=== PATIENT | female | born 1930 | race African-American/Black ===

== ENCOUNTER 2016-10-10 15:51 | Inpatient (IN) | payer MEDICARE, MEDICAID ==
--- NOTE | 2016-10-10 18:16 | ER Document Report ---
ED General - General Chief Complaint: Fall Stated Complaint: KNEE PAIN Time seen by provider: 16:20 Mode of Arrival: Medic Information source: Relative Cannot obtain history due to: Dementia Notes: 86-year-old female who is brought by [facility] from dialysis with report of plan of hip and knee pain. We have no report patient fell recently by family reports that she fell 3 weeks ago and had x-rays obtained that were normal. The report the patient has been ambulatory with a walker at home with physical therapy up until this morning when she would not bear weight with the family had the impression was due to pain. Patient cannot provide useful history due to dementia. Patient reports dialysis today when normally for her. There are allergies had no fever, cough, vomiting, or change in mental status. Physical Exam: General: Alert, appears well. HEENT: Normocephalic. Atraumatic. PERRLA. Extraocular movements intact. Oropharynx clear. Neck: Supple. Non-tender. Respiratory: No respiratory distress. Clear and equal breath sounds bilaterally. Cardiovascular: Regular rate and rhythm. Abdominal: Normal Inspection. Soft, non-tender. No distension. Normal Bowel Sounds. Extremities: All warm with 2+ pulses of cyanosis no edema. Right lower extremity shortened and externally rotated. She is tenderness to palpation diffusely to the right knee thigh and hip and seems to localize pain and to the area of the greater trochanter. Dialysis access site at right upper extremity appears healthy Neuro. Patient is awake alert oriented to person only has difficulty cooperate with neurologic testing Skin: Warm. Dry. Normal color. TRAVEL OUTSIDE OF THE [place] IN LAST 30 DAYS: No - Related Data Allergies/Adverse Reactions: ciprofloxacin [Ciprofloxacin] Allergy (Severe, Verified 08/23/16 20:22) rash sulfamethoxazole [Sulfamethoxazole] Allergy (Unknown, Verified 08/23/16 20:22) rash Past Medical History - General Information source: Emergency Med Personnel - Social History Smoking Status: Never Smoker Chew tobacco use (# tins/day): No Frequency of alcohol use: None Drug Abuse: None Family History: Other - Unable to obtain due to dementia Patient has suicidal ideation: No Patient has homicidal ideation: No - Past Medical History Cardiac Medical History: Reports: Hx Congestive Heart Failure, Hx Coronary Artery Disease, Hx Hypercholesterolemia, Hx Hypertension - on meds Denies: Hx Atrial Fibrillation, Hx Heart Attack, Hx Pulmonary Embolism Pulmonary Medical History: Reports: Hx Asthma - inhalers, Hx Bronchitis - hx of , Hx COPD, Hx Pneumonia - hx of Denies: Hx Respiratory Failure, Hx Sleep Apnea, Hx Tuberculosis Neurological Medical History: Denies: Hx Cerebrovascular Accident, Hx Seizures Endocrine Medical History: Reports: Hx Diabetes Mellitus Type 2. 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 Denies: Hx Hysterectomy, Hx Pacemaker - Immunizations Immunizations up to date: Yes Hx Diphtheria, Pertussis, Tetanus Vaccination: Yes Hx Pneumococcal Vaccination: 10/13/09 Review of Systems - Review of Systems -: Yes ROS unobtainable due to patient's medical condition Physical Exam - Vital signs Vitals: Resp 16 10/10/16 16:10 Course - Re-evaluation Re-evalutation: 10/10/16 18:15 Nursing supervisor tunnel heading reports that hospital does have dialysis beds available. Dr. Delong orthopedics asked that patient's primary care physician admit the patient due to her dementia and dialysis. I discussed case with Dr. Richardson who agrees to admit the patient - Vital Signs Vital signs: Temp Pulse Resp BP Pulse Ox 98.1 F 78 16 174/66 H 95 10/10/16 16:13 10/10/16 16:13 10/10/16 16:13 10/10/16 16:13 10/10/16 16:13 - Diagnostic Test Radiology reviewed: Reports reviewed Discharge - Discharge Clinical Impression: Closed fracture of right hip Qualifiers: Encounter type: initial encounter Qualified Code(s): S72.001A - Fracture of unspecified part of neck of right femur, initial encounter for closed fracture Condition: Fair Disposition: ADMITTED INPATIENT Admitting Provider: Debra
--- NOTE | 2016-10-10 19:43 | EKG REPORT ---
SEVERITY:- ABNORMAL ECG - RIGHT BUNDLE BRANCH BLOCK LEFT VENTRICULAR HYPERTROPHY SINUS RHYTHM : Confirmed by: Vincenzo Vasquez MD 10-Oct-2016 19:42:57
[2016-10-10 22:16] LABS: HEMATOCRIT 33.9 % (36.0-47.0); HEMOGLOBIN 11.3 g/dL (12.0-15.5); MEAN CORPUSCULAR HEMOGLOBIN 28.6 pg (27.0-33.4); MEAN CORPUSCULAR HGB CONC 33.4 g/dL (32.0-36.0); MEAN CORPUSCULAR VOLUME 86 fl (80-97); PARTIAL THROMBOPLASTIN TIME 31.4 SEC (23.5-35.8); RED BLOOD COUNT 3.97 10^6/uL (3.72-5.28); RED CELL DISTRIBUTION WIDTH 19.6 % (11.5-14.0); WHITE BLOOD COUNT 7.3 10^3/uL (4.0-10.5)
[2016-10-10] MEDS ORDERED: DEXTROSE 40% GEL 15 GM TUBE PO PRN ×2 (22:16)
[2016-10-10] MEDS ORDERED: GLUCAGON,HUMAN RECOMB 1 MG INJ IM PRN (22:16)
[2016-10-10] MEDS ORDERED: DEXTROSE 50%-WATER 25 GM/50 ML DISP.SYRIN IV PRN ×2 (22:16)
[2016-10-10] MEDS ORDERED: ACETAMINOPHEN PO PRN (22:17)
[2016-10-10] MEDS ORDERED: MORPHINE SULFATE 10 MG/ML INJ IV PRN (22:20)
[2016-10-10 22:23] LABS: ALANINE AMINOTRANSFERASE 33 U/L (9-52); ALBUMIN 3.3 g/dL (3.5-5.0); ALKALINE PHOSPHATASE 123 U/L (38-126); ANION GAP 12 (5-19); ASPARTATE AMINO TRANSFERASE 34 U/L (14-36); BILIRUBIN,TOTAL 0.8 mg/dL (0.2-1.3); BLOOD UREA NITROGEN 13 mg/dL (7-20); CARBON DIOXIDE 26 mmol/L (22-30); CHLORIDE 97 mmol/L (98-107); CREATININE RESULT 2.78 mg/dL (0.52-1.25); GLUCOSE 119 mg/dL (75-110); POTASSIUM 3.9 mmol/L (3.6-5.0); SODIUM 135.1 mmol/L (137-145); TOTAL PROTEIN 7.4 g/dL (6.3-8.2)
[2016-10-10] MEDS ORDERED: INSULIN DETEMIR 100 UNIT/ML 3 ML PEN SUBCUT SCH (22:30)
[2016-10-10] MEDS ORDERED: (PENDING PHARMACY ID) (Timolol [Betimol] 1 DROP) OU SCH (22:30)
[2016-10-10] MEDS ORDERED: BUDESONIDE/FORMOTEROL 160-4.5 MCG 60 PUFF/6 GM MDI IH SCH (22:30)
[2016-10-10] MEDS ORDERED: FUROSEMIDE 40 MG TABLET PO ONE (22:30)
[2016-10-10] MEDS ORDERED: LINAGLIPTIN PO SCH (22:30)
[2016-10-10] MEDS ORDERED: ATORVASTATIN CALCIUM 20 MG TABLET PO ONE (22:30)
[2016-10-10] MEDS ORDERED: FOLIC ACID/VITAMIN B COMP W-C CAPSULE PO SCH (22:30)
[2016-10-10] MEDS ORDERED: DRONABINOL 2.5 MG CAPSULE PO ONE (22:30)
[2016-10-10 22:32] LABS: BASOPHILS % (MANUAL) 0 % (0-2); EOSINOPHILS % (MANUAL) 3 % (0-6); LYMPHOCYTES % (MANUAL) 10 % (13-45); TOTAL CELLS COUNTED 100
[2016-10-10 22:35] LABS: ANISOCYTOSIS 2+; OVALOCYTES SLIGHT; POIKILOCYTOSIS SLIGHT; POLYCHROMASIA SLIGHT; SCHISTOCYTES SLIGHT
[2016-10-10 22:36] LABS: TOXIC VACUOLATION PRESENT
[2016-10-10 22:37] LABS: TARGET CELLS 1+
[2016-10-10 22:44] LABS: LIPASE 22.3 U/L (23-300); MAGNESIUM 1.7 mg/dL (1.6-2.3)
[2016-10-10] MEDS ORDERED: DOCUSATE SODIUM 100 MG CAPSULE PO ONE (23:00)
[2016-10-10] MEDS ORDERED: CITALOPRAM HYDROBROMIDE 20 MG TABLET PO ONE (23:00)
[2016-10-11] MEDS ORDERED: DRONABINOL 2.5 MG CAPSULE ONE (00:35)
[2016-10-11 00:38] LABS: THYROID STIMULATING HORMONE 2.16 uIU/mL (0.47-4.68)
[2016-10-11 05:12] LABS: HEMATOCRIT 35.1 % (36.0-47.0); HEMOGLOBIN 11.5 g/dL (12.0-15.5); HGB HCT DIFFERENCE -0.6; MEAN CORPUSCULAR HEMOGLOBIN 28.2 pg (27.0-33.4); MEAN CORPUSCULAR HGB CONC 32.7 g/dL (32.0-36.0); MEAN CORPUSCULAR VOLUME 86 fl (80-97); RED BLOOD COUNT 4.08 10^6/uL (3.72-5.28); RED CELL DISTRIBUTION WIDTH 20.1 % (11.5-14.0); WHITE BLOOD COUNT 7.5 10^3/uL (4.0-10.5)
[2016-10-11 05:22] LABS: LYMPHOCYTES % (AUTO) 14.3 % (13-45); MONOCYTES % (AUTO) 19.8 % (3-13); SEGMENTED NEUTROPHILS % (AUTO) 64.3 % (42-78)
[2016-10-11] MEDS: HEPARIN SOD (PORCINE) 5,000 UNIT/ML 1 ML SYRINGE SUBCUT SCH ×3 (05:22→23:00)
[2016-10-11 05:23] LABS: ABSOLUTE EOSINOPHILS # (AUTO) 0.1 10^3/uL (0.0-0.6); ABSOLUTE LYMPHOCYTES (AUTO) 1.1 10^3/uL (0.5-4.7); ABSOLUTE MONOCYTES (AUTO) 19.8 10^3/uL (0.1-1.4); ABSOLUTE NEUT (AUTO) 4.8 10^3/uL (1.7-8.2); BASOPHILS % (AUTO) 0.6 % (0-2)
[2016-10-11 05:29] LABS: ALANINE AMINOTRANSFERASE 41 U/L (9-52); ALBUMIN 3.4 g/dL (3.5-5.0); ALKALINE PHOSPHATASE 124 U/L (38-126); ANION GAP 10 (5-19); ASPARTATE AMINO TRANSFERASE 34 U/L (14-36); BILIRUBIN,TOTAL 0.9 mg/dL (0.2-1.3); BLOOD UREA NITROGEN 16 mg/dL (7-20); CALCIUM 9.1 mg/dL (8.4-10.2); CARBON DIOXIDE 28 mmol/L (22-30); CHLORIDE 97 mmol/L (98-107); CREATININE RESULT 3.06 mg/dL (0.52-1.25); Direct HDL 40 mg/dL (>40); GLUCOSE 128 mg/dL (75-110); TOTAL PROTEIN 7.5 g/dL (6.3-8.2); TRIGLYCERIDES 64 mg/dL (<150)
[2016-10-11 05:41] LABS: DIRECT LDL 49 mg/dL (<100)
[2016-10-11 05:45] LABS: CREATINE KINASE < 20 U/L (30-135)
--- NOTE | 2016-10-11 06:35 | PDOC CONSULTATION ---
Consultation Consult Date: 10/11/16 Attending physician:: ALONDRA PHILLIPS Consult reason:: Right hip pain History of Present Illness Admission Date/PCP: 10/10/16 22:09 ALONDRA PHILLIPS, Patient complains of: Patient complaining of being cold. Otherwise unable to relate a coherent history. History of Present Illness: VAISHALI GODOY is a 86 year old female Past Medical History Cardiac Medical History: Reports: Congestive Heart Failure, Coronary Artery Disease, Hyperlipidema, Hypertension - on meds Denies: Atrial Fibrillation, Myocardial Infarction, Pulmonary Embolism Pulmonary Medical History: Reports: Asthma - inhalers, Bronchitis - hx of, Chronic Obstructive Pulmonary Disease (COPD), Pneumonia - hx of Denies: Respiratory Failure, Sleep Apnea, Tuberculosis Neurological Medical History: Denies: Seizures Endocrine Medical History: Reports: Diabetes Mellitus Type 2 Denies: Diabetes Mellitus Type 1 Renal/ Medical History: Reports: End Stage Renal Disease - End-stage renal disease on maintenance hemodialysis Malignancy Medical History: Denies: Lung Cancer GI Medical History: Denies: Gastroesophageal Reflux Disease, Hiatal Hernia Musculoskeltal Medical History: Reports: 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 Denies: Fibromyalgia Psychiatric Medical History: Denies: Depression Hematology: Reports: Anemia - hx of Past Surgical History Past Surgical History: Reports: Cardiac Catheterization - cardiac stent 2010, Vascular Surgery - Fistula to the right arm for dialysis Denies: Amputation, Hysterectomy, Pacemaker Social History Information Source: [facility] Records Lives with: Jail Smoking Status: Never Smoker Frequency of Alcohol Use: None Hx Recreational Drug Use: No Drugs: None Hx Prescription Drug Abuse: No Family History Family History: Other - Unable to obtain due to dementia Parental Family History Reviewed: No Children Family History Reviewed: No Sibling(s) Family History Reviewed.: No Medication/Allergy Home Medications: Acetaminophen [Tylenol Arthritis 650 mg Tablet] 1 tab PO Q6 PRN 06/11/14 Albuterol Sulfate [Proair HFA] 2 puff PO Q4H 06/11/14 Aspirin [Ecotrin] 81 mg PO DAILY 06/11/14 Brimonidine Tartrate [Alphagan 0.2% Oph Soln 5 ml] 1 drop OU BID 06/11/14 Carvedilol [Coreg] 2.5 tab PO BID 06/11/14 Ferrous Sulfate [Iron Supplement] 1 tab PO BID 06/11/14 Fexofenadine HCl [Debi] 180 mg PO DAILY 06/11/14 Insulin Aspart [Novolog Flexpen] 5 units SUBCUT AC 06/11/14 Insulin Detemir [Levemir Flextouch] 10 units SUBCUT QHS 06/11/14 Insulin Detemir [Levemir Flextouch] 30 units SUBCUT QAM 06/11/14 Linagliptin [Tradjenta] 1 tab PO DAILY 06/11/14 Omeprazole 20 mg PO DAILY 06/11/14 Timolol [Betimol] 1 drop OU BID 06/11/14 Azelastine/Fluticasone [Dymista Nasal [place]] 1 spray NS BID 10/17/15 B Complex & C No.20/Folic Acid [Renal Caps Softgel] 1 mg PO DAILY 10/17/15 Epoetin Johnathan [Procrit Inj 20,000 Unit/1 ml Vial (Renal)] 10,000 unit IV .DIALYSIS PRN #0 ml 10/25/15 Furosemide [Lasix 40 mg Tablet] 40 mg PO BID #60 tablet 10/25/15 Docusate Sodium [Stool Softener] 100 mg PO DAILY 11/17/15 Mirtazapine 7.5 mg PO QHS 11/17/15 Atorvastatin Calcium [Lipitor 20 mg Tablet] 20 mg PO QHS 07/20/16 Citalopram Hydrobromide [Celexa 20 mg Tablet] 20 mg PO DAILY 07/20/16 Dronabinol [Marinol] 5 mg PO BID 07/20/16 Budesonide/Formoterol Fumarate [Symbicort HFA 160-4.5 mcg Inhaler 6 gm] 60 puff IH PRN PRN 08/26/16 Guaifenesin/Dextromethorphan [Tussin Dm Cough & Chest Liquid] 237 ml PO PRN PRN 08/26/16 Allergies/Adverse Reactions: ciprofloxacin [Ciprofloxacin] Allergy (Severe, Verified 08/23/16 20:22) rash sulfamethoxazole [Sulfamethoxazole] Allergy (Unknown, Verified 08/23/16 20:22) rash Review of Systems ROS unobtainable: Due to mental status Physical Exam Vital Signs: Temp Pulse Resp BP Pulse Ox 36.8 C 79 16 164/65 H 96 10/10/16 23:11 10/10/16 23:11 10/10/16 23:11 10/10/16 23:11 10/10/16 23:11 Intake & Output 10/09/16 10/10/16 10/11/16 06:59 06:59 06:59 Intake Total 240 Balance 240 Weight 67.5 kg General appearance: PRESENT: mild distress Head exam: PRESENT: normocephalic Respiratory exam: PRESENT: unlabored Cardiovascular exam: PRESENT: RRR Pulses: PRESENT: +1 pedal pulses bilateral Vascular exam: PRESENT: normal capillary refill GI/Abdominal exam: PRESENT: soft Rectal exam: PRESENT: deferred Extremities exam: PRESENT: other - Right lower extremity shortened and externally rotated. This brisk capillary refill to the digits. Sensory examination is intact. Motor examination is inconsistent Psychiatric exam: PRESENT: depressed Results Laboratory Results: 10/11/16 04:06 10/11/16 04:06 10/11/16 10/11/16 04:06 04:06 WBC 7.5 RBC 4.08 Hgb 11.5 L Hct 35.1 L MCV 86 MCH 28.2 MCHC 32.7 RDW 20.1 H Plt Count 268 Seg Neutrophils % 64.3 Lymphocytes % 14.3 Monocytes % 19.8 H Eosinophils % 1.0 Basophils % 0.6 Absolute Neutrophils 4.8 Absolute Lymphocytes 1.1 Absolute Monocytes 19.8 H Absolute Eosinophils 0.1 Absolute Basophils 0.0 Sodium 135.0 L Potassium 4.0 Chloride 97 L Carbon Dioxide 28 Anion Gap 10 BUN 16 Creatinine 3.06 H Est GFR ( Amer) 17 L Est GFR (Non-Af Amer) 14 L Glucose 128 H Calcium 9.1 Total Bilirubin 0.9 AST 34 ALT 41 Alkaline Phosphatase 124 Total Protein 7.5 Albumin 3.4 L Triglycerides 64 Cholesterol 121.30 LDL Cholesterol Direct 49 VLDL Cholesterol 13.0 HDL Cholesterol 40 10/11/16 10/11/16 04:06 04:06 Creatine Kinase < 20 L Troponin I 0.029 Impressions: Hip/Pelvis X-Ray 10/10/16 16:26 IMPRESSION: Right femoral neck fracture with mild varus angulation and impaction. Knee X-Ray 10/10/16 16:27 IMPRESSION: NO RADIOGRAPHIC EVIDENCE OF ACUTE INJURY. Chest X-Ray 10/10/16 17:45 IMPRESSION: CARDIAC ENLARGEMENT. VASCULAR CONGESTION. Status: Image reviewed by me - Radiographs from 09/25/2016 demonstrate a valgus impacted right femoral neck fracture. Current radiographs demonstrated displaced right femoral neck fracture. Assessment & Plan - Diagnosis (1) Closed right hip fracture Qualifiers: Encounter type: initial encounter Qualified Code(s): S72.001A - Fracture of unspecified part of neck of right femur, initial encounter for closed fracture Is this a current diagnosis for this admission?: YesPlan: 86-year-old black female with multiple ongoing medical comorbidities including dialysis dependent renal failure now with a displaced right femoral neck fracture. The treatment recommended would be hemiarthroplasty. This is an operation that could be performed under regional anesthetic in approximately 25 minutes with approximately 100 mL of blood loss. Surgery will be scheduled pending medical clearance. - Time Time Spent: 50 to 70 Minutes Critical Time spent with patient: 15-24 minutes Anticipated discharge: SNF Within: Other
--- NOTE | 2016-10-11 12:19 | PDOC H&P ---
History of Present Illness Admission Date/PCP: 10/10/16 22:09 ALONDRA PHILLIPS, History of Present Illness: Patient 86-year-old female with end-stage renal disease on maintenance hemodialysis, she was transferred from dialysis center to the emergency room because of pain in the right hip and she was unable to bear weight. She fell about 3 weeks ago and at that time she was seen in the office. X-rays were done and it was negative for any acute fracture. In the emergency room she was evaluated. X-rays were done and it showed fracture of the neck of the right femur, patient is to be admitted to be seen by orthopedic for surgery. Past Medical History Cardiac Medical History: Reports: Congestive Heart Failure, Coronary Artery Disease, Hyperlipidema, Hypertension - on meds Pulmonary Medical History: Reports: Asthma - inhalers, Bronchitis - hx of, Chronic Obstructive Pulmonary Disease (COPD), Pneumonia - hx of Endocrine Medical History: Reports: Diabetes Mellitus Type 2 Renal/ Medical History: Reports: End Stage Renal Disease - End-stage renal disease on maintenance hemodialysis Musculoskeltal Medical History: Reports: 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 Hematology: Reports: Anemia - hx of Past Surgical History Past Surgical History: Reports: Cardiac Catheterization - cardiac stent 2010, Vascular Surgery - Fistula to the right arm for dialysis Social History Lives with: Retirement Smoking Status: Never Smoker Frequency of Alcohol Use: None Hx Recreational Drug Use: No Drugs: None Hx Prescription Drug Abuse: No Family History Family History: Other - Unable to obtain due to dementia Parental Family History Reviewed: Yes Children Family History Reviewed: Yes Sibling(s) Family History Reviewed.: Yes Medication/Allergy Home Medications: Acetaminophen [Tylenol Arthritis 650 mg Tablet] 1 tab PO Q6 PRN 06/11/14 Albuterol Sulfate [Proair HFA] 2 puff PO Q4H 06/11/14 Aspirin [Ecotrin] 81 mg PO DAILY 06/11/14 Brimonidine Tartrate [Alphagan 0.2% Oph Soln 5 ml] 1 drop OU BID 06/11/14 Carvedilol [Coreg] 2.5 tab PO BID 06/11/14 Ferrous Sulfate [Iron Supplement] 1 tab PO BID 06/11/14 Fexofenadine HCl [Debi] 180 mg PO DAILY 06/11/14 Insulin Aspart [Novolog Flexpen] 5 units SUBCUT AC 06/11/14 Insulin Detemir [Levemir Flextouch] 10 units SUBCUT QHS 06/11/14 Insulin Detemir [Levemir Flextouch] 30 units SUBCUT QAM 06/11/14 Linagliptin [Tradjenta] 1 tab PO DAILY 06/11/14 Omeprazole 20 mg PO DAILY 06/11/14 Timolol [Betimol] 1 drop OU BID 06/11/14 Azelastine/Fluticasone [Dymista Nasal [place]] 1 spray NS BID 10/17/15 B Complex & C No.20/Folic Acid [Renal Caps Softgel] 1 mg PO DAILY 10/17/15 Epoetin Johnathan [Procrit Inj 20,000 Unit/1 ml Vial (Renal)] 10,000 unit IV .DIALYSIS PRN #0 ml 10/25/15 Furosemide [Lasix 40 mg Tablet] 40 mg PO BID #60 tablet 10/25/15 Docusate Sodium [Stool Softener] 100 mg PO DAILY 11/17/15 Mirtazapine 7.5 mg PO QHS 11/17/15 Atorvastatin Calcium [Lipitor 20 mg Tablet] 20 mg PO QHS 07/20/16 Citalopram Hydrobromide [Celexa 20 mg Tablet] 20 mg PO DAILY 07/20/16 Dronabinol [Marinol] 5 mg PO BID 07/20/16 Budesonide/Formoterol Fumarate [Symbicort HFA 160-4.5 mcg Inhaler 6 gm] 60 puff IH PRN PRN 08/26/16 Guaifenesin/Dextromethorphan [Tussin Dm Cough & Chest Liquid] 237 ml PO PRN PRN 08/26/16 Allergies/Adverse Reactions: ciprofloxacin [Ciprofloxacin] Allergy (Severe, Verified 08/23/16 20:22) rash sulfamethoxazole [Sulfamethoxazole] Allergy (Unknown, Verified 08/23/16 20:22) rash Review of Systems ROS unobtainable: Other Constitutional: ABSENT: chills, fever(s), headache(s), weight gain, weight loss Eyes: ABSENT: visual disturbances Ears: ABSENT: hearing changes Cardiovascular: ABSENT: chest pain, dyspnea on exertion, edema, orthropnea, palpitations Respiratory: ABSENT: cough, hemoptysis Gastrointestinal: ABSENT: abdominal pain, constipation, diarrhea, hematemesis, hematochezia, nausea, vomiting Genitourinary: ABSENT: dysuria, hematuria Musculoskeletal: PRESENT: other - joint pain Integumentary: ABSENT: rash, wounds Neurological: ABSENT: abnormal gait, abnormal speech, confusion, dizziness, focal weakness, syncope Psychiatric: ABSENT: anxiety, depression, homidical ideation, suicidal ideation Endocrine: ABSENT: cold intolerance, heat intolerance, menstrual abnormalities, polydipsia, polyuria Hematologic/Lymphatic: ABSENT: easy bleeding, easy bruising, lymphadenopathy Physical Exam Vital Signs: Temp Pulse Resp BP Pulse Ox 98.3 F 79 16 164/65 H 96 10/10/16 23:11 10/10/16 23:11 10/10/16 23:11 10/10/16 23:11 10/10/16 23:11 Intake & Output 10/10/16 10/11/16 10/12/16 06:59 06:59 06:59 Intake Total 240 Balance 240 Weight 67.5 kg General appearance: PRESENT: no acute distress Eye exam: PRESENT: PERRLA Respiratory exam: PRESENT: clear to auscultation kennedi Cardiovascular exam: PRESENT: +S1, +S2 GI/Abdominal exam: PRESENT: soft Neurological exam: PRESENT: alert, CN II-XII grossly intact Results Laboratory Results: 10/11/16 04:06 10/11/16 04:06 10/11/16 10/11/16 04:06 04:06 WBC 7.5 RBC 4.08 Hgb 11.5 L Hct 35.1 L MCV 86 MCH 28.2 MCHC 32.7 RDW 20.1 H Plt Count 268 Seg Neutrophils % 64.3 Lymphocytes % 14.3 Monocytes % 19.8 H Eosinophils % 1.0 Basophils % 0.6 Absolute Neutrophils 4.8 Absolute Lymphocytes 1.1 Absolute Monocytes 19.8 H Absolute Eosinophils 0.1 Absolute Basophils 0.0 Sodium 135.0 L Potassium 4.0 Chloride 97 L Carbon Dioxide 28 Anion Gap 10 BUN 16 Creatinine 3.06 H Est GFR ( Amer) 17 L Est GFR (Non-Af Amer) 14 L Glucose 128 H Calcium 9.1 Total Bilirubin 0.9 AST 34 ALT 41 Alkaline Phosphatase 124 Total Protein 7.5 Albumin 3.4 L Triglycerides 64 Cholesterol 121.30 LDL Cholesterol Direct 49 VLDL Cholesterol 13.0 HDL Cholesterol 40 10/11/16 10/11/16 10/11/16 04:06 04:06 10:43 Creatine Kinase < 20 L < 20 L Troponin I 0.029 10/11/16 10:43 Creatine Kinase Troponin I 0.023 Impressions: Hip/Pelvis X-Ray 10/10/16 16:26 IMPRESSION: Right femoral neck fracture with mild varus angulation and impaction. Knee X-Ray 10/10/16 16:27 IMPRESSION: NO RADIOGRAPHIC EVIDENCE OF ACUTE INJURY. Chest X-Ray 10/10/16 17:45 IMPRESSION: CARDIAC ENLARGEMENT. VASCULAR CONGESTION. Assessment & Plan - Diagnosis (1) Closed right hip fracture Qualifiers: Encounter type: initial encounter Qualified Code(s): S72.001A - Fracture of unspecified part of neck of right femur, initial encounter for closed fracture Is this a current diagnosis for this admission?: YesPlan: Management per orthopedic (2) End-stage renal disease on hemodialysis Is this a current diagnosis for this admission?: YesPlan: Consultation from nephrology for hemodialysis
[2016-10-11] MEDS: DRONABINOL 2.5 MG CAPSULE PO SCH ×2 (12:55→17:13)
[2016-10-11] MEDS: CITALOPRAM HYDROBROMIDE 20 MG TABLET PO SCH (12:56)
[2016-10-11] MEDS: ACETAMINOPHEN 325 MG TABLET PO PRN ×3 (12:56→23:01)
[2016-10-11] MEDS: FUROSEMIDE 40 MG TABLET PO SCH ×2 (12:58→17:13)
[2016-10-11] MEDS: CARVEDILOL 12.5 MG TABLET PO SCH ×2 (12:58→22:59)
[2016-10-11] MEDS: DOCUSATE SODIUM 100 MG CAPSULE PO SCH (12:58)
--- NOTE | 2016-10-11 17:37 | PDOC CONSULTATION ---
Consultation Consult Date: 10/11/16 Attending physician:: ALONDRA PHILLIPS Consult reason:: I was asked by Dr. Phillips to see this patient to supervise dialysis will admitted to the hospital. History of Present Illness Admission Date/PCP: 10/10/16 22:09 ALONDRA PHILLIPS, History of Present Illness: Patient 86-year-old female with end-stage renal disease on maintenance hemodialysis, she was transferred from dialysis center to the emergency room because of pain in the right hip and she was unable to bear weight. She fell about 3 weeks ago and at that time she was seen in the office Dr. Phillips. X- rays were done . In the emergency room she was evaluated. X-rays were done and it showed fracture of the neck of the right femur, patient is to be admitted to be seen by orthopedic for surgery. Orthopedic surgeon, Dr. Neff was consulted and he recommended to do hemiarthroplasty. I saw the patient during dialysis to around 8:30 AM this morning. She could not tell me why she is in the hospital. She tells me she just feels sick but could not really explain it. She has baseline dementia and cannot give any further history. During dialysis her blood pressure is slightly elevated otherwise she was stable. There was an issue with her giving consent because she was initially refusing dialysis so our dialysis nurse had to call her daughter to give consent. Otherwise she tolerated dialysis very well without any problems. 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 Psychiatric Medical History: Reports: Dementia Infectious Medical History: Reports: Methicillin-resist Staph Aureus Hematology Medical History: Reports Anemia of Chronic Kidney Disease Past Surgical History Past Surgical History: Reports: Cardiac Catheterization - cardiac stent 2010, Coronary Stent, Dialysis Access Surgery AVF, Orthopedic Surgery - Back surgery Social History Lives with: Family Smoking Status: Never Smoker Frequency of Alcohol Use: None Hx Recreational Drug Use: No Drugs: None Hx Prescription Drug Abuse: No Family History Family History: CVA - Father, DM - Sister and brother and parents, Malignancy - Mother Parental Family History Reviewed: Yes Children Family History Reviewed: Unknown Sibling(s) Family History Reviewed.: Yes Medication/Allergy Home Medications: Acetaminophen [Tylenol Arthritis 650 mg Tablet] 1 tab PO Q6 PRN 06/11/14 Albuterol Sulfate [Proair HFA] 2 puff PO Q4H 06/11/14 Aspirin [Ecotrin] 81 mg PO DAILY 06/11/14 Brimonidine Tartrate [Alphagan 0.2% Oph Soln 5 ml] 1 drop OU BID 06/11/14 Carvedilol [Coreg] 2.5 tab PO BID 06/11/14 Ferrous Sulfate [Iron Supplement] 1 tab PO BID 06/11/14 Fexofenadine HCl [Debi] 180 mg PO DAILY 06/11/14 Insulin Aspart [Novolog Flexpen] 5 units SUBCUT AC 06/11/14 Insulin Detemir [Levemir Flextouch] 10 units SUBCUT QHS 06/11/14 Insulin Detemir [Levemir Flextouch] 30 units SUBCUT QAM 06/11/14 Linagliptin [Tradjenta] 1 tab PO DAILY 06/11/14 Omeprazole 20 mg PO DAILY 06/11/14 Timolol [Betimol] 1 drop OU BID 06/11/14 Azelastine/Fluticasone [Dymista Nasal [place]] 1 spray NS BID 10/17/15 B Complex & C No.20/Folic Acid [Renal Caps Softgel] 1 mg PO DAILY 10/17/15 Epoetin Johnathan [Procrit Inj 20,000 Unit/1 ml Vial (Renal)] 10,000 unit IV .DIALYSIS PRN #0 ml 10/25/15 Furosemide [Lasix 40 mg Tablet] 40 mg PO BID #60 tablet 10/25/15 Docusate Sodium [Stool Softener] 100 mg PO DAILY 11/17/15 Mirtazapine 7.5 mg PO QHS 11/17/15 Atorvastatin Calcium [Lipitor 20 mg Tablet] 20 mg PO QHS 07/20/16 Citalopram Hydrobromide [Celexa 20 mg Tablet] 20 mg PO DAILY 07/20/16 Dronabinol [Marinol] 5 mg PO BID 07/20/16 Budesonide/Formoterol Fumarate [Symbicort HFA 160-4.5 mcg Inhaler 6 gm] 60 puff IH PRN PRN 08/26/16 Guaifenesin/Dextromethorphan [Tussin Dm Cough & Chest Liquid] 237 ml PO PRN PRN 08/26/16 Allergies/Adverse Reactions: ciprofloxacin [Ciprofloxacin] Allergy (Severe, Verified 08/23/16 20:22) rash sulfamethoxazole [Sulfamethoxazole] Allergy (Unknown, Verified 08/23/16 20:22) rash Review of Systems ROS unobtainable: Due to mental status - Patient has baseline dementia and could not really tell me much. Physical Exam Vital Signs: Temp Pulse Resp BP Pulse Ox 98.5 F 81 18 152/59 H 95 10/11/16 15:45 10/11/16 15:45 10/11/16 15:45 10/11/16 15:45 10/11/16 15:45 Intake & Output 10/10/16 10/11/16 10/12/16 06:59 06:59 06:59 Intake Total 240 0 Balance 240 0 Weight 67.5 kg Vital signs during dialysis when I saw her this morning: Blood pressure of 163/ 65, heart rate of 85, blood flow rate of 300 mL per minute, dialysate flow rate of 600 mL per minute. Exam: General appearance: no acute distress, cooperative, well-developed, well- nourished Head exam: PRESENT: atraumatic, normocephalic Eye exam: PRESENT: Conjunctiva [place], EOMI, PERRLA. ABSENT: conjunctival injection, scleral icterus Mouth exam: PRESENT: moist, neck supple, tongue midline Neck exam: PRESENT: full ROM. ABSENT: carotid bruit, JVD, lymphadenopathy, thyromegaly Respiratory exam: PRESENT: clear to auscultation bilaterally. ABSENT: rales, rhonchi, stridor, wheezes Cardiovascular exam: PRESENT: RRR, +S1, +S2. ABSENT: systolic murmur Pulses: PRESENT: normal radial pulses, normal dorsalis pedis pulses GI/Abdominal exam: PRESENT: normal bowel sounds, soft. ABSENT: guarding, mass, tenderness Rectal exam: deferred Extremities exam: PRESENT: full ROM. ABSENT: calf tenderness, pedal edema Musculoskeletal: PRESENT: full ROM. ABSENT: deformity Neurological exam: PRESENT: alert, Awake, Oriented to person, Oriented to place , not oriented to time, reflexes normal, CN II-XII grossly intact. ABSENT: motor sensory deficit Psychiatric exam: PRESENT: appropriate affect, normal mood. ABSENT: homicidal ideation, suicidal ideation Skin exam: PRESENT: intact, dry, warm. ABSENT: rash Results Laboratory Results: 10/11/16 04:06 10/11/16 04:06 10/11/16 10/11/16 04:06 04:06 WBC 7.5 RBC 4.08 Hgb 11.5 L Hct 35.1 L MCV 86 MCH 28.2 MCHC 32.7 RDW 20.1 H Plt Count 268 Seg Neutrophils % 64.3 Lymphocytes % 14.3 Monocytes % 19.8 H Eosinophils % 1.0 Basophils % 0.6 Absolute Neutrophils 4.8 Absolute Lymphocytes 1.1 Absolute Monocytes 19.8 H Absolute Eosinophils 0.1 Absolute Basophils 0.0 Sodium 135.0 L Potassium 4.0 Chloride 97 L Carbon Dioxide 28 Anion Gap 10 BUN 16 Creatinine 3.06 H Est GFR ( Amer) 17 L Est GFR (Non-Af Amer) 14 L Glucose 128 H Calcium 9.1 Total Bilirubin 0.9 AST 34 ALT 41 Alkaline Phosphatase 124 Total Protein 7.5 Albumin 3.4 L Triglycerides 64 Cholesterol 121.30 LDL Cholesterol Direct 49 VLDL Cholesterol 13.0 HDL Cholesterol 40 10/11/16 10/11/16 10/11/16 04:06 04:06 10:43 Creatine Kinase < 20 L < 20 L Troponin I 0.029 10/11/16 10:43 Creatine Kinase Troponin I 0.023 Impressions: Hip/Pelvis X-Ray 10/10/16 16:26 IMPRESSION: Right femoral neck fracture with mild varus angulation and impaction. Knee X-Ray 10/10/16 16:27 IMPRESSION: NO RADIOGRAPHIC EVIDENCE OF ACUTE INJURY. Chest X-Ray 10/10/16 17:45 IMPRESSION: CARDIAC ENLARGEMENT. VASCULAR CONGESTION. Assessment & Plan - Diagnosis (1) End-stage renal disease on hemodialysis Is this a current diagnosis for this admission?: YesPlan: We did dialysis today for 3 hours, using the patient's AV fistula, with 3 potassium bath, blood flow rate of 300 mL per minute, dialysate flow rate of 600 mL per minute, ultrafiltration as tolerated, no heparin and no Procrit during dialysis We'll continue hemodialysis support while here in the hospital. From nephrology standpoint no contraindication for patient to do a hemiarthroplasty. (2) Hypertension Is this a current diagnosis for this admission?: YesPlan: Continue current blood pressure medications. (3) Closed right hip fracture Qualifiers: Encounter type: initial encounter Qualified Code(s): S72.001A - Fracture of unspecified part of neck of right femur, initial encounter for closed fracture Is this a current diagnosis for this admission?: YesPlan: Management per orthopedic surgeon. - Notes Notes: Thank you very much for this consultation. I will continue to supervise dialysis will the patient is here in the hospital. - Time Time Spent: 30 to 50 Minutes
[2016-10-11] MEDS: ATORVASTATIN CALCIUM 20 MG TABLET PO SCH (22:59)
[2016-10-12] MEDS: HEPARIN SOD (PORCINE) 5,000 UNIT/ML 1 ML SYRINGE SUBCUT SCH ×3 (05:18→21:05)
[2016-10-12] MEDS: ACETAMINOPHEN 325 MG TABLET PO PRN ×3 (05:28→18:10)
[2016-10-12 06:19] LABS: HEMOGLOBIN 10.6 g/dL (12.0-15.5); HGB HCT DIFFERENCE -0.2; MEAN CORPUSCULAR HEMOGLOBIN 28.7 pg (27.0-33.4); MEAN CORPUSCULAR HGB CONC 33.2 g/dL (32.0-36.0); MEAN CORPUSCULAR VOLUME 87 fl (80-97); RED CELL DISTRIBUTION WIDTH 19.4 % (11.5-14.0); WHITE BLOOD COUNT 7.5 10^3/uL (4.0-10.5)
[2016-10-12 06:44] LABS: ALANINE AMINOTRANSFERASE 36 U/L (9-52); ALBUMIN 2.7 g/dL (3.5-5.0); ALKALINE PHOSPHATASE 118 U/L (38-126); ANION GAP 11 (5-19); ASPARTATE AMINO TRANSFERASE 25 U/L (14-36); BILIRUBIN,TOTAL 0.6 mg/dL (0.2-1.3); BLOOD UREA NITROGEN 17 mg/dL (7-20); CALCIUM 9.2 mg/dL (8.4-10.2); CARBON DIOXIDE 30 mmol/L (22-30); CHLORIDE 97 mmol/L (98-107); CREATININE RESULT 3.09 mg/dL (0.52-1.25); GLUCOSE 156 mg/dL (75-110); POTASSIUM 3.6 mmol/L (3.6-5.0); SODIUM 137.7 mmol/L (137-145); TOTAL PROTEIN 6.7 g/dL (6.3-8.2)
[2016-10-12 07:17] LABS: BASOPHILS % (MANUAL) 0 % (0-2); EOSINOPHILS % (MANUAL) 3 % (0-6); LYMPHOCYTES % (MANUAL) 5 % (13-45); TOTAL CELLS COUNTED 100
[2016-10-12 07:18] LABS: ANISOCYTOSIS 1+; OVALOCYTES SLIGHT; POIKILOCYTOSIS 2+; POLYCHROMASIA SLIGHT; TARGET CELLS 1+; TEAR DROP CELLS SLIGHT
--- NOTE | 2016-10-12 09:04 | PDOC PROGRESS REPORT ---
Subjective Progress Note for:: 10/12/16 Subjective:: Patient's minimally responsive Physical Exam Vital Signs: Temp Pulse Resp BP Pulse Ox 36.9 C 79 18 139/51 H 95 10/12/16 00:00 10/12/16 00:00 10/12/16 00:00 10/12/16 00:00 10/12/16 00:00 Intake & Output 10/11/16 10/12/16 10/13/16 06:59 06:59 06:59 Intake Total 240 120 0 Output Total 0 Balance 240 120 0 Weight 67.5 kg 68.3 kg General appearance: PRESENT: no acute distress Head exam: PRESENT: normocephalic Vascular exam: PRESENT: normal capillary refill GI/Abdominal exam: PRESENT: soft Musculoskeletal exam: PRESENT: other - Right lower extremity shortened and excellent rotated. This brisk capillary refill. Results Laboratory Results: 10/12/16 05:53 10/12/16 05:53 10/12/16 10/12/16 05:53 05:53 WBC 7.5 RBC 3.70 L Hgb 10.6 L Hct 32.0 L MCV 87 MCH 28.7 MCHC 33.2 RDW 19.4 H Plt Count 242 Seg Neutrophils % Not Reportable Lymphocytes % Not Reportable Monocytes % Not Reportable Eosinophils % Not Reportable Basophils % Not Reportable Absolute Neutrophils Not Reportable Absolute Lymphocytes Not Reportable Absolute Monocytes Not Reportable Absolute Eosinophils Not Reportable Absolute Basophils Not Reportable Sodium 137.7 Potassium 3.6 Chloride 97 L Carbon Dioxide 30 Anion Gap 11 BUN 17 Creatinine 3.09 H Est GFR ( Amer) 17 L Est GFR (Non-Af Amer) 14 L Glucose 156 H Calcium 9.2 Total Bilirubin 0.6 AST 25 ALT 36 Alkaline Phosphatase 118 Total Protein 6.7 Albumin 2.7 L 10/11/16 10/11/16 10/11/16 04:06 04:06 10:43 Creatine Kinase < 20 L < 20 L Troponin I 0.029 10/11/16 10:43 Creatine Kinase Troponin I 0.023 Impressions: Hip/Pelvis X-Ray 10/10/16 16:26 IMPRESSION: Right femoral neck fracture with mild varus angulation and impaction. Knee X-Ray 10/10/16 16:27 IMPRESSION: NO RADIOGRAPHIC EVIDENCE OF ACUTE INJURY. Chest X-Ray 10/10/16 17:45 IMPRESSION: CARDIAC ENLARGEMENT. VASCULAR CONGESTION. Assessment & Plan - Diagnosis (1) Closed right hip fracture Qualifiers: Encounter type: initial encounter Qualified Code(s): S72.001A - Fracture of unspecified part of neck of right femur, initial encounter for closed fracture Is this a current diagnosis for this admission?: YesPlan: 86-year-old black female with significant issues of dementia and other comorbidities including cardiac issues. Tentative plan will be for a right proximal femoral hemiarthroplasty under choice anesthesia. I have tentatively been waiting for a clearly defined medical clearance for the surgery as requested by anesthesia yesterday. We'll tentatively plan to proceed with the surgical procedure tomorrow under choice anesthesia - Time Time Spent with patient: 15-24 minutes Anticipated discharge: SNF Within: within 72 hours
[2016-10-12] MEDS: DRONABINOL 2.5 MG CAPSULE PO SCH ×2 (09:34→18:10)
[2016-10-12] MEDS: CITALOPRAM HYDROBROMIDE 20 MG TABLET PO SCH (09:34)
[2016-10-12] MEDS: DOCUSATE SODIUM 100 MG CAPSULE PO SCH (09:34)
[2016-10-12] MEDS: FUROSEMIDE 40 MG TABLET PO SCH ×2 (09:34→18:10)
[2016-10-12] MEDS: CARVEDILOL 12.5 MG TABLET PO SCH ×2 (09:34→21:13)
--- NOTE | 2016-10-12 11:05 | PDOC PROGRESS REPORT ---
Subjective Progress Note for:: 10/12/16 Subjective:: Patient is doing fair at alert awake other than that no events heparin overnight. Patient's serum is supplied a forgoing further surgery by Dr. Neff tomorrow and ask for the preop cardiac clearance. Patient's denied any chest pain no shortness of the breath Physical Exam Vital Signs: Temp Pulse Resp BP Pulse Ox 98.4 F 79 18 139/51 H 95 10/12/16 00:00 10/12/16 00:00 10/12/16 00:00 10/12/16 00:00 10/12/16 00:00 Intake & Output 10/11/16 10/12/16 10/13/16 06:59 06:59 06:59 Intake Total 240 120 0 Output Total 0 Balance 240 120 0 Weight 67.5 kg 68.3 kg General appearance: PRESENT: no acute distress Head exam: PRESENT: normocephalic Eye exam: PRESENT: PERRLA Mouth exam: PRESENT: neck supple Respiratory exam: PRESENT: clear to auscultation kennedi Cardiovascular exam: PRESENT: +S1, +S2 GI/Abdominal exam: PRESENT: normal bowel sounds, soft. ABSENT: tenderness Extremities exam: ABSENT: pedal edema Neurological exam: PRESENT: alert, awake Skin exam: PRESENT: normal color Results Laboratory Results: 10/12/16 05:53 10/12/16 05:53 10/12/16 10/12/16 05:53 05:53 WBC 7.5 RBC 3.70 L Hgb 10.6 L Hct 32.0 L MCV 87 MCH 28.7 MCHC 33.2 RDW 19.4 H Plt Count 242 Seg Neutrophils % Not Reportable Lymphocytes % Not Reportable Monocytes % Not Reportable Eosinophils % Not Reportable Basophils % Not Reportable Absolute Neutrophils Not Reportable Absolute Lymphocytes Not Reportable Absolute Monocytes Not Reportable Absolute Eosinophils Not Reportable Absolute Basophils Not Reportable Sodium 137.7 Potassium 3.6 Chloride 97 L Carbon Dioxide 30 Anion Gap 11 BUN 17 Creatinine 3.09 H Est GFR ( Amer) 17 L Est GFR (Non-Af Amer) 14 L Glucose 156 H Calcium 9.2 Total Bilirubin 0.6 AST 25 ALT 36 Alkaline Phosphatase 118 Total Protein 6.7 Albumin 2.7 L 10/11/16 10/11/16 10/11/16 04:06 04:06 10:43 Creatine Kinase < 20 L < 20 L Troponin I 0.029 10/11/16 10:43 Creatine Kinase Troponin I 0.023 Impressions: Hip/Pelvis X-Ray 10/10/16 16:26 IMPRESSION: Right femoral neck fracture with mild varus angulation and impaction. Knee X-Ray 10/10/16 16:27 IMPRESSION: NO RADIOGRAPHIC EVIDENCE OF ACUTE INJURY. Chest X-Ray 10/10/16 17:45 IMPRESSION: CARDIAC ENLARGEMENT. VASCULAR CONGESTION. Assessment & Plan - Diagnosis (1) Closed right hip fracture Qualifiers: Encounter type: initial encounter Qualified Code(s): S72.001A - Fracture of unspecified part of neck of right femur, initial encounter for closed fracture Is this a current diagnosis for this admission?: YesPlan: Plan for the surgery the patient's came from the cardiac standpoint for him to Dr. Neff (2) End-stage renal disease on hemodialysis Is this a current diagnosis for this admission?: YesPlan: Currently on hemodialysis follow with the nephrology (3) Hypertension Is this a current diagnosis for this admission?: YesPlan: Stable (4) Acute diastolic (congestive) heart failure Is this a current diagnosis for this admission?: YesPlan: Regarding the 2-D echo and consult cardiology Dr. Irving before the surgery (5) Anemia in chronic kidney disease Is this a current diagnosis for this admission?: YesPlan: Table (6) Chronic kidney disease (CKD), stage V Is this a current diagnosis for this admission?: Yes - Time Time Spent with patient: 15-24 minutes Medications reviewed and adjusted accordingly: Yes Anticipated discharge: Other - Inpatient Certification Medical Necessity: Significant Comorbidiites Make Outpatient Treatment Too Risky , Need For Continuous Telemetry Monitoring, Need for Surgery - Plan Summary Plan Summary: Part of the chest x-ray EKG and 2-D echocardiogram and consult cardiology and if is all stable patient is stable for the for the surgery tomorrow
[2016-10-12] MEDS: ATORVASTATIN CALCIUM 20 MG TABLET PO SCH (21:13)
--- NOTE | 2016-10-12 21:54 | Progress Note ---
Provider Note Provider Note: Cardiology Note: Formal consult dictated. The patient will be mild to moderate ( acceptable) cardiac risk for this R hip surgery.Please see consult for recomendations.
--- NOTE | 2016-10-12 22:40 | EKG REPORT ---
SEVERITY:- ABNORMAL ECG - SINUS RHYTHM RBBB AND LAFB LVH BY VOLTAGE : Confirmed by: Vincenzo Vasquez MD 12-Oct-2016 22:39:52
[2016-10-13] MEDS: ACETAMINOPHEN 325 MG TABLET PO PRN ×5 (01:05→23:57)
[2016-10-13] MEDS ORDERED: VANCOMYCIN HCL 1,000 MG in DEXTROSE 5%-WATER 250 ML IV ONE ×2 (05:00→21:00)
[2016-10-13] MEDS ORDERED: TRANEXAMIC ACID 1,000 MG in DEXTROSE 5%-WATER 50 ML IV ONE (05:00)
[2016-10-13] MEDS: HEPARIN SOD (PORCINE) 5,000 UNIT/ML 1 ML SYRINGE SUBCUT SCH ×3 (05:45→23:14)
[2016-10-13 05:47] LABS: HEMATOCRIT 31.2 % (36.0-47.0); HEMOGLOBIN 10.2 g/dL (12.0-15.5); HGB HCT DIFFERENCE -0.6; MEAN CORPUSCULAR HEMOGLOBIN 28.4 pg (27.0-33.4); MEAN CORPUSCULAR HGB CONC 32.7 g/dL (32.0-36.0); MEAN CORPUSCULAR VOLUME 87 fl (80-97); RED CELL DISTRIBUTION WIDTH 19.8 % (11.5-14.0); WHITE BLOOD COUNT 8.2 10^3/uL (4.0-10.5)
[2016-10-13 06:08] LABS: ALANINE AMINOTRANSFERASE 35 U/L (9-52); ALBUMIN 2.7 g/dL (3.5-5.0); ALKALINE PHOSPHATASE 102 U/L (38-126); ANION GAP 12 (5-19); ASPARTATE AMINO TRANSFERASE 21 U/L (14-36); BILIRUBIN,TOTAL 0.7 mg/dL (0.2-1.3); BLOOD UREA NITROGEN 25 mg/dL (7-20); CALCIUM 9.2 mg/dL (8.4-10.2); CARBON DIOXIDE 29 mmol/L (22-30); CHLORIDE 97 mmol/L (98-107); CREATININE RESULT 4.23 mg/dL (0.52-1.25); GLUCOSE 165 mg/dL (75-110); POTASSIUM 3.7 mmol/L (3.6-5.0); TOTAL PROTEIN 6.6 g/dL (6.3-8.2)
[2016-10-13 06:32] LABS: BAND NEUTROPHILS % (MANUAL) 2 % (3-5); BASOPHILS % (MANUAL) 0 % (0-2); EOSINOPHILS % (MANUAL) 3 % (0-6); LYMPHOCYTES % (MANUAL) 13 % (13-45); TOTAL CELLS COUNTED 100
[2016-10-13 06:34] LABS: ANISOCYTOSIS 2+; HYPOCHROMASIA 1+; OVALOCYTES 1+; ROULEAUX 1+; TARGET CELLS 1+
[2016-10-13 06:35] LABS: POLYCHROMASIA SLIGHT
[2016-10-13 06:36] LABS: POIKILOCYTOSIS 1+
[2016-10-13] MEDS ORDERED: VANCOMYCIN HCL INJ 500 MG VIAL ONE (07:31)
[2016-10-13] MEDS ORDERED: THROMBIN (BOVINE) TOPICAL 20000 UNIT VIAL ONE (07:39)
[2016-10-13] MEDS ORDERED: VANCOMYCIN HCL INJ 1000 MG VIAL ONE (07:39)
[2016-10-13] MEDS ORDERED: THROMBIN (BOVINE) TOPICAL 5000 UNIT VIAL ONE (07:39)
[2016-10-13] MEDS ORDERED: KETAMINE HCL INJ 500 MG/10 ML VIAL ONE (07:40)
[2016-10-13] MEDS ORDERED: LIDOCAINE 2% INJ-PF (20 MG/ML) 10 ML AMPUL ONE (07:40)
[2016-10-13] MEDS ORDERED: BUPIVACAINE INJ/PF LIPOSOME/PF 266 MG/20 ML SDV ONE (07:40)
[2016-10-13] MEDS ORDERED: FENTANYL CITRATE INJ/PF 100 MCG/2 ML AMPUL ONE (07:40)
[2016-10-13] MEDS ORDERED: PROPOFOL INJ 200 MG/20 ML VIAL IV ONE (07:41)
[2016-10-13] MEDS ORDERED: DEXMEDETOMIDINE INJ 80 MCG/20 ML VIAL IV ONE (07:41)
[2016-10-13] MEDS ORDERED: MIDAZOLAM 2 MG/2 ML INJ ONE (07:41)
[2016-10-13] MEDS ORDERED: EPHEDRINE SULFATE INJ 50 MG/1 ML AMPULE ONE (07:54)
[2016-10-13] MEDS ORDERED: FUROSEMIDE INJ/PF 40 MG/4 ML SDV ONE (08:44)
--- NOTE | 2016-10-13 09:24 | Operative Report ---
Operative Report DATE OF SURGERY: 10/13/16 PREOPERATIVE DIAGNOSIS: Right femoral neck fracture OPERATION: Right proximal femoral hemiarthroplasty SURGEON: WILLY GABRIEL ANESTHESIA: Spinal TISSUE REMOVED OR ALTERED: Femoral head to pathology ESTIMATED BLOOD LOSS: 100 PROCEDURE: With the patient in a left lateral decubitus position the right lower extremity hindquarter prepped and draped in a sterile fashion. A curvilinear incision made over the greater trochanter a posterior approach the hip was taken. The femur was retracted anteriorly and underlying femoral neck and head are retrieved using a corkscrew. The femoral head was measured and noted to be 45 millimeters. Attention is now turned to the femur. Access is gained to the femoral canal using a box osteotome to the piriformis fossa. The femur is then prepared using a series of tapered broaches until a number, 3 Striker Accolade broach is seated. A trial reduction was now performed using a 45 head and standard neck. Leg length was restored and there is excellent anterior posterior stability. A decision was made to proceed with this construct. All trial implants were removed. The final number 3 femoral stem is impacted into the canal. The standard neck is impacted onto the trunnion. Final unipolar head. 45 millimeters is impacted onto the neck. The hip was reduced. The wound is copiously irrigated with pulsed lavage. A subsequent closed in layers using Vicryl and mehrdad. A sterile dressing is applied. The patient was returned to the recovery room in satisfactory condition.
[2016-10-13] MEDS ORDERED: OXYCODONE HCL IR 5 MG TABLET PO PRN (10:14)
[2016-10-13] MEDS ORDERED: RINGERS SOLUTION,LACTATED 1,000 ML IV PRN (10:20)
[2016-10-13] MEDS ORDERED: TRANEXAMIC ACID INJ/PF 1,000 MG/10 ML SDV IV ONE (11:00)
--- NOTE | 2016-10-13 11:35 | PDOC PROGRESS REPORT ---
Subjective Progress Note for:: 10/13/16 Subjective:: Patient is just came from the right proximal femur arthroplasty by Dr. Neff and is currently doing well alert awake under anesthesia S patient's abdominal events happened so pre-and intraoperative patient's also seen by Dr. lawson before the surgery Physical Exam Vital Signs: Temp Pulse Resp BP Pulse Ox 98.2 F 64 12 126/47 H 98 10/13/16 10:28 10/13/16 10:28 10/13/16 10:28 10/13/16 10:28 10/13/16 10:28 Intake & Output 10/12/16 10/13/16 10/14/16 06:59 06:59 06:59 Intake Total 120 335 450 Output Total 0 230 Balance 120 335 220 Weight 68.3 kg 68.6 kg General appearance: PRESENT: no acute distress Head exam: PRESENT: normocephalic Eye exam: PRESENT: PERRLA Mouth exam: PRESENT: neck supple Respiratory exam: PRESENT: clear to auscultation kennedi Cardiovascular exam: PRESENT: +S1, +S2 GI/Abdominal exam: PRESENT: normal bowel sounds, soft Extremities exam: ABSENT: pedal edema Neurological exam: PRESENT: alert, awake Skin exam: PRESENT: normal color Results Laboratory Results: 10/13/16 05:09 10/13/16 05:09 10/13/16 10/13/16 05:09 05:09 WBC 8.2 RBC 3.60 L Hgb 10.2 L Hct 31.2 L MCV 87 MCH 28.4 MCHC 32.7 RDW 19.8 H Plt Count 239 Seg Neutrophils % Not Reportable Lymphocytes % Not Reportable Monocytes % Not Reportable Eosinophils % Not Reportable Basophils % Not Reportable Absolute Neutrophils Not Reportable Absolute Lymphocytes Not Reportable Absolute Monocytes Not Reportable Absolute Eosinophils Not Reportable Absolute Basophils Not Reportable Sodium 138.0 Potassium 3.7 Chloride 97 L Carbon Dioxide 29 Anion Gap 12 BUN 25 H Creatinine 4.23 H Est GFR ( Amer) 12 L Est GFR (Non-Af Amer) 10 L Glucose 165 H Calcium 9.2 Total Bilirubin 0.7 AST 21 ALT 35 Alkaline Phosphatase 102 Total Protein 6.6 Albumin 2.7 L 10/11/16 10/11/16 10/11/16 04:06 04:06 10:43 Creatine Kinase < 20 L < 20 L Troponin I 0.029 10/11/16 10:43 Creatine Kinase Troponin I 0.023 Impressions: Knee X-Ray 10/10/16 16:27 IMPRESSION: NO RADIOGRAPHIC EVIDENCE OF ACUTE INJURY. Chest X-Ray 10/12/16 00:00 IMPRESSION: IMPROVING PULMONARY EDEMA. Hip/Pelvis X-Ray 10/13/16 09:47 IMPRESSION: SATISFACTORY POSTOPERATIVE RIGHT HIP. Assessment & Plan - Diagnosis (1) Closed right hip fracture Qualifiers: Encounter type: initial encounter Qualified Code(s): S72.001A - Fracture of unspecified part of neck of right femur, initial encounter for closed fracture Is this a current diagnosis for this admission?: YesPlan: postsurgery follow with the ortho (2) End-stage renal disease on hemodialysis Is this a current diagnosis for this admission?: YesPlan: Currently on hemodialysis follow with the nephrology (3) Hypertension Is this a current diagnosis for this admission?: YesPlan: Stable (4) Acute diastolic (congestive) heart failure Is this a current diagnosis for this admission?: YesPlan: Stable we will get the EKG post operatively (5) Anemia in chronic kidney disease Is this a current diagnosis for this admission?: YesPlan: Stable (6) Chronic kidney disease (CKD), stage V Is this a current diagnosis for this admission?: YesPlan: Currently on hemodialysis followed with the nephrology - Time Time Spent with patient: 15-24 minutes Medications reviewed and adjusted accordingly: Yes Anticipated discharge: SNF - Inpatient Certification Medical Necessity: Need for Surgery - Plan Summary Plan Summary: Patient is doing well postoperatively will get the postop EKG and postop chest x -ray and continues to monitor the patient's patient's currently in hemodialysis so patient's probably not a candidate for any IV fluid at this stage
[2016-10-13] MEDS ORDERED: ONDANSETRON HCL INJ/PF 4 MG/2 ML SDV IV PRN (14:01)
--- NOTE | 2016-10-13 15:08 | PROGRESS NOTE E ---
Progress Note NAME: VAISHALI GODOY : 1930 AGE: 86Y DATE: 10/13/2016 ROOM: 433 SUBJECTIVE: Note that the patient had uneventful surgery on her right hip and is back on the floor. She is afebrile. She denies any chest pain or discomfort. There is no PND or orthopnea. The patient is confused but able to answer some questions appropriately. She appears to be in no acute distress. There are no palpitations or syncope. There is no pedal edema. OBJECTIVE: GENERAL: On examination, the patient is well built and well nourished, in no acute distress. VITAL SIGNS: She is afebrile with temperature of 95.2 Fahrenheit, pulse is 64 beats per minute, blood pressure 126/47, respirations 12 per minutes, O2 sats are 98% on room air. HEENT: Head is atraumatic, normocephalic. Eyes: Pupils are equal, round, regular, and reactive to light and accommodation. Extraocular movements are normal. There is no conjunctival pallor. There is no sclerae icterus. ENT is negative. NECK: Supple. There is no JVD. Carotids are equal. There is no bruit. There is no goiter. Trachea is central. LUNGS: Clear to auscultation and percussion. HEART: S1 and S2 are heard. There is no S3 gallop. There is no S4 gallop. There is a systolic murmur in the left sternal border and the apex. There is no rub. ABDOMEN: Soft, nontender. There is no hepatosplenomegaly. Bowel sounds are well heard. EXTREMITIES: Femorals are diminished. The right hip is in a dressing. There is no femoral bruit. Leg pulses are diminished. There is no pedal edema. There is no cyanosis or clubbing. There is no cellulitis. There is no calf tenderness. CENTRAL NERVOUS SYSTEM: The patient is conscious, is oriented x3 but pleasantly confused, moves all 4 extremities, and has no focal deficit. PSYCHIATRIC: The patient does not appear to be agitated at present. DIAGNOSTIC DATA: The patient's white count is 8200, hemoglobin is 7.2, hematocrit is 31.2, platelet count is 239,000. The patient's sodium is 138, potassium is 3.7, chloride is 97, CO2 29, BUN is 25, creatinine is 4.23, GFR is reduced to 12, which is chronic kidney disease stage 5; in fact, the patient is on hemodialysis. Glucose of 152, the patient's calcium is 9.2. Liver function tests are normal, patient's albumin is 2.0, total protein 6.6. IMPRESSION: 1. RIGHT HIP FRACTURE STATUS POST SURGERY. Patient stable. 2. CORONARY ARTERY DISEASE. History of stent in an unknown vessel. We will try to get the records from [place]. This was done in 2010. Patient with no anginal symptoms. 3. HYPERTENSION. 4. DIABETES MELLITUS TYPE 2 INSULIN DEPENDENT. 5. END STAGE RENAL DISEASE ON HEMODIALYSIS. 6. HYPERLIPIDEMIA. 7. DEMENTIA. RECOMMENDATIONS: We will check an EKG in the morning and also get cardiac troponin-I in the morning. At present, continue the patient on Coreg, continue insulin, and her other medications for diabetes mellitus. Continue atorvastatin. Continue her respiratory treatments. Continue aspirin. We will follow with you. Note 30 minutes spent on this patient with more than 50% of the time spent on direct patient care and discussions with the patient and the patient's daughter. I have discussed the whole clinical scenario with the daughter that we are going to get EKGs and troponin-I in the morning to make sure the patient did not have a silent WV postoperatively. Also discussed with Dr. Selin Thrasher, the attending physician. We will follow with you. Note the patient is a full code and daughter is the surrogate healthcare decision maker. Thanking you. DICTATING PHYSICIAN: MARILEE REDMAN M.D. [id number] PRADEEPY#: [id number] ID: [id number] JOB#: [id number] ACCT: [id number] cc: >
[2016-10-13 16:42] LABS: APPEARANCE,URINE TURBID; BILIRUBIN,URINE NEGATIVE (NEGATIVE); GLUCOSE, URINE NEGATIVE (NEGATIVE); KETONES,URINE NEGATIVE (NEGATIVE); LEUKOCYTE ESTERASE,URINE LARGE (NEGATIVE); NITRITE,URINE NEGATIVE (NEGATIVE); PROTEIN,URINE 100 mg/dL (NEGATIVE); URINE SPECIFIC GRAVITY 1.013; UROBILINOGEN,URINE NEGATIVE mg/dL (<2.0)
[2016-10-13] MEDS: DRONABINOL 2.5 MG CAPSULE PO SCH ×2 (17:00→17:09)
[2016-10-13] MEDS: CARVEDILOL 12.5 MG TABLET PO SCH ×2 (17:00→23:04)
[2016-10-13] MEDS: CITALOPRAM HYDROBROMIDE 20 MG TABLET PO SCH (17:00)
[2016-10-13] MEDS: FUROSEMIDE 40 MG TABLET PO SCH ×2 (17:00→17:09)
[2016-10-13] MEDS: DOCUSATE SODIUM 100 MG CAPSULE PO SCH (17:00)
[2016-10-13] MEDS: IBUPROFEN 800 MG in NORMAL SALINE 250 ML IV SCH ×2 (17:07→23:05)
[2016-10-13] MEDS: BUDESONIDE/FORMOTEROL 160-4.5 MCG 60 PUFF/6 GM MDI IH SCH (17:12)
--- NOTE | 2016-10-13 18:40 | CONSULTATION REPORT E ---
Consultation Report NAME: VAISHALI GODOY : 1930 AGE: 86Y DATE: 10/12/2016 433 A TO: MARILEE REDMAN M.D. FROM: ALONDRA PHILLIPS M.D. Requesting Physician HISTORY OF PRESENT ILLNESS: The patient is an 86-year-old female with dementia, hypertension, coronary artery disease, and history of asthma and history of chronic bronchitis and diabetes mellitus type 2, insulin dependent, and also end-stage renal disease, on hemodialysis, who fell about 3 weeks ago and had x-rays done in Dr. Phillips's office which were negative for acute fracture. The patient started having right hip pain and was evaluated in the emergency room yesterday and was found to have a right femoral neck fracture and is admitted for further surgical treatment. The patient denies any loss of consciousness. Although the patient is slightly demented, she is able to answer questions, and this has been corroborated with the patient's sister on the telephone by me. The patient's daughter is Miss Sally Godoy. The patient states that she had no chest pain or discomfort, exertional shortness of breath. There are no palpitations. There is no PND, orthopnea, or leg edema. There is no syncope. The patient states that she accidentally fell. As per the daughter, also she corroborates that the patient did not have syncope. PAST MEDICAL HISTORY: 1. History of hypertension. 2. She has a history of coronary artery disease. As per the daughter, no history of WV, no recent anginal symptoms in some time. 3. She has a past history of congestive heart failure, most likely secondary to LV diastolic dysfunction plus volume overload secondary to end-stage renal disease. 4. She also has a history of hyperlipidemia. 5. She also has a history of asthma and chronic bronchitis/COPD. 6. She also has a history of diabetes mellitus type 2, insulin dependent. 7. The daughter states that in the past, it is not clear whether she had a TIA or CVA, but she does have dementia. 8. She also has arthritis. 9. She also has anemia of chronic kidney disease. 10. She has end-stage renal disease, on hemodialysis. PAST SURGICAL HISTORY: 1. Cardiac catheterization. 2. Cardiac stent in an unknown vessel in 2010. 3. She has also had AV fistula in the right arm for dialysis. ALLERGIES: 1. Ciprofloxacin. 2. Sulfamethoxazole. REVIEW OF SYSTEMS: HEAD: There are no headaches or head injury. EYES: No history of amblyopia, diplopia. The patient has glaucoma and uses drops for that. There is no amaurosis fugax. EARS: There is no tinnitus. There is no vertigo. There are no recurrent ear infections. NOSE: No nosebleeds. No nasal polyps. MOUTH: No altered taste sensation. No ulcers in the mouth. THROAT: No history of odynophagia or dysphagia. No history of recurrent sore throats. SKIN: There are no skin rashes. There is no pruritus. There is no psoriasis. NECK: No enlarged neck lymph nodes. No painful swelling in the neck. No goiter. LUNGS: History of COPD/chronic bronchitis. History of asthma. No history of sleep apnea. No history of pulmonary embolism. No hemoptysis. No pleuritic chest pain. No recent past history of pneumonia. No symptoms of cough or sputum production recently. No symptoms of upper respiratory tract infection. CARDIOVASCULAR: History of coronary artery disease. No history of WV. No anginal symptoms in some time, as per the daughter. Past history of congestive heart failure, none recently. History of hypertension, well controlled as per the daughter. No history of palpitations. No history of PND or orthopnea or leg edema recently. No syncope. She does have dyspnea on exertion. No edema recently, but in the past she has had edema which is a result of dialysis. GASTROINTESTINAL: No history of GI bleed. No history of peptic ulcer disease. No history of hot or cold intolerance. No altered bowel movements. MUSCULOSKELETAL: Complains of generalized osteoarthritis, but no history of peripheral vascular disease. RENAL: History of end-stage renal disease, on dialysis. No hematuria, pyuria, or dysuria. CENTRAL NERVOUS SYSTEM: Questionable past history of TIA versus CVA. The daughter is not sure. There is no obstructive sleep apnea, no history of headaches, seizures, or migraines. ENDOCRINE: History of diabetes mellitus type 2, insulin dependent. No history of thyroid disease. No history of polydipsia or polyuria. No history of heat or cold intolerance. PSYCHIATRIC: No history of anxiety or depression. The patient has dementia, but still able to ambulate and take care of herself. MEDICATIONS: 1. Timolol 1 drop both eyes b.i.d. 2. She is on Tradjenta 1 tablet p.o. daily. 3. Acetaminophen 650 mg p.o. q.6 h. p.r.n. 4. She is on Lipitor 20 mg p.o. at bedtime. 5. She is on Symbicort HFA 160/4.5 mcg inhaler 2 puffs inhalation q.12 h. 6. She is on Coreg 12.5 mg p.o. q.12 h. 7. She is on Celexa 20 mg p.o. daily. 8. She is on hypoglycemic precautions with Glutose 40% gel 15 grams p.o. and 30 grams p.o. p.r.n. respectively hypoglycemia. 9. She is on dextrose 50% at 25 grams IV and 12.5 grams IV p.r.n. hypoglycemia. 10. She is on glucagon 1 mg IM p.r.n. hypoglycemia. 11. She is on Marinol 5 mg p.o. b.i.d. 12. She is on Colace 100 mg p.o. daily. 13. She is on folic acid/vitamin B 1 dose capsule p.o. daily. 14. She is on Lasix 40 mg p.o. b.i.d. 15. She is on heparin 5000 units subcutaneously q.8 h. 16. She is on insulin detemir as per blood sugar. 17. She is also on Accu-Cheks before meals t.i.d. and at bedtime with sliding scale regular insulin coverage. 18. She is on morphine sulfate 2 mg IV q.4 h. 19. She is on tranexamic acid 1000 mg and dextrose 50 mL IV semiconductor manufacturing technician. 20. She is on vancomycin 1000 mg in 250 mL IV semiconductor manufacturing technician for surgery. PHYSICAL EXAMINATION: GENERAL: The patient is well built and well nourished. She seems to be pleasantly confused, but still able to answer questions. VITAL SIGNS: She is afebrile with a temperature of 98.2 degrees Fahrenheit, pulse of 77 beats per minute, blood pressure 163/52, respirations 16 per minute, O2 sats are 98% on room air. HEAD: Atraumatic, normocephalic. EYES: Pupils are equal, round, regular, and reactive to light and accommodation. There is mild conjunctival pallor. There is no scleral icterus. ENT: Ears: Tympanic membranes are intact. External auditory canals are clear. Nose: There is no deviated nasal septum. There is no inflammation of the nasal mucous membranes. Mouth: Mucous membranes of the mouth are moist. Tongue is moist. There are no ulcers. There is no bleeding from the gums. Throat: There is no redness of the oropharynx. There are no exudates. SKIN: There are no skin rashes. There are no petechiae or ecchymosis. There are no skin lesions. NECK: Supple. There is no JVD. Carotids are equal. There is no bruit. There is no . Trachea is central. LUNGS: Diminished air entry. Prolonged expiration. Otherwise, clear to auscultation and percussion. There is hyperresonance. HEART: S1 and S2 heard. There is no S3 gallop. There is no S4 gallop. There is systolic murmur in the left sternal border in the apex. There is no rub. ABDOMEN: Soft. Nontender. There is no hepatosplenomegaly. Bowel sounds are well heard. EXTREMITIES: There is a working AV fistula in the right arm. are diminished. Leg pulses are diminished. There are no femoral bruits. There is no pedal edema. There is no DVT or cellulitis. There is no cyanosis, no clubbing. There is no calf tenderness. CENTRAL NERVOUS SYSTEM: The patient is conscious, awake, confused, but with no focal deficits. PSYCHIATRIC: The patient does not appear to be agitated or depressed. Further psychiatric examination could not be done due to the patient is deemed uncooperative. DIAGNOSTIC DATA: The patient's hip, pelvis x-ray shows right femoral neck fracture with mild varus angulation and impaction. No dislocation. The patient's EKG shows sinus rhythm, left ventricular hypertrophy, right bundle branch block pattern. The patient's EKG done today shows sinus rhythm, right bundle branch block pattern, and left anterior fascicular block. LVH by voltage. The patient's chest x-ray shows improvement in the interstitial edema. No other significant findings. The patient's . Hemoglobin is 10.6, hematocrit is 32.0, platelet count is 242,000. The patient's sodium is 137.7, potassium 3.6, chloride is 97, cO2 is 30. The patient's BUN is 17, creatinine 0.09. GFR is 17 mL. Glucose is 156. Calcium is 9.2. Liver function tests are normal. Her total protein is 6.7, albumin is 2.7. Her cardiac enzymes have been negative x3. IMPRESSION: 1. Fracture, right hip, for surgery. 2. Hypertension, still not very well controlled. 3. Diabetes mellitus type 2, insulin dependent. 4. Coronary artery disease. No anginal symptoms. No history of myocardial infarction. History of stent, unknown vessel, in 2010. 5. End-stage renal disease, on hemodialysis. 6. Hyperlipidemia. 7. Dementia. 8. Chronic obstructive pulmonary disease/chronic bronchitis, at present stable. 9. Preoperative cardiac risk assessment. RECOMMENDATIONS: Continue present treatment. The patient is asymptomatic. Note that the patient had an echocardiography done in December 2015 and this shows that this is a difficult study with many images being suboptimal. The left ventricular ejection fraction is normal. Left ventricular diastolic function could not be adequately assessed. Regional wall motion abnormalities could not be excluded due to limited visualization. There is borderline calcific left ventricular hypertrophy. The left ventricle is grossly normal. The right ventricular systolic function is normal. The right ventricle is mildly dilated. The left atrium is mildly dilated. Anterior atrial septum not well visualized, hence cannot comment on atrial septal defect/patent foramen ovale present. The atrial septum is aneurysmal. Borderline right atrial enlargement. There is mild amount of mitral regurgitation. There is no mitral valve stenosis. There is no aortic valve stenosis. There is mild amount of aortic regurgitation. There is trace physiologic amount of tricuspid regurgitation. There is mild pulmonary hypertension. Right ventricular systolic pressure is elevated at 30 to 40 mmHg. There is no pericardial effusion. Continue current medications. The patient, in view of her age and comorbid conditions, will be [id number] (acceptable risk for her age) risk for this surgery. Postoperatively, monitor the patient on telemetry and get serial EKGs and enzymes. This has been discussed with the patient's daughter, Miss Sally Godoy. The patient is a full code. Her daughter is the surrogate healthcare decision maker. Note, most of the review of systems and history of present illness and past illness has been obtained from the patient's daughter and also from the patient, but the daughter corroborates with the patient's history. Note, 45 minutes spent on this patient with more than 50% of the time spent in direct patient care and review of the patient's medications, review of her old charts, and also discussions with the hospitalist. Discussed with anesthesia that this patient will be an acceptable ([id number] cardiac risk for her age and comorbid conditions) risk for surgery. We will follow with you. DICTATING PHYSICIAN: MARILEE REDMAN M.D. [id number] PHY#: [id number] ID: [id number] JOB#: [id number] ACCT: [id number] cc:MARILEE REDMAN M.D. >
--- NOTE | 2016-10-13 21:15 | EKG REPORT ---
SEVERITY:- ABNORMAL ECG - SINUS RHYTHM RIGHT BUNDLE BRANCH BLOCK LEFT VENTRICULAR HYPERTROPHY : Confirmed by: Vincenzo Vasquez MD 13-Oct-2016 21:14:44
[2016-10-13] MEDS: ATORVASTATIN CALCIUM 20 MG TABLET PO SCH (23:05)
[2016-10-13] MEDS: INSULIN DETEMIR 100 UNIT/ML 3 ML PEN SUBCUT SCH (23:06)
[2016-10-14] MEDS: HEPARIN SOD (PORCINE) 5,000 UNIT/ML 1 ML SYRINGE SUBCUT SCH ×3 (06:21→21:32)
[2016-10-14] MEDS: ACETAMINOPHEN 325 MG TABLET PO PRN ×4 (06:28→23:57)
--- NOTE | 2016-10-14 06:44 | PDOC PROGRESS REPORT ---
Subjective Progress Note for:: 10/14/16 Subjective:: Patient without complaints today. Physical Exam Vital Signs: Temp Pulse Resp BP Pulse Ox 37.3 C 74 20 125/49 L 96 10/14/16 04:00 10/14/16 04:00 10/14/16 04:00 10/14/16 04:00 10/14/16 04:00 Intake & Output 10/12/16 10/13/16 10/14/16 06:59 06:59 06:59 Intake Total 246 086 4237 Output Total 0 1500 Balance 120 335 719 Weight 68.3 kg 68.6 kg General appearance: PRESENT: no acute distress Head exam: PRESENT: normocephalic Respiratory exam: PRESENT: unlabored Cardiovascular exam: PRESENT: RRR Pulses: PRESENT: +1 pedal pulses bilateral GI/Abdominal exam: PRESENT: soft Extremities exam: PRESENT: other - Right hip dressing clean dry and intact. Leg lengths are equal. Neurovascular examinations intact. Results Laboratory Results: 10/13/16 05:09 10/13/16 05:09 10/13/16 15:41 Urine Color DIPAK Urine Appearance TURBID Urine pH 6.0 Ur Specific [place] 1.013 Urine Protein 100 H Urine Glucose (UA) NEGATIVE Urine Ketones NEGATIVE Urine Blood LARGE H Urine Nitrite NEGATIVE Ur Leukocyte Esterase LARGE H Urine WBC (Auto) >182 Urine RBC (Auto) 143 10/11/16 10/11/16 10/11/16 04:06 04:06 10:43 Creatine Kinase < 20 L < 20 L Troponin I 0.029 10/11/16 10:43 Creatine Kinase Troponin I 0.023 Impressions: Knee X-Ray 10/10/16 16:27 IMPRESSION: NO RADIOGRAPHIC EVIDENCE OF ACUTE INJURY. Chest X-Ray 10/12/16 00:00 IMPRESSION: IMPROVING PULMONARY EDEMA. Hip/Pelvis X-Ray 10/13/16 09:47 IMPRESSION: SATISFACTORY POSTOPERATIVE RIGHT HIP. Status: Imported from PACS Assessment & Plan - Diagnosis (1) Closed right hip fracture Qualifiers: Encounter type: subsequent encounter Qualified Code(s): S72.001A - Fracture of unspecified part of neck of right femur, initial encounter for closed fracture Is this a current diagnosis for this admission?: YesPlan: Patient postop day 1 from right proximal femoral hemiarthroplasty. Postoperative course is been uneventful. Plan for mobilization with physical therapy and weightbearing as tolerated basis. (2) Urinary tract infection Qualifiers: Hematuria presence: with hematuria Is this a current diagnosis for this admission?: YesPlan: Patient allergic to Cipro and sulfa. Started on Augmentin. - Time Time Spent with patient: 15-24 minutes Anticipated discharge: SNF Within: within 48 hours
[2016-10-14 07:10] LABS: HEMOGLOBIN 8.7 g/dL (12.0-15.5); HGB HCT DIFFERENCE 0.1; MEAN CORPUSCULAR HEMOGLOBIN 28.5 pg (27.0-33.4); MEAN CORPUSCULAR HGB CONC 33.5 g/dL (32.0-36.0); MEAN CORPUSCULAR VOLUME 85 fl (80-97); RED BLOOD COUNT 3.05 10^6/uL (3.72-5.28); RED CELL DISTRIBUTION WIDTH 18.8 % (11.5-14.0); WHITE BLOOD COUNT 5.9 10^3/uL (4.0-10.5)
[2016-10-14 07:12] LABS: ANION GAP 11 (5-19); BLOOD UREA NITROGEN 34 mg/dL (7-20); CARBON DIOXIDE 27 mmol/L (22-30); CHLORIDE 97 mmol/L (98-107); CREATININE RESULT 4.92 mg/dL (0.52-1.25); GLUCOSE 91 mg/dL (75-110); POTASSIUM 3.7 mmol/L (3.6-5.0)
[2016-10-14 07:20] LABS: CALCIUM 8.2 mg/dL (8.4-10.2)
--- NOTE | 2016-10-14 09:13 | EKG REPORT ---
SEVERITY:- ABNORMAL ECG - SINUS RHYTHM RIGHT BUNDLE BRANCH BLOCK LEFT VENTRICULAR HYPERTROPHY : Confirmed by: Laurence Chin 14-Oct-2016 09:12:36
--- NOTE | 2016-10-14 10:01 | PDOC PROGRESS REPORT ---
Subjective Progress Note for:: 10/14/16 Subjective:: Patient is doing well currently on hemodialysis. Any chest pain no shortness of the breath patient's urine is positive start the Rocephin patient seen by Dr. Neff for the hip surgery and stable patient also seen by Dr. Irving postoperatively and doing well Physical Exam Vital Signs: Temp Pulse Resp BP Pulse Ox 99.2 F 74 20 125/49 L 96 10/14/16 04:00 10/14/16 04:00 10/14/16 04:00 10/14/16 04:00 10/14/16 04:00 Intake & Output 10/13/16 10/14/16 10/15/16 06:59 06:59 06:59 Intake Total 335 2219 Output Total 1600 Balance 335 619 Weight 68.6 kg 74.7 kg General appearance: PRESENT: no acute distress Head exam: PRESENT: normocephalic Eye exam: PRESENT: PERRLA Mouth exam: PRESENT: neck supple Respiratory exam: PRESENT: clear to auscultation kennedi Cardiovascular exam: PRESENT: +S1, +S2 GI/Abdominal exam: PRESENT: normal bowel sounds, soft. ABSENT: tenderness Extremities exam: ABSENT: pedal edema Neurological exam: PRESENT: alert, awake, oriented to person Psychiatric exam: PRESENT: normal mood Skin exam: PRESENT: normal color Results Laboratory Results: 10/14/16 06:48 10/14/16 06:48 10/13/16 10/14/16 10/14/16 15:41 06:48 06:48 WBC 5.9 RBC 3.05 L Hgb 8.7 L Hct 26.0 L MCV 85 MCH 28.5 MCHC 33.5 RDW 18.8 H Plt Count 194 Sodium 135.0 L Potassium 3.7 Chloride 97 L Carbon Dioxide 27 Anion Gap 11 BUN 34 H Creatinine 4.92 H Est GFR ( Amer) 10 L Est GFR (Non-Af Amer) 8 L Glucose 91 Calcium 8.2 L Urine Color DIPAK Urine Appearance TURBID Urine pH 6.0 Ur Specific [place] 1.013 Urine Protein 100 H Urine Glucose (UA) NEGATIVE Urine Ketones NEGATIVE Urine Blood LARGE H Urine Nitrite NEGATIVE Ur Leukocyte Esterase LARGE H Urine WBC (Auto) >182 Urine RBC (Auto) 143 10/11/16 18:41 Nasophary ([facility] Only) MRSA Surveillance Culture - Final MRSA RECOVERED 10/11/16 10/11/16 10/11/16 04:06 04:06 10:43 Creatine Kinase < 20 L < 20 L Troponin I 0.029 10/11/16 10/14/16 10:43 06:48 Creatine Kinase Troponin I 0.023 0.035 Impressions: Knee X-Ray 10/10/16 16:27 IMPRESSION: NO RADIOGRAPHIC EVIDENCE OF ACUTE INJURY. Chest X-Ray 10/12/16 00:00 IMPRESSION: IMPROVING PULMONARY EDEMA. Hip/Pelvis X-Ray 10/13/16 09:47 IMPRESSION: SATISFACTORY POSTOPERATIVE RIGHT HIP. Assessment & Plan - Diagnosis (1) Closed right hip fracture Qualifiers: Encounter type: subsequent encounter Qualified Code(s): S72.001A - Fracture of unspecified part of neck of right femur, initial encounter for closed fracture Is this a current diagnosis for this admission?: YesPlan: Postop day [address] Neff (2) End-stage renal disease on hemodialysis Is this a current diagnosis for this admission?: YesPlan: on hemodialysis today (3) Hypertension Is this a current diagnosis for this admission?: YesPlan: Stable (4) Acute diastolic (congestive) heart failure Is this a current diagnosis for this admission?: YesPlan: Stable we will get the EKG post operatively (5) Anemia in chronic kidney disease Is this a current diagnosis for this admission?: YesPlan: Stable (6) Chronic kidney disease (CKD), stage V Is this a current diagnosis for this admission?: Yes (7) Urinary tract infection Qualifiers: Urinary tract infection type: site unspecified Is this a current diagnosis for this admission?: YesPlan: Start on IV Rocephin and await for the culture - Time Time Spent with patient: 15-24 minutes Medications reviewed and adjusted accordingly: Yes Anticipated discharge: SNF Within: Other - Inpatient Certification Medical Necessity: Need for IV Antibiotics - Plan Summary Plan Summary: Follow with the also and follow with the Dr. Irving and started on IV antibiotic and await for the urine culture
[2016-10-14] MEDS ORDERED: EPOETIN ALFA INJ 20000 UNIT/1 ML VIAL (RENAL) SUBCUT ONE (10:58)
--- NOTE | 2016-10-14 11:08 | PDOC PROGRESS REPORT ---
Subjective Progress Note for:: 10/14/16 Subjective:: I saw the patient on dialysis this morning. She was doing well and does not have any other complaints. She underwent right hip hemiarthroplasty yesterday care of Dr. Neff and it was uneventful. Patient denies any chest pains nor shortness of breath. Patient tolerated dialysis well without any problems or complaints. Physical Exam Vital Signs: Temp Pulse Resp BP Pulse Ox 99.2 F 74 20 125/49 L 96 10/14/16 04:00 10/14/16 04:00 10/14/16 04:00 10/14/16 04:00 10/14/16 04:00 Intake & Output 10/13/16 10/14/16 10/15/16 06:59 06:59 06:59 Intake Total 335 2219 Output Total 1600 Balance 335 619 Weight 68.6 kg 74.7 kg Vital signs during dialysis well and was seeing her: Blood pressure of 146/60, heart rate of 75, blood flow rate of 350 more per minute, dialysate flow rate of 600 mL per minute, ultrafiltration was about 2 L. Exam: General appearance: [PRESENT: no acute distress, cooperative, well-developed, well-nourished] Head exam: [PRESENT: atraumatic, normocephalic] Eye exam: [PRESENT: conjunctiva pale, PERRLA. ABSENT: scleral icterus] Neck exam: [ABSENT: JVD] Respiratory exam: [PRESENT: Diminished breath sounds. ABSENT: crackles, rales, rhonchi, unlabored, wheezes] Cardiovascular exam: [PRESENT: Regular rate rhythm -+S1, +S2. ABSENT: diastolic murmur, systolic murmur] GI/Abdominal exam: [PRESENT: normal bowel sounds, soft. ABSENT: guarding, mass , tenderness] Extremities exam: [ABSENT: No edema] Neurological exam: [PRESENT: alert, awake, oriented to person, place and time.] Skin exam: [PRESENT: dry, warm,] Results Laboratory Results: 10/14/16 06:48 10/14/16 06:48 10/13/16 10/14/16 10/14/16 15:41 06:48 06:48 WBC 5.9 RBC 3.05 L Hgb 8.7 L Hct 26.0 L MCV 85 MCH 28.5 MCHC 33.5 RDW 18.8 H Plt Count 194 Sodium 135.0 L Potassium 3.7 Chloride 97 L Carbon Dioxide 27 Anion Gap 11 BUN 34 H Creatinine 4.92 H Est GFR ( Amer) 10 L Est GFR (Non-Af Amer) 8 L Glucose 91 Calcium 8.2 L Urine Color DIPAK Urine Appearance TURBID Urine pH 6.0 Ur Specific [place] 1.013 Urine Protein 100 H Urine Glucose (UA) NEGATIVE Urine Ketones NEGATIVE Urine Blood LARGE H Urine Nitrite NEGATIVE Ur Leukocyte Esterase LARGE H Urine WBC (Auto) >182 Urine RBC (Auto) 143 10/11/16 18:41 Nasophary (Mrsa Only) MRSA Surveillance Culture - Final MRSA RECOVERED 10/11/16 10/11/16 10/11/16 04:06 04:06 10:43 Creatine Kinase < 20 L < 20 L Troponin I 0.029 10/11/16 10/14/16 10:43 06:48 Creatine Kinase Troponin I 0.023 0.035 Impressions: Knee X-Ray 10/10/16 16:27 IMPRESSION: NO RADIOGRAPHIC EVIDENCE OF ACUTE INJURY. Chest X-Ray 10/12/16 00:00 IMPRESSION: IMPROVING PULMONARY EDEMA. Hip/Pelvis X-Ray 10/13/16 09:47 IMPRESSION: SATISFACTORY POSTOPERATIVE RIGHT HIP. Assessment & Plan - Diagnosis (1) End-stage renal disease on hemodialysis Is this a current diagnosis for this admission?: YesPlan: We did dialysis today for 3 hours, using the patient's AV fistula, with 3 potassium bath, blood flow rate of 350 mL per minute, dialysate flow rate of 600 mL per minute, ultrafiltration as tolerated, no heparin and Procrit 20,000 units subcutaneously during dialysis. I will discontinue the furosemide since she does not make any much urine. We'll continue hemodialysis support while here in the hospital. (2) Hypertension Is this a current diagnosis for this admission?: YesPlan: Continue current blood pressure medications. Well controlled. (3) Closed right hip fracture Qualifiers: Encounter type: subsequent encounter Qualified Code(s): S72.001A - Fracture of unspecified part of neck of right femur, initial encounter for closed fracture Is this a current diagnosis for this admission?: YesPlan: Status post right hip hemiarthroplasty 10/13/[address] Neff. (4) Urinary tract infection Qualifiers: Hematuria presence: with hematuria Is this a current diagnosis for this admission?: YesPlan: On IV antibiotics pending culture.
[2016-10-14] MEDS ORDERED: CEFTRIAXONE 1 GM/D5W RTU 1 GM/50 ML RTUPB IV ONE (11:15)
[2016-10-14] MEDS: SITAGLIPTIN PHOSPHATE 25 MG TABLET PO SCH (11:58)
[2016-10-14] MEDS: CARVEDILOL 12.5 MG TABLET PO SCH ×2 (11:58→21:32)
[2016-10-14] MEDS: FOLIC ACID/VITAMIN B COMP W-C CAPSULE PO SCH (11:59)
[2016-10-14] MEDS: DOCUSATE SODIUM 100 MG CAPSULE PO SCH (11:59)
[2016-10-14] MEDS: DRONABINOL 2.5 MG CAPSULE PO SCH ×2 (11:59→17:37)
[2016-10-14] MEDS: BUDESONIDE/FORMOTEROL 160-4.5 MCG 60 PUFF/6 GM MDI IH SCH ×2 (12:00→17:37)
[2016-10-14] MEDS: CITALOPRAM HYDROBROMIDE 20 MG TABLET PO SCH (12:02)
[2016-10-14] MEDS: AMOXICILLIN TR/POT CLAVULANATE 500-125 MG TAB PO SCH ×2 (13:47→21:32)
--- NOTE | 2016-10-14 18:38 | PROGRESS NOTE E ---
Progress Note NAME: VAISHALI GODOY : 1930 AGE: 86Y DATE: 10/14/2016 ROOM: 433 SUBJECTIVE: The patient had dialysis this morning. She denies any chest pain or discomfort. There is no PND or orthopnea. There are no palpitations. There are no TIA or CVA symptoms. The patient appears to be comfortable. There is no pedal edema. She tolerated dialysis well. OBJECTIVE: GENERAL: The patient is well built and well nourished, in no acute distress. VITAL SIGNS: She is afebrile with a temperature of 98.4 degrees Fahrenheit. Pulse of 82 beats per minute. Blood pressure 107/52. Respirations 16 per minute. O2 sats are 98% on room air. HEAD: Atraumatic, normocephalic. EYES: Pupils are equal, round, regular, reactive to light and accommodation. Extraocular movements are normal. There is no conjunctival pallor. There is no scleral icterus. ENT: Negative. NECK: Supple. There is no JVD. Carotids: There are no bruits. There is no goiter. Trachea is central. LUNGS: Clear to auscultation and percussion. CARDIOVASCULAR: S1, S2 heard. There is no S3 gallop. There is no S4 gallop. There is systolic murmur, left sternal border in the apex. There is no rub. ABDOMEN: Soft, nontender. There is no hepatosplenomegaly. Bowel sounds are well heard. EXTREMITIES: Pulses are diminished. The right hip dressing is clean and dry. There are no femoral bruits. Leg pulses diminished. There is no pedal edema. There is no cyanosis or clubbing. There is no cellulitis. There is no calf tenderness. CENTRAL NERVOUS SYSTEM: The patient is conscious, awake, is pleasantly confused, but moves all 4 extremities, and there is no focal deficit. PSYCHIATRIC: The patient does not appear to be agitated or depressed. LABORATORY DATA: The patient's EKG shows sinus rhythm with a right bundle branch block pattern. Left ventricular hypertrophy. No changes. The patient's troponin I is negative/indeterminate at 0.035. The patient's chest x-ray: Patchy opacity, in the left base particularly. No change. Stable cardiomegaly *------*. No evidence of congestive heart failure. The patient's white count is 5900, hemoglobin is 8.7, hematocrit is 26, platelet count is 194,000. The patient's sodium is 135, potassium is 3.7, chloride is 97, cO2 is 27, the patient's BUN is 34, creatinine is 4.92, GFR is reduced at 10. The patient's glucose is 91. Calcium is 8.2. ASSESSMENT: 1. STATUS POST RIGHT HIP FRACTURE. The patient is stable. 2. CORONARY ARTERY DISEASE. History of stent in unknown vessel. We will try to get records from *------*. This was done in 2010. The patient with no anginal symptoms. No acute changes postoperatively on the EKG. Negative/indeterminate cardiac enzymes/troponin I levels. 3. HYPERTENSION. 4. DIABETES MELLITUS TYPE 2, INSULIN DEPENDENT. 5. END-STAGE RENAL DISEASE, on hemodialysis. 6. HYPERLIPIDEMIA. 7. DEMENTIA. RECOMMENDATIONS: 1. Repeat an EKG in the morning along with troponin I. 2. Continue current medications. Note, 30 minutes spent on this patient, more than 50% of time spent in direct patient care and also discussions with Dr. Selin Thrasher, the attending physician on record. Discussed with the patient. We will follow with you. DICTATING PHYSICIAN: MARILEE REDMAN M.D. [id number] KRISS#: [id number] ID: [id number] JOB#: [id number] ACCT: [id number] cc: >
[2016-10-14] MEDS: INSULIN DETEMIR 100 UNIT/ML 3 ML PEN SUBCUT SCH (21:32)
[2016-10-14] MEDS: ATORVASTATIN CALCIUM 20 MG TABLET PO SCH (21:32)
[2016-10-15] MEDS: AMOXICILLIN TR/POT CLAVULANATE 500-125 MG TAB PO SCH ×3 (05:37→21:51)
[2016-10-15] MEDS: HEPARIN SOD (PORCINE) 5,000 UNIT/ML 1 ML SYRINGE SUBCUT SCH ×3 (05:37→21:51)
[2016-10-15] MEDS: ACETAMINOPHEN 325 MG TABLET PO PRN ×3 (05:37→17:23)
[2016-10-15 06:35] LABS: HEMATOCRIT 23.4 % (36.0-47.0); HGB HCT DIFFERENCE 0.3; MEAN CORPUSCULAR HEMOGLOBIN 28.5 pg (27.0-33.4); MEAN CORPUSCULAR HGB CONC 33.8 g/dL (32.0-36.0); MEAN CORPUSCULAR VOLUME 84 fl (80-97); RED BLOOD COUNT 2.78 10^6/uL (3.72-5.28); RED CELL DISTRIBUTION WIDTH 18.5 % (11.5-14.0); WHITE BLOOD COUNT 9.1 10^3/uL (4.0-10.5)
[2016-10-15 06:45] LABS: HEMOGLOBIN 7.9 g/dL (12.0-15.5)
[2016-10-15 06:52] LABS: ANION GAP 9 (5-19); BLOOD UREA NITROGEN 22 mg/dL (7-20); CALCIUM 7.9 mg/dL (8.4-10.2); CARBON DIOXIDE 30 mmol/L (22-30); CHLORIDE 96 mmol/L (98-107); CREATININE RESULT 3.63 mg/dL (0.52-1.25); GLUCOSE 84 mg/dL (75-110); POTASSIUM 3.7 mmol/L (3.6-5.0); SODIUM 135.2 mmol/L (137-145)
--- NOTE | 2016-10-15 07:01 | PDOC PROGRESS REPORT ---
Subjective Progress Note for:: 10/15/16 Subjective:: Patient not verbally responsive Physical Exam Vital Signs: Temp Pulse Resp BP Pulse Ox 37.2 C 77 18 118/40 L 95 10/15/16 00:00 10/15/16 00:00 10/15/16 00:00 10/15/16 00:00 10/15/16 00:00 Intake & Output 10/14/16 10/15/16 10/16/16 06:59 06:59 06:59 Intake Total 2219 1310 Output Total 1600 Balance 619 1310 Weight 74.7 kg 75.3 kg General appearance: PRESENT: no acute distress Respiratory exam: PRESENT: unlabored Pulses: PRESENT: +1 pedal pulses bilateral Vascular exam: PRESENT: normal capillary refill Extremities exam: PRESENT: other - Right hip ochoa dressing intact. Leg lengths are equal. Neurovascular examinations intact. Results Laboratory Results: 10/15/16 06:06 10/15/16 06:06 10/14/16 10/14/16 10/15/16 06:48 06:48 06:06 WBC 5.9 9.1 RBC 3.05 L 2.78 L Hgb 8.7 L 7.9 L Hct 26.0 L 23.4 L MCV 85 84 MCH 28.5 28.5 MCHC 33.5 33.8 RDW 18.8 H 18.5 H Plt Count 194 173 Sodium 135.0 L Potassium 3.7 Chloride 97 L Carbon Dioxide 27 Anion Gap 11 BUN 34 H Creatinine 4.92 H Est GFR ( Amer) 10 L Est GFR (Non-Af Amer) 8 L Glucose 91 Calcium 8.2 L 10/15/16 06:06 WBC RBC Hgb Hct MCV MCH MCHC RDW Plt Count Sodium 135.2 L Potassium 3.7 Chloride 96 L Carbon Dioxide 30 Anion Gap 9 BUN 22 H Creatinine 3.63 H Est GFR ( Amer) 14 L Est GFR (Non-Af Amer) 12 L Glucose 84 Calcium 7.9 L 10/11/16 18:41 Nasophary (Mrsa Only) MRSA Surveillance Culture - Final MRSA RECOVERED 10/11/16 10/11/16 10/11/16 04:06 04:06 10:43 Creatine Kinase < 20 L < 20 L Troponin I 0.029 10/11/16 10/14/16 10:43 06:48 Creatine Kinase Troponin I 0.023 0.035 Impressions: Knee X-Ray 10/10/16 16:27 IMPRESSION: NO RADIOGRAPHIC EVIDENCE OF ACUTE INJURY. Hip/Pelvis X-Ray 10/13/16 09:47 IMPRESSION: SATISFACTORY POSTOPERATIVE RIGHT HIP. Chest X-Ray 10/14/16 08:00 IMPRESSION: Stable chest. Findings as above. Assessment & Plan - Diagnosis (1) Closed right hip fracture Qualifiers: Encounter type: subsequent encounter Qualified Code(s): S72.001A - Fracture of unspecified part of neck of right femur, initial encounter for closed fracture Is this a current diagnosis for this admission?: YesPlan: Patient postop day 2. Right proximal femoral hemiarthroplasty. Urinary tract infections being pressed with oral antibiotics. Hematocrit is decreased to 23.4 %. Anticipate the need for transfusion? During dialysis (2) Urinary tract infection Qualifiers: Hematuria presence: with hematuria Is this a current diagnosis for this admission?: Yes - Time Time Spent with patient: 15-24 minutes Anticipated discharge: SNF Within: within 48 hours
[2016-10-15] MEDS: SITAGLIPTIN PHOSPHATE 25 MG TABLET PO SCH (09:37)
[2016-10-15] MEDS: DOCUSATE SODIUM 100 MG CAPSULE PO SCH (09:37)
[2016-10-15] MEDS: BUDESONIDE/FORMOTEROL 160-4.5 MCG 60 PUFF/6 GM MDI IH SCH ×2 (09:37→17:24)
[2016-10-15] MEDS: CEFTRIAXONE 1 GM/D5W RTU 1 GM/50 ML RTUPB IV SCH (09:37)
[2016-10-15] MEDS: CITALOPRAM HYDROBROMIDE 20 MG TABLET PO SCH (09:37)
[2016-10-15] MEDS: DRONABINOL 2.5 MG CAPSULE PO SCH ×2 (09:37→17:23)
[2016-10-15] MEDS: CARVEDILOL 12.5 MG TABLET PO SCH ×2 (09:38→21:51)
[2016-10-15] MEDS: FOLIC ACID/VITAMIN B COMP W-C CAPSULE PO SCH (09:38)
--- NOTE | 2016-10-15 10:11 | EKG REPORT ---
SEVERITY:- ABNORMAL ECG - SINUS RHYTHM RIGHT BUNDLE BRANCH BLOCK LEFT VENTRICULAR HYPERTROPHY : Confirmed by: Laurence Chin 15-Oct-2016 10:10:21
[2016-10-15] MEDS ORDERED: NORMAL SALINE 250 ML IV PRN (16:12)
--- NOTE | 2016-10-15 18:51 | PDOC PROGRESS REPORT ---
Subjective Progress Note for:: 10/15/16 Subjective:: Patient is seen by the bedside. No new complaint today Physical Exam Vital Signs: Temp Pulse Resp BP Pulse Ox 98.5 F 83 20 117/42 L 94 10/15/16 15:43 10/15/16 15:43 10/15/16 12:50 10/15/16 15:43 10/15/16 15:43 Intake & Output 10/14/16 10/15/16 10/16/16 06:59 06:59 06:59 Intake Total 2219 1310 410 Output Total 1600 Balance 619 1310 410 Weight 74.7 kg 75.3 kg General appearance: PRESENT: no acute distress Eye exam: PRESENT: PERRLA Cardiovascular exam: PRESENT: +S1, +S2 Neurological exam: PRESENT: alert Results Laboratory Results: 10/15/16 06:06 10/15/16 06:06 10/15/16 10/15/16 10/15/16 06:06 06:06 16:50 WBC 9.1 RBC 2.78 L Hgb 7.9 L Hct 23.4 L MCV 84 MCH 28.5 MCHC 33.8 RDW 18.5 H Plt Count 173 Sodium 135.2 L Potassium 3.7 Chloride 96 L Carbon Dioxide 30 Anion Gap 9 BUN 22 H Creatinine 3.63 H Est GFR ( Amer) 14 L Est GFR (Non-Af Amer) 12 L Glucose 84 Calcium 7.9 L Blood Type O POSITIVE Antibody Screen NEGATIVE 10/13/16 15:41 Garcia Catheter Urine Culture - Final C.albicans/C.dubliniensis 10/11/16 10/11/16 10/11/16 04:06 04:06 10:43 Creatine Kinase < 20 L < 20 L Troponin I 0.029 10/11/16 10/14/16 10/15/16 10:43 06:48 06:06 Creatine Kinase Troponin I 0.023 0.035 0.021 Impressions: Knee X-Ray 10/10/16 16:27 IMPRESSION: NO RADIOGRAPHIC EVIDENCE OF ACUTE INJURY. Hip/Pelvis X-Ray 10/13/16 09:47 IMPRESSION: SATISFACTORY POSTOPERATIVE RIGHT HIP. Chest X-Ray 10/14/16 08:00 IMPRESSION: Stable chest. Findings as above. Assessment & Plan - Diagnosis (1) Closed right hip fracture Qualifiers: Encounter type: subsequent encounter Qualified Code(s): S72.001A - Fracture of unspecified part of neck of right femur, initial encounter for closed fracture Is this a current diagnosis for this admission?: Yes (2) End-stage renal disease on hemodialysis Is this a current diagnosis for this admission?: Yes
--- NOTE | 2016-10-15 18:58 | PROGRESS NOTE E ---
Progress Note NAME: VAISHALI GODOY : 1930 AGE: 86Y DATE: 10/15/2016 ROOM: 433 SUBJECTIVE: The patient appears to be comfortable. She denies any chest pain or discomfort. The patient is confused. There is no shortness of breath. She does not appear to be short of breath. There is no arrhythmia. There are no symptoms of TIA or CVA. There is no PND, orthopnea, or leg edema. The pain control at the operative site is good. Note that the patient's hemoglobin has dropped to 7.8. The patient in view of her existing coronary artery disease and history of stent will benefit from 2 units of packed RBCs to get the hemoglobin up and above 10. OBJECTIVE: GENERAL: The patient at present is well built and well nourished, in no acute distress. VITAL SIGNS: She is afebrile with a temperature of 98.2 degrees Fahrenheit. Pulse of 82 beats per minute. Blood pressure 115/41. Respirations are 20 per minute. O2 sats are 96% on room air. HEAD: Atraumatic, normocephalic. EYES: Pupils are equal, round, regular, reactive to light and accommodation. Extraocular movements are normal. There is conjunctival pallor present. There is no scleral icterus. ENT: Negative. NECK: Supple. There is no JVD. Carotids are equal, there is no bruits. There is no goiter. There is no lymphadenopathy. Trachea is central. LUNGS: Clear to auscultation and percussion. CARDIOVASCULAR: S1, S2 heard. There is no S3 gallop. There is no S4 gallop. There is systolic murmur in the left sternal border and the apex. There is no rub. ABDOMEN: Soft, nontender. There is no hepatosplenomegaly. Bowel sounds are well heard. CENTRAL NERVOUS SYSTEM: The patient is conscious, confused, but with no focal deficits. PSYCHIATRIC: The patient does not appear to be agitated or depressed. Note that the patient has dementia. DIAGNOSTIC DATA: The patient's EKG shows sinus rhythm, right bundle branch block pattern, and left ventricular hypertrophy. LABORATORY DATA: The patient's white count is 9100, hemoglobin is 7.9, hematocrit is 23.4, and platelet count is 173,000. The patient's sodium is 135.2, potassium is 3.7, chloride 96, CO2 is 30. The patient's BUN is 22, creatinine 3.63, GFR is reduced at 14 mL. Her troponin I is negative at 0.021. Her calcium is 7.9. IMPRESSION: 1. POSTOPERATIVE ANEMIA, MOST LIKELY DUE TO BLOOD LOSS. Would recommend in view of the patient's underlying coronary artery disease would transfuse the patient 2 units of packed RBCs to get the hemoglobin 10 or above. 2. STATUS POST RIGHT HIP FRACTURE, STABLE. 3. CORONARY ARTERY DISEASE. History of stent in unknown vessel. The patient with no symptoms of angina. Continue current medication. At present no evidence of postoperative or perioperative myocardial infarction and no anginal symptoms. 4. HYPERTENSION. 5. DIABETES MELLITUS TYPE 2, INSULIN DEPENDENT. 6. END-STAGE RENAL DISEASE. On hemodialysis. 7. HYPERLIPIDEMIA. 8. DEMENTIA. RECOMMENDATIONS: 1. As mentioned before, I would recommend that the patient continue her current medication. 2. Would recommend transfusion 2 units of packed RBCs to get the hemoglobin 10 or above. TIME SPENT: Note, 30 minutes spent on this patient with more than 50% of time spent in direct patient care and also discussions with other caregivers in this case. We will follow with you. DICTATING PHYSICIAN: MARILEE REDMAN M.D. [id number] KRISS#: [id number] ID: [id number] JOB#: [id number] ACCT: [id number] cc: >
[2016-10-15] MEDS: ATORVASTATIN CALCIUM 20 MG TABLET PO SCH (21:51)
[2016-10-15] MEDS: INSULIN DETEMIR 100 UNIT/ML 3 ML PEN SUBCUT SCH (21:52)
[2016-10-16] MEDS: ACETAMINOPHEN 325 MG TABLET PO PRN ×5 (00:17→23:27)
[2016-10-16] MEDS ORDERED: EPOETIN ALFA INJ 20000 UNIT/1 ML VIAL (RENAL) IV PRN (05:00)
[2016-10-16] MEDS: AMOXICILLIN TR/POT CLAVULANATE 500-125 MG TAB PO SCH ×3 (06:00→21:37)
[2016-10-16] MEDS: HEPARIN SOD (PORCINE) 5,000 UNIT/ML 1 ML SYRINGE SUBCUT SCH ×3 (06:00→21:37)
[2016-10-16 06:11] LABS: HEMATOCRIT 22.6 % (36.0-47.0); HEMOGLOBIN 7.6 g/dL (12.0-15.5); HGB HCT DIFFERENCE 0.2; MEAN CORPUSCULAR HGB CONC 33.5 g/dL (32.0-36.0); MEAN CORPUSCULAR VOLUME 84 fl (80-97); RED BLOOD COUNT 2.71 10^6/uL (3.72-5.28); RED CELL DISTRIBUTION WIDTH 18.8 % (11.5-14.0); WHITE BLOOD COUNT 8.5 10^3/uL (4.0-10.5)
[2016-10-16 06:13] LABS: ANION GAP 13 (5-19); BLOOD UREA NITROGEN 31 mg/dL (7-20); CALCIUM 8.1 mg/dL (8.4-10.2); CARBON DIOXIDE 27 mmol/L (22-30); CHLORIDE 95 mmol/L (98-107); CREATININE RESULT 4.45 mg/dL (0.52-1.25); GLUCOSE 48 mg/dL (75-110); POTASSIUM 3.9 mmol/L (3.6-5.0); SODIUM 134.8 mmol/L (137-145)
[2016-10-16] MEDS ORDERED: DIPHENHYDRAMINE HCL 50 MG/ML VIAL IV ONE (10:30)
[2016-10-16] MEDS: CARVEDILOL 12.5 MG TABLET PO SCH ×2 (12:39→21:37)
[2016-10-16] MEDS: CITALOPRAM HYDROBROMIDE 20 MG TABLET PO SCH (12:41)
[2016-10-16] MEDS: DOCUSATE SODIUM 100 MG CAPSULE PO SCH (12:41)
[2016-10-16] MEDS: DRONABINOL 2.5 MG CAPSULE PO SCH ×2 (12:41→17:31)
[2016-10-16] MEDS: SITAGLIPTIN PHOSPHATE 25 MG TABLET PO SCH (12:42)
[2016-10-16] MEDS: CEFTRIAXONE 1 GM/D5W RTU 1 GM/50 ML RTUPB IV SCH (12:42)
[2016-10-16] MEDS: BUDESONIDE/FORMOTEROL 160-4.5 MCG 60 PUFF/6 GM MDI IH SCH ×2 (12:42→17:32)
[2016-10-16] MEDS: FOLIC ACID/VITAMIN B COMP W-C CAPSULE PO SCH (12:42)
--- NOTE | 2016-10-16 15:36 | PDOC PROGRESS REPORT ---
Subjective Progress Note for:: 10/16/16 Subjective:: I saw the patient on dialysis this morning at around 9:05 AM. She was in good spirits and was pretty stable without voicing any complaints. Her blood pressure was a little bit elevated but she was receiving blood during dialysis treatment. She received 2 units of packed RBC during dialysis. She complains of a little bit of itching at the end of the dialysis treatment but no rash. She tolerated dialysis well on the blood transfusion without any problems or complaints. She denied any pain. Physical Exam Vital Signs: Temp Pulse Resp BP Pulse Ox 99.3 F 88 18 155/47 H 100 10/16/16 13:00 10/16/16 13:00 10/16/16 13:00 10/16/16 13:00 10/16/16 13:00 Intake & Output 10/15/16 10/16/16 10/17/16 06:59 06:59 06:59 Intake Total 1310 777 900 Output Total 50 2700 Balance 1310 727 -1800 Weight 75.3 kg 76.2 kg Vital signs during dialysis when I saw her this morning: Blood pressure 174/70 the lowest was 140/62, pulse rate of 72, blood flow rate of 350 more per minute and dialysate flow rate of 600 minimal per minute. Exam: General appearance: [PRESENT: no acute distress, cooperative, well-developed, well-nourished] Head exam: [PRESENT: atraumatic, normocephalic] Eye exam: [PRESENT: conjunctiva pale, PERRLA. ABSENT: scleral icterus] Neck exam: [ABSENT: JVD] Respiratory exam: [PRESENT: Diminished breath sounds. ABSENT: crackles, rales, rhonchi, unlabored, wheezes] Cardiovascular exam: [PRESENT: Regular rate rhythm -+S1, +S2. ABSENT: diastolic murmur, systolic murmur] GI/Abdominal exam: [PRESENT: normal bowel sounds, soft. ABSENT: guarding, mass , tenderness] Extremities exam: [ABSENT: No edema] Neurological exam: [PRESENT: alert, awake, demented.] Skin exam: [PRESENT: dry, warm,] Results Laboratory Results: 10/16/16 05:37 10/16/16 05:37 10/15/16 10/16/16 10/16/16 16:50 05:37 05:37 WBC 8.5 RBC 2.71 L Hgb 7.6 L Hct 22.6 L MCV 84 MCH 28.0 MCHC 33.5 RDW 18.8 H Plt Count 186 Sodium 134.8 L Potassium 3.9 Chloride 95 L Carbon Dioxide 27 Anion Gap 13 BUN 31 H Creatinine 4.45 H Est GFR ( Amer) 11 L Est GFR (Non-Af Amer) 9 L Glucose 48 L Calcium 8.1 L Blood Type O POSITIVE Antibody Screen NEGATIVE 10/10/16 23:24 Blood Blood Culture - Final NO GROWTH IN 5 DAYS 10/13/16 15:41 Garcia Catheter Urine Culture - Final C.albicans/C.dubliniensis 10/11/16 10/11/16 10/11/16 04:06 04:06 10:43 Creatine Kinase < 20 L < 20 L Troponin I 0.029 10/11/16 10/14/16 10/15/16 10:43 06:48 06:06 Creatine Kinase Troponin I 0.023 0.035 0.021 Impressions: Knee X-Ray 10/10/16 16:27 IMPRESSION: NO RADIOGRAPHIC EVIDENCE OF ACUTE INJURY. Hip/Pelvis X-Ray 10/13/16 09:47 IMPRESSION: SATISFACTORY POSTOPERATIVE RIGHT HIP. Chest X-Ray 10/14/16 08:00 IMPRESSION: Stable chest. Findings as above. Assessment & Plan - Diagnosis (1) End-stage renal disease on hemodialysis Is this a current diagnosis for this admission?: YesPlan: We did dialysis today for 3 hours, using the patient's AV fistula, with 3 potassium bath, blood flow rate of 350 mL per minute, dialysate flow rate of 600 mL per minute, ultrafiltration as tolerated, no heparin and Procrit with 20, 000 units during dialysis intravenously. Patient was transfused 2 units of packed RBC during dialysis treatment. The patient was monitored and she tolerated procedure well. We'll continue dialysis support while here in the hospital. (2) Hypertension Is this a current diagnosis for this admission?: YesPlan: Continue current blood pressure medications. Well controlled except during blood transfusion. (3) Closed right hip fracture Qualifiers: Encounter type: subsequent encounter Qualified Code(s): S72.001A - Fracture of unspecified part of neck of right femur, initial encounter for closed fracture Is this a current diagnosis for this admission?: YesPlan: Status post right hip hemiarthroplasty 10/13/[address] Neff. (4) Urinary tract infection Qualifiers: Hematuria presence: with hematuria Is this a current diagnosis for this admission?: YesPlan: On IV antibiotics. (5) Anemia due to blood loss Is this a current diagnosis for this admission?: YesPlan: Patient was transfused 2 units of packed RBC during dialysis today. - Time Time with patient: 15-25 minutes
[2016-10-16] MEDS: INSULIN LISPRO 100 UNIT/ML 3 ML VIAL SUBCUT PRN (17:33)
--- NOTE | 2016-10-16 20:53 | PROGRESS NOTE E ---
Progress Note NAME: VAISHALI GODOY : 1930 AGE: 86Y DATE: 10/16/2016 ROOM: 433 SUBJECTIVE: Note the patient did receive 2 units of packed RBCs while she was having dialysis. At present, she is in the room without any chest pain or discomfort. She is pleasantly confused. Denies any shortness of breath, PND or orthopnea. Her pain medications have kept her pain free with respect to her hip surgery. OBJECTIVE: GENERAL: The patient is well built, in no acute distress. VITAL SIGNS: She is afebrile with a temperature of 99.3 degrees Fahrenheit and practices low grade temperature orally. Pulse is 88 beats per minute. Blood pressure 155/47. Respirations are 18 per minute. O2 sats are 100% on room air. HEAD: Atraumatic, normocephalic. EYES: Pupils are equal, round, regular, reactive to light and accommodation. Extraocular movements are normal. There is conjunctival pallor. There is no scleral icterus. ENT: Negative. NECK: Supple. There is no JVD. Carotids are equal, there is no bruits. There is no goiter. There is no lymphadenopathy. Trachea is central. LUNGS: Clear to auscultation and percussion. CARDIOVASCULAR: S1, S2 heard. There is no S3 gallop. There is no S4 gallop. There is systolic murmur in the left sternal border and the apex. There is no rub. ABDOMEN: Soft, nontender. There is no hepatosplenomegaly. Bowel sounds are well heard. CENTRAL NERVOUS SYSTEM: The patient is conscious, confused, but pleasantly so with no focal deficits. PSYCHIATRIC: The patient does not appear to be agitated or belligerent. LABORATORY DATA: The patient's white count is 8500, hemoglobin has dropped to 7.6, hematocrit is 22.6, and platelet count is 186,000. Note that the patient did receive 2 units of packed RBC's during dialysis. After this hemoglobin, repeat hemoglobin will be done in the morning. The patient's sodium is 134.8, potassium is 3.9, chloride 95, CO2 is 27. The patient's BUN is 31, creatinine 4.45, GFR is reduced at 11 due to her chronic kidney disease stage V. The patient is on dialysis. The glucose is 207 yesterday and this morning was 58 and subsequently 86 and 97. Potassium is 8.1. IMPRESSION: 1. POSTOPERATIVE ANEMIA, MOST LIKELY DUE TO BLOOD LOSS. Note that the patient did receive 2 units of packed RBC's during dialysis. 2. STATUS POST RIGHT HIP FRACTURE, STABLE. Status post surgery. 3. CORONARY ARTERY DISEASE. History of stent in unknown vessel. The patient with no symptoms of angina. Continue current treatment. At present no evidence of postoperative or perioperative myocardial infarction and no anginal symptoms. 4. HYPERTENSION. Blood pressure slightly elevated. 5. DIABETES MELLITUS TYPE 2, INSULIN DEPENDENT. 6. END-STAGE RENAL DISEASE. On hemodialysis. 7. HYPERLIPIDEMIA. 8. DEMENTIA. RECOMMENDATIONS: 1. Continue current treatment. Cardiac status is stable. 2. Continue current medication. 3. Would recommend that the patient have an outpatient Cardiolite stress test. 3. Also, will try to get the records of the patient's stent placement in [place]. The patient's cardiac status is stable as discussed with Dr. Richardson. 4. Will sign off the case. TIME SPENT: Note, 35 minutes spent on the patient with more than 50% of time spent in direct patient care and also reviewed the patient's medications and discussed with attending physician on the case. We will sign off the case. DICTATING PHYSICIAN: MARILEE REDMAN M.D. [id number] KRISS#: [id number] ID: [id number] JOB#: [id number] ACCT: [id number] cc: >
[2016-10-16] MEDS: ATORVASTATIN CALCIUM 20 MG TABLET PO SCH (21:37)
[2016-10-16] MEDS: INSULIN DETEMIR 100 UNIT/ML 3 ML PEN SUBCUT SCH (21:38)
[2016-10-17] MEDS: HEPARIN SOD (PORCINE) 5,000 UNIT/ML 1 ML SYRINGE SUBCUT SCH ×3 (06:22→21:15)
[2016-10-17] MEDS: ACETAMINOPHEN 325 MG TABLET PO PRN ×3 (06:22→19:20)
[2016-10-17] MEDS: AMOXICILLIN TR/POT CLAVULANATE 500-125 MG TAB PO SCH ×3 (06:22→21:18)
--- NOTE | 2016-10-17 06:31 | PDOC PROGRESS REPORT ---
Subjective Progress Note for:: 10/17/16 Subjective:: Patient nonverbal Physical Exam Vital Signs: Temp Pulse Resp BP Pulse Ox 36.9 C 81 17 128/74 H 96 10/16/16 23:40 10/16/16 23:40 10/16/16 23:40 10/16/16 23:40 10/16/16 23:40 Intake & Output 10/15/16 10/16/16 10/17/16 06:59 06:59 06:59 Intake Total 2887 758 0953 Output Total 50 2700 Balance 1310 727 -950 Weight 75.3 kg 76.2 kg General appearance: PRESENT: no acute distress Head exam: PRESENT: normocephalic Respiratory exam: PRESENT: unlabored Cardiovascular exam: PRESENT: RRR Pulses: PRESENT: +1 pedal pulses bilateral Vascular exam: PRESENT: normal capillary refill GI/Abdominal exam: PRESENT: soft Extremities exam: PRESENT: other - Right hip dressing remains clean dry and intact. Leg lengths are equal. Neurovascular examinations intact. Results Laboratory Results: 10/16/16 05:37 10/16/16 05:37 10/15/16 16:50 Blood Type O POSITIVE Antibody Screen NEGATIVE 10/11/16 10/11/16 10/11/16 04:06 04:06 10:43 Creatine Kinase < 20 L < 20 L Troponin I 0.029 10/11/16 10/14/16 10/15/16 10:43 06:48 06:06 Creatine Kinase Troponin I 0.023 0.035 0.021 Impressions: Knee X-Ray 10/10/16 16:27 IMPRESSION: NO RADIOGRAPHIC EVIDENCE OF ACUTE INJURY. Hip/Pelvis X-Ray 10/13/16 09:47 IMPRESSION: SATISFACTORY POSTOPERATIVE RIGHT HIP. Chest X-Ray 10/14/16 08:00 IMPRESSION: Stable chest. Findings as above. Status: Imported from PACS Assessment & Plan - Diagnosis (1) Closed right hip fracture Qualifiers: Encounter type: subsequent encounter Qualified Code(s): S72.001A - Fracture of unspecified part of neck of right femur, initial encounter for closed fracture Is this a current diagnosis for this admission?: YesPlan: 86-year-old black female status post right proximal femoral hemiarthroplasty for femoral neck fracture. Wound is healing uneventfully. Postoperative physical therapy has been rather limited. Anticipate transfer to a shelter facility when bed available. (2) Urinary tract infection Qualifiers: Hematuria presence: with hematuria Is this a current diagnosis for this admission?: YesPlan: Urinary tract infection appears to be Maddy. Current antibiotics can be discontinued. (3) Anemia due to blood loss Is this a current diagnosis for this admission?: YesPlan: Patient received 2 units of packed red blood cells during dialysis yesterday. Posttransfusion hematocrit pending. - Time Time Spent with patient: 15-24 minutes Anticipated discharge: SNF Within: when bed available
[2016-10-17] MEDS: DRONABINOL 2.5 MG CAPSULE PO SCH ×2 (10:05→19:19)
[2016-10-17] MEDS: CEFTRIAXONE 1 GM/D5W RTU 1 GM/50 ML RTUPB IV SCH (10:06)
[2016-10-17] MEDS: CITALOPRAM HYDROBROMIDE 20 MG TABLET PO SCH (10:06)
[2016-10-17] MEDS: FOLIC ACID/VITAMIN B COMP W-C CAPSULE PO SCH (10:06)
[2016-10-17] MEDS: CARVEDILOL 12.5 MG TABLET PO SCH ×2 (10:06→21:17)
[2016-10-17] MEDS: DOCUSATE SODIUM 100 MG CAPSULE PO SCH (10:06)
[2016-10-17] MEDS: SITAGLIPTIN PHOSPHATE 25 MG TABLET PO SCH (10:08)
[2016-10-17] MEDS: BUDESONIDE/FORMOTEROL 160-4.5 MCG 60 PUFF/6 GM MDI IH SCH ×2 (10:32→19:17)
[2016-10-17] MEDS: INSULIN LISPRO 100 UNIT/ML 3 ML VIAL SUBCUT PRN ×2 (12:22→21:22)
[2016-10-17] MEDS ORDERED: LORAZEPAM INJ 2 MG/1 ML VIAL IV ONE (16:15)
[2016-10-17] MEDS ORDERED: LORAZEPAM INJ 2 MG/1 ML VIAL IV PRN (19:58)
[2016-10-17] MEDS ORDERED: HALOPERIDOL LACTATE INJ 5 MG/1 ML VIAL IV PRN (20:00)
[2016-10-17] MEDS ORDERED: MUPIROCIN CALCIUM 2% CREAM 15 GM TP SCH (20:30)
--- NOTE | 2016-10-17 20:42 | PDOC PROGRESS REPORT ---
Subjective Progress Note for:: 10/17/16 Subjective:: She was seen by the bedside, she is very confused and agitated, the MRSA screen was positive, she has a history of MRSA in the past. We will apply Bactroban 0.5 g into both nostrils. She is already on IV Rocephin for empiric treatment for UTI Physical Exam Vital Signs: Temp Pulse Resp BP Pulse Ox 98.2 F 97 20 177/80 H 100 10/17/16 16:00 10/17/16 16:00 10/17/16 16:00 10/17/16 16:00 10/17/16 16:00 Intake & Output 10/16/16 10/17/16 10/18/16 06:59 06:59 06:59 Intake Total 777 1750 1010 Output Total 50 2700 Balance 727 -950 1010 Weight 76.2 kg 76.5 kg General appearance: PRESENT: other - Patient is confused and agitated Eye exam: PRESENT: PERRLA Respiratory exam: PRESENT: clear to auscultation kennedi Cardiovascular exam: PRESENT: +S1, +S2 GI/Abdominal exam: PRESENT: soft Neurological exam: PRESENT: alert, other - Confused Results Laboratory Results: 10/16/16 05:37 10/16/16 05:37 10/11/16 10/11/16 10/11/16 04:06 04:06 10:43 Creatine Kinase < 20 L < 20 L Troponin I 0.029 10/11/16 10/14/16 10/15/16 10:43 06:48 06:06 Creatine Kinase Troponin I 0.023 0.035 0.021 Impressions: Knee X-Ray 10/10/16 16:27 IMPRESSION: NO RADIOGRAPHIC EVIDENCE OF ACUTE INJURY. Hip/Pelvis X-Ray 10/13/16 09:47 IMPRESSION: SATISFACTORY POSTOPERATIVE RIGHT HIP. Chest X-Ray 10/14/16 08:00 IMPRESSION: Stable chest. Findings as above. Assessment & Plan - Diagnosis (1) Closed right hip fracture Qualifiers: Encounter type: subsequent encounter Qualified Code(s): S72.001A - Fracture of unspecified part of neck of right femur, initial encounter for closed fracture Is this a current diagnosis for this admission?: Yes (2) End-stage renal disease on hemodialysis Is this a current diagnosis for this admission?: Yes (3) Acute delirium Is this a current diagnosis for this admission?: YesPlan: The etiology of the acute delirium is not clear, she is already on IV antibiotic empirically for UTI. Urine culture result is pending. She will be treated with lorazepam and haloperidol on a when necessary basis. no physically restrain (4) Urinary tract infection Qualifiers: Hematuria presence: without hematuria Is this a current diagnosis for this admission?: Yes (5) Acute diastolic (congestive) heart failure Is this a current diagnosis for this admission?: Yes (6) Anemia in chronic kidney disease Is this a current diagnosis for this admission?: Yes (7) Morbid obesity due to excess calories Is this a current diagnosis for this admission?: Yes
--- NOTE | 2016-10-17 20:44 | PDOC PROGRESS REPORT ---
Subjective Progress Note for:: 10/16/16 Subjective:: Patient seen by the bedside, discharge planning is working on placement for rehabilitation. Physical Exam Vital Signs: Temp Pulse Resp BP Pulse Ox 100.2 F 85 14 134/52 H 97 10/16/16 16:00 10/16/16 16:00 10/16/16 16:00 10/16/16 16:00 10/16/16 16:00 Intake & Output 10/15/16 10/16/16 10/17/16 06:59 06:59 06:59 Intake Total 1310 777 900 Output Total 50 2700 Balance 1310 727 -1800 Weight 75.3 kg 76.2 kg General appearance: PRESENT: no acute distress Eye exam: PRESENT: PERRLA Respiratory exam: PRESENT: clear to auscultation kennedi Cardiovascular exam: PRESENT: +S1, +S2 GI/Abdominal exam: PRESENT: soft Results Laboratory Results: 10/16/16 05:37 10/16/16 05:37 10/15/16 10/16/16 10/16/16 16:50 05:37 05:37 WBC 8.5 RBC 2.71 L Hgb 7.6 L Hct 22.6 L MCV 84 MCH 28.0 MCHC 33.5 RDW 18.8 H Plt Count 186 Sodium 134.8 L Potassium 3.9 Chloride 95 L Carbon Dioxide 27 Anion Gap 13 BUN 31 H Creatinine 4.45 H Est GFR ( Amer) 11 L Est GFR (Non-Af Amer) 9 L Glucose 48 L Calcium 8.1 L Blood Type O POSITIVE Antibody Screen NEGATIVE 10/10/16 23:24 Blood Blood Culture - Final NO GROWTH IN 5 DAYS 10/13/16 15:41 Garcia Catheter Urine Culture - Final C.albicans/C.dubliniensis 10/11/16 10/11/16 10/11/16 04:06 04:06 10:43 Creatine Kinase < 20 L < 20 L Troponin I 0.029 10/11/16 10/14/16 10/15/16 10:43 06:48 06:06 Creatine Kinase Troponin I 0.023 0.035 0.021 Impressions: Knee X-Ray 10/10/16 16:27 IMPRESSION: NO RADIOGRAPHIC EVIDENCE OF ACUTE INJURY. Hip/Pelvis X-Ray 10/13/16 09:47 IMPRESSION: SATISFACTORY POSTOPERATIVE RIGHT HIP. Chest X-Ray 10/14/16 08:00 IMPRESSION: Stable chest. Findings as above. Assessment & Plan - Diagnosis (1) Closed right hip fracture Qualifiers: Encounter type: subsequent encounter Is this a current diagnosis for this admission?: Yes (2) End-stage renal disease on hemodialysis Is this a current diagnosis for this admission?: Yes
[2016-10-17] MEDS: ATORVASTATIN CALCIUM 20 MG TABLET PO SCH (21:16)
[2016-10-17] MEDS: INSULIN DETEMIR 100 UNIT/ML 3 ML PEN SUBCUT SCH (21:19)
[2016-10-17] MEDS ORDERED: MUPIROCIN CALCIUM 2% CREAM 15 GM TP ONE (22:00)
[2016-10-18] MEDS: ACETAMINOPHEN 325 MG TABLET PO PRN ×4 (03:05→17:58)
[2016-10-18] MEDS: HEPARIN SOD (PORCINE) 5,000 UNIT/ML 1 ML SYRINGE SUBCUT SCH ×3 (05:26→21:52)
[2016-10-18] MEDS: AMOXICILLIN TR/POT CLAVULANATE 500-125 MG TAB PO SCH ×3 (05:28→21:52)
[2016-10-18 07:30] LABS: ABSOLUTE BASOPHILS # (AUTO) 0.1 10^3/uL (0.0-0.2); ABSOLUTE EOSINOPHILS # (AUTO) 0.2 10^3/uL (0.0-0.6); ABSOLUTE LYMPHOCYTES (AUTO) 0.9 10^3/uL (0.5-4.7); ABSOLUTE MONOCYTES (AUTO) 1.5 10^3/uL (0.1-1.4); ABSOLUTE NEUT (AUTO) 5.5 10^3/uL (1.7-8.2); BASOPHILS % (AUTO) 0.8 % (0-2); EOSINOPHILS % (AUTO) 2.5 % (0-6); MEAN CORPUSCULAR HEMOGLOBIN 28.6 pg (27.0-33.4); MEAN CORPUSCULAR HGB CONC 33.4 g/dL (32.0-36.0); MEAN CORPUSCULAR VOLUME 86 fl (80-97); MONOCYTES % (AUTO) 18.8 % (3-13); SEGMENTED NEUTROPHILS % (AUTO) 66.9 % (42-78); WHITE BLOOD COUNT 8.2 10^3/uL (4.0-10.5)
[2016-10-18 07:39] LABS: ANION GAP 12 (5-19); BLOOD UREA NITROGEN 26 mg/dL (7-20); CALCIUM 8.7 mg/dL (8.4-10.2); CARBON DIOXIDE 28 mmol/L (22-30); CHLORIDE 96 mmol/L (98-107); CREATININE RESULT 4.11 mg/dL (0.52-1.25); GLUCOSE 112 mg/dL (75-110); POTASSIUM 3.9 mmol/L (3.6-5.0); SODIUM 135.5 mmol/L (137-145)
[2016-10-18] MEDS ORDERED: EPOETIN ALFA 5,000 UNIT in SYRINGE, DISPOSABLE, 1 EACH IV PRN (12:02)
[2016-10-18] MEDS: DOCUSATE SODIUM 100 MG CAPSULE PO SCH (12:53)
[2016-10-18] MEDS: CARVEDILOL 12.5 MG TABLET PO SCH ×2 (12:54→21:52)
[2016-10-18] MEDS: CITALOPRAM HYDROBROMIDE 20 MG TABLET PO SCH (12:54)
[2016-10-18] MEDS: FOLIC ACID/VITAMIN B COMP W-C CAPSULE PO SCH (12:54)
[2016-10-18] MEDS: CEFTRIAXONE 1 GM/D5W RTU 1 GM/50 ML RTUPB IV SCH (12:54)
[2016-10-18] MEDS: SITAGLIPTIN PHOSPHATE 25 MG TABLET PO SCH ×2 (12:57→13:10)
[2016-10-18] MEDS: MUPIROCIN CALCIUM 2% CREAM 15 GM TP SCH ×2 (12:59→18:01)
[2016-10-18] MEDS: BUDESONIDE/FORMOTEROL 160-4.5 MCG 60 PUFF/6 GM MDI IH SCH ×2 (13:03→18:01)
--- NOTE | 2016-10-18 15:02 | PDOC PROGRESS REPORT ---
Subjective Progress Note for:: 10/18/16 Subjective:: I saw the patient on dialysis at around 8:35 AM this morning. She is pleasant and not agitated. As usual she doesn't really complain of anything. Her blood pressure was a little bit elevated at the start of dialysis. She otherwise tolerated dialysis well without any problems or complications. Physical Exam Vital Signs: Temp Pulse Resp BP Pulse Ox 98.7 F 80 20 175/61 H 100 10/18/16 08:00 10/18/16 08:00 10/18/16 08:00 10/18/16 08:00 10/18/16 08:00 Intake & Output 10/17/16 10/18/16 10/19/16 06:59 06:59 06:59 Intake Total 1750 1360 Output Total 2700 2400 Balance -950 1360 -2400 Weight 76.5 kg 76.5 kg Vital signs during dialysis when I was seeing her: Blood pressure of 188/74, heart rate of 74, temperature 98.9, respiration of 14, blood flow rate of 350 ml /min, dialysate flow rate of 600 minimal per minute. Exam: General appearance: [PRESENT: no acute distress, cooperative, well-developed, well-nourished] Head exam: [PRESENT: atraumatic, normocephalic] Eye exam: [PRESENT: conjunctiva pink, PERRLA. ABSENT: scleral icterus] Neck exam: [ABSENT: JVD] Respiratory exam: [PRESENT: Diminished breath sounds. ABSENT: crackles, rales, rhonchi, unlabored, wheezes] Cardiovascular exam: [PRESENT: Regular rate rhythm -+S1, +S2. ABSENT: diastolic murmur, systolic murmur] GI/Abdominal exam: [PRESENT: normal bowel sounds, soft. ABSENT: guarding, mass , tenderness] Extremities exam: [ABSENT: No edema] Neurological exam: [PRESENT: alert, awake, oriented to person, place and time.] Skin exam: [PRESENT: dry, warm,] Results Laboratory Results: 10/18/16 07:00 10/18/16 07:00 10/18/16 10/18/16 07:00 07:00 WBC 8.2 RBC 3.50 L Hgb 10.0 L D Hct 30.0 L MCV 86 MCH 28.6 MCHC 33.4 RDW 17.0 H Plt Count 221 Seg Neutrophils % 66.9 Lymphocytes % 11.0 L Monocytes % 18.8 H Eosinophils % 2.5 Basophils % 0.8 Absolute Neutrophils 5.5 Absolute Lymphocytes 0.9 Absolute Monocytes 1.5 H Absolute Eosinophils 0.2 Absolute Basophils 0.1 Sodium 135.5 L Potassium 3.9 Chloride 96 L Carbon Dioxide 28 Anion Gap 12 BUN 26 H Creatinine 4.11 H Est GFR ( Amer) 12 L Est GFR (Non-Af Amer) 10 L Glucose 112 H Calcium 8.7 10/11/16 10/11/16 10/11/16 04:06 04:06 10:43 Creatine Kinase < 20 L < 20 L Troponin I 0.029 10/11/16 10/14/16 10/15/16 10:43 06:48 06:06 Creatine Kinase Troponin I 0.023 0.035 0.021 Impressions: Knee X-Ray 10/10/16 16:27 IMPRESSION: NO RADIOGRAPHIC EVIDENCE OF ACUTE INJURY. Hip/Pelvis X-Ray 10/13/16 09:47 IMPRESSION: SATISFACTORY POSTOPERATIVE RIGHT HIP. Chest X-Ray 10/14/16 08:00 IMPRESSION: Stable chest. Findings as above. Assessment & Plan - Diagnosis (1) End-stage renal disease on hemodialysis Is this a current diagnosis for this admission?: YesPlan: We will do dialysis today for 3 hours, using the patient's AV fistula, with 3 potassium bath, blood flow rate of a 50 mL per minute, dialysate flow rate of 600 mL per minute, ultrafiltration as tolerated, no heparin and Procrit with 5000 units during dialysis intravenously. Patient was monitored and she tolerated procedure well. (2) Hypertension Is this a current diagnosis for this admission?: YesPlan: Continue current blood pressure medications. Monitor blood pressure and if it persistently elevated, blood pressure medications may need to be adjusted. (3) Closed right hip fracture Qualifiers: Encounter type: subsequent encounter Is this a current diagnosis for this admission?: YesPlan: Status post right hip hemiarthroplasty 10/13/[address] Neff. (4) Urinary tract infection Qualifiers: Hematuria presence: without hematuria Is this a current diagnosis for this admission?: YesPlan: Urine culture showed positive for Arina which is likely a colonizer. I don't think she needs antibiotics. (5) Anemia due to blood loss Is this a current diagnosis for this admission?: YesPlan: Patient was transfused 2 units of packed RBC during dialysis last Friday. Procrit 5000 units IV was given today during dialysis. - Time Time with patient: 15-25 minutes
[2016-10-18] MEDS: ATORVASTATIN CALCIUM 20 MG TABLET PO SCH (21:52)
[2016-10-18] MEDS: INSULIN DETEMIR 100 UNIT/ML 3 ML PEN SUBCUT SCH (21:57)
[2016-10-19] MEDS: ACETAMINOPHEN 325 MG TABLET PO PRN ×5 (00:01→23:20)
[2016-10-19] MEDS: HEPARIN SOD (PORCINE) 5,000 UNIT/ML 1 ML SYRINGE SUBCUT SCH ×3 (05:49→21:43)
[2016-10-19] MEDS: AMOXICILLIN TR/POT CLAVULANATE 500-125 MG TAB PO SCH (05:49)
[2016-10-19] MEDS ORDERED: EPOETIN ALFA INJ 20000 UNIT/1 ML VIAL (RENAL) IV SCH (10:00)
[2016-10-19] MEDS: DOCUSATE SODIUM 100 MG CAPSULE PO SCH (11:33)
[2016-10-19] MEDS: BUDESONIDE/FORMOTEROL 160-4.5 MCG 60 PUFF/6 GM MDI IH SCH ×2 (11:33→19:19)
[2016-10-19] MEDS: CITALOPRAM HYDROBROMIDE 20 MG TABLET PO SCH (11:33)
[2016-10-19] MEDS: CARVEDILOL 12.5 MG TABLET PO SCH ×2 (11:33→21:43)
[2016-10-19] MEDS: FOLIC ACID/VITAMIN B COMP W-C CAPSULE PO SCH (11:33)
[2016-10-19] MEDS: CEFTRIAXONE 1 GM/D5W RTU 1 GM/50 ML RTUPB IV SCH (11:37)
[2016-10-19] MEDS: MUPIROCIN CALCIUM 2% CREAM 15 GM TP SCH ×2 (11:37→19:18)
--- NOTE | 2016-10-19 14:10 | PDOC PROGRESS REPORT ---
Subjective Progress Note for:: 10/19/16 Subjective:: Patient is nonverbal resting in bed. No issues overnight. Physical Exam Vital Signs: Temp Pulse Resp BP Pulse Ox 37.3 C 78 16 176/67 H 100 10/19/16 12:37 10/19/16 12:37 10/19/16 12:37 10/19/16 12:37 10/19/16 12:37 Intake & Output 10/18/16 10/19/16 10/20/16 06:59 06:59 06:59 Intake Total 1360 590 60 Output Total 2400 Balance 1360 -1810 60 Weight 76.5 kg 77.7 kg General appearance: PRESENT: no acute distress Adult Front & Back Image: 1 - Dressing is dry clean and intact. No erythema. Limb lengths are grossly equal. Moves her toes and ankles to stimuli. Good capillary refill. Results Laboratory Results: 10/18/16 07:00 10/18/16 07:00 10/11/16 10/11/16 10/11/16 04:06 04:06 10:43 Creatine Kinase < 20 L < 20 L Troponin I 0.029 10/11/16 10/14/16 10/15/16 10:43 06:48 06:06 Creatine Kinase Troponin I 0.023 0.035 0.021 Impressions: Knee X-Ray 10/10/16 16:27 IMPRESSION: NO RADIOGRAPHIC EVIDENCE OF ACUTE INJURY. Hip/Pelvis X-Ray 10/13/16 09:47 IMPRESSION: SATISFACTORY POSTOPERATIVE RIGHT HIP. Chest X-Ray 10/14/16 08:00 IMPRESSION: Stable chest. Findings as above. Assessment & Plan - Plan Summary Plan Summary: Patient status post right hemiarthroplasty. Continue therapy in house until she is medically stable and able to transfer to retirement facility.
[2016-10-19] MEDS: ATORVASTATIN CALCIUM 20 MG TABLET PO SCH (21:43)
[2016-10-19] MEDS: INSULIN DETEMIR 100 UNIT/ML 3 ML PEN SUBCUT SCH (22:14)
[2016-10-20] MEDS: ACETAMINOPHEN 325 MG TABLET PO PRN (05:36)
[2016-10-20] MEDS: HEPARIN SOD (PORCINE) 5,000 UNIT/ML 1 ML SYRINGE SUBCUT SCH ×3 (05:36→22:07)
[2016-10-20] MEDS: CITALOPRAM HYDROBROMIDE 20 MG TABLET PO SCH (09:45)
[2016-10-20] MEDS: FOLIC ACID/VITAMIN B COMP W-C CAPSULE PO SCH (09:45)
[2016-10-20] MEDS: CARVEDILOL 12.5 MG TABLET PO SCH ×2 (09:46→22:16)
[2016-10-20] MEDS: SITAGLIPTIN PHOSPHATE 25 MG TABLET PO SCH (09:46)
[2016-10-20] MEDS: MUPIROCIN CALCIUM 2% CREAM 15 GM TP SCH ×2 (09:47→17:11)
[2016-10-20] MEDS: BUDESONIDE/FORMOTEROL 160-4.5 MCG 60 PUFF/6 GM MDI IH SCH ×2 (09:47→17:11)
[2016-10-20] MEDS: DOCUSATE SODIUM 100 MG CAPSULE PO SCH (10:02)
--- NOTE | 2016-10-20 15:53 | PDOC PROGRESS REPORT ---
Subjective Progress Note for:: 10/19/16 Subjective:: Patient will need to go to rehabilitation after discharge, discharge planning is working on that Physical Exam Vital Signs: Temp Pulse Resp BP Pulse Ox 99.6 F 83 14 177/76 H 94 10/19/16 16:53 10/19/16 16:53 10/19/16 16:53 10/19/16 16:53 10/19/16 16:53 Intake & Output 10/18/16 10/19/16 10/20/16 06:59 06:59 06:59 Intake Total 1360 590 60 Output Total 2400 Balance 1360 -1810 60 Weight 76.5 kg 77.7 kg General appearance: PRESENT: no acute distress Eye exam: PRESENT: PERRLA Respiratory exam: PRESENT: clear to auscultation kennedi Cardiovascular exam: PRESENT: +S1, +S2 GI/Abdominal exam: PRESENT: soft Results Laboratory Results: 10/18/16 07:00 10/18/16 07:00 10/11/16 10/11/16 10/11/16 04:06 04:06 10:43 Creatine Kinase < 20 L < 20 L Troponin I 0.029 10/11/16 10/14/16 10/15/16 10:43 06:48 06:06 Creatine Kinase Troponin I 0.023 0.035 0.021 Impressions: Knee X-Ray 10/10/16 16:27 IMPRESSION: NO RADIOGRAPHIC EVIDENCE OF ACUTE INJURY. Hip/Pelvis X-Ray 10/13/16 09:47 IMPRESSION: SATISFACTORY POSTOPERATIVE RIGHT HIP. Chest X-Ray 10/14/16 08:00 IMPRESSION: Stable chest. Findings as above. Assessment & Plan - Diagnosis (1) Closed right hip fracture Qualifiers: Encounter type: subsequent encounter Is this a current diagnosis for this admission?: Yes (2) End-stage renal disease on hemodialysis Is this a current diagnosis for this admission?: Yes
--- NOTE | 2016-10-20 15:56 | PDOC PROGRESS REPORT ---
Subjective Progress Note for:: 10/20/16 Subjective:: The nurses said patient vomits whenever she drinks water or food. Physical Exam Vital Signs: Temp Pulse Resp BP Pulse Ox 98.3 F 83 18 175/66 H 100 10/20/16 08:12 10/20/16 08:12 10/20/16 08:12 10/20/16 08:12 10/20/16 08:12 Intake & Output 10/19/16 10/20/16 10/21/16 06:59 06:59 06:59 Intake Total 590 60 Output Total 2400 Balance -1810 60 Weight 77.7 kg 76.9 kg General appearance: PRESENT: no acute distress Eye exam: PRESENT: PERRLA Respiratory exam: PRESENT: clear to auscultation kennedi Cardiovascular exam: PRESENT: +S1, +S2 GI/Abdominal exam: PRESENT: soft Results Laboratory Results: 10/18/16 07:00 10/18/16 07:00 10/19/16 18:40 Stool for White Cells NO WBCs SEEN 10/11/16 10/11/16 10/11/16 04:06 04:06 10:43 Creatine Kinase < 20 L < 20 L Troponin I 0.029 10/11/16 10/14/16 10/15/16 10:43 06:48 06:06 Creatine Kinase Troponin I 0.023 0.035 0.021 Impressions: Knee X-Ray 10/10/16 16:27 IMPRESSION: NO RADIOGRAPHIC EVIDENCE OF ACUTE INJURY. Hip/Pelvis X-Ray 10/13/16 09:47 IMPRESSION: SATISFACTORY POSTOPERATIVE RIGHT HIP. Chest X-Ray 10/14/16 08:00 IMPRESSION: Stable chest. Findings as above. Assessment & Plan - Diagnosis (1) Closed right hip fracture Qualifiers: Encounter type: subsequent encounter Is this a current diagnosis for this admission?: Yes (2) End-stage renal disease on hemodialysis Is this a current diagnosis for this admission?: Yes (3) Vomiting Qualifiers: Vomiting type: unspecified Vomiting Intractability: unspecified Nausea presence: unspecified Qualified Code(s): R11.10 - Vomiting, unspecified Plan: ordered KUB ,barium study
[2016-10-20] MEDS ORDERED: CLONIDINE 0.3 MG/24 HR PATCH.TDWK TD SCH (18:00)
[2016-10-20] MEDS ORDERED: CLONIDINE 0.3 MG/24 HR PATCH.TDWK ONE (21:08)
[2016-10-20] MEDS: INSULIN DETEMIR 100 UNIT/ML 3 ML PEN SUBCUT SCH (22:16)
[2016-10-20] MEDS: ATORVASTATIN CALCIUM 20 MG TABLET PO SCH (22:16)
[2016-10-21 05:32] LABS: ABSOLUTE BASOPHILS # (AUTO) 0.1 10^3/uL (0.0-0.2); ABSOLUTE EOSINOPHILS # (AUTO) 0.1 10^3/uL (0.0-0.6); ABSOLUTE LYMPHOCYTES (AUTO) 1.4 10^3/uL (0.5-4.7); ABSOLUTE MONOCYTES (AUTO) 1.2 10^3/uL (0.1-1.4); ABSOLUTE NEUT (AUTO) 5.7 10^3/uL (1.7-8.2); BASOPHILS % (AUTO) 0.7 % (0-2); EOSINOPHILS % (AUTO) 1.5 % (0-6); HEMATOCRIT 28.8 % (36.0-47.0); HEMOGLOBIN 9.8 g/dL (12.0-15.5); HGB HCT DIFFERENCE 0.6; LYMPHOCYTES % (AUTO) 15.9 % (13-45); MEAN CORPUSCULAR HEMOGLOBIN 28.7 pg (27.0-33.4); MEAN CORPUSCULAR HGB CONC 34.1 g/dL (32.0-36.0); MEAN CORPUSCULAR VOLUME 84 fl (80-97); MONOCYTES % (AUTO) 14.4 % (3-13); RED BLOOD COUNT 3.42 10^6/uL (3.72-5.28); RED CELL DISTRIBUTION WIDTH 17.7 % (11.5-14.0); SEGMENTED NEUTROPHILS % (AUTO) 67.5 % (42-78); WHITE BLOOD COUNT 8.5 10^3/uL (4.0-10.5)
[2016-10-21] MEDS: HEPARIN SOD (PORCINE) 5,000 UNIT/ML 1 ML SYRINGE SUBCUT SCH ×2 (05:37→18:52)
[2016-10-21 05:49] LABS: ANION GAP 12 (5-19); BLOOD UREA NITROGEN 25 mg/dL (7-20); CALCIUM 8.8 mg/dL (8.4-10.2); CARBON DIOXIDE 28 mmol/L (22-30); CHLORIDE 101 mmol/L (98-107); GLUCOSE 104 mg/dL (75-110); POTASSIUM 3.6 mmol/L (3.6-5.0); SODIUM 140.6 mmol/L (137-145)
[2016-10-21] MEDS: BUDESONIDE/FORMOTEROL 160-4.5 MCG 60 PUFF/6 GM MDI IH SCH ×2 (10:47→19:24)
[2016-10-21] MEDS: MUPIROCIN CALCIUM 2% CREAM 15 GM TP SCH ×2 (10:48→19:24)
[2016-10-21] MEDS: DOCUSATE SODIUM 100 MG CAPSULE PO SCH (10:50)
[2016-10-21 11:34] LABS: ABSOLUTE BASOPHILS # (AUTO) 0.1 10^3/uL (0.0-0.2); ABSOLUTE EOSINOPHILS # (AUTO) 0.1 10^3/uL (0.0-0.6); ABSOLUTE LYMPHOCYTES (AUTO) 1.2 10^3/uL (0.5-4.7); ABSOLUTE MONOCYTES (AUTO) 1.2 10^3/uL (0.1-1.4); ABSOLUTE NEUT (AUTO) 7.4 10^3/uL (1.7-8.2); BASOPHILS % (AUTO) 0.9 % (0-2); EOSINOPHILS % (AUTO) 1.2 % (0-6); HEMATOCRIT 30.4 % (36.0-47.0); HEMOGLOBIN 10.2 g/dL (12.0-15.5); HGB HCT DIFFERENCE 0.2; LYMPHOCYTES % (AUTO) 11.6 % (13-45); MEAN CORPUSCULAR HEMOGLOBIN 28.5 pg (27.0-33.4); MEAN CORPUSCULAR HGB CONC 33.5 g/dL (32.0-36.0); MEAN CORPUSCULAR VOLUME 85 fl (80-97); MONOCYTES % (AUTO) 12.3 % (3-13); RED BLOOD COUNT 3.56 10^6/uL (3.72-5.28); RED CELL DISTRIBUTION WIDTH 17.6 % (11.5-14.0); WHITE BLOOD COUNT 9.9 10^3/uL (4.0-10.5)
[2016-10-21] MEDS: ACETAMINOPHEN 325 MG TABLET PO PRN ×2 (11:42→19:23)
[2016-10-21 11:47] LABS: PROTHROMBIN TIME 14.6 SEC (11.4-15.4)
[2016-10-21 11:48] LABS: PARTIAL THROMBOPLASTIN TIME 37.1 SEC (23.5-35.8)
[2016-10-21] MEDS: CITALOPRAM HYDROBROMIDE 20 MG TABLET PO SCH (16:18)
[2016-10-21] MEDS: FOLIC ACID/VITAMIN B COMP W-C CAPSULE PO SCH (16:18)
[2016-10-21] MEDS: CARVEDILOL 12.5 MG TABLET PO SCH ×2 (16:18→21:29)
[2016-10-21] MEDS: SITAGLIPTIN PHOSPHATE 25 MG TABLET PO SCH (16:19)
--- NOTE | 2016-10-21 19:46 | PDOC PROGRESS REPORT ---
Subjective Progress Note for:: 10/21/16 Subjective:: I saw the patient on dialysis this noontime at around 12:45 PM. Patient did not voice any complaints. There was a note in the chart that according to the nursing staff patient vomits whenever she drinks or eats. Dr. Richardson is working her up for that. Other than that she didn't really have any complaints and she denies any chest pains nor shortness of breath. Patient's blood pressure was initially elevated when dialysis was initiated. Patient was stable on dialysis. Physical Exam Vital Signs: Temp Pulse Resp BP Pulse Ox 97.8 F 81 14 169/72 H 100 10/21/16 16:30 10/21/16 16:30 10/21/16 16:30 10/21/16 16:30 10/21/16 16:30 Intake & Output 10/20/16 10/21/16 10/22/16 06:59 06:59 06:59 Intake Total 60 390 Balance 60 390 Weight 76.9 kg 75.9 kg Vitals during dialysis when I saw her: Blood pressure of 192/91, heart rate of 81, blood flow rate of 400 mL per minute, dialysate flow rate of 600 mL per minute. Exam: General appearance: PRESENT: no acute distress, cooperative, well-developed, well-nourished Head exam: PRESENT: atraumatic, normocephalic Eye exam: PRESENT: conjunctiva pink, PERRLA. ABSENT: scleral icterus Neck exam: ABSENT: JVD Respiratory exam: PRESENT: Diminished breath sounds. ABSENT: crackles, rales, rhonchi, unlabored, wheezes Cardiovascular exam: PRESENT: Regular rate rhythm -+S1, +S2. ABSENT: diastolic murmur, systolic murmur GI/Abdominal exam: PRESENT: normal bowel sounds, soft. ABSENT: guarding, mass, tenderness Extremities exam: ABSENT: No edema Neurological exam: PRESENT: alert, awake, oriented to person, and place. Skin exam: PRESENT: dry, warm, Results Laboratory Results: 10/21/16 11:11 10/21/16 05:18 10/21/16 10/21/16 10/21/16 05:18 05:18 08:40 WBC 8.5 RBC 3.42 L Hgb 9.8 L Hct 28.8 L MCV 84 MCH 28.7 MCHC 34.1 RDW 17.7 H Plt Count 270 Seg Neutrophils % 67.5 Lymphocytes % 15.9 Monocytes % 14.4 H Eosinophils % 1.5 Basophils % 0.7 Absolute Neutrophils 5.7 Absolute Lymphocytes 1.4 Absolute Monocytes 1.2 Absolute Eosinophils 0.1 Absolute Basophils 0.1 Sodium 140.6 Potassium 3.6 Chloride 101 Carbon Dioxide 28 Anion Gap 12 BUN 25 H Creatinine 5.10 H Est GFR ( Amer) 10 L Est GFR (Non-Af Amer) 8 L Glucose 104 Calcium 8.8 Stool Occult Blood POSITIVE 10/21/16 11:11 WBC 9.9 RBC 3.56 L Hgb 10.2 L Hct 30.4 L MCV 85 MCH 28.5 MCHC 33.5 RDW 17.6 H Plt Count 271 Seg Neutrophils % 74.0 Lymphocytes % 11.6 L Monocytes % 12.3 Eosinophils % 1.2 Basophils % 0.9 Absolute Neutrophils 7.4 Absolute Lymphocytes 1.2 Absolute Monocytes 1.2 Absolute Eosinophils 0.1 Absolute Basophils 0.1 Sodium Potassium Chloride Carbon Dioxide Anion Gap BUN Creatinine Est GFR ( Amer) Est GFR (Non-Af Amer) Glucose Calcium Stool Occult Blood 10/11/16 10/11/16 10/11/16 04:06 04:06 10:43 Creatine Kinase < 20 L < 20 L Troponin I 0.029 10/11/16 10/14/16 10/15/16 10:43 06:48 06:06 Creatine Kinase Troponin I 0.023 0.035 0.021 Impressions: Knee X-Ray 10/10/16 16:27 IMPRESSION: NO RADIOGRAPHIC EVIDENCE OF ACUTE INJURY. Hip/Pelvis X-Ray 10/13/16 09:47 IMPRESSION: SATISFACTORY POSTOPERATIVE RIGHT HIP. Chest X-Ray 10/14/16 08:00 IMPRESSION: Stable chest. Findings as above. KUB X-Ray 10/20/16 00:00 IMPRESSION: NO RADIOGRAPHIC EVIDENCE FOR ACUTE ABDOMINAL DISEASE. Esophagus X-Ray 10/21/16 00:00 IMPRESSION: Disorganized peristalsis of the esophagus with prominent tertiary contractions Patient is a small hiatal hernia, with a long segment peptic narrowing of the distal esophagus. This finding, along with disorganized esophageal contraction , impeded passage of the barium tablet into the stomach fundus. Small hiatal hernia with gastroesophageal reflux Assessment & Plan - Diagnosis (1) End-stage renal disease on hemodialysis Is this a current diagnosis for this admission?: YesPlan: We will do dialysis today for 3 hours, using the patient's AV fistula, with 3 potassium bath, blood flow rate of 400 mL per minute, dialysate flow rate of 600 mL per minute, ultrafiltration 2-2.5 L, no heparin and no Procrit during dialysis. Patient tolerated dialysis without any problems today. (2) Hypertension Is this a current diagnosis for this admission?: YesPlan: Continue current blood pressure medications. Monitor blood pressure and if it persistently elevated, blood pressure medications may need to be adjusted. (3) Closed right hip fracture Qualifiers: Encounter type: subsequent encounter Is this a current diagnosis for this admission?: YesPlan: Status post right hip hemiarthroplasty 10/13/[address] Neff. (4) Urinary tract infection Qualifiers: Hematuria presence: without hematuria Is this a current diagnosis for this admission?: YesPlan: Urine culture showed positive for Arina which is likely a colonizer. I don't think she needs antibiotics. (5) Anemia due to blood loss Is this a current diagnosis for this admission?: YesPlan: Patient was transfused 2 units of packed RBC during dialysis last Friday. She does not need Procrit today. (6) Dysphagia Is this a current diagnosis for this admission?: Yes - Time Time with patient: 15-25 minutes
--- NOTE | 2016-10-21 20:35 | PDOC PROGRESS REPORT ---
Subjective Progress Note for:: 10/21/16 Subjective:: The barium study show 5-7 cm long segment of distal esophageal narrowing suspicious for peptic stricture Physical Exam Vital Signs: Temp Pulse Resp BP Pulse Ox 97.8 F 81 14 169/72 H 100 10/21/16 16:30 10/21/16 16:30 10/21/16 16:30 10/21/16 16:30 10/21/16 16:30 Intake & Output 10/20/16 10/21/16 10/22/16 06:59 06:59 06:59 Intake Total 60 390 Balance 60 390 Weight 76.9 kg 75.9 kg General appearance: PRESENT: no acute distress Eye exam: PRESENT: PERRLA Respiratory exam: PRESENT: clear to auscultation kennedi Cardiovascular exam: PRESENT: +S1, +S2 Results Laboratory Results: 10/21/16 11:11 10/21/16 05:18 10/21/16 10/21/16 10/21/16 05:18 05:18 08:40 WBC 8.5 RBC 3.42 L Hgb 9.8 L Hct 28.8 L MCV 84 MCH 28.7 MCHC 34.1 RDW 17.7 H Plt Count 270 Seg Neutrophils % 67.5 Lymphocytes % 15.9 Monocytes % 14.4 H Eosinophils % 1.5 Basophils % 0.7 Absolute Neutrophils 5.7 Absolute Lymphocytes 1.4 Absolute Monocytes 1.2 Absolute Eosinophils 0.1 Absolute Basophils 0.1 Sodium 140.6 Potassium 3.6 Chloride 101 Carbon Dioxide 28 Anion Gap 12 BUN 25 H Creatinine 5.10 H Est GFR ( Amer) 10 L Est GFR (Non-Af Amer) 8 L Glucose 104 Calcium 8.8 Stool Occult Blood POSITIVE 10/21/16 11:11 WBC 9.9 RBC 3.56 L Hgb 10.2 L Hct 30.4 L MCV 85 MCH 28.5 MCHC 33.5 RDW 17.6 H Plt Count 271 Seg Neutrophils % 74.0 Lymphocytes % 11.6 L Monocytes % 12.3 Eosinophils % 1.2 Basophils % 0.9 Absolute Neutrophils 7.4 Absolute Lymphocytes 1.2 Absolute Monocytes 1.2 Absolute Eosinophils 0.1 Absolute Basophils 0.1 Sodium Potassium Chloride Carbon Dioxide Anion Gap BUN Creatinine Est GFR ( Amer) Est GFR (Non-Af Amer) Glucose Calcium Stool Occult Blood 10/11/16 10/11/1616 04:06 04:06 10:43 Creatine Kinase < 20 L < 20 L Troponin I 0.029 10/11/16 10/14/16 10/15/16 10:43 06:48 06:06 Creatine Kinase Troponin I 0.023 0.035 0.021 Impressions: Knee X-Ray 10/10/16 16:27 IMPRESSION: NO RADIOGRAPHIC EVIDENCE OF ACUTE INJURY. Hip/Pelvis X-Ray 10/13/16 09:47 IMPRESSION: SATISFACTORY POSTOPERATIVE RIGHT HIP. Chest X-Ray 10/14/16 08:00 IMPRESSION: Stable chest. Findings as above. KUB X-Ray 10/20/16 00:00 IMPRESSION: NO RADIOGRAPHIC EVIDENCE FOR ACUTE ABDOMINAL DISEASE. Esophagus X-Ray 10/21/16 00:00 IMPRESSION: Disorganized peristalsis of the esophagus with prominent tertiary contractions Patient is a small hiatal hernia, with a long segment peptic narrowing of the distal esophagus. This finding, along with disorganized esophageal contraction , impeded passage of the barium tablet into the stomach fundus. Small hiatal hernia with gastroesophageal reflux Assessment & Plan - Diagnosis (1) Closed right hip fracture Qualifiers: Encounter type: subsequent encounter Is this a current diagnosis for this admission?: Yes (2) End-stage renal disease on hemodialysis Is this a current diagnosis for this admission?: Yes (3) Vomiting Qualifiers: Vomiting type: unspecified Vomiting Intractability: unspecified Nausea presence: unspecified Qualified Code(s): R11.10 - Vomiting, unspecified (4) Esophageal stricture Is this a current diagnosis for this admission?: YesPlan: GI consultation ordered
[2016-10-21] MEDS: ATORVASTATIN CALCIUM 20 MG TABLET PO SCH (21:29)
[2016-10-21] MEDS: INSULIN DETEMIR 100 UNIT/ML 3 ML PEN SUBCUT SCH (21:29)
[2016-10-22] MEDS: ACETAMINOPHEN 325 MG TABLET PO PRN (06:13)
[2016-10-22] MEDS: FOLIC ACID/VITAMIN B COMP W-C CAPSULE PO SCH (09:46)
[2016-10-22] MEDS: MUPIROCIN CALCIUM 2% CREAM 15 GM TP SCH ×2 (09:46→19:43)
[2016-10-22] MEDS: CARVEDILOL 12.5 MG TABLET PO SCH ×2 (09:46→19:42)
[2016-10-22] MEDS: CITALOPRAM HYDROBROMIDE 20 MG TABLET PO SCH (09:46)
[2016-10-22] MEDS: SITAGLIPTIN PHOSPHATE 25 MG TABLET PO SCH (09:47)
[2016-10-22] MEDS: BUDESONIDE/FORMOTEROL 160-4.5 MCG 60 PUFF/6 GM MDI IH SCH ×2 (09:47→19:43)
[2016-10-22] MEDS ORDERED: NALOXONE HCL INJ/PF 0.4 MG/1 ML SDV ONE (16:34)
[2016-10-22] MEDS ORDERED: EPINEPHRINE INJ 1 MG/10 ML DISP.SYRIN ONE (16:35)
[2016-10-22] MEDS ORDERED: FLUMAZENIL INJ 0.5 MG/5 ML VIAL IV ONE (16:35)
[2016-10-22] MEDS ORDERED: FENTANYL CITRATE INJ/PF 100 MCG/2 ML AMPUL ONE (16:35)
[2016-10-22] MEDS ORDERED: PROMETHAZINE HCL INJ 25 MG/1 ML VIAL ONE (16:35)
[2016-10-22] MEDS ORDERED: GLUCAGON,HUMAN RECOMB 1 MG INJ ONE (16:36)
[2016-10-22] MEDS: MIDAZOLAM 2 MG/2 ML INJ ONE ×2 (17:33→17:41)
--- NOTE | 2016-10-22 18:02 | PDOC CONSULTATION ---
Consultation Consult Date: 10/21/16 History of Present Illness Admission Date/PCP: 10/10/16 22:09 ALONDRA PHILLIPS, History of Present Illness: This is an 86-year-old lady who has been in the hospital for the last 11 days with multiple medical lesions including vomiting and end-stage renal disease. Consultation was requested for an abnormal barium swallow that showed a 5-7 cm segment of distal esophageal narrowing. Patient has been vomiting off and on mostly after eating. On further questioning she denies dysphagia. Her history may not be as reliable due to her dementia. Past Medical History Cardiac Medical History: Reports: Congestive Heart Failure, Coronary Artery Disease, Hyperlipidema, Hypertension - on meds Denies: Atrial Fibrillation, Myocardial Infarction, Pulmonary Embolism Pulmonary Medical History: Reports: Asthma - inhalers, Bronchitis - hx of, Chronic Obstructive Pulmonary Disease (COPD), Pneumonia - hx of, Sleep Apnea Denies: Respiratory Failure, Tuberculosis Neurological Medical History: Denies: Seizures Endocrine Medical History: Reports: Diabetes Mellitus Type 2 Denies: Diabetes Mellitus Type 1 Renal/ Medical History: Reports: End Stage Renal Disease - End-stage renal disease on maintenance hemodialysis Malignancy Medical History: Denies: Lung Cancer GI Medical History: Denies: Gastroesophageal Reflux Disease, Hiatal Hernia Musculoskeltal Medical History: Reports: 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 Denies: Fibromyalgia Psychiatric Medical History: Reports: Dementia Denies: Depression Hematology: Reports: Anemia - hx of Infectious Medical History: Reports: Methicillin-Resistant Staph Aureus Past Surgical History Past Surgical History: Reports: Cardiac Catheterization - cardiac stent 2010, Coronary Stent, Orthopedic Surgery - Back surgery, Vascular Surgery - Fistula to the right arm for dialysis Denies: Amputation, Hysterectomy, Pacemaker Social History Lives with: Family Smoking Status: Never Smoker Frequency of Alcohol Use: None Hx Recreational Drug Use: No Drugs: None Hx Prescription Drug Abuse: No - Advance Directive Resuscitation Status: Full Code Family History Family History: Other - Unable to obtain due to dementia Parental Family History Reviewed: No Children Family History Reviewed: NA Sibling(s) Family History Reviewed.: NA Medication/Allergy Home Medications: Acetaminophen [Tylenol Arthritis 650 mg Tablet] 1 tab PO Q6 PRN 06/11/14 Albuterol Sulfate [Proair HFA] 2 puff PO Q4H 06/11/14 Aspirin [Ecotrin] 81 mg PO DAILY 06/11/14 Carvedilol [Coreg] 2.5 tab PO BID 06/11/14 Ferrous Sulfate [Iron Supplement] 1 tab PO BID 06/11/14 Fexofenadine HCl [Dbei] 180 mg PO DAILY 06/11/14 Insulin Aspart [Novolog Flexpen] 5 units SUBCUT AC 06/11/14 Insulin Detemir [Levemir Flextouch] 10 units SUBCUT QHS 06/11/14 Insulin Detemir [Levemir Flextouch] 30 units SUBCUT QAM 06/11/14 Linagliptin [Tradjenta] 1 tab PO DAILY 06/11/14 Omeprazole 20 mg PO DAILY 06/11/14 Azelastine/Fluticasone [Dymista Nasal [place]] 1 spray NS BID 10/17/15 B Complex & C No.20/Folic Acid [Renal Caps Softgel] 1 mg PO DAILY 10/17/15 Epoetin Johnathan [Procrit Inj 20,000 Unit/1 ml Vial (Renal)] 10,000 unit IV .DIALYSIS PRN #0 ml 10/25/15 Furosemide [Lasix 40 mg Tablet] 40 mg PO BID #60 tablet 10/25/15 Docusate Sodium [Stool Softener] 100 mg PO DAILY 11/17/15 Mirtazapine 7.5 mg PO QHS 11/17/15 Atorvastatin Calcium [Lipitor 20 mg Tablet] 20 mg PO QHS 07/20/16 Citalopram Hydrobromide [Celexa 20 mg Tablet] 20 mg PO DAILY 07/20/16 Dronabinol [Marinol] 5 mg PO BID 07/20/16 Budesonide/Formoterol Fumarate [Symbicort HFA 160-4.5 mcg Inhaler 6 gm] 60 puff IH PRN PRN 08/26/16 Guaifenesin/Dextromethorphan [Tussin Dm Cough & Chest Liquid] 237 ml PO PRN PRN 08/26/16 Brimonidine Tartrate [Alphagan P] 1 drop BTH_EYE BID 10/13/16 Timolol Maleate [Timoptic] 1 drop OP BID 10/13/16 Allergies/Adverse Reactions: ciprofloxacin [Ciprofloxacin] Allergy (Severe, Verified 08/23/16 20:22) rash sulfamethoxazole [Sulfamethoxazole] Allergy (Unknown, Verified 08/23/16 20:22) rash Physical Exam Vital Signs: Temp Pulse Resp BP Pulse Ox 98.7 F 76 17 173/78 H 94 10/22/16 15:55 10/22/16 17:20 10/22/16 17:20 10/22/16 17:20 10/22/16 17:20 Intake & Output 10/21/16 10/22/16 10/23/16 06:59 06:59 06:59 Intake Total 390 240 150 Output Total 2400 Balance 390 -2160 150 Weight 75.9 kg 75.9 kg Exam: General: Patient is alert and looks well. HEENT: There is some pallor but no jaundice. PERRLA. Oropharynx normal Respiratory: Kyphosis. No respiratory distress. Chest wall palpitation was unremarkable. Breath sounds were normal Cardiovascular: Heart sounds 1 and 2 normal with no murmurs. Abdominal: Not distended. Soft and nontender. Liver and spleen not palpable. No ascites demonstrated. Bowel sounds active. Rectal examination was deferred. Extremities: AV shunt in the left forearm Neurological: Alert and oriented x4. Grossly nonfocal. Normal speech Skin: No significant rash Results Laboratory Results: 10/21/16 11:11 10/21/16 05:18 10/19/16 18:40 Stool - Stool - Final 10/19/16 18:40 Stool - Stool Stool Culture - Final C.albicans/C.dubliniensis 10/11/16 10/11/16 10/11/16 04:06 04:06 10:43 Creatine Kinase < 20 L < 20 L Troponin I 0.029 10/11/16 10/14/16 10/15/16 10:43 06:48 06:06 Creatine Kinase Troponin I 0.023 0.035 0.021 Impressions: Knee X-Ray 10/10/16 16:27 IMPRESSION: NO RADIOGRAPHIC EVIDENCE OF ACUTE INJURY. Hip/Pelvis X-Ray 10/13/16 09:47 IMPRESSION: SATISFACTORY POSTOPERATIVE RIGHT HIP. Chest X-Ray 10/14/16 08:00 IMPRESSION: Stable chest. Findings as above. KUB X-Ray 10/20/16 00:00 IMPRESSION: NO RADIOGRAPHIC EVIDENCE FOR ACUTE ABDOMINAL DISEASE. Esophagus X-Ray 10/21/16 00:00 IMPRESSION: Disorganized peristalsis of the esophagus with prominent tertiary contractions Patient is a small hiatal hernia, with a long segment peptic narrowing of the distal esophagus. This finding, along with disorganized esophageal contraction , impeded passage of the barium tablet into the stomach fundus. Small hiatal hernia with gastroesophageal reflux Assessment & Plan - Diagnosis (1) Esophageal stricture Is this a current diagnosis for this admission?: YesPlan: Her barium swallow does suggest a stricture or neoplasm. She will undergo an EGD. (2) Anemia due to blood loss Is this a current diagnosis for this admission?: YesPlan: Most likely related to her chronic medical illnesses (3) End-stage renal disease on hemodialysis Is this a current diagnosis for this admission?: Yes (4) Chronic kidney disease (CKD), stage V Is this a current diagnosis for this admission?: Yes
--- NOTE | 2016-10-22 18:04 | Operative Report ---
Operative Report DATE OF SURGERY: 10/22/16 Operative Report: Pre-op diagnosis: Abnormal barium swallow Post-op diagnosis: Gastritis Surgery: Esophagogastroduodenoscopy with biopsy Medications: Versed 2 mg Fentanyl 25 mcg IV push Tissue removed: Antral biopsy for pathology Procedure: After informed consent obtained from patient, the throat was sprayed with [place] and conscious sedation was achieved. The upper endoscope was inserted into the esophagus under direct vision and advanced into the stomach. The duodenum was entered and examined to the second part. Endoscope was then slowly pulled out of the patient as the mucosa was examined into details. Patient tolerated procedure well. Findings Esophagus: Normal Z-line at: 38 cm Antrum: Mild erythema with atrophy. Biopsy was taken Body: Normal Fundus: Normal Duodenum first part: Normal Duodenum second part: Normal Plan: Await pathology OPERATION: .
--- NOTE | 2016-10-22 19:30 | PDOC PROGRESS REPORT ---
Subjective Progress Note for:: 10/22/16 Subjective:: Barium study suggest stricture, EGD was done and it was normal esophagus Physical Exam Vital Signs: Temp Pulse Resp BP Pulse Ox 98.7 F 72 18 180/51 H 96 10/22/16 15:55 10/22/16 18:15 10/22/16 18:15 10/22/16 18:15 10/22/16 18:15 Intake & Output 10/21/16 10/22/16 10/23/16 06:59 06:59 06:59 Intake Total 390 240 150 Output Total 2400 Balance 390 -2160 150 Weight 75.9 kg 75.9 kg General appearance: PRESENT: no acute distress Eye exam: PRESENT: PERRLA Respiratory exam: PRESENT: clear to auscultation kennedi Cardiovascular exam: PRESENT: +S1, +S2 Results Laboratory Results: 10/21/16 11:11 10/21/16 05:18 10/19/16 18:40 Stool - Stool - Final 10/19/16 18:40 Stool - Stool Stool Culture - Final C.albicans/C.dubliniensis 10/11/16 10/11/16 10/11/16 04:06 04:06 10:43 Creatine Kinase < 20 L < 20 L Troponin I 0.029 10/11/16 10/14/16 10/15/16 10:43 06:48 06:06 Creatine Kinase Troponin I 0.023 0.035 0.021 Impressions: Knee X-Ray 10/10/16 16:27 IMPRESSION: NO RADIOGRAPHIC EVIDENCE OF ACUTE INJURY. Hip/Pelvis X-Ray 10/13/16 09:47 IMPRESSION: SATISFACTORY POSTOPERATIVE RIGHT HIP. Chest X-Ray 10/14/16 08:00 IMPRESSION: Stable chest. Findings as above. KUB X-Ray 10/20/16 00:00 IMPRESSION: NO RADIOGRAPHIC EVIDENCE FOR ACUTE ABDOMINAL DISEASE. Esophagus X-Ray 10/21/16 00:00 IMPRESSION: Disorganized peristalsis of the esophagus with prominent tertiary contractions Patient is a small hiatal hernia, with a long segment peptic narrowing of the distal esophagus. This finding, along with disorganized esophageal contraction , impeded passage of the barium tablet into the stomach fundus. Small hiatal hernia with gastroesophageal reflux Assessment & Plan - Diagnosis (1) Closed right hip fracture Qualifiers: Encounter type: subsequent encounter Is this a current diagnosis for this admission?: Yes (2) End-stage renal disease on hemodialysis Is this a current diagnosis for this admission?: Yes (3) Vomiting Qualifiers: Vomiting type: unspecified Vomiting Intractability: unspecified Nausea presence: unspecified Qualified Code(s): R11.10 - Vomiting, unspecified (4) Esophageal stricture Is this a current diagnosis for this admission?: Yes
[2016-10-22] MEDS: ATORVASTATIN CALCIUM 20 MG TABLET PO SCH (22:50)
[2016-10-22] MEDS: INSULIN DETEMIR 100 UNIT/ML 3 ML PEN SUBCUT SCH (22:54)
[2016-10-23 07:49] LABS: ANION GAP 6 (5-19); BLOOD UREA NITROGEN 19 mg/dL (7-20); CALCIUM 8.5 mg/dL (8.4-10.2); CARBON DIOXIDE 34 mmol/L (22-30); CHLORIDE 99 mmol/L (98-107); CREATININE RESULT 4.16 mg/dL (0.52-1.25); GLUCOSE 113 mg/dL (75-110); POTASSIUM 3.7 mmol/L (3.6-5.0); SODIUM 139.3 mmol/L (137-145)
[2016-10-23 08:39] LABS: HEMOGLOBIN 10.3 g/dL (12.0-15.5); HGB HCT DIFFERENCE -0.1; RED BLOOD COUNT 3.67 10^6/uL (3.72-5.28); WHITE BLOOD COUNT 6.3 10^3/uL (4.0-10.5)
[2016-10-23 08:40] LABS: MEAN CORPUSCULAR HEMOGLOBIN 28.1 pg (27.0-33.4); MEAN CORPUSCULAR HGB CONC 33.2 g/dL (32.0-36.0); MEAN CORPUSCULAR VOLUME 85 fl (80-97); RED CELL DISTRIBUTION WIDTH 17.9 % (11.5-14.0)
--- NOTE | 2016-10-23 14:55 | PDOC PROGRESS REPORT ---
Subjective Progress Note for:: 10/23/16 Subjective:: I saw the patient during dialysis at around 8:30 AM this morning. She was still sleepy but arousable at that time. She clotted her dialyzer so we needed to restart with new dialysis system. She could've lost minimal amount of blood because of that. Her blood pressure is still somewhat elevated. She continues to have poor oral intake. EGD was done yesterday which is virtually normal. She otherwise tolerated dialysis without any other complications aside from one episode of clotting. Physical Exam Vital Signs: Temp Pulse Resp BP Pulse Ox 98.1 F 100 20 157/55 H 98 10/23/16 08:00 10/23/16 08:00 10/23/16 08:00 10/23/16 08:00 10/23/16 08:00 Intake & Output 10/22/16 10/23/16 10/24/16 06:59 06:59 06:59 Intake Total 240 270 Output Total 2400 Balance -2160 270 Weight 75.9 kg 77.1 kg Vital signs during dialysis while I was seeing her this morning: Blood pressure of 175/76, pulse rate of 74, blood flow rate of 350 mL per minute, dialysate flow rate of 600 minimal per minute. Exam: General appearance: PRESENT: no acute distress, cooperative, well-developed, well-nourished Head exam: PRESENT: atraumatic, normocephalic Eye exam: PRESENT: conjunctiva pink, PERRLA. ABSENT: scleral icterus Neck exam: ABSENT: JVD Respiratory exam: PRESENT: Diminished breath sounds. ABSENT: crackles, rales, rhonchi, unlabored, wheezes Cardiovascular exam: PRESENT: Regular rate rhythm -+S1, +S2. ABSENT: diastolic murmur, systolic murmur GI/Abdominal exam: PRESENT: normal bowel sounds, soft. ABSENT: guarding, mass, tenderness Extremities exam: ABSENT: No edema Neurological exam: PRESENT: alert, awake, confused due to dementia Skin exam: PRESENT: dry, warm, Results Laboratory Results: 10/23/16 06:45 10/23/16 06:45 10/23/16 10/23/16 06:45 06:45 WBC 6.3 RBC 3.67 L Hgb 10.3 L Hct 31.0 L MCV 85 MCH 28.1 MCHC 33.2 RDW 17.9 H Plt Count 310 Sodium 139.3 Potassium 3.7 Chloride 99 Carbon Dioxide 34 H Anion Gap 6 BUN 19 Creatinine 4.16 H Est GFR ( Amer) 12 L Est GFR (Non-Af Amer) 10 L Glucose 113 H Calcium 8.5 10/11/16 10/11/16 10/11/16 04:06 04:06 10:43 Creatine Kinase < 20 L < 20 L Troponin I 0.029 10/11/16 10/14/16 10/15/16 10:43 06:48 06:06 Creatine Kinase Troponin I 0.023 0.035 0.021 Impressions: Knee X-Ray 10/10/16 16:27 IMPRESSION: NO RADIOGRAPHIC EVIDENCE OF ACUTE INJURY. Hip/Pelvis X-Ray 10/13/16 09:47 IMPRESSION: SATISFACTORY POSTOPERATIVE RIGHT HIP. Chest X-Ray 10/14/16 08:00 IMPRESSION: Stable chest. Findings as above. KUB X-Ray 10/20/16 00:00 IMPRESSION: NO RADIOGRAPHIC EVIDENCE FOR ACUTE ABDOMINAL DISEASE. Esophagus X-Ray 10/21/16 00:00 IMPRESSION: Disorganized peristalsis of the esophagus with prominent tertiary contractions Patient is a small hiatal hernia, with a long segment peptic narrowing of the distal esophagus. This finding, along with disorganized esophageal contraction , impeded passage of the barium tablet into the stomach fundus. Small hiatal hernia with gastroesophageal reflux Assessment & Plan - Diagnosis (1) End-stage renal disease on hemodialysis Is this a current diagnosis for this admission?: YesPlan: We did dialysis today for 3 hours, using the patient's AV fistula, with 3 potassium bath, blood flow rate of 350 mL per minute, dialysate flow rate of 600 mL per minute, ultrafiltration 1-2 L, no heparin and no Procrit during dialysis. Patient tolerated dialysis today. The dialyzer was changed after clotting. We'll continue to support and supervise dialysis while here in the hospital. (2) Hypertension Is this a current diagnosis for this admission?: YesPlan: Continue current blood pressure medications. Monitor blood pressure and if it persistently elevated, I increased her Coreg last night. (3) Closed right hip fracture Qualifiers: Encounter type: subsequent encounter Is this a current diagnosis for this admission?: YesPlan: Status post right hip hemiarthroplasty 10/13/[address] Neff. On physical therapy currently awaiting possible placement versus home physical therapy. (4) Urinary tract infection Qualifiers: Hematuria presence: without hematuria Is this a current diagnosis for this admission?: YesPlan: Urine culture showed positive for Arina which is likely a colonizer. I don't think she needs antibiotics. (5) Anemia due to blood loss Is this a current diagnosis for this admission?: YesPlan: Patient was transfused 2 units of packed RBC during dialysis last week , Friday. She does not need Procrit today. We will recheck hemoglobin next time since she had minimal blood loss today due to clotting. (6) Dysphagia Is this a current diagnosis for this admission?: YesPlan: Barium swallow showed diffuse esophageal spasm but EGD seems to be almost normal. - Notes Notes: Patient awaiting placement or home therapy. - Time Time with patient: 15-25 minutes
[2016-10-23] MEDS: CARVEDILOL 12.5 MG TABLET PO SCH ×2 (18:41→18:48)
[2016-10-23] MEDS: MUPIROCIN CALCIUM 2% CREAM 15 GM TP SCH ×2 (18:43→20:46)
[2016-10-23] MEDS: BUDESONIDE/FORMOTEROL 160-4.5 MCG 60 PUFF/6 GM MDI IH SCH (18:44)
[2016-10-23] MEDS: CITALOPRAM HYDROBROMIDE 20 MG TABLET PO SCH (18:46)
[2016-10-23] MEDS: FOLIC ACID/VITAMIN B COMP W-C CAPSULE PO SCH (18:46)
[2016-10-23] MEDS: SITAGLIPTIN PHOSPHATE 25 MG TABLET PO SCH (18:47)
--- NOTE | 2016-10-23 19:40 | PDOC DISCHARGE SUMMARY ---
General - Admit/Disc Date/PCP Admission Date/Primary Care Provider: 10/10/16 22:09 ALONDRA PHILLIPS, Discharge Date: 10/23/16 - Discharge Diagnosis (1) Closed right hip fracture Is this a current diagnosis for this admission?: Yes (2) End-stage renal disease on hemodialysis Is this a current diagnosis for this admission?: Yes (3) Vomiting Is this a current diagnosis for this admission?: Yes (4) Acute gastritis without bleeding Is this a current diagnosis for this admission?: Yes (5) Anemia due to blood loss Is this a current diagnosis for this admission?: Yes (6) Acute delirium Is this a current diagnosis for this admission?: Yes - Additional Information Resuscitation Status: Full Code Home Medications: Acetaminophen [Tylenol Arthritis 650 mg Tablet] 1 tab PO Q6 PRN 06/11/14 Albuterol Sulfate [Proair HFA] 2 puff PO Q4H 06/11/14 Aspirin [Ecotrin] 81 mg PO DAILY 06/11/14 Carvedilol [Coreg] 2.5 tab PO BID 06/11/14 Ferrous Sulfate [Iron Supplement] 1 tab PO BID 06/11/14 Fexofenadine HCl [Debi] 180 mg PO DAILY 06/11/14 Insulin Aspart [Novolog Flexpen] 5 units SUBCUT AC 06/11/14 Insulin Detemir [Levemir Flextouch] 10 units SUBCUT QHS 06/11/14 Insulin Detemir [Levemir Flextouch] 30 units SUBCUT QAM 06/11/14 Linagliptin [Tradjenta] 1 tab PO DAILY 06/11/14 Omeprazole 20 mg PO DAILY 06/11/14 Azelastine/Fluticasone [Dymista Nasal [place]] 1 spray NS BID 10/17/15 B Complex & C No.20/Folic Acid [Renal Caps Softgel] 1 mg PO DAILY 10/17/15 Epoetin Johnathan [Procrit Inj 20,000 Unit/1 ml Vial (Renal)] 10,000 unit IV .DIALYSIS PRN #0 ml 10/25/15 Furosemide [Lasix 40 mg Tablet] 40 mg PO BID #60 tablet 10/25/15 Docusate Sodium [Stool Softener] 100 mg PO DAILY 11/17/15 Mirtazapine 7.5 mg PO QHS 11/17/15 Atorvastatin Calcium [Lipitor 20 mg Tablet] 20 mg PO QHS 07/20/16 Citalopram Hydrobromide [Celexa 20 mg Tablet] 20 mg PO DAILY 07/20/16 Dronabinol [Marinol] 5 mg PO BID 07/20/16 Budesonide/Formoterol Fumarate [Symbicort HFA 160-4.5 mcg Inhaler 6 gm] 60 puff IH PRN PRN 08/26/16 Guaifenesin/Dextromethorphan [Tussin Dm Cough & Chest Liquid] 237 ml PO PRN PRN 08/26/16 Brimonidine Tartrate [Alphagan P] 1 drop BTH_EYE BID 10/13/16 Timolol Maleate [Timoptic] 1 drop OP BID 10/13/16 History of Present Illness History of Present Illness: Patient 86-year-old female with end-stage renal disease on maintenance hemodialysis, she was transferred from dialysis center to the emergency room because of pain in the right hip and she was unable to bear weight. She fell about 3 weeks ago and at that time she was seen in the office. X-rays were done and it was negative for any acute fracture. In the emergency room she was evaluated. X-rays were done and it showed fracture of the neck of the right femur, patient is to be admitted to be seen by orthopedic for surgery. Hospital Course Hospital Course: Patient was admitted on 10/10/2016, because of fracture right hip, she was seen by orthopedic and she had right hip hemiarthroplasty. Hospital course was complicated with anemia due to acute blood loss and she was transfused with 2 units of packed red blood cells. She also had episode of acute delirium, probably secondary to UTI, she was empirically treated with antibiotic and also lorazepam and Haldol. She had episode of vomiting after food intake in the hospital and barium swallow was done and it was abnormal, because of the abnormal barium swallow consultation was requested from GI and she had upper endoscopy done the esophagus was normal and she was found to have gastritis Physical Exam Vital Signs: Temp Pulse Resp BP Pulse Ox 98.1 F 76 20 157/55 H 98 10/23/16 16:00 10/23/16 16:00 10/23/16 16:00 10/23/16 16:00 10/23/16 16:00 Intake & Output 10/22/16 10/23/16 10/24/16 06:59 06:59 06:59 Intake Total 240 270 200 Output Total 2400 Balance -2160 270 200 Weight 75.9 kg 77.1 kg General appearance: PRESENT: no acute distress Eye exam: PRESENT: PERRLA Respiratory exam: PRESENT: clear to auscultation kennedi Cardiovascular exam: PRESENT: +S1, +S2 GI/Abdominal exam: PRESENT: soft Neurological exam: PRESENT: alert Results Laboratory Results: 10/23/16 06:45 10/23/16 06:45 10/23/16 10/23/16 06:45 06:45 WBC 6.3 RBC 3.67 L Hgb 10.3 L Hct 31.0 L MCV 85 MCH 28.1 MCHC 33.2 RDW 17.9 H Plt Count 310 Sodium 139.3 Potassium 3.7 Chloride 99 Carbon Dioxide 34 H Anion Gap 6 BUN 19 Creatinine 4.16 H Est GFR ( Amer) 12 L Est GFR (Non-Af Amer) 10 L Glucose 113 H Calcium 8.5 10/11/16 10/11/16 10/11/16 04:06 04:06 10:43 Creatine Kinase < 20 L < 20 L Troponin I 0.029 10/11/16 10/14/16 10/15/16 10:43 06:48 06:06 Creatine Kinase Troponin I 0.023 0.035 0.021 Impressions: Knee X-Ray 10/10/16 16:27 IMPRESSION: NO RADIOGRAPHIC EVIDENCE OF ACUTE INJURY. Hip/Pelvis X-Ray 10/13/16 09:47 IMPRESSION: SATISFACTORY POSTOPERATIVE RIGHT HIP. Chest X-Ray 10/14/16 08:00 IMPRESSION: Stable chest. Findings as above. KUB X-Ray 10/20/16 00:00 IMPRESSION: NO RADIOGRAPHIC EVIDENCE FOR ACUTE ABDOMINAL DISEASE. Esophagus X-Ray 10/21/16 00:00 IMPRESSION: Disorganized peristalsis of the esophagus with prominent tertiary contractions Patient is a small hiatal hernia, with a long segment peptic narrowing of the distal esophagus. This finding, along with disorganized esophageal contraction , impeded passage of the barium tablet into the stomach fundus. Small hiatal hernia with gastroesophageal reflux
[2016-10-23] MEDS: ATORVASTATIN CALCIUM 20 MG TABLET PO SCH (21:32)
[2016-10-23] MEDS: INSULIN DETEMIR 100 UNIT/ML 3 ML PEN SUBCUT SCH (21:33)
[2016-10-24] MEDS: CARVEDILOL 12.5 MG TABLET PO SCH (05:38)
[2016-10-24] MEDS: FOLIC ACID/VITAMIN B COMP W-C CAPSULE PO SCH (12:23)
[2016-10-24] MEDS: CITALOPRAM HYDROBROMIDE 20 MG TABLET PO SCH (12:24)
[2016-10-24] MEDS: MUPIROCIN CALCIUM 2% CREAM 15 GM TP SCH (12:24)
[2016-10-24] MEDS: BUDESONIDE/FORMOTEROL 160-4.5 MCG 60 PUFF/6 GM MDI IH SCH (12:25)
[2016-10-24] MEDS: SITAGLIPTIN PHOSPHATE 25 MG TABLET PO SCH (12:27)
[2016-10-24 16:47] VITALS: BP 147/60
[2016-10-27] MEDS ORDERED: CLONIDINE 0.3 MG/24 HR PATCH.TDWK TD SCH (10:00)
[2016-10-28] MEDS ORDERED: EPOETIN ALFA INJ 20000 UNIT/1 ML VIAL (RENAL) IV ONE (10:00)
== END 2016-10-24 18:30 | disposition home or self-care (01) | DRG 469 ==
LOC: ER 15:51 → EH 19:06 → UNDOADMIN 19:06 → EH 22:09 → 4S 22:45
PROVIDERS: ADMIT Internal Medicine; ATTEND Internal Medicine
PROC: 5A1D60Z (ICD-10-PCS; 2016-10-11)
PROC: 0SRR0JA Replacement of Right Hip Joint, Femoral Surface with Synthetic Substitute, Uncemented, Open Approach (ICD-10-PCS; principal; 2016-10-13 08:00)
PROC: 30233N1 Transfusion of Nonautologous Red Blood Cells into Peripheral Vein, Percutaneous Approach (ICD-10-PCS; 2016-10-16)
PROC: 0DB68ZX Excision of Stomach, Via Natural or Artificial Opening Endoscopic, Diagnostic (ICD-10-PCS; 2016-10-22)
DX: S72.001A Fracture of unspecified part of neck of right femur, initial encounter for closed fracture (principal); N18.6 End stage renal disease; I50.31 Acute diastolic (congestive) heart failure; D62 Acute posthemorrhagic anemia; N39.0 Urinary tract infection, site not specified; I13.2 Hypertensive heart and chronic kidney disease with heart failure and with stage 5 chronic kidney disease, or end stage renal disease; I45.2 Bifascicular block; N25.81 Secondary hyperparathyroidism of renal origin; W01.0XXA Fall on same level from slipping, tripping and stumbling without subsequent striking against object, initial encounter; E11.22 Type 2 diabetes mellitus with diabetic chronic kidney disease; K29.00 Acute gastritis without bleeding; K44.9 Diaphragmatic hernia without obstruction or gangrene; R31.9 Hematuria, unspecified; K21.9 Gastro-esophageal reflux disease without esophagitis; I25.10 Atherosclerotic heart disease of native coronary artery without angina pectoris; E78.5 Hyperlipidemia, unspecified; J45.909 Unspecified asthma, uncomplicated; J44.9 Chronic obstructive pulmonary disease, unspecified; F03.90 Unspecified dementia, unspecified severity, without behavioral disturbance, psychotic disturbance, mood disturbance, and anxiety; M13.89 Other specified arthritis, multiple sites; M40.209 Unspecified kyphosis, site unspecified; K22.2 Esophageal obstruction; K29.70 Gastritis, unspecified, without bleeding; B95.62 Methicillin resistant Staphylococcus aureus infection as the cause of diseases classified elsewhere; E66.01 Morbid (severe) obesity due to excess calories; D63.1 Anemia in chronic kidney disease; Z68.30 Body mass index [BMI] 30.0-30.9, adult; Z99.2 Dependence on renal dialysis; Z79.899 Other long term (current) drug therapy; Z86.14 Personal history of Methicillin resistant Staphylococcus aureus infection; Z88.2 Allergy status to sulfonamides; Z88.3 Allergy status to other anti-infective agents; Z79.82 Long term (current) use of aspirin; Z79.4 Long term (current) use of insulin; Z82.3 Family history of stroke; Z80.9 Family history of malignant neoplasm, unspecified; Z83.3 Family history of diabetes mellitus
CPT/HCPCS: 01210; 36415; 36430; 43239; 71010; 71020; 74000; 74220; 80048; 80053; 80061; 80076; 81001; 82140; 82150; 82272; 82550; 82962; 83036; 83690; 83735; 84439; 84443; 84484; 85025; 85027; 85610; 85730; 86850; 86900; 86901; 86920; 87040; 87045; 87086; 87205; 87493; 88305; 88311; 88342; 89055; 93005; 93010; 99285; C9290; G8978-GP; G8979-GP; J0171; J0696; J1200; J1610; J1644; J1741; J1815; J1940; J2060; J2250; J2270; J2310; J2550; J2704; J3010; J3370; J3490; J7050; J7060; J7120; P9016; Q0167; Q4081

== ENCOUNTER 2016-11-18 10:14 | Observation (INO) | payer MEDICARE, MEDICAID ==
--- NOTE | 2016-11-18 10:55 | ER Document Report ---
ED General - General Chief Complaint: General Weakness Stated Complaint: GENERAL WEAKNESS Mode of Arrival: Medic Information source: Relative - daughter, who cares for patient Cannot obtain history due to: Altered mental status Notes: This is an 86-year-old -[place] female with a history of end-stage renal disease on dialysis who arrives via EMS after her daughter states that she is not acting like herself this morning. Daughter states that last night the patient did have increased coughing and seems somewhat weaker all over than usual. This morning the daughter had difficulty getting the patient out of bed. The daughter states that normally the patient will assist with getting out of bed but today the patient would not assist at all. Also daughter states that even though patient is awake and will nod her head, she has not been able to get her to speak in response to questions morning. Daughter states that at baseline the patient will speak when asked a question. The last time she actually heard her talk was sometime last night before bed. Daughter reports no fevers or chills at home and no vomiting or diarrhea. Of note the patient is status post right hip fracture with operative repair about 1 month ago. She has been able to ambulate some with assistance and with a walker, prior to this episode today. TRAVEL OUTSIDE OF THE [place] IN LAST 30 DAYS: No - Related Data Allergies/Adverse Reactions: ciprofloxacin [Ciprofloxacin] Allergy (Severe, Verified 08/23/16 20:22) rash sulfamethoxazole [Sulfamethoxazole] Allergy (Unknown, Verified 08/23/16 20:22) rash Home Medications: Current Home Medications Acetaminophen [Tylenol Arthritis 650 mg Tablet] 650 mg PO Q6HP PRN 11/18/16 [ History] Albuterol Sulfate [Ventolin Hfa] 2 puff IH Q4HP PRN 11/18/16 [History] Aspirin [Aspirin 81 mg Chewable Tablet] 81 mg PO DAILY 11/18/16 [History] Brimonidine Tartrate [Alphagan P] 1 drop OU Q12 11/18/16 [History] Budesonide/Formoterol Fumarate [Symbicort Hfa 160-4.5 Mcg Inhaler 6 gm] 2 puff IH Q12 11/18/16 [History] Calcium Acetate [Phoslo 667 Mg Capsule] 667 mg PO MEALS 11/18/16 [History] Carvedilol [Coreg 12.5 mg Tablet] 37.5 mg PO Q12 11/18/16 [History] Cetirizine HCl [Cetirizine HCl 5 mg/5 mL] 10 mg PO DAILY 11/18/16 [History] Citalopram Hydrobromide [Celexa 20 mg Tablet] 20 mg PO DAILY 11/18/16 [History] Docusate Sodium [Colace 100 mg Capsule] 100 mg PO DAILY 11/18/16 [History] Epoetin Johnathan [Procrit] 20,000 unit IV TUTHSA@1000 11/18/16 [History] Fluticasone Propionate [Flonase Nasal [place] 50 Mcg/[place] 16 gm] 1 spray NAREB Q12 11/18/16 [History] Folic Acid/Vitamin B Comp W-C [Nephrocaps Multiple Vitamin Capsule] 1 cap PO DAILY 11/18/16 [History] Furosemide [Lasix 40 mg Tablet] 40 mg PO BID 11/18/16 [History] Guaifenesin/Dextromethorphan [Guaifenesin Dm Syrup] 10 ml PO Q4HP PRN 11/18/16 [ History] Insulin Aspart [Novolog Flexpen] 5 unit SUBCUT AC 11/18/16 [History] Insulin Detemir [Levemir Flextouch] 10 unit SQ QHS 11/18/16 [History] Insulin Detemir [Levemir Flextouch] 30 unit SQ QAM 11/18/16 [History] Linagliptin [Tradjenta] 5 mg PO DAILY 11/18/16 [History] Mirtazapine 7.5 mg PO QHS 11/18/16 [History] Omeprazole 20 mg PO DAILY 11/18/16 [History] Timolol Maleate 1 drop OU Q12 11/18/16 [History] Past Medical History - Social History Smoking Status: Unknown if Ever Smoked Family History: Other - Unable to obtain due to dementia - Past Medical History Cardiac Medical History: Reports: Hx Congestive Heart Failure, Hx Coronary Artery Disease, Hx Hypercholesterolemia, Hx Hypertension - on meds Denies: Hx Atrial Fibrillation, Hx Heart Attack, Hx Pulmonary Embolism Pulmonary Medical History: Reports: Hx Asthma - inhalers, Hx Bronchitis - hx of , Hx COPD, Hx Pneumonia - hx of, Hx Sleep Apnea Denies: Hx Respiratory Failure, Hx Tuberculosis Neurological Medical History: Denies: Hx Cerebrovascular Accident, Hx Seizures Endocrine Medical History: Reports: Hx Diabetes Mellitus Type 2. Denies: Hx Diabetes Mellitus Type 1 Renal/ Medical History: Reports: Hx End Stage Renal Disease - End-stage renal disease on maintenance hemodialysis Malignancy Medical History: Denies: Hx Lung Cancer GI Medical History: Denies: Hx Gastroesophageal Reflux Disease, Hx Hiatal Hernia Musculoskeltal Medical History: Reports Hx 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, Denies Hx Fibromyalgia, Denies Hx Muscular Dystrophy Psychiatric Medical History: Reports: Hx Dementia Denies: Hx Depression Traumatic Medical History: Denies: Hx Fractures Infectious Medical History: Reports: Hx MRSA Past Surgical History: Reports: Hx Cardiac Catheterization - cardiac stent 2010 , Hx Coronary Stent, Hx Orthopedic Surgery - Back surgery, Hx Vascular Surgery - Fistula to the right arm for dialysis. Denies: Hx Hysterectomy, Hx Pacemaker - Immunizations Immunizations up to date: Yes Hx Diphtheria, Pertussis, Tetanus Vaccination: Yes Hx Pneumococcal Vaccination: 10/13/09 Review of Systems - Review of Systems -: Yes ROS unobtainable due to patient's medical condition - pt unable to answer questions at this time Physical Exam - Vital signs Vitals: Resp Pulse Ox 22 H 92 11/18/16 10:33 11/18/16 10:33 - Notes Notes: PHYSICAL EXAMINATION: GENERAL: Well-appearing elderly female, well-nourished and in no acute distress. She smiles and nods her head. At one point, she was able to say "hi! ", but after that would not speak or answer my questions at all. HEAD: Atraumatic, normocephalic. EYES: Pupils equal round and reactive to light, extraocular movements intact, sclera anicteric, conjunctiva are normal. ENT: nares patent, oropharynx clear without exudates. Moist mucous membranes. NECK: Normal range of motion, supple without lymphadenopathy LUNGS: Breath sounds clear to auscultation bilaterally and equal. No wheezes rales or rhonchi. HEART: Regular rate and rhythm without murmurs ABDOMEN: Soft, nontender, normoactive bowel sounds. No guarding, no rebound. No masses appreciated. EXTREMITIES: no edema NEUROLOGICAL: Pt is not cooperative for a neuro exam, but she does move all 4 extremities spontaneously and has no obvious facial droop or focal deficit SKIN: Warm, Dry, normal turgor, no rashes or lesions noted. Course - Re-evaluation Re-evalutation: 11/18/16 13:22 Labs and radiology results reviewed in discussion with the daughter. There is no obvious focal abnormality seen on the head CT however the CT was limited by motion artifact. On the patient's chest x-ray there was no obvious acute change from prior however there is residual left sided effusion versus infiltrate. Also she has leukocyte esterase and white blood cells in her catheter urine sample. This reason she will be given IV antibiotics here in the emergency department and I have spoken with the patient's primary care physician Dr. Pierre who is in agreement with the plan and will admit the patient to the hospital. Plan was discussed in detail with the patient's daughter who is in agreement with the plan as well. All questions were answered. 11/18/16 22:24 - Vital Signs Vital signs: Temp Pulse Resp BP Pulse Ox 98.7 F 78 22 H 156/56 H 91 L 11/18/16 19:44 11/18/16 20:25 11/18/16 19:44 11/18/16 20:25 11/18/16 19:44 - Laboratory Result Diagrams: 11/18/16 10:40 11/18/16 10:40 Laboratory results interpreted by me: 11/18/16 11/18/16 11/18/16 10:40 10:40 11:46 RBC 3.34 L Hgb 9.7 L Hct 29.3 L RDW 21.7 H Sodium 135.7 L Creatinine 4.41 H Est GFR ( Amer) 11 L Est GFR (Non-Af Amer) 9 L Glucose 118 H Creatine Kinase < 20 L Albumin 2.5 L Urine Protein 100 H Urine Blood LARGE H Ur Leukocyte Esterase LARGE H - Diagnostic Test Radiology reviewed: Reports reviewed Discharge - Discharge Clinical Impression: Altered mental status, unspecified Qualifiers: Altered mental status type: unspecified Qualified Code(s): R41.82 - Altered mental status, unspecified Urinary tract infection Qualifiers: Urinary tract infection type: site unspecified Hematuria presence: without hematuria Qualified Code(s): N39.0 - Urinary tract infection, site not specified Pneumonia Qualifiers: Pneumonia type: due to unspecified organism Laterality: left Lung location: lower lobe of lung Qualified Code(s): J18.1 - Lobar pneumonia, unspecified organism Condition: Stable Disposition: ADMITTED INPATIENT Admitting Provider: [facility] Unit Admitted: Medical Floor
[2016-11-18 11:08] LABS: ABSOLUTE EOSINOPHILS # (AUTO) 0.1 10^3/uL (0.0-0.6); ABSOLUTE LYMPHOCYTES (AUTO) 1.1 10^3/uL (0.5-4.7); ABSOLUTE MONOCYTES (AUTO) 0.8 10^3/uL (0.1-1.4); ABSOLUTE NEUT (AUTO) 3.9 10^3/uL (1.7-8.2); BASOPHILS % (AUTO) 0.8 % (0-2); EOSINOPHILS % (AUTO) 1.5 % (0-6); HEMATOCRIT 29.3 % (36.0-47.0); HEMOGLOBIN 9.7 g/dL (12.0-15.5); HGB HCT DIFFERENCE -0.2; LYMPHOCYTES % (AUTO) 18.3 % (13-45); MEAN CORPUSCULAR HEMOGLOBIN 28.9 pg (27.0-33.4); MEAN CORPUSCULAR VOLUME 88 fl (80-97); MONOCYTES % (AUTO) 12.9 % (3-13); RED BLOOD COUNT 3.34 10^6/uL (3.72-5.28); RED CELL DISTRIBUTION WIDTH 21.7 % (11.5-14.0); SEGMENTED NEUTROPHILS % (AUTO) 66.5 % (42-78); WHITE BLOOD COUNT 5.9 10^3/uL (4.0-10.5)
[2016-11-18 11:09] LABS: PROTHROMBIN TIME 14.6 SEC (11.4-15.4)
[2016-11-18 11:10] LABS: PARTIAL THROMBOPLASTIN TIME 31.5 SEC (23.5-35.8)
[2016-11-18 11:24] LABS: ALANINE AMINOTRANSFERASE 27 U/L (9-52); ALBUMIN 2.5 g/dL (3.5-5.0); ALKALINE PHOSPHATASE 120 U/L (38-126); ANION GAP 8 (5-19); ASPARTATE AMINO TRANSFERASE 21 U/L (14-36); BILIRUBIN,TOTAL 0.8 mg/dL (0.2-1.3); BLOOD UREA NITROGEN 12 mg/dL (7-20); CARBON DIOXIDE 30 mmol/L (22-30); CHLORIDE 98 mmol/L (98-107); CREATININE RESULT 4.41 mg/dL (0.52-1.25); GLUCOSE 118 mg/dL (75-110); SODIUM 135.7 mmol/L (137-145); TOTAL PROTEIN 6.9 g/dL (6.3-8.2)
[2016-11-18 11:26] LABS: CREATINE KINASE < 20 U/L (30-135)
[2016-11-18 12:07] LABS: APPEARANCE,URINE SLIGHTLY-CLOUDY; BILIRUBIN,URINE NEGATIVE (NEGATIVE); GLUCOSE, URINE NEGATIVE (NEGATIVE); KETONES,URINE NEGATIVE (NEGATIVE); LEUKOCYTE ESTERASE,URINE LARGE (NEGATIVE); NITRITE,URINE NEGATIVE (NEGATIVE); PROTEIN,URINE 100 mg/dL (NEGATIVE); URINE SPECIFIC GRAVITY 1.008; UROBILINOGEN,URINE NEGATIVE mg/dL (<2.0)
[2016-11-18] MEDS ORDERED: AZITHROMYCIN INJ 500 MG VIAL IV ONE (12:07)
[2016-11-18] MEDS ORDERED: CEFTRIAXONE 1 GM/D5W RTU 50 ML IV ONE (12:07)
[2016-11-18] MEDS ORDERED: LABETALOL HCL INJ 20 MG/4 ML DISP.SYRIN IV ONE (13:14)
[2016-11-18] MEDS ORDERED: VANCOMYCIN HCL 1,000 MG in DEXTROSE 5%-WATER 250 ML IV SCH (18:00)
--- NOTE | 2016-11-18 18:14 | EKG REPORT ---
SEVERITY:- ABNORMAL ECG - SINUS RHYTHM INCOMPLETE RIGHT BUNDLE BRANCH BLOCK NONSPECIFIC ST-T CHANGES- INFERIOR LEADS : Confirmed by: Vincenzo Vasquez MD 18-Nov-2016 18:14:28
[2016-11-18] MEDS ORDERED: (PENDING PHARMACY ID) (Acetaminophen [Tylenol Arthritis 650 Mg Tablet] 650 MG) PO PRN (18:39)
[2016-11-18] MEDS ORDERED: (PENDING PHARMACY ID) (Brimonidine Tartrate [Alphagan P] 1 DROP) OU SCH (18:45)
[2016-11-18] MEDS ORDERED: (PENDING PHARMACY ID) (Linagliptin [Tradjenta] 5 MG) PO SCH (18:45)
[2016-11-18] MEDS ORDERED: ACETAMINOPHEN 325 MG TABLET PO PRN (18:58)
--- NOTE | 2016-11-18 18:58 | PDOC H&P ---
History of Present Illness Admission Date/PCP: 11/18/16 14:41 ALONDRA PHILLIPS, History of Present Illness: VAISHALI GODOY is a 86 year old female, she has end-stage renal disease on maintenance hemodialysis she was brought to the emergency room by her daughter because she said the patient is not acting like herself This morning. stated that last night patient did have increased coughing and she is somewhat weaker than usual, normally the patient we are cyst with getting out of bed but today the patient will not assist at all. The daughter also stated that though . patient is awake and we not had she has not been able to get to speak in response to questions asked This morning. She was just admitted in this hospital when she had a right hip fracture and she underwent open reduction internal fixation of the fracture about a month ago. In the emergency room. A chest x-ray was done it was x-ray showed a left basilar density that He had essentially unchanged from the previous chest x-ray, CT head was done it showed no hemorrhage, there is no acute change on the CT head. The urinalysis was grossly abnormal. it seems that she may have encephalopathy due to UTI Past Medical History Cardiac Medical History: Reports: Coronary Artery Disease, Hyperlipidema, Hypertension - on meds Pulmonary Medical History: Reports: Asthma - inhalers, Bronchitis - hx of, Chronic Obstructive Pulmonary Disease (COPD), Pneumonia - hx of, Sleep Apnea Endocrine Medical History: Reports: Diabetes Mellitus Type 2 Renal/ Medical History: Reports: End Stage Renal Disease - End-stage renal disease on maintenance hemodialysis Musculoskeltal Medical History: Reports: 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 Psychiatric Medical History: Reports: Dementia Hematology: Reports: Anemia - hx of Infectious Medical History: Reports: Methicillin-Resistant Staph Aureus Past Surgical History Past Surgical History: Reports: Cardiac Catheterization - cardiac stent 2010, Coronary Stent, Orthopedic Surgery - Back surgery, Vascular Surgery - Fistula to the right arm for dialysis Social History Information Source: Patient Smoking Status: Never Smoker Frequency of Alcohol Use: None Hx Recreational Drug Use: No Drugs: None Hx Prescription Drug Abuse: No - Advance Directive Resuscitation Status: Full Code Family History Family History: Other - Unable to obtain due to dementia Parental Family History Reviewed: Yes Children Family History Reviewed: Yes Sibling(s) Family History Reviewed.: Yes Medication/Allergy Home Medications: Acetaminophen [Tylenol Arthritis 650 mg Tablet] 650 mg PO Q6HP PRN 11/18/16 Albuterol Sulfate [Ventolin Hfa] 2 puff IH Q4HP PRN 11/18/16 Aspirin [Aspirin 81 mg Chewable Tablet] 81 mg PO DAILY 11/18/16 Brimonidine Tartrate [Alphagan P] 1 drop OU Q12 11/18/16 Budesonide/Formoterol Fumarate [Symbicort Hfa 160-4.5 Mcg Inhaler 6 gm] 2 puff IH Q12 11/18/16 Calcium Acetate [Phoslo 667 Mg Capsule] 667 mg PO MEALS 11/18/16 Carvedilol [Coreg 12.5 mg Tablet] 37.5 mg PO Q12 11/18/16 Cetirizine HCl [Cetirizine HCl 5 mg/5 mL] 10 mg PO DAILY 11/18/16 Citalopram Hydrobromide [Celexa 20 mg Tablet] 20 mg PO DAILY 11/18/16 Docusate Sodium [Colace 100 mg Capsule] 100 mg PO DAILY 11/18/16 Epoetin Johnathan [Procrit] 20,000 unit IV TUTHSA@1000 11/18/16 Fluticasone Propionate [Flonase Nasal [place] 50 Mcg/[place] 16 gm] 1 spray NAREB Q12 11/18/16 Folic Acid/Vitamin B Comp W-C [Nephrocaps Multiple Vitamin Capsule] 1 cap PO DAILY 11/18/16 Furosemide [Lasix 40 mg Tablet] 40 mg PO BID 11/18/16 Guaifenesin/Dextromethorphan [Guaifenesin Dm Syrup] 10 ml PO Q4HP PRN 11/18/16 Insulin Aspart [Novolog Flexpen] 5 unit SUBCUT AC 11/18/16 Insulin Detemir [Levemir Flextouch] 10 unit SQ QHS 11/18/16 Insulin Detemir [Levemir Flextouch] 30 unit SQ QAM 11/18/16 Linagliptin [Tradjenta] 5 mg PO DAILY 11/18/16 Mirtazapine 7.5 mg PO QHS 11/18/16 Omeprazole 20 mg PO DAILY 11/18/16 Timolol Maleate 1 drop OU Q12 11/18/16 Allergies/Adverse Reactions: ciprofloxacin [Ciprofloxacin] Allergy (Severe, Verified 08/23/16 20:22) rash sulfamethoxazole [Sulfamethoxazole] Allergy (Unknown, Verified 08/23/16 20:22) rash Review of Systems Constitutional: PRESENT: anorexia, fatigue Cardiovascular: ABSENT: as per HPI, chest pain, dyspnea on exertion, edema, orthropnea, palpitations, other Respiratory: PRESENT: cough Gastrointestinal: PRESENT: nausea Genitourinary: ABSENT: as per HPI, difficulty urinating, dysuria, hematuria, nocturia, other Neurological: PRESENT: confusion Psychiatric: PRESENT: depression Physical Exam Vital Signs: Temp Pulse Resp BP Pulse Ox 98.2 F 24 H 164/97 H 100 11/18/16 13:18 11/18/16 16:01 11/18/16 16:01 11/18/16 16:49 Intake & Output 11/17/16 11/18/16 11/19/16 06:59 06:59 06:59 Weight 79.832 kg General appearance: PRESENT: no acute distress Head exam: PRESENT: atraumatic, normocephalic Eye exam: PRESENT: PERRLA Neck exam: PRESENT: full ROM Respiratory exam: PRESENT: clear to auscultation kennedi Cardiovascular exam: PRESENT: RRR Vascular exam: PRESENT: normal capillary refill GI/Abdominal exam: PRESENT: normal bowel sounds, soft Rectal exam: PRESENT: deferred Neurological exam: PRESENT: alert, awake, other - Patient is confused Skin exam: PRESENT: dry, intact, warm Results Impressions: Chest X-Ray 11/18/16 10:52 IMPRESSION: No significant interval change. Findings as noted above Head CT 11/18/16 10:53 IMPRESSION: No obvious acute finding. Consider follow-up repeat head CT when the patient is more stable. Assessment & Plan - Diagnosis (1) Encephalopathy Is this a current diagnosis for this admission?: YesPlan: Patient have encephalopathy, most likely is from UTI, she is somewhat confused. There is disorientation to time, place and person. She will be empirically be treated for UTI with antibiotic (2) Urinary tract infection Qualifiers: Urinary tract infection type: site unspecified Hematuria presence: without hematuria Qualified Code(s): N39.0 - Urinary tract infection, site not specified Is this a current diagnosis for this admission?: YesPlan: The UA is grossly abnormal, urine culture result is pending (3) End-stage renal disease on hemodialysis Is this a current diagnosis for this admission?: YesPlan: Consultation will be requested from nephrology for hemodialysis while in the hospital
[2016-11-18] MEDS ORDERED: ALBUTEROL SULFATE HFA (90 MCG/PUFF) 200 PUFF/8.5 GM MDI IH PRN (18:59)
[2016-11-18] MEDS ORDERED: GUAIFENESIN/D-METHORPHAN (200-20 MG) SYRUP 10 ML PO PRN (19:10)
[2016-11-18] MEDS ORDERED: ALBUTEROL SULFATE HFA (90 MCG/PUFF) 8 GM MDI (1 MDI/ER DISP) IH PRN (20:00)
[2016-11-18] MEDS: HEPARIN SOD (PORCINE) 5,000 UNIT/ML 1 ML SYRINGE SUBCUT SCH (22:12)
[2016-11-18] MEDS: FUROSEMIDE 40 MG TABLET PO SCH (22:12)
[2016-11-18] MEDS: DOCUSATE SODIUM 100 MG CAPSULE PO SCH (22:12)
[2016-11-18] MEDS: BUDESONIDE/FORMOTEROL 160-4.5 MCG 60 PUFF/6 GM MDI IH SCH (22:14)
[2016-11-18] MEDS: TIMOLOL MALEATE 0.5% OPH SOLN 5 ML OU SCH (22:15)
[2016-11-18] MEDS: MIRTAZAPINE 15 MG TABLET PO SCH (22:16)
[2016-11-18] MEDS: CARVEDILOL 12.5 MG TABLET PO SCH (22:18)
[2016-11-18] MEDS: INSULIN DETEMIR 100 UNIT/ML 3 ML PEN SUBCUT SCH (22:19)
[2016-11-18] MEDS: FLUTICASONE NASAL SPRAY 50 MCG/SPRY 120 SPRAY/16 GM NASL SCH (22:30)
[2016-11-19] MEDS ORDERED: FUROSEMIDE 40 MG TABLET PO ONE (04:45)
[2016-11-19] MEDS: HEPARIN SOD (PORCINE) 5,000 UNIT/ML 1 ML SYRINGE SUBCUT SCH ×3 (05:34→23:01)
[2016-11-19] MEDS ORDERED: INSULIN REG, HUMAN 100 UNIT/ML 3 ML VIAL (PYX) SUBCUT SCH (08:00)
[2016-11-19 08:09] LABS: ABSOLUTE BASOPHILS # (AUTO) 0.1 10^3/uL (0.0-0.2); ABSOLUTE EOSINOPHILS # (AUTO) 0.1 10^3/uL (0.0-0.6); ABSOLUTE LYMPHOCYTES (AUTO) 0.9 10^3/uL (0.5-4.7); ABSOLUTE MONOCYTES (AUTO) 0.7 10^3/uL (0.1-1.4); ABSOLUTE NEUT (AUTO) 4.2 10^3/uL (1.7-8.2); BASOPHILS % (AUTO) 1.6 % (0-2); EOSINOPHILS % (AUTO) 1.3 % (0-6); HEMOGLOBIN 9.2 g/dL (12.0-15.5); HGB HCT DIFFERENCE -0.4; LYMPHOCYTES % (AUTO) 14.3 % (13-45); MEAN CORPUSCULAR HEMOGLOBIN 28.8 pg (27.0-33.4); MEAN CORPUSCULAR HGB CONC 32.8 g/dL (32.0-36.0); MEAN CORPUSCULAR VOLUME 88 fl (80-97); MONOCYTES % (AUTO) 12.1 % (3-13); RED BLOOD COUNT 3.19 10^6/uL (3.72-5.28); SEGMENTED NEUTROPHILS % (AUTO) 70.7 % (42-78)
[2016-11-19 08:24] LABS: ALANINE AMINOTRANSFERASE 23 U/L (9-52); ALBUMIN 2.9 g/dL (3.5-5.0); ALKALINE PHOSPHATASE 108 U/L (38-126); ANION GAP 9 (5-19); ASPARTATE AMINO TRANSFERASE 21 U/L (14-36); BILIRUBIN,TOTAL 0.7 mg/dL (0.2-1.3); BLOOD UREA NITROGEN 17 mg/dL (7-20); CARBON DIOXIDE 26 mmol/L (22-30); CHLORIDE 100 mmol/L (98-107); CREATININE RESULT 4.95 mg/dL (0.52-1.25); GLUCOSE 115 mg/dL (75-110); POTASSIUM 4.8 mmol/L (3.6-5.0); SODIUM 135.4 mmol/L (137-145); TOTAL PROTEIN 6.9 g/dL (6.3-8.2)
[2016-11-19] MEDS: INSULIN LISPRO 100 UNIT/ML 3 ML VIAL SUBCUT SCH ×3 (08:49→17:13)
[2016-11-19] MEDS: CALCIUM ACETATE 667 MG CAPSULE PO SCH ×3 (09:01→17:13)
[2016-11-19] MEDS: INSULIN DETEMIR 100 UNIT/ML 3 ML PEN SUBCUT SCH ×2 (09:01→23:01)
[2016-11-19] MEDS ORDERED: EPOETIN ALFA INJ 20000 UNIT/1 ML VIAL (RENAL) IV SCH (10:00)
[2016-11-19] MEDS: CARVEDILOL 12.5 MG TABLET PO SCH ×2 (10:26→22:59)
[2016-11-19] MEDS: FUROSEMIDE 40 MG TABLET PO SCH ×2 (10:27→23:00)
[2016-11-19] MEDS: CITALOPRAM HYDROBROMIDE 20 MG TABLET PO SCH (10:35)
[2016-11-19] MEDS: BUDESONIDE/FORMOTEROL 160-4.5 MCG 60 PUFF/6 GM MDI IH SCH ×2 (10:35→23:04)
[2016-11-19] MEDS: TIMOLOL MALEATE 0.5% OPH SOLN 5 ML OU SCH ×2 (10:35→23:03)
[2016-11-19] MEDS: LANSOPRAZOLE 15 MG TAB.RAP.DR PO SCH (10:35)
[2016-11-19] MEDS: SITAGLIPTIN PHOSPHATE 25 MG TABLET PO SCH (10:35)
[2016-11-19] MEDS: FLUTICASONE NASAL SPRAY 50 MCG/SPRY 120 SPRAY/16 GM NASL SCH ×2 (10:35→22:59)
[2016-11-19] MEDS: CETIRIZINE 10 MG TABLET PO SCH (10:35)
[2016-11-19] MEDS: ASPIRIN 81 MG TABLET, CHEWABLE PO SCH (10:35)
[2016-11-19] MEDS: FOLIC ACID/VITAMIN B COMP W-C CAPSULE PO SCH (10:35)
--- NOTE | 2016-11-19 12:52 | Physician Advisory Note ---
Physician Advisor ProgressNote .: Pursuant to the plan for [facility], I have reviewed the medical record for this patient. Physician Advisor Statement: Possible documentation opportunities if attending agrees: 1. "chronic diastolic CHF" (ECHO 12/29/15 = nl EF, borderline conc LVH, mild pulm HTN) 2. "mild hyponatremia, likely due to " 3. Medical necessity points: why was this pt unsafe to be tx'd at home, since some other pts, even bedbound, can be tx'd at home? (& IV vanc is available w/ HD) - Are her VS significantly unstable compared to her baseline? Are you concerned for new issues developing that need further w/u? (If so, what?) 4. Is there concern for possible "Acute cerebral ischemia" or "Acute cerebrovascular vasoconstriction" causing the aphasia? 5. "___ type dementia" (multi-infarct? - pt w/evidence chronic small vessel ischemic changes of white matter on brain CT) As always, if concerned about any unstable VS or abnormal labs, please comment on them & note what doing about them, & please document each day the potential clinical problems you are concerned could occur if pt not kept in hospital for tx at this time. 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 Head CT w/motion artifact, CXR w/Lt basilar densities without change, resid small Lt basilar pleural effusion vs infiltrate. "Again there is pulmonary vascular congestion." ED nurse documented pt confused with total GCS of 14. Later, at 17:17, nurse documented pt aphasic, thinking disorganized, incontinent of bladder. At 22:40 , nurse documented pt aphasic but bladder status = "voiding, normal". Attending ordered Lasix 40mg po 12h, IV vanc, STAT nephrol consult, tele monitoring. Status: A pt with UTI, even elderly & with AMS, is typically most appropriate to be kept as Outpt Observation, to see how pt responds to initial tx & expectation of possible d/c to home the next day. This pt does have increased risk factors for decompensation, with her underlying ESRD, CHF, CAD, COPD, MRSA with suspected endocarditis last year, HTN , dementia that makes gathering adequate hx & daily ROS more difficult. She has not had fevers or leukocytosis, but has had recurrent tachypnea as high as 27, some tachycardia last PM up to 108, & episodic severe hypertension - though timing of the HTN is not consistent with the AMS being due to HTNive crisis. This AM, attending ordered a now dose of po Lasix (no IV access at the time per nursing notes) with pt BP 219/91 & 182/94. Pt awaiting HD? Attending has ordered AM labs for 11/21, but there are no severe acutely abnormal labs at present to give obvious reason without explicit documentation of what being looked for. Tx in inpatient hospital setting medically reasonable & necessary to protect pt' s health, safety, & medical condition? If not, then Outpt Obs, or "Outpt in a Bed", is the correct status. If so, please document reasons explicitly. Thanks for your help with documentation accuracy/specificity improvement! Kaelyn Shane MD [facility] Physician Advisor, Fellow of Hospital Medicine
--- NOTE | 2016-11-19 16:09 | PDOC CONSULTATION ---
Consultation Consult Date: 11/19/16 Attending physician:: ALONDRA PHILLIPS Consult reason:: I was asked by Dr. Phillips to see this patient to supervise dialysis while in the hospital. History of Present Illness Admission Date/PCP: 11/18/16 14:41 ALONDRA PHILLIPS, History of Present Illness: VAISHALI GODOY is a 86 year old female, she has end-stage renal disease on maintenance hemodialysis she was brought to the emergency room by her daughter because she said the patient is not acting like herself This morning. stated that last night patient did have increased coughing and she is somewhat weaker than usual, normally the patient assist with getting out of bed but today the patient will not assist at all. The daughter also stated that though . patient is awake and we not had she has not been able to get to speak in response to questions asked This morning. She was just admitted in this hospital when she had a right hip fracture and she underwent open reduction internal fixation of the fracture about a month ago. In the emergency room. A chest x-ray was done it was x-ray showed a left basilar density that He had essentially unchanged from the previous chest x-ray, CT head was done it showed no hemorrhage, there is no acute change on the CT head. The urinalysis was grossly abnormal. it seems that she may have encephalopathy due to UTI. She was given IV antibiotics and admission. Blood Cultures so far are still negative. Patient is known to me with end-stage renal disease on maintenance hemodialysis on Tuesdays, , and Saturdays. Her last dialysis was Friday. Initial evaluation reveals that she does not need any emergency dialysis today. However she needs to be dialyzed tomorrow. When I talked to the patient today she could not tell me why she was brought here in the hospital. She is really not a good historian due to underlying dementia. Her affect seems to be at baseline today though. She is awake,alert and responding to my questions although she may not give me a reliable information. She denies any chest pains , shortness of breath, cough, fever, nor any problems with urination. She tells me that she is eating okay but she still has a full tray of her lunch at bedside. Otherwise she looks and seems to be comfortable. 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 Past Surgical History Past Surgical History: Reports: Cardiac Catheterization - cardiac stent 2010, Coronary Stent, Dialysis Access Surgery AVF, Orthopedic Surgery - Back surgery, Vascular Surgery - Fistula to the right arm for dialysis Social History Information Source: [facility] Records Lives with: Family Smoking Status: Unknown if Ever Smoked Frequency of Alcohol Use: None Hx Recreational Drug Use: No Drugs: None Hx Prescription Drug Abuse: No - Advance Directive Resuscitation Status: Full Code Family History Family History: Other - Patient is a poor historian due to dementia Parental Family History Reviewed: No Children Family History Reviewed: No Sibling(s) Family History Reviewed.: No Medication/Allergy Home Medications: Acetaminophen [Tylenol Arthritis 650 mg Tablet] 650 mg PO Q6HP PRN 11/18/16 Albuterol Sulfate [Ventolin Hfa] 2 puff IH Q4HP PRN 11/18/16 Aspirin [Aspirin 81 mg Chewable Tablet] 81 mg PO DAILY 11/18/16 Brimonidine Tartrate [Alphagan P] 1 drop OU Q12 11/18/16 Budesonide/Formoterol Fumarate [Symbicort Hfa 160-4.5 Mcg Inhaler 6 gm] 2 puff IH Q12 11/18/16 Calcium Acetate [Phoslo 667 Mg Capsule] 667 mg PO MEALS 11/18/16 Carvedilol [Coreg 12.5 mg Tablet] 37.5 mg PO Q12 11/18/16 Cetirizine HCl [Cetirizine HCl 5 mg/5 mL] 10 mg PO DAILY 11/18/16 Citalopram Hydrobromide [Celexa 20 mg Tablet] 20 mg PO DAILY 11/18/16 Docusate Sodium [Colace 100 mg Capsule] 100 mg PO DAILY 11/18/16 Epoetin Johnathan [Procrit] 20,000 unit IV TUTHSA@1000 11/18/16 Fluticasone Propionate [Flonase Nasal [place] 50 Mcg/[place] 16 gm] 1 spray NAREB Q12 11/18/16 Folic Acid/Vitamin B Comp W-C [Nephrocaps Multiple Vitamin Capsule] 1 cap PO DAILY 11/18/16 Furosemide [Lasix 40 mg Tablet] 40 mg PO BID 11/18/16 Guaifenesin/Dextromethorphan [Guaifenesin Dm Syrup] 10 ml PO Q4HP PRN 11/18/16 Insulin Aspart [Novolog Flexpen] 5 unit SUBCUT AC 11/18/16 Insulin Detemir [Levemir Flextouch] 10 unit SQ QHS 11/18/16 Insulin Detemir [Levemir Flextouch] 30 unit SQ QAM 11/18/16 Linagliptin [Tradjenta] 5 mg PO DAILY 11/18/16 Mirtazapine 7.5 mg PO QHS 11/18/16 Omeprazole 20 mg PO DAILY 11/18/16 Timolol Maleate 1 drop OU Q12 11/18/16 Allergies/Adverse Reactions: ciprofloxacin [Ciprofloxacin] Allergy (Severe, Verified 08/23/16 20:22) rash sulfamethoxazole [Sulfamethoxazole] Allergy (Unknown, Verified 08/23/16 20:22) rash Review of Systems All systems: reviewed and no additional remarkable complaints except as stated Review of Systems: Constitutional: ABSENT: chills, fatigue, fever(s), headache(s), weight gain, weight loss Eyes: ABSENT: visual disturbances Ears: ABSENT: hearing changes Cardiovascular: ABSENT: chest pain, dyspnea on exertion, edema, orthropnea, palpitations Respiratory: ABSENT: cough, dyspnea, hemoptysis Gastrointestinal: ABSENT: abdominal pain, constipation, diarrhea, hematemesis, hematochezia, nausea, vomiting Genitourinary: ABSENT: dysuria, hematuria Musculoskeletal: ABSENT: joint swelling Integumentary: ABSENT: rash, wounds Neurological: ABSENT: abnormal gait, abnormal speech, confusion, dizziness, focal weakness, numbness, syncope Psychiatric: ABSENT: anxiety, depression Endocrine: ABSENT: cold intolerance, heat intolerance, polydipsia, polyuria Hematologic/Lymphatic: ABSENT: easy bleeding, easy bruising, lymphadenopathy Physical Exam Vital Signs: Temp Pulse Resp BP Pulse Ox 98.3 F 70 22 H 156/86 H 99 11/19/16 12:11/19/16 12:01 11/19/16 12:01 11/19/16 12:01 11/19/16 12:01 Intake & Output 11/18/16 11/19/16 11/20/16 06:59 06:59 06:59 Intake Total 260 342 Balance 260 342 Weight 75.8 kg Exam: General appearance: no acute distress, cooperative, well-developed, well- nourished Head exam: PRESENT: atraumatic, normocephalic Eye exam: PRESENT: Conjunctiva pale, EOMI, PERRLA. ABSENT: conjunctival injection, scleral icterus Mouth exam: PRESENT: moist, neck supple, tongue midline Neck exam: PRESENT: full ROM. ABSENT: carotid bruit, JVD, lymphadenopathy, thyromegaly Respiratory exam: PRESENT: Diminished to auscultation bilaterally. ABSENT: rales, rhonchi, stridor, wheezes Cardiovascular exam: PRESENT: RRR, +S1, +S2. ABSENT: systolic murmur Pulses: PRESENT: normal radial pulses, normal dorsalis pedis pulses GI/Abdominal exam: PRESENT: normal bowel sounds, soft. ABSENT: guarding, mass, tenderness Rectal exam: deferred Extremities exam: PRESENT: full ROM. ABSENT: calf tenderness, pedal edema Musculoskeletal: PRESENT: full ROM. ABSENT: deformity Neurological exam: PRESENT: alert, Awake, Oriented to person, Oriented to place , but not Oriented to time, reflexes normal, CN II-XII grossly intact. ABSENT : motor sensory deficit Psychiatric exam: PRESENT: appropriate affect, normal mood. ABSENT: homicidal ideation, suicidal ideation Skin exam: PRESENT: intact, dry, warm. ABSENT: rash Results Laboratory Results: 11/19/16 07:48 11/19/16 07:48 11/19/16 11/19/16 07:48 07:48 WBC 6.0 RBC 3.19 L Hgb 9.2 L Hct 28.0 L MCV 88 MCH 28.8 MCHC 32.8 RDW 21.0 H Plt Count 200 Seg Neutrophils % 70.7 Lymphocytes % 14.3 Monocytes % 12.1 Eosinophils % 1.3 Basophils % 1.6 Absolute Neutrophils 4.2 Absolute Lymphocytes 0.9 Absolute Monocytes 0.7 Absolute Eosinophils 0.1 Absolute Basophils 0.1 Sodium 135.4 L Potassium 4.8 Chloride 100 Carbon Dioxide 26 Anion Gap 9 BUN 17 Creatinine 4.95 H Est GFR ( Amer) 10 L Est GFR (Non-Af Amer) 8 L Glucose 115 H Calcium 9.0 Total Bilirubin 0.7 AST 21 ALT 23 Alkaline Phosphatase 108 Total Protein 6.9 Albumin 2.9 L Impressions: Chest X-Ray 11/18/16 10:52 IMPRESSION: No significant interval change. Findings as noted above Head CT 11/18/16 10:53 IMPRESSION: No obvious acute finding. Consider follow-up repeat head CT when the patient is more stable. Assessment & Plan - Diagnosis (1) End-stage renal disease on hemodialysis Is this a current diagnosis for this admission?: YesPlan: We'll plan to dialyze tomorrow. No indication for an any urgent need for dialysis today. (2) Anemia in chronic kidney disease Is this a current diagnosis for this admission?: YesPlan: We will plan to give Procrit during dialysis treatments. (3) Hypoalbuminemia Is this a current diagnosis for this admission?: YesPlan: Encouraged patient to increase oral intake. This has been a problem with this patient for years and patient needs a lot of encouragement. (4) Hyponatremia with excess extracellular fluid volume Is this a current diagnosis for this admission?: YesPlan: Mild. (5) UTI (urinary tract infection) Qualifiers: Urinary tract infection type: site unspecified Hematuria presence: without hematuria Qualified Code(s): N39.0 - Urinary tract infection, site not specified Is this a current diagnosis for this admission?: YesPlan: Dr. Phillips managing this. - Notes Notes: Thank you very much for this consultation. We will supervise dialysis will here in the hospital. - Time Time Spent: 50 to 70 Minutes
--- NOTE | 2016-11-19 19:53 | PDOC PROGRESS REPORT ---
Subjective Progress Note for:: 11/19/16 Subjective:: Patient with baseline dementia, admitted because of UTI with encephalopathy, there is no IV access, we change antibiotic to by mouth amoxicillin Physical Exam Vital Signs: Temp Pulse Resp BP Pulse Ox 98.4 F 72 20 156/92 H 100 11/19/16 16:00 11/19/16 16:00 11/19/16 16:00 11/19/16 17:29 11/19/16 16:00 Intake & Output 11/18/16 11/19/16 11/20/16 06:59 06:59 06:59 Intake Total 260 462 Balance 260 462 Weight 75.8 kg General appearance: PRESENT: no acute distress Eye exam: PRESENT: PERRLA Respiratory exam: PRESENT: clear to auscultation kennedi Cardiovascular exam: PRESENT: +S1, +S2 GI/Abdominal exam: PRESENT: soft Neurological exam: PRESENT: alert Skin exam: PRESENT: dry Results Laboratory Results: 11/19/16 07:48 11/19/16 07:48 11/19/16 11/19/16 07:48 07:48 WBC 6.0 RBC 3.19 L Hgb 9.2 L Hct 28.0 L MCV 88 MCH 28.8 MCHC 32.8 RDW 21.0 H Plt Count 200 Seg Neutrophils % 70.7 Lymphocytes % 14.3 Monocytes % 12.1 Eosinophils % 1.3 Basophils % 1.6 Absolute Neutrophils 4.2 Absolute Lymphocytes 0.9 Absolute Monocytes 0.7 Absolute Eosinophils 0.1 Absolute Basophils 0.1 Sodium 135.4 L Potassium 4.8 Chloride 100 Carbon Dioxide 26 Anion Gap 9 BUN 17 Creatinine 4.95 H Est GFR ( Amer) 10 L Est GFR (Non-Af Amer) 8 L Glucose 115 H Calcium 9.0 Total Bilirubin 0.7 AST 21 ALT 23 Alkaline Phosphatase 108 Total Protein 6.9 Albumin 2.9 L Impressions: Chest X-Ray 11/18/16 10:52 IMPRESSION: No significant interval change. Findings as noted above Head CT 11/18/16 10:53 IMPRESSION: No obvious acute finding. Consider follow-up repeat head CT when the patient is more stable. Assessment & Plan - Diagnosis (1) Encephalopathy Is this a current diagnosis for this admission?: Yes (2) Urinary tract infection Qualifiers: Urinary tract infection type: site unspecified Hematuria presence: without hematuria Qualified Code(s): N39.0 - Urinary tract infection, site not specified Is this a current diagnosis for this admission?: Yes (3) End-stage renal disease on hemodialysis Is this a current diagnosis for this admission?: Yes
[2016-11-19] MEDS ORDERED: AMOXICILLIN TRIHYD 250 MG CAPSULE PO SCH (20:00)
[2016-11-19] MEDS ORDERED: AMOXICILLIN TRIHYDRATE 500 MG CAPSULE PO SCH (22:00)
[2016-11-19] MEDS: MIRTAZAPINE 15 MG TABLET PO SCH (23:00)
[2016-11-19] MEDS ORDERED: AMOXICILLIN TRIHYDRATE 500 MG CAPSULE PO ONE (23:00)
[2016-11-19] MEDS: DOCUSATE SODIUM 100 MG CAPSULE PO SCH (23:00)
[2016-11-20] MEDS ORDERED: HEPARIN SOD (PORCINE) 1,000 UNIT/ML 10 ML VIAL IV PRN ×2 (05:00→15:24)
[2016-11-20] MEDS ORDERED: EPOETIN ALFA 10,000 UNIT in SYRINGE, DISPOSABLE, 1 EACH IV PRN (05:00)
[2016-11-20 05:30] LABS: ABSOLUTE BASOPHILS # (AUTO) 0.1 10^3/uL (0.0-0.2); ABSOLUTE EOSINOPHILS # (AUTO) 0.1 10^3/uL (0.0-0.6); ABSOLUTE LYMPHOCYTES (AUTO) 0.9 10^3/uL (0.5-4.7); ABSOLUTE MONOCYTES (AUTO) 0.9 10^3/uL (0.1-1.4); ABSOLUTE NEUT (AUTO) 4.5 10^3/uL (1.7-8.2); BASOPHILS % (AUTO) 1.2 % (0-2); EOSINOPHILS % (AUTO) 1.5 % (0-6); HEMATOCRIT 27.9 % (36.0-47.0); HEMOGLOBIN 9.3 g/dL (12.0-15.5); LYMPHOCYTES % (AUTO) 14.4 % (13-45); MEAN CORPUSCULAR HEMOGLOBIN 29.3 pg (27.0-33.4); MEAN CORPUSCULAR HGB CONC 33.4 g/dL (32.0-36.0); MEAN CORPUSCULAR VOLUME 88 fl (80-97); MONOCYTES % (AUTO) 14.3 % (3-13); RED BLOOD COUNT 3.19 10^6/uL (3.72-5.28); RED CELL DISTRIBUTION WIDTH 21.1 % (11.5-14.0); SEGMENTED NEUTROPHILS % (AUTO) 68.6 % (42-78); WHITE BLOOD COUNT 6.6 10^3/uL (4.0-10.5)
[2016-11-20 05:58] LABS: ALANINE AMINOTRANSFERASE 22 U/L (9-52); ALBUMIN 3.1 g/dL (3.5-5.0); ALKALINE PHOSPHATASE 113 U/L (38-126); ANION GAP 10 (5-19); ASPARTATE AMINO TRANSFERASE 21 U/L (14-36); BILIRUBIN,TOTAL 0.8 mg/dL (0.2-1.3); BLOOD UREA NITROGEN 20 mg/dL (7-20); CALCIUM 9.3 mg/dL (8.4-10.2); CARBON DIOXIDE 25 mmol/L (22-30); CHLORIDE 100 mmol/L (98-107); CREATININE RESULT 5.53 mg/dL (0.52-1.25); GLUCOSE 63 mg/dL (75-110); POTASSIUM 4.3 mmol/L (3.6-5.0); SODIUM 135.4 mmol/L (137-145); TOTAL PROTEIN 7.3 g/dL (6.3-8.2)
[2016-11-20] MEDS: HEPARIN SOD (PORCINE) 5,000 UNIT/ML 1 ML SYRINGE SUBCUT SCH ×3 (06:30→22:13)
[2016-11-20] MEDS: CALCIUM ACETATE 667 MG CAPSULE PO SCH ×3 (07:50→17:41)
[2016-11-20] MEDS: INSULIN DETEMIR 100 UNIT/ML 3 ML PEN SUBCUT SCH ×2 (07:50→22:43)
[2016-11-20] MEDS: INSULIN LISPRO 100 UNIT/ML 3 ML VIAL SUBCUT SCH ×3 (07:50→17:41)
[2016-11-20] MEDS ORDERED: CIPROFLOXACIN HCL 500 MG TABLET PO SCH (10:00)
[2016-11-20] MEDS: CITALOPRAM HYDROBROMIDE 20 MG TABLET PO SCH (10:37)
[2016-11-20] MEDS: CARVEDILOL 12.5 MG TABLET PO SCH ×2 (10:37→14:52)
[2016-11-20] MEDS: CETIRIZINE 10 MG TABLET PO SCH (10:37)
[2016-11-20] MEDS: ASPIRIN 81 MG TABLET, CHEWABLE PO SCH (10:37)
[2016-11-20] MEDS: BUDESONIDE/FORMOTEROL 160-4.5 MCG 60 PUFF/6 GM MDI IH SCH ×2 (10:37→22:12)
[2016-11-20] MEDS: FOLIC ACID/VITAMIN B COMP W-C CAPSULE PO SCH (10:38)
[2016-11-20] MEDS: TIMOLOL MALEATE 0.5% OPH SOLN 5 ML OU SCH ×2 (10:38→22:13)
[2016-11-20] MEDS: FLUTICASONE NASAL SPRAY 50 MCG/SPRY 120 SPRAY/16 GM NASL SCH ×2 (10:38→22:10)
[2016-11-20] MEDS: FUROSEMIDE 40 MG TABLET PO SCH ×2 (10:38→23:09)
[2016-11-20] MEDS: SITAGLIPTIN PHOSPHATE 25 MG TABLET PO SCH (10:38)
[2016-11-20] MEDS: LANSOPRAZOLE 15 MG TAB.RAP.DR PO SCH (10:38)
--- NOTE | 2016-11-20 14:29 | PDOC PROGRESS REPORT ---
Subjective Progress Note for:: 11/20/16 Subjective:: I'm seeing the patient during dialysis treatment today. Her blood pressure is elevated. Patient is at her baseline mental state. She does have an underlying dementia and most of the time she appears confused and not really reliable. She denies any complaints including chest pains nor shortness of breath. She does not eat much and has been refusing to take her medications. She appears pleasant though. Physical Exam Vital Signs: Temp Pulse Resp BP Pulse Ox 97.9 F 75 16 187/72 H 100 11/20/16 11:15 11/20/16 11:15 11/20/16 11:15 11/20/16 11:15 11/20/16 11:15 Intake & Output 11/19/16 11/20/16 11/21/16 06:59 06:59 06:59 Intake Total 355 Balance 355 Weight 79.5 kg Vital signs during dialysis currently: Blood pressure of 204/92, heart rate of 81, blood flow rate of 450 mL per minute, dialysate flow rate of 600 minimal per minute. Exam: General appearance: PRESENT: no acute distress, cooperative, well-developed, well-nourished Head exam: PRESENT: atraumatic, normocephalic Eye exam: PRESENT: conjunctiva pale, PERRLA. ABSENT: scleral icterus Neck exam: ABSENT: JVD Respiratory exam: PRESENT: Diminished breath sounds. ABSENT: crackles, rales, rhonchi, unlabored, wheezes Cardiovascular exam: PRESENT: Regular rate rhythm -+S1, +S2. ABSENT: diastolic murmur, systolic murmur GI/Abdominal exam: PRESENT: normal bowel sounds, soft. ABSENT: guarding, mass, tenderness Extremities exam: ABSENT: No edema Neurological exam: PRESENT: alert, awake, oriented to person, place but not to time. She answers questions but I doubt that she really answers coherently. She is calm and not agitated. Skin exam: PRESENT: dry, warm, Results Laboratory Results: 11/20/16 05:19 11/20/16 05:19 11/20/16 11/20/16 05:19 05:19 WBC 6.6 RBC 3.19 L Hgb 9.3 L Hct 27.9 L MCV 88 MCH 29.3 MCHC 33.4 RDW 21.1 H Plt Count 215 Seg Neutrophils % 68.6 Lymphocytes % 14.4 Monocytes % 14.3 H Eosinophils % 1.5 Basophils % 1.2 Absolute Neutrophils 4.5 Absolute Lymphocytes 0.9 Absolute Monocytes 0.9 Absolute Eosinophils 0.1 Absolute Basophils 0.1 Sodium 135.4 L Potassium 4.3 Chloride 100 Carbon Dioxide 25 Anion Gap 10 BUN 20 Creatinine 5.53 H Est GFR ( Amer) 9 L Est GFR (Non-Af Amer) 7 L Glucose 63 L Calcium 9.3 Total Bilirubin 0.8 AST 21 ALT 22 Alkaline Phosphatase 113 Total Protein 7.3 Albumin 3.1 L Impressions: Chest X-Ray 11/18/16 10:52 IMPRESSION: No significant interval change. Findings as noted above Head CT 11/18/16 10:53 IMPRESSION: No obvious acute finding. Consider follow-up repeat head CT when the patient is more stable. Assessment & Plan - Diagnosis (1) End-stage renal disease on hemodialysis Is this a current diagnosis for this admission?: YesPlan: We will do dialysis today for 3 hours, using the patient's AV fistula, with 2 potassium bath, blood flow rate of 450 mL per minute, dialysate flow rate of 600 mL per minute, ultrafiltration 2 L as tolerated, low dose heparin and Procrit with 10,000 units during dialysis intravenously. We will monitor the patient during dialysis and continue to supervise dialysis will here in the hospital. (2) Anemia in chronic kidney disease Is this a current diagnosis for this admission?: YesPlan: We will plan to give Procrit during dialysis treatments. (3) Hypoalbuminemia Is this a current diagnosis for this admission?: YesPlan: Encouraged patient to increase oral intake. This has been a problem with this patient for years and patient needs a lot of encouragement. Start protein supplement with Nepro drink with meals. May also consider Beneprotein. If the patient continues to have poor appetite and almost in a state of failure to thrive, we might need to discuss further plan including continuation of dialysis treatment with patient's family. (4) Hyponatremia with excess extracellular fluid volume Is this a current diagnosis for this admission?: YesPlan: Mild. We will do some ultrafiltration today. (5) UTI (urinary tract infection) Qualifiers: Urinary tract infection type: site unspecified Hematuria presence: without hematuria Qualified Code(s): N39.0 - Urinary tract infection, site not specified Is this a current diagnosis for this admission?: YesPlan: Dr. Richardson managing this. - Time Time with patient: 15-25 minutes
[2016-11-20] MEDS ORDERED: AMOXICILLIN TRIHYDRATE 500 MG CAPSULE PO SCH (22:00)
[2016-11-20] MEDS: DOCUSATE SODIUM 100 MG CAPSULE PO SCH (22:36)
[2016-11-20] MEDS: MIRTAZAPINE 15 MG TABLET PO SCH (23:09)
[2016-11-21] MEDS: CARVEDILOL 12.5 MG TABLET PO SCH ×2 (00:25→10:31)
[2016-11-21 05:08] LABS: ABSOLUTE BASOPHILS # (AUTO) 0.1 10^3/uL (0.0-0.2); ABSOLUTE EOSINOPHILS # (AUTO) 0.1 10^3/uL (0.0-0.6); ABSOLUTE NEUT (AUTO) 3.2 10^3/uL (1.7-8.2); BASOPHILS % (AUTO) 1.1 % (0-2); EOSINOPHILS % (AUTO) 2.5 % (0-6); HEMATOCRIT 27.1 % (36.0-47.0); HEMOGLOBIN 9.2 g/dL (12.0-15.5); HGB HCT DIFFERENCE 0.5; LYMPHOCYTES % (AUTO) 18.2 % (13-45); MEAN CORPUSCULAR HEMOGLOBIN 29.5 pg (27.0-33.4); MEAN CORPUSCULAR VOLUME 87 fl (80-97); MONOCYTES % (AUTO) 18.9 % (3-13); RED BLOOD COUNT 3.13 10^6/uL (3.72-5.28); RED CELL DISTRIBUTION WIDTH 20.1 % (11.5-14.0); SEGMENTED NEUTROPHILS % (AUTO) 59.3 % (42-78); WHITE BLOOD COUNT 5.4 10^3/uL (4.0-10.5)
[2016-11-21] MEDS: HEPARIN SOD (PORCINE) 5,000 UNIT/ML 1 ML SYRINGE SUBCUT SCH ×2 (05:13→13:42)
[2016-11-21 05:31] LABS: ALANINE AMINOTRANSFERASE 24 U/L (9-52); ALBUMIN 2.5 g/dL (3.5-5.0); ALKALINE PHOSPHATASE 109 U/L (38-126); ANION GAP 8 (5-19); ASPARTATE AMINO TRANSFERASE 24 U/L (14-36); BILIRUBIN,TOTAL 0.6 mg/dL (0.2-1.3); BLOOD UREA NITROGEN 10 mg/dL (7-20); CALCIUM 8.4 mg/dL (8.4-10.2); CARBON DIOXIDE 32 mmol/L (22-30); CHLORIDE 98 mmol/L (98-107); CREATININE RESULT 3.43 mg/dL (0.52-1.25); GLUCOSE 123 mg/dL (75-110); POTASSIUM 3.7 mmol/L (3.6-5.0); SODIUM 137.5 mmol/L (137-145)
[2016-11-21] MEDS: CALCIUM ACETATE 667 MG CAPSULE PO SCH ×3 (07:53→16:44)
[2016-11-21] MEDS: INSULIN LISPRO 100 UNIT/ML 3 ML VIAL SUBCUT SCH ×3 (07:56→16:42)
[2016-11-21] MEDS: INSULIN DETEMIR 100 UNIT/ML 3 ML PEN SUBCUT SCH (07:56)
[2016-11-21] MEDS ORDERED: BRIMONIDINE TARTRATE 0.2% OPH SOLN 5 ML OU SCH (10:00)
[2016-11-21] MEDS: ASPIRIN 81 MG TABLET, CHEWABLE PO SCH (10:31)
[2016-11-21] MEDS: CETIRIZINE 10 MG TABLET PO SCH (10:31)
[2016-11-21] MEDS: FUROSEMIDE 40 MG TABLET PO SCH (10:32)
[2016-11-21] MEDS: FOLIC ACID/VITAMIN B COMP W-C CAPSULE PO SCH (10:32)
[2016-11-21] MEDS: CITALOPRAM HYDROBROMIDE 20 MG TABLET PO SCH (10:32)
[2016-11-21] MEDS: LANSOPRAZOLE 15 MG TAB.RAP.DR PO SCH (10:32)
[2016-11-21] MEDS: BUDESONIDE/FORMOTEROL 160-4.5 MCG 60 PUFF/6 GM MDI IH SCH (10:33)
[2016-11-21] MEDS: SITAGLIPTIN PHOSPHATE 25 MG TABLET PO SCH (10:34)
[2016-11-21] MEDS: FLUTICASONE NASAL SPRAY 50 MCG/SPRY 120 SPRAY/16 GM NASL SCH (10:35)
[2016-11-21] MEDS: TIMOLOL MALEATE 0.5% OPH SOLN 5 ML OU SCH (10:35)
--- NOTE | 2016-11-21 14:57 | Physician Advisory Note ---
Physician Advisor ProgressNote .: Pursuant to the plan for [facility], I have reviewed the medical record for this patient. Physician Advisor Statement: Possible documentation opportunities if attending agrees: 1. "mild hyponatremia due to excess extracellular volume due to ESRD" 2. "chronic diastolic CHF" 3. Reasons pt cannot be d/c'd today, or yesterday, to a lower level of care. As always, if concerned about any unstable VS or abnormal labs, please comment on them & note what doing about them, & please document each day the potential clinical problems you are concerned could occur if pt not kept in hospital for tx at this time. Thanks for your help with documentation accuracy/specificity improvement! Kaelyn Shane MD [facility] Physician Advisor, Fellow of Hospital Medicine
[2016-11-21 18:37] VITALS: BP 168/61
--- NOTE | 2016-11-21 20:22 | PDOC DISCHARGE SUMMARY ---
General - Admit/Disc Date/PCP Admission Date/Primary Care Provider: 11/19/16 19:51 ALONDRA PHILLIPS MD Discharge Date: 11/21/16 - Discharge Diagnosis (1) Encephalopathy Is this a current diagnosis for this admission?: Yes (2) Urinary tract infection Is this a current diagnosis for this admission?: Yes (3) End-stage renal disease on hemodialysis Is this a current diagnosis for this admission?: Yes - Additional Information Resuscitation Status: Full Code Discharge Activity: Activity As Tolerated, Keep Legs Elevated, Weigh Daily Home Medications: Acetaminophen [Tylenol Arthritis 650 mg Tablet] 650 mg PO Q6HP PRN 11/18/16 Albuterol Sulfate [Ventolin Hfa] 2 puff IH Q4HP PRN 11/18/16 Aspirin [Aspirin 81 mg Chewable Tablet] 81 mg PO DAILY 11/18/16 Brimonidine Tartrate [Alphagan P] 1 drop OU Q12 11/18/16 Budesonide/Formoterol Fumarate [Symbicort HFA 160-4.5 mcg Inhaler 6 gm] 2 puff IH Q12 11/18/16 Calcium Acetate [Phoslo 667 mg Capsule] 667 mg PO MEALS 11/18/16 Carvedilol [Coreg 12.5 mg Tablet] 37.5 mg PO Q12 11/18/16 Cetirizine HCl [Zyrtec Oral Soln 5 mg/5 ml Udcup] 10 mg PO DAILY 11/18/16 Citalopram Hydrobromide [Celexa 20 mg Tablet] 20 mg PO DAILY 11/18/16 Docusate Sodium [Colace 100 mg Capsule] 100 mg PO DAILY 11/18/16 Epoetin Johnathan [Procrit Inj 20,000 Unit/1 ml Vial (Renal)] 20,000 unit IV TUTHSA@ 1000 11/18/16 Fluticasone Propionate [Flonase Nasal [place] 50 Mcg/[place] 16 gm] 1 spray NAREB Q12 11/18/16 Folic Acid/Vitamin B Comp W-C [Nephrocaps Multiple Vitamin Capsule] 1 cap PO DAILY 11/18/16 Furosemide [Lasix 40 mg Tablet] 40 mg PO BID 11/18/16 Guaifenesin/Dextromethorphan [Guaifenesin Dm Syrup] 10 ml PO Q4HP PRN 11/18/16 Insulin Aspart [Novolog Flexpen] 5 unit SUBCUT AC 11/18/16 Insulin Detemir [Levemir Flextouch] 10 unit SQ QHS 11/18/16 Insulin Detemir [Levemir Flextouch] 30 unit SQ QAM 11/18/16 Linagliptin [Tradjenta] 5 mg PO DAILY 11/18/16 Mirtazapine 7.5 mg PO QHS 11/18/16 Omeprazole 20 mg PO DAILY 11/18/16 Timolol Maleate 1 drop OU Q12 11/18/16 History of Present Illness History of Present Illness: VAISHALI GODOY is a 86 year old female, she has end-stage renal disease on maintenance hemodialysis she was brought to the emergency room by her daughter because she said the patient is not acting like herself This morning. stated that last night patient did have increased coughing and she is somewhat weaker than usual, normally the patient we are cyst with getting out of bed but today the patient will not assist at all. The daughter also stated that though . patient is awake and we not had she has not been able to get to speak in response to questions asked This morning. She was just admitted in this hospital when she had a right hip fracture and she underwent open reduction internal fixation of the fracture about a month ago. In the emergency room. A chest x-ray was done it was x-ray showed a left basilar density that He had essentially unchanged from the previous chest x-ray, CT head was done it showed no hemorrhage, there is no acute change on the CT head. The urinalysis was grossly abnormal. it seems that she may have encephalopathy due to UTI Hospital Course Hospital Course: Patient was admitted because of concern for encephalopathy due to UTI, she has baseline dementia and there was no major intercurrent event, she was observed for 23 hours she was seen by nephrology and she was dialyzed during the stay in the hospital. Physical Exam Vital Signs: Temp Pulse Resp BP Pulse Ox 97.8 F 72 20 168/61 H 97 11/21/16 18:34 11/21/16 18:34 11/21/16 18:34 11/21/16 18:34 11/21/16 18:34 Intake & Output 11/20/16 11/21/16 11/22/16 06:59 06:59 06:59 Intake Total 355 850 356 Output Total 2800 0 Balance 355 -1950 356 Weight 79.5 kg 76.8 kg General appearance: PRESENT: no acute distress Eye exam: PRESENT: PERRLA Respiratory exam: PRESENT: clear to auscultation kennedi Cardiovascular exam: PRESENT: +S1, +S2 GI/Abdominal exam: PRESENT: soft Neurological exam: PRESENT: alert Results Laboratory Results: 11/21/16 04:56 11/21/16 04:56 11/21/16 11/21/16 04:56 04:56 WBC 5.4 RBC 3.13 L Hgb 9.2 L Hct 27.1 L MCV 87 MCH 29.5 MCHC 34.0 RDW 20.1 H Plt Count 188 Seg Neutrophils % 59.3 Lymphocytes % 18.2 Monocytes % 18.9 H Eosinophils % 2.5 Basophils % 1.1 Absolute Neutrophils 3.2 Absolute Lymphocytes 1.0 Absolute Monocytes 1.0 Absolute Eosinophils 0.1 Absolute Basophils 0.1 Sodium 137.5 Potassium 3.7 Chloride 98 Carbon Dioxide 32 H Anion Gap 8 BUN 10 Creatinine 3.43 H Est GFR ( Amer) 15 L Est GFR (Non-Af Amer) 13 L Glucose 123 H Calcium 8.4 Total Bilirubin 0.6 AST 24 ALT 24 Alkaline Phosphatase 109 Total Protein 7.0 Albumin 2.5 L Impressions: Chest X-Ray 11/18/16 10:52 IMPRESSION: No significant interval change. Findings as noted above Head CT 11/18/16 10:53 IMPRESSION: No obvious acute finding. Consider follow-up repeat head CT when the patient is more stable.
== END 2016-11-21 19:43 | disposition home health service (06) ==
LOC: ER 10:14 → UNDOADMIN 14:41 → EH 14:41 → UNDOADMIN 15:18 → 3W 17:16 → EH 17:16 → INTOOBSV 11-19 19:51 → 3W 11-19 19:51
PROVIDERS: ADMIT Internal Medicine; ATTEND Internal Medicine
PROC: 5A1D00Z (ICD-10-PCS; principal; 2016-11-20)
DX: G93.40 Encephalopathy, unspecified (principal); N39.0 Urinary tract infection, site not specified; I13.2 Hypertensive heart and chronic kidney disease with heart failure and with stage 5 chronic kidney disease, or end stage renal disease; E11.22 Type 2 diabetes mellitus with diabetic chronic kidney disease; N18.6 End stage renal disease; I50.9 Heart failure, unspecified; D63.1 Anemia in chronic kidney disease; Z99.2 Dependence on renal dialysis; E87.1 Hypo-osmolality and hyponatremia; I25.10 Atherosclerotic heart disease of native coronary artery without angina pectoris; E78.5 Hyperlipidemia, unspecified; J44.9 Chronic obstructive pulmonary disease, unspecified; M19.90 Unspecified osteoarthritis, unspecified site; F03.90 Unspecified dementia, unspecified severity, without behavioral disturbance, psychotic disturbance, mood disturbance, and anxiety; Z95.5 Presence of coronary angioplasty implant and graft; Z79.899 Other long term (current) drug therapy; Z79.82 Long term (current) use of aspirin; Z79.4 Long term (current) use of insulin; Z88.1 Allergy status to other antibiotic agents; Z86.14 Personal history of Methicillin resistant Staphylococcus aureus infection; Z90.710 Acquired absence of both cervix and uterus; Z95.0 Presence of cardiac pacemaker
CPT/HCPCS: 93005; 99285; 96375; 96365; 96367; 36415 ×4; 87040; 82962 ×4; 82550; 85025 ×4; 85610; 85730; 80053 ×4; 81001; 84484; 87493 ×2; 83605; 71010; 70450; 93010; G0257; G0378 ×3; A9270 ×22; J1644 ×5; Q4081 ×2; J3490 ×6; J7060; J3370; J0456; J0696; J1815

== ENCOUNTER 2016-11-30 02:26 | Emergency (ER) | payer MEDICARE, MEDICAID ==
--- NOTE | 2016-11-30 02:49 | ER Document Report ---
ED Fall - General Stated Complaint: FALL LEFT KNEE PAIN Time seen by provider: 02:49 Mode of Arrival: Medic Information source: Patient, Relative - Daughter TRAVEL OUTSIDE OF THE [place] IN LAST 30 DAYS: No - HPI Patient complains to provider of: fall from bed Occurred: Just prior to arrival Where: Home Context: Slipped Associated symptoms: None Location of injury/pain: Hip, Knee Notes: Patient is an 86-year-old female who was brought to the emergency room from home by EMS after slipping from her bed and falling on the floor, patient's daughter reports that her but is approximately 2 feet from the ground, she heard patient taught fall to the floor, went into check on her and found her laying on her left side, she has an abrasion to her left knee, and daughter is concerned because she had a hip fracture on the right side which she had surgery on last month, patient has a history of dementia, she reports being bitten by a cat which is clearly not true, but denies having any pain anywhere - Related data Allergies/Adverse Reactions: ciprofloxacin [Ciprofloxacin] Allergy (Severe, Verified 08/23/16 20:22) rash sulfamethoxazole [Sulfamethoxazole] Allergy (Unknown, Verified 08/23/16 20:22) rash Past Medical History - General Information source: Patient, Relative - Social History Smoking Status: Never Smoker Family History: Reviewed & Not Pertinent, Other - Unable to obtain due to dementia - Past Medical History Cardiac Medical History: Reports: Hx Congestive Heart Failure, Hx Coronary Artery Disease, Hx Hypercholesterolemia, Hx Hypertension - on meds Denies: Hx Atrial Fibrillation, Hx Heart Attack, Hx Pulmonary Embolism Pulmonary Medical History: Reports: Hx Asthma - inhalers, Hx Bronchitis - hx of , Hx COPD, Hx Pneumonia - hx of, Hx Sleep Apnea Denies: Hx Respiratory Failure, Hx Tuberculosis Neurological Medical History: Denies: Hx Cerebrovascular Accident, Hx Seizures Endocrine Medical History: Reports: Hx Diabetes Mellitus Type 2. Denies: Hx Diabetes Mellitus Type 1 Renal/ Medical History: Reports: Hx End Stage Renal Disease - End-stage renal disease on maintenance hemodialysis Malignancy Medical History: Denies: Hx Lung Cancer GI Medical History: Denies: Hx Gastroesophageal Reflux Disease, Hx Hiatal Hernia Musculoskeltal Medical History: Reports Hx 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, Denies Hx Fibromyalgia, Denies Hx Muscular Dystrophy Psychiatric Medical History: Reports: Hx Dementia Denies: Hx Depression Traumatic Medical History: Denies: Hx Fractures Infectious Medical History: Reports: Hx MRSA Past Surgical History: Reports: Hx Cardiac Catheterization - cardiac stent 2010 , Hx Coronary Stent, Hx Orthopedic Surgery - Back surgery, Hx Vascular Surgery - Fistula to the right arm for dialysis. Denies: Hx Hysterectomy, Hx Pacemaker - Immunizations Immunizations up to date: Yes Hx Diphtheria, Pertussis, Tetanus Vaccination: Yes Hx Pneumococcal Vaccination: 10/13/09 Review of Systems - Review of Systems Constitutional: No symptoms reported EENT: No symptoms reported Cardiovascular: No symptoms reported Respiratory: No symptoms reported Gastrointestinal: No symptoms reported Genitourinary: No symptoms reported Female Genitourinary: No symptoms reported Musculoskeletal: See HPI Skin: See HPI Hematologic/Lymphatic: No symptoms reported Neurological/Psychological: No symptoms reported -: Yes All other systems reviewed and negative Physical Exam - Vital signs Vitals: Temp Pulse Resp BP Pulse Ox 98.1 F 73 20 166/97 H 97 11/30/16 02:38 11/30/16 02:38 11/30/16 02:38 11/30/16 02:38 11/30/16 02:38 Interpretation: Hypertensive - General General appearance: Appears well, Alert In distress: None - HEENT Head: Normocephalic, Atraumatic Eyes: Normal Conjunctiva: Normal Extraocular movements intact: Yes Eyelashes: Normal Pupils: PERRL Nasal: Normal Mouth/Lips: Normal Mucous membranes: Normal Pharynx: Normal - Respiratory Respiratory status: No respiratory distress Chest status: Nontender Breath sounds: Normal Chest palpation: Normal - Cardiovascular Rhythm: Regular Heart sounds: Normal auscultation Murmur: No - Abdominal Inspection: Normal Distension: No distension Bowel sounds: Normal Tenderness: Nontender Organomegaly: No organomegaly - Back Back: Normal, Nontender - Extremities General upper extremity: Normal inspection, Nontender, Normal color, Normal ROM , Normal temperature General lower extremity: Normal inspection, Nontender, Normal color, Normal ROM , Normal temperature. No: Yael's sign Knee: Abrasion - 1 cm abrasion to left knee over the patella - Neurological Neuro grossly intact: Yes Cognition: Confused Orientation: Disoriented to events Melissa Coma Scale Eye Opening: Spontaneous Melissa Coma Scale Verbal: Confused Leila Coma Scale Motor: Obeys Commands Melissa Coma Scale Total: 14 Speech: Normal Motor strength normal: LUE, RUE, LLE, RLE Sensory: Normal - Psychological Associated symptoms: Normal affect, Normal mood - Skin Skin Temperature: Warm Skin Moisture: Dry Skin Color: Normal Course - Re-evaluation Re-evalutation: 11/30/16 04:50 I'm able to move all 4 extremities without patient complaining of any pain, however daughter reports that she was seen in this emergency room a few months prior after a similar fall and a hip fracture was missed for approximately 2 weeks, patient received a right hip replacement as a result of this injury, daughter is concerned that she may have injured the prosthetic hip, therefore patient was sent for x-rays of the pelvis and the left knee which show no acute findings, I reevaluated patient and ask daughter she noted patient seemed to be complaining of pain or injury elsewhere which she reported no she was not, therefore patient was discharged home with instructions for follow-up and advised to return if symptoms worsen, patient's daughter acknowledges understanding and agreement with this plan - Vital Signs Vital signs: Temp Pulse Resp BP Pulse Ox 98.1 F 73 20 166/97 H 97 11/30/16 02:38 11/30/16 02:38 11/30/16 02:38 11/30/16 02:38 11/30/16 02:38 - Diagnostic Test Radiology reviewed: Image reviewed, Reports reviewed Discharge - Discharge Clinical Impression: Fall from bed Qualifiers: Encounter type: initial encounter Qualified Code(s): W06.XXXA - Fall from bed, initial encounter Abrasion, left knee, initial encounter Qualifiers: Encounter type: initial encounter Qualified Code(s): S80.212A - Abrasion, left knee, initial encounter Condition: Stable Disposition: HOME, SELF-CARE Instructions: Abrasions ([facility]) Additional Instructions: Follow up with your primary care provider in one to 2 days. Return to the emergency room immediately if symptoms worsen or any additional concerns. Referrals: ALONDRA PHILLIPS MD [Primary Care Provider] - Follow up as needed
[2016-11-30 09:33] VITALS: BP 150/67
== END 2016-11-30 09:34 | disposition home or self-care (01) ==
LOC: ER 02:26
DX: S80.212A Abrasion, left knee, initial encounter (principal); W06.XXXA Fall from bed, initial encounter; Y92.003 Bedroom of unspecified non-institutional (private) residence as the place of occurrence of the external cause; E11.22 Type 2 diabetes mellitus with diabetic chronic kidney disease; I13.2 Hypertensive heart and chronic kidney disease with heart failure and with stage 5 chronic kidney disease, or end stage renal disease; I50.9 Heart failure, unspecified; N18.6 End stage renal disease; I25.10 Atherosclerotic heart disease of native coronary artery without angina pectoris; E78.00 Pure hypercholesterolemia, unspecified; J45.909 Unspecified asthma, uncomplicated; J44.9 Chronic obstructive pulmonary disease, unspecified; F03.90 Unspecified dementia, unspecified severity, without behavioral disturbance, psychotic disturbance, mood disturbance, and anxiety; Z99.2 Dependence on renal dialysis; Z86.14 Personal history of Methicillin resistant Staphylococcus aureus infection; Z88.3 Allergy status to other anti-infective agents; Z96.641 Presence of right artificial hip joint
CPT/HCPCS: 72170; 99284

== ENCOUNTER 2017-01-01 07:52 | Inpatient (IN) | payer MEDICARE, MEDICAID ==
--- NOTE | 2017-01-01 08:49 | ER Document Report ---
ED General - General Chief Complaint: Fall Stated Complaint: FALL/HEAD INJURY Mode of Arrival: Stretcher Information source: Relative Notes: Patient presents to the emergency department via EMS. Daughter is at her bedside. Daughter reports for the past 2 months patient has wandered at night. Reports history of dementia. Daughter reports for the past 2 months she has had her mom at home because of Medicaid issues. She reports that she barricaded her mom in the bed with kitchen chairs last night and she still got out of bed and fell. Reports she fell and hit her forehead. She reports mom was acting the same afterwards. Denies recent fever vomiting diarrhea. Denies recent change in behavior. TRAVEL OUTSIDE OF THE [place] IN LAST 30 DAYS: No - HPI Onset: Just prior to arrival Onset/Duration: Sudden Quality of pain: No pain Associated symptoms: None Exacerbated by: Denies Relieved by: Denies Similar symptoms previously: Yes - Related Data Allergies/Adverse Reactions: ciprofloxacin [Ciprofloxacin] Allergy (Severe, Verified 08/23/16 20:22) rash sulfamethoxazole [Sulfamethoxazole] Allergy (Unknown, Verified 08/23/16 20:22) rash Past Medical History - General Information source: Relative - Social History Smoking Status: Unknown if Ever Smoked Cigarette use (# per day): No Frequency of alcohol use: None Drug Abuse: None Lives with: Family Family History: Reviewed & Not Pertinent, Other - Unable to obtain due to dementia - Past Medical History Cardiac Medical History: Reports: Hx Congestive Heart Failure, Hx Coronary Artery Disease, Hx Hypercholesterolemia, Hx Hypertension - on meds Denies: Hx Atrial Fibrillation, Hx Heart Attack, Hx Pulmonary Embolism Pulmonary Medical History: Reports: Hx Asthma - inhalers, Hx Bronchitis - hx of , Hx COPD, Hx Pneumonia - hx of, Hx Sleep Apnea Denies: Hx Respiratory Failure, Hx Tuberculosis Neurological Medical History: Denies: Hx Cerebrovascular Accident, Hx Seizures Endocrine Medical History: Reports: Hx Diabetes Mellitus Type 2. Denies: Hx Diabetes Mellitus Type 1 Renal/ Medical History: Reports: Hx End Stage Renal Disease - End-stage renal disease on maintenance hemodialysis Malignancy Medical History: Denies: Hx Lung Cancer GI Medical History: Denies: Hx Gastroesophageal Reflux Disease, Hx Hiatal Hernia Musculoskeltal Medical History: Reports Hx 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, Denies Hx Fibromyalgia, Denies Hx Muscular Dystrophy Psychiatric Medical History: Reports: Hx Dementia Denies: Hx Depression Traumatic Medical History: Denies: Hx Fractures Infectious Medical History: Reports: Hx MRSA Past Surgical History: Reports: Hx Cardiac Catheterization - cardiac stent 2010 , Hx Coronary Stent, Hx Orthopedic Surgery - Back surgery, Hx Vascular Surgery - Fistula to the right arm for dialysis. Denies: Hx Hysterectomy, Hx Pacemaker - Immunizations Immunizations up to date: Yes Hx Diphtheria, Pertussis, Tetanus Vaccination: Yes Hx Pneumococcal Vaccination: 10/13/09 Review of Systems - Review of Systems Notes: Review HPI for review of systems., All other systems negative Physical Exam - Vital signs Vitals: Temp Pulse Resp BP Pulse Ox 97.8 F 64 16 127/50 H 98 01/01/17 07:59 01/01/17 07:59 01/01/17 07:59 01/01/17 07:59 01/01/17 07:59 - Notes Notes: PHYSICAL EXAMINATION: GENERAL: Well-appearing and in no acute distress HEAD: Atraumatic, normocephalic. EYES: hematoma to center forehead. extraocular movements intact, sclera anicteric, conjunctiva are normal. ENT: nares patent Moist mucous membranes. NECK: Normal range of motion, supple without lymphadenopathy LUNGS: CTAB and equal. No wheezes rales or rhonchi. HEART: Regular rate and rhythm without murmurs ABDOMEN: Soft, no tenderness. No guarding, no rebound EXTREMITIES: Normal range of motion, no pitting edema. No cyanosis. NEUROLOGICAL: Cranial nerves grossly intact. Normal sensory/motor exams. PSYCH: Normal mood, normal affect. pt confused to place and time. SKIN: Warm, Dry, normal turgor, no rashes or lesions noted - Skin Skin Temperature: Warm Skin Moisture: Dry Location of irregularity: Other - sacral area Irregularity with: Other - decubitis- sacral area, no bleeding- stage 2 Course - Re-evaluation Re-evalutation: 01/01/17 09:43 client experience manager Sandeep Villanueva contacted for consult. 01/01/17 Sandeep community case manager is talking to talk with daughter. Daughter is tired. Will assess labs to ascertain if patient should be admitted 01/01/17 14:[address] gibbons for admission. Pt to be admitted to reg floor for UTI, dementia - Vital Signs Vital signs: Temp Pulse Resp BP Pulse Ox 98.8 F 67 18 159/61 H 95 01/01/17 15:13 01/01/17 15:13 01/01/17 15:13 01/01/17 15:13 01/01/17 15:13 - Laboratory Result Diagrams: 01/01/17 13:27 01/01/17 16:20 Laboratory results interpreted by me: 01/01/17 01/01/17 01/01/17 09:30 13:27 16:20 Hgb 11.5 L Hct 35.8 L RDW 16.8 H Monocytes % 18.3 H Creatinine 3.53 H Est GFR ( Amer) 15 L Est GFR (Non-Af Amer) 12 L Albumin 3.1 L Lipase Urine Protein 100 H Urine Blood LARGE H Ur Leukocyte Esterase LARGE H 01/01/17 16:20 Hgb Hct RDW Monocytes % Creatinine Est GFR ( Amer) Est GFR (Non-Af Amer) Albumin Lipase 21.3 L Urine Protein Urine Blood Ur Leukocyte Esterase - Diagnostic Test Radiology reviewed: Image reviewed, Reports reviewed - bilateral hips IMPRESSION : No acute finding. CT cervical spine IMPRESSION: Considerable motion artifact. No fracture identified. If clinical suspicion of fracture persists, repeat imaging when the patient is more stable is recommended. CT Head IMPRESSION: No visualized intracranial hemorrhage or fracture. Frontal soft tissue swelling. Significant patient motion limits evaluation of the lower cerebrum, skullbase and posterior fossa. Repeat exam recommended if there is high clinical suspicion Discharge - Discharge Clinical Impression: Dementia Fall Qualifiers: Encounter type: initial encounter Qualified Code(s): W19.XXXA - Unspecified fall, initial encounter Urinary tract infection Qualifiers: Urinary tract infection type: site unspecified Hematuria presence: with hematuria Qualified Code(s): N39.0 - Urinary tract infection, site not specified Condition: Stable Disposition: HOME, SELF-CARE Admitting Provider: Debra
[2017-01-01 10:02] LABS: APPEARANCE,URINE TURBID; BILIRUBIN,URINE NEGATIVE (NEGATIVE); GLUCOSE, URINE NEGATIVE (NEGATIVE); KETONES,URINE NEGATIVE (NEGATIVE); LEUKOCYTE ESTERASE,URINE LARGE (NEGATIVE); NITRITE,URINE NEGATIVE (NEGATIVE); PROTEIN,URINE 100 mg/dL (NEGATIVE); URINE SPECIFIC GRAVITY 1.004; UROBILINOGEN,URINE NEGATIVE mg/dL (<2.0)
[2017-01-01] MEDS ORDERED: CEFTRIAXONE 1 GM/D5W RTU 50 ML IV ONE (10:34)
[2017-01-01 14:08] LABS: ABSOLUTE BASOPHILS # (AUTO) 0.1 10^3/uL (0.0-0.2); ABSOLUTE EOSINOPHILS # (AUTO) 0.1 10^3/uL (0.0-0.6); ABSOLUTE LYMPHOCYTES (AUTO) 1.1 10^3/uL (0.5-4.7); BASOPHILS % (AUTO) 1.3 % (0-2); EOSINOPHILS % (AUTO) 1.7 % (0-6); HEMATOCRIT 35.8 % (36.0-47.0); HEMOGLOBIN 11.5 g/dL (12.0-15.5); HGB HCT DIFFERENCE -1.3; LYMPHOCYTES % (AUTO) 20.7 % (13-45); MEAN CORPUSCULAR HGB CONC 32.2 g/dL (32.0-36.0); MEAN CORPUSCULAR VOLUME 87 fl (80-97); MONOCYTES % (AUTO) 18.3 % (3-13); RED BLOOD COUNT 4.12 10^6/uL (3.72-5.28); RED CELL DISTRIBUTION WIDTH 16.8 % (11.5-14.0); WHITE BLOOD COUNT 5.2 10^3/uL (4.0-10.5)
[2017-01-01 16:54] LABS: ALANINE AMINOTRANSFERASE 23 U/L (9-52); ALBUMIN 3.1 g/dL (3.5-5.0); ALKALINE PHOSPHATASE 107 U/L (38-126); ANION GAP 9 (5-19); ASPARTATE AMINO TRANSFERASE 20 U/L (14-36); BILIRUBIN,DIRECT 0.3 mg/dL (0.0-0.4); BILIRUBIN,TOTAL 0.7 mg/dL (0.2-1.3); BLOOD UREA NITROGEN 7 mg/dL (7-20); CALCIUM 9.2 mg/dL (8.4-10.2); CARBON DIOXIDE 29 mmol/L (22-30); CHLORIDE 100 mmol/L (98-107); CREATININE RESULT 3.53 mg/dL (0.52-1.25); GLUCOSE 109 mg/dL (75-110); POTASSIUM 4.2 mmol/L (3.6-5.0); SODIUM 137.7 mmol/L (137-145); TOTAL PROTEIN 7.4 g/dL (6.3-8.2)
[2017-01-01] MEDS ORDERED: (PENDING PHARMACY ID) (Acetaminophen [Tylenol Arthritis 650 Mg Tablet] 650 MG) PO PRN (17:46)
[2017-01-01] MEDS ORDERED: ALBUTEROL SULFATE HFA (90 MCG/PUFF) 8 GM MDI (1 MDI/ER DISP) IH PRN (17:46)
[2017-01-01] MEDS ORDERED: (PENDING PHARMACY ID) (Linagliptin [Tradjenta] 5 MG) PO SCH (18:00)
[2017-01-01] MEDS ORDERED: (PENDING PHARMACY ID) (Brimonidine Tartrate [Alphagan P] 1 DROP) OU SCH (18:00)
[2017-01-01] MEDS ORDERED: INSULIN DETEMIR 100 UNIT/ML 3 ML PEN SUBCUT SCH (18:00)
[2017-01-01 18:06] LABS: LIPASE 21.3 U/L (23-300); MAGNESIUM 1.8 mg/dL (1.6-2.3); PHOSPHORUS 3.1 mg/dL (2.5-4.5)
[2017-01-01 18:34] LABS: CREATINE KINASE MB 0.47 ng/mL (<4.55)
[2017-01-01 18:37] LABS: THYROID STIMULATING HORMONE 2.31 uIU/mL (0.47-4.68)
[2017-01-01] MEDS: ASPIRIN 81 MG TABLET, CHEWABLE PO SCH (18:37)
[2017-01-01 18:38] LABS: TROPONIN I < 0.012 ng/mL
[2017-01-01] MEDS: DOCUSATE SODIUM 100 MG CAPSULE PO SCH (18:38)
[2017-01-01] MEDS: FUROSEMIDE 40 MG TABLET PO SCH (18:38)
[2017-01-01] MEDS: CETIRIZINE HCL ORAL SOLN 5 MG/5 ML UDCUP PO SCH (18:38)
[2017-01-01] MEDS: CITALOPRAM HYDROBROMIDE 20 MG TABLET PO SCH (18:38)
[2017-01-01] MEDS: FOLIC ACID/VITAMIN B COMP W-C CAPSULE PO SCH (19:37)
[2017-01-01 20:43] LABS: URINE BARBITURATES SCREEN NEGATIVE; URINE METHADONE SCREEN NEGATIVE; URINE OPIATES LOW NEGATIVE; URINE PHENCYCLIDINE SCREEN NEGATIVE
[2017-01-01] MEDS: BUDESONIDE/FORMOTEROL 160-4.5 MCG 60 PUFF/6 GM MDI IH SCH (21:30)
[2017-01-01] MEDS: FLUTICASONE NASAL SPRAY 50 MCG/SPRY 120 SPRAY/16 GM NAREB SCH (21:30)
[2017-01-01] MEDS: CARVEDILOL 12.5 MG TABLET PO SCH (21:56)
[2017-01-01] MEDS: TIMOLOL MALEATE 0.5% OPH SOLN 5 ML OU SCH (21:56)
[2017-01-01] MEDS: MIRTAZAPINE 15 MG TABLET PO SCH (21:57)
[2017-01-01] MEDS: HEPARIN SOD (PORCINE) 5,000 UNIT/ML 1 ML SYRINGE SUBCUT SCH (23:44)
[2017-01-01] MEDS: INSULIN DETEMIR 100 UNIT/ML 3 ML PEN SUBCUT SCH (23:45)
[2017-01-01 23:58] LABS: CREATINE KINASE MB 0.36 ng/mL (<4.55)
[2017-01-02 00:06] LABS: TROPONIN I < 0.012 ng/mL
[2017-01-02] MEDS: HEPARIN SOD (PORCINE) 5,000 UNIT/ML 1 ML SYRINGE SUBCUT SCH ×2 (06:08→18:17)
[2017-01-02 06:52] LABS: ABSOLUTE BASOPHILS # (AUTO) 0.1 10^3/uL (0.0-0.2); ABSOLUTE EOSINOPHILS # (AUTO) 0.1 10^3/uL (0.0-0.6); ABSOLUTE LYMPHOCYTES (AUTO) 0.7 10^3/uL (0.5-4.7); ABSOLUTE MONOCYTES (AUTO) 0.5 10^3/uL (0.1-1.4); ABSOLUTE NEUT (AUTO) 3.7 10^3/uL (1.7-8.2); BASOPHILS % (AUTO) 1.5 % (0-2); EOSINOPHILS % (AUTO) 1.8 % (0-6); HEMATOCRIT 36.5 % (36.0-47.0); HEMOGLOBIN 12.1 g/dL (12.0-15.5); HGB HCT DIFFERENCE -0.2; LYMPHOCYTES % (AUTO) 14.1 % (13-45); MEAN CORPUSCULAR HEMOGLOBIN 28.9 pg (27.0-33.4); MEAN CORPUSCULAR HGB CONC 33.3 g/dL (32.0-36.0); MEAN CORPUSCULAR VOLUME 87 fl (80-97); MONOCYTES % (AUTO) 10.7 % (3-13); RED CELL DISTRIBUTION WIDTH 17.3 % (11.5-14.0); SEGMENTED NEUTROPHILS % (AUTO) 71.9 % (42-78); WHITE BLOOD COUNT 5.1 10^3/uL (4.0-10.5)
[2017-01-02 07:05] LABS: ALANINE AMINOTRANSFERASE 21 U/L (9-52); ALKALINE PHOSPHATASE 104 U/L (38-126); ANION GAP 14 (5-19); ASPARTATE AMINO TRANSFERASE 18 U/L (14-36); BILIRUBIN,DIRECT 0.4 mg/dL (0.0-0.4); BLOOD UREA NITROGEN 9 mg/dL (7-20); CALCIUM 8.8 mg/dL (8.4-10.2); CARBON DIOXIDE 25 mmol/L (22-30); CHLORIDE 100 mmol/L (98-107); CHOLESTEROL 119.51 mg/dL (0-200); CREATINE KINASE 22 U/L (30-135); CREATININE RESULT 4.14 mg/dL (0.52-1.25); Direct HDL 50 mg/dL (>40); GLUCOSE 126 mg/dL (75-110); POTASSIUM 4.4 mmol/L (3.6-5.0); SODIUM 138.5 mmol/L (137-145); TOTAL PROTEIN 7.1 g/dL (6.3-8.2); TRIGLYCERIDES 54 mg/dL (<150)
[2017-01-02 07:19] LABS: DIRECT LDL < 30 mg/dL (<100)
[2017-01-02 07:20] LABS: CREATINE KINASE MB 0.47 ng/mL (<4.55)
[2017-01-02 07:25] LABS: TROPONIN I < 0.012 ng/mL
[2017-01-02] MEDS: LANSOPRAZOLE 15 MG TAB.RAP.DR PO SCH (10:32)
[2017-01-02] MEDS: FUROSEMIDE 40 MG TABLET PO SCH ×2 (10:32→19:26)
[2017-01-02] MEDS: CALCIUM ACETATE 667 MG CAPSULE PO SCH ×2 (10:32→18:16)
[2017-01-02] MEDS: TIMOLOL MALEATE 0.5% OPH SOLN 5 ML OU SCH ×2 (10:33→23:33)
[2017-01-02] MEDS: CEFTRIAXONE 1 GM/D5W RTU 1 GM/50 ML RTUPB IV SCH (10:33)
[2017-01-02] MEDS: BUDESONIDE/FORMOTEROL 160-4.5 MCG 60 PUFF/6 GM MDI IH SCH (10:33)
[2017-01-02] MEDS: FLUTICASONE NASAL SPRAY 50 MCG/SPRY 120 SPRAY/16 GM NAREB SCH (10:33)
[2017-01-02] MEDS: INSULIN DETEMIR 100 UNIT/ML 3 ML PEN SUBCUT SCH (10:34)
[2017-01-02] MEDS: CARVEDILOL 12.5 MG TABLET PO SCH (10:43)
[2017-01-02] MEDS: SITAGLIPTIN PHOSPHATE 25 MG TABLET PO SCH (10:43)
[2017-01-02] MEDS ORDERED: ALBUTEROL SULFATE HFA (90 MCG/PUFF) 200 PUFF/8.5 GM MDI IH PRN (12:30)
--- NOTE | 2017-01-02 12:51 | PDOC H&P ---
History of Present Illness Admission Date/PCP: 01/01/17 17:34 ALONDRA PHILLIPS MD History of Present Illness: VAISHALI GODOY is a 86 year old female with end-stage renal disease on maintenance hemodialysis, diabetes mellitus type 2 with complications, dementia , progressive she was very confused, she fell and sustained injury to the face and the head. There are multiple bruises on the face, there is severe ecchymosis around both eyeball. The history was that patient was trying to get out of bed at night the daughter kept in the room and tried to secure the room with kitchen high chairs but she was able to get around the chairs and in the process she fell and sustained a head face and neck injuries. In the emergency room she was evaluated CAT scan of the head and neck was done there was no acute pathology found on the CAT scan. When I spoke to the daughter she stated that patient is more confused than usual suggesting there could be an acute intercurrent illness that is ongoing, and emergency room urinalysis was done it was grossly abnormal and urine culture is growing gram-negative rods. She probably have a component of metabolic encephalopathy due to gram-negative UTI in addition to the underlying dementia. She is also on maintenance hemodialysis , it seems to me that patient's family can no longer take care of her at home, she will be admitted to the hospital she be treated for UTI with IV antibiotic and she be discharged to long-term care facility probably a intermediate home. When I saw she was confused though she recognizes me but she is not able to get her thoughts process together as to where I am presently. Past Medical History Cardiac Medical History: Reports: Congestive Heart Failure - Chronic diastolic dysfunction, pulmonary hypertension, Coronary Artery Disease, Hyperlipidema, Hypertension - on meds Pulmonary Medical History: Reports: Asthma - inhalers, Bronchitis - hx of, Chronic Obstructive Pulmonary Disease (COPD), Pneumonia - hx of, Sleep Apnea Neurological Medical History: Denies: Seizures Endocrine Medical History: Reports: Diabetes Mellitus Type 2 Renal/ Medical History: Reports: End Stage Renal Disease - End-stage renal disease on maintenance hemodialysis Musculoskeltal Medical History: Reports: 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 Psychiatric Medical History: Reports: Dementia Hematology: Reports: Anemia - hx of Infectious Medical History: Reports: Methicillin-Resistant Staph Aureus Past Surgical History Past Surgical History: Reports: Cardiac Catheterization - cardiac stent 2010, Coronary Stent, Orthopedic Surgery - Back surgery, Vascular Surgery - Fistula to the right arm for dialysis Social History Lives with: Family Smoking Status: Never Smoker Frequency of Alcohol Use: None Hx Recreational Drug Use: No Drugs: None Hx Prescription Drug Abuse: No Family History Family History: Reviewed & Not Pertinent, Other - Unable to obtain due to dementia Parental Family History Reviewed: Yes Children Family History Reviewed: Yes Sibling(s) Family History Reviewed.: Yes Medication/Allergy Home Medications: Acetaminophen [Tylenol Arthritis 650 mg Tablet] 650 mg PO Q6HP PRN 11/18/16 Albuterol Sulfate [Ventolin Hfa] 2 puff IH Q4HP PRN 11/18/16 Aspirin [Aspirin 81 mg Chewable Tablet] 81 mg PO DAILY 11/18/16 Brimonidine Tartrate [Alphagan P] 1 drop OU Q12 11/18/16 Budesonide/Formoterol Fumarate [Symbicort HFA 160-4.5 mcg Inhaler 6 gm] 2 puff IH Q12 11/18/16 Calcium Acetate [Phoslo 667 mg Capsule] 667 mg PO MEALS 11/18/16 Carvedilol [Coreg 12.5 mg Tablet] 37.5 mg PO Q12 11/18/16 Cetirizine HCl [Zyrtec Oral Soln 5 mg/5 ml Udcup] 10 mg PO DAILY 11/18/16 Citalopram Hydrobromide [Celexa 20 mg Tablet] 20 mg PO DAILY 11/18/16 Docusate Sodium [Colace 100 mg Capsule] 100 mg PO DAILY 11/18/16 Epoetin Johnathan [Procrit Inj 20,000 Unit/1 ml Vial (Renal)] 20,000 unit IV TUTHSA@ 1000 11/18/16 Fluticasone Propionate [Flonase Nasal [place] 50 Mcg/[place] 16 gm] 1 spray NAREB Q12 11/18/16 Folic Acid/Vitamin B Comp W-C [Nephrocaps Multiple Vitamin Capsule] 1 cap PO DAILY 11/18/16 Furosemide [Lasix 40 mg Tablet] 40 mg PO BID 11/18/16 Guaifenesin/Dextromethorphan [Guaifenesin Dm Syrup] 10 ml PO Q4HP PRN 11/18/16 Insulin Aspart [Novolog Flexpen] 5 unit SUBCUT AC 11/18/16 Insulin Detemir [Levemir Flextouch] 10 unit SQ QHS 11/18/16 Insulin Detemir [Levemir Flextouch] 30 unit SQ QAM 11/18/16 Linagliptin [Tradjenta] 5 mg PO DAILY 11/18/16 Mirtazapine 7.5 mg PO QHS 11/18/16 Omeprazole 20 mg PO DAILY 11/18/16 Timolol Maleate 1 drop OU Q12 11/18/16 Allergies/Adverse Reactions: ciprofloxacin [Ciprofloxacin] Allergy (Severe, Verified 08/23/16 20:22) rash sulfamethoxazole [Sulfamethoxazole] Allergy (Unknown, Verified 08/23/16 20:22) rash Review of Systems ROS unobtainable: Other - Review of system unobtainable because of confusion, disorientation to time and place Physical Exam Vital Signs: Temp Pulse Resp BP Pulse Ox 97.9 F 76 14 180/86 H 98 01/02/17 07:44 01/02/17 07:44 01/02/17 07:44 01/02/17 07:44 01/02/17 07:44 Intake & Output 01/01/17 01/02/17 01/03/17 06:59 06:59 06:59 Intake Total 78 Balance 78 Weight 71.4 kg General appearance: PRESENT: other - Elderly female obese with facial bruises Eye exam: PRESENT: other - There is severe ecchymosis around both eyeball Neck exam: PRESENT: full ROM Respiratory exam: PRESENT: rhonchi, wheezes Cardiovascular exam: PRESENT: RRR, +S1, +S2 Vascular exam: PRESENT: normal capillary refill GI/Abdominal exam: PRESENT: normal bowel sounds, soft Rectal exam: PRESENT: deferred Neurological exam: PRESENT: alert, CN II-XII grossly intact Skin exam: PRESENT: dry, intact, warm Results Laboratory Results: 01/02/17 06:07 01/02/17 06:07 01/01/17 01/02/17 01/02/17 19:50 06:07 06:07 WBC 5.1 RBC 4.20 Hgb 12.1 Hct 36.5 MCV 87 MCH 28.9 MCHC 33.3 RDW 17.3 H Plt Count 194 Seg Neutrophils % 71.9 Lymphocytes % 14.1 Monocytes % 10.7 Eosinophils % 1.8 Basophils % 1.5 Absolute Neutrophils 3.7 Absolute Lymphocytes 0.7 Absolute Monocytes 0.5 Absolute Eosinophils 0.1 Absolute Basophils 0.1 Sodium 138.5 Potassium 4.4 Chloride 100 Carbon Dioxide 25 Anion Gap 14 BUN 9 Creatinine 4.14 H Est GFR ( Amer) 12 L Est GFR (Non-Af Amer) 10 L Glucose 126 H Calcium 8.8 Total Bilirubin 1.0 AST 18 ALT 21 Alkaline Phosphatase 104 Ammonia < 8.7 L Total Protein 7.1 Albumin 3.0 L Triglycerides 54 Cholesterol 119.51 LDL Cholesterol Direct < 30 VLDL Cholesterol 11.0 HDL Cholesterol 50 01/01/17 01/01/17 01/02/17 23:20 23:20 06:07 Creatine Kinase 23 L 22 L CK-MB (CK-2) 0.36 Troponin I < 0.012 01/02/17 06:07 Creatine Kinase CK-MB (CK-2) 0.47 Troponin I < 0.012 Impressions: Cervical Spine CT 01/01/17 08:43 IMPRESSION: Considerable motion artifact. No fracture identified. If clinical suspicion of fracture persists, repeat imaging when the patient is more stable is recommended. Head CT 01/01/17 08:43 IMPRESSION: No visualized intracranial hemorrhage or fracture. Frontal soft tissue swelling. Significant patient motion limits evaluation of the lower cerebrum, skullbase and posterior fossa. Repeat exam recommended if there is high clinical suspicion. Hip X-Ray 01/01/17 08:43 IMPRESSION: No acute finding. Assessment & Plan - Diagnosis (1) Urinary tract infection Qualifiers: Urinary tract infection type: site unspecified Hematuria presence: without hematuria Qualified Code(s): N39.0 - Urinary tract infection, site not specified Is this a current diagnosis for this admission?: YesPlan: Start IV antibiotic (2) Metabolic encephalopathy Is this a current diagnosis for this admission?: Yes (3) Severe persistent allergic asthma with acute exacerbation Is this a current diagnosis for this admission?: YesPlan: Start bronchodilators (4) End-stage renal disease on hemodialysis Is this a current diagnosis for this admission?: YesPlan: Consultation from nephrology
[2017-01-02] MEDS ORDERED: EPINEPHRINE INJ 1 MG/10 ML DISP.SYRIN ONE (14:30)
[2017-01-02] MEDS ORDERED: GLUCAGON,HUMAN RECOMB 1 MG INJ ONE (16:36)
[2017-01-02] MEDS ORDERED: LEVOFLOXACIN 750 MG TABLET PO SCH (18:00)
--- NOTE | 2017-01-02 18:03 | PDOC CONSULTATION ---
Consultation Consult Date: 01/02/17 Attending physician:: ALONDRA PHILLIPS Consult reason:: I was asked by Dr. Phillips to see the patient to supervise dialysis while here in the hospital. History of Present Illness Admission Date/PCP: 01/01/17 17:34 ALONDRA PHILLIPS MD History of Present Illness: VAISHALI GODOY is a 86 year old female with end-stage renal disease on maintenance hemodialysis, diabetes mellitus type 2 with complications, dementia , progressive who presented with confusion.She fell and sustained injury to the face and the head. There are multiple bruises on the face, there is severe ecchymosis around both eyeball. The history was that patient was trying to get out of bed at night the daughter kept in the room and tried to secure the room with kitchen high chairs but she was able to get around the chairs and in the process she fell and sustained a head face and neck injuries. In the emergency room she was evaluated CAT scan of the head and neck was done there was no acute pathology found on the CAT scan. The daughter she stated that patient is more confused than usual suggesting there could be an acute intercurrent illness that is ongoing, and emergency room urinalysis was done it was grossly abnormal and urine culture is growing gram-negative rods. She probably have a component of metabolic encephalopathy due to gram-negative UTI in addition to the underlying dementia. She is also on maintenance hemodialysis, it seems to me that patient's family can no longer take care of her at home, she was admitted to the hospital she be treated for UTI with IV antibiotic and she be discharged to long-term care facility probably a senior care home. When I saw the patient today she is very lethargic due to low blood sugar of around 20-32 according to the nurse. She does have a good IV line so they are giving D5 W through a gauge 24 IV. Central line has been ordered but has not been placed yet. The daughter is at bedside and confirmed the history above. Daughter said that throughout the course of the night prior to admission she found the patient getting out of her barricade until she fell the third time that she got up the bed. Patient currently just opens her eyes but no other history could be obtained. Daughter said that yesterday she was pretty much awake although confused. Patient is maintained on hemodialysis on Tuesdays, and Saturdays. Her last dialysis was last Friday. I saw her during that time and she seems to be in her baseline state with the usual mental state consistent with her progressive dementia. Today is her dialysis day but there is no indication for urgent dialysis and we don't have a regular dialysis here in the hospital today so we will plan to do dialysis tomorrow. 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 Psychiatric Medical History: Reports: Dementia Infectious Medical History: Reports: Methicillin-resist Staph Aureus Hematology Medical History: Reports Anemia of Chronic Kidney Disease Past Surgical History Past Surgical History: Reports: Cardiac Catheterization - cardiac stent 2010, Coronary Stent, Dialysis Access Surgery AVF, Orthopedic Surgery - Back surgery, Vascular Surgery - Fistula to the right arm for dialysis Social History Information Source: [facility] Records Lives with: Family Smoking Status: Never Smoker Frequency of Alcohol Use: None Hx Recreational Drug Use: No Drugs: None Hx Prescription Drug Abuse: No Family History Family History: Other Parental Family History Reviewed: No - could not be obtained currently due to patient's mental status Children Family History Reviewed: Unknown Sibling(s) Family History Reviewed.: Unknown Medication/Allergy Home Medications: Acetaminophen [Tylenol Arthritis 650 mg Tablet] 650 mg PO Q6HP PRN 11/18/16 Albuterol Sulfate [Ventolin Hfa] 2 puff IH Q4HP PRN 11/18/16 Aspirin [Aspirin 81 mg Chewable Tablet] 81 mg PO DAILY 11/18/16 Brimonidine Tartrate [Alphagan P] 1 drop OU Q12 11/18/16 Budesonide/Formoterol Fumarate [Symbicort HFA 160-4.5 mcg Inhaler 6 gm] 2 puff IH Q12 11/18/16 Calcium Acetate [Phoslo 667 mg Capsule] 667 mg PO MEALS 11/18/16 Carvedilol [Coreg 12.5 mg Tablet] 37.5 mg PO Q12 11/18/16 Cetirizine HCl [Zyrtec Oral Soln 5 mg/5 ml Udcup] 10 mg PO DAILY 11/18/16 Citalopram Hydrobromide [Celexa 20 mg Tablet] 20 mg PO DAILY 11/18/16 Docusate Sodium [Colace 100 mg Capsule] 100 mg PO DAILY 11/18/16 Epoetin Johnathan [Procrit Inj 20,000 Unit/1 ml Vial (Renal)] 20,000 unit IV TUTHSA@ 1000 11/18/16 Fluticasone Propionate [Flonase Nasal [place] 50 Mcg/[place] 16 gm] 1 spray NAREB Q12 11/18/16 Folic Acid/Vitamin B Comp W-C [Nephrocaps Multiple Vitamin Capsule] 1 cap PO DAILY 11/18/16 Furosemide [Lasix 40 mg Tablet] 40 mg PO BID 11/18/16 Guaifenesin/Dextromethorphan [Guaifenesin Dm Syrup] 10 ml PO Q4HP PRN 11/18/16 Insulin Aspart [Novolog Flexpen] 5 unit SUBCUT AC 11/18/16 Insulin Detemir [Levemir Flextouch] 10 unit SQ QHS 11/18/16 Insulin Detemir [Levemir Flextouch] 30 unit SQ QAM 11/18/16 Linagliptin [Tradjenta] 5 mg PO DAILY 11/18/16 Mirtazapine 7.5 mg PO QHS 11/18/16 Omeprazole 20 mg PO DAILY 11/18/16 Timolol Maleate 1 drop OU Q12 11/18/16 Allergies/Adverse Reactions: ciprofloxacin [Ciprofloxacin] Allergy (Severe, Verified 08/23/16 20:22) rash sulfamethoxazole [Sulfamethoxazole] Allergy (Unknown, Verified 08/23/16 20:22) rash Review of Systems ROS unobtainable: Due to mental status Physical Exam Vital Signs: Temp Pulse Resp BP Pulse Ox 97.3 F 64 16 151/58 H 100 01/02/17 15:41 01/02/17 15:41 01/02/17 15:41 01/02/17 15:41 01/02/17 15:41 Intake & Output 01/01/17 01/02/17 01/03/17 06:59 06:59 06:59 Intake Total 78 Balance 78 Weight 71.4 kg Exam: General appearance: no acute distress, cooperative, well-developed, well- nourished Head exam: PRESENT: normocephalic, patient has ecchymosis around bilateral eyes as well as her for head. Eye exam: PRESENT: Conjunctiva [place], EOMI, PERRLA. ABSENT: conjunctival injection, scleral icterus Mouth exam: PRESENT: moist, neck supple, tongue midline Neck exam: PRESENT: full ROM. ABSENT: carotid bruit, JVD, lymphadenopathy, thyromegaly Respiratory exam: PRESENT: Diminished auscultation bilaterally. She has an upper airway coarse breath sounds could be heard to her lung [place] ABSENT: rales, rhonchi, stridor, wheezes Cardiovascular exam: PRESENT: RRR, +S1, +S2. ABSENT: systolic murmur Pulses: PRESENT: normal radial pulses, normal dorsalis pedis pulses GI/Abdominal exam: PRESENT: normal bowel sounds, soft. ABSENT: guarding, mass, tenderness Rectal exam: deferred Extremities exam: PRESENT: full ROM. ABSENT: calf tenderness, pedal edema Musculoskeletal: PRESENT: full ROM. ABSENT: deformity Neurological exam: PRESENT: Lethargic, reflexes normal, CN II-XII grossly intact. ABSENT: motor sensory deficit Psychiatric exam: PRESENT: Lethargic. ABSENT: homicidal ideation, suicidal ideation Skin exam: PRESENT: intact, dry, warm. ABSENT: rash Results Laboratory Results: 01/02/17 06:07 01/02/17 06:07 01/01/17 01/02/17 01/02/17 19:50 06:07 06:07 WBC 5.1 RBC 4.20 Hgb 12.1 Hct 36.5 MCV 87 MCH 28.9 MCHC 33.3 RDW 17.3 H Plt Count 194 Seg Neutrophils % 71.9 Lymphocytes % 14.1 Monocytes % 10.7 Eosinophils % 1.8 Basophils % 1.5 Absolute Neutrophils 3.7 Absolute Lymphocytes 0.7 Absolute Monocytes 0.5 Absolute Eosinophils 0.1 Absolute Basophils 0.1 Sodium 138.5 Potassium 4.4 Chloride 100 Carbon Dioxide 25 Anion Gap 14 BUN 9 Creatinine 4.14 H Est GFR ( Amer) 12 L Est GFR (Non-Af Amer) 10 L Glucose 126 H Calcium 8.8 Total Bilirubin 1.0 AST 18 ALT 21 Alkaline Phosphatase 104 Ammonia < 8.7 L Total Protein 7.1 Albumin 3.0 L Triglycerides 54 Cholesterol 119.51 LDL Cholesterol Direct < 30 VLDL Cholesterol 11.0 HDL Cholesterol 50 01/01/17 01/01/17 01/02/17 23:20 23:20 06:07 Creatine Kinase 23 L 22 L CK-MB (CK-2) 0.36 Troponin I < 0.012 01/02/17 06:07 Creatine Kinase CK-MB (CK-2) 0.47 Troponin I < 0.012 Impressions: Cervical Spine CT 01/01/17 08:43 IMPRESSION: Considerable motion artifact. No fracture identified. If clinical suspicion of fracture persists, repeat imaging when the patient is more stable is recommended. Head CT 01/01/17 08:43 IMPRESSION: No visualized intracranial hemorrhage or fracture. Frontal soft tissue swelling. Significant patient motion limits evaluation of the lower cerebrum, skullbase and posterior fossa. Repeat exam recommended if there is high clinical suspicion. Hip X-Ray 01/01/17 08:43 IMPRESSION: No acute finding. Assessment & Plan - Diagnosis (1) Hypoglycemia Is this a current diagnosis for this admission?: YesPlan: This is due to poor oral intake. Currently being given D5W due to poor IV access. Order for placement of central line was given and is just awaiting placement by one of the surgeons. (2) Fall Qualifiers: Encounter type: initial encounter Qualified Code(s): W19.XXXA - Unspecified fall, initial encounter Is this a current diagnosis for this admission?: YesPlan: Follow-up all fall precautions while here in the hospital. Agree with senior care facility placement since daughter is unable to take care of her anymore. (3) Contusion of face Is this a current diagnosis for this admission?: Yes (4) End-stage renal disease on hemodialysis Is this a current diagnosis for this admission?: YesPlan: We'll plan to do dialysis tomorrow. (5) Metabolic encephalopathy Is this a current diagnosis for this admission?: YesPlan: Due to UTI with underlying progressive dementia. (6) UTI (urinary tract infection) Qualifiers: Urinary tract infection type: site unspecified Hematuria presence: with hematuria Qualified Code(s): N39.0 - Urinary tract infection, site not specified Is this a current diagnosis for this admission?: YesPlan: Due to gram-negative organisms. Currently being given IV ceftriaxone. - Notes Notes: Thank you very much for this consultation. - Time Time Spent: 50 to 70 Minutes
[2017-01-02] MEDS: EPOETIN ALFA INJ 20000 UNIT/1 ML VIAL (RENAL) IV SCH (18:16)
[2017-01-02] MEDS: DOCUSATE SODIUM 100 MG CAPSULE PO SCH (19:26)
[2017-01-02] MEDS: CITALOPRAM HYDROBROMIDE 20 MG TABLET PO SCH (19:26)
[2017-01-02] MEDS: CETIRIZINE HCL ORAL SOLN 5 MG/5 ML UDCUP PO SCH (19:26)
[2017-01-02] MEDS: ASPIRIN 81 MG TABLET, CHEWABLE PO SCH (19:26)
[2017-01-02] MEDS: IPRATROPIUM/ALBUTEROL 0.5-2.5 MG/3 ML AMPUL NEB PRN (20:14)
--- NOTE | 2017-01-02 20:16 | PDOC PROGRESS REPORT ---
Subjective Progress Note for:: 01/02/17 Subjective:: She was seen by the bedside, she had episode of hypoglycemia today and she was given glucagon and 50% dextrose, yesterday she was admitted with UTI and she was started on IV Rocephin there was slight improvement in the mental status this morning due to the IV Rocephin, but now she is on altered mental status very stuporous due to hypoglycemia. She does have diarrhea, profuse ,probably infectious, to be sent for C. difficile toxin Physical Exam Vital Signs: Temp Pulse Resp BP Pulse Ox 97.3 F 64 16 151/58 H 100 01/02/17 15:41 01/02/17 15:41 01/02/17 15:41 01/02/17 15:41 01/02/17 15:41 Intake & Output 01/01/17 01/02/17 01/03/17 06:59 06:59 06:59 Intake Total 78 75 Balance 78 75 Weight 71.4 kg General appearance: PRESENT: obese Respiratory exam: PRESENT: wheezes Cardiovascular exam: PRESENT: +S1, +S2 GI/Abdominal exam: PRESENT: soft Neurological exam: PRESENT: altered Results Laboratory Results: 01/02/17 06:07 01/02/17 06:07 01/01/17 01/02/17 01/02/17 19:50 06:07 06:07 WBC 5.1 RBC 4.20 Hgb 12.1 Hct 36.5 MCV 87 MCH 28.9 MCHC 33.3 RDW 17.3 H Plt Count 194 Seg Neutrophils % 71.9 Lymphocytes % 14.1 Monocytes % 10.7 Eosinophils % 1.8 Basophils % 1.5 Absolute Neutrophils 3.7 Absolute Lymphocytes 0.7 Absolute Monocytes 0.5 Absolute Eosinophils 0.1 Absolute Basophils 0.1 Sodium 138.5 Potassium 4.4 Chloride 100 Carbon Dioxide 25 Anion Gap 14 BUN 9 Creatinine 4.14 H Est GFR ( Amer) 12 L Est GFR (Non-Af Amer) 10 L Glucose 126 H Calcium 8.8 Total Bilirubin 1.0 AST 18 ALT 21 Alkaline Phosphatase 104 Ammonia < 8.7 L Total Protein 7.1 Albumin 3.0 L Triglycerides 54 Cholesterol 119.51 LDL Cholesterol Direct < 30 VLDL Cholesterol 11.0 HDL Cholesterol 50 01/01/17 01/01/17 01/02/17 23:20 23:20 06:07 Creatine Kinase 23 L 22 L CK-MB (CK-2) 0.36 Troponin I < 0.012 01/02/17 06:07 Creatine Kinase CK-MB (CK-2) 0.47 Troponin I < 0.012 Impressions: Cervical Spine CT 01/01/17 08:43 IMPRESSION: Considerable motion artifact. No fracture identified. If clinical suspicion of fracture persists, repeat imaging when the patient is more stable is recommended. Head CT 01/01/17 08:43 IMPRESSION: No visualized intracranial hemorrhage or fracture. Frontal soft tissue swelling. Significant patient motion limits evaluation of the lower cerebrum, skullbase and posterior fossa. Repeat exam recommended if there is high clinical suspicion. Hip X-Ray 01/01/17 08:43 IMPRESSION: No acute finding. Assessment & Plan - Diagnosis (1) Urinary tract infection Qualifiers: Urinary tract infection type: site unspecified Hematuria presence: without hematuria Qualified Code(s): N39.0 - Urinary tract infection, site not specified Is this a current diagnosis for this admission?: Yes (2) Metabolic encephalopathy Is this a current diagnosis for this admission?: Yes (3) Severe persistent allergic asthma with acute exacerbation Is this a current diagnosis for this admission?: Yes (4) End-stage renal disease on hemodialysis Is this a current diagnosis for this admission?: Yes (5) Hypoglycemia Is this a current diagnosis for this admission?: YesPlan: Glucagon, 50% dextrose (6) Contusion of face Qualifiers: Encounter type: initial encounter Qualified Code(s): S00.83XA - Contusion of other part of head, initial encounter Is this a current diagnosis for this admission?: Yes
--- NOTE | 2017-01-02 22:46 | Operative Report ---
Operative Report DATE OF SURGERY: 01/02/17 PREOPERATIVE DIAGNOSIS: Critical need for intravenous access. Respiratory failure POSTOPERATIVE DIAGNOSIS: Same OPERATION: Attempted the central line placement under ultrasound guidance. Placement of external jugular intravenous line placed via Seldinger technique. SURGEON: REGINA HERNANDEZ ANESTHESIA: Local TISSUE REMOVED OR ALTERED: None COMPLICATIONS: None ESTIMATED BLOOD LOSS: minimal INTRAOPERATIVE FINDINGS: Possible left internal jugular vein occlusion PROCEDURE: Informed consent was obtained. Procedure was done at the patient's bedside. Patient's left neck was prepped and draped in usual sterile fashion. Local anesthetic was administered. Using ultrasound the the left internal jugular vein was visualized. However in placement of the seeker catheter failed to which on a blood despite the fact that the tip appeared to be within the center of the lumen. The external jugular vein appeared fairly prominent therefore introducer catheter was placed into the external jugular vein. The guidewire was only able to be fed in about 10 cm. Therefore a 18-gauge IV catheter was placed via the Seldinger technique into the external jugular vein. It withdrew blood and flushed easily. It was secured in place. Patient tolerated procedure well with no apparent complications.
[2017-01-02] MEDS ORDERED: DEXTROSE 50%-WATER 25 GM/50 ML DISP.SYRIN IV ONE (23:52)
[2017-01-02] MEDS ORDERED: LORAZEPAM INJ 2 MG/1 ML VIAL ONE (23:59)
[2017-01-03 00:06] LABS: ARTERIAL BLOOD BASE EXCESS 0.8 mmol/L; ARTERIAL BLOOD O2 SATURATION 97.7 % (94-98)
--- NOTE | 2017-01-03 00:18 | PDOC PROGRESS REPORT ---
Bedside Procedure - History of Present Illness History of Present Illness: CAROLINE WALDROP was called on this patient for cardiopulmonary arrest. Upon arrival was reported that the patient had been having decreased responsiveness and had agonal respirations and had a period of PEA. Upon my examination the patient had a palpable femoral pulse with a narrow complex tachycardia. She had agonal respirations and was being assisted with bag valve mask. Accu-Chek showed a blood glucose of 11 but the patient did not respond to 2 A of D50 through a left external jugular IV. As she was having difficulty maintaining her airway and attempted intubation but she did have some gag reflex. She was suctioned and as she did not improve rocuronium 50 mg was used with Ativan 2 mg IV with intubation with a 7.5 endotracheal tube with direct visualization of the cords. Breath sounds were equal bilaterally though slightly increased on the right compared to the left C2 was repositioned and fixed in place with x-ray pending. Primary care physician has been contacted and will be transporting the patient to the ICU with the hospitalist covering further. She is maintaining a stable blood pressure and pulse oxygenation at this point with x-ray pending.
[2017-01-03 01:09] LABS: HEMATOCRIT 36.4 % (36.0-47.0); HEMOGLOBIN 11.9 g/dL (12.0-15.5); HGB HCT DIFFERENCE -0.7; MEAN CORPUSCULAR HEMOGLOBIN 28.2 pg (27.0-33.4); MEAN CORPUSCULAR HGB CONC 32.8 g/dL (32.0-36.0); MEAN CORPUSCULAR VOLUME 86 fl (80-97); RED BLOOD COUNT 4.23 10^6/uL (3.72-5.28); RED CELL DISTRIBUTION WIDTH 17.5 % (11.5-14.0); WHITE BLOOD COUNT 7.8 10^3/uL (4.0-10.5)
[2017-01-03 01:10] LABS: ARTERIAL BLOOD BASE EXCESS 0.2 mmol/L; ARTERIAL BLOOD O2 SATURATION 99.8 % (94-98)
[2017-01-03] MEDS ORDERED: NOREPINEPHRINE BITARTRATE INJ/PF 4 MG/4 ML SDV IV ONE ×2 (03:20→18:56)
[2017-01-03 03:27] LABS: PROTHROMBIN TIME 15.4 SEC (11.4-15.4)
[2017-01-03 03:35] LABS: ALANINE AMINOTRANSFERASE 26 U/L (9-52); ALBUMIN 2.2 g/dL (3.5-5.0); ALKALINE PHOSPHATASE 65 U/L (38-126); ANION GAP 10 (5-19); ASPARTATE AMINO TRANSFERASE 26 U/L (14-36); BILIRUBIN,DIRECT 0.4 mg/dL (0.0-0.4); BILIRUBIN,TOTAL 0.8 mg/dL (0.2-1.3); BLOOD UREA NITROGEN 15 mg/dL (7-20); CALCIUM 8.9 mg/dL (8.4-10.2); CARBON DIOXIDE 24 mmol/L (22-30); CHLORIDE 106 mmol/L (98-107); CREATININE RESULT 4.65 mg/dL (0.52-1.25); GLUCOSE 44 mg/dL (75-110); MAGNESIUM 1.7 mg/dL (1.6-2.3); PHOSPHORUS 3.3 mg/dL (2.5-4.5); POTASSIUM 3.9 mmol/L (3.6-5.0); SODIUM 139.7 mmol/L (137-145); TOTAL PROTEIN 5.8 g/dL (6.3-8.2)
[2017-01-03] MEDS ORDERED: NOREPINEPHRINE BITARTRATE INJ/PF 4 MG/4 ML SDV IV PRN (03:39)
[2017-01-03] MEDS ORDERED: DEXTROSE 50%-WATER 25 GM/50 ML DISP.SYRIN IV ONE (03:57)
[2017-01-03] MEDS: CARVEDILOL 12.5 MG TABLET PO SCH ×3 (04:11→22:10)
[2017-01-03] MEDS: FLUTICASONE NASAL SPRAY 50 MCG/SPRY 120 SPRAY/16 GM NAREB SCH ×3 (04:11→22:10)
[2017-01-03] MEDS: INSULIN DETEMIR 100 UNIT/ML 3 ML PEN SUBCUT SCH ×2 (04:11→08:09)
[2017-01-03] MEDS: BUDESONIDE/FORMOTEROL 160-4.5 MCG 60 PUFF/6 GM MDI IH SCH ×3 (04:11→22:10)
[2017-01-03] MEDS: MIRTAZAPINE 15 MG TABLET PO SCH ×2 (04:11→22:10)
[2017-01-03] MEDS: HEPARIN SOD (PORCINE) 5,000 UNIT/ML 1 ML SYRINGE SUBCUT SCH ×4 (04:11→22:10)
[2017-01-03] MEDS: DEXTROSE 5%-WATER 250 ML with NOREPINEPHRINE BITARTRATE 4 MG IV PRN ×2 (04:30)
[2017-01-03] MEDS: DEXTROSE 5%-NORMAL SALINE 1,000 ML IV PRN (04:31)
--- NOTE | 2017-01-03 07:16 | EKG REPORT ---
SEVERITY:- ABNORMAL ECG - SINUS RHYTHM ATRIAL PREMATURE COMPLEX RIGHT BUNDLE BRANCH BLOCK NONSPECIFIC ST-T CHANGES- INFERIOR-LATERAL LEADS : Confirmed by: Vincenzo Vasquez MD 03-Jan-2017 07:15:40
[2017-01-03] MEDS: PROPOFOL 100 ML IV PRN ×4 (08:07→20:53)
[2017-01-03] MEDS: CALCIUM ACETATE 667 MG CAPSULE PO SCH ×3 (08:09→16:30)
[2017-01-03] MEDS ORDERED: ROCURONIUM BROMIDE INJ 50 MG/5 ML VIAL IV ONE (08:23)
--- NOTE | 2017-01-03 08:52 | Progress Note ---
Provider Note Provider Note: 01/02/2017: Approximately midnight, rapid response was called for the patient. This rather quickly transitioned into full ACLS CODE BLUE. I arrived at the bedside moments later. Full ACLS CODE BLUE maneuvers were being performed and were continued. Pulseless electrical activity noted on the monitor. Pulse rather quickly returned with treatment. Was noted to be hypoglycemic, with Accu-Chek of 11. 2 ampules of 50% dextrose given. Emergency room physician arrived and intubated patient for airway control. She remained quite somnolent. Postintubation chest x-ray #1 revealed tip of endotracheal tube to be at the entrance of the right mainstem bronchus. ET tube pulled back 2 cm, with second film revealing a much more appropriate location for the endotracheal tube. Films were reviewed on the x-ray machine itself at the bedside. Primary care provider had been contacted by phone and took over control of the patient. 30 minutes critical care time spent in direct patient evaluation, chart review, multiple discussions with nursing staff, review of x-ray images, ACLS management , and discussion with the emergency room physician at bedside who performed the endotracheal intubation.
[2017-01-03] MEDS: CEFTRIAXONE 1 GM/D5W RTU 1 GM/50 ML RTUPB IV SCH (11:30)
[2017-01-03] MEDS: LANSOPRAZOLE 15 MG TAB.RAP.DR PO SCH (11:31)
[2017-01-03] MEDS: FUROSEMIDE 40 MG TABLET PO SCH ×2 (11:32→16:31)
[2017-01-03] MEDS: SITAGLIPTIN PHOSPHATE 25 MG TABLET PO SCH (11:33)
[2017-01-03] MEDS: TIMOLOL MALEATE 0.5% OPH SOLN 5 ML OU SCH ×2 (11:33→22:09)
[2017-01-03] MEDS ORDERED: LACTOBACILLUS ACIDOPHILUS 250 MG TAB PO ONE (12:00)
--- NOTE | 2017-01-03 14:04 | PDOC PROGRESS REPORT ---
Subjective Progress Note for:: 01/03/17 Subjective:: Events overnight noted. Patient is now in ICU and is on mechanical ventilation and sedation. Patient also requires pressor with Levoped due to hypotension. She is also febrile. Patient is currently being dialyzed. Very minimal ultrafiltration will be obtained at most 500 mL today. Patient remains to be sedated and unresponsive. Pressor dose of Levoped needed to be increase during dialysis. Physical Exam Vital Signs: Temp Pulse Resp BP Pulse Ox 101.1 F H 62 20 125/55 L 100 01/03/17 12:00 01/03/17 12:00 01/03/17 13:30 01/03/17 13:24 01/03/17 13:30 Intake & Output 01/02/17 01/03/17 01/04/17 06:59 06:59 06:59 Intake Total 78 75 Output Total 60 10 Balance 78 15 -10 Weight 71.4 kg 72.7 kg Vital signs while was seeing her during dialysis: Blood pressure 142/55, heart rate of 64, respiration of 20 on mechanical ventilation, oxygen saturation 100% with FiO2 of 35%, blood flow rate of 300 mL per minute, dialysate flow rate of 600 mL per minute. Exam: General appearance: PRESENT: Patient is intubated and sedated Head exam: PRESENT: normocephalic, ecchymosis around both eyes and forehead unchanged. Eye exam: PRESENT: conjunctiva pink, PERRLA. ABSENT: scleral icterus Neck exam: ABSENT: JVD Respiratory exam: PRESENT: Coarse breath sounds. ABSENT: crackles, rales, rhonchi, unlabored, wheezes Cardiovascular exam: PRESENT: Regular rate rhythm -+S1, +S2. ABSENT: diastolic murmur, systolic murmur GI/Abdominal exam: PRESENT: normal bowel sounds, soft. ABSENT: guarding, mass, tenderness Extremities exam: ABSENT: No edema Neurological exam: PRESENT: Sedated Skin exam: PRESENT: dry, warm, Results Laboratory Results: 01/03/17 00:53 01/03/17 03:13 01/02/17 01/03/17 01/03/17 23:45 00:53 00:53 WBC 7.8 RBC 4.23 Hgb 11.9 L Hct 36.4 MCV 86 MCH 28.2 MCHC 32.8 RDW 17.5 H Plt Count 182 Carbonic Acid 1.81 H HCO3/H2CO3 Ratio 15:1 ABG pH 7.30 L ABG pCO2 60.0 H ABG pO2 116.1 H ABG HCO3 28.6 H ABG O2 Saturation 97.7 ABG Base Excess 0.8 FiO2 100% Sodium Cancelled Potassium Cancelled Chloride Cancelled Carbon Dioxide Cancelled Anion Gap Cancelled BUN Cancelled Creatinine Cancelled Est GFR ( Amer) Cancelled Est GFR (Non-Af Amer) Cancelled Glucose Cancelled Lactic Acid Calcium Cancelled Phosphorus Cancelled Magnesium Cancelled Total Bilirubin Cancelled AST Cancelled ALT Cancelled Alkaline Phosphatase Cancelled Total Protein Cancelled Albumin Cancelled 01/03/17 01/03/17 01/03/17 00:53 00:53 01:38 WBC RBC Hgb Hct MCV MCH MCHC RDW Plt Count Carbonic Acid 1.32 HCO3/H2CO3 Ratio 19:1 ABG pH 7.38 ABG pCO2 43.9 ABG pO2 358.6 H ABG HCO3 25.5 ABG O2 Saturation 99.8 H ABG Base Excess 0.2 FiO2 100% Sodium Cancelled Potassium Cancelled Chloride Cancelled Carbon Dioxide Cancelled Anion Gap Cancelled BUN Cancelled Creatinine Cancelled Est GFR ( Amer) Cancelled Est GFR (Non-Af Amer) Cancelled Glucose Cancelled Lactic Acid Cancelled Calcium Cancelled Phosphorus Cancelled Magnesium Cancelled Total Bilirubin Cancelled AST Cancelled ALT Cancelled Alkaline Phosphatase Cancelled Total Protein Cancelled Albumin Cancelled 01/03/17 01/03/17 01/03/17 01:38 03:13 03:13 WBC RBC Hgb Hct MCV MCH MCHC RDW Plt Count Carbonic Acid HCO3/H2CO3 Ratio ABG pH ABG pCO2 ABG pO2 ABG HCO3 ABG O2 Saturation ABG Base Excess FiO2 Sodium 139.7 Potassium 3.9 Chloride 106 Carbon Dioxide 24 Anion Gap 10 BUN 15 Creatinine 4.65 H Est GFR ( Amer) 11 L Est GFR (Non-Af Amer) 9 L Glucose 44 L Lactic Acid Cancelled 2.0 Calcium 8.9 Phosphorus 3.3 Magnesium 1.7 Total Bilirubin 0.8 AST 26 ALT 26 Alkaline Phosphatase 65 Total Protein 5.8 L Albumin 2.2 L 01/01/17 01/01/17 01/02/17 23:20 23:20 06:07 Creatine Kinase 23 L 22 L CK-MB (CK-2) 0.36 Troponin I < 0.012 01/02/17 06:07 Creatine Kinase CK-MB (CK-2) 0.47 Troponin I < 0.012 Impressions: Cervical Spine CT 01/01/17 08:43 IMPRESSION: Considerable motion artifact. No fracture identified. If clinical suspicion of fracture persists, repeat imaging when the patient is more stable is recommended. Head CT 01/01/17 08:43 IMPRESSION: No visualized intracranial hemorrhage or fracture. Frontal soft tissue swelling. Significant patient motion limits evaluation of the lower cerebrum, skullbase and posterior fossa. Repeat exam recommended if there is high clinical suspicion. Hip X-Ray 01/01/17 08:43 IMPRESSION: No acute finding. Chest X-Ray 01/03/17 00:00 IMPRESSION: Cardiomegaly. Vascular congestion. Small left pleural effusion. Bilateral perihilar airspace opacities, suggestive of pulmonary edema, superimposed pneumonia is not excludable. Endotracheal tube in expected location. Assessment & Plan - Diagnosis (1) End-stage renal disease on hemodialysis Is this a current diagnosis for this admission?: YesPlan: We will do dialysis today for 3 hours, using the patient's AV fistula, with 3 potassium bath, blood flow rate of 300 mL per minute, dialysate flow rate of 600 mL per minute, ultrafiltration up to 500 mL only, no heparin and no Procrit during dialysis. Patient will be monitored very closely during dialysis by our dialysis nurse. We will adjust therapy depending on patient's response. If she tolerates dialysis today, next dialysis will be on Friday. (2) Sepsis Is this a current diagnosis for this admission?: YesPlan: Likely due to UTI. (3) UTI (urinary tract infection) Qualifiers: Urinary tract infection type: site unspecified Hematuria presence: with hematuria Qualified Code(s): N39.0 - Urinary tract infection, site not specified Is this a current diagnosis for this admission?: YesPlan: Due to gram-negative organisms. Currently being given IV ceftriaxone. (4) Fall Qualifiers: Encounter type: initial encounter Qualified Code(s): W19.XXXA - Unspecified fall, initial encounter Is this a current diagnosis for this admission?: Yes (5) Contusion of face Is this a current diagnosis for this admission?: Yes (6) Metabolic encephalopathy Is this a current diagnosis for this admission?: YesPlan: Due to UTI with underlying progressive dementia. (7) Hypoglycemia Is this a current diagnosis for this admission?: YesPlan: Needs to hold Januvia will the patient is intubated. - Time Time with patient: 15-25 minutes
[2017-01-03 16:07] LABS: ARTERIAL BLOOD BASE EXCESS 8.5 mmol/L
[2017-01-03] MEDS: LACTOBACILLUS ACIDOPHILUS 250 MG TAB PO SCH (16:30)
[2017-01-03] MEDS: CITALOPRAM HYDROBROMIDE 20 MG TABLET PO SCH (16:30)
[2017-01-03] MEDS: ASPIRIN 81 MG TABLET, CHEWABLE PO SCH (16:31)
[2017-01-03] MEDS: DOCUSATE SODIUM 100 MG CAPSULE PO SCH (18:47)
[2017-01-03] MEDS: CETIRIZINE HCL ORAL SOLN 5 MG/5 ML UDCUP PO SCH (18:47)
[2017-01-03] MEDS: FOLIC ACID/VITAMIN B COMP W-C CAPSULE PO SCH (18:47)
--- NOTE | 2017-01-03 20:13 | PDOC PROGRESS REPORT ---
Subjective Progress Note for:: 01/03/17 Subjective:: Patient condition deteriorated last night, she apparently developed severe hypoglycemia in the setting of sepsis with hypothermia on she had was seems to be respiratory arrest, she was intubated and transferred to intensive care unit. Prognosis is guarded to poor patient is also requiring norepinephrine because of low blood pressure. Physical Exam Vital Signs: Temp Pulse Resp BP Pulse Ox 98.2 F 62 16 114/44 L 99 01/03/17 19:28 01/03/17 17:56 01/03/17 18:15 01/03/17 18:10 01/03/17 18:15 Intake & Output 01/02/17 01/03/17 01/04/17 06:59 06:59 06:59 Intake Total 78 75 589 Output Total 60 52 Balance 78 15 537 Weight 71.4 kg 72.7 kg Respiratory exam: PRESENT: other - Auscultation of the chest revealed equal air entry on both lung talbert Cardiovascular exam: PRESENT: +S1, +S2 GI/Abdominal exam: PRESENT: soft Results Laboratory Results: 01/03/17 00:53 01/03/17 03:13 01/02/17 01/03/17 01/03/17 23:45 00:53 00:53 WBC 7.8 RBC 4.23 Hgb 11.9 L Hct 36.4 MCV 86 MCH 28.2 MCHC 32.8 RDW 17.5 H Plt Count 182 Carbonic Acid 1.81 H HCO3/H2CO3 Ratio 15:1 ABG pH 7.30 L ABG pCO2 60.0 H ABG pO2 116.1 H ABG HCO3 28.6 H ABG O2 Saturation 97.7 ABG Base Excess 0.8 FiO2 100% Sodium Cancelled Potassium Cancelled Chloride Cancelled Carbon Dioxide Cancelled Anion Gap Cancelled BUN Cancelled Creatinine Cancelled Est GFR ( Amer) Cancelled Est GFR (Non-Af Amer) Cancelled Glucose Cancelled Lactic Acid Calcium Cancelled Phosphorus Cancelled Magnesium Cancelled Total Bilirubin Cancelled AST Cancelled ALT Cancelled Alkaline Phosphatase Cancelled Total Protein Cancelled Albumin Cancelled 01/03/17 01/03/17 01/03/17 00:53 00:53 01:38 WBC RBC Hgb Hct MCV MCH MCHC RDW Plt Count Carbonic Acid 1.32 HCO3/H2CO3 Ratio 19:1 ABG pH 7.38 ABG pCO2 43.9 ABG pO2 358.6 H ABG HCO3 25.5 ABG O2 Saturation 99.8 H ABG Base Excess 0.2 FiO2 100% Sodium Cancelled Potassium Cancelled Chloride Cancelled Carbon Dioxide Cancelled Anion Gap Cancelled BUN Cancelled Creatinine Cancelled Est GFR ( Amer) Cancelled Est GFR (Non-Af Amer) Cancelled Glucose Cancelled Lactic Acid Cancelled Calcium Cancelled Phosphorus Cancelled Magnesium Cancelled Total Bilirubin Cancelled AST Cancelled ALT Cancelled Alkaline Phosphatase Cancelled Total Protein Cancelled Albumin Cancelled 01/03/17 01/03/17 01/03/17 01:38 03:13 03:13 WBC RBC Hgb Hct MCV MCH MCHC RDW Plt Count Carbonic Acid HCO3/H2CO3 Ratio ABG pH ABG pCO2 ABG pO2 ABG HCO3 ABG O2 Saturation ABG Base Excess FiO2 Sodium 139.7 Potassium 3.9 Chloride 106 Carbon Dioxide 24 Anion Gap 10 BUN 15 Creatinine 4.65 H Est GFR ( Amer) 11 L Est GFR (Non-Af Amer) 9 L Glucose 44 L Lactic Acid Cancelled 2.0 Calcium 8.9 Phosphorus 3.3 Magnesium 1.7 Total Bilirubin 0.8 AST 26 ALT 26 Alkaline Phosphatase 65 Total Protein 5.8 L Albumin 2.2 L 01/03/17 15:50 WBC RBC Hgb Hct MCV MCH MCHC RDW Plt Count Carbonic Acid 1.02 L HCO3/H2CO3 Ratio 30:1 ABG pH 7.57 H ABG pCO2 34.0 L ABG pO2 69.2 L ABG HCO3 30.7 H ABG O2 Saturation 96.0 ABG Base Excess 8.5 FiO2 35% Sodium Potassium Chloride Carbon Dioxide Anion Gap BUN Creatinine Est GFR ( Amer) Est GFR (Non-Af Amer) Glucose Lactic Acid Calcium Phosphorus Magnesium Total Bilirubin AST ALT Alkaline Phosphatase Total Protein Albumin 01/01/17 01/01/17 01/02/17 23:20 23:20 06:07 Creatine Kinase 23 L 22 L CK-MB (CK-2) 0.36 Troponin I < 0.012 01/02/17 06:07 Creatine Kinase CK-MB (CK-2) 0.47 Troponin I < 0.012 Impressions: Cervical Spine CT 01/01/17 08:43 IMPRESSION: Considerable motion artifact. No fracture identified. If clinical suspicion of fracture persists, repeat imaging when the patient is more stable is recommended. Head CT 01/01/17 08:43 IMPRESSION: No visualized intracranial hemorrhage or fracture. Frontal soft tissue swelling. Significant patient motion limits evaluation of the lower cerebrum, skullbase and posterior fossa. Repeat exam recommended if there is high clinical suspicion. Hip X-Ray 01/01/17 08:43 IMPRESSION: No acute finding. Chest X-Ray 01/03/17 00:00 IMPRESSION: Cardiomegaly. Vascular congestion. Small left pleural effusion. Bilateral perihilar airspace opacities, suggestive of pulmonary edema, superimposed pneumonia is not excludable. Endotracheal tube in expected location. Assessment & Plan - Diagnosis (1) Urinary tract infection Qualifiers: Urinary tract infection type: site unspecified Hematuria presence: without hematuria Qualified Code(s): N39.0 - Urinary tract infection, site not specified Is this a current diagnosis for this admission?: Yes (2) Metabolic encephalopathy Is this a current diagnosis for this admission?: Yes (3) Severe persistent allergic asthma with acute exacerbation Is this a current diagnosis for this admission?: Yes (4) End-stage renal disease on hemodialysis Is this a current diagnosis for this admission?: Yes (5) Hypoglycemia Is this a current diagnosis for this admission?: YesPlan: Patient started on tube feed (6) Contusion of face Qualifiers: Encounter type: initial encounter Qualified Code(s): S00.83XA - Contusion of other part of head, initial encounter Is this a current diagnosis for this admission?: Yes (7) Septic shock Is this a current diagnosis for this admission?: YesPlan: Patient with septic shock source of sepsis the urine presently on Levophed to support blood pressure, on mechanical ventilation prognosis is guarded to poor
[2017-01-04] MEDS: PROPOFOL 100 ML IV PRN ×6 (00:55→22:23)
[2017-01-04] MEDS: HEPARIN SOD (PORCINE) 5,000 UNIT/ML 1 ML SYRINGE SUBCUT SCH ×3 (06:03→22:23)
[2017-01-04 06:08] LABS: ARTERIAL BLOOD BASE EXCESS 4.8 mmol/L; ARTERIAL BLOOD O2 SATURATION 93.5 % (94-98)
[2017-01-04 06:21] LABS: ABSOLUTE EOSINOPHILS # (AUTO) 0.2 10^3/uL (0.0-0.6); ABSOLUTE LYMPHOCYTES (AUTO) 0.7 10^3/uL (0.5-4.7); ABSOLUTE MONOCYTES (AUTO) 0.6 10^3/uL (0.1-1.4); ABSOLUTE NEUT (AUTO) 12.8 10^3/uL (1.7-8.2); BASOPHILS % (AUTO) 0.3 % (0-2); EOSINOPHILS % (AUTO) 1.3 % (0-6); HEMATOCRIT 33.2 % (36.0-47.0); HGB HCT DIFFERENCE -0.2; LYMPHOCYTES % (AUTO) 5.2 % (13-45); MEAN CORPUSCULAR HEMOGLOBIN 28.3 pg (27.0-33.4); MEAN CORPUSCULAR HGB CONC 33.1 g/dL (32.0-36.0); MEAN CORPUSCULAR VOLUME 86 fl (80-97); MONOCYTES % (AUTO) 4.4 % (3-13); RED BLOOD COUNT 3.87 10^6/uL (3.72-5.28); RED CELL DISTRIBUTION WIDTH 17.2 % (11.5-14.0); SEGMENTED NEUTROPHILS % (AUTO) 88.8 % (42-78); WHITE BLOOD COUNT 14.4 10^3/uL (4.0-10.5)
[2017-01-04 06:27] LABS: ALANINE AMINOTRANSFERASE 22 U/L (9-52); ALBUMIN 2.1 g/dL (3.5-5.0); ALKALINE PHOSPHATASE 73 U/L (38-126); ANION GAP 5 (5-19); ASPARTATE AMINO TRANSFERASE 19 U/L (14-36); BILIRUBIN,DIRECT 0.2 mg/dL (0.0-0.4); BILIRUBIN,TOTAL 0.6 mg/dL (0.2-1.3); BLOOD UREA NITROGEN 11 mg/dL (7-20); CALCIUM 8.6 mg/dL (8.4-10.2); CARBON DIOXIDE 31 mmol/L (22-30); CHLORIDE 101 mmol/L (98-107); CREATININE RESULT 3.11 mg/dL (0.52-1.25); GLUCOSE 67 mg/dL (75-110); MAGNESIUM 1.5 mg/dL (1.6-2.3); POTASSIUM 3.5 mmol/L (3.6-5.0); TOTAL PROTEIN 5.6 g/dL (6.3-8.2); TRIGLYCERIDES 124 mg/dL (<150)
[2017-01-04] MEDS: CALCIUM ACETATE 667 MG CAPSULE PO SCH ×3 (07:41→17:18)
[2017-01-04] MEDS ORDERED: POTASSIUM CHLORIDE 20 MEQ/15 ML UDCUP PO ONE (09:01)
--- NOTE | 2017-01-04 09:01 | PDOC PROGRESS REPORT ---
Subjective Progress Note for:: 01/04/17 Subjective:: This is a 86-year-old female with end-stage renal disease on the dialysis and the respiratory failure and currently intubated doing fair and no other events heparins overnights in ICU. Discussed with the nursing staff no other concern Physical Exam Vital Signs: Temp Pulse Resp BP Pulse Ox 98.4 F 78 13 130/48 H 98 01/04/17 08:00 01/04/17 08:00 01/04/17 08:00 01/04/17 08:00 01/04/17 08:00 Intake & Output 01/03/17 01/04/17 01/05/17 06:59 06:59 06:59 Intake Total 75 1271 60 Output Total 60 612 10 Balance 15 659 50 Weight 72.7 kg 71.6 kg Physical Exam: Currently intubated General appearance: PRESENT: no acute distress Eye exam: PRESENT: PERRLA Mouth exam: PRESENT: neck supple Respiratory exam: PRESENT: clear to auscultation kennedi Cardiovascular exam: PRESENT: +S1, +S2 GI/Abdominal exam: PRESENT: normal bowel sounds, soft Extremities exam: ABSENT: pedal edema Additional comments: Currently intubated and under sedation Results Laboratory Results: 01/04/17 05:45 01/04/17 05:45 01/03/17 01/04/17 01/04/17 15:50 05:45 05:45 WBC 14.4 H RBC 3.87 Hgb 11.0 L Hct 33.2 L MCV 86 MCH 28.3 MCHC 33.1 RDW 17.2 H Plt Count 147 L Seg Neutrophils % 88.8 H Lymphocytes % 5.2 L Monocytes % 4.4 Eosinophils % 1.3 Basophils % 0.3 Absolute Neutrophils 12.8 H Absolute Lymphocytes 0.7 Absolute Monocytes 0.6 Absolute Eosinophils 0.2 Absolute Basophils 0.0 Carbonic Acid 1.02 L HCO3/H2CO3 Ratio 30:1 ABG pH 7.57 H ABG pCO2 34.0 L ABG pO2 69.2 L ABG HCO3 30.7 H ABG O2 Saturation 96.0 ABG Base Excess 8.5 FiO2 35% Sodium 137.0 Potassium 3.5 L Chloride 101 Carbon Dioxide 31 H Anion Gap 5 BUN 11 Creatinine 3.11 H Est GFR ( Amer) 17 L Est GFR (Non-Af Amer) 14 L Glucose 67 L Calcium 8.6 Magnesium 1.5 L Total Bilirubin 0.6 AST 19 ALT 22 Alkaline Phosphatase 73 Total Protein 5.6 L Albumin 2.1 L Triglycerides 124 01/04/17 05:45 WBC RBC Hgb Hct MCV MCH MCHC RDW Plt Count Seg Neutrophils % Lymphocytes % Monocytes % Eosinophils % Basophils % Absolute Neutrophils Absolute Lymphocytes Absolute Monocytes Absolute Eosinophils Absolute Basophils Carbonic Acid 1.16 HCO3/H2CO3 Ratio 24:1 ABG pH 7.49 H ABG pCO2 38.6 ABG pO2 62.3 L ABG HCO3 28.5 H ABG O2 Saturation 93.5 L ABG Base Excess 4.8 FiO2 30% Sodium Potassium Chloride Carbon Dioxide Anion Gap BUN Creatinine Est GFR ( Amer) Est GFR (Non-Af Amer) Glucose Calcium Magnesium Total Bilirubin AST ALT Alkaline Phosphatase Total Protein Albumin Triglycerides 01/01/17 01/01/17 01/02/17 23:20 23:20 06:07 Creatine Kinase 23 L 22 L CK-MB (CK-2) 0.36 Troponin I < 0.012 NT-Pro-B Natriuret Pep 01/02/17 01/04/17 06:07 05:45 Creatine Kinase CK-MB (CK-2) 0.47 Troponin I < 0.012 NT-Pro-B Natriuret Pep 20168 H Impressions: Cervical Spine CT 01/01/17 08:43 IMPRESSION: Considerable motion artifact. No fracture identified. If clinical suspicion of fracture persists, repeat imaging when the patient is more stable is recommended. Head CT 01/01/17 08:43 IMPRESSION: No visualized intracranial hemorrhage or fracture. Frontal soft tissue swelling. Significant patient motion limits evaluation of the lower cerebrum, skullbase and posterior fossa. Repeat exam recommended if there is high clinical suspicion. Hip X-Ray 01/01/17 08:43 IMPRESSION: No acute finding. Chest X-Ray 01/04/17 06:00 IMPRESSION: Significant improvement in the vascular congestion. Bilateral pleural effusions. ET tube at the [facility]. Assessment & Plan - Diagnosis (1) End-stage renal disease on hemodialysis Is this a current diagnosis for this admission?: YesPlan: Hemodialysis follow with the nephrology (2) Metabolic encephalopathy Is this a current diagnosis for this admission?: Yes (3) Sepsis Is this a current diagnosis for this admission?: YesPlan: Continues IV antibiotics possible underlying urinary tract infections wait for the culture and sensitivity (4) Severe persistent allergic asthma with acute exacerbation Is this a current diagnosis for this admission?: YesPlan: Intensive current medications (5) UTI (urinary tract infection) Qualifiers: Urinary tract infection type: site unspecified Hematuria presence: with hematuria Qualified Code(s): N39.0 - Urinary tract infection, site not specified Is this a current diagnosis for this admission?: YesPlan: Induced IV antibiotic wait for the culture and sensitivity (6) Anemia in chronic kidney disease Is this a current diagnosis for this admission?: Yes (7) Respiratory failure Qualifiers: Chronicity: acute Is this a current diagnosis for this admission?: YesPlan: Currently intubated follow with pulmonary - Time Time Spent with patient: 15-24 minutes Critical Time spent with patient: 15-24 minutes Medications reviewed and adjusted accordingly: Yes Anticipated discharge: Other - Inpatient Certification Medical Necessity: Need Close Monitoring Due to Risk of Patient Decompensation Post Hospital Care: D/C [employer] Documentation - Plan Summary Plan Summary: Reviewed the all the medications review the all labsd Replace the potassium Follow with the pulmonary
[2017-01-04] MEDS: FLUTICASONE NASAL SPRAY 50 MCG/SPRY 120 SPRAY/16 GM NAREB SCH ×2 (09:47→22:22)
[2017-01-04] MEDS: TIMOLOL MALEATE 0.5% OPH SOLN 5 ML OU SCH ×2 (09:47→22:23)
[2017-01-04] MEDS: LACTOBACILLUS ACIDOPHILUS 250 MG TAB PO SCH ×2 (09:48→17:18)
[2017-01-04] MEDS: LANSOPRAZOLE 15 MG TAB.RAP.DR PO SCH (09:48)
[2017-01-04] MEDS: SITAGLIPTIN PHOSPHATE 25 MG TABLET PO SCH (09:48)
[2017-01-04] MEDS: CEFTRIAXONE 1 GM/D5W RTU 1 GM/50 ML RTUPB IV SCH (09:48)
[2017-01-04] MEDS: FUROSEMIDE 40 MG TABLET PO SCH ×2 (09:48→17:18)
[2017-01-04] MEDS: EPOETIN ALFA INJ 20000 UNIT/1 ML VIAL (RENAL) IV SCH (09:49)
[2017-01-04] MEDS: BUDESONIDE/FORMOTEROL 160-4.5 MCG 60 PUFF/6 GM MDI IH SCH (09:49)
[2017-01-04] MEDS: CARVEDILOL 12.5 MG TABLET PO SCH ×2 (09:49→22:23)
--- NOTE | 2017-01-04 15:53 | PDOC CONSULTATION ---
Consultation Consult Date: 01/03/17 Attending physician:: ALONDRA PHILLIPS Consult reason:: resp fail History of Present Illness Admission Date/PCP: 01/01/17 17:34 ALONDRA PHILLIPS MD History of Present Illness: All information from chart;CAROLINE WALDROP was called on this patient for cardiopulmonary arrest. Upon arrival was reported that the patient had been having decreased responsiveness and had agonal respirations and had a period of PEA. Upon my examination the patient had a palpable femoral pulse with a narrow complex tachycardia. She had agonal respirations and was being assisted with bag valve mask. Accu-Chek showed a blood glucose of 11 but the patient did not respond to 2 A of D50 through a left external jugular IV. As she was having difficulty maintaining her airway and attempted intubation but she did have some gag reflex. She was suctioned and as she did not improve rocuronium 50 mg was used with Ativan 2 mg IV with intubation with a 7.5 endotracheal tube with direct visualization of the cords. Breath sounds were equal bilaterally though slightly increased on the right compared to the left C2 was repositioned and fixed in place with x-ray pending. Primary care physician has been contacted and will be transporting the patient to the ICU with the hospitalist covering further. She is maintaining a stable blood pressure and pulse oxygenation at this point with x-ray pending. Past Medical History Cardiac Medical History: Reports: Congestive Heart Failure - Chronic diastolic dysfunction, pulmonary hypertension, Coronary Artery Disease, Hyperlipidema, Hypertension - on meds Denies: Atrial Fibrillation, Myocardial Infarction, Pulmonary Embolism Pulmonary Medical History: Reports: Asthma - inhalers, Bronchitis - hx of, Chronic Obstructive Pulmonary Disease (COPD), Pneumonia - hx of, Sleep Apnea Denies: Respiratory Failure, Tuberculosis Neurological Medical History: Denies: Seizures Endocrine Medical History: Reports: Diabetes Mellitus Type 2 Denies: Diabetes Mellitus Type 1 Renal/ Medical History: Reports: End Stage Renal Disease - End-stage renal disease on maintenance hemodialysis Malignancy Medical History: Denies: Lung Cancer GI Medical History: Denies: Gastroesophageal Reflux Disease, Hiatal Hernia Musculoskeltal Medical History: Reports: 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 Denies: Fibromyalgia Psychiatric Medical History: Reports: Dementia Denies: Depression Hematology: Reports: Anemia - hx of Infectious Medical History: Reports: Methicillin-Resistant Staph Aureus Past Surgical History Past Surgical History: Reports: Cardiac Catheterization - cardiac stent 2010, Coronary Stent, Orthopedic Surgery - Back surgery, Vascular Surgery - Fistula to the right arm for dialysis Denies: Amputation, Hysterectomy, Pacemaker Social History Information Source: [facility] Records Lives with: Family Smoking Status: Never Smoker Frequency of Alcohol Use: None Hx Recreational Drug Use: No Drugs: None Hx Prescription Drug Abuse: No Family History Family History: Reviewed & Not Pertinent, Other - Unable to obtain due to dementia Parental Family History Reviewed: No Children Family History Reviewed: No Sibling(s) Family History Reviewed.: No Medication/Allergy Home Medications: Acetaminophen [Tylenol Arthritis 650 mg Tablet] 650 mg PO Q6HP PRN 11/18/16 Albuterol Sulfate [Ventolin Hfa] 2 puff IH Q4HP PRN 11/18/16 Aspirin [Aspirin 81 mg Chewable Tablet] 81 mg PO DAILY 11/18/16 Brimonidine Tartrate [Alphagan P] 1 drop OU Q12 11/18/16 Budesonide/Formoterol Fumarate [Symbicort HFA 160-4.5 mcg Inhaler 6 gm] 2 puff IH Q12 11/18/16 Calcium Acetate [Phoslo 667 mg Capsule] 667 mg PO MEALS 11/18/16 Carvedilol [Coreg 12.5 mg Tablet] 37.5 mg PO Q12 11/18/16 Cetirizine HCl [Zyrtec Oral Soln 5 mg/5 ml Udcup] 10 mg PO DAILY 11/18/16 Citalopram Hydrobromide [Celexa 20 mg Tablet] 20 mg PO DAILY 11/18/16 Docusate Sodium [Colace 100 mg Capsule] 100 mg PO DAILY 11/18/16 Epoetin Johnathan [Procrit Inj 20,000 Unit/1 ml Vial (Renal)] 20,000 unit IV TUTHSA@ 1000 11/18/16 Fluticasone Propionate [Flonase Nasal Gause 50 Mcg/Gause 16 gm] 1 spray NAREB Q12 11/18/16 Folic Acid/Vitamin B Comp W-C [Nephrocaps Multiple Vitamin Capsule] 1 cap PO DAILY 11/18/16 Furosemide [Lasix 40 mg Tablet] 40 mg PO BID 11/18/16 Guaifenesin/Dextromethorphan [Guaifenesin Dm Syrup] 10 ml PO Q4HP PRN 11/18/16 Insulin Aspart [Novolog Flexpen] 5 unit SUBCUT AC 11/18/16 Insulin Detemir [Levemir Flextouch] 10 unit SQ QHS 11/18/16 Insulin Detemir [Levemir Flextouch] 30 unit SQ QAM 11/18/16 Linagliptin [Tradjenta] 5 mg PO DAILY 11/18/16 Mirtazapine 7.5 mg PO QHS 11/18/16 Omeprazole 20 mg PO DAILY 11/18/16 Timolol Maleate 1 drop OU Q12 11/18/16 Allergies/Adverse Reactions: ciprofloxacin [Ciprofloxacin] Allergy (Severe, Verified 08/23/16 20:22) rash sulfamethoxazole [Sulfamethoxazole] Allergy (Unknown, Verified 08/23/16 20:22) rash Review of Systems ROS unobtainable: Due to endotracheal tube Physical Exam Vital Signs: Temp Pulse Resp BP Pulse Ox 102.0 F H 73 12 115/47 L 100 01/03/17 08:00 01/03/17 08:00 01/03/17 08:00 01/03/17 08:00 01/03/17 08:00 Intake & Output 01/02/17 01/03/17 01/04/17 06:59 06:59 06:59 Intake Total 78 75 Output Total 60 0 Balance 78 15 0 Weight 71.4 kg 72.7 kg General appearance: PRESENT: no acute distress, disheveled, obese, well- developed Head exam: PRESENT: atraumatic, normocephalic Eye exam: PRESENT: conjunctiva pale Mouth exam: PRESENT: neck supple, other - Et tube in place Neck exam: PRESENT: carotid bruit Respiratory exam: PRESENT: decreased breath sounds, prolonged expiratory phas, rhonchi, symmetrical, unlabored Cardiovascular exam: PRESENT: irregular rhythm Pulses: PRESENT: normal radial pulses GI/Abdominal exam: PRESENT: normal bowel sounds, soft. ABSENT: distended, guarding, mass, organolmegaly, rebound, tenderness Rectal exam: PRESENT: deferred Skin exam: PRESENT: dry, warm Results Laboratory Results: 01/03/17 00:53 01/03/17 03:13 01/02/17 01/03/17 01/03/17 23:45 00:53 00:53 WBC 7.8 RBC 4.23 Hgb 11.9 L Hct 36.4 MCV 86 MCH 28.2 MCHC 32.8 RDW 17.5 H Plt Count 182 Carbonic Acid 1.81 H HCO3/H2CO3 Ratio 15:1 ABG pH 7.30 L ABG pCO2 60.0 H ABG pO2 116.1 H ABG HCO3 28.6 H ABG O2 Saturation 97.7 ABG Base Excess 0.8 FiO2 100% Sodium Cancelled Potassium Cancelled Chloride Cancelled Carbon Dioxide Cancelled Anion Gap Cancelled BUN Cancelled Creatinine Cancelled Est GFR ( Amer) Cancelled Est GFR (Non-Af Amer) Cancelled Glucose Cancelled Lactic Acid Calcium Cancelled Phosphorus Cancelled Magnesium Cancelled Total Bilirubin Cancelled AST Cancelled ALT Cancelled Alkaline Phosphatase Cancelled Total Protein Cancelled Albumin Cancelled 01/03/17 01/03/17 01/03/17 00:53 00:53 01:38 WBC RBC Hgb Hct MCV MCH MCHC RDW Plt Count Carbonic Acid 1.32 HCO3/H2CO3 Ratio 19:1 ABG pH 7.38 ABG pCO2 43.9 ABG pO2 358.6 H ABG HCO3 25.5 ABG O2 Saturation 99.8 H ABG Base Excess 0.2 FiO2 100% Sodium Cancelled Potassium Cancelled Chloride Cancelled Carbon Dioxide Cancelled Anion Gap Cancelled BUN Cancelled Creatinine Cancelled Est GFR ( Amer) Cancelled Est GFR (Non-Af Amer) Cancelled Glucose Cancelled Lactic Acid Cancelled Calcium Cancelled Phosphorus Cancelled Magnesium Cancelled Total Bilirubin Cancelled AST Cancelled ALT Cancelled Alkaline Phosphatase Cancelled Total Protein Cancelled Albumin Cancelled 01/03/17 01/03/17 01/03/17 01:38 03:13 03:13 WBC RBC Hgb Hct MCV MCH MCHC RDW Plt Count Carbonic Acid HCO3/H2CO3 Ratio ABG pH ABG pCO2 ABG pO2 ABG HCO3 ABG O2 Saturation ABG Base Excess FiO2 Sodium 139.7 Potassium 3.9 Chloride 106 Carbon Dioxide 24 Anion Gap 10 BUN 15 Creatinine 4.65 H Est GFR ( Amer) 11 L Est GFR (Non-Af Amer) 9 L Glucose 44 L Lactic Acid Cancelled 2.0 Calcium 8.9 Phosphorus 3.3 Magnesium 1.7 Total Bilirubin 0.8 AST 26 ALT 26 Alkaline Phosphatase 65 Total Protein 5.8 L Albumin 2.2 L 01/01/17 01/01/17 01/02/17 23:20 23:20 06:07 Creatine Kinase 23 L 22 L CK-MB (CK-2) 0.36 Troponin I < 0.012 01/02/17 06:07 Creatine Kinase CK-MB (CK-2) 0.47 Troponin I < 0.012 Impressions: Cervical Spine CT 01/01/17 08:43 IMPRESSION: Considerable motion artifact. No fracture identified. If clinical suspicion of fracture persists, repeat imaging when the patient is more stable is recommended. Head CT 01/01/17 08:43 IMPRESSION: No visualized intracranial hemorrhage or fracture. Frontal soft tissue swelling. Significant patient motion limits evaluation of the lower cerebrum, skullbase and posterior fossa. Repeat exam recommended if there is high clinical suspicion. Hip X-Ray 01/01/17 08:43 IMPRESSION: No acute finding. Chest X-Ray 01/03/17 00:00 IMPRESSION: Cardiomegaly. Vascular congestion. Small left pleural effusion. Bilateral perihilar airspace opacities, suggestive of pulmonary edema, superimposed pneumonia is not excludable. Endotracheal tube in expected location. Assessment & Plan - Diagnosis (1) Dementia Is this a current diagnosis for this admission?: Yes (2) End-stage renal disease on hemodialysis Is this a current diagnosis for this admission?: YesPlan: on hemodialysis (3) Respiratory failure Qualifiers: Chronicity: acute Is this a current diagnosis for this admission?: YesPlan: rr;VE;fio2 airway presures ok (4) Severe persistent allergic asthma with acute exacerbation Is this a current diagnosis for this admission?: YesPlan: watch airway pressures and VE/ closely - Time Critical Time spent with patient: 35 or more minutes - 55 min
[2017-01-04] MEDS: DEXTROSE 5%-NORMAL SALINE 1,000 ML IV PRN (15:55)
--- NOTE | 2017-01-04 15:55 | PDOC PROGRESS REPORT ---
Subjective Progress Note for:: 01/04/17 Subjective:: sedated intubated Physical Exam Vital Signs: Temp Pulse Resp BP Pulse Ox 98.4 F 78 13 130/48 H 98 01/04/17 08:00 01/04/17 08:00 01/04/17 08:00 01/04/17 08:00 01/04/17 08:00 Intake & Output 01/03/17 01/04/17 01/05/17 06:59 06:59 06:59 Intake Total 75 1271 60 Output Total 60 612 10 Balance 15 659 50 Weight 72.7 kg 71.6 kg General appearance: PRESENT: no acute distress, disheveled Head exam: PRESENT: atraumatic, normocephalic Eye exam: PRESENT: conjunctiva pale Mouth exam: PRESENT: neck supple, other - ET tube Neck exam: ABSENT: carotid bruit, JVD, lymphadenopathy, thyromegaly Respiratory exam: PRESENT: decreased breath sounds, prolonged expiratory phas, rhonchi, symmetrical, unlabored Cardiovascular exam: PRESENT: irregular rhythm Pulses: PRESENT: normal radial pulses GI/Abdominal exam: PRESENT: normal bowel sounds, soft. ABSENT: distended, guarding, mass, organolmegaly, rebound, tenderness Rectal exam: PRESENT: deferred Gentrourinary exam: PRESENT: indwelling catheter Skin exam: PRESENT: dry, warm Results Laboratory Results: 01/04/17 05:45 01/04/17 05:45 01/03/17 01/04/17 01/04/17 15:50 05:45 05:45 WBC 14.4 H RBC 3.87 Hgb 11.0 L Hct 33.2 L MCV 86 MCH 28.3 MCHC 33.1 RDW 17.2 H Plt Count 147 L Seg Neutrophils % 88.8 H Lymphocytes % 5.2 L Monocytes % 4.4 Eosinophils % 1.3 Basophils % 0.3 Absolute Neutrophils 12.8 H Absolute Lymphocytes 0.7 Absolute Monocytes 0.6 Absolute Eosinophils 0.2 Absolute Basophils 0.0 Carbonic Acid 1.02 L HCO3/H2CO3 Ratio 30:1 ABG pH 7.57 H ABG pCO2 34.0 L ABG pO2 69.2 L ABG HCO3 30.7 H ABG O2 Saturation 96.0 ABG Base Excess 8.5 FiO2 35% Sodium 137.0 Potassium 3.5 L Chloride 101 Carbon Dioxide 31 H Anion Gap 5 BUN 11 Creatinine 3.11 H Est GFR ( Amer) 17 L Est GFR (Non-Af Amer) 14 L Glucose 67 L Calcium 8.6 Magnesium 1.5 L Total Bilirubin 0.6 AST 19 ALT 22 Alkaline Phosphatase 73 Total Protein 5.6 L Albumin 2.1 L Triglycerides 124 01/04/17 05:45 WBC RBC Hgb Hct MCV MCH MCHC RDW Plt Count Seg Neutrophils % Lymphocytes % Monocytes % Eosinophils % Basophils % Absolute Neutrophils Absolute Lymphocytes Absolute Monocytes Absolute Eosinophils Absolute Basophils Carbonic Acid 1.16 HCO3/H2CO3 Ratio 24:1 ABG pH 7.49 H ABG pCO2 38.6 ABG pO2 62.3 L ABG HCO3 28.5 H ABG O2 Saturation 93.5 L ABG Base Excess 4.8 FiO2 30% Sodium Potassium Chloride Carbon Dioxide Anion Gap BUN Creatinine Est GFR ( Amer) Est GFR (Non-Af Amer) Glucose Calcium Magnesium Total Bilirubin AST ALT Alkaline Phosphatase Total Protein Albumin Triglycerides 01/01/17 01/01/17 01/02/17 23:20 23:20 06:07 Creatine Kinase 23 L 22 L CK-MB (CK-2) 0.36 Troponin I < 0.012 NT-Pro-B Natriuret Pep 01/02/17 01/04/17 06:07 05:45 Creatine Kinase CK-MB (CK-2) 0.47 Troponin I < 0.012 NT-Pro-B Natriuret Pep 80225 H Impressions: Cervical Spine CT 01/01/17 08:43 IMPRESSION: Considerable motion artifact. No fracture identified. If clinical suspicion of fracture persists, repeat imaging when the patient is more stable is recommended. Head CT 01/01/17 08:43 IMPRESSION: No visualized intracranial hemorrhage or fracture. Frontal soft tissue swelling. Significant patient motion limits evaluation of the lower cerebrum, skullbase and posterior fossa. Repeat exam recommended if there is high clinical suspicion. Hip X-Ray 01/01/17 08:43 IMPRESSION: No acute finding. Chest X-Ray 01/04/17 06:00 IMPRESSION: Significant improvement in the vascular congestion. Bilateral pleural effusions. ET tube at the [place]. Assessment & Plan - Diagnosis (1) Dementia Is this a current diagnosis for this admission?: Yes (2) End-stage renal disease on hemodialysis Is this a current diagnosis for this admission?: YesPlan: on hemodialysis (3) Respiratory failure Qualifiers: Chronicity: acute Is this a current diagnosis for this admission?: YesPlan: improving (4) Septic shock Is this a current diagnosis for this admission?: Yes - Time Critical Time spent with patient: 35 or more minutes
[2017-01-04] MEDS: CETIRIZINE HCL ORAL SOLN 5 MG/5 ML UDCUP PO SCH (17:17)
[2017-01-04] MEDS: FOLIC ACID/VITAMIN B COMP W-C CAPSULE PO SCH (17:18)
[2017-01-04] MEDS: ASPIRIN 81 MG TABLET, CHEWABLE PO SCH (17:18)
[2017-01-04] MEDS: CITALOPRAM HYDROBROMIDE 20 MG TABLET PO SCH (17:18)
[2017-01-04] MEDS: DOCUSATE SODIUM 100 MG CAPSULE PO SCH (17:19)
[2017-01-04] MEDS: DEXTROSE 5%-WATER 250 ML with NOREPINEPHRINE BITARTRATE 4 MG IV PRN ×2 (17:20)
[2017-01-04] MEDS: MIRTAZAPINE 15 MG TABLET PO SCH (22:23)
[2017-01-05] MEDS: BUDESONIDE/FORMOTEROL 160-4.5 MCG 60 PUFF/6 GM MDI IH SCH ×3 (00:25→22:27)
[2017-01-05 04:52] LABS: HEMATOCRIT 33.6 % (36.0-47.0); HEMOGLOBIN 10.9 g/dL (12.0-15.5); HGB HCT DIFFERENCE -0.9; MEAN CORPUSCULAR HEMOGLOBIN 27.9 pg (27.0-33.4); MEAN CORPUSCULAR HGB CONC 32.5 g/dL (32.0-36.0); MEAN CORPUSCULAR VOLUME 86 fl (80-97); RED BLOOD COUNT 3.91 10^6/uL (3.72-5.28); RED CELL DISTRIBUTION WIDTH 16.6 % (11.5-14.0); WHITE BLOOD COUNT 14.7 10^3/uL (4.0-10.5)
[2017-01-05 05:07] LABS: ALANINE AMINOTRANSFERASE 22 U/L (9-52); ALBUMIN 2.2 g/dL (3.5-5.0); ALKALINE PHOSPHATASE 134 U/L (38-126); ANION GAP 9 (5-19); ASPARTATE AMINO TRANSFERASE 25 U/L (14-36); BILIRUBIN,DIRECT 0.4 mg/dL (0.0-0.4); BILIRUBIN,TOTAL 0.6 mg/dL (0.2-1.3); BLOOD UREA NITROGEN 17 mg/dL (7-20); CALCIUM 8.7 mg/dL (8.4-10.2); CARBON DIOXIDE 25 mmol/L (22-30); CHLORIDE 100 mmol/L (98-107); CREATININE RESULT 3.76 mg/dL (0.52-1.25); GLUCOSE 197 mg/dL (75-110); MAGNESIUM 1.6 mg/dL (1.6-2.3); POTASSIUM 3.6 mmol/L (3.6-5.0); SODIUM 134.3 mmol/L (137-145); TOTAL PROTEIN 5.6 g/dL (6.3-8.2)
[2017-01-05 05:19] LABS: BAND NEUTROPHILS % (MANUAL) 2 % (3-5); BASOPHILS % (MANUAL) 0 % (0-2); EOSINOPHILS % (MANUAL) 0 % (0-6); LYMPHOCYTES % (MANUAL) 8 % (13-45); TOTAL CELLS COUNTED 100
[2017-01-05 05:23] LABS: ANISOCYTOSIS 1+; BURR CELLS SLIGHT; OVALOCYTES SLIGHT; PLATELET CLUMPS PRESENT; POIKILOCYTOSIS SLIGHT; TOXIC GRANULATION SLIGHT; TOXIC VACUOLATION PRESENT
[2017-01-05 06:12] LABS: ARTERIAL BLOOD BASE EXCESS 3.7 mmol/L; ARTERIAL BLOOD O2 SATURATION 94.7 % (94-98)
[2017-01-05] MEDS: CALCIUM ACETATE 667 MG CAPSULE PO SCH ×3 (08:02→17:14)
[2017-01-05] MEDS: PROPOFOL 100 ML IV PRN ×3 (08:03→22:27)
--- NOTE | 2017-01-05 09:08 | PDOC PROGRESS REPORT ---
Subjective Progress Note for:: 01/05/17 Subjective:: This is a 86-year-old female with end-stage renal disease on the dialysis and the respiratory failure and currently intubated doing fair and no other events heparins overnights in ICU. Discussed with the nursing staff no other concern Physical Exam Vital Signs: Temp Pulse Resp BP Pulse Ox 97.5 F 72 16 144/51 H 98 01/05/17 08:00 01/05/17 08:00 01/05/17 08:00 01/05/17 08:00 01/05/17 08:00 Intake & Output 01/04/17 01/05/17 01/06/17 06:59 06:59 06:59 Intake Total 1271 2809 552 Output Total 612 316 Balance 659 2493 552 Weight 71.6 kg 73.4 kg General appearance: PRESENT: no acute distress Eye exam: PRESENT: PERRLA Mouth exam: PRESENT: neck supple Respiratory exam: PRESENT: clear to auscultation kennedi Cardiovascular exam: PRESENT: +S1, +S2 GI/Abdominal exam: PRESENT: normal bowel sounds, soft Extremities exam: ABSENT: pedal edema Results Laboratory Results: 01/05/17 04:38 01/05/17 04:38 01/05/17 01/05/17 01/05/17 04:38 04:38 06:05 WBC 14.7 H RBC 3.91 Hgb 10.9 L Hct 33.6 L MCV 86 MCH 27.9 MCHC 32.5 RDW 16.6 H Plt Count 134 L Seg Neutrophils % Not Reportable Lymphocytes % Not Reportable Monocytes % Not Reportable Eosinophils % Not Reportable Basophils % Not Reportable Absolute Neutrophils Not Reportable Absolute Lymphocytes Not Reportable Absolute Monocytes Not Reportable Absolute Eosinophils Not Reportable Absolute Basophils Not Reportable Carbonic Acid 1.25 HCO3/H2CO3 Ratio 22:1 ABG pH 7.45 ABG pCO2 41.6 ABG pO2 70.2 L ABG HCO3 28.1 H ABG O2 Saturation 94.7 ABG Base Excess 3.7 FiO2 24% Sodium 134.3 L Potassium 3.6 Chloride 100 Carbon Dioxide 25 Anion Gap 9 BUN 17 Creatinine 3.76 H Est GFR ( Amer) 14 L Est GFR (Non-Af Amer) 11 L Glucose 197 H Calcium 8.7 Magnesium 1.6 Total Bilirubin 0.6 AST 25 ALT 22 Alkaline Phosphatase 134 H Total Protein 5.6 L Albumin 2.2 L 01/01/17 01/01/17 01/02/17 23:20 23:20 06:07 Creatine Kinase 23 L 22 L CK-MB (CK-2) 0.36 Troponin I < 0.012 NT-Pro-B Natriuret Pep 01/02/17 01/04/17 06:07 05:45 Creatine Kinase CK-MB (CK-2) 0.47 Troponin I < 0.012 NT-Pro-B Natriuret Pep [id number] H Impressions: Cervical Spine CT 01/01/17 08:43 IMPRESSION: Considerable motion artifact. No fracture identified. If clinical suspicion of fracture persists, repeat imaging when the patient is more stable is recommended. Head CT 01/01/17 08:43 IMPRESSION: No visualized intracranial hemorrhage or fracture. Frontal soft tissue swelling. Significant patient motion limits evaluation of the lower cerebrum, skullbase and posterior fossa. Repeat exam recommended if there is high clinical suspicion. Hip X-Ray 01/01/17 08:43 IMPRESSION: No acute finding. Chest X-Ray 01/05/17 06:00 IMPRESSION: Persistent small pleural effusions and basilar airspace disease. Support lines and tubes remain in satisfactory position. Assessment & Plan - Diagnosis (1) End-stage renal disease on hemodialysis Is this a current diagnosis for this admission?: YesPlan: Hemodialysis follow with the nephrology (2) Metabolic encephalopathy Is this a current diagnosis for this admission?: YesPlan: Continuous current medication (3) Sepsis Is this a current diagnosis for this admission?: YesPlan: Continues IV antibiotics possible underlying urinary tract infections wait for the culture and sensitivity (4) Severe persistent allergic asthma with acute exacerbation Is this a current diagnosis for this admission?: YesPlan: Intensive current medications (5) UTI (urinary tract infection) Qualifiers: Urinary tract infection type: site unspecified Hematuria presence: with hematuria Qualified Code(s): N39.0 - Urinary tract infection, site not specified Is this a current diagnosis for this admission?: YesPlan: Induced IV antibiotic wait for the culture and sensitivity (6) Anemia in chronic kidney disease Is this a current diagnosis for this admission?: Yes (7) Respiratory failure Qualifiers: Chronicity: acute Is this a current diagnosis for this admission?: Yes - Time Time Spent with patient: 15-24 minutes Critical Time spent with patient: 15-24 minutes Medications reviewed and adjusted accordingly: Yes Anticipated discharge: Other Within: Other - Inpatient Certification Medical Necessity: Need Close Monitoring Due to Risk of Patient Decompensation, Need for IV Antibiotics Post Hospital Care: D/C Bracelet Former Documentation - Plan Summary Plan Summary: Continuous current medication patient's stool C. difficile is negative we'll add some probiotics
[2017-01-05] MEDS: HEPARIN SOD (PORCINE) 5,000 UNIT/ML 1 ML SYRINGE SUBCUT SCH (10:07)
[2017-01-05] MEDS: CEFTRIAXONE 1 GM/D5W RTU 1 GM/50 ML RTUPB IV SCH (10:11)
[2017-01-05] MEDS: TIMOLOL MALEATE 0.5% OPH SOLN 5 ML OU SCH ×2 (10:11→22:26)
[2017-01-05] MEDS: LACTOBACILLUS ACIDOPHILUS 250 MG TAB PO SCH ×2 (10:12→17:14)
[2017-01-05] MEDS: CARVEDILOL 12.5 MG TABLET PO SCH ×2 (10:12→22:26)
[2017-01-05] MEDS: SITAGLIPTIN PHOSPHATE 25 MG TABLET PO SCH (10:12)
[2017-01-05] MEDS: FUROSEMIDE 40 MG TABLET PO SCH ×2 (10:12→17:14)
[2017-01-05] MEDS: LANSOPRAZOLE 15 MG TAB.RAP.DR PO SCH (10:12)
[2017-01-05] MEDS: FLUTICASONE NASAL SPRAY 50 MCG/SPRY 120 SPRAY/16 GM NAREB SCH ×2 (10:14→22:27)
[2017-01-05] MEDS: CETIRIZINE HCL ORAL SOLN 5 MG/5 ML UDCUP PO SCH (17:14)
[2017-01-05] MEDS: CITALOPRAM HYDROBROMIDE 20 MG TABLET PO SCH (17:14)
[2017-01-05] MEDS: ASPIRIN 81 MG TABLET, CHEWABLE PO SCH (17:15)
[2017-01-05] MEDS: FOLIC ACID/VITAMIN B COMP W-C CAPSULE PO SCH (17:16)
[2017-01-05] MEDS: DOCUSATE SODIUM 100 MG CAPSULE PO SCH (17:16)
--- NOTE | 2017-01-05 17:34 | PDOC PROGRESS REPORT ---
Subjective Progress Note for:: 01/05/17 Subjective:: sedated intubated Physical Exam Vital Signs: Temp Pulse Resp BP Pulse Ox 97.0 F 73 10 L 122/42 L 97 01/05/17 16:00 01/05/17 16:00 01/05/17 16:00 01/05/17 16:00 01/05/17 17:03 Intake & Output 01/04/17 01/05/17 01/06/17 06:59 06:59 06:59 Intake Total 1271 2809 1387 Output Total 612 316 145 Balance 659 2383 1242 Weight 71.6 kg 73.4 kg General appearance: PRESENT: no acute distress, disheveled, obese Head exam: PRESENT: atraumatic, normocephalic Eye exam: PRESENT: conjunctiva pale Mouth exam: PRESENT: dry mucosa, neck supple, other - ET tube Neck exam: ABSENT: carotid bruit, JVD, lymphadenopathy, thyromegaly Respiratory exam: PRESENT: decreased breath sounds, prolonged expiratory phas, rhonchi, symmetrical, unlabored Cardiovascular exam: PRESENT: irregular rhythm Pulses: PRESENT: normal radial pulses GI/Abdominal exam: PRESENT: normal bowel sounds, soft. ABSENT: distended, guarding, mass, organolmegaly, rebound, tenderness Rectal exam: PRESENT: deferred Gentrourinary exam: PRESENT: indwelling catheter Skin exam: PRESENT: dry, warm Results Laboratory Results: 01/05/17 04:38 01/05/17 04:38 01/05/17 01/05/17 01/05/17 04:38 04:38 06:05 WBC 14.7 H RBC 3.91 Hgb 10.9 L Hct 33.6 L MCV 86 MCH 27.9 MCHC 32.5 RDW 16.6 H Plt Count 134 L Seg Neutrophils % Not Reportable Lymphocytes % Not Reportable Monocytes % Not Reportable Eosinophils % Not Reportable Basophils % Not Reportable Absolute Neutrophils Not Reportable Absolute Lymphocytes Not Reportable Absolute Monocytes Not Reportable Absolute Eosinophils Not Reportable Absolute Basophils Not Reportable Carbonic Acid 1.25 HCO3/H2CO3 Ratio 22:1 ABG pH 7.45 ABG pCO2 41.6 ABG pO2 70.2 L ABG HCO3 28.1 H ABG O2 Saturation 94.7 ABG Base Excess 3.7 FiO2 24% Sodium 134.3 L Potassium 3.6 Chloride 100 Carbon Dioxide 25 Anion Gap 9 BUN 17 Creatinine 3.76 H Est GFR ( Amer) 14 L Est GFR (Non-Af Amer) 11 L Glucose 197 H Calcium 8.7 Magnesium 1.6 Total Bilirubin 0.6 AST 25 ALT 22 Alkaline Phosphatase 134 H Total Protein 5.6 L Albumin 2.2 L 01/04/17 07:27 Nasophary (Mrsa Only) MRSA Surveillance Culture - Final NO MRSA RECOVERED 01/01/17 01/01/17 01/02/17 23:20 23:20 06:07 Creatine Kinase 23 L 22 L CK-MB (CK-2) 0.36 Troponin I < 0.012 NT-Pro-B Natriuret Pep 01/02/17 01/04/17 06:07 05:45 Creatine Kinase CK-MB (CK-2) 0.47 Troponin I < 0.012 NT-Pro-B Natriuret Pep 37563 H Impressions: Cervical Spine CT 01/01/17 08:43 IMPRESSION: Considerable motion artifact. No fracture identified. If clinical suspicion of fracture persists, repeat imaging when the patient is more stable is recommended. Head CT 01/01/17 08:43 IMPRESSION: No visualized intracranial hemorrhage or fracture. Frontal soft tissue swelling. Significant patient motion limits evaluation of the lower cerebrum, skullbase and posterior fossa. Repeat exam recommended if there is high clinical suspicion. Hip X-Ray 01/01/17 08:43 IMPRESSION: No acute finding. Chest X-Ray 01/05/17 06:00 IMPRESSION: Persistent small pleural effusions and basilar airspace disease. Support lines and tubes remain in satisfactory position. Assessment & Plan - Diagnosis (1) Dementia Is this a current diagnosis for this admission?: Yes (2) End-stage renal disease on hemodialysis Is this a current diagnosis for this admission?: YesPlan: on hemodialysis (3) Respiratory failure Qualifiers: Chronicity: acute Is this a current diagnosis for this admission?: YesPlan: mental status ability to protect airway deerent to extubation (4) Septic shock Is this a current diagnosis for this admission?: Yes - Time Critical Time spent with patient: 35 or more minutes
[2017-01-05] MEDS: MIRTAZAPINE 15 MG TABLET PO SCH (22:26)
[2017-01-06] MEDS: PROPOFOL 100 ML IV PRN ×4 (03:27→20:47)
[2017-01-06 05:26] LABS: ABSOLUTE EOSINOPHILS # (AUTO) 0.1 10^3/uL (0.0-0.6); ABSOLUTE LYMPHOCYTES (AUTO) 0.6 10^3/uL (0.5-4.7); ABSOLUTE MONOCYTES (AUTO) 0.6 10^3/uL (0.1-1.4); ABSOLUTE NEUT (AUTO) 8.2 10^3/uL (1.7-8.2); BASOPHILS % (AUTO) 0.3 % (0-2); EOSINOPHILS % (AUTO) 1.5 % (0-6); HEMATOCRIT 31.6 % (36.0-47.0); HEMOGLOBIN 10.5 g/dL (12.0-15.5); HGB HCT DIFFERENCE -0.1; LYMPHOCYTES % (AUTO) 6.2 % (13-45); MEAN CORPUSCULAR HEMOGLOBIN 28.5 pg (27.0-33.4); MEAN CORPUSCULAR HGB CONC 33.2 g/dL (32.0-36.0); MEAN CORPUSCULAR VOLUME 86 fl (80-97); MONOCYTES % (AUTO) 6.2 % (3-13); RED BLOOD COUNT 3.69 10^6/uL (3.72-5.28); SEGMENTED NEUTROPHILS % (AUTO) 85.8 % (42-78); WHITE BLOOD COUNT 9.6 10^3/uL (4.0-10.5)
[2017-01-06 05:28] LABS: ARTERIAL BLOOD BASE EXCESS 2.5 mmol/L; ARTERIAL BLOOD O2 SATURATION 91.9 % (94-98)
[2017-01-06 05:39] LABS: ANION GAP 9 (5-19); BLOOD UREA NITROGEN 23 mg/dL (7-20); CALCIUM 8.8 mg/dL (8.4-10.2); CARBON DIOXIDE 24 mmol/L (22-30); CHLORIDE 99 mmol/L (98-107); CREATININE RESULT 4.11 mg/dL (0.52-1.25); GLUCOSE 189 mg/dL (75-110); MAGNESIUM 1.7 mg/dL (1.6-2.3); POTASSIUM 3.2 mmol/L (3.6-5.0); SODIUM 132.2 mmol/L (137-145)
[2017-01-06] MEDS: CALCIUM ACETATE 667 MG CAPSULE PO SCH ×3 (08:04→18:32)
[2017-01-06 09:37] LABS: HEPATITIS C QUANTITATION HCV Not Detected IU/mL (.)
[2017-01-06] MEDS: FLUTICASONE NASAL SPRAY 50 MCG/SPRY 120 SPRAY/16 GM NAREB SCH ×2 (10:21→22:33)
[2017-01-06] MEDS: FUROSEMIDE 40 MG TABLET PO SCH ×2 (10:21→18:33)
[2017-01-06] MEDS: LACTOBACILLUS ACIDOPHILUS 250 MG TAB PO SCH ×2 (10:22→18:33)
[2017-01-06] MEDS: SITAGLIPTIN PHOSPHATE 25 MG TABLET PO SCH (10:22)
[2017-01-06] MEDS: LANSOPRAZOLE 15 MG TAB.RAP.DR PO SCH (10:22)
[2017-01-06] MEDS: CARVEDILOL 12.5 MG TABLET PO SCH ×2 (10:22→22:33)
[2017-01-06] MEDS: TIMOLOL MALEATE 0.5% OPH SOLN 5 ML OU SCH ×2 (10:22→22:33)
[2017-01-06] MEDS: BUDESONIDE/FORMOTEROL 160-4.5 MCG 60 PUFF/6 GM MDI IH SCH ×2 (10:23→22:33)
[2017-01-06] MEDS: IMIPENEM/CILASTATIN SODIUM 500 MG in NORMAL SALINE 100 ML IV SCH ×2 (11:06→22:32)
[2017-01-06] MEDS: DEXTROSE 5%-NORMAL SALINE 1,000 ML IV PRN (12:10)
--- NOTE | 2017-01-06 14:48 | PDOC PROGRESS REPORT ---
Subjective Progress Note for:: 01/06/17 Subjective:: sedated intubated Physical Exam Vital Signs: Temp Pulse Resp BP Pulse Ox 97.5 F 71 16 117/44 L 100 01/06/17 08:00 01/06/17 08:00 01/06/17 08:00 01/06/17 08:00 01/06/17 08:50 Intake & Output 01/05/17 01/06/17 01/07/17 06:59 06:59 06:59 Intake Total 2809 1862 Output Total 316 445 11 Balance 2493 1417 -11 Weight 73.4 kg 76.4 kg General appearance: PRESENT: no acute distress, disheveled Head exam: PRESENT: atraumatic Eye exam: PRESENT: conjunctiva pale Mouth exam: PRESENT: dry mucosa, neck supple, other - Endotracheal tube in place Neck exam: ABSENT: carotid bruit, JVD, lymphadenopathy, thyromegaly Respiratory exam: PRESENT: decreased breath sounds, prolonged expiratory phas, rhonchi, symmetrical Cardiovascular exam: PRESENT: irregular rhythm Pulses: PRESENT: normal radial pulses GI/Abdominal exam: PRESENT: normal bowel sounds, soft. ABSENT: distended, guarding, mass, organolmegaly, rebound, tenderness Rectal exam: PRESENT: deferred Gentrourinary exam: PRESENT: indwelling catheter Musculoskeletal exam: PRESENT: normal inspection Skin exam: PRESENT: dry, warm Results Laboratory Results: 01/06/17 04:47 01/06/17 04:47 01/06/17 01/06/17 01/06/17 04:47 04:47 05:15 WBC 9.6 RBC 3.69 L Hgb 10.5 L Hct 31.6 L MCV 86 MCH 28.5 MCHC 33.2 RDW 17.0 H Plt Count 135 L Seg Neutrophils % 85.8 H Lymphocytes % 6.2 L Monocytes % 6.2 Eosinophils % 1.5 Basophils % 0.3 Absolute Neutrophils 8.2 Absolute Lymphocytes 0.6 Absolute Monocytes 0.6 Absolute Eosinophils 0.1 Absolute Basophils 0.0 Carbonic Acid 1.09 HCO3/H2CO3 Ratio 23:1 ABG pH 7.47 H ABG pCO2 36.3 ABG pO2 57.9 L ABG HCO3 26.1 H ABG O2 Saturation 91.9 L ABG Base Excess 2.5 FiO2 21% Sodium 132.2 L Potassium 3.2 L Chloride 99 Carbon Dioxide 24 Anion Gap 9 BUN 23 H Creatinine 4.11 H Est GFR ( Amer) 12 L Est GFR (Non-Af Amer) 10 L Glucose 189 H Calcium 8.8 Magnesium 1.7 01/04/17 07:27 Nasophary (Mrs[facility] Only) MRSA Surveillance Culture - Final NO MRSA RECOVERED 01/01/17 01/01/17 01/02/17 23:20 23:20 06:07 Creatine Kinase 23 L 22 L CK-MB (CK-2) 0.36 Troponin I < 0.012 NT-Pro-B Natriuret Pep 01/02/17 01/04/17 06:07 05:45 Creatine Kinase CK-MB (CK-2) 0.47 Troponin I < 0.012 NT-Pro-B Natriuret Pep 33368 H Impressions: Cervical Spine CT 01/01/17 08:43 IMPRESSION: Considerable motion artifact. No fracture identified. If clinical suspicion of fracture persists, repeat imaging when the patient is more stable is recommended. Head CT 01/01/17 08:43 IMPRESSION: No visualized intracranial hemorrhage or fracture. Frontal soft tissue swelling. Significant patient motion limits evaluation of the lower cerebrum, skullbase and posterior fossa. Repeat exam recommended if there is high clinical suspicion. Hip X-Ray 01/01/17 08:43 IMPRESSION: No acute finding. Chest X-Ray 01/06/17 06:00 IMPRESSION: New bilateral perihilar densities seen throughout both lung talbert. Assessment & Plan - Diagnosis (1) Dementia Is this a current diagnosis for this admission?: Yes (2) End-stage renal disease on hemodialysis Is this a current diagnosis for this admission?: YesPlan: on hemodialysis (3) Respiratory failure Qualifiers: Chronicity: acute Is this a current diagnosis for this admission?: YesPlan: mental status ability to protect airway unable to extubate at this time (4) Septic shock Is this a current diagnosis for this admission?: Yes - Time Critical Time spent with patient: 35 or more minutes
--- NOTE | 2017-01-06 17:48 | PDOC PROGRESS REPORT ---
Subjective Progress Note for:: 01/06/17 Subjective:: I saw the patient before initiation of hemodialysis this afternoon and after hemodialysis at this time. Patient was dialyze for 2 and half hours because she clotted her system so dialysis was stopped prematurely. We were able to take off ultrafiltration of 2.3 L. Patient is also given a require another central line. Patient has required Levoped to be restarted so that we can do some ultrafiltration during the hemodialysis. She otherwise tolerating hemodialysis at some ultrafiltration. She remained to be intubated and sedated. Physical Exam Vital Signs: Temp Pulse Resp BP Pulse Ox 97.7 F 76 16 166/80 H 98 01/06/17 16:00 01/06/17 16:00 01/06/17 16:00 01/06/17 16:00 01/06/17 16:25 Intake & Output 01/05/17 01/06/17 01/07/17 06:59 06:59 06:59 Intake Total 2809 1862 60 Output Total 196 626 0805 Balance 2493 1417 -2266 Weight 73.4 kg 76.4 kg Vital signs during the end of hemodialysis treatment as follow: Of 109/42, heart rate of 67, blood flow rate of 300 mL per minute, dialysate flow rate of 600 mL per minute. Exam: General appearance: PRESENT: Patient is intubated and sedated Head exam: PRESENT: normocephalic, improving bilateral ecchymosis around her eyes and forehead Eye exam: PRESENT: conjunctiva pale, PERRLA. ABSENT: scleral icterus Neck exam: ABSENT: JVD Respiratory exam: PRESENT: Diminished breath sounds. ABSENT: crackles, rales, rhonchi, unlabored, wheezes Cardiovascular exam: PRESENT: Regular rate rhythm -+S1, +S2. ABSENT: diastolic murmur, systolic murmur GI/Abdominal exam: PRESENT: normal bowel sounds, soft. ABSENT: guarding, mass, tenderness Extremities exam: There is bilateral upper extremity edema but no lower extremity edema Neurological exam: PRESENT: Patient is sedated Skin exam: PRESENT: dry, warm, Results Laboratory Results: 01/06/17 04:47 01/06/17 04:47 01/06/17 01/06/17 01/06/17 04:47 04:47 05:15 WBC 9.6 RBC 3.69 L Hgb 10.5 L Hct 31.6 L MCV 86 MCH 28.5 MCHC 33.2 RDW 17.0 H Plt Count 135 L Seg Neutrophils % 85.8 H Lymphocytes % 6.2 L Monocytes % 6.2 Eosinophils % 1.5 Basophils % 0.3 Absolute Neutrophils 8.2 Absolute Lymphocytes 0.6 Absolute Monocytes 0.6 Absolute Eosinophils 0.1 Absolute Basophils 0.0 Carbonic Acid 1.09 HCO3/H2CO3 Ratio 23:1 ABG pH 7.47 H ABG pCO2 36.3 ABG pO2 57.9 L ABG HCO3 26.1 H ABG O2 Saturation 91.9 L ABG Base Excess 2.5 FiO2 21% Sodium 132.2 L Potassium 3.2 L Chloride 99 Carbon Dioxide 24 Anion Gap 9 BUN 23 H Creatinine 4.11 H Est GFR ( Amer) 12 L Est GFR (Non-Af Amer) 10 L Glucose 189 H Calcium 8.8 Magnesium 1.7 01/01/17 01/01/17 01/02/17 23:20 23:20 06:07 Creatine Kinase 23 L 22 L CK-MB (CK-2) 0.36 Troponin I < 0.012 NT-Pro-B Natriuret Pep 01/02/17 01/04/17 06:07 05:45 Creatine Kinase CK-MB (CK-2) 0.47 Troponin I < 0.012 NT-Pro-B Natriuret Pep 17159 H Impressions: Cervical Spine CT 01/01/17 08:43 IMPRESSION: Considerable motion artifact. No fracture identified. If clinical suspicion of fracture persists, repeat imaging when the patient is more stable is recommended. Head CT 01/01/17 08:43 IMPRESSION: No visualized intracranial hemorrhage or fracture. Frontal soft tissue swelling. Significant patient motion limits evaluation of the lower cerebrum, skullbase and posterior fossa. Repeat exam recommended if there is high clinical suspicion. Hip X-Ray 01/01/17 08:43 IMPRESSION: No acute finding. Chest X-Ray 01/06/17 06:00 IMPRESSION: New bilateral perihilar densities seen throughout both lung talbert. Assessment & Plan - Diagnosis (1) End-stage renal disease on hemodialysis Is this a current diagnosis for this admission?: YesPlan: We did dialysis today for 2-1/2 hours, using the patient's be AV fistula, with 3 potassium bath, blood flow rate of 300 mL per minute, dialysate flow rate of 600 mL per minute, ultrafiltration 2.5 L, no heparin and no Procrit during dialysis. Patient tolerated dialysis. Levoped was restarted during dialysis. We'll continue hemodialysis support for us long as the family wishes and for us long as the patient is tolerating it while here in hospital. (2) Sepsis Is this a current diagnosis for this admission?: YesPlan: Likely due to UTI. (3) UTI (urinary tract infection) Qualifiers: Urinary tract infection type: site unspecified Hematuria presence: with hematuria Qualified Code(s): N39.0 - Urinary tract infection, site not specified Is this a current diagnosis for this admission?: YesPlan: Due to ESBL Escherichia coli. Continue antibiotics per Dr. Richardson. (4) Contusion of face Is this a current diagnosis for this admission?: Yes (5) Metabolic encephalopathy Is this a current diagnosis for this admission?: Yes - Notes Notes: Case discussed with Dr. Richardson today. - Time Time with patient: 15-25 minutes
[2017-01-06] MEDS: ASPIRIN 81 MG TABLET, CHEWABLE PO SCH (18:32)
[2017-01-06] MEDS: CETIRIZINE HCL ORAL SOLN 5 MG/5 ML UDCUP PO SCH (18:32)
[2017-01-06] MEDS: FOLIC ACID/VITAMIN B COMP W-C CAPSULE PO SCH (18:32)
[2017-01-06] MEDS: CITALOPRAM HYDROBROMIDE 20 MG TABLET PO SCH (18:33)
[2017-01-06] MEDS: DOCUSATE SODIUM 100 MG CAPSULE PO SCH (18:33)
--- NOTE | 2017-01-06 20:37 | PDOC PROGRESS REPORT ---
Subjective Progress Note for:: 01/06/17 Subjective:: Patient still on mechanical ventilation, discussed case with family about CODE STATUS, she is septic shock requiring intravenous pressors, urine culture grew ESBL E. coli IV antibiotic was changed to ertapenem Physical Exam Vital Signs: Temp Pulse Resp BP Pulse Ox 98.1 F 74 16 134/65 H 96 01/06/17 18:00 01/06/17 18:00 01/06/17 19:19 01/06/17 19:19 01/06/17 19:19 Intake & Output 01/05/17 01/06/17 01/07/17 06:59 06:59 06:59 Intake Total 2809 1862 793 Output Total 210 837 3311 Balance 2973 0774 -6735 Weight 73.4 kg 76.4 kg Eye exam: PRESENT: PERRLA Respiratory exam: PRESENT: rhonchi Cardiovascular exam: PRESENT: +S1, +S2 GI/Abdominal exam: PRESENT: soft Results Laboratory Results: 01/06/17 04:47 01/06/17 04:47 01/06/17 01/06/17 01/06/17 04:47 04:47 05:15 WBC 9.6 RBC 3.69 L Hgb 10.5 L Hct 31.6 L MCV 86 MCH 28.5 MCHC 33.2 RDW 17.0 H Plt Count 135 L Seg Neutrophils % 85.8 H Lymphocytes % 6.2 L Monocytes % 6.2 Eosinophils % 1.5 Basophils % 0.3 Absolute Neutrophils 8.2 Absolute Lymphocytes 0.6 Absolute Monocytes 0.6 Absolute Eosinophils 0.1 Absolute Basophils 0.0 Carbonic Acid 1.09 HCO3/H2CO3 Ratio 23:1 ABG pH 7.47 H ABG pCO2 36.3 ABG pO2 57.9 L ABG HCO3 26.1 H ABG O2 Saturation 91.9 L ABG Base Excess 2.5 FiO2 21% Sodium 132.2 L Potassium 3.2 L Chloride 99 Carbon Dioxide 24 Anion Gap 9 BUN 23 H Creatinine 4.11 H Est GFR ( Amer) 12 L Est GFR (Non-Af Amer) 10 L Glucose 189 H Calcium 8.8 Magnesium 1.7 01/01/17 01/01/17 01/02/17 23:20 23:20 06:07 Creatine Kinase 23 L 22 L CK-MB (CK-2) 0.36 Troponin I < 0.012 NT-Pro-B Natriuret Pep 01/02/17 01/04/17 06:07 05:45 Creatine Kinase CK-MB (CK-2) 0.47 Troponin I < 0.012 NT-Pro-B Natriuret Pep 01145 H Impressions: Cervical Spine CT 01/01/17 08:43 IMPRESSION: Considerable motion artifact. No fracture identified. If clinical suspicion of fracture persists, repeat imaging when the patient is more stable is recommended. Head CT 01/01/17 08:43 IMPRESSION: No visualized intracranial hemorrhage or fracture. Frontal soft tissue swelling. Significant patient motion limits evaluation of the lower cerebrum, skullbase and posterior fossa. Repeat exam recommended if there is high clinical suspicion. Hip X-Ray 01/01/17 08:43 IMPRESSION: No acute finding. Chest X-Ray 01/06/17 17:39 IMPRESSION: 1. CENTRAL LINE ON THE LEFT SIDE DESCRIBED. CANNOT ASCERTAIN THE EXACT POSITION OF THE TIP. NO PNEUMOTHORAX. 2. OTHERWISE STABLE APPEARANCE OF THE CHEST. POSSIBLE SLIGHT IMPROVED AERATION. Assessment & Plan - Diagnosis (1) Urinary tract infection Qualifiers: Urinary tract infection type: site unspecified Hematuria presence: without hematuria Qualified Code(s): N39.0 - Urinary tract infection, site not specified Is this a current diagnosis for this admission?: Yes (2) Metabolic encephalopathy Is this a current diagnosis for this admission?: Yes (3) Severe persistent allergic asthma with acute exacerbation Is this a current diagnosis for this admission?: Yes (4) End-stage renal disease on hemodialysis Is this a current diagnosis for this admission?: Yes (5) Hypoglycemia Is this a current diagnosis for this admission?: Yes (6) Contusion of face Qualifiers: Encounter type: initial encounter Qualified Code(s): S00.83XA - Contusion of other part of head, initial encounter Is this a current diagnosis for this admission?: Yes (7) Septic shock Is this a current diagnosis for this admission?: Yes (8) UTI due to extended-spectrum beta lactamase (ESBL) producing Escherichia coli Is this a current diagnosis for this admission?: Yes (9) Septic shock Is this a current diagnosis for this admission?: Yes - Plan Summary Plan Summary: The IV antibiotic was changed to ertapenem, CODE STATUS discussed with family , they will discuss among themselves
--- NOTE | 2017-01-06 21:03 | OPERATIVE REPORT E ---
Operative Report NAME: VAISHALI GODOY : 1930 AGE: 86Y DATE OF SURGERY: 01/06/2017 ROOM: 605 PREOPERATIVE DIAGNOSIS: Need of central venous access. POSTOPERATIVE DIAGNOSIS: Need of central venous access. OPERATION: Placement of left internal jugular vein central venous access with triple-lumen catheter. SURGEON: DUKE PIÑA M.D. WOOL SACKER: None. BLOOD LOSS: Minimal. COMPLICATIONS: None. ANESTHESIA: None. INDICATION AND FINDINGS: This is an 86-year-old female who requires central venous access, and I have been requested to place a central venous triple-lumen catheter. DESCRIPTION OF PROCEDURE: Procedure was done at bedside in the ICU. The patient was placed in supine Trendelenburg position. The left side of her neck and chest were prepped and draped in the usual fashion. Sterile dressing was then applied. A SonoSite was then utilized to identify the left internal jugular vein. A 16-gauge needle was used to cannulate the left internal jugular vein. At this point, a guidewire was inserted and it stopped at 20 cm. The insertion point for the guidewire was enlarged with a tissue dilator and with a #11 blade. The tissue dilator was removed. The triple-lumen catheter was inserted over the guidewire up to about 15 cm. The guidewire was then removed. The catheter was secured in place with silk sutures. Each port of the catheter was aspirated, but only the distal and the proximal were able to produce blood return with some manipulation of the line. 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 The catheter was secured in place. Dressing was applied. A chest x-ray was then obtained which confirmed the presence of the tip of the catheter in the junction between the innominate and superior vena cava. DICTATING PHYSICIAN: DUKE PIÑA M.D. [id number] PHY#: [id number] ID: [id number] JOB#: [id number] ACCT: [id number] cc:DUKE PIÑA M.D. > MTDD
--- NOTE | 2017-01-06 21:28 | CONSULTATION REPORT E ---
Consultation Report NAME: VAISHALI GODOY : 01/30/1957 AGE: 86Y DATE: 01/06/2017 335 A TO: DUKE PIÑA M.D. FROM: CHENTE MERCEDES M.D. Requesting Physician Thank you for asking me to see this 59-year-old female in need of central venous triple-lumen access for administration of IV antibiotics. PHYSICAL EXAMINATION: Chest is systemic bilaterally. No areas of deformity or injury. ASSESSMENT AND PLAN: 1. A 86-year-old female with sepsis in need of central venous triple-lumen catheter for administration of medication and antibiotics. 2. We will plan to place the line today. The procedure risks, benefits, and complications were explained to the patient. She understands and decides to proceed. DICTATING PHYSICIAN: DUKE PIÑA M.D. [id number] PHY#: [id number] ID: [id number] JOB#: [id number] ACCT: [id number] cc:DUKE PIÑA M.D. > MELINDA
[2017-01-06] MEDS: MIRTAZAPINE 15 MG TABLET PO SCH (22:33)
[2017-01-07] MEDS: PROPOFOL 100 ML IV PRN ×3 (02:31→22:11)
[2017-01-07 05:17] LABS: ARTERIAL BLOOD BASE EXCESS 3.7 mmol/L; ARTERIAL BLOOD O2 SATURATION 92.3 % (94-98)
[2017-01-07 05:18] LABS: HEMATOCRIT 30.8 % (36.0-47.0); HEMOGLOBIN 10.3 g/dL (12.0-15.5); HGB HCT DIFFERENCE 0.1; MEAN CORPUSCULAR HEMOGLOBIN 28.3 pg (27.0-33.4); MEAN CORPUSCULAR HGB CONC 33.5 g/dL (32.0-36.0); MEAN CORPUSCULAR VOLUME 85 fl (80-97); RED BLOOD COUNT 3.65 10^6/uL (3.72-5.28); RED CELL DISTRIBUTION WIDTH 16.5 % (11.5-14.0); WHITE BLOOD COUNT 7.4 10^3/uL (4.0-10.5)
[2017-01-07 05:34] LABS: ANION GAP 8 (5-19); BLOOD UREA NITROGEN 17 mg/dL (7-20); CALCIUM 8.6 mg/dL (8.4-10.2); CARBON DIOXIDE 28 mmol/L (22-30); CHLORIDE 100 mmol/L (98-107); CREATININE RESULT 2.88 mg/dL (0.52-1.25); GLUCOSE 182 mg/dL (75-110); MAGNESIUM 1.6 mg/dL (1.6-2.3); POTASSIUM 3.1 mmol/L (3.6-5.0); SODIUM 135.7 mmol/L (137-145); TRIGLYCERIDES 124 mg/dL (<150)
[2017-01-07 06:05] LABS: BASOPHILS % (MANUAL) 1 % (0-2); EOSINOPHILS % (MANUAL) 1 % (0-6); LYMPHOCYTES % (MANUAL) 13 % (13-45); OVALOCYTES SLIGHT; POIKILOCYTOSIS SLIGHT; POLYCHROMASIA SLIGHT; SCHISTOCYTES SLIGHT; TOTAL CELLS COUNTED 100; TOXIC GRANULATION 1+
[2017-01-07] MEDS: CALCIUM ACETATE 667 MG CAPSULE PO SCH ×2 (10:35→18:06)
[2017-01-07] MEDS: SITAGLIPTIN PHOSPHATE 25 MG TABLET PO SCH (10:35)
[2017-01-07] MEDS: FUROSEMIDE 40 MG TABLET PO SCH ×2 (10:36→18:07)
[2017-01-07] MEDS: IMIPENEM/CILASTATIN SODIUM 500 MG in NORMAL SALINE 100 ML IV SCH ×2 (10:37→21:34)
[2017-01-07] MEDS: TIMOLOL MALEATE 0.5% OPH SOLN 5 ML OU SCH ×2 (10:38→21:35)
[2017-01-07] MEDS: LANSOPRAZOLE 15 MG TAB.RAP.DR PO SCH (10:38)
[2017-01-07] MEDS: CARVEDILOL 12.5 MG TABLET PO SCH ×2 (10:39→21:35)
[2017-01-07] MEDS: FLUTICASONE NASAL SPRAY 50 MCG/SPRY 120 SPRAY/16 GM NAREB SCH ×2 (10:39→21:33)
[2017-01-07] MEDS: LACTOBACILLUS ACIDOPHILUS 250 MG TAB PO SCH ×2 (10:39→18:09)
[2017-01-07] MEDS: BUDESONIDE/FORMOTEROL 160-4.5 MCG 60 PUFF/6 GM MDI IH SCH ×2 (10:39→21:33)
--- NOTE | 2017-01-07 10:58 | CONSULTATION REPORT E ---
Consultation Report NAME: VAISHALI GODOY : 1930 AGE: 86Y DATE: 605 A TO: DUKE PIÑA M.D. FROM: ALONDRA PHILLIPS M.D. Requesting Physician Thank you for asking me to see this 59-year-old female -[place] with end-stage renal disease on hemodialysis. Currently intubated and sedated, in need of central venous access for administration of medications. PHYSICAL EXAMINATION: Chest is symmetric bilaterally. No evidence of injury. ASSESSMENT/PLAN: 1. Patient on current hemodialysis for end-stage renal disease via the right upper extremity. 2. Patient currently intubated and sedated. 3. Need intravenous access. PLAN: Intravenous access for administration of medication. Plan placement of intravenous central venous line. DICTATING PHYSICIAN: DUKE PIÑA M.D. [id number] PHY#: [id number] ID: [id number] JOB#: [id number] ACCT: [id number] cc:DUKE PIÑA M.D. > MTDGlenis
--- NOTE | 2017-01-07 11:01 | OPERATIVE REPORT E ---
Operative Report NAME: VAISHALI GODOY : 1930 AGE: 86Y DATE OF SURGERY: 01/06/2017 ROOM: 605 PREOPERATIVE DIAGNOSIS: Need of intravenous access for the administration of medication and drugs. POSTOPERATIVE DIAGNOSIS: Need of intravenous access for the administration of medication and drugs. OPERATION: Left subclavian vein central venous line. SURGEON: DUKE PIÑA M.D. SHIP ERECTOR: None. BLOOD LOSS: Minimal. COMPLICATIONS: None. ANESTHESIA: Local with 5 mL of 1% lidocaine without epinephrine. INDICATION AND FINDINGS: This is a 86-year-old female currently intubated and sedated on hemodialysis via right upper extremity line in need of central venous access for the administration of medication and drugs. DESCRIPTION OF PROCEDURE: The procedure was done at bedside. The patient was placed in supine Trendelenburg position. A towel was placed in between her shoulder blades. The left side of the neck and chest were prepped and draped in the usual fashion. The area just below the mid portion of the clavicle was then approached with a 16-gauge needle which was advanced. At the third attempt, a good return of venous blood was obtained. The guidewire was inserted over the needle into the subclavian vein and superior vena cava. The needle was removed. The guidewire insertion point was enlarged with a tissue dilator, which was removed as well. A triple-lumen catheter was inserted over the guidewire into the subclavian vein and superior vena cava. The guidewire was removed. Each port of the catheter was then aspirated and flushed with heparin solution without any difficulty. The catheter was secured in place with sutures, and sterile dressing was applied. The patient tolerated the procedure well. A chest x-ray was obtained that confirmed position of the line. DICTATING PHYSICIAN: DUKE PIÑA M.D. [id number] PHY#: [id number] ID: [id number] JOB#: [id number] ACCT: [id number] cc:DUKE PIÑA M.D. > MTDD
[2017-01-07] MEDS: HEPARIN SOD (PORCINE) 5,000 UNIT/ML 1 ML SYRINGE SUBCUT SCH (14:59)
--- NOTE | 2017-01-07 16:51 | PDOC PROGRESS REPORT ---
Subjective Progress Note for:: 01/07/17 Subjective:: Weaning trial was done today and patient woke up a little bit according to the nurse, even following some simple commands but still unable to be extubated. So she remains to be intubated and currently sedated. Physical Exam Vital Signs: Temp Pulse Resp BP Pulse Ox 99.9 F 81 15 98/44 L 99 01/07/17 12:00 01/07/17 14:00 01/07/17 15:00 01/07/17 16:07 01/07/17 16:30 Intake & Output 01/06/17 01/07/17 01/08/17 06:59 06:59 06:59 Intake Total 1862 1735 Output Total 445 5496 20 Balance 4757 -5081 -20 Weight 76.4 kg 71 kg Exam: General appearance: PRESENT: Intubated and sedated Head exam: PRESENT: normocephalic, bilateral ecchymosis around the eyes are resolving Eye exam: PRESENT: conjunctiva pale, PERRLA. ABSENT: scleral icterus Neck exam: ABSENT: JVD Respiratory exam: PRESENT: Diminished breath sounds. ABSENT: crackles, rales, rhonchi, unlabored, wheezes Cardiovascular exam: PRESENT: Regular rate rhythm -+S1, +S2. ABSENT: diastolic murmur, systolic murmur GI/Abdominal exam: PRESENT: normal bowel sounds, soft. ABSENT: guarding, mass, tenderness Extremities exam: ABSENT: No edema on lower extremities; upper extremity edema on both arms are improved Neurological exam: PRESENT: Sedated Skin exam: PRESENT: dry, warm, Results Laboratory Results: 01/07/17 05:00 01/07/17 05:00 01/07/17 01/07/17 01/07/17 05:00 05:00 05:00 WBC 7.4 RBC 3.65 L Hgb 10.3 L Hct 30.8 L MCV 85 MCH 28.3 MCHC 33.5 RDW 16.5 H Plt Count 138 L Seg Neutrophils % Not Reportable Lymphocytes % Not Reportable Monocytes % Not Reportable Eosinophils % Not Reportable Basophils % Not Reportable Absolute Neutrophils Not Reportable Absolute Lymphocytes Not Reportable Absolute Monocytes Not Reportable Absolute Eosinophils Not Reportable Absolute Basophils Not Reportable Carbonic Acid 1.10 HCO3/H2CO3 Ratio 24:1 ABG pH 7.49 H ABG pCO2 36.5 ABG pO2 58.2 L ABG HCO3 27.1 H ABG O2 Saturation 92.3 L ABG Base Excess 3.7 FiO2 21% Sodium 135.7 L Potassium 3.1 L Chloride 100 Carbon Dioxide 28 Anion Gap 8 BUN 17 Creatinine 2.88 H Est GFR ( Amer) 19 L Est GFR (Non-Af Amer) 15 L Glucose 182 H Calcium 8.6 Magnesium 1.6 Triglycerides 124 01/01/17 01/01/17 01/02/17 23:20 23:20 06:07 Creatine Kinase 23 L 22 L CK-MB (CK-2) 0.36 Troponin I < 0.012 NT-Pro-B Natriuret Pep 01/02/17 01/04/17 06:07 05:45 Creatine Kinase CK-MB (CK-2) 0.47 Troponin I < 0.012 NT-Pro-B Natriuret Pep 38139 H Impressions: Cervical Spine CT 01/01/17 08:43 IMPRESSION: Considerable motion artifact. No fracture identified. If clinical suspicion of fracture persists, repeat imaging when the patient is more stable is recommended. Head CT 01/01/17 08:43 IMPRESSION: No visualized intracranial hemorrhage or fracture. Frontal soft tissue swelling. Significant patient motion limits evaluation of the lower cerebrum, skullbase and posterior fossa. Repeat exam recommended if there is high clinical suspicion. Hip X-Ray 01/01/17 08:43 IMPRESSION: No acute finding. Chest X-Ray 01/07/17 06:00 IMPRESSION: Stable appearance. Assessment & Plan - Diagnosis (1) Hypokalemia Is this a current diagnosis for this admission?: YesPlan: We will give potassium replacement of 40 mEq intravenously today. (2) End-stage renal disease on hemodialysis Is this a current diagnosis for this admission?: YesPlan: We will plan for dialysis tomorrow. (3) Septic shock Is this a current diagnosis for this admission?: YesPlan: On antibiotics. Currently off pressors. (4) UTI (urinary tract infection) Qualifiers: Urinary tract infection type: site unspecified Hematuria presence: with hematuria Qualified Code(s): N39.0 - Urinary tract infection, site not specified Is this a current diagnosis for this admission?: YesPlan: Due to ESBL Escherichia coli. Continue antibiotics per Dr. Richardson. (5) Anemia in chronic kidney disease Is this a current diagnosis for this admission?: Yes (6) Metabolic encephalopathy Is this a current diagnosis for this admission?: YesPlan: Due to UTI and sepsis with underlying progressive dementia. (7) Contusion of face Is this a current diagnosis for this admission?: Yes - Time Time with patient: 15-25 minutes
--- NOTE | 2017-01-07 17:09 | PDOC PROGRESS REPORT ---
Subjective Progress Note for:: 01/07/17 Subjective:: sedated intubated Physical Exam Vital Signs: Temp Pulse Resp BP Pulse Ox 99.9 F 81 15 98/44 L 99 01/07/17 12:00 01/07/17 14:00 01/07/17 15:00 01/07/17 16:07 01/07/17 16:30 Intake & Output 01/06/17 01/07/17 01/08/17 06:59 06:59 06:59 Intake Total 1862 1735 Output Total 445 5496 20 Balance 1417 -3761 -20 Weight 76.4 kg 71 kg General appearance: PRESENT: no acute distress, disheveled Head exam: PRESENT: atraumatic, normocephalic Eye exam: PRESENT: conjunctiva pale Neck exam: ABSENT: carotid bruit, JVD, lymphadenopathy, thyromegaly Respiratory exam: PRESENT: decreased breath sounds, prolonged expiratory phas, rales, rhonchi, symmetrical, unlabored Cardiovascular exam: PRESENT: irregular rhythm Pulses: PRESENT: normal radial pulses GI/Abdominal exam: PRESENT: normal bowel sounds, soft. ABSENT: distended, guarding, mass, organolmegaly, rebound, tenderness Rectal exam: PRESENT: deferred Gentrourinary exam: PRESENT: indwelling catheter Musculoskeletal exam: PRESENT: normal inspection Skin exam: PRESENT: dry, warm Results Laboratory Results: 01/07/17 05:00 01/07/17 05:00 01/07/17 01/07/17 01/07/17 05:00 05:00 05:00 WBC 7.4 RBC 3.65 L Hgb 10.3 L Hct 30.8 L MCV 85 MCH 28.3 MCHC 33.5 RDW 16.5 H Plt Count 138 L Seg Neutrophils % Not Reportable Lymphocytes % Not Reportable Monocytes % Not Reportable Eosinophils % Not Reportable Basophils % Not Reportable Absolute Neutrophils Not Reportable Absolute Lymphocytes Not Reportable Absolute Monocytes Not Reportable Absolute Eosinophils Not Reportable Absolute Basophils Not Reportable Carbonic Acid 1.10 HCO3/H2CO3 Ratio 24:1 ABG pH 7.49 H ABG pCO2 36.5 ABG pO2 58.2 L ABG HCO3 27.1 H ABG O2 Saturation 92.3 L ABG Base Excess 3.7 FiO2 21% Sodium 135.7 L Potassium 3.1 L Chloride 100 Carbon Dioxide 28 Anion Gap 8 BUN 17 Creatinine 2.88 H Est GFR ( Amer) 19 L Est GFR (Non-Af Amer) 15 L Glucose 182 H Calcium 8.6 Magnesium 1.6 Triglycerides 124 01/01/17 01/01/17 01/02/17 23:20 23:20 06:07 Creatine Kinase 23 L 22 L CK-MB (CK-2) 0.36 Troponin I < 0.012 NT-Pro-B Natriuret Pep 01/02/17 01/04/17 06:07 05:45 Creatine Kinase CK-MB (CK-2) 0.47 Troponin I < 0.012 NT-Pro-B Natriuret Pep 07025 H Impressions: Cervical Spine CT 01/01/17 08:43 IMPRESSION: Considerable motion artifact. No fracture identified. If clinical suspicion of fracture persists, repeat imaging when the patient is more stable is recommended. Head CT 01/01/17 08:43 IMPRESSION: No visualized intracranial hemorrhage or fracture. Frontal soft tissue swelling. Significant patient motion limits evaluation of the lower cerebrum, skullbase and posterior fossa. Repeat exam recommended if there is high clinical suspicion. Hip X-Ray 01/01/17 08:43 IMPRESSION: No acute finding. Chest X-Ray 01/07/17 06:00 IMPRESSION: Stable appearance. Assessment & Plan - Diagnosis (1) Dementia Is this a current diagnosis for this admission?: Yes (2) End-stage renal disease on hemodialysis Is this a current diagnosis for this admission?: YesPlan: on hemodialysis (3) Respiratory failure Qualifiers: Chronicity: acute Is this a current diagnosis for this admission?: YesPlan: mental status ability to protect airway insufficient minute ventilation, respiratory rate, FiO2 and airway pressures would otherwise successful extubation successful (4) Septic shock Is this a current diagnosis for this admission?: Yes - Time Critical Time spent with patient: 25-34 minutes
[2017-01-07] MEDS: POTASSI CL 20 MEQ/50 ML RIDER 20 MEQ/50 ML RTUPB IV SCH ×2 (18:04→20:47)
[2017-01-07] MEDS: CITALOPRAM HYDROBROMIDE 20 MG TABLET PO SCH (18:06)
[2017-01-07] MEDS: ASPIRIN 81 MG TABLET, CHEWABLE PO SCH (18:07)
[2017-01-07] MEDS: FOLIC ACID/VITAMIN B COMP W-C CAPSULE PO SCH (18:09)
[2017-01-07] MEDS: DOCUSATE SODIUM 100 MG CAPSULE PO SCH (18:09)
[2017-01-07] MEDS: CETIRIZINE HCL ORAL SOLN 5 MG/5 ML UDCUP PO SCH (18:09)
--- NOTE | 2017-01-07 21:21 | PDOC PROGRESS REPORT ---
Subjective Progress Note for:: 01/07/17 Subjective:: Patient is intubated and sedated in ICU on mechanical ventilation Physical Exam Vital Signs: Temp Pulse Resp BP Pulse Ox 99.1 F 78 16 123/50 L 98 01/07/17 19:43 01/07/17 19:43 01/07/17 19:43 01/07/17 19:43 01/07/17 18:30 Intake & Output 01/06/17 01/07/17 01/08/17 06:59 06:59 06:59 Intake Total 1862 1735 942 Output Total 445 5496 70 Balance 6290 -5512 872 Weight 76.4 kg 71 kg Eye exam: PRESENT: PERRLA Respiratory exam: PRESENT: clear to auscultation kennedi Cardiovascular exam: PRESENT: +S1, +S2 GI/Abdominal exam: PRESENT: soft Neurological exam: PRESENT: alert Results Laboratory Results: 01/07/17 05:00 01/07/17 05:00 01/07/17 01/07/17 01/07/17 05:00 05:00 05:00 WBC 7.4 RBC 3.65 L Hgb 10.3 L Hct 30.8 L MCV 85 MCH 28.3 MCHC 33.5 RDW 16.5 H Plt Count 138 L Seg Neutrophils % Not Reportable Lymphocytes % Not Reportable Monocytes % Not Reportable Eosinophils % Not Reportable Basophils % Not Reportable Absolute Neutrophils Not Reportable Absolute Lymphocytes Not Reportable Absolute Monocytes Not Reportable Absolute Eosinophils Not Reportable Absolute Basophils Not Reportable Carbonic Acid 1.10 HCO3/H2CO3 Ratio 24:1 ABG pH 7.49 H ABG pCO2 36.5 ABG pO2 58.2 L ABG HCO3 27.1 H ABG O2 Saturation 92.3 L ABG Base Excess 3.7 FiO2 21% Sodium 135.7 L Potassium 3.1 L Chloride 100 Carbon Dioxide 28 Anion Gap 8 BUN 17 Creatinine 2.88 H Est GFR ( Amer) 19 L Est GFR (Non-Af Amer) 15 L Glucose 182 H Calcium 8.6 Magnesium 1.6 Triglycerides 124 01/01/17 01/01/17 01/02/17 23:20 23:20 06:07 Creatine Kinase 23 L 22 L CK-MB (CK-2) 0.36 Troponin I < 0.012 NT-Pro-B Natriuret Pep 01/02/17 01/04/17 06:07 05:45 Creatine Kinase CK-MB (CK-2) 0.47 Troponin I < 0.012 NT-Pro-B Natriuret Pep [id number] H Impressions: Cervical Spine CT 01/01/17 08:43 IMPRESSION: Considerable motion artifact. No fracture identified. If clinical suspicion of fracture persists, repeat imaging when the patient is more stable is recommended. Head CT 01/01/17 08:43 IMPRESSION: No visualized intracranial hemorrhage or fracture. Frontal soft tissue swelling. Significant patient motion limits evaluation of the lower cerebrum, skullbase and posterior fossa. Repeat exam recommended if there is high clinical suspicion. Hip X-Ray 01/01/17 08:43 IMPRESSION: No acute finding. Chest X-Ray 01/07/17 06:00 IMPRESSION: Stable appearance. Assessment & Plan - Diagnosis (1) Urinary tract infection Qualifiers: Urinary tract infection type: site unspecified Hematuria presence: without hematuria Qualified Code(s): N39.0 - Urinary tract infection, site not specified Is this a current diagnosis for this admission?: Yes (2) Metabolic encephalopathy Is this a current diagnosis for this admission?: Yes (3) Severe persistent allergic asthma with acute exacerbation Is this a current diagnosis for this admission?: Yes (4) End-stage renal disease on hemodialysis Is this a current diagnosis for this admission?: Yes (5) Hypoglycemia Is this a current diagnosis for this admission?: Yes (6) Contusion of face Qualifiers: Encounter type: initial encounter Qualified Code(s): S00.83XA - Contusion of other part of head, initial encounter Is this a current diagnosis for this admission?: Yes (7) Septic shock Is this a current diagnosis for this admission?: Yes (8) UTI due to extended-spectrum beta lactamase (ESBL) producing Escherichia coli Is this a current diagnosis for this admission?: Yes (9) Septic shock Is this a current diagnosis for this admission?: Yes
[2017-01-07] MEDS: MIRTAZAPINE 15 MG TABLET PO SCH (21:33)
[2017-01-07] MEDS ORDERED: DEXTROSE 50%-WATER SYRINGE 12.5 GM/25 ML DOSE IV PRN (23:29)
[2017-01-07] MEDS ORDERED: DEXTROSE 40% GEL 15 GM TUBE PO PRN (23:29)
[2017-01-07] MEDS ORDERED: GLUCAGON,HUMAN RECOMB 1 MG INJ IM PRN (23:29)
[2017-01-07] MEDS ORDERED: DEXTROSE 40% GEL 15 GM TUBE X 2 PO PRN (23:29)
[2017-01-07] MEDS ORDERED: DEXTROSE 50%-WATER SYRINGE 25 GM/50 ML DOSE IV PRN (23:29)
[2017-01-08] MEDS: INSULIN LISPRO 100 UNIT/ML 3 ML VIAL SUBCUT PRN ×5 (00:20→23:45)
[2017-01-08] MEDS: PROPOFOL 100 ML IV PRN ×4 (04:49→20:48)
[2017-01-08 05:42] LABS: HEMOGLOBIN 10.2 g/dL (12.0-15.5)
[2017-01-08 05:47] LABS: HEMATOCRIT 31.1 % (36.0-47.0); HGB HCT DIFFERENCE -0.5; MEAN CORPUSCULAR HEMOGLOBIN 27.8 pg (27.0-33.4); MEAN CORPUSCULAR HGB CONC 32.8 g/dL (32.0-36.0); MEAN CORPUSCULAR VOLUME 85 fl (80-97); RED BLOOD COUNT 3.67 10^6/uL (3.72-5.28); RED CELL DISTRIBUTION WIDTH 16.6 % (11.5-14.0); WHITE BLOOD COUNT 6.2 10^3/uL (4.0-10.5)
[2017-01-08 05:53] LABS: ANION GAP 6 (5-19); BLOOD UREA NITROGEN 24 mg/dL (7-20); CALCIUM 9.1 mg/dL (8.4-10.2); CARBON DIOXIDE 26 mmol/L (22-30); CHLORIDE 104 mmol/L (98-107); GLUCOSE 179 mg/dL (75-110)
[2017-01-08 06:02] LABS: BAND NEUTROPHILS % (MANUAL) 1 % (3-5); BASOPHILS % (MANUAL) 2 % (0-2); EOSINOPHILS % (MANUAL) 4 % (0-6); LYMPHOCYTES % (MANUAL) 14 % (13-45); TOTAL CELLS COUNTED 100
[2017-01-08 06:04] LABS: ANISOCYTOSIS 1+; POIKILOCYTOSIS SLIGHT; POLYCHROMASIA SLIGHT; TARGET CELLS SLIGHT; TEAR DROP CELLS SLIGHT; TOXIC VACUOLATION PRESENT
[2017-01-08] MEDS: CALCIUM ACETATE 667 MG CAPSULE PO SCH ×3 (07:41→17:22)
[2017-01-08] MEDS: FLUTICASONE NASAL SPRAY 50 MCG/SPRY 120 SPRAY/16 GM NAREB SCH ×2 (09:30→21:59)
[2017-01-08] MEDS: LACTOBACILLUS ACIDOPHILUS 250 MG TAB PO SCH ×2 (09:30→17:22)
[2017-01-08] MEDS: LANSOPRAZOLE 15 MG TAB.RAP.DR PO SCH (09:30)
[2017-01-08] MEDS: FUROSEMIDE 40 MG TABLET PO SCH ×2 (09:31→17:22)
[2017-01-08] MEDS: SITAGLIPTIN PHOSPHATE 25 MG TABLET PO SCH (09:32)
[2017-01-08] MEDS: TIMOLOL MALEATE 0.5% OPH SOLN 5 ML OU SCH ×2 (09:33→21:59)
[2017-01-08] MEDS: IMIPENEM/CILASTATIN SODIUM 500 MG in NORMAL SALINE 100 ML IV SCH ×2 (09:34→22:00)
[2017-01-08] MEDS: CARVEDILOL 12.5 MG TABLET PO SCH ×2 (09:34→22:01)
[2017-01-08] MEDS: BUDESONIDE/FORMOTEROL 160-4.5 MCG 60 PUFF/6 GM MDI IH SCH ×2 (09:34→22:01)
[2017-01-08] MEDS: FOLIC ACID/VITAMIN B COMP W-C CAPSULE PO SCH (17:21)
[2017-01-08] MEDS: ASPIRIN 81 MG TABLET, CHEWABLE PO SCH (17:22)
[2017-01-08] MEDS: CITALOPRAM HYDROBROMIDE 20 MG TABLET PO SCH (17:22)
[2017-01-08] MEDS: DOCUSATE SODIUM 100 MG CAPSULE PO SCH (17:22)
[2017-01-08] MEDS: CETIRIZINE HCL ORAL SOLN 5 MG/5 ML UDCUP PO SCH (17:23)
--- NOTE | 2017-01-08 18:08 | PDOC PROGRESS REPORT ---
Subjective Progress Note for:: 01/08/17 Subjective:: Patient is sedated on mechanical ventilation Physical Exam Vital Signs: Temp Pulse Resp BP Pulse Ox 99.5 F 87 15 117/49 L 100 01/08/17 16:00 01/08/17 16:00 01/08/17 16:00 01/08/17 16:04 01/08/17 16:45 Intake & Output 01/07/17 01/08/17 01/09/17 06:59 06:59 06:59 Intake Total 1735 1820 120 Output Total 3196 220 2255 Balance -1461 1600 -2135 Weight 71 kg 72.8 kg Eye exam: PRESENT: PERRLA Respiratory exam: PRESENT: rhonchi Cardiovascular exam: PRESENT: +S1, +S2 GI/Abdominal exam: PRESENT: soft Results Laboratory Results: 01/08/17 05:20 01/08/17 05:20 01/08/17 01/08/17 05:20 05:20 WBC 6.2 RBC 3.67 L Hgb 10.2 L Hct 31.1 L MCV 85 MCH 27.8 MCHC 32.8 RDW 16.6 H Plt Count 153 Seg Neutrophils % Not Reportable Lymphocytes % Not Reportable Monocytes % Not Reportable Eosinophils % Not Reportable Basophils % Not Reportable Absolute Neutrophils Not Reportable Absolute Lymphocytes Not Reportable Absolute Monocytes Not Reportable Absolute Eosinophils Not Reportable Absolute Basophils Not Reportable Sodium 136.0 L Potassium 4.0 Chloride 104 Carbon Dioxide 26 Anion Gap 6 BUN 24 H Creatinine 3.90 H Est GFR ( Amer) 13 L Est GFR (Non-Af Amer) 11 L Glucose 179 H Calcium 9.1 01/01/17 01/01/17 01/02/17 23:20 23:20 06:07 Creatine Kinase 23 L 22 L CK-MB (CK-2) 0.36 Troponin I < 0.012 NT-Pro-B Natriuret Pep 01/02/17 01/04/17 06:07 05:45 Creatine Kinase CK-MB (CK-2) 0.47 Troponin I < 0.012 NT-Pro-B Natriuret Pep 94687 H Impressions: Cervical Spine CT 01/01/17 08:43 IMPRESSION: Considerable motion artifact. No fracture identified. If clinical suspicion of fracture persists, repeat imaging when the patient is more stable is recommended. Head CT 01/01/17 08:43 IMPRESSION: No visualized intracranial hemorrhage or fracture. Frontal soft tissue swelling. Significant patient motion limits evaluation of the lower cerebrum, skullbase and posterior fossa. Repeat exam recommended if there is high clinical suspicion. Hip X-Ray 01/01/17 08:43 IMPRESSION: No acute finding. Chest X-Ray 01/07/17 06:00 IMPRESSION: Stable appearance. Assessment & Plan - Diagnosis (1) Urinary tract infection Qualifiers: Urinary tract infection type: site unspecified Hematuria presence: without hematuria Qualified Code(s): N39.0 - Urinary tract infection, site not specified Is this a current diagnosis for this admission?: Yes (2) Metabolic encephalopathy Is this a current diagnosis for this admission?: Yes (3) Severe persistent allergic asthma with acute exacerbation Is this a current diagnosis for this admission?: Yes (4) End-stage renal disease on hemodialysis Is this a current diagnosis for this admission?: Yes (5) Hypoglycemia Is this a current diagnosis for this admission?: Yes (6) Contusion of face Qualifiers: Encounter type: initial encounter Qualified Code(s): S00.83XA - Contusion of other part of head, initial encounter Is this a current diagnosis for this admission?: Yes (7) Septic shock Is this a current diagnosis for this admission?: Yes (8) UTI due to extended-spectrum beta lactamase (ESBL) producing Escherichia coli Is this a current diagnosis for this admission?: Yes (9) Septic shock Is this a current diagnosis for this admission?: Yes - Plan Summary Plan Summary: She has ESBL E. coli, she is on IV antibiotic ertapenem
--- NOTE | 2017-01-08 19:49 | PDOC PROGRESS REPORT ---
Subjective Progress Note for:: 01/08/17 Subjective:: I saw this patient during dialysis is around 1:20 PM today. She continues to be intubated and sedated. She is only requiring an FiO2 of 21% mehreen. She is off any be suppressor. Patient tolerated dialysis without any problems. Physical Exam Vital Signs: Temp Pulse Resp BP Pulse Ox 99.7 F 91 15 113/45 L 97 01/08/17 18:00 01/08/17 18:00 01/08/17 18:00 01/08/17 18:04 01/08/17 18:04 Intake & Output 01/07/17 01/08/17 01/09/17 06:59 06:59 06:59 Intake Total 1735 1820 1391 Output Total 3196 220 2255 Balance -1461 1600 -864 Weight 71 kg 72.8 kg Vitals during dialysis when I saw her: Blood pressure 140/60, heart rate of 91, oxygen saturation of 99%, blood flow rate of 450 mL per minute, dialysate flow rate of 600 mL per minute. Exam: General appearance: Patient is intubated Head exam: PRESENT: normocephalic, her bilateral ecchymosis continues to improve Eye exam: PRESENT: conjunctiva pale, PERRLA. ABSENT: scleral icterus Neck exam: ABSENT: JVD Respiratory exam: PRESENT: Diminished breath sounds. ABSENT: crackles, rales, rhonchi, unlabored, wheezes Cardiovascular exam: PRESENT: Regular rate rhythm -+S1, +S2. ABSENT: diastolic murmur, systolic murmur GI/Abdominal exam: PRESENT: normal bowel sounds, soft. ABSENT: guarding, mass, tenderness Extremities exam: ABSENT: No lower extremity edema, however she continues to have bilateral upper extremity edema Neurological exam: PRESENT: Sedated. Skin exam: PRESENT: dry, warm, Results Laboratory Results: 01/08/17 05:20 01/08/17 05:20 01/08/17 01/08/17 05:20 05:20 WBC 6.2 RBC 3.67 L Hgb 10.2 L Hct 31.1 L MCV 85 MCH 27.8 MCHC 32.8 RDW 16.6 H Plt Count 153 Seg Neutrophils % Not Reportable Lymphocytes % Not Reportable Monocytes % Not Reportable Eosinophils % Not Reportable Basophils % Not Reportable Absolute Neutrophils Not Reportable Absolute Lymphocytes Not Reportable Absolute Monocytes Not Reportable Absolute Eosinophils Not Reportable Absolute Basophils Not Reportable Sodium 136.0 L Potassium 4.0 Chloride 104 Carbon Dioxide 26 Anion Gap 6 BUN 24 H Creatinine 3.90 H Est GFR ( Amer) 13 L Est GFR (Non-Af Amer) 11 L Glucose 179 H Calcium 9.1 01/01/17 01/01/17 01/02/17 23:20 23:20 06:07 Creatine Kinase 23 L 22 L CK-MB (CK-2) 0.36 Troponin I < 0.012 NT-Pro-B Natriuret Pep 01/02/17 01/04/17 06:07 05:45 Creatine Kinase CK-MB (CK-2) 0.47 Troponin I < 0.012 NT-Pro-B Natriuret Pep [id number] H Impressions: Cervical Spine CT 01/01/17 08:43 IMPRESSION: Considerable motion artifact. No fracture identified. If clinical suspicion of fracture persists, repeat imaging when the patient is more stable is recommended. Head CT 01/01/17 08:43 IMPRESSION: No visualized intracranial hemorrhage or fracture. Frontal soft tissue swelling. Significant patient motion limits evaluation of the lower cerebrum, skullbase and posterior fossa. Repeat exam recommended if there is high clinical suspicion. Hip X-Ray 01/01/17 08:43 IMPRESSION: No acute finding. Chest X-Ray 01/07/17 06:00 IMPRESSION: Stable appearance. Assessment & Plan - Diagnosis (1) End-stage renal disease on hemodialysis Is this a current diagnosis for this admission?: YesPlan: We did dialysis today for 3 hours, using the patient's AV fistula, with 3 potassium bath, blood flow rate of or 50 mL per minute, dialysate flow rate of 600 mL per minute, ultrafiltration 2 L, no heparin and no Procrit during dialysis. Patient did not have any complications during dialysis treatment. (2) Septic shock Is this a current diagnosis for this admission?: YesPlan: Currently off vasopressors. (3) UTI (urinary tract infection) Qualifiers: Urinary tract infection type: site unspecified Hematuria presence: with hematuria Qualified Code(s): N39.0 - Urinary tract infection, site not specified Is this a current diagnosis for this admission?: YesPlan: Due to ESBL Escherichia coli. Continue antibiotics per Dr. Richardson. (4) Anemia in chronic kidney disease Is this a current diagnosis for this admission?: Yes (5) Metabolic encephalopathy Is this a current diagnosis for this admission?: YesPlan: Due to UTI and sepsis with underlying progressive dementia. (6) Contusion of face Is this a current diagnosis for this admission?: Yes - Time Time with patient: 15-25 minutes
[2017-01-08] MEDS: MIRTAZAPINE 15 MG TABLET PO SCH (22:01)
[2017-01-09] MEDS: INSULIN LISPRO 100 UNIT/ML 3 ML VIAL SUBCUT PRN ×3 (00:01→16:59)
[2017-01-09] MEDS: PROPOFOL 100 ML IV PRN ×4 (01:46→21:13)
[2017-01-09 05:23] LABS: ARTERIAL BLOOD BASE EXCESS 6.7 mmol/L; ARTERIAL BLOOD O2 SATURATION 95.5 % (94-98)
[2017-01-09 05:40] LABS: ANION GAP 8 (5-19); BLOOD UREA NITROGEN 19 mg/dL (7-20); CALCIUM 9.2 mg/dL (8.4-10.2); CARBON DIOXIDE 30 mmol/L (22-30); CHLORIDE 102 mmol/L (98-107); CREATININE RESULT 2.77 mg/dL (0.52-1.25); GLUCOSE 152 mg/dL (75-110); MAGNESIUM 1.8 mg/dL (1.6-2.3); PHOSPHORUS 1.6 mg/dL (2.5-4.5); POTASSIUM 3.4 mmol/L (3.6-5.0); SODIUM 139.6 mmol/L (137-145)
[2017-01-09 05:42] LABS: HEMATOCRIT 31.7 % (36.0-47.0); HEMOGLOBIN 10.6 g/dL (12.0-15.5); HGB HCT DIFFERENCE 0.1; MEAN CORPUSCULAR HGB CONC 33.3 g/dL (32.0-36.0); MEAN CORPUSCULAR VOLUME 84 fl (80-97); RED BLOOD COUNT 3.77 10^6/uL (3.72-5.28); RED CELL DISTRIBUTION WIDTH 16.9 % (11.5-14.0); WHITE BLOOD COUNT 6.3 10^3/uL (4.0-10.5)
[2017-01-09 06:01] LABS: BAND NEUTROPHILS % (MANUAL) 4 % (3-5); BASOPHILS % (MANUAL) 0 % (0-2); EOSINOPHILS % (MANUAL) 4 % (0-6); LYMPHOCYTES % (MANUAL) 25 % (13-45); NUCLEATED RED BLOOD CELLS 1 /100 WBC (0); TOTAL CELLS COUNTED 100
[2017-01-09 06:04] LABS: ANISOCYTOSIS 1+; BURR CELLS SLIGHT; OVALOCYTES SLIGHT; POIKILOCYTOSIS SLIGHT; POLYCHROMASIA SLIGHT; SCHISTOCYTES SLIGHT; TARGET CELLS SLIGHT; TOXIC GRANULATION SLIGHT
[2017-01-09] MEDS: CALCIUM ACETATE 667 MG CAPSULE PO SCH ×3 (08:50→16:50)
[2017-01-09] MEDS: LANSOPRAZOLE 15 MG TAB.RAP.DR PO SCH (08:50)
[2017-01-09] MEDS: FUROSEMIDE 40 MG TABLET PO SCH ×2 (08:50→16:51)
[2017-01-09] MEDS: ACETAMINOPHEN 325 MG TABLET PO PRN (08:51)
[2017-01-09] MEDS: CARVEDILOL 12.5 MG TABLET PO SCH ×2 (08:52→22:52)
[2017-01-09] MEDS: HEPARIN SOD (PORCINE) 5,000 UNIT/ML 1 ML SYRINGE SUBCUT SCH (08:53)
[2017-01-09] MEDS: SITAGLIPTIN PHOSPHATE 25 MG TABLET PO SCH (08:53)
--- NOTE | 2017-01-09 12:31 | PDOC PROGRESS REPORT ---
Subjective Progress Note for:: 01/08/17 Subjective:: sedated intubated Physical Exam Vital Signs: Temp Pulse Resp BP Pulse Ox 98.6 F 84 16 123/47 L 100 01/08/17 08:00 01/08/17 08:00 01/08/17 08:00 01/08/17 08:00 01/08/17 08:00 Intake & Output 01/07/17 01/08/17 01/09/17 06:59 06:59 06:59 Intake Total 1735 1820 Output Total 5496 220 0 Balance -3761 1600 0 Weight 71 kg 72.8 kg General appearance: PRESENT: no acute distress, well-developed, well-nourished Head exam: PRESENT: atraumatic, normocephalic Eye exam: PRESENT: conjunctiva pink, EOMI, PERRLA. ABSENT: scleral icterus Ear exam: PRESENT: normal external ear exam Mouth exam: PRESENT: moist, tongue midline Neck exam: ABSENT: carotid bruit, JVD, lymphadenopathy, thyromegaly Respiratory exam: PRESENT: clear to auscultation kennedi. ABSENT: rales, rhonchi, wheezes Cardiovascular exam: PRESENT: RRR. ABSENT: diastolic murmur, rubs, systolic murmur Pulses: PRESENT: normal dorsalis pedis pul Vascular exam: PRESENT: normal capillary refill GI/Abdominal exam: PRESENT: normal bowel sounds, soft. ABSENT: distended, guarding, mass, organolmegaly, rebound, tenderness Rectal exam: PRESENT: deferred Extremities exam: PRESENT: full ROM. ABSENT: calf tenderness, clubbing, pedal edema Neurological exam: PRESENT: alert, awake, oriented to person, oriented to place , oriented to time, oriented to situation, CN II-XII grossly intact. ABSENT: motor sensory deficit Psychiatric exam: PRESENT: appropriate affect, normal mood. ABSENT: homicidal ideation, suicidal ideation Skin exam: PRESENT: dry, intact, warm. ABSENT: cyanosis, rash Results Laboratory Results: 01/08/17 05:20 01/08/17 05:20 01/08/17 01/08/17 05:20 05:20 WBC 6.2 RBC 3.67 L Hgb 10.2 L Hct 31.1 L MCV 85 MCH 27.8 MCHC 32.8 RDW 16.6 H Plt Count 153 Seg Neutrophils % Not Reportable Lymphocytes % Not Reportable Monocytes % Not Reportable Eosinophils % Not Reportable Basophils % Not Reportable Absolute Neutrophils Not Reportable Absolute Lymphocytes Not Reportable Absolute Monocytes Not Reportable Absolute Eosinophils Not Reportable Absolute Basophils Not Reportable Sodium 136.0 L Potassium 4.0 Chloride 104 Carbon Dioxide 26 Anion Gap 6 BUN 24 H Creatinine 3.90 H Est GFR ( Amer) 13 L Est GFR (Non-Af Amer) 11 L Glucose 179 H Calcium 9.1 01/01/17 01/01/17 01/02/17 23:20 23:20 06:07 Creatine Kinase 23 L 22 L CK-MB (CK-2) 0.36 Troponin I < 0.012 NT-Pro-B Natriuret Pep 01/02/17 01/04/17 06:07 05:45 Creatine Kinase CK-MB (CK-2) 0.47 Troponin I < 0.012 NT-Pro-B Natriuret Pep [id number] H Impressions: Cervical Spine CT 01/01/17 08:43 IMPRESSION: Considerable motion artifact. No fracture identified. If clinical suspicion of fracture persists, repeat imaging when the patient is more stable is recommended. Head CT 01/01/17 08:43 IMPRESSION: No visualized intracranial hemorrhage or fracture. Frontal soft tissue swelling. Significant patient motion limits evaluation of the lower cerebrum, skullbase and posterior fossa. Repeat exam recommended if there is high clinical suspicion. Hip X-Ray 01/01/17 08:43 IMPRESSION: No acute finding. Chest X-Ray 01/07/17 06:00 IMPRESSION: Stable appearance. Assessment & Plan - Diagnosis (1) Dementia Is this a current diagnosis for this admission?: Yes (2) End-stage renal disease on hemodialysis Is this a current diagnosis for this admission?: Yes (3) Respiratory failure Qualifiers: Chronicity: acute Is this a current diagnosis for this admission?: YesPlan: mental status ability to protect airway as well as prolonged strength insufficient minute ventilation, respiratory rate, FiO2 and airway pressures would otherwise successful extubation successful (4) Septic shock Is this a current diagnosis for this admission?: Yes - Time Critical Time spent with patient: 35 or more minutes
--- NOTE | 2017-01-09 12:34 | PDOC PROGRESS REPORT ---
Subjective Progress Note for:: 01/09/17 Subjective:: Intubated and sedated Physical Exam Vital Signs: Temp Pulse Resp BP Pulse Ox 98.1 F 96 15 107/48 L 98 01/09/17 08:00 01/09/17 08:00 01/09/17 08:00 01/09/17 09:04 01/09/17 09:15 Intake & Output 01/08/17 01/09/17 01/10/17 06:59 06:59 06:59 Intake Total 1820 2390 Output Total 220 2305 10 Balance 1600 85 -10 Weight 72.8 kg 70 kg General appearance: PRESENT: no acute distress, well-developed, well-nourished Head exam: PRESENT: atraumatic, normocephalic Eye exam: PRESENT: conjunctiva pale. ABSENT: scleral icterus Mouth exam: PRESENT: tongue midline, other - Endotracheal tube in place Neck exam: ABSENT: carotid bruit, JVD, lymphadenopathy, thyromegaly Respiratory exam: PRESENT: rales, rhonchi, symmetrical, unlabored Cardiovascular exam: PRESENT: RRR. ABSENT: diastolic murmur, rubs, systolic murmur Pulses: PRESENT: normal radial pulses GI/Abdominal exam: PRESENT: normal bowel sounds, soft. ABSENT: distended, guarding, mass, organolmegaly, rebound, tenderness Rectal exam: PRESENT: deferred Gentrourinary exam: PRESENT: indwelling catheter Neurological exam: ABSENT: motor sensory deficit Psychiatric exam: ABSENT: homicidal ideation, suicidal ideation Skin exam: PRESENT: dry, intact, warm. ABSENT: cyanosis Results Laboratory Results: 01/09/17 05:05 01/09/17 05:05 01/09/17 01/09/17 01/09/17 05:05 05:05 05:05 WBC 6.3 RBC 3.77 Hgb 10.6 L Hct 31.7 L MCV 84 MCH 28.0 MCHC 33.3 RDW 16.9 H Plt Count 157 Seg Neutrophils % Not Reportable Lymphocytes % Not Reportable Monocytes % Not Reportable Eosinophils % Not Reportable Basophils % Not Reportable Absolute Neutrophils Not Reportable Absolute Lymphocytes Not Reportable Absolute Monocytes Not Reportable Absolute Eosinophils Not Reportable Absolute Basophils Not Reportable Carbonic Acid 0.89 L HCO3/H2CO3 Ratio 31:1 ABG pH 7.60 H* ABG pCO2 29.6 L ABG pO2 63.7 L ABG HCO3 28.1 H ABG O2 Saturation 95.5 ABG Base Excess 6.7 FiO2 21% Sodium 139.6 Potassium 3.4 L Chloride 102 Carbon Dioxide 30 Anion Gap 8 BUN 19 Creatinine 2.77 H Est GFR ( Amer) 20 L Est GFR (Non-Af Amer) 16 L Glucose 152 H Calcium 9.2 Phosphorus 1.6 L Magnesium 1.8 01/01/17 01/01/17 01/02/17 23:20 23:20 06:07 Creatine Kinase 23 L 22 L CK-MB (CK-2) 0.36 Troponin I < 0.012 NT-Pro-B Natriuret Pep 01/02/17 01/04/17 06:07 05:45 Creatine Kinase CK-MB (CK-2) 0.47 Troponin I < 0.012 NT-Pro-B Natriuret Pep [id number] H Impressions: Cervical Spine CT 01/01/17 08:43 IMPRESSION: Considerable motion artifact. No fracture identified. If clinical suspicion of fracture persists, repeat imaging when the patient is more stable is recommended. Head CT 01/01/17 08:43 IMPRESSION: No visualized intracranial hemorrhage or fracture. Frontal soft tissue swelling. Significant patient motion limits evaluation of the lower cerebrum, skullbase and posterior fossa. Repeat exam recommended if there is high clinical suspicion. Hip X-Ray 01/01/17 08:43 IMPRESSION: No acute finding. Chest X-Ray 01/09/17 06:00 IMPRESSION: LEFT BASILAR DENSITY WITH PLEURAL EFFUSION. NO CHANGE IN APPEARANCE OF THE CHEST. Assessment & Plan - Diagnosis (1) Dementia Is this a current diagnosis for this admission?: Yes (2) End-stage renal disease on hemodialysis Is this a current diagnosis for this admission?: Yes (3) Respiratory failure Qualifiers: Chronicity: acute Is this a current diagnosis for this admission?: Yes (4) Septic shock Is this a current diagnosis for this admission?: Yes - Time Time Spent with patient: 25-34 minutes
[2017-01-09] MEDS: IMIPENEM/CILASTATIN SODIUM 500 MG in NORMAL SALINE 100 ML IV SCH ×2 (15:22→22:49)
[2017-01-09] MEDS: TIMOLOL MALEATE 0.5% OPH SOLN 5 ML OU SCH ×2 (15:23→22:52)
[2017-01-09] MEDS: LACTOBACILLUS ACIDOPHILUS 250 MG TAB PO SCH ×2 (15:24→17:01)
[2017-01-09] MEDS: BUDESONIDE/FORMOTEROL 160-4.5 MCG 60 PUFF/6 GM MDI IH SCH ×2 (15:24→22:52)
[2017-01-09] MEDS: FLUTICASONE NASAL SPRAY 50 MCG/SPRY 120 SPRAY/16 GM NAREB SCH ×2 (15:24→22:50)
[2017-01-09] MEDS: ASPIRIN 81 MG TABLET, CHEWABLE PO SCH (16:50)
[2017-01-09] MEDS: CITALOPRAM HYDROBROMIDE 20 MG TABLET PO SCH (16:51)
[2017-01-09] MEDS: CETIRIZINE HCL ORAL SOLN 5 MG/5 ML UDCUP PO SCH (17:01)
[2017-01-09] MEDS: DOCUSATE SODIUM 100 MG CAPSULE PO SCH (17:01)
[2017-01-09] MEDS: FOLIC ACID/VITAMIN B COMP W-C CAPSULE PO SCH (17:01)
--- NOTE | 2017-01-09 20:48 | PDOC PROGRESS REPORT ---
Subjective Progress Note for:: 01/09/17 Subjective:: Patient seen by the bedside, she is sedated on mechanical ventilation Physical Exam Vital Signs: Temp Pulse Resp BP Pulse Ox 99.9 F 88 15 130/51 H 97 01/09/17 19:36 01/09/17 16:00 01/09/17 16:00 01/09/17 17:04 01/09/17 17:15 Intake & Output 01/08/17 01/09/17 01/10/17 06:59 06:59 06:59 Intake Total 1820 2390 838 Output Total 220 2305 455 Balance 1600 85 383 Weight 72.8 kg 70 kg General appearance: PRESENT: no acute distress Eye exam: PRESENT: PERRLA Respiratory exam: PRESENT: rhonchi Cardiovascular exam: PRESENT: +S1, +S2 GI/Abdominal exam: PRESENT: soft Results Laboratory Results: 01/09/17 05:05 01/09/17 05:05 01/09/17 01/09/17 01/09/17 05:05 05:05 05:05 WBC 6.3 RBC 3.77 Hgb 10.6 L Hct 31.7 L MCV 84 MCH 28.0 MCHC 33.3 RDW 16.9 H Plt Count 157 Seg Neutrophils % Not Reportable Lymphocytes % Not Reportable Monocytes % Not Reportable Eosinophils % Not Reportable Basophils % Not Reportable Absolute Neutrophils Not Reportable Absolute Lymphocytes Not Reportable Absolute Monocytes Not Reportable Absolute Eosinophils Not Reportable Absolute Basophils Not Reportable Carbonic Acid 0.89 L HCO3/H2CO3 Ratio 31:1 ABG pH 7.60 H* ABG pCO2 29.6 L ABG pO2 63.7 L ABG HCO3 28.1 H ABG O2 Saturation 95.5 ABG Base Excess 6.7 FiO2 21% Sodium 139.6 Potassium 3.4 L Chloride 102 Carbon Dioxide 30 Anion Gap 8 BUN 19 Creatinine 2.77 H Est GFR ( Amer) 20 L Est GFR (Non-Af Amer) 16 L Glucose 152 H Calcium 9.2 Phosphorus 1.6 L Magnesium 1.8 01/01/17 01/01/17 01/02/17 23:20 23:20 06:07 Creatine Kinase 23 L 22 L CK-MB (CK-2) 0.36 Troponin I < 0.012 NT-Pro-B Natriuret Pep 01/02/17 01/04/17 06:07 05:45 Creatine Kinase CK-MB (CK-2) 0.47 Troponin I < 0.012 NT-Pro-B Natriuret Pep 35533 H Impressions: Cervical Spine CT 01/01/17 08:43 IMPRESSION: Considerable motion artifact. No fracture identified. If clinical suspicion of fracture persists, repeat imaging when the patient is more stable is recommended. Head CT 01/01/17 08:43 IMPRESSION: No visualized intracranial hemorrhage or fracture. Frontal soft tissue swelling. Significant patient motion limits evaluation of the lower cerebrum, skullbase and posterior fossa. Repeat exam recommended if there is high clinical suspicion. Hip X-Ray 01/01/17 08:43 IMPRESSION: No acute finding. Chest X-Ray 01/09/17 06:00 IMPRESSION: LEFT BASILAR DENSITY WITH PLEURAL EFFUSION. NO CHANGE IN APPEARANCE OF THE CHEST. Assessment & Plan - Diagnosis (1) Urinary tract infection Qualifiers: Urinary tract infection type: site unspecified Hematuria presence: without hematuria Qualified Code(s): N39.0 - Urinary tract infection, site not specified Is this a current diagnosis for this admission?: Yes (2) Metabolic encephalopathy Is this a current diagnosis for this admission?: Yes (3) Severe persistent allergic asthma with acute exacerbation Is this a current diagnosis for this admission?: Yes (4) End-stage renal disease on hemodialysis Is this a current diagnosis for this admission?: Yes (5) Hypoglycemia Is this a current diagnosis for this admission?: Yes (6) Contusion of face Qualifiers: Encounter type: initial encounter Qualified Code(s): S00.83XA - Contusion of other part of head, initial encounter Is this a current diagnosis for this admission?: Yes (7) Septic shock Is this a current diagnosis for this admission?: Yes (8) UTI due to extended-spectrum beta lactamase (ESBL) producing Escherichia coli Is this a current diagnosis for this admission?: Yes (9) Septic shock Is this a current diagnosis for this admission?: Yes
[2017-01-09] MEDS: MIRTAZAPINE 15 MG TABLET PO SCH (22:52)
[2017-01-10] MEDS: INSULIN LISPRO 100 UNIT/ML 3 ML VIAL SUBCUT PRN ×5 (00:09→22:36)
[2017-01-10] MEDS: PROPOFOL 100 ML IV PRN (05:36)
[2017-01-10 05:43] LABS: ARTERIAL BLOOD BASE EXCESS 3.8 mmol/L; ARTERIAL BLOOD O2 SATURATION 95.4 % (94-98)
[2017-01-10 05:54] LABS: ABSOLUTE BASOPHILS # (AUTO) 0.1 10^3/uL (0.0-0.2); ABSOLUTE EOSINOPHILS # (AUTO) 0.3 10^3/uL (0.0-0.6); ABSOLUTE MONOCYTES (AUTO) 1.3 10^3/uL (0.1-1.4); ABSOLUTE NEUT (AUTO) 6.1 10^3/uL (1.7-8.2); BASOPHILS % (AUTO) 1.5 % (0-2); HEMATOCRIT 31.5 % (36.0-47.0); HEMOGLOBIN 10.4 g/dL (12.0-15.5); HGB HCT DIFFERENCE -0.3; LYMPHOCYTES % (AUTO) 11.1 % (13-45); MEAN CORPUSCULAR HEMOGLOBIN 28.1 pg (27.0-33.4); MEAN CORPUSCULAR HGB CONC 33.2 g/dL (32.0-36.0); MEAN CORPUSCULAR VOLUME 85 fl (80-97); MONOCYTES % (AUTO) 14.9 % (3-13); RED BLOOD COUNT 3.72 10^6/uL (3.72-5.28); RED CELL DISTRIBUTION WIDTH 16.6 % (11.5-14.0); SEGMENTED NEUTROPHILS % (AUTO) 69.5 % (42-78); WHITE BLOOD COUNT 8.8 10^3/uL (4.0-10.5)
[2017-01-10 06:09] LABS: ALANINE AMINOTRANSFERASE 24 U/L (9-52); ALBUMIN 2.1 g/dL (3.5-5.0); ALKALINE PHOSPHATASE 178 U/L (38-126); ANION GAP 8 (5-19); ASPARTATE AMINO TRANSFERASE 23 U/L (14-36); BILIRUBIN,DIRECT 0.4 mg/dL (0.0-0.4); BILIRUBIN,TOTAL 0.6 mg/dL (0.2-1.3); BLOOD UREA NITROGEN 30 mg/dL (7-20); CALCIUM 9.3 mg/dL (8.4-10.2); CARBON DIOXIDE 28 mmol/L (22-30); CHLORIDE 103 mmol/L (98-107); CREATININE RESULT 3.73 mg/dL (0.52-1.25); GLUCOSE 195 mg/dL (75-110); MAGNESIUM 1.9 mg/dL (1.6-2.3); POTASSIUM 3.4 mmol/L (3.6-5.0); TOTAL PROTEIN 5.4 g/dL (6.3-8.2); TRIGLYCERIDES 126 mg/dL (<150)
[2017-01-10] MEDS: LANSOPRAZOLE 15 MG TAB.RAP.DR PO SCH (10:02)
[2017-01-10] MEDS: SITAGLIPTIN PHOSPHATE 25 MG TABLET PO SCH (10:02)
[2017-01-10] MEDS: IMIPENEM/CILASTATIN SODIUM 500 MG in NORMAL SALINE 100 ML IV SCH ×2 (10:02→22:30)
[2017-01-10] MEDS: CALCIUM ACETATE 667 MG CAPSULE PO SCH ×3 (10:02→17:58)
[2017-01-10] MEDS: LACTOBACILLUS ACIDOPHILUS 250 MG TAB PO SCH ×2 (10:02→18:04)
[2017-01-10] MEDS: FUROSEMIDE 40 MG TABLET PO SCH ×2 (10:02→17:59)
[2017-01-10] MEDS: FLUTICASONE NASAL SPRAY 50 MCG/SPRY 120 SPRAY/16 GM NAREB SCH ×2 (10:04→22:31)
[2017-01-10] MEDS: TIMOLOL MALEATE 0.5% OPH SOLN 5 ML OU SCH ×2 (10:04→22:30)
[2017-01-10] MEDS: BUDESONIDE/FORMOTEROL 160-4.5 MCG 60 PUFF/6 GM MDI IH SCH ×2 (10:04→22:31)
[2017-01-10] MEDS: CARVEDILOL 12.5 MG TABLET PO SCH ×2 (10:36→22:31)
[2017-01-10 10:55] LABS: ARTERIAL BLOOD BASE EXCESS 3.8 mmol/L; ARTERIAL BLOOD O2 SATURATION 95.2 % (94-98)
--- NOTE | 2017-01-10 14:20 | PDOC PROGRESS REPORT ---
Subjective Progress Note for:: 01/10/17 Subjective:: Patient is still intubated and sedated. That the prevent drip is currently being decreased so she seems to be waking up just a little bit. I saw the patient about this afternoon on dialysis. We were having a little bit of a problem with her fistula but our dialysis nurse is able to fix it so far. She is not on pressors and her blood pressure seems to be holding on within acceptable limits. Physical Exam Vital Signs: Temp Pulse Resp BP Pulse Ox 98.4 F 87 16 108/43 L 95 01/10/17 12:00 01/10/17 12:00 01/10/17 12:00 01/10/17 12:00 01/10/17 12:00 Intake & Output 01/09/17 01/10/17 01/11/17 06:59 06:59 06:59 Intake Total 2390 2116 90 Output Total 2805 710 25 Balance -415 1406 65 Weight 70 kg 71 kg Vital signs during dialysis while I was seeing her: Blood pressure 114/53, heart rate 87, oxygen saturation 96% with FiO2 of 21% on mechanical ventilator, blood flow rate of 400 mL per minute, dialysate flow rate of 600 mL per minute. Exam: General appearance: PRESENT: Patient intubated, she seems to have some we may saying and earlier by dialysis nurse said that her eyes were open but not when I was seeing her Head exam: PRESENT: atraumatic, normocephalic Eye exam: PRESENT: conjunctiva pale, PERRLA. ABSENT: scleral icterus Neck exam: ABSENT: JVD Respiratory exam: PRESENT: Diminished breath sounds. ABSENT: crackles, rales, rhonchi, unlabored, wheezes Cardiovascular exam: PRESENT: Regular rate rhythm -+S1, +S2. ABSENT: diastolic murmur, systolic murmur GI/Abdominal exam: PRESENT: normal bowel sounds, soft. ABSENT: guarding, mass, tenderness Extremities exam: ABSENT: No edema on bilateral lower extremities; continues to have bilateral upper extremity edema. Neurological exam: PRESENT: alert, awake, oriented to person, place and time. Skin exam: PRESENT: dry, warm, Results Laboratory Results: 01/10/17 05:20 01/10/17 05:20 01/10/17 01/10/17 01/10/17 05:20 05:20 05:20 WBC 8.8 RBC 3.72 Hgb 10.4 L Hct 31.5 L MCV 85 MCH 28.1 MCHC 33.2 RDW 16.6 H Plt Count 186 Seg Neutrophils % 69.5 Lymphocytes % 11.1 L Monocytes % 14.9 H Eosinophils % 3.0 Basophils % 1.5 Absolute Neutrophils 6.1 Absolute Lymphocytes 1.0 Absolute Monocytes 1.3 Absolute Eosinophils 0.3 Absolute Basophils 0.1 Carbonic Acid 0.78 L HCO3/H2CO3 Ratio 31:1 ABG pH 7.60 H* ABG pCO2 25.9 L ABG pO2 62.4 L ABG HCO3 24.7 ABG O2 Saturation 95.4 ABG Base Excess 3.8 FiO2 21% Sodium 139.0 Potassium 3.4 L Chloride 103 Carbon Dioxide 28 Anion Gap 8 BUN 30 H Creatinine 3.73 H Est GFR ( Amer) 14 L Est GFR (Non-Af Amer) 11 L Glucose 195 H Calcium 9.3 Phosphorus 2.0 L Magnesium 1.9 Total Bilirubin 0.6 AST 23 ALT 24 Alkaline Phosphatase 178 H Total Protein 5.4 L Albumin 2.1 L Triglycerides 126 01/10/17 10:40 WBC RBC Hgb Hct MCV MCH MCHC RDW Plt Count Seg Neutrophils % Lymphocytes % Monocytes % Eosinophils % Basophils % Absolute Neutrophils Absolute Lymphocytes Absolute Monocytes Absolute Eosinophils Absolute Basophils Carbonic Acid 0.94 L HCO3/H2CO3 Ratio 27:1 ABG pH 7.54 H ABG pCO2 31.2 L ABG pO2 65.6 L ABG HCO3 26.0 ABG O2 Saturation 95.2 ABG Base Excess 3.8 FiO2 21% Sodium Potassium Chloride Carbon Dioxide Anion Gap BUN Creatinine Est GFR ( Amer) Est GFR (Non-Af Amer) Glucose Calcium Phosphorus Magnesium Total Bilirubin AST ALT Alkaline Phosphatase Total Protein Albumin Triglycerides 01/01/17 01/01/17 01/02/17 23:20 23:20 06:07 Creatine Kinase 23 L 22 L CK-MB (CK-2) 0.36 Troponin I < 0.012 NT-Pro-B Natriuret Pep 01/02/17 01/04/17 06:07 05:45 Creatine Kinase CK-MB (CK-2) 0.47 Troponin I < 0.012 NT-Pro-B Natriuret Pep [id number] H Impressions: Cervical Spine CT 01/01/17 08:43 IMPRESSION: Considerable motion artifact. No fracture identified. If clinical suspicion of fracture persists, repeat imaging when the patient is more stable is recommended. Head CT 01/01/17 08:43 IMPRESSION: No visualized intracranial hemorrhage or fracture. Frontal soft tissue swelling. Significant patient motion limits evaluation of the lower cerebrum, skullbase and posterior fossa. Repeat exam recommended if there is high clinical suspicion. Hip X-Ray 01/01/17 08:43 IMPRESSION: No acute finding. Chest X-Ray 01/10/17 06:00 IMPRESSION: NO CHANGE IN APPEARANCE OF THE CHEST. Assessment & Plan - Diagnosis (1) End-stage renal disease on hemodialysis Is this a current diagnosis for this admission?: YesPlan: We will do dialysis today for [3] hours, using the patient's right upper arm AV fistula, with 3 potassium bath, blood flow rate of 100 mL per minute, dialysate flow rate of [600] mL per minute, ultrafiltration 2 L, [no heparin] and no Procrit during dialysis. Continue to monitor during dialysis treatment today. (2) Septic shock Is this a current diagnosis for this admission?: YesPlan: Currently off vasopressors. (3) UTI (urinary tract infection) Qualifiers: Urinary tract infection type: site unspecified Hematuria presence: with hematuria Qualified Code(s): N39.0 - Urinary tract infection, site not specified Is this a current diagnosis for this admission?: YesPlan: Due to ESBL Escherichia coli. Continue antibiotics per Dr. Richardson. (4) Anemia in chronic kidney disease Is this a current diagnosis for this admission?: Yes (5) Metabolic encephalopathy Is this a current diagnosis for this admission?: YesPlan: Due to UTI and sepsis with underlying progressive dementia. (6) Contusion of face Is this a current diagnosis for this admission?: YesPlan: Resolving. - Time Time with patient: 15-25 minutes
[2017-01-10] MEDS: ASPIRIN 81 MG TABLET, CHEWABLE PO SCH (17:58)
[2017-01-10] MEDS: CITALOPRAM HYDROBROMIDE 20 MG TABLET PO SCH (17:59)
[2017-01-10] MEDS: CETIRIZINE HCL ORAL SOLN 5 MG/5 ML UDCUP PO SCH (18:00)
[2017-01-10] MEDS: FOLIC ACID/VITAMIN B COMP W-C CAPSULE PO SCH (18:04)
[2017-01-10] MEDS: DOCUSATE SODIUM 100 MG CAPSULE PO SCH (18:04)
[2017-01-10] MEDS: MIRTAZAPINE 15 MG TABLET PO SCH (22:31)
[2017-01-11 06:08] LABS: ARTERIAL BLOOD BASE EXCESS 5.5 mmol/L
[2017-01-11 06:18] LABS: ABSOLUTE BASOPHILS # (AUTO) 0.1 10^3/uL (0.0-0.2); ABSOLUTE EOSINOPHILS # (AUTO) 0.3 10^3/uL (0.0-0.6); ABSOLUTE LYMPHOCYTES (AUTO) 0.9 10^3/uL (0.5-4.7); ABSOLUTE NEUT (AUTO) 7.4 10^3/uL (1.7-8.2); EOSINOPHILS % (AUTO) 2.7 % (0-6); LYMPHOCYTES % (AUTO) 9.4 % (13-45); MEAN CORPUSCULAR HEMOGLOBIN 28.1 pg (27.0-33.4); MEAN CORPUSCULAR HGB CONC 33.3 g/dL (32.0-36.0); MEAN CORPUSCULAR VOLUME 85 fl (80-97); MONOCYTES % (AUTO) 10.3 % (3-13); RED BLOOD COUNT 3.55 10^6/uL (3.72-5.28); RED CELL DISTRIBUTION WIDTH 16.2 % (11.5-14.0); SEGMENTED NEUTROPHILS % (AUTO) 76.6 % (42-78); WHITE BLOOD COUNT 9.7 10^3/uL (4.0-10.5)
[2017-01-11 06:25] LABS: ANION GAP 10 (5-19); BLOOD UREA NITROGEN 22 mg/dL (7-20); CALCIUM 8.5 mg/dL (8.4-10.2); CARBON DIOXIDE 28 mmol/L (22-30); CHLORIDE 102 mmol/L (98-107); CREATININE RESULT 2.55 mg/dL (0.52-1.25); GLUCOSE 146 mg/dL (75-110); MAGNESIUM 1.7 mg/dL (1.6-2.3); SODIUM 140.4 mmol/L (137-145)
[2017-01-11] MEDS: INSULIN LISPRO 100 UNIT/ML 3 ML VIAL SUBCUT PRN ×3 (06:33→17:37)
[2017-01-11] MEDS: CALCIUM ACETATE 667 MG CAPSULE PO SCH ×3 (08:10→17:35)
[2017-01-11] MEDS: BUDESONIDE/FORMOTEROL 160-4.5 MCG 60 PUFF/6 GM MDI IH SCH ×2 (09:57→21:45)
[2017-01-11] MEDS: FLUTICASONE NASAL SPRAY 50 MCG/SPRY 120 SPRAY/16 GM NAREB SCH ×2 (10:03→21:45)
[2017-01-11] MEDS: TIMOLOL MALEATE 0.5% OPH SOLN 5 ML OU SCH ×2 (10:33→21:44)
[2017-01-11] MEDS: LACTOBACILLUS ACIDOPHILUS 250 MG TAB PO SCH ×2 (10:33→17:35)
[2017-01-11] MEDS: FUROSEMIDE 40 MG TABLET PO SCH ×2 (10:33→17:36)
[2017-01-11] MEDS: LANSOPRAZOLE 15 MG TAB.RAP.DR PO SCH (10:33)
[2017-01-11] MEDS: CARVEDILOL 12.5 MG TABLET PO SCH ×2 (10:34→21:44)
[2017-01-11] MEDS: IMIPENEM/CILASTATIN SODIUM 500 MG in NORMAL SALINE 100 ML IV SCH ×2 (10:34→21:45)
[2017-01-11] MEDS: SITAGLIPTIN PHOSPHATE 25 MG TABLET PO SCH (10:34)
--- NOTE | 2017-01-11 14:08 | PDOC PROGRESS REPORT ---
Subjective Progress Note for:: 01/10/17 Subjective:: Patient seen by the bedside, she is sedated on mechanical ventilation Physical Exam Vital Signs: Temp Pulse Resp BP Pulse Ox 99.0 F 89 7 L 109/44 L 99 01/11/17 08:00 01/11/17 08:00 01/11/17 10:15 01/11/17 09:32 01/11/17 12:00 Intake & Output 01/10/17 01/11/17 01/12/17 06:59 06:59 06:59 Intake Total 2116 1385 60 Output Total 710 1780 80 Balance 1406 -395 -20 Weight 71 kg 75.5 kg Eye exam: PRESENT: PERRLA Respiratory exam: PRESENT: crackles Cardiovascular exam: PRESENT: +S1, +S2 Results Laboratory Results: 01/11/17 05:45 01/11/17 05:45 01/11/17 01/11/17 01/11/17 05:45 05:45 05:45 WBC 9.7 RBC 3.55 L Hgb 10.0 L Hct 30.0 L MCV 85 MCH 28.1 MCHC 33.3 RDW 16.2 H Plt Count 172 Seg Neutrophils % 76.6 Lymphocytes % 9.4 L Monocytes % 10.3 Eosinophils % 2.7 Basophils % 1.0 Absolute Neutrophils 7.4 Absolute Lymphocytes 0.9 Absolute Monocytes 1.0 Absolute Eosinophils 0.3 Absolute Basophils 0.1 Carbonic Acid 1.43 H HCO3/H2CO3 Ratio 21:1 ABG pH 7.43 ABG pCO2 47.6 H ABG pO2 64.7 L ABG HCO3 30.7 H ABG O2 Saturation 93.0 L ABG Base Excess 5.5 FiO2 25% Sodium 140.4 Potassium 3.0 L* Chloride 102 Carbon Dioxide 28 Anion Gap 10 BUN 22 H Creatinine 2.55 H Est GFR ( Amer) 21 L Est GFR (Non-Af Amer) 18 L Glucose 146 H Calcium 8.5 Magnesium 1.7 01/01/17 01/01/17 01/02/17 23:20 23:20 06:07 Creatine Kinase 23 L 22 L CK-MB (CK-2) 0.36 Troponin I < 0.012 NT-Pro-B Natriuret Pep 01/02/17 01/04/17 06:07 05:45 Creatine Kinase CK-MB (CK-2) 0.47 Troponin I < 0.012 NT-Pro-B Natriuret Pep [id number] H Impressions: Cervical Spine CT 01/01/17 08:43 IMPRESSION: Considerable motion artifact. No fracture identified. If clinical suspicion of fracture persists, repeat imaging when the patient is more stable is recommended. Head CT 01/01/17 08:43 IMPRESSION: No visualized intracranial hemorrhage or fracture. Frontal soft tissue swelling. Significant patient motion limits evaluation of the lower cerebrum, skullbase and posterior fossa. Repeat exam recommended if there is high clinical suspicion. Hip X-Ray 01/01/17 08:43 IMPRESSION: No acute finding. Chest X-Ray 01/11/17 06:00 IMPRESSION: 1. Support tubes and lines as above. 1. Persistent left lung base opacity. Assessment & Plan - Diagnosis (1) Urinary tract infection Qualifiers: Urinary tract infection type: site unspecified Hematuria presence: without hematuria Qualified Code(s): N39.0 - Urinary tract infection, site not specified Is this a current diagnosis for this admission?: Yes (2) Metabolic encephalopathy Is this a current diagnosis for this admission?: Yes (3) Severe persistent allergic asthma with acute exacerbation Is this a current diagnosis for this admission?: Yes (4) End-stage renal disease on hemodialysis Is this a current diagnosis for this admission?: Yes (5) Hypoglycemia Is this a current diagnosis for this admission?: Yes (6) Contusion of face Qualifiers: Encounter type: initial encounter Qualified Code(s): S00.83XA - Contusion of other part of head, initial encounter Is this a current diagnosis for this admission?: Yes (7) Septic shock Is this a current diagnosis for this admission?: Yes (8) UTI due to extended-spectrum beta lactamase (ESBL) producing Escherichia coli Is this a current diagnosis for this admission?: Yes (9) Septic shock Is this a current diagnosis for this admission?: Yes
--- NOTE | 2017-01-11 16:23 | PDOC PROGRESS REPORT ---
Subjective Progress Note for:: 01/11/17 Subjective:: Patient is awake but still on mechanical ventilation Physical Exam Vital Signs: Temp Pulse Resp BP Pulse Ox 99.0 F 89 15 94/38 L 100 01/11/17 08:00 01/11/17 08:00 01/11/17 14:15 01/11/17 13:33 01/11/17 16:00 Intake & Output 01/10/17 01/11/17 01/12/17 06:59 06:59 06:59 Intake Total 2116 1385 60 Output Total 710 1780 110 Balance 1406 -395 -50 Weight 71 kg 75.5 kg General appearance: PRESENT: no acute distress Eye exam: PRESENT: PERRLA Respiratory exam: PRESENT: rhonchi Cardiovascular exam: PRESENT: +S1 Results Laboratory Results: 01/11/17 05:45 01/11/17 05:45 01/11/17 01/11/17 01/11/17 05:45 05:45 05:45 WBC 9.7 RBC 3.55 L Hgb 10.0 L Hct 30.0 L MCV 85 MCH 28.1 MCHC 33.3 RDW 16.2 H Plt Count 172 Seg Neutrophils % 76.6 Lymphocytes % 9.4 L Monocytes % 10.3 Eosinophils % 2.7 Basophils % 1.0 Absolute Neutrophils 7.4 Absolute Lymphocytes 0.9 Absolute Monocytes 1.0 Absolute Eosinophils 0.3 Absolute Basophils 0.1 Carbonic Acid 1.43 H HCO3/H2CO3 Ratio 21:1 ABG pH 7.43 ABG pCO2 47.6 H ABG pO2 64.7 L ABG HCO3 30.7 H ABG O2 Saturation 93.0 L ABG Base Excess 5.5 FiO2 25% Sodium 140.4 Potassium 3.0 L* Chloride 102 Carbon Dioxide 28 Anion Gap 10 BUN 22 H Creatinine 2.55 H Est GFR ( Amer) 21 L Est GFR (Non-Af Amer) 18 L Glucose 146 H Calcium 8.5 Magnesium 1.7 01/01/17 01/01/17 01/02/17 23:20 23:20 06:07 Creatine Kinase 23 L 22 L CK-MB (CK-2) 0.36 Troponin I < 0.012 NT-Pro-B Natriuret Pep 01/02/17 01/04/17 06:07 05:45 Creatine Kinase CK-MB (CK-2) 0.47 Troponin I < 0.012 NT-Pro-B Natriuret Pep 13725 H Impressions: Cervical Spine CT 01/01/17 08:43 IMPRESSION: Considerable motion artifact. No fracture identified. If clinical suspicion of fracture persists, repeat imaging when the patient is more stable is recommended. Head CT 01/01/17 08:43 IMPRESSION: No visualized intracranial hemorrhage or fracture. Frontal soft tissue swelling. Significant patient motion limits evaluation of the lower cerebrum, skullbase and posterior fossa. Repeat exam recommended if there is high clinical suspicion. Hip X-Ray 01/01/17 08:43 IMPRESSION: No acute finding. Chest X-Ray 01/11/17 06:00 IMPRESSION: 1. Support tubes and lines as above. 1. Persistent left lung base opacity. Assessment & Plan - Diagnosis (1) Urinary tract infection Qualifiers: Urinary tract infection type: site unspecified Hematuria presence: without hematuria Qualified Code(s): N39.0 - Urinary tract infection, site not specified Is this a current diagnosis for this admission?: Yes (2) Metabolic encephalopathy Is this a current diagnosis for this admission?: Yes (3) Severe persistent allergic asthma with acute exacerbation Is this a current diagnosis for this admission?: Yes (4) End-stage renal disease on hemodialysis Is this a current diagnosis for this admission?: Yes (5) Hypoglycemia Is this a current diagnosis for this admission?: Yes (6) Contusion of face Qualifiers: Encounter type: initial encounter Qualified Code(s): S00.83XA - Contusion of other part of head, initial encounter Is this a current diagnosis for this admission?: Yes (7) Septic shock Is this a current diagnosis for this admission?: Yes (8) UTI due to extended-spectrum beta lactamase (ESBL) producing Escherichia coli Is this a current diagnosis for this admission?: Yes (9) Septic shock Is this a current diagnosis for this admission?: Yes
--- NOTE | 2017-01-11 17:11 | PDOC PROGRESS REPORT ---
Subjective Progress Note for:: 01/10/17 Subjective:: Intubated and sedated Physical Exam Vital Signs: Temp Pulse Resp BP Pulse Ox 99.0 F 89 14 111/45 L 100 01/11/17 08:00 01/11/17 08:00 01/11/17 16:45 01/11/17 16:33 01/11/17 16:45 Intake & Output 01/10/17 01/11/17 01/12/17 06:59 06:59 06:59 Intake Total 2116 1385 60 Output Total 710 1780 140 Balance 1406 -395 -80 Weight 71 kg 75.5 kg General appearance: PRESENT: disheveled, obese Head exam: PRESENT: atraumatic, normocephalic Eye exam: PRESENT: conjunctiva pale Mouth exam: PRESENT: dry mucosa, neck supple, other - ET tube Neck exam: ABSENT: carotid bruit, JVD, lymphadenopathy, thyromegaly Respiratory exam: PRESENT: crackles, decreased breath sounds, prolonged expiratory phas, rhonchi, unlabored, other - ET tube Cardiovascular exam: PRESENT: irregular rhythm Pulses: PRESENT: normal radial pulses GI/Abdominal exam: PRESENT: normal bowel sounds, soft. ABSENT: distended, guarding, mass, organolmegaly, rebound, tenderness Rectal exam: PRESENT: deferred Gentrourinary exam: PRESENT: indwelling catheter Skin exam: PRESENT: dry, warm Results Laboratory Results: 01/11/17 05:45 01/11/17 05:45 01/11/17 01/11/17 01/11/17 05:45 05:45 05:45 WBC 9.7 RBC 3.55 L Hgb 10.0 L Hct 30.0 L MCV 85 MCH 28.1 MCHC 33.3 RDW 16.2 H Plt Count 172 Seg Neutrophils % 76.6 Lymphocytes % 9.4 L Monocytes % 10.3 Eosinophils % 2.7 Basophils % 1.0 Absolute Neutrophils 7.4 Absolute Lymphocytes 0.9 Absolute Monocytes 1.0 Absolute Eosinophils 0.3 Absolute Basophils 0.1 Carbonic Acid 1.43 H HCO3/H2CO3 Ratio 21:1 ABG pH 7.43 ABG pCO2 47.6 H ABG pO2 64.7 L ABG HCO3 30.7 H ABG O2 Saturation 93.0 L ABG Base Excess 5.5 FiO2 25% Sodium 140.4 Potassium 3.0 L* Chloride 102 Carbon Dioxide 28 Anion Gap 10 BUN 22 H Creatinine 2.55 H Est GFR ( Amer) 21 L Est GFR (Non-Af Amer) 18 L Glucose 146 H Calcium 8.5 Magnesium 1.7 01/01/17 01/01/17 01/02/17 23:20 23:20 06:07 Creatine Kinase 23 L 22 L CK-MB (CK-2) 0.36 Troponin I < 0.012 NT-Pro-B Natriuret Pep 01/02/17 01/04/17 06:07 05:45 Creatine Kinase CK-MB (CK-2) 0.47 Troponin I < 0.012 NT-Pro-B Natriuret Pep 23857 H Impressions: Cervical Spine CT 01/01/17 08:43 IMPRESSION: Considerable motion artifact. No fracture identified. If clinical suspicion of fracture persists, repeat imaging when the patient is more stable is recommended. Head CT 01/01/17 08:43 IMPRESSION: No visualized intracranial hemorrhage or fracture. Frontal soft tissue swelling. Significant patient motion limits evaluation of the lower cerebrum, skullbase and posterior fossa. Repeat exam recommended if there is high clinical suspicion. Hip X-Ray 01/01/17 08:43 IMPRESSION: No acute finding. Chest X-Ray 01/11/17 06:00 IMPRESSION: 1. Support tubes and lines as above. 1. Persistent left lung base opacity. Assessment & Plan - Diagnosis (1) Dementia Is this a current diagnosis for this admission?: Yes (2) End-stage renal disease on hemodialysis Is this a current diagnosis for this admission?: Yes (3) Respiratory failure Qualifiers: Chronicity: acute Is this a current diagnosis for this admission?: YesPlan: mental status ability to protect airway as well as prolonged strength insufficient minute ventilation, respiratory rate, FiO2 and airway pressures would otherwise successful extubation suggested (4) Septic shock Is this a current diagnosis for this admission?: Yes - Time Critical Time spent with patient: 35 or more minutes - 45 min
--- NOTE | 2017-01-11 17:13 | PDOC PROGRESS REPORT ---
Subjective Progress Note for:: 01/11/17 Subjective:: Intubated and sedated Physical Exam Vital Signs: Temp Pulse Resp BP Pulse Ox 99.0 F 89 15 102/39 L 95 01/11/17 08:00 01/11/17 08:00 01/11/17 08:00 01/11/17 08:00 01/11/17 08:00 Intake & Output 01/10/17 01/11/17 01/12/17 06:59 06:59 06:59 Intake Total 2116 1385 Output Total 564 1780 Balance 1406 -395 Weight 71 kg 75.5 kg General appearance: PRESENT: disheveled Head exam: PRESENT: atraumatic, normocephalic Eye exam: PRESENT: conjunctiva pale Mouth exam: PRESENT: dry mucosa, neck supple Neck exam: ABSENT: carotid bruit, JVD, lymphadenopathy, thyromegaly Respiratory exam: PRESENT: decreased breath sounds, prolonged expiratory phas, rales, rhonchi, symmetrical Cardiovascular exam: PRESENT: irregular rhythm Pulses: PRESENT: normal radial pulses GI/Abdominal exam: PRESENT: normal bowel sounds, soft. ABSENT: distended, guarding, mass, organolmegaly, rebound, tenderness Rectal exam: PRESENT: deferred Gentrourinary exam: PRESENT: indwelling catheter Musculoskeletal exam: PRESENT: normal inspection Skin exam: PRESENT: dry Results Laboratory Results: 01/11/17 05:45 01/11/17 05:45 01/10/17 01/11/17 01/11/17 10:40 05:45 05:45 WBC 9.7 RBC 3.55 L Hgb 10.0 L Hct 30.0 L MCV 85 MCH 28.1 MCHC 33.3 RDW 16.2 H Plt Count 172 Seg Neutrophils % 76.6 Lymphocytes % 9.4 L Monocytes % 10.3 Eosinophils % 2.7 Basophils % 1.0 Absolute Neutrophils 7.4 Absolute Lymphocytes 0.9 Absolute Monocytes 1.0 Absolute Eosinophils 0.3 Absolute Basophils 0.1 Carbonic Acid 0.94 L HCO3/H2CO3 Ratio 27:1 ABG pH 7.54 H ABG pCO2 31.2 L ABG pO2 65.6 L ABG HCO3 26.0 ABG O2 Saturation 95.2 ABG Base Excess 3.8 FiO2 21% Sodium 140.4 Potassium 3.0 L* Chloride 102 Carbon Dioxide 28 Anion Gap 10 BUN 22 H Creatinine 2.55 H Est GFR ( Amer) 21 L Est GFR (Non-Af Amer) 18 L Glucose 146 H Calcium 8.5 Magnesium 1.7 01/11/17 05:45 WBC RBC Hgb Hct MCV MCH MCHC RDW Plt Count Seg Neutrophils % Lymphocytes % Monocytes % Eosinophils % Basophils % Absolute Neutrophils Absolute Lymphocytes Absolute Monocytes Absolute Eosinophils Absolute Basophils Carbonic Acid 1.43 H HCO3/H2CO3 Ratio 21:1 ABG pH 7.43 ABG pCO2 47.6 H ABG pO2 64.7 L ABG HCO3 30.7 H ABG O2 Saturation 93.0 L ABG Base Excess 5.5 FiO2 25% Sodium Potassium Chloride Carbon Dioxide Anion Gap BUN Creatinine Est GFR ( Amer) Est GFR (Non-Af Amer) Glucose Calcium Magnesium 01/01/17 01/01/17 01/02/17 23:20 23:20 06:07 Creatine Kinase 23 L 22 L CK-MB (CK-2) 0.36 Troponin I < 0.012 NT-Pro-B Natriuret Pep 01/02/17 01/04/17 06:07 05:45 Creatine Kinase CK-MB (CK-2) 0.47 Troponin I < 0.012 NT-Pro-B Natriuret Pep [id number] H Impressions: Cervical Spine CT 01/01/17 08:43 IMPRESSION: Considerable motion artifact. No fracture identified. If clinical suspicion of fracture persists, repeat imaging when the patient is more stable is recommended. Head CT 01/01/17 08:43 IMPRESSION: No visualized intracranial hemorrhage or fracture. Frontal soft tissue swelling. Significant patient motion limits evaluation of the lower cerebrum, skullbase and posterior fossa. Repeat exam recommended if there is high clinical suspicion. Hip X-Ray 01/01/17 08:43 IMPRESSION: No acute finding. Chest X-Ray 01/11/17 06:00 IMPRESSION: 1. Support tubes and lines as above. 1. Persistent left lung base opacity. Assessment & Plan - Diagnosis (1) Dementia Is this a current diagnosis for this admission?: Yes (2) End-stage renal disease on hemodialysis Is this a current diagnosis for this admission?: Yes (3) Respiratory failure Qualifiers: Chronicity: acute Is this a current diagnosis for this admission?: YesPlan: mental status ability to protect airway as well as prolonged strength insufficient minute ventilation, respiratory rate, FiO2 and airway pressures would otherwise successful extubation suggested (4) Septic shock Is this a current diagnosis for this admission?: Yes - Time Critical Time spent with patient: 25-34 minutes
[2017-01-11] MEDS ORDERED: POTASSIUM CHLORIDE 20 MEQ/15 ML UDCUP GT ONE (17:30)
[2017-01-11] MEDS: CITALOPRAM HYDROBROMIDE 20 MG TABLET PO SCH (17:35)
[2017-01-11] MEDS: CETIRIZINE HCL ORAL SOLN 5 MG/5 ML UDCUP PO SCH (17:35)
[2017-01-11] MEDS: ASPIRIN 81 MG TABLET, CHEWABLE PO SCH (17:36)
[2017-01-11] MEDS: DOCUSATE SODIUM 100 MG CAPSULE PO SCH (17:37)
[2017-01-11] MEDS: FOLIC ACID/VITAMIN B COMP W-C CAPSULE PO SCH (17:37)
[2017-01-11] MEDS: MIRTAZAPINE 15 MG TABLET PO SCH (21:44)
[2017-01-12] MEDS: INSULIN LISPRO 100 UNIT/ML 3 ML VIAL SUBCUT PRN ×3 (00:17→17:44)
[2017-01-12 06:47] LABS: ARTERIAL BLOOD BASE EXCESS 3.9 mmol/L; ARTERIAL BLOOD O2 SATURATION 96.2 % (94-98)
[2017-01-12 06:50] LABS: ABSOLUTE BASOPHILS # (AUTO) 0.1 10^3/uL (0.0-0.2); ABSOLUTE EOSINOPHILS # (AUTO) 0.2 10^3/uL (0.0-0.6); ABSOLUTE MONOCYTES (AUTO) 1.1 10^3/uL (0.1-1.4); BASOPHILS % (AUTO) 0.8 % (0-2); EOSINOPHILS % (AUTO) 2.1 % (0-6); HEMATOCRIT 27.9 % (36.0-47.0); HEMOGLOBIN 9.3 g/dL (12.0-15.5); LYMPHOCYTES % (AUTO) 10.8 % (13-45); MEAN CORPUSCULAR HEMOGLOBIN 28.2 pg (27.0-33.4); MEAN CORPUSCULAR HGB CONC 33.4 g/dL (32.0-36.0); MEAN CORPUSCULAR VOLUME 84 fl (80-97); MONOCYTES % (AUTO) 11.8 % (3-13); RED BLOOD COUNT 3.31 10^6/uL (3.72-5.28); RED CELL DISTRIBUTION WIDTH 16.2 % (11.5-14.0); SEGMENTED NEUTROPHILS % (AUTO) 74.5 % (42-78); WHITE BLOOD COUNT 9.4 10^3/uL (4.0-10.5)
[2017-01-12 07:11] LABS: ANION GAP 9 (5-19); BLOOD UREA NITROGEN 32 mg/dL (7-20); CALCIUM 9.2 mg/dL (8.4-10.2); CARBON DIOXIDE 27 mmol/L (22-30); CHLORIDE 105 mmol/L (98-107); CREATININE RESULT 3.62 mg/dL (0.52-1.25); GLUCOSE 187 mg/dL (75-110); MAGNESIUM 1.9 mg/dL (1.6-2.3); POTASSIUM 3.6 mmol/L (3.6-5.0); SODIUM 140.7 mmol/L (137-145)
[2017-01-12] MEDS: CALCIUM ACETATE 667 MG CAPSULE PO SCH ×3 (09:05→17:30)
[2017-01-12] MEDS: LANSOPRAZOLE 15 MG TAB.RAP.DR PO SCH (09:20)
[2017-01-12] MEDS: LACTOBACILLUS ACIDOPHILUS 250 MG TAB PO SCH ×2 (09:20→17:30)
[2017-01-12] MEDS: FUROSEMIDE 40 MG TABLET PO SCH ×2 (09:20→17:30)
[2017-01-12] MEDS: CARVEDILOL 12.5 MG TABLET PO SCH (09:20)
[2017-01-12] MEDS: TIMOLOL MALEATE 0.5% OPH SOLN 5 ML OU SCH ×2 (09:21→22:25)
[2017-01-12] MEDS: SITAGLIPTIN PHOSPHATE 25 MG TABLET PO SCH (09:21)
[2017-01-12] MEDS: BUDESONIDE/FORMOTEROL 160-4.5 MCG 60 PUFF/6 GM MDI IH SCH ×2 (09:36→22:23)
[2017-01-12] MEDS: FLUTICASONE NASAL SPRAY 50 MCG/SPRY 120 SPRAY/16 GM NAREB SCH ×2 (10:12→22:23)
[2017-01-12] MEDS: IMIPENEM/CILASTATIN SODIUM 500 MG in NORMAL SALINE 100 ML IV SCH ×2 (10:12→22:25)
[2017-01-12] MEDS: IPRATROPIUM/ALBUTEROL 0.5-2.5 MG/3 ML AMPUL NEB PRN (12:02)
[2017-01-12] MEDS ORDERED: DEXAMETHASONE SOD PHOSPHATE INJ 4 MG/1 ML VIAL ONE (13:03)
[2017-01-12] MEDS ORDERED: RACEPINEPHRINE HCL 2.25% NEB 0.5 ML AMPUL NEB ONE ×2 (13:09→13:35)
[2017-01-12] MEDS ORDERED: BUDESONIDE NEB 0.5 MG/2 ML AMPUL NEB ONE ×2 (13:17→14:15)
[2017-01-12] MEDS ORDERED: LEVALBUTEROL HCL NEB 1.25 MG/3 ML AMPUL NEB ONE (13:18)
[2017-01-12] MEDS ORDERED: PROPOFOL 100 ML IV ONE (13:41)
[2017-01-12] MEDS ORDERED: PROPOFOL 100 ML IV PRN (14:17)
[2017-01-12] MEDS: LEVALBUTEROL HCL NEB 1.25 MG/3 ML AMPUL NEB SCH (15:42)
[2017-01-12] MEDS: CETIRIZINE HCL ORAL SOLN 5 MG/5 ML UDCUP PO SCH (17:30)
[2017-01-12] MEDS: DOCUSATE SODIUM 100 MG CAPSULE PO SCH (17:30)
[2017-01-12] MEDS: CITALOPRAM HYDROBROMIDE 20 MG TABLET PO SCH (17:30)
[2017-01-12] MEDS: FOLIC ACID/VITAMIN B COMP W-C CAPSULE PO SCH (17:30)
[2017-01-12] MEDS: ASPIRIN 81 MG TABLET, CHEWABLE PO SCH (17:30)
--- NOTE | 2017-01-12 17:51 | PDOC PROGRESS REPORT ---
Subjective Progress Note for:: 01/12/17 Subjective:: Patient was extubated today. She failed the swallow screen, on the POA and the patient agreed to be DNR status. She is in ICU, she is scheduled for hemodialysis tomorrow. Overall prognosis is very poor in this patient I discussed the DNR status with the family about a week ago and they stated and indicated they would think about it and the family has agreed today to make her a DNR status. She was extubated off the mechanical ventilation today patient stated she does not want to be reintubated in case she developed respiratory arrest or respiratory failure. Physical Exam Vital Signs: Temp Pulse Resp BP Pulse Ox 99.0 F 96 22 H 177/80 H 100 01/11/17 08:00 01/12/17 15:45 01/12/17 15:45 01/12/17 13:42 01/12/17 15:45 Intake & Output 01/11/17 01/12/17 01/13/17 06:59 06:59 06:59 Intake Total 1385 941 100 Output Total 1780 450 160 Balance -395 491 -60 Weight 75.5 kg 76 kg General appearance: PRESENT: mild distress Eye exam: PRESENT: PERRLA Respiratory exam: PRESENT: crackles Cardiovascular exam: PRESENT: +S1, +S2 GI/Abdominal exam: PRESENT: soft Neurological exam: PRESENT: alert Results Laboratory Results: 01/12/17 06:30 01/12/17 06:30 01/12/17 01/12/17 01/12/17 06:30 06:30 06:30 WBC 9.4 RBC 3.31 L Hgb 9.3 L Hct 27.9 L MCV 84 MCH 28.2 MCHC 33.4 RDW 16.2 H Plt Count 203 Seg Neutrophils % 74.5 Lymphocytes % 10.8 L Monocytes % 11.8 Eosinophils % 2.1 Basophils % 0.8 Absolute Neutrophils 7.0 Absolute Lymphocytes 1.0 Absolute Monocytes 1.1 Absolute Eosinophils 0.2 Absolute Basophils 0.1 Carbonic Acid 1.27 HCO3/H2CO3 Ratio 22:1 ABG pH 7.45 ABG pCO2 42.2 ABG pO2 79.9 L ABG HCO3 28.3 H ABG O2 Saturation 96.2 ABG Base Excess 3.9 FiO2 25% Sodium 140.7 Potassium 3.6 Chloride 105 Carbon Dioxide 27 Anion Gap 9 BUN 32 H Creatinine 3.62 H Est GFR ( Amer) 14 L Est GFR (Non-Af Amer) 12 L Glucose 187 H Calcium 9.2 Magnesium 1.9 01/01/17 01/01/17 01/02/17 23:20 23:20 06:07 Creatine Kinase 23 L 22 L CK-MB (CK-2) 0.36 Troponin I < 0.012 NT-Pro-B Natriuret Pep 01/02/17 01/04/17 06:07 05:45 Creatine Kinase CK-MB (CK-2) 0.47 Troponin I < 0.012 NT-Pro-B Natriuret Pep [id number] H Impressions: Cervical Spine CT 01/01/17 08:43 IMPRESSION: Considerable motion artifact. No fracture identified. If clinical suspicion of fracture persists, repeat imaging when the patient is more stable is recommended. Head CT 01/01/17 08:43 IMPRESSION: No visualized intracranial hemorrhage or fracture. Frontal soft tissue swelling. Significant patient motion limits evaluation of the lower cerebrum, skullbase and posterior fossa. Repeat exam recommended if there is high clinical suspicion. Hip X-Ray 01/01/17 08:43 IMPRESSION: No acute finding. Chest X-Ray 01/11/17 06:00 IMPRESSION: 1. Support tubes and lines as above. 1. Persistent left lung base opacity. Assessment & Plan - Diagnosis (1) Urinary tract infection Qualifiers: Urinary tract infection type: site unspecified Hematuria presence: without hematuria Qualified Code(s): N39.0 - Urinary tract infection, site not specified Is this a current diagnosis for this admission?: Yes (2) Metabolic encephalopathy Is this a current diagnosis for this admission?: Yes (3) Severe persistent allergic asthma with acute exacerbation Is this a current diagnosis for this admission?: Yes (4) End-stage renal disease on hemodialysis Is this a current diagnosis for this admission?: Yes (5) Hypoglycemia Is this a current diagnosis for this admission?: Yes (6) Contusion of face Qualifiers: Encounter type: initial encounter Qualified Code(s): S00.83XA - Contusion of other part of head, initial encounter Is this a current diagnosis for this admission?: Yes (7) Septic shock Is this a current diagnosis for this admission?: Yes (8) UTI due to extended-spectrum beta lactamase (ESBL) producing Escherichia coli Is this a current diagnosis for this admission?: Yes (9) Septic shock Is this a current diagnosis for this admission?: Yes - Plan Summary Plan Summary: Patient DNR status overall prognosis is very poor in this patient
[2017-01-12] MEDS ORDERED: DEXAMETHASONE SOD PHOSPHATE INJ 4 MG/1 ML VIAL IV ONE (18:00)
[2017-01-12] MEDS: BUDESONIDE NEB 0.5 MG/2 ML AMPUL NEB SCH (19:50)
[2017-01-12] MEDS ORDERED: METOPROLOL TARTRATE PF/INJ 5 MG/5 ML SDV IV ONE ×2 (19:52→20:15)
[2017-01-12] MEDS: METOPROLOL TARTRATE PF/INJ 5 MG/5 ML SDV IV SCH (22:24)
[2017-01-12] MEDS: MIRTAZAPINE 15 MG TABLET PO SCH (22:26)
[2017-01-13 06:21] LABS: ABSOLUTE BASOPHILS # (AUTO) 0.1 10^3/uL (0.0-0.2); ABSOLUTE LYMPHOCYTES (AUTO) 1.3 10^3/uL (0.5-4.7); ABSOLUTE MONOCYTES (AUTO) 0.5 10^3/uL (0.1-1.4); ABSOLUTE NEUT (AUTO) 9.7 10^3/uL (1.7-8.2); BASOPHILS % (AUTO) 0.5 % (0-2); EOSINOPHILS % (AUTO) 0.1 % (0-6); HEMATOCRIT 33.4 % (36.0-47.0); HEMOGLOBIN 10.6 g/dL (12.0-15.5); HGB HCT DIFFERENCE -1.6; LYMPHOCYTES % (AUTO) 11.3 % (13-45); MEAN CORPUSCULAR HEMOGLOBIN 27.7 pg (27.0-33.4); MEAN CORPUSCULAR HGB CONC 31.7 g/dL (32.0-36.0); MEAN CORPUSCULAR VOLUME 87 fl (80-97); MONOCYTES % (AUTO) 4.1 % (3-13); RED BLOOD COUNT 3.83 10^6/uL (3.72-5.28); RED CELL DISTRIBUTION WIDTH 16.9 % (11.5-14.0); WHITE BLOOD COUNT 11.6 10^3/uL (4.0-10.5)
[2017-01-13 06:22] LABS: ARTERIAL BLOOD BASE EXCESS -5.2 mmol/L; ARTERIAL BLOOD O2 SATURATION 79.7 % (94-98)
[2017-01-13 06:35] LABS: ALANINE AMINOTRANSFERASE 25 U/L (9-52); ALBUMIN 2.7 g/dL (3.5-5.0); ALKALINE PHOSPHATASE 133 U/L (38-126); ANION GAP 13 (5-19); ASPARTATE AMINO TRANSFERASE 27 U/L (14-36); BILIRUBIN,DIRECT 0.7 mg/dL (0.0-0.4); BILIRUBIN,TOTAL 0.8 mg/dL (0.2-1.3); BLOOD UREA NITROGEN 43 mg/dL (7-20); CALCIUM 9.7 mg/dL (8.4-10.2); CARBON DIOXIDE 26 mmol/L (22-30); CHLORIDE 105 mmol/L (98-107); CREATININE RESULT 4.95 mg/dL (0.52-1.25); GLUCOSE 273 mg/dL (75-110); MAGNESIUM 2.1 mg/dL (1.6-2.3); SODIUM 143.6 mmol/L (137-145); TOTAL PROTEIN 6.9 g/dL (6.3-8.2)
[2017-01-13 06:52] LABS: POTASSIUM 5.1 mmol/L (3.6-5.0)
[2017-01-13] MEDS: BUDESONIDE NEB 0.5 MG/2 ML AMPUL NEB SCH ×2 (07:45→20:56)
[2017-01-13] MEDS: LEVALBUTEROL HCL NEB 1.25 MG/3 ML AMPUL NEB SCH ×3 (07:45→16:13)
[2017-01-13] MEDS: CALCIUM ACETATE 667 MG CAPSULE PO SCH ×3 (08:00→17:43)
[2017-01-13] MEDS: LANSOPRAZOLE 15 MG TAB.RAP.DR PO SCH (10:23)
[2017-01-13] MEDS: SITAGLIPTIN PHOSPHATE 25 MG TABLET PO SCH (10:23)
[2017-01-13] MEDS: BUDESONIDE/FORMOTEROL 160-4.5 MCG 60 PUFF/6 GM MDI IH SCH ×2 (10:23→21:11)
[2017-01-13] MEDS: LACTOBACILLUS ACIDOPHILUS 250 MG TAB PO SCH ×2 (10:23→17:43)
[2017-01-13] MEDS: FUROSEMIDE 40 MG TABLET PO SCH ×2 (10:23→17:43)
[2017-01-13] MEDS: FLUTICASONE NASAL SPRAY 50 MCG/SPRY 120 SPRAY/16 GM NAREB SCH ×2 (10:23→21:14)
[2017-01-13 10:40] LABS: ARTERIAL BLOOD BASE EXCESS 1.5 mmol/L; ARTERIAL BLOOD O2 SATURATION 93.8 % (94-98)
[2017-01-13] MEDS: TIMOLOL MALEATE 0.5% OPH SOLN 5 ML OU SCH ×2 (10:44→21:15)
--- NOTE | 2017-01-13 11:01 | PDOC PROGRESS REPORT ---
Subjective Progress Note for:: 01/12/17 Subjective:: Intubated and much more arousable than in the past Physical Exam Vital Signs: Temp Pulse Resp BP Pulse Ox 99.0 F 86 19 134/64 H 99 01/11/17 08:00 01/12/17 11:22 01/12/17 11:22 01/12/17 11:22 01/12/17 10:09 Intake & Output 01/11/17 01/12/17 01/13/17 06:59 06:59 06:59 Intake Total 1385 941 100 Output Total 1780 450 70 Balance -395 491 30 Weight 75.5 kg 76 kg General appearance: PRESENT: no acute distress, cooperative, disheveled, obese Head exam: PRESENT: atraumatic, normocephalic Eye exam: PRESENT: conjunctiva pale, EOMI Mouth exam: PRESENT: moist, neck supple, tongue midline, other - ET tube in place Neck exam: ABSENT: carotid bruit, JVD, lymphadenopathy, thyromegaly Respiratory exam: PRESENT: decreased breath sounds, prolonged expiratory phas, rhonchi, symmetrical, unlabored, wheezes Cardiovascular exam: PRESENT: irregular rhythm Pulses: PRESENT: normal radial pulses GI/Abdominal exam: PRESENT: normal bowel sounds, soft. ABSENT: distended, guarding, mass, organolmegaly, rebound, tenderness Rectal exam: PRESENT: deferred Gentrourinary exam: PRESENT: indwelling catheter Musculoskeletal exam: PRESENT: normal inspection Neurological exam: PRESENT: awake Skin exam: PRESENT: dry, warm Results Laboratory Results: 01/12/17 06:30 01/12/17 06:30 01/12/17 01/12/17 01/12/17 06:30 06:30 06:30 WBC 9.4 RBC 3.31 L Hgb 9.3 L Hct 27.9 L MCV 84 MCH 28.2 MCHC 33.4 RDW 16.2 H Plt Count 203 Seg Neutrophils % 74.5 Lymphocytes % 10.8 L Monocytes % 11.8 Eosinophils % 2.1 Basophils % 0.8 Absolute Neutrophils 7.0 Absolute Lymphocytes 1.0 Absolute Monocytes 1.1 Absolute Eosinophils 0.2 Absolute Basophils 0.1 Carbonic Acid 1.27 HCO3/H2CO3 Ratio 22:1 ABG pH 7.45 ABG pCO2 42.2 ABG pO2 79.9 L ABG HCO3 28.3 H ABG O2 Saturation 96.2 ABG Base Excess 3.9 FiO2 25% Sodium 140.7 Potassium 3.6 Chloride 105 Carbon Dioxide 27 Anion Gap 9 BUN 32 H Creatinine 3.62 H Est GFR ( Amer) 14 L Est GFR (Non-Af Amer) 12 L Glucose 187 H Calcium 9.2 Magnesium 1.9 01/01/17 01/01/17 01/02/17 23:20 23:20 06:07 Creatine Kinase 23 L 22 L CK-MB (CK-2) 0.36 Troponin I < 0.012 NT-Pro-B Natriuret Pep 01/02/17 01/04/17 06:07 05:45 Creatine Kinase CK-MB (CK-2) 0.47 Troponin I < 0.012 NT-Pro-B Natriuret Pep 50057 H Impressions: Cervical Spine CT 01/01/17 08:43 IMPRESSION: Considerable motion artifact. No fracture identified. If clinical suspicion of fracture persists, repeat imaging when the patient is more stable is recommended. Head CT 01/01/17 08:43 IMPRESSION: No visualized intracranial hemorrhage or fracture. Frontal soft tissue swelling. Significant patient motion limits evaluation of the lower cerebrum, skullbase and posterior fossa. Repeat exam recommended if there is high clinical suspicion. Hip X-Ray 01/01/17 08:43 IMPRESSION: No acute finding. Chest X-Ray 01/11/17 06:00 IMPRESSION: 1. Support tubes and lines as above. 1. Persistent left lung base opacity. Assessment & Plan - Diagnosis (1) Dementia Is this a current diagnosis for this admission?: Yes (2) End-stage renal disease on hemodialysis Is this a current diagnosis for this admission?: Yes (3) Respiratory failure Qualifiers: Chronicity: acute Is this a current diagnosis for this admission?: YesPlan: mental status ability to protect airway minute ventilation, respiratory rate, FiO2 and airway pressures would otherwise successful extubation (4) Septic shock Is this a current diagnosis for this admission?: Yes - Time Critical Time spent with patient: 35 or more minutes - 80 minutes Patient successfully extubated approximately 45 minutes later began to displace stridor given Decadron and racemic epinephrine started to decrease slightly but continued patient was asked if she would be willing to go back on endotracheal tube and mechanical ventilation she declined her family agreed the patient is improving now that she is on BiPAP will continue BiPAP
--- NOTE | 2017-01-13 11:04 | PDOC PROGRESS REPORT ---
Subjective Progress Note for:: 01/13/17 Subjective:: Lethargic Physical Exam Vital Signs: Temp Pulse Resp BP Pulse Ox 94.5 F L 64 16 149/62 H 95 01/13/17 05:34 01/13/17 08:00 01/13/17 08:05 01/13/17 06:34 01/13/17 08:05 Intake & Output 01/12/17 01/13/17 01/14/17 06:59 06:59 06:59 Intake Total 941 405 Output Total 450 420 Balance 491 -15 Weight 76 kg 77.2 kg General appearance: PRESENT: no acute distress, disheveled, obese Head exam: PRESENT: atraumatic, normocephalic Eye exam: PRESENT: conjunctiva pale, EOMI Mouth exam: PRESENT: moist, neck supple Neck exam: ABSENT: carotid bruit, JVD, lymphadenopathy, thyromegaly Respiratory exam: PRESENT: crackles, decreased breath sounds, prolonged expiratory phas, rhonchi, symmetrical, unlabored Cardiovascular exam: PRESENT: irregular rhythm Pulses: PRESENT: normal radial pulses GI/Abdominal exam: PRESENT: normal bowel sounds, soft. ABSENT: distended, guarding, mass, organolmegaly, rebound, tenderness Rectal exam: PRESENT: deferred Gentrourinary exam: PRESENT: indwelling catheter Musculoskeletal exam: PRESENT: normal inspection Neurological exam: PRESENT: awake Skin exam: PRESENT: dry, warm Results Laboratory Results: 01/13/17 06:05 01/13/17 06:05 01/13/17 01/13/17 01/13/17 06:05 06:05 06:05 WBC 11.6 H RBC 3.83 Hgb 10.6 L Hct 33.4 L MCV 87 MCH 27.7 MCHC 31.7 L RDW 16.9 H Plt Count 257 Seg Neutrophils % 84.0 H Lymphocytes % 11.3 L Monocytes % 4.1 Eosinophils % 0.1 Basophils % 0.5 Absolute Neutrophils 9.7 H Absolute Lymphocytes 1.3 Absolute Monocytes 0.5 Absolute Eosinophils 0.0 Absolute Basophils 0.1 Carbonic Acid 2.74 H HCO3/H2CO3 Ratio 9:1 ABG pH 7.08 L* ABG pCO2 91.0 H* ABG pO2 61.1 L ABG HCO3 26.6 H ABG O2 Saturation 79.7 L ABG Base Excess -5.2 FiO2 4L Sodium 143.6 Potassium 5.1 H D Chloride 105 Carbon Dioxide 26 Anion Gap 13 BUN 43 H Creatinine 4.95 H Est GFR ( Amer) 10 L Est GFR (Non-Af Amer) 8 L Glucose 273 H Calcium 9.7 Magnesium 2.1 Total Bilirubin 0.8 AST 27 ALT 25 Alkaline Phosphatase 133 H Total Protein 6.9 Albumin 2.7 L 01/01/17 01/01/17 01/02/17 23:20 23:20 06:07 Creatine Kinase 23 L 22 L CK-MB (CK-2) 0.36 Troponin I < 0.012 NT-Pro-B Natriuret Pep 01/02/17 01/04/17 06:07 05:45 Creatine Kinase CK-MB (CK-2) 0.47 Troponin I < 0.012 NT-Pro-B Natriuret Pep [id number] H Impressions: Cervical Spine CT 01/01/17 08:43 IMPRESSION: Considerable motion artifact. No fracture identified. If clinical suspicion of fracture persists, repeat imaging when the patient is more stable is recommended. Head CT 01/01/17 08:43 IMPRESSION: No visualized intracranial hemorrhage or fracture. Frontal soft tissue swelling. Significant patient motion limits evaluation of the lower cerebrum, skullbase and posterior fossa. Repeat exam recommended if there is high clinical suspicion. Hip X-Ray 01/01/17 08:43 IMPRESSION: No acute finding. Chest X-Ray 01/13/17 06:00 IMPRESSION: Cardiomegaly and mild central vascular congestion. Low lung volumes with small bilateral pleural effusions and bibasilar airspace opacities, may represent atelectasis or pneumonia. Assessment & Plan - Diagnosis (1) Dementia Is this a current diagnosis for this admission?: Yes (2) End-stage renal disease on hemodialysis Is this a current diagnosis for this admission?: Yes (3) Respiratory failure Qualifiers: Chronicity: acute Is this a current diagnosis for this admission?: YesPlan: Patient taken off BiPAP and placed on 4 L subsequently her pH is 7.08 and a PCO2 is 91 she will need trilogy ventilator continuously interrupted only for nutrition (4) Septic shock Is this a current diagnosis for this admission?: Yes - Time Critical Time spent with patient: 35 or more minutes
[2017-01-13] MEDS: METOPROLOL TARTRATE PF/INJ 5 MG/5 ML SDV IV SCH ×2 (11:54→21:15)
--- NOTE | 2017-01-13 15:01 | PDOC PROGRESS REPORT ---
Subjective Progress Note for:: 01/13/17 Subjective:: Patient seen during initiation of dialysis this morning at around 8:20 AM. She was extubated over the weekend and was currently on BiPAP. She is still not very responsive. She is lethargic. Physical Exam Vital Signs: Temp Pulse Resp BP Pulse Ox 94.5 F L 64 18 185/81 H 99 01/13/17 05:34 01/13/17 08:00 01/13/17 11:49 01/13/17 09:53 01/13/17 11:49 Intake & Output 01/12/17 01/13/17 01/14/17 06:59 06:59 06:59 Intake Total 941 405 Output Total 022 259 6487 Balance Weight 76 kg 77.2 kg Vital signs when I saw her this morning during dialysis: Blood pressure 134/63, heart rate of 65, oxygen saturation 96%, blood flow rate of 400 mL per minute, dialysate flow rate of 600 mL per minute. Exam: General appearance: LETHARGIC without verbal response on BiPAP Head exam: PRESENT: atraumatic, normocephalic Eye exam: PRESENT: conjunctiva pale, PERRLA. ABSENT: scleral icterus Neck exam: ABSENT: JVD Respiratory exam: PRESENT: Diminished breath sounds. ABSENT: crackles, rales, rhonchi, unlabored, wheezes Cardiovascular exam: PRESENT: Regular rate rhythm -+S1, +S2. ABSENT: diastolic murmur, systolic murmur GI/Abdominal exam: PRESENT: normal bowel sounds, soft. ABSENT: guarding, mass, tenderness Extremities exam: ABSENT: No edema on lower extremities, decrease mild upper extremity swelling Neurological exam: Lethargic Skin exam: PRESENT: dry, warm, Results Laboratory Results: 01/13/17 06:05 01/13/17 06:05 01/13/17 01/13/17 01/13/17 06:05 06:05 06:05 WBC 11.6 H RBC 3.83 Hgb 10.6 L Hct 33.4 L MCV 87 MCH 27.7 MCHC 31.7 L RDW 16.9 H Plt Count 257 Seg Neutrophils % 84.0 H Lymphocytes % 11.3 L Monocytes % 4.1 Eosinophils % 0.1 Basophils % 0.5 Absolute Neutrophils 9.7 H Absolute Lymphocytes 1.3 Absolute Monocytes 0.5 Absolute Eosinophils 0.0 Absolute Basophils 0.1 Carbonic Acid 2.74 H HCO3/H2CO3 Ratio 9:1 ABG pH 7.08 L* ABG pCO2 91.0 H* ABG pO2 61.1 L ABG HCO3 26.6 H ABG O2 Saturation 79.7 L ABG Base Excess -5.2 FiO2 4L Sodium 143.6 Potassium 5.1 H D Chloride 105 Carbon Dioxide 26 Anion Gap 13 BUN 43 H Creatinine 4.95 H Est GFR ( Amer) 10 L Est GFR (Non-Af Amer) 8 L Glucose 273 H Calcium 9.7 Magnesium 2.1 Total Bilirubin 0.8 AST 27 ALT 25 Alkaline Phosphatase 133 H Total Protein 6.9 Albumin 2.7 L 01/13/17 10:25 WBC RBC Hgb Hct MCV MCH MCHC RDW Plt Count Seg Neutrophils % Lymphocytes % Monocytes % Eosinophils % Basophils % Absolute Neutrophils Absolute Lymphocytes Absolute Monocytes Absolute Eosinophils Absolute Basophils Carbonic Acid 1.71 H HCO3/H2CO3 Ratio 16:1 ABG pH 7.32 L ABG pCO2 56.9 H ABG pO2 75.4 L ABG HCO3 28.7 H ABG O2 Saturation 93.8 L ABG Base Excess 1.5 FiO2 50% Sodium Potassium Chloride Carbon Dioxide Anion Gap BUN Creatinine Est GFR ( Amer) Est GFR (Non-Af Amer) Glucose Calcium Magnesium Total Bilirubin AST ALT Alkaline Phosphatase Total Protein Albumin 01/01/17 01/01/17 01/02/17 23:20 23:20 06:07 Creatine Kinase 23 L 22 L CK-MB (CK-2) 0.36 Troponin I < 0.012 NT-Pro-B Natriuret Pep 01/02/17 01/04/17 06:07 05:45 Creatine Kinase CK-MB (CK-2) 0.47 Troponin I < 0.012 NT-Pro-B Natriuret Pep [id number] H Impressions: Cervical Spine CT 01/01/17 08:43 IMPRESSION: Considerable motion artifact. No fracture identified. If clinical suspicion of fracture persists, repeat imaging when the patient is more stable is recommended. Head CT 01/01/17 08:43 IMPRESSION: No visualized intracranial hemorrhage or fracture. Frontal soft tissue swelling. Significant patient motion limits evaluation of the lower cerebrum, skullbase and posterior fossa. Repeat exam recommended if there is high clinical suspicion. Hip X-Ray 01/01/17 08:43 IMPRESSION: No acute finding. Chest X-Ray 01/13/17 06:00 IMPRESSION: Cardiomegaly and mild central vascular congestion. Low lung volumes with small bilateral pleural effusions and bibasilar airspace opacities, may represent atelectasis or pneumonia. Assessment & Plan - Diagnosis (1) End-stage renal disease on hemodialysis Is this a current diagnosis for this admission?: YesPlan: We dialyzed her today for 3 hours, using the patient's AV fistula, with 2 potassium bath, blood flow rate of 400 mL per minute, dialysate flow rate of 600 mL per minute, ultrafiltration 1 L, no heparin and no no Procrit during dialysis. Patient able to tolerate the procedure. We will continue dialysis support in the hospital. (2) Septic shock Is this a current diagnosis for this admission?: YesPlan: Currently off vasopressors. (3) UTI (urinary tract infection) Qualifiers: Urinary tract infection type: site unspecified Hematuria presence: with hematuria Qualified Code(s): N39.0 - Urinary tract infection, site not specified Is this a current diagnosis for this admission?: YesPlan: Due to ESBL Escherichia coli. Continue antibiotics per Dr. Richardson. (4) Anemia in chronic kidney disease Is this a current diagnosis for this admission?: Yes (5) Metabolic encephalopathy Is this a current diagnosis for this admission?: YesPlan: Due to UTI and sepsis with underlying progressive dementia. (6) Contusion of face Is this a current diagnosis for this admission?: YesPlan: Resolving. - Time Time with patient: 15-25 minutes
[2017-01-13] MEDS: FOLIC ACID/VITAMIN B COMP W-C CAPSULE PO SCH (17:43)
[2017-01-13] MEDS: ASPIRIN 81 MG TABLET, CHEWABLE PO SCH (17:43)
[2017-01-13] MEDS: CITALOPRAM HYDROBROMIDE 20 MG TABLET PO SCH (17:43)
[2017-01-13] MEDS: DOCUSATE SODIUM 100 MG CAPSULE PO SCH (17:43)
[2017-01-13] MEDS: CETIRIZINE HCL ORAL SOLN 5 MG/5 ML UDCUP PO SCH (17:43)
[2017-01-13] MEDS: DEXTROSE 5%-NORMAL SALINE 1,000 ML IV PRN (17:57)
--- NOTE | 2017-01-13 20:18 | PDOC PROGRESS REPORT ---
Subjective Progress Note for:: 01/13/17 Subjective:: Patient condition remains poor she had episode of hypercapnic respiratory failure and she requires BiPAP, she remains a DNR status Physical Exam Vital Signs: Temp Pulse Resp BP Pulse Ox 98.1 F 91 17 123/50 L 100 01/13/17 19:40 01/13/17 16:13 01/13/17 18:34 01/13/17 18:34 01/13/17 18:34 Intake & Output 01/12/17 01/13/17 01/14/17 06:59 06:59 06:59 Intake Total 941 405 208 Output Total 257 212 6552 Balance 906 -32 -435 Weight 76 kg 77.2 kg General appearance: PRESENT: mild distress Eye exam: PRESENT: PERRLA Respiratory exam: PRESENT: crackles Cardiovascular exam: PRESENT: +S1, +S2 Results Laboratory Results: 01/13/17 06:05 01/13/17 06:05 01/13/17 01/13/17 01/13/17 06:05 06:05 06:05 WBC 11.6 H RBC 3.83 Hgb 10.6 L Hct 33.4 L MCV 87 MCH 27.7 MCHC 31.7 L RDW 16.9 H Plt Count 257 Seg Neutrophils % 84.0 H Lymphocytes % 11.3 L Monocytes % 4.1 Eosinophils % 0.1 Basophils % 0.5 Absolute Neutrophils 9.7 H Absolute Lymphocytes 1.3 Absolute Monocytes 0.5 Absolute Eosinophils 0.0 Absolute Basophils 0.1 Carbonic Acid 2.74 H HCO3/H2CO3 Ratio 9:1 ABG pH 7.08 L* ABG pCO2 91.0 H* ABG pO2 61.1 L ABG HCO3 26.6 H ABG O2 Saturation 79.7 L ABG Base Excess -5.2 FiO2 4L Sodium 143.6 Potassium 5.1 H D Chloride 105 Carbon Dioxide 26 Anion Gap 13 BUN 43 H Creatinine 4.95 H Est GFR ( Amer) 10 L Est GFR (Non-Af Amer) 8 L Glucose 273 H Calcium 9.7 Magnesium 2.1 Total Bilirubin 0.8 AST 27 ALT 25 Alkaline Phosphatase 133 H Total Protein 6.9 Albumin 2.7 L 01/13/17 10:25 WBC RBC Hgb Hct MCV MCH MCHC RDW Plt Count Seg Neutrophils % Lymphocytes % Monocytes % Eosinophils % Basophils % Absolute Neutrophils Absolute Lymphocytes Absolute Monocytes Absolute Eosinophils Absolute Basophils Carbonic Acid 1.71 H HCO3/H2CO3 Ratio 16:1 ABG pH 7.32 L ABG pCO2 56.9 H ABG pO2 75.4 L ABG HCO3 28.7 H ABG O2 Saturation 93.8 L ABG Base Excess 1.5 FiO2 50% Sodium Potassium Chloride Carbon Dioxide Anion Gap BUN Creatinine Est GFR ( Amer) Est GFR (Non-Af Amer) Glucose Calcium Magnesium Total Bilirubin AST ALT Alkaline Phosphatase Total Protein Albumin 01/01/17 01/01/17 01/02/17 23:20 23:20 06:07 Creatine Kinase 23 L 22 L CK-MB (CK-2) 0.36 Troponin I < 0.012 NT-Pro-B Natriuret Pep 01/02/17 01/04/17 06:07 05:45 Creatine Kinase CK-MB (CK-2) 0.47 Troponin I < 0.012 NT-Pro-B Natriuret Pep [id number] H Impressions: Cervical Spine CT 01/01/17 08:43 IMPRESSION: Considerable motion artifact. No fracture identified. If clinical suspicion of fracture persists, repeat imaging when the patient is more stable is recommended. Head CT 01/01/17 08:43 IMPRESSION: No visualized intracranial hemorrhage or fracture. Frontal soft tissue swelling. Significant patient motion limits evaluation of the lower cerebrum, skullbase and posterior fossa. Repeat exam recommended if there is high clinical suspicion. Hip X-Ray 01/01/17 08:43 IMPRESSION: No acute finding. Chest X-Ray 01/13/17 06:00 IMPRESSION: Cardiomegaly and mild central vascular congestion. Low lung volumes with small bilateral pleural effusions and bibasilar airspace opacities, may represent atelectasis or pneumonia. Assessment & Plan - Diagnosis (1) Urinary tract infection Qualifiers: Urinary tract infection type: site unspecified Hematuria presence: without hematuria Qualified Code(s): N39.0 - Urinary tract infection, site not specified Is this a current diagnosis for this admission?: Yes (2) Metabolic encephalopathy Is this a current diagnosis for this admission?: Yes (3) Severe persistent allergic asthma with acute exacerbation Is this a current diagnosis for this admission?: Yes (4) End-stage renal disease on hemodialysis Is this a current diagnosis for this admission?: Yes (5) Hypoglycemia Is this a current diagnosis for this admission?: Yes (6) Contusion of face Qualifiers: Encounter type: initial encounter Qualified Code(s): S00.83XA - Contusion of other part of head, initial encounter Is this a current diagnosis for this admission?: Yes (7) Septic shock Is this a current diagnosis for this admission?: Yes (8) UTI due to extended-spectrum beta lactamase (ESBL) producing Escherichia coli Is this a current diagnosis for this admission?: Yes (9) Septic shock Is this a current diagnosis for this admission?: Yes
[2017-01-13] MEDS: MIRTAZAPINE 15 MG TABLET PO SCH (21:11)
[2017-01-14] MEDS: LEVALBUTEROL HCL NEB 1.25 MG/3 ML AMPUL NEB SCH ×3 (00:41→16:01)
[2017-01-14 05:25] LABS: ARTERIAL BLOOD BASE EXCESS 3.5 mmol/L; ARTERIAL BLOOD O2 SATURATION 95.6 % (94-98)
[2017-01-14 05:26] LABS: ABSOLUTE BASOPHILS # (AUTO) 0.1 10^3/uL (0.0-0.2); ABSOLUTE LYMPHOCYTES (AUTO) 0.9 10^3/uL (0.5-4.7); ABSOLUTE MONOCYTES (AUTO) 0.6 10^3/uL (0.1-1.4); ABSOLUTE NEUT (AUTO) 9.1 10^3/uL (1.7-8.2); BASOPHILS % (AUTO) 0.5 % (0-2); EOSINOPHILS % (AUTO) 0.3 % (0-6); HEMATOCRIT 28.2 % (36.0-47.0); HEMOGLOBIN 9.1 g/dL (12.0-15.5); HGB HCT DIFFERENCE -0.9; LYMPHOCYTES % (AUTO) 8.2 % (13-45); MEAN CORPUSCULAR HEMOGLOBIN 27.2 pg (27.0-33.4); MEAN CORPUSCULAR HGB CONC 32.4 g/dL (32.0-36.0); MEAN CORPUSCULAR VOLUME 84 fl (80-97); MONOCYTES % (AUTO) 5.6 % (3-13); RED BLOOD COUNT 3.35 10^6/uL (3.72-5.28); RED CELL DISTRIBUTION WIDTH 16.1 % (11.5-14.0); SEGMENTED NEUTROPHILS % (AUTO) 85.4 % (42-78); WHITE BLOOD COUNT 10.6 10^3/uL (4.0-10.5)
[2017-01-14 05:48] LABS: ANION GAP 14 (5-19); BLOOD UREA NITROGEN 33 mg/dL (7-20); CALCIUM 8.3 mg/dL (8.4-10.2); CARBON DIOXIDE 26 mmol/L (22-30); CHLORIDE 104 mmol/L (98-107); CREATININE RESULT 3.77 mg/dL (0.52-1.25); GLUCOSE 173 mg/dL (75-110); MAGNESIUM 1.7 mg/dL (1.6-2.3); PHOSPHORUS 3.1 mg/dL (2.5-4.5); SODIUM 144.4 mmol/L (137-145)
[2017-01-14 05:53] LABS: POTASSIUM 2.9 mmol/L (3.6-5.0)
[2017-01-14] MEDS: BUDESONIDE NEB 0.5 MG/2 ML AMPUL NEB SCH ×2 (08:05→21:06)
[2017-01-14] MEDS: METOPROLOL TARTRATE PF/INJ 5 MG/5 ML SDV IV SCH ×2 (10:03→21:32)
[2017-01-14] MEDS: TIMOLOL MALEATE 0.5% OPH SOLN 5 ML OU SCH ×2 (10:07→21:31)
[2017-01-14] MEDS: FLUTICASONE NASAL SPRAY 50 MCG/SPRY 120 SPRAY/16 GM NAREB SCH ×2 (10:07→21:31)
[2017-01-14] MEDS: LANSOPRAZOLE 15 MG TAB.RAP.DR PO SCH (10:08)
[2017-01-14] MEDS: SITAGLIPTIN PHOSPHATE 25 MG TABLET PO SCH (10:08)
[2017-01-14] MEDS: LACTOBACILLUS ACIDOPHILUS 250 MG TAB PO SCH ×2 (10:08→17:08)
[2017-01-14] MEDS: FUROSEMIDE 40 MG TABLET PO SCH ×2 (10:08→17:08)
[2017-01-14] MEDS: CALCIUM ACETATE 667 MG CAPSULE PO SCH ×3 (10:08→16:17)
[2017-01-14] MEDS: BUDESONIDE/FORMOTEROL 160-4.5 MCG 60 PUFF/6 GM MDI IH SCH ×2 (10:08→21:32)
[2017-01-14 10:48] LABS: PARTIAL THROMBOPLASTIN TIME 32.9 SEC (23.5-35.8); PROTHROMBIN TIME 14.5 SEC (11.4-15.4)
[2017-01-14] MEDS: POTASSIUM CHLORIDE 20 MEQ/50 ML RTU IV SCH ×2 (14:36→16:14)
--- NOTE | 2017-01-14 16:23 | PDOC PROGRESS REPORT ---
Subjective Progress Note for:: 01/14/17 Subjective:: Patient is more awake today. She is mumbling incomprehensible words while she is wearing her BiPAP machine but she is clearly awake. Blood pressures are acceptable. She does not verbalize complaints. Physical Exam Vital Signs: Temp Pulse Resp BP Pulse Ox 98.6 F 88 16 148/59 H 100 01/14/17 15:52 01/14/17 16:00 01/14/17 16:00 01/14/17 14:00 01/14/17 16:00 Intake & Output 01/13/17 01/14/17 01/15/17 06:59 06:59 06:59 Intake Total 405 441 Output Total 420 1454 45 Balance -15 -1013 -45 Weight 77.2 kg 73 kg Exam: General appearance: [Asleep but arousable currently wearing her BiPAP] Head exam: [PRESENT: atraumatic, normocephalic] Eye exam: [PRESENT: conjunctiva pale, PERRLA. ABSENT: scleral icterus] Neck exam: [ABSENT: JVD] Respiratory exam: [PRESENT: Diminished breath sounds. ABSENT: crackles, rales, rhonchi, unlabored, wheezes] Cardiovascular exam: [PRESENT: Regular rate rhythm -+S1, +S2. ABSENT: diastolic murmur, systolic murmur] GI/Abdominal exam: [PRESENT: normal bowel sounds, soft. ABSENT: guarding, mass , tenderness] Extremities exam: [ABSENT: No edema on lower extremities and an improvement upper extremity edema.] Neurological exam: [PRESENT: alert, awake, orientation difficult to assess at this time] Skin exam: [PRESENT: dry, warm,] Results Laboratory Results: 01/14/17 05:15 01/14/17 05:15 01/14/17 01/14/17 01/14/17 05:15 05:15 05:15 WBC 10.6 H RBC 3.35 L Hgb 9.1 L Hct 28.2 L MCV 84 MCH 27.2 MCHC 32.4 RDW 16.1 H Plt Count 235 Seg Neutrophils % 85.4 H Lymphocytes % 8.2 L Monocytes % 5.6 Eosinophils % 0.3 Basophils % 0.5 Absolute Neutrophils 9.1 H Absolute Lymphocytes 0.9 Absolute Monocytes 0.6 Absolute Eosinophils 0.0 Absolute Basophils 0.1 Carbonic Acid 1.25 HCO3/H2CO3 Ratio 22:1 ABG pH 7.45 ABG pCO2 41.5 ABG pO2 75.4 L ABG HCO3 27.9 H ABG O2 Saturation 95.6 ABG Base Excess 3.5 FiO2 3.5 L Sodium 144.4 Potassium 2.9 L* D Chloride 104 Carbon Dioxide 26 Anion Gap 14 BUN 33 H Creatinine 3.77 H Est GFR ( Amer) 14 L Est GFR (Non-Af Amer) 11 L Glucose 173 H Calcium 8.3 L Phosphorus 3.1 Magnesium 1.7 01/01/17 01/01/17 01/02/17 23:20 23:20 06:07 Creatine Kinase 23 L 22 L CK-MB (CK-2) 0.36 Troponin I < 0.012 NT-Pro-B Natriuret Pep 01/02/17 01/04/17 06:07 05:45 Creatine Kinase CK-MB (CK-2) 0.47 Troponin I < 0.012 NT-Pro-B Natriuret Pep [id number] H Impressions: Cervical Spine CT 01/01/17 08:43 IMPRESSION: Considerable motion artifact. No fracture identified. If clinical suspicion of fracture persists, repeat imaging when the patient is more stable is recommended. Head CT 01/01/17 08:43 IMPRESSION: No visualized intracranial hemorrhage or fracture. Frontal soft tissue swelling. Significant patient motion limits evaluation of the lower cerebrum, skullbase and posterior fossa. Repeat exam recommended if there is high clinical suspicion. Hip X-Ray 01/01/17 08:43 IMPRESSION: No acute finding. Chest X-Ray 01/13/17 06:00 IMPRESSION: Cardiomegaly and mild central vascular congestion. Low lung volumes with small bilateral pleural effusions and bibasilar airspace opacities, may represent atelectasis or pneumonia. Assessment & Plan - Diagnosis (1) Hypokalemia Is this a current diagnosis for this admission?: YesPlan: Potassium replacement and 40 mEq of IV potassium rider given today. Since her potassium is only slow even though she is a dialysis patient I will start her on maintenance potassium 20 mEq by mouth liquid daily. We will adjust as necessary. (2) End-stage renal disease on hemodialysis Is this a current diagnosis for this admission?: YesPlan: Dialysis tomorrow. (3) Septic shock Is this a current diagnosis for this admission?: YesPlan: Resolved. (4) UTI (urinary tract infection) Qualifiers: Urinary tract infection type: site unspecified Hematuria presence: with hematuria Qualified Code(s): N39.0 - Urinary tract infection, site not specified Is this a current diagnosis for this admission?: YesPlan: Due to ESBL Escherichia coli. This was treated with antibiotics. (5) Anemia in chronic kidney disease Is this a current diagnosis for this admission?: YesPlan: We will plan to give Procrit during dialysis when necessary. (6) Metabolic encephalopathy Is this a current diagnosis for this admission?: YesPlan: Improving. (7) Contusion of face Is this a current diagnosis for this admission?: YesPlan: Resolving.
[2017-01-14] MEDS: FOLIC ACID/VITAMIN B COMP W-C CAPSULE PO SCH (17:08)
[2017-01-14] MEDS: CITALOPRAM HYDROBROMIDE 20 MG TABLET PO SCH (17:08)
[2017-01-14] MEDS: ASPIRIN 81 MG TABLET, CHEWABLE PO SCH (17:08)
[2017-01-14] MEDS: DOCUSATE SODIUM 100 MG CAPSULE PO SCH (17:08)
[2017-01-14] MEDS: CETIRIZINE HCL ORAL SOLN 5 MG/5 ML UDCUP PO SCH (17:08)
--- NOTE | 2017-01-14 20:44 | PDOC PROGRESS REPORT ---
Subjective Progress Note for:: 01/14/17 Subjective:: She was seen by the bedside she is on BiPAP machine otherwise she is stable Physical Exam Vital Signs: Temp Pulse Resp BP Pulse Ox 98.8 F 91 18 141/99 H 100 01/14/17 20:00 01/14/17 18:00 01/14/17 19:00 01/14/17 18:41 01/14/17 18:00 Intake & Output 01/13/17 01/14/17 01/15/17 06:59 06:59 06:59 Intake Total 405 441 263 Output Total 420 1454 95 Balance -15 -1013 168 Weight 77.2 kg 73 kg General appearance: PRESENT: no acute distress Eye exam: PRESENT: PERRLA Respiratory exam: PRESENT: clear to auscultation kennedi Cardiovascular exam: PRESENT: +S1, +S2 Results Laboratory Results: 01/14/17 05:15 01/14/17 05:15 01/14/17 01/14/17 01/14/17 05:15 05:15 05:15 WBC 10.6 H RBC 3.35 L Hgb 9.1 L Hct 28.2 L MCV 84 MCH 27.2 MCHC 32.4 RDW 16.1 H Plt Count 235 Seg Neutrophils % 85.4 H Lymphocytes % 8.2 L Monocytes % 5.6 Eosinophils % 0.3 Basophils % 0.5 Absolute Neutrophils 9.1 H Absolute Lymphocytes 0.9 Absolute Monocytes 0.6 Absolute Eosinophils 0.0 Absolute Basophils 0.1 Carbonic Acid 1.25 HCO3/H2CO3 Ratio 22:1 ABG pH 7.45 ABG pCO2 41.5 ABG pO2 75.4 L ABG HCO3 27.9 H ABG O2 Saturation 95.6 ABG Base Excess 3.5 FiO2 3.5 L Sodium 144.4 Potassium 2.9 L* D Chloride 104 Carbon Dioxide 26 Anion Gap 14 BUN 33 H Creatinine 3.77 H Est GFR ( Amer) 14 L Est GFR (Non-Af Amer) 11 L Glucose 173 H Calcium 8.3 L Phosphorus 3.1 Magnesium 1.7 01/01/17 01/01/17 01/02/17 23:20 23:20 06:07 Creatine Kinase 23 L 22 L CK-MB (CK-2) 0.36 Troponin I < 0.012 NT-Pro-B Natriuret Pep 01/02/17 01/04/17 06:07 05:45 Creatine Kinase CK-MB (CK-2) 0.47 Troponin I < 0.012 NT-Pro-B Natriuret Pep [id number] H Impressions: Cervical Spine CT 01/01/17 08:43 IMPRESSION: Considerable motion artifact. No fracture identified. If clinical suspicion of fracture persists, repeat imaging when the patient is more stable is recommended. Head CT 01/01/17 08:43 IMPRESSION: No visualized intracranial hemorrhage or fracture. Frontal soft tissue swelling. Significant patient motion limits evaluation of the lower cerebrum, skullbase and posterior fossa. Repeat exam recommended if there is high clinical suspicion. Hip X-Ray 01/01/17 08:43 IMPRESSION: No acute finding. Chest X-Ray 01/13/17 06:00 IMPRESSION: Cardiomegaly and mild central vascular congestion. Low lung volumes with small bilateral pleural effusions and bibasilar airspace opacities, may represent atelectasis or pneumonia. Assessment & Plan - Diagnosis (1) Urinary tract infection Qualifiers: Urinary tract infection type: site unspecified Hematuria presence: without hematuria Qualified Code(s): N39.0 - Urinary tract infection, site not specified Is this a current diagnosis for this admission?: Yes (2) Metabolic encephalopathy Is this a current diagnosis for this admission?: Yes (3) Severe persistent allergic asthma with acute exacerbation Is this a current diagnosis for this admission?: Yes (4) End-stage renal disease on hemodialysis Is this a current diagnosis for this admission?: Yes (5) Hypoglycemia Is this a current diagnosis for this admission?: Yes (6) Contusion of face Qualifiers: Encounter type: initial encounter Qualified Code(s): S00.83XA - Contusion of other part of head, initial encounter Is this a current diagnosis for this admission?: Yes (7) Septic shock Is this a current diagnosis for this admission?: Yes (8) UTI due to extended-spectrum beta lactamase (ESBL) producing Escherichia coli Is this a current diagnosis for this admission?: Yes (9) Septic shock Is this a current diagnosis for this admission?: Yes
[2017-01-14] MEDS: MIRTAZAPINE 15 MG TABLET PO SCH (21:32)
[2017-01-15] MEDS: LEVALBUTEROL HCL NEB 1.25 MG/3 ML AMPUL NEB SCH ×3 (00:58→17:12)
[2017-01-15] MEDS ORDERED: EPOETIN ALFA 5,000 UNIT in SYRINGE, DISPOSABLE, 1 EACH IV PRN (05:00)
[2017-01-15 05:39] LABS: ABSOLUTE EOSINOPHILS # (AUTO) 0.1 10^3/uL (0.0-0.6); ABSOLUTE MONOCYTES (AUTO) 0.8 10^3/uL (0.1-1.4); ABSOLUTE NEUT (AUTO) 6.3 10^3/uL (1.7-8.2); BASOPHILS % (AUTO) 0.6 % (0-2); EOSINOPHILS % (AUTO) 1.4 % (0-6); HEMATOCRIT 26.2 % (36.0-47.0); HEMOGLOBIN 8.7 g/dL (12.0-15.5); HGB HCT DIFFERENCE -0.1; LYMPHOCYTES % (AUTO) 11.8 % (13-45); MEAN CORPUSCULAR HEMOGLOBIN 27.6 pg (27.0-33.4); MEAN CORPUSCULAR HGB CONC 33.2 g/dL (32.0-36.0); MEAN CORPUSCULAR VOLUME 83 fl (80-97); MONOCYTES % (AUTO) 9.9 % (3-13); RED BLOOD COUNT 3.15 10^6/uL (3.72-5.28); SEGMENTED NEUTROPHILS % (AUTO) 76.3 % (42-78); WHITE BLOOD COUNT 8.2 10^3/uL (4.0-10.5)
[2017-01-15 05:49] LABS: ANION GAP 10 (5-19); BLOOD UREA NITROGEN 38 mg/dL (7-20); CALCIUM 8.2 mg/dL (8.4-10.2); CARBON DIOXIDE 27 mmol/L (22-30); CHLORIDE 108 mmol/L (98-107); GLUCOSE 134 mg/dL (75-110); POTASSIUM 3.3 mmol/L (3.6-5.0)
[2017-01-15] MEDS: BUDESONIDE NEB 0.5 MG/2 ML AMPUL NEB SCH ×2 (07:57→20:24)
[2017-01-15] MEDS: CALCIUM ACETATE 667 MG CAPSULE PO SCH ×3 (08:04→16:39)
[2017-01-15] MEDS: POTASSIUM CHLORIDE 20 MEQ/15 ML UDCUP PO SCH (10:08)
[2017-01-15] MEDS: LACTOBACILLUS ACIDOPHILUS 250 MG TAB PO SCH ×2 (10:08→17:49)
[2017-01-15] MEDS: SITAGLIPTIN PHOSPHATE 25 MG TABLET PO SCH (10:08)
[2017-01-15] MEDS: LANSOPRAZOLE 15 MG TAB.RAP.DR PO SCH (10:08)
[2017-01-15] MEDS: FUROSEMIDE 40 MG TABLET PO SCH ×2 (10:08→17:49)
[2017-01-15] MEDS ORDERED: EPOETIN ALFA 10,000 UNIT in SYRINGE, DISPOSABLE, 1 EACH IV ONE (12:00)
[2017-01-15] MEDS: TIMOLOL MALEATE 0.5% OPH SOLN 5 ML OU SCH ×2 (13:22→21:11)
[2017-01-15] MEDS: FLUTICASONE NASAL SPRAY 50 MCG/SPRY 120 SPRAY/16 GM NAREB SCH ×2 (13:22→21:10)
[2017-01-15] MEDS: METOPROLOL TARTRATE PF/INJ 5 MG/5 ML SDV IV SCH ×2 (13:22→21:10)
--- NOTE | 2017-01-15 13:30 | PDOC PROGRESS REPORT ---
Subjective Progress Note for:: 01/14/17 Subjective:: Lethargic Physical Exam Vital Signs: Temp Pulse Resp BP Pulse Ox 98.6 F 88 16 120/62 98 01/14/17 08:00 01/14/17 08:05 01/14/17 08:05 01/14/17 08:00 01/14/17 08:05 Intake & Output 01/13/17 01/14/17 01/15/17 06:59 06:59 06:59 Intake Total 405 441 Output Total 420 1454 15 Balance -15 -1013 -15 Weight 77.2 kg 73 kg General appearance: PRESENT: disheveled, obese Head exam: PRESENT: atraumatic, normocephalic Eye exam: PRESENT: conjunctiva pale, EOMI Mouth exam: PRESENT: dry mucosa, neck supple Neck exam: ABSENT: carotid bruit, JVD, lymphadenopathy, thyromegaly Respiratory exam: PRESENT: decreased breath sounds, prolonged expiratory phas, rhonchi, unlabored, other - Bibasilar egophony Cardiovascular exam: PRESENT: irregular rhythm Pulses: PRESENT: normal radial pulses GI/Abdominal exam: PRESENT: normal bowel sounds, soft. ABSENT: distended, guarding, mass, organolmegaly, rebound, tenderness Rectal exam: PRESENT: deferred Gentrourinary exam: PRESENT: indwelling catheter Musculoskeletal exam: PRESENT: normal inspection Neurological exam: PRESENT: awake Skin exam: PRESENT: dry, warm Results Laboratory Results: 01/14/17 05:15 01/14/17 05:15 01/13/17 01/14/17 01/14/17 10:25 05:15 05:15 WBC RBC Hgb Hct MCV MCH MCHC RDW Plt Count Seg Neutrophils % Lymphocytes % Monocytes % Eosinophils % Basophils % Absolute Neutrophils Absolute Lymphocytes Absolute Monocytes Absolute Eosinophils Absolute Basophils Carbonic Acid 1.71 H 1.25 HCO3/H2CO3 Ratio 16:1 22:1 ABG pH 7.32 L 7.45 ABG pCO2 56.9 H 41.5 ABG pO2 75.4 L 75.4 L ABG HCO3 28.7 H 27.9 H ABG O2 Saturation 93.8 L 95.6 ABG Base Excess 1.5 3.5 FiO2 50% 3.5 L Sodium 144.4 Potassium 2.9 L* D Chloride 104 Carbon Dioxide 26 Anion Gap 14 BUN 33 H Creatinine 3.77 H Est GFR ( Amer) 14 L Est GFR (Non-Af Amer) 11 L Glucose 173 H Calcium 8.3 L Phosphorus 3.1 Magnesium 1.7 01/14/17 05:15 WBC 10.6 H RBC 3.35 L Hgb 9.1 L Hct 28.2 L MCV 84 MCH 27.2 MCHC 32.4 RDW 16.1 H Plt Count 235 Seg Neutrophils % 85.4 H Lymphocytes % 8.2 L Monocytes % 5.6 Eosinophils % 0.3 Basophils % 0.5 Absolute Neutrophils 9.1 H Absolute Lymphocytes 0.9 Absolute Monocytes 0.6 Absolute Eosinophils 0.0 Absolute Basophils 0.1 Carbonic Acid HCO3/H2CO3 Ratio ABG pH ABG pCO2 ABG pO2 ABG HCO3 ABG O2 Saturation ABG Base Excess FiO2 Sodium Potassium Chloride Carbon Dioxide Anion Gap BUN Creatinine Est GFR ( Amer) Est GFR (Non-Af Amer) Glucose Calcium Phosphorus Magnesium 01/01/17 01/01/17 01/02/17 23:20 23:20 06:07 Creatine Kinase 23 L 22 L CK-MB (CK-2) 0.36 Troponin I < 0.012 NT-Pro-B Natriuret Pep 01/02/17 01/04/17 06:07 05:45 Creatine Kinase CK-MB (CK-2) 0.47 Troponin I < 0.012 NT-Pro-B Natriuret Pep [id number] H Impressions: Cervical Spine CT 01/01/17 08:43 IMPRESSION: Considerable motion artifact. No fracture identified. If clinical suspicion of fracture persists, repeat imaging when the patient is more stable is recommended. Head CT 01/01/17 08:43 IMPRESSION: No visualized intracranial hemorrhage or fracture. Frontal soft tissue swelling. Significant patient motion limits evaluation of the lower cerebrum, skullbase and posterior fossa. Repeat exam recommended if there is high clinical suspicion. Hip X-Ray 01/01/17 08:43 IMPRESSION: No acute finding. Chest X-Ray 01/13/17 06:00 IMPRESSION: Cardiomegaly and mild central vascular congestion. Low lung volumes with small bilateral pleural effusions and bibasilar airspace opacities, may represent atelectasis or pneumonia. Assessment & Plan - Diagnosis (1) Dementia Is this a current diagnosis for this admission?: Yes (2) End-stage renal disease on hemodialysis Is this a current diagnosis for this admission?: Yes (3) Respiratory failure Qualifiers: Chronicity: acute Is this a current diagnosis for this admission?: Yes (4) Septic shock Is this a current diagnosis for this admission?: Yes (5) Pleural cavity effusion Is this a current diagnosis for this admission?: YesPlan: Bilateral pleural effusions moderately large felt to be secondary to volume overload discussed with radiology no intent to do thoracentesis at this time - Time Critical Time spent with patient: 35 or more minutes
--- NOTE | 2017-01-15 13:31 | PDOC PROGRESS REPORT ---
Subjective Progress Note for:: 01/15/17 Subjective:: Lethargic Physical Exam Vital Signs: Temp Pulse Resp BP Pulse Ox 98.6 F 93 20 130/55 H 100 01/15/17 11:56 01/15/17 11:56 01/15/17 11:56 01/15/17 11:56 01/15/17 11:56 Intake & Output 01/14/17 01/15/17 01/16/17 06:59 06:59 06:59 Intake Total 441 497 Output Total 1454 295 15 Balance -1013 202 -15 Weight 73 kg 74.5 kg General appearance: PRESENT: no acute distress, disheveled, obese Head exam: PRESENT: atraumatic, normocephalic Eye exam: PRESENT: conjunctiva pale Mouth exam: PRESENT: neck supple Respiratory exam: PRESENT: decreased breath sounds, prolonged expiratory phas, symmetrical, unlabored, other Cardiovascular exam: PRESENT: irregular rhythm Pulses: PRESENT: normal radial pulses GI/Abdominal exam: PRESENT: normal bowel sounds, soft. ABSENT: distended, guarding, mass, organolmegaly, rebound, tenderness Rectal exam: PRESENT: deferred Gentrourinary exam: PRESENT: indwelling catheter Neurological exam: PRESENT: awake Skin exam: PRESENT: dry, warm Results Laboratory Results: 01/15/17 04:25 01/15/17 04:25 01/15/17 01/15/17 04:25 04:25 WBC 8.2 RBC 3.15 L Hgb 8.7 L Hct 26.2 L MCV 83 MCH 27.6 MCHC 33.2 RDW 16.0 H Plt Count 224 Seg Neutrophils % 76.3 Lymphocytes % 11.8 L Monocytes % 9.9 Eosinophils % 1.4 Basophils % 0.6 Absolute Neutrophils 6.3 Absolute Lymphocytes 1.0 Absolute Monocytes 0.8 Absolute Eosinophils 0.1 Absolute Basophils 0.0 Sodium 145.0 Potassium 3.3 L Chloride 108 H Carbon Dioxide 27 Anion Gap 10 BUN 38 H Creatinine 4.70 H Est GFR ( Amer) 11 L Est GFR (Non-Af Amer) 9 L Glucose 134 H Calcium 8.2 L 01/01/17 01/01/17 01/02/17 23:20 23:20 06:07 Creatine Kinase 23 L 22 L CK-MB (CK-2) 0.36 Troponin I < 0.012 NT-Pro-B Natriuret Pep 01/02/17 01/04/17 06:07 05:45 Creatine Kinase CK-MB (CK-2) 0.47 Troponin I < 0.012 NT-Pro-B Natriuret Pep [id number] H Impressions: Cervical Spine CT 01/01/17 08:43 IMPRESSION: Considerable motion artifact. No fracture identified. If clinical suspicion of fracture persists, repeat imaging when the patient is more stable is recommended. Head CT 01/01/17 08:43 IMPRESSION: No visualized intracranial hemorrhage or fracture. Frontal soft tissue swelling. Significant patient motion limits evaluation of the lower cerebrum, skullbase and posterior fossa. Repeat exam recommended if there is high clinical suspicion. Hip X-Ray 01/01/17 08:43 IMPRESSION: No acute finding. Chest X-Ray 01/13/17 06:00 IMPRESSION: Cardiomegaly and mild central vascular congestion. Low lung volumes with small bilateral pleural effusions and bibasilar airspace opacities, may represent atelectasis or pneumonia. Assessment & Plan - Diagnosis (1) Dementia Is this a current diagnosis for this admission?: Yes (2) End-stage renal disease on hemodialysis Is this a current diagnosis for this admission?: Yes (3) Respiratory failure Qualifiers: Chronicity: acute Is this a current diagnosis for this admission?: Yes (4) Septic shock Is this a current diagnosis for this admission?: Yes - Time Critical Time spent with patient: 25-34 minutes
[2017-01-15] MEDS: BUDESONIDE/FORMOTEROL 160-4.5 MCG 60 PUFF/6 GM MDI IH SCH ×2 (13:36→21:11)
[2017-01-15 13:55] LABS: ABSOLUTE EOSINOPHILS # (AUTO) 0.1 10^3/uL (0.0-0.6); ABSOLUTE MONOCYTES (AUTO) 0.7 10^3/uL (0.1-1.4); ABSOLUTE NEUT (AUTO) 5.3 10^3/uL (1.7-8.2); BASOPHILS % (AUTO) 0.7 % (0-2); EOSINOPHILS % (AUTO) 0.7 % (0-6); HEMATOCRIT 26.4 % (36.0-47.0); HGB HCT DIFFERENCE 0.6; LYMPHOCYTES % (AUTO) 13.6 % (13-45); MEAN CORPUSCULAR HEMOGLOBIN 28.1 pg (27.0-33.4); MEAN CORPUSCULAR HGB CONC 34.1 g/dL (32.0-36.0); MEAN CORPUSCULAR VOLUME 83 fl (80-97); MONOCYTES % (AUTO) 9.3 % (3-13); RED CELL DISTRIBUTION WIDTH 15.9 % (11.5-14.0); SEGMENTED NEUTROPHILS % (AUTO) 75.7 % (42-78); WHITE BLOOD COUNT 7.1 10^3/uL (4.0-10.5)
[2017-01-15] MEDS: CETIRIZINE HCL ORAL SOLN 5 MG/5 ML UDCUP PO SCH (17:49)
[2017-01-15] MEDS: FOLIC ACID/VITAMIN B COMP W-C CAPSULE PO SCH (17:49)
[2017-01-15] MEDS: CITALOPRAM HYDROBROMIDE 20 MG TABLET PO SCH (17:49)
[2017-01-15] MEDS: ASPIRIN 81 MG TABLET, CHEWABLE PO SCH (17:49)
[2017-01-15] MEDS: DOCUSATE SODIUM 100 MG CAPSULE PO SCH (17:49)
[2017-01-15] MEDS: DEXTROSE 5%-NORMAL SALINE 1,000 ML IV PRN (17:56)
--- NOTE | 2017-01-15 20:56 | PDOC PROGRESS REPORT ---
Subjective Progress Note for:: 01/15/17 Subjective:: Patient seen during dialysis this morning at around 9 AM. Patient is more awake she is actually responding to some simple questions. He tells me that she is doing fine. She continues to be on BiPAP. She was tolerating dialysis until her venous needle came off and had some bleeding. Unfortunately the blood and has not returned completely. The whole system was change subsequently to finish and complete her dialysis treatment. After that she tolerated procedure. Physical Exam Vital Signs: Temp Pulse Resp BP Pulse Ox 98.2 F 70 15 129/51 H 97 01/15/17 18:00 01/15/17 18:00 01/15/17 18:15 01/15/17 18:00 01/15/17 18:00 Intake & Output 01/14/17 01/15/17 01/16/17 06:59 06:59 06:59 Intake Total 441 497 249 Output Total 3044 623 7405 Balance -1013 202 -1294 Weight 73 kg 74.5 kg Vital signs during dialysis this morning: Blood pressure 173/70, heart rate 101 , respiratory rate of 18, oxygen saturation 100% on BiPAP. Blood flow rate of 450 mL per minute, dialysate flow rate of 600 mL per minute. Exam: General appearance: PRESENT: Patient is awake, alert, answering questions, on BiPAP Head exam: PRESENT: atraumatic, normocephalic Eye exam: PRESENT: conjunctiva pale, PERRLA. ABSENT: scleral icterus Neck exam: ABSENT: JVD Respiratory exam: PRESENT: Diminished breath sounds. ABSENT: crackles, rales, rhonchi, unlabored, wheezes Cardiovascular exam: PRESENT: Regular rate rhythm -+S1, +S2. ABSENT: diastolic murmur, systolic murmur GI/Abdominal exam: PRESENT: normal bowel sounds, soft. ABSENT: guarding, mass, tenderness Extremities exam: ABSENT: No edema, upper extremity edema is almost resolved. Neurological exam: PRESENT: alert, awake, oriented to person, place and time. Skin exam: PRESENT: dry, warm, Results Laboratory Results: 01/15/17 13:20 01/15/17 04:25 01/15/17 01/15/17 01/15/17 04:25 04:25 13:20 WBC 8.2 7.1 RBC 3.15 L 3.20 L Hgb 8.7 L 9.0 L Hct 26.2 L 26.4 L MCV 83 83 MCH 27.6 28.1 MCHC 33.2 34.1 RDW 16.0 H 15.9 H Plt Count 224 213 Seg Neutrophils % 76.3 75.7 Lymphocytes % 11.8 L 13.6 Monocytes % 9.9 9.3 Eosinophils % 1.4 0.7 Basophils % 0.6 0.7 Absolute Neutrophils 6.3 5.3 Absolute Lymphocytes 1.0 1.0 Absolute Monocytes 0.8 0.7 Absolute Eosinophils 0.1 0.1 Absolute Basophils 0.0 0.0 Sodium 145.0 Potassium 3.3 L Chloride 108 H Carbon Dioxide 27 Anion Gap 10 BUN 38 H Creatinine 4.70 H Est GFR ( Amer) 11 L Est GFR (Non-Af Amer) 9 L Glucose 134 H Calcium 8.2 L 01/01/17 01/01/17 01/02/17 23:20 23:20 06:07 Creatine Kinase 23 L 22 L CK-MB (CK-2) 0.36 Troponin I < 0.012 NT-Pro-B Natriuret Pep 01/02/17 01/04/17 06:07 05:45 Creatine Kinase CK-MB (CK-2) 0.47 Troponin I < 0.012 NT-Pro-B Natriuret Pep [id number] H Impressions: Cervical Spine CT 01/01/17 08:43 IMPRESSION: Considerable motion artifact. No fracture identified. If clinical suspicion of fracture persists, repeat imaging when the patient is more stable is recommended. Head CT 01/01/17 08:43 IMPRESSION: No visualized intracranial hemorrhage or fracture. Frontal soft tissue swelling. Significant patient motion limits evaluation of the lower cerebrum, skullbase and posterior fossa. Repeat exam recommended if there is high clinical suspicion. Hip X-Ray 01/01/17 08:43 IMPRESSION: No acute finding. Chest X-Ray 01/13/17 06:00 IMPRESSION: Cardiomegaly and mild central vascular congestion. Low lung volumes with small bilateral pleural effusions and bibasilar airspace opacities, may represent atelectasis or pneumonia. Assessment & Plan - Diagnosis (1) End-stage renal disease on hemodialysis Is this a current diagnosis for this admission?: YesPlan: We did dialysis today for [3] hours, using the patient's AV fistula, with 3 potassium bath, blood flow rate of 450 mL per minute, dialysate flow rate of [ 600] mL per minute, ultrafiltration 1.5 L, [no heparin] and Procrit with [15,000 ] units during dialysis intravenously. We will continue hemodialysis support. (2) Hypokalemia Is this a current diagnosis for this admission?: YesPlan: We will use 3 potassium bath. Continue daily daily potassium supplement if able to take it orally. (3) Septic shock Is this a current diagnosis for this admission?: YesPlan: Resolved. (4) UTI (urinary tract infection) Qualifiers: Urinary tract infection type: site unspecified Hematuria presence: with hematuria Qualified Code(s): N39.0 - Urinary tract infection, site not specified Is this a current diagnosis for this admission?: YesPlan: Due to ESBL Escherichia coli. This was treated with antibiotics. (5) Anemia in chronic kidney disease Is this a current diagnosis for this admission?: YesPlan: We will plan to give Procrit during dialysis when necessary. (6) Metabolic encephalopathy Is this a current diagnosis for this admission?: YesPlan: Improving. Almost at baseline. (7) Contusion of face Is this a current diagnosis for this admission?: YesPlan: Resolving. - Time Time with patient: 15-25 minutes
[2017-01-15] MEDS: MIRTAZAPINE 15 MG TABLET PO SCH (21:11)
[2017-01-16] MEDS: LEVALBUTEROL HCL NEB 1.25 MG/3 ML AMPUL NEB SCH ×3 (00:05→16:21)
[2017-01-16] MEDS: BUDESONIDE NEB 0.5 MG/2 ML AMPUL NEB SCH ×2 (07:45→22:13)
[2017-01-16] MEDS: CALCIUM ACETATE 667 MG CAPSULE PO SCH ×3 (08:33→17:05)
[2017-01-16] MEDS: SITAGLIPTIN PHOSPHATE 25 MG TABLET PO SCH (09:59)
[2017-01-16] MEDS: FUROSEMIDE 40 MG TABLET PO SCH ×2 (09:59→17:05)
[2017-01-16] MEDS: LACTOBACILLUS ACIDOPHILUS 250 MG TAB PO SCH ×2 (09:59→17:05)
[2017-01-16] MEDS: POTASSIUM CHLORIDE 20 MEQ/15 ML UDCUP PO SCH (09:59)
[2017-01-16] MEDS: LANSOPRAZOLE 15 MG TAB.RAP.DR PO SCH (09:59)
[2017-01-16] MEDS: BUDESONIDE/FORMOTEROL 160-4.5 MCG 60 PUFF/6 GM MDI IH SCH ×2 (10:01→21:42)
[2017-01-16 10:02] LABS: ABSOLUTE BASOPHILS # (AUTO) 0.1 10^3/uL (0.0-0.2); ABSOLUTE MONOCYTES (AUTO) 0.7 10^3/uL (0.1-1.4); ABSOLUTE NEUT (AUTO) 4.1 10^3/uL (1.7-8.2); BASOPHILS % (AUTO) 0.9 % (0-2); EOSINOPHILS % (AUTO) 0.6 % (0-6); HEMATOCRIT 26.1 % (36.0-47.0); HEMOGLOBIN 8.6 g/dL (12.0-15.5); HGB HCT DIFFERENCE -0.3; LYMPHOCYTES % (AUTO) 16.5 % (13-45); MEAN CORPUSCULAR HEMOGLOBIN 27.5 pg (27.0-33.4); MEAN CORPUSCULAR VOLUME 83 fl (80-97); MONOCYTES % (AUTO) 11.4 % (3-13); RED BLOOD COUNT 3.13 10^6/uL (3.72-5.28); RED CELL DISTRIBUTION WIDTH 16.1 % (11.5-14.0); SEGMENTED NEUTROPHILS % (AUTO) 70.6 % (42-78); WHITE BLOOD COUNT 5.8 10^3/uL (4.0-10.5)
[2017-01-16 10:17] LABS: ANION GAP 12 (5-19); BLOOD UREA NITROGEN 21 mg/dL (7-20); CARBON DIOXIDE 26 mmol/L (22-30); CHLORIDE 106 mmol/L (98-107); CREATININE RESULT 2.92 mg/dL (0.52-1.25); GLUCOSE 121 mg/dL (75-110); POTASSIUM 3.5 mmol/L (3.6-5.0); SODIUM 143.7 mmol/L (137-145)
[2017-01-16] MEDS: METOPROLOL TARTRATE PF/INJ 5 MG/5 ML SDV IV SCH ×2 (10:38→21:42)
[2017-01-16] MEDS: FLUTICASONE NASAL SPRAY 50 MCG/SPRY 120 SPRAY/16 GM NAREB SCH ×2 (10:39→21:41)
[2017-01-16] MEDS: TIMOLOL MALEATE 0.5% OPH SOLN 5 ML OU SCH ×2 (13:51→21:42)
[2017-01-16] MEDS: FOLIC ACID/VITAMIN B COMP W-C CAPSULE PO SCH (17:05)
[2017-01-16] MEDS: CITALOPRAM HYDROBROMIDE 20 MG TABLET PO SCH (17:05)
[2017-01-16] MEDS: DOCUSATE SODIUM 100 MG CAPSULE PO SCH (17:05)
[2017-01-16] MEDS: CETIRIZINE HCL ORAL SOLN 5 MG/5 ML UDCUP PO SCH (17:05)
[2017-01-16] MEDS: ASPIRIN 81 MG TABLET, CHEWABLE PO SCH (17:05)
--- NOTE | 2017-01-16 18:01 | PDOC PROGRESS REPORT ---
Subjective Progress Note for:: 01/16/17 Subjective:: She will be downgraded to telemetry floor Physical Exam Vital Signs: Temp Pulse Resp BP Pulse Ox 99.9 F 92 24 H 172/61 H 98 01/16/17 16:00 01/16/17 16:21 01/16/17 16:21 01/16/17 16:00 01/16/17 16:21 Intake & Output 01/15/17 01/16/17 01/17/17 06:59 06:59 06:59 Intake Total 497 463 Output Total 295 1608 45 Balance 202 -1145 -45 Weight 74.5 kg 74.1 kg General appearance: PRESENT: no acute distress Head exam: PRESENT: atraumatic, normocephalic Eye exam: PRESENT: conjunctiva pink, EOMI, PERRLA Neck exam: PRESENT: full ROM Cardiovascular exam: PRESENT: RRR, +S1 Pulses: PRESENT: normal dorsalis pedis pul, +2 pedal pulses bilateral Vascular exam: PRESENT: normal capillary refill GI/Abdominal exam: PRESENT: normal bowel sounds, soft Rectal exam: PRESENT: deferred Neurological exam: PRESENT: alert. ABSENT: motor sensory deficit Results Laboratory Results: 01/16/17 09:33 01/16/17 09:33 01/16/17 01/16/17 09:33 09:33 WBC 5.8 RBC 3.13 L Hgb 8.6 L Hct 26.1 L MCV 83 MCH 27.5 MCHC 33.0 RDW 16.1 H Plt Count 224 Seg Neutrophils % 70.6 Lymphocytes % 16.5 Monocytes % 11.4 Eosinophils % 0.6 Basophils % 0.9 Absolute Neutrophils 4.1 Absolute Lymphocytes 1.0 Absolute Monocytes 0.7 Absolute Eosinophils 0.0 Absolute Basophils 0.1 Sodium 143.7 Potassium 3.5 L Chloride 106 Carbon Dioxide 26 Anion Gap 12 BUN 21 H Creatinine 2.92 H Est GFR ( Amer) 18 L Est GFR (Non-Af Amer) 15 L Glucose 121 H Calcium 8.0 L 01/01/17 01/01/17 01/02/17 23:20 23:20 06:07 Creatine Kinase 23 L 22 L CK-MB (CK-2) 0.36 Troponin I < 0.012 NT-Pro-B Natriuret Pep 01/02/17 01/04/17 06:07 05:45 Creatine Kinase CK-MB (CK-2) 0.47 Troponin I < 0.012 NT-Pro-B Natriuret Pep [id number] H Impressions: Cervical Spine CT 01/01/17 08:43 IMPRESSION: Considerable motion artifact. No fracture identified. If clinical suspicion of fracture persists, repeat imaging when the patient is more stable is recommended. Head CT 01/01/17 08:43 IMPRESSION: No visualized intracranial hemorrhage or fracture. Frontal soft tissue swelling. Significant patient motion limits evaluation of the lower cerebrum, skullbase and posterior fossa. Repeat exam recommended if there is high clinical suspicion. Hip X-Ray 01/01/17 08:43 IMPRESSION: No acute finding. Chest X-Ray 01/13/17 06:00 IMPRESSION: Cardiomegaly and mild central vascular congestion. Low lung volumes with small bilateral pleural effusions and bibasilar airspace opacities, may represent atelectasis or pneumonia. Assessment & Plan - Diagnosis (1) Urinary tract infection Qualifiers: Urinary tract infection type: site unspecified Hematuria presence: without hematuria Qualified Code(s): N39.0 - Urinary tract infection, site not specified Is this a current diagnosis for this admission?: Yes (2) Metabolic encephalopathy Is this a current diagnosis for this admission?: Yes (3) Severe persistent allergic asthma with acute exacerbation Is this a current diagnosis for this admission?: Yes (4) End-stage renal disease on hemodialysis Is this a current diagnosis for this admission?: Yes (5) Hypoglycemia Is this a current diagnosis for this admission?: Yes (6) Contusion of face Qualifiers: Encounter type: initial encounter Qualified Code(s): S00.83XA - Contusion of other part of head, initial encounter Is this a current diagnosis for this admission?: Yes (7) Septic shock Is this a current diagnosis for this admission?: Yes (8) UTI due to extended-spectrum beta lactamase (ESBL) producing Escherichia coli Is this a current diagnosis for this admission?: Yes (9) Septic shock Is this a current diagnosis for this admission?: Yes
[2017-01-16] MEDS: HEPARIN SOD (PORCINE) 5,000 UNIT/ML 1 ML SYRINGE SUBCUT SCH (21:41)
[2017-01-16] MEDS: MIRTAZAPINE 15 MG TABLET PO SCH (21:42)
[2017-01-16] MEDS: CARVEDILOL 12.5 MG TABLET PO SCH (21:42)
[2017-01-17] MEDS: LEVALBUTEROL HCL NEB 1.25 MG/3 ML AMPUL NEB SCH ×3 (01:27→15:36)
[2017-01-17 04:48] LABS: ABSOLUTE EOSINOPHILS # (AUTO) 0.1 10^3/uL (0.0-0.6); ABSOLUTE MONOCYTES (AUTO) 0.8 10^3/uL (0.1-1.4); ABSOLUTE NEUT (AUTO) 3.2 10^3/uL (1.7-8.2); BASOPHILS % (AUTO) 0.7 % (0-2); EOSINOPHILS % (AUTO) 1.1 % (0-6); HEMATOCRIT 24.9 % (36.0-47.0); HEMOGLOBIN 8.5 g/dL (12.0-15.5); HGB HCT DIFFERENCE 0.6; LYMPHOCYTES % (AUTO) 19.4 % (13-45); MEAN CORPUSCULAR VOLUME 82 fl (80-97); MONOCYTES % (AUTO) 15.6 % (3-13); RED BLOOD COUNT 3.03 10^6/uL (3.72-5.28); RED CELL DISTRIBUTION WIDTH 15.7 % (11.5-14.0); SEGMENTED NEUTROPHILS % (AUTO) 63.2 % (42-78)
[2017-01-17] MEDS ORDERED: EPOETIN ALFA INJ 20000 UNIT/1 ML VIAL (RENAL) IV PRN (05:00)
[2017-01-17 05:04] LABS: ANION GAP 14 (5-19); BLOOD UREA NITROGEN 21 mg/dL (7-20); CALCIUM 8.1 mg/dL (8.4-10.2); CARBON DIOXIDE 25 mmol/L (22-30); CHLORIDE 108 mmol/L (98-107); CREATININE RESULT 4.01 mg/dL (0.52-1.25); GLUCOSE 119 mg/dL (75-110); PHOSPHORUS 1.6 mg/dL (2.5-4.5); SODIUM 147.4 mmol/L (137-145)
[2017-01-17] MEDS: HEPARIN SOD (PORCINE) 5,000 UNIT/ML 1 ML SYRINGE SUBCUT SCH ×3 (05:24→23:09)
[2017-01-17] MEDS ORDERED: POTASSI CL 20 MEQ/50 ML RIDER 20 MEQ/50 ML RTUPB IV ONE (06:00)
[2017-01-17] MEDS: CALCIUM ACETATE 667 MG CAPSULE PO SCH ×2 (07:35→10:18)
[2017-01-17] MEDS: BUDESONIDE NEB 0.5 MG/2 ML AMPUL NEB SCH ×2 (08:04→19:41)
[2017-01-17] MEDS ORDERED: POTASSI CL 20 MEQ/50 ML RIDER 20 MEQ/50 ML RTUPB IV SCH (10:00)
[2017-01-17] MEDS: CARVEDILOL 12.5 MG TABLET PO SCH ×2 (10:18→23:19)
[2017-01-17] MEDS: LANSOPRAZOLE 15 MG TAB.RAP.DR PO SCH (10:18)
[2017-01-17] MEDS: BUDESONIDE/FORMOTEROL 160-4.5 MCG 60 PUFF/6 GM MDI IH SCH (10:18)
[2017-01-17] MEDS: FUROSEMIDE 40 MG TABLET PO SCH ×2 (10:18→17:43)
[2017-01-17] MEDS: SITAGLIPTIN PHOSPHATE 25 MG TABLET PO SCH (10:18)
[2017-01-17] MEDS: LACTOBACILLUS ACIDOPHILUS 250 MG TAB PO SCH ×2 (10:18→17:43)
[2017-01-17] MEDS: METOPROLOL TARTRATE PF/INJ 5 MG/5 ML SDV IV SCH ×2 (12:39→23:18)
[2017-01-17] MEDS: FLUTICASONE NASAL SPRAY 50 MCG/SPRY 120 SPRAY/16 GM NAREB SCH ×2 (12:40→23:16)
[2017-01-17] MEDS: TIMOLOL MALEATE 0.5% OPH SOLN 5 ML OU SCH ×2 (12:40→23:16)
[2017-01-17] MEDS ORDERED: POTASSIUM PHOS M BASIC D BASIC IV ONE (13:30)
[2017-01-17] MEDS ORDERED: NORMAL SALINE IV ONE (13:30)
--- NOTE | 2017-01-17 13:33 | PDOC PROGRESS REPORT ---
Subjective Progress Note for:: 01/17/17 Subjective:: Patient is seen on dialysis today in the ICU. I am covering this patient in the absence of Dr. Alonoz. Patient is on BiPAP and struggling. Chart was reviewed and discussed with the treating nurse. Patient undergoing dialysis and no particular issues related to dialysis is seen. Vital signs are stable and we will plan to remove about a liter and 2 of fluid as tolerated. Physical Exam Vital Signs: Temp Pulse Resp BP Pulse Ox 99.3 F 83 23 H 126/49 H 98 01/17/17 08:00 01/17/17 08:03 01/17/17 10:45 01/17/17 10:43 01/17/17 10:45 Intake & Output 01/16/17 01/17/17 01/18/17 06:59 06:59 06:59 Intake Total 463 487 Output Total 1608 165 35 Balance -1145 322 -35 Weight 74.1 kg 75.5 kg General appearance: PRESENT: mild distress Respiratory exam: PRESENT: clear to auscultation kennedi, crackles. ABSENT: rhonchi Cardiovascular exam: PRESENT: +S1, +S2 GI/Abdominal exam: PRESENT: normal bowel sounds, soft. ABSENT: distended, guarding, tenderness Extremities exam: ABSENT: pedal edema Psychiatric exam: PRESENT: agitated, anxious Results Laboratory Results: 01/17/17 04:30 01/17/17 04:30 01/17/17 01/17/17 04:30 04:30 WBC 5.0 RBC 3.03 L Hgb 8.5 L Hct 24.9 L MCV 82 MCH 28.0 MCHC 34.0 RDW 15.7 H Plt Count 231 Seg Neutrophils % 63.2 Lymphocytes % 19.4 Monocytes % 15.6 H Eosinophils % 1.1 Basophils % 0.7 Absolute Neutrophils 3.2 Absolute Lymphocytes 1.0 Absolute Monocytes 0.8 Absolute Eosinophils 0.1 Absolute Basophils 0.0 Sodium 147.4 H Potassium 3.0 L* Chloride 108 H Carbon Dioxide 25 Anion Gap 14 BUN 21 H Creatinine 4.01 H Est GFR ( Amer) 13 L Est GFR (Non-Af Amer) 11 L Glucose 119 H Calcium 8.1 L Phosphorus 1.6 L 01/01/17 01/01/17 01/02/17 23:20 23:20 06:07 Creatine Kinase 23 L 22 L CK-MB (CK-2) 0.36 Troponin I < 0.012 NT-Pro-B Natriuret Pep 01/02/17 01/04/17 06:07 05:45 Creatine Kinase CK-MB (CK-2) 0.47 Troponin I < 0.012 NT-Pro-B Natriuret Pep 65273 H Impressions: Cervical Spine CT 01/01/17 08:43 IMPRESSION: Considerable motion artifact. No fracture identified. If clinical suspicion of fracture persists, repeat imaging when the patient is more stable is recommended. Head CT 01/01/17 08:43 IMPRESSION: No visualized intracranial hemorrhage or fracture. Frontal soft tissue swelling. Significant patient motion limits evaluation of the lower cerebrum, skullbase and posterior fossa. Repeat exam recommended if there is high clinical suspicion. Hip X-Ray 01/01/17 08:43 IMPRESSION: No acute finding. Chest X-Ray 01/13/17 06:00 IMPRESSION: Cardiomegaly and mild central vascular congestion. Low lung volumes with small bilateral pleural effusions and bibasilar airspace opacities, may represent atelectasis or pneumonia. Assessment & Plan - Diagnosis (1) Hypophosphatemia Plan: To be treated with IV since she is not able to take anything p.o. orders have been placed and discussed with the treating nurseRenee. (2) End-stage renal disease on hemodialysis Is this a current diagnosis for this admission?: YesPlan: Reason undergoing dialysis. We will try to extract him on 2 L of fluid as tolerated. Discussed with the treating nurse Nereida.Her potassium is low and she is on a 3K bath. We will also need to replace IV. (3) Hypokalemia Is this a current diagnosis for this admission?: YesPlan: She is on a 3K bath. Will also replace parenterally and orders have been placed (4) Respiratory failure Qualifiers: Chronicity: acute Is this a current diagnosis for this admission?: YesPlan: On BiPAP. Further orders as per Dr. Richardson. (5) Septic shock Is this a current diagnosis for this admission?: Yes (6) UTI due to extended-spectrum beta lactamase (ESBL) producing Escherichia coli Is this a current diagnosis for this admission?: Yes (7) Anemia in chronic kidney disease Is this a current diagnosis for this admission?: YesPlan: On erythropoietin. Monitor.
--- NOTE | 2017-01-17 14:30 | ST Inp Modified Barium Swallow ---
Medical Diagnosis - Medical Diagnoses Medical Diagnosis Description & ICD-10 Code(s): fall, UTI - ICD-10 Tx Diagnosis Coding (1) Metabolic encephalopathy ICD-10 Code(s): G93.41 - METABOLIC ENCEPHALOPATHY (2) Septic shock ICD-10 Code(s): A41.9 - SEPSIS, UNSPECIFIED ORGANISM R65.21 - SEVERE SEPSIS WITH SEPTIC SHOCK (3) Severe persistent allergic asthma with acute exacerbation ICD-10 Code(s): J45.51 - SEVERE PERSISTENT ASTHMA WITH (ACUTE) EXACERBATION (5) Dysphagia ICD-10 Code(s): R13.10 - DYSPHAGIA, UNSPECIFIED (6) End-stage renal disease on hemodialysis ICD-10 Code(s): N18.6 - END STAGE RENAL DISEASE Z99.2 - DEPENDENCE ON RENAL DIALYSIS ST Inpatient MBS - General Date: 01/17/17 Date of Onset: 01/01/17 - History History Obtained From: Other - EMR -: Medical - ST reviewed physician's notes. Significant for admission on with UTI due to ESBL, metabolic encephalopathy, end stage renal disease on hemodialysis, dementia, severe persistent allergic asthma with acute exacerbation, contusions to face, hypoglycemia, and septic shock. Per ST evaluation: Pt on mechanical vent from 01/10/17-01/12/17. Pt using non-invasive mechanical vent, able to tolerate mask off for periods of time per RN. Chest x- ray shows cardiomegaly and mild central vascular congestion, low lung volumes with small bilateral pleural effusions and bibasilar airspace opacities may represent atelectasis or PNA. Head CT- no intracranial hemorrhage or fracture, frontal soft swelling. PMHx: CHF, HTN, CAD, HLD, asthma, bronchitis, COPD, PNA, sleep apnea, diabetes, ESRD, arthritis, dementia, anemia. ST performed bedside swallow evaluation 01/17/17. Concerns for delayed cough after PO. Medications: Medications Reviewed Allergies: Refer to medical record - Subjective Current Nutritional Means: PO - thin & puree Pain: 0/5 - Objective Assessment: Upright, Left Lateral - Food Trials Food Trials Used: Thin liquids, Pureed The Patient: fed by ST, via cup, via spoon - Assessment Labial Function: Impaired Lingual Function: Impaired Mandibular Function: Impaired Dentition: Edentulous Velo-Pharyngeal Function: Not assessed Laryngeal Function: hoarse - Pharyngeal Stage Initiation of Pharyngeal Stage: Delayed Decreased Laryngeal Elevation: No Reduced Velo-Pharyngeal Closure: no Reduced Pressure Generation: Yes Reduced Tongue Base Retraction: Yes Pre-Swallowing Pooling in Valleculae: None Pre-Swallowing Pooling in Pyriforms: None Reduced Thyro-Hyiod Approximation: Yes Reduced Epiglottic Excursion: Yes Reduced Pharyngeal Peristalsis: Yes Multiple Swallows With: Effective Post Swallow Residuals in Valleculae: None Post Swallow Residuals in Pyriforms: None - Impression/Summary Laryngeal Penetration: No Tracheal Aspiration: no Patient Presents With: Oral stage dysphagia, Oral-Pharyngeal dysph., Mild- Moderate Risk of Aspiration: Severe - high risk for aspiration due to respiratory status , mental status; unable to self feed, difficulty with positioning, dependent for oral care Risk of Nutritional Compromise: Severe - due to weakness, decreased alertness - may not be able to sustain nutrition on PO - Recommendations NPO: no Solid Diet Recommendations: Pureed Liquid Diet Recommendations: Thin Regular Diet: No Strict Aspitarion Precautions: Yes Dysphagia Therapy with HOP SORTER: No Recommended Techniques: Fully Upright During Meal, Med Crushed in Applesauce, Small Bites and Sips, Alternate Bites/Sips Supervision: Constant, requires assistance Other Recommendations: ST completed MBSS. Patient observed to have moderate oral stage dysphagia resulting in difficulty transferring bolus, but no aspiration or penetration. Patient noted to have consistent chin down posture, which may be aiding in airway protection. Recommend continue current diet of thin liquids with purees. Do recommend assistance with meals as patient unable to feed self and will require cues to maintain alertness. Feed only small bites & sips, no straws, with slow rate of intake and alternating bites and sips. ST to sign off at this time as patient is not a candidate for skilled interventions. - Time Total Time: 10 Total Timed Minutes: 0
--- NOTE | 2017-01-17 15:41 | PDOC PROGRESS REPORT ---
Subjective Progress Note for:: 01/16/17 Subjective:: Awake but disoriented Physical Exam Vital Signs: Temp Pulse Resp BP Pulse Ox 98.2 F 96 20 152/122 H 100 01/15/17 18:00 01/16/17 07:45 01/16/17 07:45 01/16/17 05:42 01/16/17 07:45 Intake & Output 01/15/17 01/16/17 01/17/17 06:59 06:59 06:59 Intake Total 497 463 Output Total 295 1608 Balance 202 -1145 Weight 74.5 kg 74.1 kg General appearance: PRESENT: no acute distress, disheveled, obese Head exam: PRESENT: atraumatic, normocephalic Eye exam: PRESENT: conjunctiva pale, EOMI Mouth exam: PRESENT: dry mucosa Neck exam: ABSENT: carotid bruit, JVD, lymphadenopathy, thyromegaly Respiratory exam: PRESENT: decreased breath sounds, prolonged expiratory phas, rhonchi, symmetrical, unlabored Cardiovascular exam: PRESENT: irregular rhythm Pulses: PRESENT: normal radial pulses GI/Abdominal exam: PRESENT: normal bowel sounds, soft. ABSENT: distended, guarding, mass, organolmegaly, rebound, tenderness Rectal exam: PRESENT: deferred Gentrourinary exam: PRESENT: indwelling catheter Musculoskeletal exam: PRESENT: normal inspection Neurological exam: PRESENT: awake Skin exam: PRESENT: dry, warm Results Laboratory Results: 01/15/17 13:20 WBC 7.1 RBC 3.20 L Hgb 9.0 L Hct 26.4 L MCV 83 MCH 28.1 MCHC 34.1 RDW 15.9 H Plt Count 213 Seg Neutrophils % 75.7 Lymphocytes % 13.6 Monocytes % 9.3 Eosinophils % 0.7 Basophils % 0.7 Absolute Neutrophils 5.3 Absolute Lymphocytes 1.0 Absolute Monocytes 0.7 Absolute Eosinophils 0.1 Absolute Basophils 0.0 01/01/17 01/01/17 01/02/17 23:20 23:20 06:07 Creatine Kinase 23 L 22 L CK-MB (CK-2) 0.36 Troponin I < 0.012 NT-Pro-B Natriuret Pep 01/02/17 01/04/17 06:07 05:45 Creatine Kinase CK-MB (CK-2) 0.47 Troponin I < 0.012 NT-Pro-B Natriuret Pep 58600 H Impressions: Cervical Spine CT 01/01/17 08:43 IMPRESSION: Considerable motion artifact. No fracture identified. If clinical suspicion of fracture persists, repeat imaging when the patient is more stable is recommended. Head CT 01/01/17 08:43 IMPRESSION: No visualized intracranial hemorrhage or fracture. Frontal soft tissue swelling. Significant patient motion limits evaluation of the lower cerebrum, skullbase and posterior fossa. Repeat exam recommended if there is high clinical suspicion. Hip X-Ray 01/01/17 08:43 IMPRESSION: No acute finding. Chest X-Ray 01/13/17 06:00 IMPRESSION: Cardiomegaly and mild central vascular congestion. Low lung volumes with small bilateral pleural effusions and bibasilar airspace opacities, may represent atelectasis or pneumonia. Assessment & Plan - Diagnosis (1) Dementia Is this a current diagnosis for this admission?: Yes (2) End-stage renal disease on hemodialysis Is this a current diagnosis for this admission?: Yes (3) Respiratory failure Qualifiers: Chronicity: acute Is this a current diagnosis for this admission?: Yes (4) Septic shock Is this a current diagnosis for this admission?: No - Time Critical Time spent with patient: 35 or more minutes - 35 minutes
--- NOTE | 2017-01-17 15:43 | PDOC PROGRESS REPORT ---
Subjective Progress Note for:: 01/17/17 Subjective:: Awake but disoriented Physical Exam Vital Signs: Temp Pulse Resp BP Pulse Ox 99.3 F 83 20 138/81 H 100 01/17/17 08:00 01/17/17 08:03 01/17/17 08:03 01/17/17 08:00 01/17/17 08:03 Intake & Output 01/16/17 01/17/17 01/18/17 06:59 06:59 06:59 Intake Total 463 487 Output Total 1608 165 25 Balance -1145 322 -25 Weight 74.1 kg 75.5 kg General appearance: PRESENT: no acute distress, disheveled, obese Head exam: PRESENT: atraumatic, normocephalic Eye exam: PRESENT: conjunctiva pale, EOMI Mouth exam: PRESENT: dry mucosa, neck supple Neck exam: PRESENT: carotid bruit Respiratory exam: PRESENT: decreased breath sounds, prolonged expiratory phas, rhonchi, symmetrical, unlabored, other - Reliant on trilogy ventilator for adequate ventilation Cardiovascular exam: PRESENT: irregular rhythm Pulses: PRESENT: normal radial pulses GI/Abdominal exam: PRESENT: normal bowel sounds, soft. ABSENT: distended, guarding, mass, organolmegaly, rebound, tenderness Rectal exam: PRESENT: deferred Gentrourinary exam: PRESENT: indwelling catheter Musculoskeletal exam: PRESENT: normal inspection Neurological exam: PRESENT: awake Skin exam: PRESENT: dry, warm Results Laboratory Results: 01/17/17 04:30 01/17/17 04:30 01/16/17 01/16/17 01/17/17 09:33 09:33 04:30 WBC 5.8 RBC 3.13 L Hgb 8.6 L Hct 26.1 L MCV 83 MCH 27.5 MCHC 33.0 RDW 16.1 H Plt Count 224 Seg Neutrophils % 70.6 Lymphocytes % 16.5 Monocytes % 11.4 Eosinophils % 0.6 Basophils % 0.9 Absolute Neutrophils 4.1 Absolute Lymphocytes 1.0 Absolute Monocytes 0.7 Absolute Eosinophils 0.0 Absolute Basophils 0.1 Sodium 143.7 147.4 H Potassium 3.5 L 3.0 L* Chloride 106 108 H Carbon Dioxide 26 25 Anion Gap 12 14 BUN 21 H 21 H Creatinine 2.92 H 4.01 H Est GFR ( Amer) 18 L 13 L Est GFR (Non-Af Amer) 15 L 11 L Glucose 121 H 119 H Calcium 8.0 L 8.1 L Phosphorus 1.6 L 01/17/17 04:30 WBC 5.0 RBC 3.03 L Hgb 8.5 L Hct 24.9 L MCV 82 MCH 28.0 MCHC 34.0 RDW 15.7 H Plt Count 231 Seg Neutrophils % 63.2 Lymphocytes % 19.4 Monocytes % 15.6 H Eosinophils % 1.1 Basophils % 0.7 Absolute Neutrophils 3.2 Absolute Lymphocytes 1.0 Absolute Monocytes 0.8 Absolute Eosinophils 0.1 Absolute Basophils 0.0 Sodium Potassium Chloride Carbon Dioxide Anion Gap BUN Creatinine Est GFR ( Amer) Est GFR (Non-Af Amer) Glucose Calcium Phosphorus 01/01/17 01/01/17 01/02/17 23:20 23:20 06:07 Creatine Kinase 23 L 22 L CK-MB (CK-2) 0.36 Troponin I < 0.012 NT-Pro-B Natriuret Pep 01/02/17 01/04/17 06:07 05:45 Creatine Kinase CK-MB (CK-2) 0.47 Troponin I < 0.012 NT-Pro-B Natriuret Pep [id number] H Impressions: Cervical Spine CT 01/01/17 08:43 IMPRESSION: Considerable motion artifact. No fracture identified. If clinical suspicion of fracture persists, repeat imaging when the patient is more stable is recommended. Head CT 01/01/17 08:43 IMPRESSION: No visualized intracranial hemorrhage or fracture. Frontal soft tissue swelling. Significant patient motion limits evaluation of the lower cerebrum, skullbase and posterior fossa. Repeat exam recommended if there is high clinical suspicion. Hip X-Ray 01/01/17 08:43 IMPRESSION: No acute finding. Chest X-Ray 01/13/17 06:00 IMPRESSION: Cardiomegaly and mild central vascular congestion. Low lung volumes with small bilateral pleural effusions and bibasilar airspace opacities, may represent atelectasis or pneumonia. Assessment & Plan - Diagnosis (1) Dementia Is this a current diagnosis for this admission?: Yes (2) End-stage renal disease on hemodialysis Is this a current diagnosis for this admission?: Yes (3) Respiratory failure Qualifiers: Chronicity: acute Is this a current diagnosis for this admission?: Yes (4) Septic shock Is this a current diagnosis for this admission?: Yes - Time Critical Time spent with patient: 25-34 minutes
[2017-01-17] MEDS: ASPIRIN 81 MG TABLET, CHEWABLE PO SCH (17:31)
[2017-01-17] MEDS: CETIRIZINE HCL ORAL SOLN 5 MG/5 ML UDCUP PO SCH (17:43)
[2017-01-17] MEDS: FOLIC ACID/VITAMIN B COMP W-C CAPSULE PO SCH (17:43)
[2017-01-17] MEDS: CITALOPRAM HYDROBROMIDE 20 MG TABLET PO SCH (17:43)
[2017-01-17] MEDS: DOCUSATE SODIUM 100 MG CAPSULE PO SCH (17:43)
[2017-01-17 19:33] LABS: ANION GAP 15 (5-19); BLOOD UREA NITROGEN 10 mg/dL (7-20); CALCIUM 7.7 mg/dL (8.4-10.2); CARBON DIOXIDE 27 mmol/L (22-30); CHLORIDE 102 mmol/L (98-107); CREATININE RESULT 2.21 mg/dL (0.52-1.25); GLUCOSE 97 mg/dL (75-110); SODIUM 143.8 mmol/L (137-145)
[2017-01-17 19:44] LABS: PHOSPHORUS 8.8 mg/dL (2.5-4.5); POTASSIUM 5.7 mmol/L (3.6-5.0)
--- NOTE | 2017-01-17 20:24 | PDOC PROGRESS REPORT ---
Subjective Progress Note for:: 01/17/17 Subjective:: She was seen by the bedside she is on BiPAP, she is not eating, she is a DNR status prognosis is very poor Physical Exam Vital Signs: Temp Pulse Resp BP Pulse Ox 98.8 F 80 18 108/52 L 100 01/17/17 12:00 01/17/17 19:41 01/17/17 19:41 01/17/17 13:45 01/17/17 19:41 Intake & Output 01/16/17 01/17/17 01/18/17 06:59 06:59 06:59 Intake Total 463 487 30 Output Total 6500 660 4712 Balance -1145 322 -1520 Weight 74.1 kg 75.5 kg General appearance: PRESENT: mild distress Eye exam: PRESENT: PERRLA Respiratory exam: PRESENT: crackles Cardiovascular exam: PRESENT: +S1, +S2 Results Laboratory Results: 01/17/17 04:30 01/17/17 18:43 01/17/17 01/17/17 01/17/17 04:30 04:30 18:43 WBC 5.0 RBC 3.03 L Hgb 8.5 L Hct 24.9 L MCV 82 MCH 28.0 MCHC 34.0 RDW 15.7 H Plt Count 231 Seg Neutrophils % 63.2 Lymphocytes % 19.4 Monocytes % 15.6 H Eosinophils % 1.1 Basophils % 0.7 Absolute Neutrophils 3.2 Absolute Lymphocytes 1.0 Absolute Monocytes 0.8 Absolute Eosinophils 0.1 Absolute Basophils 0.0 Sodium 147.4 H 143.8 Potassium 3.0 L* 5.7 H D Chloride 108 H 102 Carbon Dioxide 25 27 Anion Gap 14 15 BUN 21 H 10 Creatinine 4.01 H 2.21 H Est GFR ( Amer) 13 L 25 L Est GFR (Non-Af Amer) 11 L 21 L Glucose 119 H 97 Calcium 8.1 L 7.7 L Phosphorus 1.6 L 8.8 H D 01/01/17 01/01/17 01/02/17 23:20 23:20 06:07 Creatine Kinase 23 L 22 L CK-MB (CK-2) 0.36 Troponin I < 0.012 NT-Pro-B Natriuret Pep 01/02/17 01/04/17 06:07 05:45 Creatine Kinase CK-MB (CK-2) 0.47 Troponin I < 0.012 NT-Pro-B Natriuret Pep 97056 H Impressions: Cervical Spine CT 01/01/17 08:43 IMPRESSION: Considerable motion artifact. No fracture identified. If clinical suspicion of fracture persists, repeat imaging when the patient is more stable is recommended. Head CT 01/01/17 08:43 IMPRESSION: No visualized intracranial hemorrhage or fracture. Frontal soft tissue swelling. Significant patient motion limits evaluation of the lower cerebrum, skullbase and posterior fossa. Repeat exam recommended if there is high clinical suspicion. Hip X-Ray 01/01/17 08:43 IMPRESSION: No acute finding. Chest X-Ray 01/13/17 06:00 IMPRESSION: Cardiomegaly and mild central vascular congestion. Low lung volumes with small bilateral pleural effusions and bibasilar airspace opacities, may represent atelectasis or pneumonia. Modified Barium Swallow 01/17/17 00:00 IMPRESSION: NO EVIDENCE OF PENETRATION OR ASPIRATIONPLEASE SEE SPEECH PATHOLOGIST REPORT FOR OTHER FINDINGS AND RECOMMENDATIONS. Assessment & Plan - Diagnosis (1) Urinary tract infection Qualifiers: Urinary tract infection type: site unspecified Hematuria presence: without hematuria Qualified Code(s): N39.0 - Urinary tract infection, site not specified Is this a current diagnosis for this admission?: Yes (2) Metabolic encephalopathy Is this a current diagnosis for this admission?: Yes (3) Severe persistent allergic asthma with acute exacerbation Is this a current diagnosis for this admission?: Yes (4) End-stage renal disease on hemodialysis Is this a current diagnosis for this admission?: Yes (5) Hypoglycemia Is this a current diagnosis for this admission?: Yes (6) Contusion of face Qualifiers: Encounter type: initial encounter Qualified Code(s): S00.83XA - Contusion of other part of head, initial encounter Is this a current diagnosis for this admission?: Yes (7) Septic shock Is this a current diagnosis for this admission?: Yes (8) UTI due to extended-spectrum beta lactamase (ESBL) producing Escherichia coli Is this a current diagnosis for this admission?: Yes (9) Septic shock Is this a current diagnosis for this admission?: Yes
[2017-01-17] MEDS: MIRTAZAPINE 15 MG TABLET PO SCH (23:19)
[2017-01-18] MEDS: LEVALBUTEROL HCL NEB 1.25 MG/3 ML AMPUL NEB SCH ×3 (01:03→16:01)
[2017-01-18 02:09] LABS: ANION GAP 16 (5-19); BLOOD UREA NITROGEN 12 mg/dL (7-20); CALCIUM 7.3 mg/dL (8.4-10.2); CARBON DIOXIDE 25 mmol/L (22-30); CHLORIDE 106 mmol/L (98-107); CREATININE RESULT 2.84 mg/dL (0.52-1.25); GLUCOSE 106 mg/dL (75-110); POTASSIUM 4.8 mmol/L (3.6-5.0); SODIUM 146.6 mmol/L (137-145)
[2017-01-18] MEDS: HEPARIN SOD (PORCINE) 5,000 UNIT/ML 1 ML SYRINGE SUBCUT SCH ×3 (05:41→23:05)
[2017-01-18] MEDS: BUDESONIDE NEB 0.5 MG/2 ML AMPUL NEB SCH ×2 (07:49→19:48)
[2017-01-18 09:05] LABS: ANION GAP 15 (5-19); BLOOD UREA NITROGEN 13 mg/dL (7-20); CALCIUM 7.2 mg/dL (8.4-10.2); CARBON DIOXIDE 25 mmol/L (22-30); CHLORIDE 106 mmol/L (98-107); CREATININE RESULT 3.38 mg/dL (0.52-1.25); GLUCOSE 109 mg/dL (75-110); POTASSIUM 4.3 mmol/L (3.6-5.0); SODIUM 146.4 mmol/L (137-145)
[2017-01-18 09:44] LABS: PHOSPHORUS 4.6 mg/dL (2.5-4.5)
--- NOTE | 2017-01-18 10:13 | PDOC PROGRESS REPORT ---
Subjective Progress Note for:: 01/18/17 Subjective:: Remain on BiPAP support. Baseline dementia limited her contribution to medical history. No reported fever. P.O intake remain poor. Overall prognosis is poor due to her comorbidities. Physical Exam Vital Signs: Temp Pulse Resp BP Pulse Ox 99.2 F 88 22 H 149/52 H 100 01/18/17 07:35 01/18/17 07:35 01/18/17 07:35 01/18/17 07:35 01/18/17 03:50 Intake & Output 01/17/17 01/18/17 01/19/17 06:59 06:59 06:59 Intake Total 487 65 Output Total 165 2195 Balance 322 -2130 Weight 75.5 kg 76.9 kg General appearance: PRESENT: cooperative, obese Eye exam: PRESENT: conjunctiva pink, EOMI, PERRLA. ABSENT: scleral icterus Mouth exam: PRESENT: moist Respiratory exam: PRESENT: clear to auscultation kennedi, decreased breath sounds - at lung bases Cardiovascular exam: PRESENT: RRR. ABSENT: diastolic murmur, rubs, systolic murmur GI/Abdominal exam: PRESENT: normal bowel sounds, soft. ABSENT: distended, guarding, mass, organolmegaly, rebound, tenderness Musculoskeletal exam: PRESENT: deformity - related to joints involvement with arthritis Neurological exam: PRESENT: awake - but disoriented x 4 Psychiatric exam: PRESENT: appropriate affect Skin exam: PRESENT: dry, warm Results Laboratory Results: 01/17/17 04:30 01/18/17 08:20 01/17/17 01/18/17 01/18/17 18:43 01:32 08:20 Sodium 143.8 146.6 H 146.4 H Potassium 5.7 H D 4.8 4.3 Chloride 102 106 106 Carbon Dioxide 27 25 25 Anion Gap 15 16 15 BUN 10 12 13 Creatinine 2.21 H 2.84 H 3.38 H Est GFR ( Amer) 25 L 19 L 16 L Est GFR (Non-Af Amer) 21 L 16 L 13 L Glucose 97 106 109 Calcium 7.7 L 7.3 L 7.2 L Phosphorus 8.8 H D 4.6 H D 01/01/17 01/01/17 01/02/17 23:20 23:20 06:07 Creatine Kinase 23 L 22 L CK-MB (CK-2) 0.36 Troponin I < 0.012 NT-Pro-B Natriuret Pep 01/02/17 01/04/17 06:07 05:45 Creatine Kinase CK-MB (CK-2) 0.47 Troponin I < 0.012 NT-Pro-B Natriuret Pep 72406 H Impressions: Cervical Spine CT 01/01/17 08:43 IMPRESSION: Considerable motion artifact. No fracture identified. If clinical suspicion of fracture persists, repeat imaging when the patient is more stable is recommended. Head CT 01/01/17 08:43 IMPRESSION: No visualized intracranial hemorrhage or fracture. Frontal soft tissue swelling. Significant patient motion limits evaluation of the lower cerebrum, skullbase and posterior fossa. Repeat exam recommended if there is high clinical suspicion. Hip X-Ray 01/01/17 08:43 IMPRESSION: No acute finding. Chest X-Ray 01/13/17 06:00 IMPRESSION: Cardiomegaly and mild central vascular congestion. Low lung volumes with small bilateral pleural effusions and bibasilar airspace opacities, may represent atelectasis or pneumonia. Modified Barium Swallow 01/17/17 00:00 IMPRESSION: NO EVIDENCE OF PENETRATION OR ASPIRATIONPLEASE SEE SPEECH PATHOLOGIST REPORT FOR OTHER FINDINGS AND RECOMMENDATIONS. Assessment & Plan - Diagnosis (1) Dementia Is this a current diagnosis for this admission?: YesPlan: See covering attending physician orders (2) End-stage renal disease on hemodialysis Is this a current diagnosis for this admission?: YesPlan: See covering attending physician orders (3) Metabolic encephalopathy Is this a current diagnosis for this admission?: YesPlan: See covering attending physician orders (4) UTI (urinary tract infection) Qualifiers: Urinary tract infection type: site unspecified Hematuria presence: with hematuria Qualified Code(s): N39.0 - Urinary tract infection, site not specified Is this a current diagnosis for this admission?: YesPlan: See covering attending physician orders - Time Time Spent with patient: 25-34 minutes Medications reviewed and adjusted accordingly: Yes Anticipated discharge: SNF Within: Other - Inpatient Certification Based on my medical assessment, after consideration of the patient's comorbidities, presenting symptoms, or acuity I expect that the services needed warrant INPATIENT care.: Yes I certify that my determination is in accordance with my understanding of Medicare's requirements for reasonable and necessary INPATIENT services [42 CFR 412.3e].: Yes Medical Necessity: Need Close Monitoring Due to Risk of Patient Decompensation, Need For IV Fluids, Need For Continuous Telemetry Monitoring, Risk of Complication if Not Cared For in Hospital Post Hospital Care: D/C or Transfer Summary - Plan Summary Plan Summary: See covering attending physician orders
[2017-01-18] MEDS: CARVEDILOL 12.5 MG TABLET PO SCH (14:37)
[2017-01-18] MEDS: LANSOPRAZOLE 15 MG TAB.RAP.DR PO SCH (14:37)
[2017-01-18] MEDS: SITAGLIPTIN PHOSPHATE 25 MG TABLET PO SCH (14:37)
[2017-01-18] MEDS: FUROSEMIDE 40 MG TABLET PO SCH ×2 (14:37→19:54)
[2017-01-18] MEDS: LACTOBACILLUS ACIDOPHILUS 250 MG TAB PO SCH ×2 (14:37→19:54)
[2017-01-18] MEDS: METOPROLOL TARTRATE PF/INJ 5 MG/5 ML SDV IV SCH ×2 (14:43→23:05)
[2017-01-18] MEDS: FLUTICASONE NASAL SPRAY 50 MCG/SPRY 120 SPRAY/16 GM NAREB SCH ×2 (14:43→23:06)
[2017-01-18] MEDS: TIMOLOL MALEATE 0.5% OPH SOLN 5 ML OU SCH ×2 (14:44→23:05)
[2017-01-18 17:35] LABS: ANION GAP 17 (5-19); BLOOD UREA NITROGEN 14 mg/dL (7-20); CALCIUM 7.3 mg/dL (8.4-10.2); CARBON DIOXIDE 25 mmol/L (22-30); CHLORIDE 106 mmol/L (98-107); GLUCOSE 129 mg/dL (75-110); PHOSPHORUS 4.5 mg/dL (2.5-4.5); SODIUM 147.6 mmol/L (137-145)
[2017-01-18] MEDS ORDERED: DEXTROSE 5%-NORMAL SALINE 1,000 ML IV PRN (19:46)
[2017-01-18] MEDS: ASPIRIN 81 MG TABLET, CHEWABLE PO SCH (19:54)
[2017-01-18] MEDS: FOLIC ACID/VITAMIN B COMP W-C CAPSULE PO SCH (19:54)
[2017-01-18] MEDS: CETIRIZINE HCL ORAL SOLN 5 MG/5 ML UDCUP PO SCH (19:54)
[2017-01-18] MEDS: CITALOPRAM HYDROBROMIDE 20 MG TABLET PO SCH (19:54)
[2017-01-18] MEDS: DOCUSATE SODIUM 100 MG CAPSULE PO SCH (19:54)
[2017-01-19] MEDS: LEVALBUTEROL HCL NEB 1.25 MG/3 ML AMPUL NEB SCH ×3 (00:02→15:58)
[2017-01-19] MEDS: HEPARIN SOD (PORCINE) 5,000 UNIT/ML 1 ML SYRINGE SUBCUT SCH ×3 (05:09→23:27)
[2017-01-19] MEDS: BUDESONIDE NEB 0.5 MG/2 ML AMPUL NEB SCH ×2 (08:01→19:32)
[2017-01-19] MEDS: LANSOPRAZOLE 15 MG TAB.RAP.DR PO SCH (08:43)
[2017-01-19] MEDS: LACTOBACILLUS ACIDOPHILUS 250 MG TAB PO SCH ×2 (08:43→17:51)
[2017-01-19] MEDS: ACETAMINOPHEN 325 MG TABLET PO PRN ×2 (08:43→17:46)
[2017-01-19] MEDS: CARVEDILOL 12.5 MG TABLET PO SCH ×3 (08:43→23:39)
--- NOTE | 2017-01-19 09:40 | PDOC PROGRESS REPORT ---
Subjective Progress Note for:: 01/19/17 Subjective:: Patient is currently off BiPAP support. Remain on supplemental oxygen via nasal canula. Grand daughters at bed side reported satisfactory oral food intake with feeding assistance. No reported fever. Overall prognosis is remain poor due to her comorbidities. Physical Exam Vital Signs: Temp Pulse Resp BP Pulse Ox 98.3 F 82 16 138/56 H 100 01/19/17 08:00 01/19/17 08:00 01/19/17 08:00 01/19/17 08:00 01/19/17 08:00 Intake & Output 01/18/17 01/19/17 01/20/17 06:59 06:59 06:59 Intake Total 65 600 Output Total 2195 150 Balance -2130 450 Weight 76.9 kg 79.1 kg Physical Exam: General appearance: PRESENT: cooperative, obese Eye exam: PRESENT: conjunctiva pink, EOMI, PERRLA. ABSENT: scleral icterus Mouth exam: PRESENT: moist Respiratory exam: PRESENT: clear to auscultation kennedi, decreased breath sounds - at lung bases Cardiovascular exam: PRESENT: RRR. ABSENT: diastolic murmur, rubs, systolic murmur GI/Abdominal exam: PRESENT: normal bowel sounds, soft. ABSENT: distended, guarding, mass, organomegaly, rebound, tenderness Musculoskeletal exam: PRESENT: deformity - related to joints involvement with arthritis Neurological exam: PRESENT: awake - but disoriented x 4 Psychiatric exam: PRESENT: appropriate affect Skin exam: PRESENT: dry, warm Results Laboratory Results: 01/17/17 04:30 01/18/17 16:59 01/18/17 01/18/17 08:20 16:59 Sodium 146.4 H 147.6 H Potassium 4.3 4.0 Chloride 106 106 Carbon Dioxide 25 25 Anion Gap 15 17 BUN 13 14 Creatinine 3.38 H 3.60 H Est GFR ( Amer) 16 L 14 L Est GFR (Non-Af Amer) 13 L 12 L Glucose 109 129 H Calcium 7.2 L 7.3 L Phosphorus 4.6 H D 4.5 01/01/17 01/01/17 01/02/17 23:20 23:20 06:07 Creatine Kinase 23 L 22 L CK-MB (CK-2) 0.36 Troponin I < 0.012 NT-Pro-B Natriuret Pep 01/02/17 01/04/17 06:07 05:45 Creatine Kinase CK-MB (CK-2) 0.47 Troponin I < 0.012 NT-Pro-B Natriuret Pep 43281 H Impressions: Cervical Spine CT 01/01/17 08:43 IMPRESSION: Considerable motion artifact. No fracture identified. If clinical suspicion of fracture persists, repeat imaging when the patient is more stable is recommended. Head CT 01/01/17 08:43 IMPRESSION: No visualized intracranial hemorrhage or fracture. Frontal soft tissue swelling. Significant patient motion limits evaluation of the lower cerebrum, skullbase and posterior fossa. Repeat exam recommended if there is high clinical suspicion. Hip X-Ray 01/01/17 08:43 IMPRESSION: No acute finding. Chest X-Ray 01/13/17 06:00 IMPRESSION: Cardiomegaly and mild central vascular congestion. Low lung volumes with small bilateral pleural effusions and bibasilar airspace opacities, may represent atelectasis or pneumonia. Modified Barium Swallow 01/17/17 00:00 IMPRESSION: NO EVIDENCE OF PENETRATION OR ASPIRATIONPLEASE SEE SPEECH PATHOLOGIST REPORT FOR OTHER FINDINGS AND RECOMMENDATIONS. Assessment & Plan - Diagnosis (1) Dementia Is this a current diagnosis for this admission?: YesPlan: See covering attending physician orders (2) End-stage renal disease on hemodialysis Is this a current diagnosis for this admission?: YesPlan: See covering attending physician orders (3) Metabolic encephalopathy Is this a current diagnosis for this admission?: YesPlan: See covering attending physician orders (4) UTI (urinary tract infection) Qualifiers: Urinary tract infection type: site unspecified Hematuria presence: with hematuria Qualified Code(s): N39.0 - Urinary tract infection, site not specified Is this a current diagnosis for this admission?: YesPlan: See covering attending physician orders - Time Time Spent with patient: 25-34 minutes Medications reviewed and adjusted accordingly: Yes Anticipated discharge: SNF Within: Other - Inpatient Certification Based on my medical assessment, after consideration of the patient's comorbidities, presenting symptoms, or acuity I expect that the services needed warrant INPATIENT care.: Yes I certify that my determination is in accordance with my understanding of Medicare's requirements for reasonable and necessary INPATIENT services [42 CFR 412.3e].: Yes Medical Necessity: Need Close Monitoring Due to Risk of Patient Decompensation, Need For IV Fluids, Need For Continuous Telemetry Monitoring, Need for IV Antibiotics, Risk of Complication if Not Cared For in Hospital Post Hospital Care: D/C or Transfer Summary - Plan Summary Plan Summary: See covering attending physician orders.
[2017-01-19] MEDS: FUROSEMIDE 40 MG TABLET PO SCH ×2 (12:03→17:50)
[2017-01-19] MEDS: SITAGLIPTIN PHOSPHATE 25 MG TABLET PO SCH (12:03)
[2017-01-19] MEDS: FLUTICASONE NASAL SPRAY 50 MCG/SPRY 120 SPRAY/16 GM NAREB SCH ×2 (12:07→23:28)
[2017-01-19] MEDS: TIMOLOL MALEATE 0.5% OPH SOLN 5 ML OU SCH ×2 (12:07→23:27)
[2017-01-19] MEDS: INSULIN LISPRO 100 UNIT/ML 3 ML VIAL SUBCUT PRN ×2 (12:07→23:27)
[2017-01-19] MEDS: METOPROLOL TARTRATE PF/INJ 5 MG/5 ML SDV IV SCH ×2 (17:41→23:31)
[2017-01-19] MEDS: CITALOPRAM HYDROBROMIDE 20 MG TABLET PO SCH (17:46)
[2017-01-19] MEDS: FOLIC ACID/VITAMIN B COMP W-C CAPSULE PO SCH (17:46)
[2017-01-19] MEDS: ASPIRIN 81 MG TABLET, CHEWABLE PO SCH (17:46)
[2017-01-19] MEDS: CETIRIZINE HCL ORAL SOLN 5 MG/5 ML UDCUP PO SCH (17:50)
[2017-01-19] MEDS: DOCUSATE SODIUM 100 MG CAPSULE PO SCH (17:52)
[2017-01-19] MEDS: MIRTAZAPINE 15 MG TABLET PO SCH ×2 (23:28)
[2017-01-20] MEDS: LEVALBUTEROL HCL NEB 1.25 MG/3 ML AMPUL NEB SCH ×4 (00:10→23:37)
[2017-01-20 06:32] LABS: ABSOLUTE EOSINOPHILS # (AUTO) 0.3 10^3/uL (0.0-0.6); ABSOLUTE LYMPHOCYTES (AUTO) 0.9 10^3/uL (0.5-4.7); ABSOLUTE MONOCYTES (AUTO) 0.8 10^3/uL (0.1-1.4); ABSOLUTE NEUT (AUTO) 5.8 10^3/uL (1.7-8.2); BASOPHILS % (AUTO) 0.5 % (0-2); EOSINOPHILS % (AUTO) 3.8 % (0-6); HEMATOCRIT 25.6 % (36.0-47.0); HEMOGLOBIN 8.2 g/dL (12.0-15.5); LYMPHOCYTES % (AUTO) 11.9 % (13-45); MEAN CORPUSCULAR HEMOGLOBIN 26.8 pg (27.0-33.4); MEAN CORPUSCULAR VOLUME 84 fl (80-97); MONOCYTES % (AUTO) 9.9 % (3-13); RED BLOOD COUNT 3.05 10^6/uL (3.72-5.28); RED CELL DISTRIBUTION WIDTH 16.3 % (11.5-14.0); SEGMENTED NEUTROPHILS % (AUTO) 73.9 % (42-78); WHITE BLOOD COUNT 7.9 10^3/uL (4.0-10.5)
[2017-01-20] MEDS: HEPARIN SOD (PORCINE) 5,000 UNIT/ML 1 ML SYRINGE SUBCUT SCH ×2 (06:39→15:06)
[2017-01-20 06:55] LABS: ALANINE AMINOTRANSFERASE 22 U/L (9-52); ALBUMIN 2.2 g/dL (3.5-5.0); ALKALINE PHOSPHATASE 84 U/L (38-126); ANION GAP 13 (5-19); ASPARTATE AMINO TRANSFERASE 15 U/L (14-36); BILIRUBIN,DIRECT 0.4 mg/dL (0.0-0.4); BILIRUBIN,TOTAL 0.6 mg/dL (0.2-1.3); BLOOD UREA NITROGEN 17 mg/dL (7-20); CALCIUM 7.1 mg/dL (8.4-10.2); CARBON DIOXIDE 28 mmol/L (22-30); CHLORIDE 110 mmol/L (98-107); CREATININE RESULT 4.96 mg/dL (0.52-1.25); GLUCOSE 143 mg/dL (75-110); POTASSIUM 3.7 mmol/L (3.6-5.0); SODIUM 150.8 mmol/L (137-145); TOTAL PROTEIN 5.7 g/dL (6.3-8.2)
[2017-01-20] MEDS: BUDESONIDE NEB 0.5 MG/2 ML AMPUL NEB SCH ×2 (08:01→20:07)
[2017-01-20] MEDS ORDERED: EPOETIN ALFA INJ 20000 UNIT/1 ML VIAL (RENAL) IV PRN (08:54)
[2017-01-20] MEDS: FUROSEMIDE 40 MG TABLET PO SCH ×2 (11:31→17:38)
[2017-01-20] MEDS: SITAGLIPTIN PHOSPHATE 25 MG TABLET PO SCH (11:31)
[2017-01-20] MEDS: METOPROLOL TARTRATE PF/INJ 5 MG/5 ML SDV IV SCH (11:31)
[2017-01-20] MEDS: CARVEDILOL 12.5 MG TABLET PO SCH (11:31)
[2017-01-20] MEDS: LANSOPRAZOLE 15 MG TAB.RAP.DR PO SCH (11:31)
[2017-01-20] MEDS: FLUTICASONE NASAL SPRAY 50 MCG/SPRY 120 SPRAY/16 GM NAREB SCH (11:31)
[2017-01-20] MEDS: LACTOBACILLUS ACIDOPHILUS 250 MG TAB PO SCH ×2 (11:31→17:45)
[2017-01-20] MEDS: TIMOLOL MALEATE 0.5% OPH SOLN 5 ML OU SCH (11:31)
[2017-01-20] MEDS: CALCIUM ACETATE 667 MG CAPSULE PO SCH ×2 (11:52→17:38)
[2017-01-20] MEDS: ASPIRIN 81 MG TABLET, CHEWABLE PO SCH (17:38)
[2017-01-20] MEDS: DOCUSATE SODIUM 100 MG CAPSULE PO SCH (17:38)
[2017-01-20] MEDS: CETIRIZINE HCL ORAL SOLN 5 MG/5 ML UDCUP PO SCH (17:38)
[2017-01-20] MEDS: FOLIC ACID/VITAMIN B COMP W-C CAPSULE PO SCH (17:38)
[2017-01-20] MEDS: CITALOPRAM HYDROBROMIDE 20 MG TABLET PO SCH (17:45)
[2017-01-20] MEDS ORDERED: DEXTROSE 5%-WATER 1000 ML 1,000 ML IV PRN (18:26)
--- NOTE | 2017-01-20 18:34 | PDOC PROGRESS REPORT ---
Subjective Progress Note for:: 01/20/17 Subjective:: I saw the patient during dialysis this morning at around 8:25 AM. Patient is confused although she is no longer hypoxic and she is awake but not verbalizing anything. She tolerated dialysis however at the end of the treatment her system was clotting so we stopped the dialysis short of for 3 hours treatment. She does not seem to be taking much oral fluids and not eating much. She continues to be on D5 normal saline. Physical Exam Vital Signs: Temp Pulse Resp BP Pulse Ox 98.5 F 98 18 122/84 98 01/20/17 04:16 01/20/17 15:57 01/20/17 15:57 01/20/17 04:16 01/20/17 15:57 Intake & Output 01/19/17 01/20/17 01/21/17 06:59 06:59 06:59 Intake Total 600 1270 Output Total 150 200 300 Balance 450 1070 -300 Weight 79.1 kg 81.6 kg Vital signs during dialysis this morning: Blood pressure 141/52, heart rate of 84, blood flow rate of 450 mL per minute, dialysate flow rate of 600 mL per minute. Exam: General appearance: PRESENT: no acute distress, cooperative, fairly developed, fairly nourished, awake but nonverbal Head exam: PRESENT: atraumatic, normocephalic Eye exam: PRESENT: conjunctiva pink, PERRLA. ABSENT: scleral icterus Neck exam: ABSENT: JVD Respiratory exam: PRESENT: Diminished breath sounds. ABSENT: crackles, rales, rhonchi, unlabored, wheezes Cardiovascular exam: PRESENT: Regular rate rhythm -+S1, +S2. ABSENT: diastolic murmur, systolic murmur GI/Abdominal exam: PRESENT: normal bowel sounds, soft. ABSENT: guarding, mass, tenderness Extremities exam: ABSENT: No edema Neurological exam: PRESENT: alert, awake, orientation cannot be assessed at this time Skin exam: PRESENT: dry, warm, Cardiovascular exam: PRESENT: +S1, +S2 GI/Abdominal exam: PRESENT: normal bowel sounds, soft. ABSENT: distended, guarding, tenderness Results Laboratory Results: 01/20/17 05:24 01/20/17 05:24 01/20/17 01/20/17 05:24 05:24 WBC 7.9 RBC 3.05 L Hgb 8.2 L Hct 25.6 L MCV 84 MCH 26.8 L MCHC 32.0 RDW 16.3 H Plt Count 260 Seg Neutrophils % 73.9 Lymphocytes % 11.9 L Monocytes % 9.9 Eosinophils % 3.8 Basophils % 0.5 Absolute Neutrophils 5.8 Absolute Lymphocytes 0.9 Absolute Monocytes 0.8 Absolute Eosinophils 0.3 Absolute Basophils 0.0 Sodium 150.8 H Potassium 3.7 Chloride 110 H Carbon Dioxide 28 Anion Gap 13 BUN 17 Creatinine 4.96 H Est GFR ( Amer) 10 L Est GFR (Non-Af Amer) 8 L Glucose 143 H Calcium 7.1 L Total Bilirubin 0.6 AST 15 ALT 22 Alkaline Phosphatase 84 Total Protein 5.7 L Albumin 2.2 L 01/01/17 01/01/17 01/02/17 23:20 23:20 06:07 Creatine Kinase 23 L 22 L CK-MB (CK-2) 0.36 Troponin I < 0.012 NT-Pro-B Natriuret Pep 01/02/17 01/04/17 06:07 05:45 Creatine Kinase CK-MB (CK-2) 0.47 Troponin I < 0.012 NT-Pro-B Natriuret Pep 50211 H Impressions: Cervical Spine CT 01/01/17 08:43 IMPRESSION: Considerable motion artifact. No fracture identified. If clinical suspicion of fracture persists, repeat imaging when the patient is more stable is recommended. Head CT 01/01/17 08:43 IMPRESSION: No visualized intracranial hemorrhage or fracture. Frontal soft tissue swelling. Significant patient motion limits evaluation of the lower cerebrum, skullbase and posterior fossa. Repeat exam recommended if there is high clinical suspicion. Hip X-Ray 01/01/17 08:43 IMPRESSION: No acute finding. Chest X-Ray 01/13/17 06:00 IMPRESSION: Cardiomegaly and mild central vascular congestion. Low lung volumes with small bilateral pleural effusions and bibasilar airspace opacities, may represent atelectasis or pneumonia. Modified Barium Swallow 01/17/17 00:00 IMPRESSION: NO EVIDENCE OF PENETRATION OR ASPIRATIONPLEASE SEE SPEECH PATHOLOGIST REPORT FOR OTHER FINDINGS AND RECOMMENDATIONS. Assessment & Plan - Diagnosis (1) End-stage renal disease on hemodialysis Is this a current diagnosis for this admission?: YesPlan: We did dialysis today for a little less than 3 hours, using the patient's AV fistula, with 3 potassium bath, blood flow rate of or 50 mL per minute, dialysate flow rate of's 100 mL per minute, ultrafiltration 1 L, [no heparin] and Procrit with 20,000 units during dialysis intravenously. (2) Hypokalemia Is this a current diagnosis for this admission?: YesPlan: We use 3 potassium bath during dialysis. (3) UTI (urinary tract infection) Qualifiers: Urinary tract infection type: site unspecified Hematuria presence: with hematuria Qualified Code(s): N39.0 - Urinary tract infection, site not specified Is this a current diagnosis for this admission?: YesPlan: Due to ESBL Escherichia coli. This was treated with antibiotics. (4) Anemia in chronic kidney disease Is this a current diagnosis for this admission?: YesPlan: We will plan to give Procrit during dialysis when necessary. (5) Metabolic encephalopathy Is this a current diagnosis for this admission?: YesPlan: Patient is mental status seems to have gotten a little bit worse compared to last week. (6) Contusion of face Is this a current diagnosis for this admission?: YesPlan: Resolving. (7) Hypernatremia Is this a current diagnosis for this admission?: YesPlan: Due to poor water intake orally. Change IV fluids to D5 water at 50 mL an hour. - Notes Notes: Case discussed with Dr. Richardson. - Time Time with patient: 15-25 minutes
--- NOTE | 2017-01-20 19:43 | PDOC PROGRESS REPORT ---
Subjective Progress Note for:: 01/20/17 Subjective:: She is not eating or drinking Physical Exam Vital Signs: Temp Pulse Resp BP Pulse Ox 98.5 F 98 18 122/84 98 01/20/17 04:16 01/20/17 15:57 01/20/17 15:57 01/20/17 04:16 01/20/17 15:57 Intake & Output 01/19/17 01/20/17 01/21/17 06:59 06:59 06:59 Intake Total 600 1270 Output Total 150 200 300 Balance 450 1070 -300 Weight 79.1 kg 81.6 kg General appearance: PRESENT: no acute distress Eye exam: PRESENT: PERRLA Cardiovascular exam: PRESENT: +S1, +S2 Neurological exam: PRESENT: alert Results Laboratory Results: 01/20/17 05:24 01/20/17 05:24 01/20/17 01/20/17 05:24 05:24 WBC 7.9 RBC 3.05 L Hgb 8.2 L Hct 25.6 L MCV 84 MCH 26.8 L MCHC 32.0 RDW 16.3 H Plt Count 260 Seg Neutrophils % 73.9 Lymphocytes % 11.9 L Monocytes % 9.9 Eosinophils % 3.8 Basophils % 0.5 Absolute Neutrophils 5.8 Absolute Lymphocytes 0.9 Absolute Monocytes 0.8 Absolute Eosinophils 0.3 Absolute Basophils 0.0 Sodium 150.8 H Potassium 3.7 Chloride 110 H Carbon Dioxide 28 Anion Gap 13 BUN 17 Creatinine 4.96 H Est GFR ( Amer) 10 L Est GFR (Non-Af Amer) 8 L Glucose 143 H Calcium 7.1 L Total Bilirubin 0.6 AST 15 ALT 22 Alkaline Phosphatase 84 Total Protein 5.7 L Albumin 2.2 L 01/01/17 01/01/17 01/02/17 23:20 23:20 06:07 Creatine Kinase 23 L 22 L CK-MB (CK-2) 0.36 Troponin I < 0.012 NT-Pro-B Natriuret Pep 01/02/17 01/04/17 06:07 05:45 Creatine Kinase CK-MB (CK-2) 0.47 Troponin I < 0.012 NT-Pro-B Natriuret Pep 88625 H Impressions: Cervical Spine CT 01/01/17 08:43 IMPRESSION: Considerable motion artifact. No fracture identified. If clinical suspicion of fracture persists, repeat imaging when the patient is more stable is recommended. Head CT 01/01/17 08:43 IMPRESSION: No visualized intracranial hemorrhage or fracture. Frontal soft tissue swelling. Significant patient motion limits evaluation of the lower cerebrum, skullbase and posterior fossa. Repeat exam recommended if there is high clinical suspicion. Hip X-Ray 01/01/17 08:43 IMPRESSION: No acute finding. Chest X-Ray 01/13/17 06:00 IMPRESSION: Cardiomegaly and mild central vascular congestion. Low lung volumes with small bilateral pleural effusions and bibasilar airspace opacities, may represent atelectasis or pneumonia. Modified Barium Swallow 01/17/17 00:00 IMPRESSION: NO EVIDENCE OF PENETRATION OR ASPIRATIONPLEASE SEE SPEECH PATHOLOGIST REPORT FOR OTHER FINDINGS AND RECOMMENDATIONS. Assessment & Plan - Diagnosis (1) Urinary tract infection Qualifiers: Urinary tract infection type: site unspecified Hematuria presence: without hematuria Qualified Code(s): N39.0 - Urinary tract infection, site not specified Is this a current diagnosis for this admission?: Yes (2) Metabolic encephalopathy Is this a current diagnosis for this admission?: Yes (3) Severe persistent allergic asthma with acute exacerbation Is this a current diagnosis for this admission?: Yes (4) End-stage renal disease on hemodialysis Is this a current diagnosis for this admission?: Yes (5) Hypoglycemia Is this a current diagnosis for this admission?: Yes (6) Contusion of face Qualifiers: Encounter type: initial encounter Qualified Code(s): S00.83XA - Contusion of other part of head, initial encounter Is this a current diagnosis for this admission?: Yes (7) Septic shock Is this a current diagnosis for this admission?: Yes (8) UTI due to extended-spectrum beta lactamase (ESBL) producing Escherichia coli Is this a current diagnosis for this admission?: Yes (9) Septic shock Is this a current diagnosis for this admission?: Yes - Plan Summary Plan Summary: Continue treatment
[2017-01-21] MEDS: METOPROLOL TARTRATE PF/INJ 5 MG/5 ML SDV IV SCH ×2 (00:38→09:31)
[2017-01-21] MEDS: HEPARIN SOD (PORCINE) 5,000 UNIT/ML 1 ML SYRINGE SUBCUT SCH ×3 (00:38→18:07)
[2017-01-21] MEDS: FLUTICASONE NASAL SPRAY 50 MCG/SPRY 120 SPRAY/16 GM NAREB SCH ×2 (00:44→09:31)
[2017-01-21] MEDS: TIMOLOL MALEATE 0.5% OPH SOLN 5 ML OU SCH ×2 (00:44→09:31)
[2017-01-21] MEDS: CARVEDILOL 12.5 MG TABLET PO SCH ×2 (00:45→09:31)
[2017-01-21] MEDS: MIRTAZAPINE 15 MG TABLET PO SCH (00:45)
[2017-01-21] MEDS: LEVALBUTEROL HCL NEB 1.25 MG/3 ML AMPUL NEB SCH ×2 (07:34→15:36)
[2017-01-21] MEDS: BUDESONIDE NEB 0.5 MG/2 ML AMPUL NEB SCH ×2 (07:35→19:49)
[2017-01-21] MEDS: CALCIUM ACETATE 667 MG CAPSULE PO SCH ×3 (08:33→18:07)
[2017-01-21] MEDS: SITAGLIPTIN PHOSPHATE 25 MG TABLET PO SCH (09:31)
[2017-01-21] MEDS: LANSOPRAZOLE 15 MG TAB.RAP.DR PO SCH (09:31)
[2017-01-21] MEDS: LACTOBACILLUS ACIDOPHILUS 250 MG TAB PO SCH ×2 (09:31→18:07)
[2017-01-21] MEDS: FUROSEMIDE 40 MG TABLET PO SCH ×2 (09:31→18:07)
[2017-01-21] MEDS ORDERED: EPOETIN ALFA INJ 20000 UNIT/1 ML VIAL (RENAL) IV PRN (17:23)
[2017-01-21] MEDS: CETIRIZINE HCL ORAL SOLN 5 MG/5 ML UDCUP PO SCH (18:07)
[2017-01-21] MEDS: CITALOPRAM HYDROBROMIDE 20 MG TABLET PO SCH (18:07)
[2017-01-21] MEDS: DOCUSATE SODIUM 100 MG CAPSULE PO SCH (18:07)
[2017-01-21] MEDS: FOLIC ACID/VITAMIN B COMP W-C CAPSULE PO SCH (18:07)
[2017-01-21] MEDS: ASPIRIN 81 MG TABLET, CHEWABLE PO SCH (18:07)
[2017-01-21 19:04] LABS: HEMATOCRIT 23.9 % (36.0-47.0); HGB HCT DIFFERENCE -0.2; MEAN CORPUSCULAR HEMOGLOBIN 27.6 pg (27.0-33.4); MEAN CORPUSCULAR HGB CONC 33.2 g/dL (32.0-36.0); MEAN CORPUSCULAR VOLUME 83 fl (80-97); RED BLOOD COUNT 2.88 10^6/uL (3.72-5.28); RED CELL DISTRIBUTION WIDTH 16.5 % (11.5-14.0); WHITE BLOOD COUNT 6.6 10^3/uL (4.0-10.5)
[2017-01-21 19:07] LABS: PROTHROMBIN TIME 14.6 SEC (11.4-15.4)
[2017-01-21 19:08] LABS: HEMOGLOBIN 7.9 g/dL (12.0-15.5)
--- NOTE | 2017-01-21 20:29 | PDOC PROGRESS REPORT ---
Subjective Progress Note for:: 01/21/17 Subjective:: She is not eating or drinking, she is very confused she is a DNR on hemodialysis Physical Exam Vital Signs: Temp Pulse Resp BP Pulse Ox 99.7 F 56 L 16 147/71 H 74 L 01/21/17 20:14 01/21/17 20:14 01/21/17 20:14 01/21/17 20:14 01/21/17 20:14 Intake & Output 01/20/17 01/21/17 01/22/17 06:59 06:59 06:59 Intake Total 1270 1123 525 Output Total 200 300 Balance 1070 823 525 Weight 81.6 kg 82.5 kg General appearance: PRESENT: no acute distress Eye exam: PRESENT: PERRLA Respiratory exam: PRESENT: clear to auscultation kennedi Cardiovascular exam: PRESENT: +S1, +S2 Results Laboratory Results: 01/21/17 18:41 01/21/17 18:41 01/21/17 01/21/17 18:41 18:41 WBC 6.6 RBC 2.88 L Hgb 7.9 L Hct 23.9 L MCV 83 MCH 27.6 MCHC 33.2 RDW 16.5 H Plt Count 222 Sodium Cancelled Potassium Cancelled Chloride Cancelled Carbon Dioxide Cancelled Anion Gap Cancelled BUN Cancelled Creatinine Cancelled Est GFR ( Amer) Cancelled Est GFR (Non-Af Amer) Cancelled Glucose Cancelled Calcium Cancelled 01/01/17 01/01/17 01/02/17 23:20 23:20 06:07 Creatine Kinase 23 L 22 L CK-MB (CK-2) 0.36 Troponin I < 0.012 NT-Pro-B Natriuret Pep 01/02/17 01/04/17 06:07 05:45 Creatine Kinase CK-MB (CK-2) 0.47 Troponin I < 0.012 NT-Pro-B Natriuret Pep 51867 H Impressions: Cervical Spine CT 01/01/17 08:43 IMPRESSION: Considerable motion artifact. No fracture identified. If clinical suspicion of fracture persists, repeat imaging when the patient is more stable is recommended. Head CT 01/01/17 08:43 IMPRESSION: No visualized intracranial hemorrhage or fracture. Frontal soft tissue swelling. Significant patient motion limits evaluation of the lower cerebrum, skullbase and posterior fossa. Repeat exam recommended if there is high clinical suspicion. Hip X-Ray 01/01/17 08:43 IMPRESSION: No acute finding. Chest X-Ray 01/13/17 06:00 IMPRESSION: Cardiomegaly and mild central vascular congestion. Low lung volumes with small bilateral pleural effusions and bibasilar airspace opacities, may represent atelectasis or pneumonia. Modified Barium Swallow 01/17/17 00:00 IMPRESSION: NO EVIDENCE OF PENETRATION OR ASPIRATIONPLEASE SEE SPEECH PATHOLOGIST REPORT FOR OTHER FINDINGS AND RECOMMENDATIONS. Assessment & Plan - Diagnosis (1) Urinary tract infection Qualifiers: Urinary tract infection type: site unspecified Hematuria presence: without hematuria Qualified Code(s): N39.0 - Urinary tract infection, site not specified Is this a current diagnosis for this admission?: Yes (2) Metabolic encephalopathy Is this a current diagnosis for this admission?: Yes (3) Severe persistent allergic asthma with acute exacerbation Is this a current diagnosis for this admission?: Yes (4) End-stage renal disease on hemodialysis Is this a current diagnosis for this admission?: Yes (5) Hypoglycemia Is this a current diagnosis for this admission?: Yes (6) Contusion of face Qualifiers: Encounter type: initial encounter Qualified Code(s): S00.83XA - Contusion of other part of head, initial encounter Is this a current diagnosis for this admission?: Yes (7) Septic shock Is this a current diagnosis for this admission?: Yes (8) UTI due to extended-spectrum beta lactamase (ESBL) producing Escherichia coli Is this a current diagnosis for this admission?: Yes (9) Septic shock Is this a current diagnosis for this admission?: Yes
[2017-01-21 21:00] LABS: ANION GAP 8 (5-19); BLOOD UREA NITROGEN 12 mg/dL (7-20); CALCIUM 7.7 mg/dL (8.4-10.2); CARBON DIOXIDE 30 mmol/L (22-30); CHLORIDE 102 mmol/L (98-107); CREATININE RESULT 3.74 mg/dL (0.52-1.25); GLUCOSE 168 mg/dL (75-110); POTASSIUM 4.1 mmol/L (3.6-5.0)
[2017-01-22] MEDS: METOPROLOL TARTRATE PF/INJ 5 MG/5 ML SDV IV SCH ×3 (00:27→22:36)
[2017-01-22] MEDS: HEPARIN SOD (PORCINE) 5,000 UNIT/ML 1 ML SYRINGE SUBCUT SCH ×4 (00:27→22:37)
[2017-01-22] MEDS: MIRTAZAPINE 15 MG TABLET PO SCH ×2 (00:27→22:37)
[2017-01-22] MEDS: FLUTICASONE NASAL SPRAY 50 MCG/SPRY 120 SPRAY/16 GM NAREB SCH ×3 (00:28→22:37)
[2017-01-22] MEDS: TIMOLOL MALEATE 0.5% OPH SOLN 5 ML OU SCH ×3 (00:28→22:37)
[2017-01-22] MEDS: LEVALBUTEROL HCL NEB 1.25 MG/3 ML AMPUL NEB SCH ×3 (00:36→16:05)
[2017-01-22] MEDS: CARVEDILOL 12.5 MG TABLET PO SCH ×3 (01:28→22:37)
[2017-01-22] MEDS ORDERED: EPOETIN ALFA INJ 20000 UNIT/1 ML VIAL (RENAL) IV PRN (05:00)
[2017-01-22 06:59] LABS: ABSOLUTE BASOPHILS # (AUTO) 0.1 10^3/uL (0.0-0.2); ABSOLUTE EOSINOPHILS # (AUTO) 0.1 10^3/uL (0.0-0.6); ABSOLUTE LYMPHOCYTES (AUTO) 1.1 10^3/uL (0.5-4.7); ABSOLUTE MONOCYTES (AUTO) 0.8 10^3/uL (0.1-1.4); ABSOLUTE NEUT (AUTO) 5.3 10^3/uL (1.7-8.2); BASOPHILS % (AUTO) 0.7 % (0-2); EOSINOPHILS % (AUTO) 1.3 % (0-6); LYMPHOCYTES % (AUTO) 15.3 % (13-45); MEAN CORPUSCULAR HEMOGLOBIN 27.7 pg (27.0-33.4); MEAN CORPUSCULAR HGB CONC 33.5 g/dL (32.0-36.0); MEAN CORPUSCULAR VOLUME 83 fl (80-97); MONOCYTES % (AUTO) 11.4 % (3-13); RED CELL DISTRIBUTION WIDTH 16.2 % (11.5-14.0); SEGMENTED NEUTROPHILS % (AUTO) 71.3 % (42-78); WHITE BLOOD COUNT 7.4 10^3/uL (4.0-10.5)
[2017-01-22 07:01] LABS: ANION GAP 9 (5-19); BLOOD UREA NITROGEN 13 mg/dL (7-20); CALCIUM 7.5 mg/dL (8.4-10.2); CARBON DIOXIDE 30 mmol/L (22-30); CHLORIDE 100 mmol/L (98-107); GLUCOSE 154 mg/dL (75-110); SODIUM 138.7 mmol/L (137-145)
[2017-01-22] MEDS: BUDESONIDE NEB 0.5 MG/2 ML AMPUL NEB SCH ×2 (08:08→19:50)
[2017-01-22] MEDS: FUROSEMIDE 40 MG TABLET PO SCH (14:32)
[2017-01-22] MEDS: CALCIUM ACETATE 667 MG CAPSULE PO SCH ×2 (14:32→18:06)
[2017-01-22] MEDS: LANSOPRAZOLE 15 MG TAB.RAP.DR PO SCH (14:33)
[2017-01-22] MEDS: LACTOBACILLUS ACIDOPHILUS 250 MG TAB PO SCH ×2 (14:33→18:06)
[2017-01-22] MEDS: SITAGLIPTIN PHOSPHATE 25 MG TABLET PO SCH (14:51)
--- NOTE | 2017-01-22 15:39 | PDOC PROGRESS REPORT ---
Subjective Progress Note for:: 01/22/17 Subjective:: I saw the patient on dialysis this morning at around 8:20 AM. Patient's clinical condition is unchanged. She is a little bit more awake today. She mumbles some words but there is incomprehensible and she seems incoherent. According to the nurses who take care of her in the floor she does not eat. Awaiting decision regarding a possible PEG tube. She is tolerating dialysis well however without any problems. She clotted her system once since were dialyzing her without heparin. Physical Exam Vital Signs: Temp Pulse Resp BP Pulse Ox 98.5 F 88 16 139/44 H 99 01/22/17 13:59 01/22/17 13:59 01/22/17 13:59 01/22/17 13:59 01/22/17 13:59 Intake & Output 01/21/17 01/22/17 01/23/17 06:59 06:59 06:59 Intake Total 1123 1075 0 Output Total 300 1250 1550 Balance 823 -175 -1550 Weight 82.5 kg 82.5 kg Vitals during dialysis: Blood pressure 166/79, heart rate of 91, blood flow rate of 400 mL per minute, and dialysate flow rate of 600 mL per minute. Exam: General appearance: PRESENT: no acute distress, cooperative, well-developed, well-nourished Head exam: PRESENT: atraumatic, normocephalic Eye exam: PRESENT: conjunctiva pale, PERRLA. ABSENT: scleral icterus Neck exam: ABSENT: JVD Respiratory exam: PRESENT: Diminished breath sounds. ABSENT: crackles, rales, rhonchi, unlabored, wheezes Cardiovascular exam: PRESENT: Irregular rate rhythm -+S1, +S2. ABSENT: diastolic murmur, systolic murmur GI/Abdominal exam: PRESENT: normal bowel sounds, soft. ABSENT: guarding, mass, tenderness Extremities exam: ABSENT: No edema Neurological exam: PRESENT: alert, awake, incoherent Skin exam: PRESENT: dry, warm, Cardiovascular exam: PRESENT: +S1, +S2 GI/Abdominal exam: PRESENT: normal bowel sounds, soft. ABSENT: distended, guarding, tenderness Results Laboratory Results: 01/22/17 05:58 01/22/17 05:58 01/21/17 01/21/17 01/21/17 18:41 18:41 20:35 WBC 6.6 RBC 2.88 L Hgb 7.9 L Hct 23.9 L MCV 83 MCH 27.6 MCHC 33.2 RDW 16.5 H Plt Count 222 Seg Neutrophils % Lymphocytes % Monocytes % Eosinophils % Basophils % Absolute Neutrophils Absolute Lymphocytes Absolute Monocytes Absolute Eosinophils Absolute Basophils Sodium Cancelled 140.0 Potassium Cancelled 4.1 Chloride Cancelled 102 Carbon Dioxide Cancelled 30 Anion Gap Cancelled 8 BUN Cancelled 12 Creatinine Cancelled 3.74 H Est GFR ( Amer) Cancelled 14 L Est GFR (Non-Af Amer) Cancelled 11 L Glucose Cancelled 168 H Calcium Cancelled 7.7 L 01/22/17 01/22/17 05:58 05:58 WBC 7.4 RBC 2.90 L Hgb 8.0 L Hct 24.0 L MCV 83 MCH 27.7 MCHC 33.5 RDW 16.2 H Plt Count 223 Seg Neutrophils % 71.3 Lymphocytes % 15.3 Monocytes % 11.4 Eosinophils % 1.3 Basophils % 0.7 Absolute Neutrophils 5.3 Absolute Lymphocytes 1.1 Absolute Monocytes 0.8 Absolute Eosinophils 0.1 Absolute Basophils 0.1 Sodium 138.7 Potassium 4.0 Chloride 100 Carbon Dioxide 30 Anion Gap 9 BUN 13 Creatinine 4.20 H Est GFR ( Amer) 12 L Est GFR (Non-Af Amer) 10 L Glucose 154 H Calcium 7.5 L 01/01/17 01/01/17 01/02/17 23:20 23:20 06:07 Creatine Kinase 23 L 22 L CK-MB (CK-2) 0.36 Troponin I < 0.012 NT-Pro-B Natriuret Pep 01/02/17 01/04/17 06:07 05:45 Creatine Kinase CK-MB (CK-2) 0.47 Troponin I < 0.012 NT-Pro-B Natriuret Pep 62749 H Impressions: Cervical Spine CT 01/01/17 08:43 IMPRESSION: Considerable motion artifact. No fracture identified. If clinical suspicion of fracture persists, repeat imaging when the patient is more stable is recommended. Head CT 01/01/17 08:43 IMPRESSION: No visualized intracranial hemorrhage or fracture. Frontal soft tissue swelling. Significant patient motion limits evaluation of the lower cerebrum, skullbase and posterior fossa. Repeat exam recommended if there is high clinical suspicion. Hip X-Ray 01/01/17 08:43 IMPRESSION: No acute finding. Chest X-Ray 01/13/17 06:00 IMPRESSION: Cardiomegaly and mild central vascular congestion. Low lung volumes with small bilateral pleural effusions and bibasilar airspace opacities, may represent atelectasis or pneumonia. Modified Barium Swallow 01/17/17 00:00 IMPRESSION: NO EVIDENCE OF PENETRATION OR ASPIRATIONPLEASE SEE SPEECH PATHOLOGIST REPORT FOR OTHER FINDINGS AND RECOMMENDATIONS. Assessment & Plan - Diagnosis (1) End-stage renal disease on hemodialysis Is this a current diagnosis for this admission?: YesPlan: We did dialysis today for [3] hours, using the patient's a V fistula, with 3 potassium bath, blood flow rate of [350-500] mL per minute, dialysate flow rate of [600] mL per minute, ultrafiltration 1 L, [no heparin] and Procrit with 20, 000 units during dialysis intravenously. (2) Hypokalemia Is this a current diagnosis for this admission?: YesPlan: We use 3 potassium bath during dialysis. (3) UTI (urinary tract infection) Qualifiers: Urinary tract infection type: site unspecified Hematuria presence: with hematuria Qualified Code(s): N39.0 - Urinary tract infection, site not specified Is this a current diagnosis for this admission?: YesPlan: Due to ESBL Escherichia coli. This was treated with antibiotics. (4) Anemia in chronic kidney disease Is this a current diagnosis for this admission?: YesPlan: We will plan to give Procrit during dialysis when necessary. (5) Metabolic encephalopathy Is this a current diagnosis for this admission?: YesPlan: Patient is still confused but I think this is her baseline mentation due to advanced dementia. (6) Contusion of face Is this a current diagnosis for this admission?: YesPlan: Resolving. (7) Hypernatremia Is this a current diagnosis for this admission?: YesPlan: Resolved. I will change her IV fluid to D5 0.45 to avoid hyponatremia. - Notes Notes: Discussed the case with Dr. Richardson. - Time Time with patient: 15-25 minutes
--- NOTE | 2017-01-22 17:38 | PDOC CONSULTATION ---
Consultation Consult Date: 01/22/17 Attending physician:: GEO HEBERT Consult reason:: difficulty feeding, needs possible PEG tube History of Present Illness Admission Date/PCP: 01/01/17 17:34 ALONDRA PHILLIPS MD History of Present Illness: I have been asked to see this patient by Dr Pierre patient presented and was in the ICU here she had previously been mechanically intubated patient presented for admission after having fallen, CT scan done when she initially presented was negative no follow up scan has been done she has been going on for about 1 month she does have some underlying dementia and it is unclear what her baseline would be however she is not eating or drinking and PEG tube was recommended patient can open her eyes when I call her name, there does appear to be some sort of acute changes in addition to her underlying dementia family wants PEG tube to be performed Spoke with family about the process of placing PEG TUBE she will need her DNR status to be temporarily rescinded patient hopefully will have appropriate anatomy as well since PEG cannot be placed if stomach is in the thoracic cavity or too far down in the abdominal cavity. Risks, of bleeding, infection and inadvertent puncture also explained they seem to be willing if cannot be placed with endoscopic guidance, then may need surgically placed tube patient also had a speech evaluation and did not have any aspiration to be noted patient may have more of an encephalopathy causing her present symptoms rather than an obstructive esophagus placement of PEG tube will not increase her life expectancy Past Medical History Cardiac Medical History: Reports: Congestive Heart Failure - Chronic diastolic dysfunction, pulmonary hypertension, Coronary Artery Disease, Hyperlipidema, Hypertension - on meds Denies: Atrial Fibrillation, Myocardial Infarction, Pulmonary Embolism Pulmonary Medical History: Reports: Asthma - inhalers, Bronchitis - hx of, Chronic Obstructive Pulmonary Disease (COPD), Pneumonia - hx of, Sleep Apnea Denies: Respiratory Failure, Tuberculosis Neurological Medical History: Denies: Seizures Endocrine Medical History: Reports: Diabetes Mellitus Type 2 Denies: Diabetes Mellitus Type 1 Renal/ Medical History: Reports: End Stage Renal Disease - End-stage renal disease on maintenance hemodialysis Malignancy Medical History: Denies: Lung Cancer GI Medical History: Denies: Gastroesophageal Reflux Disease, Hiatal Hernia Musculoskeltal Medical History: Reports: 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 Denies: Fibromyalgia Psychiatric Medical History: Reports: Dementia Denies: Depression Hematology: Reports: Anemia - hx of Infectious Medical History: Reports: Methicillin-Resistant Staph Aureus Past Surgical History Past Surgical History: Reports: Cardiac Catheterization - cardiac stent 2011, Coronary Stent, Orthopedic Surgery - Back surgery, Vascular Surgery - Fistula to the right arm for dialysis Denies: Amputation, Hysterectomy, Pacemaker Social History Lives with: Family Smoking Status: Never Smoker Frequency of Alcohol Use: None Hx Recreational Drug Use: No Drugs: None Hx Prescription Drug Abuse: No - Advance Directive Resuscitation Status: Do Not Resuscitate Family History Family History: Reviewed & Not Pertinent, Other - Unable to obtain due to dementia Parental Family History Reviewed: Yes Children Family History Reviewed: Unknown Sibling(s) Family History Reviewed.: Unknown Medication/Allergy Home Medications: Acetaminophen [Tylenol Arthritis 650 mg Tablet] 650 mg PO Q6HP PRN 11/18/16 Albuterol Sulfate [Ventolin Hfa] 2 puff IH Q4HP PRN 11/18/16 Aspirin [Aspirin 81 mg Chewable Tablet] 81 mg PO DAILY 11/18/16 Brimonidine Tartrate [Alphagan P] 1 drop OU Q12 11/18/16 Budesonide/Formoterol Fumarate [Symbicort HFA 160-4.5 mcg Inhaler 6 gm] 2 puff IH Q12 11/18/16 Calcium Acetate [Phoslo 667 mg Capsule] 667 mg PO MEALS 11/18/16 Carvedilol [Coreg 12.5 mg Tablet] 37.5 mg PO Q12 11/18/16 Cetirizine HCl [Zyrtec Oral Soln 5 mg/5 ml Udcup] 10 mg PO DAILY 11/18/16 Citalopram Hydrobromide [Celexa 20 mg Tablet] 20 mg PO DAILY 11/18/16 Docusate Sodium [Colace 100 mg Capsule] 100 mg PO DAILY 11/18/16 Epoetin Johnathan [Procrit Inj 20,000 Unit/1 ml Vial (Renal)] 20,000 unit IV TUTHSA@ 1000 11/18/16 Fluticasone Propionate [Flonase Nasal [place] 50 Mcg/[place] 16 gm] 1 spray NAREB Q12 11/18/16 Folic Acid/Vitamin B Comp W-C [Nephrocaps Multiple Vitamin Capsule] 1 cap PO DAILY 11/18/16 Furosemide [Lasix 40 mg Tablet] 40 mg PO BID 11/18/16 Guaifenesin/Dextromethorphan [Guaifenesin Dm Syrup] 10 ml PO Q4HP PRN 11/18/16 Insulin Aspart [Novolog Flexpen] 5 unit SUBCUT AC 11/18/16 Insulin Detemir [Levemir Flextouch] 10 unit SQ QHS 11/18/16 Insulin Detemir [Levemir Flextouch] 30 unit SQ QAM 11/18/16 Linagliptin [Tradjenta] 5 mg PO DAILY 11/18/16 Mirtazapine 7.5 mg PO QHS 11/18/16 Omeprazole 20 mg PO DAILY 11/18/16 Timolol Maleate 1 drop OU Q12 11/18/16 Allergies/Adverse Reactions: ciprofloxacin [Ciprofloxacin] Allergy (Severe, Verified 08/23/16 20:22) rash sulfamethoxazole [Sulfamethoxazole] Allergy (Unknown, Verified 08/23/16 20:22) rash Review of Systems ROS unobtainable: Due to mental status Constitutional: ABSENT: fever(s), night sweats Cardiovascular: ABSENT: orthropnea Respiratory: ABSENT: hemoptysis Gastrointestinal: ABSENT: diarrhea, hematemesis, hematochezia, melena Genitourinary: ABSENT: hematuria Musculoskeletal: ABSENT: joint swelling Integumentary: ABSENT: lesions Neurological: PRESENT: confusion, weakness Endocrine: ABSENT: polydipsia, polyphagia, polyuria Hematologic/Lymphatic: ABSENT: easy bruising Physical Exam Vital Signs: Temp Pulse Resp BP Pulse Ox 98.5 F 92 20 139/44 H 99 01/22/17 13:59 01/22/17 16:05 01/22/17 16:05 01/22/17 13:59 01/22/17 13:59 Intake & Output 01/21/17 01/22/17 01/23/17 06:59 06:59 06:59 Intake Total 1123 1075 0 Output Total 300 1250 1550 Balance 823 -175 -1550 Weight 82.5 kg 82.5 kg General appearance: PRESENT: no acute distress Head exam: PRESENT: atraumatic, normocephalic Eye exam: PRESENT: EOMI, periorbital swelling, PERRLA. ABSENT: scleral icterus Throat exam: ABSENT: tonsillar exudate, tonsillogmegaly Neck exam: ABSENT: tenderness, thyromegaly Respiratory exam: PRESENT: symmetrical, unlabored. ABSENT: chest wall tenderness Cardiovascular exam: PRESENT: RRR, +S1, +S2 GI/Abdominal exam: PRESENT: soft. ABSENT: Calderon's sign, rebound, rigid, tenderness Extremities exam: ABSENT: joint swelling Neurological exam: PRESENT: altered, aphasic Skin exam: PRESENT: normal color. ABSENT: mottled, pallor, petechiae, urticaria , vesicles Results Laboratory Results: 01/22/17 05:58 01/22/17 05:58 01/21/17 01/21/17 01/21/17 18:41 18:41 20:35 WBC 6.6 RBC 2.88 L Hgb 7.9 L Hct 23.9 L MCV 83 MCH 27.6 MCHC 33.2 RDW 16.5 H Plt Count 222 Seg Neutrophils % Lymphocytes % Monocytes % Eosinophils % Basophils % Absolute Neutrophils Absolute Lymphocytes Absolute Monocytes Absolute Eosinophils Absolute Basophils Sodium Cancelled 140.0 Potassium Cancelled 4.1 Chloride Cancelled 102 Carbon Dioxide Cancelled 30 Anion Gap Cancelled 8 BUN Cancelled 12 Creatinine Cancelled 3.74 H Est GFR ( Amer) Cancelled 14 L Est GFR (Non-Af Amer) Cancelled 11 L Glucose Cancelled 168 H Calcium Cancelled 7.7 L 01/22/17 01/22/17 05:58 05:58 WBC 7.4 RBC 2.90 L Hgb 8.0 L Hct 24.0 L MCV 83 MCH 27.7 MCHC 33.5 RDW 16.2 H Plt Count 223 Seg Neutrophils % 71.3 Lymphocytes % 15.3 Monocytes % 11.4 Eosinophils % 1.3 Basophils % 0.7 Absolute Neutrophils 5.3 Absolute Lymphocytes 1.1 Absolute Monocytes 0.8 Absolute Eosinophils 0.1 Absolute Basophils 0.1 Sodium 138.7 Potassium 4.0 Chloride 100 Carbon Dioxide 30 Anion Gap 9 BUN 13 Creatinine 4.20 H Est GFR ( Amer) 12 L Est GFR (Non-Af Amer) 10 L Glucose 154 H Calcium 7.5 L 01/01/17 01/01/17 01/02/17 23:20 23:20 06:07 Creatine Kinase 23 L 22 L CK-MB (CK-2) 0.36 Troponin I < 0.012 NT-Pro-B Natriuret Pep 01/02/17 01/04/17 06:07 05:45 Creatine Kinase CK-MB (CK-2) 0.47 Troponin I < 0.012 NT-Pro-B Natriuret Pep [id number] H Impressions: Cervical Spine CT 01/01/17 08:43 IMPRESSION: Considerable motion artifact. No fracture identified. If clinical suspicion of fracture persists, repeat imaging when the patient is more stable is recommended. Head CT 01/01/17 08:43 IMPRESSION: No visualized intracranial hemorrhage or fracture. Frontal soft tissue swelling. Significant patient motion limits evaluation of the lower cerebrum, skullbase and posterior fossa. Repeat exam recommended if there is high clinical suspicion. Hip X-Ray 01/01/17 08:43 IMPRESSION: No acute finding. Chest X-Ray 01/13/17 06:00 IMPRESSION: Cardiomegaly and mild central vascular congestion. Low lung volumes with small bilateral pleural effusions and bibasilar airspace opacities, may represent atelectasis or pneumonia. Modified Barium Swallow 01/17/17 00:00 IMPRESSION: NO EVIDENCE OF PENETRATION OR ASPIRATIONPLEASE SEE SPEECH PATHOLOGIST REPORT FOR OTHER FINDINGS AND RECOMMENDATIONS. Assessment & Plan - Diagnosis (1) Failure to thrive in adult Plan: family is requesting the PEG tube the above as discussed in the HPI was presented to the family they want to proceed Risks, benefits and alternatives are discussed with the patient in detail Further recommendations to follow - Time Time Spent: 50 to 70 Minutes
[2017-01-22] MEDS ORDERED: CEFAZOLIN 1 GM/D5W RTU 50 ML IV PRN (17:44)
--- NOTE | 2017-01-22 17:45 | PDOC PROGRESS REPORT ---
Subjective Progress Note for:: 01/22/17 Subjective:: Patient and family is requesting for PEG tube placement, she is not eating very confused with severe dementia, on hemodialysis Physical Exam Vital Signs: Temp Pulse Resp BP Pulse Ox 98.5 F 92 20 139/44 H 99 01/22/17 13:59 01/22/17 16:05 01/22/17 16:05 01/22/17 13:59 01/22/17 13:59 Intake & Output 01/21/17 01/22/17 01/23/17 06:59 06:59 06:59 Intake Total 1123 1075 0 Output Total 300 1250 1550 Balance 823 -175 -1550 Weight 82.5 kg 82.5 kg General appearance: PRESENT: no acute distress Eye exam: PRESENT: PERRLA Respiratory exam: PRESENT: clear to auscultation kennedi Cardiovascular exam: PRESENT: +S1, +S2 Results Laboratory Results: 01/22/17 05:58 01/22/17 05:58 01/21/17 01/21/17 01/21/17 18:41 18:41 20:35 WBC 6.6 RBC 2.88 L Hgb 7.9 L Hct 23.9 L MCV 83 MCH 27.6 MCHC 33.2 RDW 16.5 H Plt Count 222 Seg Neutrophils % Lymphocytes % Monocytes % Eosinophils % Basophils % Absolute Neutrophils Absolute Lymphocytes Absolute Monocytes Absolute Eosinophils Absolute Basophils Sodium Cancelled 140.0 Potassium Cancelled 4.1 Chloride Cancelled 102 Carbon Dioxide Cancelled 30 Anion Gap Cancelled 8 BUN Cancelled 12 Creatinine Cancelled 3.74 H Est GFR ( Amer) Cancelled 14 L Est GFR (Non-Af Amer) Cancelled 11 L Glucose Cancelled 168 H Calcium Cancelled 7.7 L 01/22/17 01/22/17 05:58 05:58 WBC 7.4 RBC 2.90 L Hgb 8.0 L Hct 24.0 L MCV 83 MCH 27.7 MCHC 33.5 RDW 16.2 H Plt Count 223 Seg Neutrophils % 71.3 Lymphocytes % 15.3 Monocytes % 11.4 Eosinophils % 1.3 Basophils % 0.7 Absolute Neutrophils 5.3 Absolute Lymphocytes 1.1 Absolute Monocytes 0.8 Absolute Eosinophils 0.1 Absolute Basophils 0.1 Sodium 138.7 Potassium 4.0 Chloride 100 Carbon Dioxide 30 Anion Gap 9 BUN 13 Creatinine 4.20 H Est GFR ( Amer) 12 L Est GFR (Non-Af Amer) 10 L Glucose 154 H Calcium 7.5 L 01/01/17 01/01/17 01/02/17 23:20 23:20 06:07 Creatine Kinase 23 L 22 L CK-MB (CK-2) 0.36 Troponin I < 0.012 NT-Pro-B Natriuret Pep 01/02/17 01/04/17 06:07 05:45 Creatine Kinase CK-MB (CK-2) 0.47 Troponin I < 0.012 NT-Pro-B Natriuret Pep [id number] H Impressions: Cervical Spine CT 01/01/17 08:43 IMPRESSION: Considerable motion artifact. No fracture identified. If clinical suspicion of fracture persists, repeat imaging when the patient is more stable is recommended. Head CT 01/01/17 08:43 IMPRESSION: No visualized intracranial hemorrhage or fracture. Frontal soft tissue swelling. Significant patient motion limits evaluation of the lower cerebrum, skullbase and posterior fossa. Repeat exam recommended if there is high clinical suspicion. Hip X-Ray 01/01/17 08:43 IMPRESSION: No acute finding. Chest X-Ray 01/13/17 06:00 IMPRESSION: Cardiomegaly and mild central vascular congestion. Low lung volumes with small bilateral pleural effusions and bibasilar airspace opacities, may represent atelectasis or pneumonia. Modified Barium Swallow 01/17/17 00:00 IMPRESSION: NO EVIDENCE OF PENETRATION OR ASPIRATIONPLEASE SEE SPEECH PATHOLOGIST REPORT FOR OTHER FINDINGS AND RECOMMENDATIONS. Assessment & Plan - Diagnosis (1) Urinary tract infection Qualifiers: Urinary tract infection type: site unspecified Hematuria presence: without hematuria Qualified Code(s): N39.0 - Urinary tract infection, site not specified Is this a current diagnosis for this admission?: Yes (2) Metabolic encephalopathy Is this a current diagnosis for this admission?: Yes (3) Severe persistent allergic asthma with acute exacerbation Is this a current diagnosis for this admission?: Yes (4) End-stage renal disease on hemodialysis Is this a current diagnosis for this admission?: Yes (5) Hypoglycemia Is this a current diagnosis for this admission?: Yes (6) Contusion of face Qualifiers: Encounter type: initial encounter Qualified Code(s): S00.83XA - Contusion of other part of head, initial encounter Is this a current diagnosis for this admission?: Yes (7) Septic shock Is this a current diagnosis for this admission?: Yes (8) UTI due to extended-spectrum beta lactamase (ESBL) producing Escherichia coli Is this a current diagnosis for this admission?: Yes (9) Septic shock Is this a current diagnosis for this admission?: Yes - Plan Summary Plan Summary: Consultation is requested from GI Dr. Rivas for PEG tube placement
[2017-01-22] MEDS: FOLIC ACID/VITAMIN B COMP W-C CAPSULE PO SCH (18:06)
[2017-01-22] MEDS: DOCUSATE SODIUM 100 MG CAPSULE PO SCH (18:06)
[2017-01-22] MEDS: CITALOPRAM HYDROBROMIDE 20 MG TABLET PO SCH (18:06)
[2017-01-22] MEDS: ASPIRIN 81 MG TABLET, CHEWABLE PO SCH (18:06)
[2017-01-22] MEDS: CETIRIZINE HCL ORAL SOLN 5 MG/5 ML UDCUP PO SCH (18:06)
[2017-01-23] MEDS: LEVALBUTEROL HCL NEB 1.25 MG/3 ML AMPUL NEB SCH ×4 (00:59→23:57)
[2017-01-23] MEDS: HEPARIN SOD (PORCINE) 5,000 UNIT/ML 1 ML SYRINGE SUBCUT SCH ×3 (06:18→22:09)
[2017-01-23 06:26] LABS: PROTHROMBIN TIME 14.5 SEC (11.4-15.4)
[2017-01-23] MEDS: DEXTROSE 5%-1/2 NORMAL SALINE 1,000 ML IV PRN ×2 (06:40→23:18)
[2017-01-23] MEDS: BUDESONIDE NEB 0.5 MG/2 ML AMPUL NEB SCH ×2 (07:59→19:36)
[2017-01-23] MEDS: LACTOBACILLUS ACIDOPHILUS 250 MG TAB PO SCH ×2 (09:45→19:43)
[2017-01-23] MEDS: SITAGLIPTIN PHOSPHATE 25 MG TABLET PO SCH (09:45)
[2017-01-23] MEDS: TIMOLOL MALEATE 0.5% OPH SOLN 5 ML OU SCH ×2 (09:45→22:12)
[2017-01-23] MEDS: CARVEDILOL 12.5 MG TABLET PO SCH ×2 (09:45→22:09)
[2017-01-23] MEDS: FUROSEMIDE 40 MG TABLET PO SCH ×2 (09:45→19:44)
[2017-01-23] MEDS: LANSOPRAZOLE 15 MG TAB.RAP.DR PO SCH (09:45)
[2017-01-23] MEDS: METOPROLOL TARTRATE PF/INJ 5 MG/5 ML SDV IV SCH ×2 (09:45→22:09)
[2017-01-23] MEDS: FLUTICASONE NASAL SPRAY 50 MCG/SPRY 120 SPRAY/16 GM NAREB SCH ×2 (09:45→22:11)
[2017-01-23] MEDS: CALCIUM ACETATE 667 MG CAPSULE PO SCH ×3 (09:45→19:44)
[2017-01-23] MEDS ORDERED: DIPHENHYDRAMINE HCL 50 MG/ML VIAL ONE (13:38)
[2017-01-23] MEDS ORDERED: NALOXONE HCL INJ/PF 0.4 MG/1 ML SDV ONE (13:38)
[2017-01-23] MEDS ORDERED: ONDANSETRON HCL INJ/PF 4 MG/2 ML SDV ONE (13:38)
[2017-01-23] MEDS ORDERED: GLUCAGON,HUMAN RECOMB 1 MG INJ ONE (13:39)
[2017-01-23] MEDS ORDERED: FLUMAZENIL INJ 0.5 MG/5 ML VIAL IV ONE (13:39)
[2017-01-23] MEDS ORDERED: EPINEPHRINE INJ 1 MG/10 ML DISP.SYRIN ONE (13:39)
[2017-01-23] MEDS ORDERED: FENTANYL CITRATE INJ/PF 100 MCG/2 ML AMPUL ONE (13:39)
[2017-01-23] MEDS ORDERED: MIDAZOLAM 2 MG/2 ML INJ ONE (13:39)
[2017-01-23 14:29] LABS: ARTERIAL BLOOD BASE EXCESS 5.3 mmol/L; ARTERIAL BLOOD O2 SATURATION 93.5 % (94-98)
[2017-01-23] MEDS: MIDAZOLAM 2 MG/2 ML INJ ONE ×3 (14:42→15:29)
[2017-01-23] MEDS ORDERED: LIDOCAINE 1% INJ-PF (10 MG/ML) 30 ML SDV ONE (15:10)
--- NOTE | 2017-01-23 17:41 | Operative Report ---
Operative Report DATE OF SURGERY: 01/23/17 Operative Report: The risks benefits and alternatives of the procedure explained to the patient in detail and informed consent is obtained that GIF Olympus video scope was inserted into the patient's mouth and hypopharynx the esophagus is identified intubated and insufflated the scope was then advanced through the esophagus stomach and duodenum retroflexion maneuver is done the esophagus stomach and first and second portions of the duodenum examined the patient was noted to have a previous gastrostomy tube site the area was cleaned with iodine solution and a sterile drape placed over the area the area of injected with 2% Lidocaine the tip of the needle was seen to puncture the stomach wall patient has a hiatal hernia which made placement tricky I requested the assistance of Dr Hanna from surgery to place trocar thur the site at which the incision was made The trocar was grasped on the anterior by a guidewire The metal portion of the trocar was then subsequently removed. The guidewire was then brought out to the exterior. At this point the PEG tube was tied to the end of the guidewire and using traction method the PEG tube was pulled via the patient's mouth and brought to the anterior abdominal wall with bumper noted at approximately 3 cm. The area was cleaned and dressing applied antibiotics applied repeat upper endoscopy was done to confirm placement and the procedure terminated. Patient tolerated the procedure well. No postprocedure complications are noted. PREOPERATIVE DIAGNOSIS: Adult failure to thrive POSTOPERATIVE DIAGNOSIS: Successful placement of 20 [place] percutaneous gastrostomy tube OPERATION: EGD with PEG placement SURGEON: GEO HEBERT ANESTHESIA: Moderate Sedation - 4 mg of Versed, 25 g of fentanyl. Conscious sedation monitoring time 45 minutes. TISSUE REMOVED OR ALTERED: None COMPLICATIONS: None. ESTIMATED BLOOD LOSS: minimal INTRAOPERATIVE FINDINGS: Mild gastritis. Patent gastric outlet PROCEDURE: Patient tolerated the procedure well. No immediate postprocedure complications are noted. Patient sent back to her room in good condition. We'll have to PEG tube not be useful about 8 hours. Cleansing instructions are written. Patient may begin bolus feeds in the morning. PEG will be adjusted in the morning to reduce risk of infection.
[2017-01-23] MEDS: CETIRIZINE HCL ORAL SOLN 5 MG/5 ML UDCUP PO SCH (19:44)
[2017-01-23] MEDS: FOLIC ACID/VITAMIN B COMP W-C CAPSULE PO SCH (19:44)
[2017-01-23] MEDS: ASPIRIN 81 MG TABLET, CHEWABLE PO SCH (19:44)
[2017-01-23] MEDS: DOCUSATE SODIUM 100 MG CAPSULE PO SCH (19:44)
[2017-01-23] MEDS: CITALOPRAM HYDROBROMIDE 20 MG TABLET PO SCH (19:44)
--- NOTE | 2017-01-23 19:49 | PDOC PROGRESS REPORT ---
Subjective Progress Note for:: 01/23/17 Subjective:: She had PEG tube placement today, she is not communicating,that much Physical Exam Vital Signs: Temp Pulse Resp BP Pulse Ox 100.0 F 85 18 133/59 H 100 01/23/17 18:55 01/23/17 18:55 01/23/17 18:55 01/23/17 18:55 01/23/17 18:55 Intake & Output 01/22/17 01/23/17 01/24/17 06:59 06:59 06:59 Intake Total 1075 0 800 Output Total 1250 1900 Balance -175 -1900 800 Weight 82.5 kg 83.6 kg General appearance: PRESENT: no acute distress Eye exam: PRESENT: PERRLA Respiratory exam: PRESENT: clear to auscultation kennedi Cardiovascular exam: PRESENT: +S1, +S2 Results Laboratory Results: 01/22/17 05:58 01/22/17 05:58 01/23/17 09:57 Carbonic Acid 1.30 HCO3/H2CO3 Ratio 22:1 ABG pH 7.46 H ABG pCO2 43.2 ABG pO2 64.4 L ABG HCO3 29.7 H ABG O2 Saturation 93.5 L ABG Base Excess 5.3 FiO2 3 L 01/01/17 01/01/17 01/02/17 23:20 23:20 06:07 Creatine Kinase 23 L 22 L CK-MB (CK-2) 0.36 Troponin I < 0.012 NT-Pro-B Natriuret Pep 01/02/17 01/04/17 06:07 05:45 Creatine Kinase CK-MB (CK-2) 0.47 Troponin I < 0.012 NT-Pro-B Natriuret Pep [id number] H Impressions: Cervical Spine CT 01/01/17 08:43 IMPRESSION: Considerable motion artifact. No fracture identified. If clinical suspicion of fracture persists, repeat imaging when the patient is more stable is recommended. Head CT 01/01/17 08:43 IMPRESSION: No visualized intracranial hemorrhage or fracture. Frontal soft tissue swelling. Significant patient motion limits evaluation of the lower cerebrum, skullbase and posterior fossa. Repeat exam recommended if there is high clinical suspicion. Hip X-Ray 01/01/17 08:43 IMPRESSION: No acute finding. Chest X-Ray 01/13/17 06:00 IMPRESSION: Cardiomegaly and mild central vascular congestion. Low lung volumes with small bilateral pleural effusions and bibasilar airspace opacities, may represent atelectasis or pneumonia. Modified Barium Swallow 01/17/17 00:00 IMPRESSION: NO EVIDENCE OF PENETRATION OR ASPIRATIONPLEASE SEE SPEECH PATHOLOGIST REPORT FOR OTHER FINDINGS AND RECOMMENDATIONS. Assessment & Plan - Diagnosis (1) Urinary tract infection Qualifiers: Urinary tract infection type: site unspecified Hematuria presence: without hematuria Qualified Code(s): N39.0 - Urinary tract infection, site not specified Is this a current diagnosis for this admission?: Yes (2) Metabolic encephalopathy Is this a current diagnosis for this admission?: Yes (3) Severe persistent allergic asthma with acute exacerbation Is this a current diagnosis for this admission?: Yes (4) End-stage renal disease on hemodialysis Is this a current diagnosis for this admission?: Yes (5) Hypoglycemia Is this a current diagnosis for this admission?: Yes (6) Contusion of face Qualifiers: Encounter type: initial encounter Qualified Code(s): S00.83XA - Contusion of other part of head, initial encounter Is this a current diagnosis for this admission?: Yes (7) Septic shock Is this a current diagnosis for this admission?: Yes (8) UTI due to extended-spectrum beta lactamase (ESBL) producing Escherichia coli Is this a current diagnosis for this admission?: Yes (9) Septic shock Is this a current diagnosis for this admission?: Yes
[2017-01-23] MEDS: MIRTAZAPINE 15 MG TABLET PO SCH (22:09)
[2017-01-23] MEDS: INSULIN LISPRO 100 UNIT/ML 3 ML VIAL SUBCUT PRN (23:18)
[2017-01-24] MEDS ORDERED: HEPARIN SOD (PORCINE) 1,000 UNIT/ML 10 ML VIAL MC PRN (05:00)
[2017-01-24] MEDS ORDERED: EPOETIN ALFA 25,000 UNIT in SYRINGE, DISPOSABLE, 1 EACH IV PRN (05:00)
[2017-01-24] MEDS: HEPARIN SOD (PORCINE) 5,000 UNIT/ML 1 ML SYRINGE SUBCUT SCH ×3 (05:21→21:40)
[2017-01-24 06:10] LABS: ABSOLUTE EOSINOPHILS # (AUTO) 0.1 10^3/uL (0.0-0.6); ABSOLUTE LYMPHOCYTES (AUTO) 1.1 10^3/uL (0.5-4.7); ABSOLUTE MONOCYTES (AUTO) 1.1 10^3/uL (0.1-1.4); ABSOLUTE NEUT (AUTO) 4.5 10^3/uL (1.7-8.2); BASOPHILS % (AUTO) 0.5 % (0-2); EOSINOPHILS % (AUTO) 1.2 % (0-6); HEMATOCRIT 22.2 % (36.0-47.0); HGB HCT DIFFERENCE 0.3; MEAN CORPUSCULAR HEMOGLOBIN 27.8 pg (27.0-33.4); MEAN CORPUSCULAR HGB CONC 33.9 g/dL (32.0-36.0); MEAN CORPUSCULAR VOLUME 82 fl (80-97); MONOCYTES % (AUTO) 15.7 % (3-13); RED BLOOD COUNT 2.71 10^6/uL (3.72-5.28); RED CELL DISTRIBUTION WIDTH 16.4 % (11.5-14.0); SEGMENTED NEUTROPHILS % (AUTO) 66.6 % (42-78); WHITE BLOOD COUNT 6.7 10^3/uL (4.0-10.5)
[2017-01-24 06:13] LABS: ANION GAP 9 (5-19); BLOOD UREA NITROGEN 10 mg/dL (7-20); CALCIUM 7.8 mg/dL (8.4-10.2); CARBON DIOXIDE 29 mmol/L (22-30); CHLORIDE 98 mmol/L (98-107); CREATININE RESULT 4.11 mg/dL (0.52-1.25); GLUCOSE 140 mg/dL (75-110); POTASSIUM 3.4 mmol/L (3.6-5.0); SODIUM 135.6 mmol/L (137-145)
[2017-01-24 06:16] LABS: HEMOGLOBIN 7.5 g/dL (12.0-15.5)
[2017-01-24] MEDS: BUDESONIDE NEB 0.5 MG/2 ML AMPUL NEB SCH ×2 (08:57→19:57)
[2017-01-24] MEDS: LEVALBUTEROL HCL NEB 1.25 MG/3 ML AMPUL NEB SCH ×3 (08:57→23:48)
--- NOTE | 2017-01-24 10:40 | PDOC PROGRESS REPORT ---
Subjective Progress Note for:: 01/23/17 Subjective:: Awake Physical Exam Vital Signs: Temp Pulse Resp BP Pulse Ox 99.6 F 107 H 20 158/57 H 97 01/24/17 05:20 01/24/17 08:57 01/24/17 08:57 01/24/17 05:20 01/24/17 08:57 Intake & Output 01/23/17 01/24/17 01/25/17 06:59 06:59 06:59 Intake Total 0 800 Output Total 1900 520 Balance -1900 280 Weight 83.6 kg 84.2 kg General appearance: PRESENT: no acute distress, disheveled, obese Head exam: PRESENT: atraumatic, normocephalic Eye exam: PRESENT: conjunctiva pale, EOMI Mouth exam: PRESENT: moist, neck supple Neck exam: ABSENT: carotid bruit, JVD, lymphadenopathy, thyromegaly Respiratory exam: PRESENT: decreased breath sounds, prolonged expiratory phas, rales, rhonchi, symmetrical, unlabored Cardiovascular exam: PRESENT: irregular rhythm Pulses: PRESENT: normal radial pulses GI/Abdominal exam: PRESENT: normal bowel sounds, soft. ABSENT: distended, guarding, mass, organolmegaly, rebound, tenderness Rectal exam: PRESENT: deferred Gentrourinary exam: PRESENT: indwelling catheter Musculoskeletal exam: PRESENT: normal inspection Neurological exam: PRESENT: awake Skin exam: PRESENT: dry, warm Results Laboratory Results: 01/24/17 05:30 01/24/17 05:30 01/23/17 01/24/17 01/24/17 09:57 05:30 05:30 WBC 6.7 RBC 2.71 L Hgb 7.5 L Hct 22.2 L MCV 82 MCH 27.8 MCHC 33.9 RDW 16.4 H Plt Count 161 Seg Neutrophils % 66.6 Lymphocytes % 16.0 Monocytes % 15.7 H Eosinophils % 1.2 Basophils % 0.5 Absolute Neutrophils 4.5 Absolute Lymphocytes 1.1 Absolute Monocytes 1.1 Absolute Eosinophils 0.1 Absolute Basophils 0.0 Carbonic Acid 1.30 HCO3/H2CO3 Ratio 22:1 ABG pH 7.46 H ABG pCO2 43.2 ABG pO2 64.4 L ABG HCO3 29.7 H ABG O2 Saturation 93.5 L ABG Base Excess 5.3 FiO2 3 L Sodium 135.6 L Potassium 3.4 L Chloride 98 Carbon Dioxide 29 Anion Gap 9 BUN 10 Creatinine 4.11 H Est GFR ( Amer) 12 L Est GFR (Non-Af Amer) 10 L Glucose 140 H Calcium 7.8 L 01/01/17 01/01/17 01/02/17 23:20 23:20 06:07 Creatine Kinase 23 L 22 L CK-MB (CK-2) 0.36 Troponin I < 0.012 NT-Pro-B Natriuret Pep 01/02/17 01/04/17 06:07 05:45 Creatine Kinase CK-MB (CK-2) 0.47 Troponin I < 0.012 NT-Pro-B Natriuret Pep [id number] H Impressions: Cervical Spine CT 01/01/17 08:43 IMPRESSION: Considerable motion artifact. No fracture identified. If clinical suspicion of fracture persists, repeat imaging when the patient is more stable is recommended. Head CT 01/01/17 08:43 IMPRESSION: No visualized intracranial hemorrhage or fracture. Frontal soft tissue swelling. Significant patient motion limits evaluation of the lower cerebrum, skullbase and posterior fossa. Repeat exam recommended if there is high clinical suspicion. Hip X-Ray 01/01/17 08:43 IMPRESSION: No acute finding. Chest X-Ray 01/13/17 06:00 IMPRESSION: Cardiomegaly and mild central vascular congestion. Low lung volumes with small bilateral pleural effusions and bibasilar airspace opacities, may represent atelectasis or pneumonia. Modified Barium Swallow 01/17/17 00:00 IMPRESSION: NO EVIDENCE OF PENETRATION OR ASPIRATIONPLEASE SEE SPEECH PATHOLOGIST REPORT FOR OTHER FINDINGS AND RECOMMENDATIONS. Assessment & Plan - Diagnosis (1) Dementia Is this a current diagnosis for this admission?: Yes (2) End-stage renal disease on hemodialysis Is this a current diagnosis for this admission?: Yes (3) Respiratory failure Qualifiers: Chronicity: acute Is this a current diagnosis for this admission?: YesPlan: Noninvasive ventilation mask not applied mask on floor staff unable to explain why not accepting patient dementia as a reasonable response (4) Septic shock Is this a current diagnosis for this admission?: No
--- NOTE | 2017-01-24 12:26 | PDOC PROGRESS REPORT ---
Subjective Progress Note for:: 01/24/17 Subjective:: Patient seen in the dialysis unit. She is appears to be tolerating well. The percutaneous gastrostomy tube is still in place. The bumper was adjusted back to 3 cm. The site appears to be doing well, no erythema or discharge. Her hemoglobin has been stable. She does appear to have chronic anemia. No reports of melena overnight. Should be able to use the PEG tube this morning. Physical Exam Vital Signs: Temp Pulse Resp BP Pulse Ox 99.6 F 107 H 20 158/57 H 97 01/24/17 05:20 01/24/17 08:57 01/24/17 08:57 01/24/17 05:20 01/24/17 08:57 Intake & Output 01/23/17 01/24/17 01/25/17 06:59 06:59 06:59 Intake Total 0 800 Output Total 1900 520 Balance -1900 280 Weight 83.6 kg 84.2 kg General appearance: PRESENT: no acute distress, well-developed, well-nourished Head exam: PRESENT: atraumatic, normocephalic Eye exam: PRESENT: EOMI, PERRLA. ABSENT: conjunctival injection, nystagmus, periorbital swelling, scleral icterus Mouth exam: PRESENT: moist Throat exam: ABSENT: tonsillar exudate, tonsillogmegaly Neck exam: ABSENT: meningismus, tenderness, thyromegaly Respiratory exam: PRESENT: symmetrical, unlabored. ABSENT: retraction, wheezes Cardiovascular exam: PRESENT: RRR, +S1, +S2. ABSENT: rubs GI/Abdominal exam: PRESENT: soft. ABSENT: ascites, Calderon's sign, rebound, rigid, tenderness Musculoskeletal exam: PRESENT: full ROM Neurological exam: PRESENT: CN II-XII grossly intact Skin exam: PRESENT: normal color. ABSENT: mottled, pallor, petechiae, urticaria , vesicles Results Laboratory Results: 01/24/17 05:30 01/24/17 05:30 01/23/17 01/24/17 01/24/17 09:57 05:30 05:30 WBC 6.7 RBC 2.71 L Hgb 7.5 L Hct 22.2 L MCV 82 MCH 27.8 MCHC 33.9 RDW 16.4 H Plt Count 161 Seg Neutrophils % 66.6 Lymphocytes % 16.0 Monocytes % 15.7 H Eosinophils % 1.2 Basophils % 0.5 Absolute Neutrophils 4.5 Absolute Lymphocytes 1.1 Absolute Monocytes 1.1 Absolute Eosinophils 0.1 Absolute Basophils 0.0 Carbonic Acid 1.30 HCO3/H2CO3 Ratio 22:1 ABG pH 7.46 H ABG pCO2 43.2 ABG pO2 64.4 L ABG HCO3 29.7 H ABG O2 Saturation 93.5 L ABG Base Excess 5.3 FiO2 3 L Sodium 135.6 L Potassium 3.4 L Chloride 98 Carbon Dioxide 29 Anion Gap 9 BUN 10 Creatinine 4.11 H Est GFR ( Amer) 12 L Est GFR (Non-Af Amer) 10 L Glucose 140 H Calcium 7.8 L 01/01/17 01/01/17 01/02/17 23:20 23:20 06:07 Creatine Kinase 23 L 22 L CK-MB (CK-2) 0.36 Troponin I < 0.012 NT-Pro-B Natriuret Pep 01/02/17 01/04/17 06:07 05:45 Creatine Kinase CK-MB (CK-2) 0.47 Troponin I < 0.012 NT-Pro-B Natriuret Pep [id number] H Impressions: Cervical Spine CT 01/01/17 08:43 IMPRESSION: Considerable motion artifact. No fracture identified. If clinical suspicion of fracture persists, repeat imaging when the patient is more stable is recommended. Head CT 01/01/17 08:43 IMPRESSION: No visualized intracranial hemorrhage or fracture. Frontal soft tissue swelling. Significant patient motion limits evaluation of the lower cerebrum, skullbase and posterior fossa. Repeat exam recommended if there is high clinical suspicion. Hip X-Ray 01/01/17 08:43 IMPRESSION: No acute finding. Chest X-Ray 01/13/17 06:00 IMPRESSION: Cardiomegaly and mild central vascular congestion. Low lung volumes with small bilateral pleural effusions and bibasilar airspace opacities, may represent atelectasis or pneumonia. Modified Barium Swallow 01/17/17 00:00 IMPRESSION: NO EVIDENCE OF PENETRATION OR ASPIRATIONPLEASE SEE SPEECH PATHOLOGIST REPORT FOR OTHER FINDINGS AND RECOMMENDATIONS. Assessment & Plan - Diagnosis (2) Adult failure to thrive Plan: Status post PEG tube placement. Can go ahead and use the tube. Cleaning instructions provided. I do not some improvement she is definitely multifocal today Continue current therapy. Watch H&H - Time Time Spent with patient: 15-24 minutes
[2017-01-24] MEDS: CALCIUM ACETATE 667 MG CAPSULE PO SCH ×3 (12:45→17:25)
[2017-01-24] MEDS: LACTOBACILLUS ACIDOPHILUS 250 MG TAB PO SCH ×2 (12:54→17:25)
[2017-01-24] MEDS: LANSOPRAZOLE 15 MG TAB.RAP.DR PO SCH (12:55)
[2017-01-24] MEDS: FUROSEMIDE 40 MG TABLET PO SCH ×2 (12:55→17:25)
[2017-01-24] MEDS: CARVEDILOL 12.5 MG TABLET PO SCH ×2 (12:55→22:29)
[2017-01-24] MEDS: SITAGLIPTIN PHOSPHATE 25 MG TABLET PO SCH (12:55)
[2017-01-24] MEDS: METOPROLOL TARTRATE PF/INJ 5 MG/5 ML SDV IV SCH ×2 (12:56→22:33)
[2017-01-24] MEDS: TIMOLOL MALEATE 0.5% OPH SOLN 5 ML OU SCH ×2 (12:57→22:34)
[2017-01-24] MEDS: FLUTICASONE NASAL SPRAY 50 MCG/SPRY 120 SPRAY/16 GM NAREB SCH ×2 (12:57→22:34)
[2017-01-24] MEDS: ASPIRIN 81 MG TABLET, CHEWABLE PO SCH (17:25)
[2017-01-24] MEDS: CETIRIZINE HCL ORAL SOLN 5 MG/5 ML UDCUP PO SCH (17:26)
[2017-01-24] MEDS: CITALOPRAM HYDROBROMIDE 20 MG TABLET PO SCH (17:26)
[2017-01-24] MEDS: FOLIC ACID/VITAMIN B COMP W-C CAPSULE PO SCH (17:26)
[2017-01-24] MEDS: DOCUSATE SODIUM 100 MG CAPSULE PO SCH (17:26)
[2017-01-24] MEDS: INSULIN LISPRO 100 UNIT/ML 3 ML VIAL SUBCUT PRN (17:55)
--- NOTE | 2017-01-24 18:46 | PDOC PROGRESS REPORT ---
Subjective Progress Note for:: 01/24/17 Subjective:: She had a PEG tube placed yesterday, she was seen by the bedside, patient's daughter was in the room with her Physical Exam Vital Signs: Temp Pulse Resp BP Pulse Ox 98.4 F 79 18 133/48 H 100 01/24/17 16:03 01/24/17 16:03 01/24/17 16:03 01/24/17 16:03 01/24/17 16:03 Intake & Output 01/23/17 01/24/17 01/25/17 06:59 06:59 06:59 Intake Total 0 800 0 Output Total 2773 968 8238 Balance -1900 280 -1300 Weight 83.6 kg 84.2 kg General appearance: PRESENT: no acute distress, well-developed, well-nourished Head exam: PRESENT: atraumatic, normocephalic Eye exam: PRESENT: conjunctiva pink, EOMI, PERRLA Ear exam: PRESENT: normal external ear exam Mouth exam: PRESENT: moist, tongue midline Neck exam: PRESENT: full ROM Cardiovascular exam: PRESENT: RRR, +S1, +S2 GI/Abdominal exam: PRESENT: soft Rectal exam: PRESENT: deferred Skin exam: PRESENT: dry, intact, warm Results Laboratory Results: 01/24/17 05:30 01/24/17 05:30 01/24/17 01/24/17 05:30 05:30 WBC 6.7 RBC 2.71 L Hgb 7.5 L Hct 22.2 L MCV 82 MCH 27.8 MCHC 33.9 RDW 16.4 H Plt Count 161 Seg Neutrophils % 66.6 Lymphocytes % 16.0 Monocytes % 15.7 H Eosinophils % 1.2 Basophils % 0.5 Absolute Neutrophils 4.5 Absolute Lymphocytes 1.1 Absolute Monocytes 1.1 Absolute Eosinophils 0.1 Absolute Basophils 0.0 Sodium 135.6 L Potassium 3.4 L Chloride 98 Carbon Dioxide 29 Anion Gap 9 BUN 10 Creatinine 4.11 H Est GFR ( Amer) 12 L Est GFR (Non-Af Amer) 10 L Glucose 140 H Calcium 7.8 L 01/01/17 01/01/17 01/02/17 23:20 23:20 06:07 Creatine Kinase 23 L 22 L CK-MB (CK-2) 0.36 Troponin I < 0.012 NT-Pro-B Natriuret Pep 01/02/17 01/04/17 06:07 05:45 Creatine Kinase CK-MB (CK-2) 0.47 Troponin I < 0.012 NT-Pro-B Natriuret Pep [id number] H Impressions: Cervical Spine CT 01/01/17 08:43 IMPRESSION: Considerable motion artifact. No fracture identified. If clinical suspicion of fracture persists, repeat imaging when the patient is more stable is recommended. Head CT 01/01/17 08:43 IMPRESSION: No visualized intracranial hemorrhage or fracture. Frontal soft tissue swelling. Significant patient motion limits evaluation of the lower cerebrum, skullbase and posterior fossa. Repeat exam recommended if there is high clinical suspicion. Hip X-Ray 01/01/17 08:43 IMPRESSION: No acute finding. Chest X-Ray 01/13/17 06:00 IMPRESSION: Cardiomegaly and mild central vascular congestion. Low lung volumes with small bilateral pleural effusions and bibasilar airspace opacities, may represent atelectasis or pneumonia. Modified Barium Swallow 01/17/17 00:00 IMPRESSION: NO EVIDENCE OF PENETRATION OR ASPIRATIONPLEASE SEE SPEECH PATHOLOGIST REPORT FOR OTHER FINDINGS AND RECOMMENDATIONS. Assessment & Plan - Diagnosis (1) Urinary tract infection Qualifiers: Urinary tract infection type: site unspecified Hematuria presence: without hematuria Qualified Code(s): N39.0 - Urinary tract infection, site not specified Is this a current diagnosis for this admission?: Yes (2) Metabolic encephalopathy Is this a current diagnosis for this admission?: Yes (3) Severe persistent allergic asthma with acute exacerbation Is this a current diagnosis for this admission?: Yes (4) End-stage renal disease on hemodialysis Is this a current diagnosis for this admission?: Yes (5) Hypoglycemia Is this a current diagnosis for this admission?: Yes (6) Contusion of face Qualifiers: Encounter type: initial encounter Qualified Code(s): S00.83XA - Contusion of other part of head, initial encounter Is this a current diagnosis for this admission?: Yes (7) Septic shock Is this a current diagnosis for this admission?: No (8) UTI due to extended-spectrum beta lactamase (ESBL) producing Escherichia coli Is this a current diagnosis for this admission?: Yes (9) Septic shock Is this a current diagnosis for this admission?: Yes
--- NOTE | 2017-01-24 19:16 | PDOC PROGRESS REPORT ---
Subjective Progress Note for:: 01/24/17 Subjective:: Patient underwent PEG tube placement yesterday. It has not been used yet. Patient remains to be lethargic at times and sometimes slightly more awake. She continues to not have much oral intake. She doesn't really complain of anything. I saw her this morning during dialysis at around 8:15 AM. She tolerated dialysis without any problems. Physical Exam Vital Signs: Temp Pulse Resp BP Pulse Ox 98.4 F 79 18 133/48 H 100 01/24/17 16:03 01/24/17 16:03 01/24/17 16:03 01/24/17 16:03 01/24/17 16:03 Intake & Output 01/23/17 01/24/17 01/25/17 06:59 06:59 06:59 Intake Total 0 800 0 Output Total 6406 800 4977 Balance -1900 280 -1300 Weight 83.6 kg 84.2 kg Vital signs during dialysis when I saw her: Blood pressure 123/62, heart rate 119, temperature 98.4, respiratory rate of 16, blood flow rate of 450 mL per minute and dialysate flow rate of 600 mL per minute. Exam: General appearance: PRESENT: Lethargic Head exam: PRESENT: atraumatic, normocephalic Eye exam: PRESENT: conjunctiva pale, PERRLA. ABSENT: scleral icterus Neck exam: ABSENT: JVD Respiratory exam: PRESENT: Diminished breath sounds. ABSENT: crackles, rales, rhonchi, unlabored, wheezes Cardiovascular exam: PRESENT: Irregular rate rhythm -+S1, +S2. ABSENT: diastolic murmur, systolic murmur GI/Abdominal exam: PRESENT: normal bowel sounds, soft. ABSENT: guarding, mass, tenderness, PEG tube in place Extremities exam: ABSENT: Right arm mild edema Neurological exam: PRESENT: Lethargic Skin exam: PRESENT: dry, warm, Cardiovascular exam: PRESENT: +S1, +S2 GI/Abdominal exam: PRESENT: normal bowel sounds, soft. ABSENT: distended, guarding, tenderness Results Laboratory Results: 01/24/17 05:30 01/24/17 05:30 01/24/17 01/24/17 05:30 05:30 WBC 6.7 RBC 2.71 L Hgb 7.5 L Hct 22.2 L MCV 82 MCH 27.8 MCHC 33.9 RDW 16.4 H Plt Count 161 Seg Neutrophils % 66.6 Lymphocytes % 16.0 Monocytes % 15.7 H Eosinophils % 1.2 Basophils % 0.5 Absolute Neutrophils 4.5 Absolute Lymphocytes 1.1 Absolute Monocytes 1.1 Absolute Eosinophils 0.1 Absolute Basophils 0.0 Sodium 135.6 L Potassium 3.4 L Chloride 98 Carbon Dioxide 29 Anion Gap 9 BUN 10 Creatinine 4.11 H Est GFR ( Amer) 12 L Est GFR (Non-Af Amer) 10 L Glucose 140 H Calcium 7.8 L 01/01/17 01/01/17 01/02/17 23:20 23:20 06:07 Creatine Kinase 23 L 22 L CK-MB (CK-2) 0.36 Troponin I < 0.012 NT-Pro-B Natriuret Pep 01/02/17 01/04/17 06:07 05:45 Creatine Kinase CK-MB (CK-2) 0.47 Troponin I < 0.012 NT-Pro-B Natriuret Pep 25142 H Impressions: Cervical Spine CT 01/01/17 08:43 IMPRESSION: Considerable motion artifact. No fracture identified. If clinical suspicion of fracture persists, repeat imaging when the patient is more stable is recommended. Head CT 01/01/17 08:43 IMPRESSION: No visualized intracranial hemorrhage or fracture. Frontal soft tissue swelling. Significant patient motion limits evaluation of the lower cerebrum, skullbase and posterior fossa. Repeat exam recommended if there is high clinical suspicion. Hip X-Ray 01/01/17 08:43 IMPRESSION: No acute finding. Chest X-Ray 01/13/17 06:00 IMPRESSION: Cardiomegaly and mild central vascular congestion. Low lung volumes with small bilateral pleural effusions and bibasilar airspace opacities, may represent atelectasis or pneumonia. Modified Barium Swallow 01/17/17 00:00 IMPRESSION: NO EVIDENCE OF PENETRATION OR ASPIRATIONPLEASE SEE SPEECH PATHOLOGIST REPORT FOR OTHER FINDINGS AND RECOMMENDATIONS. Assessment & Plan - Diagnosis (1) End-stage renal disease on hemodialysis Is this a current diagnosis for this admission?: YesPlan: We did dialysis today for 3 hours, using the patient's do fistula, with 3 potassium bath, blood flow rate of 450 mL per minute, dialysate flow rate of 600 mL per minute, ultrafiltration 2 L, low dose heparin and Procrit with 25, 000 units during dialysis intravenously. (2) Hypokalemia Is this a current diagnosis for this admission?: YesPlan: Use 3 potassium bath on dialysis. (3) UTI (urinary tract infection) Qualifiers: Urinary tract infection type: site unspecified Hematuria presence: with hematuria Qualified Code(s): N39.0 - Urinary tract infection, site not specified Is this a current diagnosis for this admission?: YesPlan: Due to ESBL Escherichia coli. This was treated with antibiotics. (4) Anemia in chronic kidney disease Is this a current diagnosis for this admission?: YesPlan: We will plan to give Procrit during dialysis when necessary. Patient's hemoglobin is slightly lower today compared to previous likely due to some blood loss during PEG tube placement and intradialytic fluid gain. If hemoglobin continues to go down over the weekend we may need to do blood transfusion. (5) Metabolic encephalopathy Is this a current diagnosis for this admission?: YesPlan: Patient is still confused but I think this is her baseline mentation due to advanced dementia. (6) Contusion of face Is this a current diagnosis for this admission?: YesPlan: Resolved. (7) Hypernatremia Is this a current diagnosis for this admission?: YesPlan: Resolved sodium now borderline low. (8) Adult failure to thrive Is this a current diagnosis for this admission?: YesPlan: Status post PEG tube placement for feeding and nutrition. - Time Time with patient: 15-25 minutes
[2017-01-24] MEDS: MIRTAZAPINE 15 MG TABLET PO SCH (22:29)
[2017-01-25] MEDS: HEPARIN SOD (PORCINE) 5,000 UNIT/ML 1 ML SYRINGE SUBCUT SCH ×3 (05:23→22:06)
[2017-01-25] MEDS: LEVALBUTEROL HCL NEB 1.25 MG/3 ML AMPUL NEB SCH ×3 (08:08→23:26)
[2017-01-25] MEDS: BUDESONIDE NEB 0.5 MG/2 ML AMPUL NEB SCH ×2 (08:08→19:57)
[2017-01-25] MEDS: LANSOPRAZOLE 15 MG TAB.RAP.DR PO SCH (09:35)
[2017-01-25] MEDS: TIMOLOL MALEATE 0.5% OPH SOLN 5 ML OU SCH ×2 (09:35→22:06)
[2017-01-25] MEDS: SITAGLIPTIN PHOSPHATE 25 MG TABLET PO SCH (09:35)
[2017-01-25] MEDS: FUROSEMIDE 40 MG TABLET PO SCH ×2 (09:35→17:15)
[2017-01-25] MEDS: CALCIUM ACETATE 667 MG CAPSULE PO SCH ×3 (09:36→17:16)
[2017-01-25] MEDS: LACTOBACILLUS ACIDOPHILUS 250 MG TAB PO SCH ×2 (09:36→17:15)
[2017-01-25] MEDS: CARVEDILOL 12.5 MG TABLET PO SCH ×2 (09:36→22:06)
[2017-01-25] MEDS: FLUTICASONE NASAL SPRAY 50 MCG/SPRY 120 SPRAY/16 GM NAREB SCH ×2 (09:37→22:06)
[2017-01-25] MEDS: METOPROLOL TARTRATE PF/INJ 5 MG/5 ML SDV IV SCH (09:40)
--- NOTE | 2017-01-25 16:38 | PDOC PROGRESS REPORT ---
Subjective Progress Note for:: 01/25/17 Subjective:: Patient seen by the bedside no new complaints today, the PEG tube is functioning quite well hopefully should be discharged to long-term next week Physical Exam Vital Signs: Temp Pulse Resp BP Pulse Ox 99.7 F 81 16 131/57 H 97 01/25/17 11:42 01/25/17 15:49 01/25/17 15:49 01/25/17 11:42 01/25/17 15:49 Intake & Output 01/24/17 01/25/17 01/26/17 06:59 06:59 06:59 Intake Total 800 320 240 Output Total 520 1650 Balance 280 -1330 240 Weight 84.2 kg 84.2 kg Eye exam: PRESENT: PERRLA Ear exam: PRESENT: normal external ear exam Mouth exam: PRESENT: moist, tongue midline Neck exam: PRESENT: full ROM Cardiovascular exam: PRESENT: RRR, +S1, +S2 Vascular exam: PRESENT: normal capillary refill GI/Abdominal exam: PRESENT: normal bowel sounds, soft Rectal exam: PRESENT: deferred Neurological exam: PRESENT: alert Psychiatric exam: PRESENT: appropriate affect, normal mood Skin exam: PRESENT: dry, intact, warm Results Laboratory Results: 01/24/17 05:30 01/24/17 05:30 01/01/17 01/01/17 01/02/17 23:20 23:20 06:07 Creatine Kinase 23 L 22 L CK-MB (CK-2) 0.36 Troponin I < 0.012 NT-Pro-B Natriuret Pep 01/02/17 01/04/17 06:07 05:45 Creatine Kinase CK-MB (CK-2) 0.47 Troponin I < 0.012 NT-Pro-B Natriuret Pep 05661 H Impressions: Cervical Spine CT 01/01/17 08:43 IMPRESSION: Considerable motion artifact. No fracture identified. If clinical suspicion of fracture persists, repeat imaging when the patient is more stable is recommended. Head CT 01/01/17 08:43 IMPRESSION: No visualized intracranial hemorrhage or fracture. Frontal soft tissue swelling. Significant patient motion limits evaluation of the lower cerebrum, skullbase and posterior fossa. Repeat exam recommended if there is high clinical suspicion. Hip X-Ray 01/01/17 08:43 IMPRESSION: No acute finding. Chest X-Ray 01/13/17 06:00 IMPRESSION: Cardiomegaly and mild central vascular congestion. Low lung volumes with small bilateral pleural effusions and bibasilar airspace opacities, may represent atelectasis or pneumonia. Modified Barium Swallow 01/17/17 00:00 IMPRESSION: NO EVIDENCE OF PENETRATION OR ASPIRATIONPLEASE SEE SPEECH PATHOLOGIST REPORT FOR OTHER FINDINGS AND RECOMMENDATIONS. Assessment & Plan - Diagnosis (1) Urinary tract infection Qualifiers: Urinary tract infection type: site unspecified Hematuria presence: without hematuria Qualified Code(s): N39.0 - Urinary tract infection, site not specified Is this a current diagnosis for this admission?: Yes (2) Metabolic encephalopathy Is this a current diagnosis for this admission?: Yes (3) Severe persistent allergic asthma with acute exacerbation Is this a current diagnosis for this admission?: Yes (4) End-stage renal disease on hemodialysis Is this a current diagnosis for this admission?: Yes (5) Hypoglycemia Is this a current diagnosis for this admission?: Yes (6) Contusion of face Qualifiers: Encounter type: initial encounter Qualified Code(s): S00.83XA - Contusion of other part of head, initial encounter Is this a current diagnosis for this admission?: Yes (7) Septic shock Is this a current diagnosis for this admission?: Yes (8) UTI due to extended-spectrum beta lactamase (ESBL) producing Escherichia coli Is this a current diagnosis for this admission?: Yes (9) Septic shock Is this a current diagnosis for this admission?: Yes
[2017-01-25] MEDS: FOLIC ACID/VITAMIN B COMP W-C CAPSULE PO SCH (17:15)
[2017-01-25] MEDS: ASPIRIN 81 MG TABLET, CHEWABLE PO SCH (17:15)
[2017-01-25] MEDS: INSULIN LISPRO 100 UNIT/ML 3 ML VIAL SUBCUT PRN ×2 (17:16→21:38)
[2017-01-25] MEDS: CITALOPRAM HYDROBROMIDE 20 MG TABLET PO SCH (17:16)
[2017-01-25] MEDS: DOCUSATE SODIUM 100 MG CAPSULE PO SCH (17:16)
[2017-01-25] MEDS: CETIRIZINE HCL ORAL SOLN 5 MG/5 ML UDCUP PO SCH (17:24)
[2017-01-25] MEDS: MIRTAZAPINE 15 MG TABLET PO SCH (22:06)
[2017-01-26] MEDS: METOPROLOL TARTRATE PF/INJ 5 MG/5 ML SDV IV SCH ×3 (00:46→21:55)
[2017-01-26] MEDS: HEPARIN SOD (PORCINE) 5,000 UNIT/ML 1 ML SYRINGE SUBCUT SCH ×3 (05:28→21:54)
[2017-01-26] MEDS: BUDESONIDE NEB 0.5 MG/2 ML AMPUL NEB SCH ×2 (07:57→20:10)
[2017-01-26] MEDS: LEVALBUTEROL HCL NEB 1.25 MG/3 ML AMPUL NEB SCH ×2 (07:58→16:26)
[2017-01-26] MEDS: TIMOLOL MALEATE 0.5% OPH SOLN 5 ML OU SCH ×2 (09:29→21:55)
[2017-01-26] MEDS: LACTOBACILLUS ACIDOPHILUS 250 MG TAB PO SCH ×2 (09:30→17:11)
[2017-01-26] MEDS: CALCIUM ACETATE 667 MG CAPSULE PO SCH ×3 (09:30→17:11)
[2017-01-26] MEDS: FLUTICASONE NASAL SPRAY 50 MCG/SPRY 120 SPRAY/16 GM NAREB SCH ×2 (09:30→21:55)
[2017-01-26] MEDS: FUROSEMIDE 40 MG TABLET PO SCH ×2 (09:30→17:11)
[2017-01-26] MEDS: LANSOPRAZOLE 15 MG TAB.RAP.DR PO SCH (09:30)
[2017-01-26] MEDS: CARVEDILOL 12.5 MG TABLET PO SCH ×2 (09:30→21:54)
[2017-01-26] MEDS: SITAGLIPTIN PHOSPHATE 25 MG TABLET PO SCH (09:30)
[2017-01-26] MEDS: INSULIN LISPRO 100 UNIT/ML 3 ML VIAL SUBCUT PRN ×3 (11:30→21:54)
--- NOTE | 2017-01-26 16:20 | PDOC PROGRESS REPORT ---
Subjective Progress Note for:: 01/26/17 Subjective:: Patient seen by the bedside no new complaints today, the PEG tube is functioning quite well hopefully should be discharged to detention next week Physical Exam Vital Signs: Temp Pulse Resp BP Pulse Ox 98.2 F 100 13 114/54 L 100 01/26/17 12:00 01/26/17 14:00 01/26/17 12:00 01/26/17 12:00 01/26/17 12:00 Intake & Output 01/25/17 01/26/17 01/27/17 06:59 06:59 06:59 Intake Total 320 1493 Output Total 1650 700 Balance -1330 793 Weight 84.2 kg 85.3 kg General appearance: PRESENT: no acute distress Eye exam: PRESENT: PERRLA Respiratory exam: PRESENT: clear to auscultation kennedi Cardiovascular exam: PRESENT: +S1, +S2 Results Laboratory Results: 01/24/17 05:30 01/24/17 05:30 01/01/17 01/01/17 01/02/17 23:20 23:20 06:07 Creatine Kinase 23 L 22 L CK-MB (CK-2) 0.36 Troponin I < 0.012 NT-Pro-B Natriuret Pep 01/02/17 01/04/17 06:07 05:45 Creatine Kinase CK-MB (CK-2) 0.47 Troponin I < 0.012 NT-Pro-B Natriuret Pep 27466 H Impressions: Cervical Spine CT 01/01/17 08:43 IMPRESSION: Considerable motion artifact. No fracture identified. If clinical suspicion of fracture persists, repeat imaging when the patient is more stable is recommended. Head CT 01/01/17 08:43 IMPRESSION: No visualized intracranial hemorrhage or fracture. Frontal soft tissue swelling. Significant patient motion limits evaluation of the lower cerebrum, skullbase and posterior fossa. Repeat exam recommended if there is high clinical suspicion. Hip X-Ray 01/01/17 08:43 IMPRESSION: No acute finding. Chest X-Ray 01/13/17 06:00 IMPRESSION: Cardiomegaly and mild central vascular congestion. Low lung volumes with small bilateral pleural effusions and bibasilar airspace opacities, may represent atelectasis or pneumonia. Modified Barium Swallow 01/17/17 00:00 IMPRESSION: NO EVIDENCE OF PENETRATION OR ASPIRATIONPLEASE SEE SPEECH PATHOLOGIST REPORT FOR OTHER FINDINGS AND RECOMMENDATIONS. Assessment & Plan - Diagnosis (1) Urinary tract infection Qualifiers: Urinary tract infection type: site unspecified Hematuria presence: without hematuria Qualified Code(s): N39.0 - Urinary tract infection, site not specified Is this a current diagnosis for this admission?: Yes (2) Metabolic encephalopathy Is this a current diagnosis for this admission?: Yes (3) Severe persistent allergic asthma with acute exacerbation Is this a current diagnosis for this admission?: Yes (4) End-stage renal disease on hemodialysis Is this a current diagnosis for this admission?: Yes (5) Hypoglycemia Is this a current diagnosis for this admission?: Yes (6) Contusion of face Qualifiers: Encounter type: initial encounter Qualified Code(s): S00.83XA - Contusion of other part of head, initial encounter Is this a current diagnosis for this admission?: Yes (7) Septic shock Is this a current diagnosis for this admission?: Yes (8) UTI due to extended-spectrum beta lactamase (ESBL) producing Escherichia coli Is this a current diagnosis for this admission?: Yes (9) Septic shock Is this a current diagnosis for this admission?: Yes
[2017-01-26] MEDS: CITALOPRAM HYDROBROMIDE 20 MG TABLET PO SCH (17:10)
[2017-01-26] MEDS: ASPIRIN 81 MG TABLET, CHEWABLE PO SCH (17:10)
[2017-01-26] MEDS: CETIRIZINE HCL ORAL SOLN 5 MG/5 ML UDCUP PO SCH (17:11)
[2017-01-26] MEDS: FOLIC ACID/VITAMIN B COMP W-C CAPSULE PO SCH (17:11)
[2017-01-26] MEDS: DOCUSATE SODIUM 100 MG CAPSULE PO SCH (17:38)
[2017-01-26] MEDS: MIRTAZAPINE 15 MG TABLET PO SCH (21:54)
[2017-01-27] MEDS: LEVALBUTEROL HCL NEB 1.25 MG/3 ML AMPUL NEB SCH ×3 (00:03→16:17)
[2017-01-27] MEDS: HEPARIN SOD (PORCINE) 5,000 UNIT/ML 1 ML SYRINGE SUBCUT SCH ×3 (05:20→22:32)
[2017-01-27 07:17] LABS: ABSOLUTE EOSINOPHILS # (AUTO) 0.2 10^3/uL (0.0-0.6); ABSOLUTE LYMPHOCYTES (AUTO) 1.2 10^3/uL (0.5-4.7); ABSOLUTE MONOCYTES (AUTO) 1.2 10^3/uL (0.1-1.4); ABSOLUTE NEUT (AUTO) 6.6 10^3/uL (1.7-8.2); BASOPHILS % (AUTO) 0.5 % (0-2); EOSINOPHILS % (AUTO) 1.8 % (0-6); HEMATOCRIT 20.5 % (36.0-47.0); HGB HCT DIFFERENCE 0.2; MEAN CORPUSCULAR HEMOGLOBIN 27.5 pg (27.0-33.4); MEAN CORPUSCULAR HGB CONC 33.7 g/dL (32.0-36.0); MEAN CORPUSCULAR VOLUME 82 fl (80-97); MONOCYTES % (AUTO) 13.4 % (3-13); RED BLOOD COUNT 2.52 10^6/uL (3.72-5.28); RED CELL DISTRIBUTION WIDTH 16.3 % (11.5-14.0); SEGMENTED NEUTROPHILS % (AUTO) 71.3 % (42-78); WHITE BLOOD COUNT 9.3 10^3/uL (4.0-10.5)
[2017-01-27 07:19] LABS: ANION GAP 9 (5-19); BLOOD UREA NITROGEN 22 mg/dL (7-20); CALCIUM 8.5 mg/dL (8.4-10.2); CARBON DIOXIDE 29 mmol/L (22-30); CHLORIDE 101 mmol/L (98-107); GLUCOSE 177 mg/dL (75-110); SODIUM 139.1 mmol/L (137-145)
[2017-01-27 07:44] LABS: HEMOGLOBIN 6.9 g/dL (12.0-15.5)
[2017-01-27 07:59] LABS: POTASSIUM 2.9 mmol/L (3.6-5.0)
[2017-01-27] MEDS: BUDESONIDE NEB 0.5 MG/2 ML AMPUL NEB SCH ×2 (08:25→19:58)
[2017-01-27] MEDS ORDERED: POTASSIUM CHLORIDE 20 MEQ/15 ML UDCUP PEG ONE (09:00)
[2017-01-27] MEDS: FLUTICASONE NASAL SPRAY 50 MCG/SPRY 120 SPRAY/16 GM NAREB SCH ×2 (10:39→22:34)
[2017-01-27] MEDS: CALCIUM ACETATE 667 MG CAPSULE PO SCH ×3 (10:39→18:21)
--- NOTE | 2017-01-27 10:45 | PDOC PROGRESS REPORT ---
Subjective Progress Note for:: 01/27/17 Subjective:: Awake confused Physical Exam Vital Signs: Temp Pulse Resp BP Pulse Ox 98.0 F 89 16 120/85 98 01/27/17 07:23 01/27/17 08:25 01/27/17 08:25 01/27/17 07:23 01/27/17 08:25 Intake & Output 01/26/17 01/27/17 01/28/17 06:59 06:59 06:59 Intake Total 1493 459 Output Total 700 300 Balance 793 159 Weight 85.3 kg 78.6 kg General appearance: PRESENT: no acute distress, disheveled, obese Head exam: PRESENT: atraumatic, normocephalic Eye exam: PRESENT: conjunctiva pale, EOMI Mouth exam: PRESENT: dry mucosa, neck supple Neck exam: ABSENT: carotid bruit, JVD, lymphadenopathy, thyromegaly Respiratory exam: PRESENT: decreased breath sounds, prolonged expiratory phas, rhonchi, symmetrical, unlabored Cardiovascular exam: PRESENT: irregular rhythm Pulses: PRESENT: normal carotid pulses GI/Abdominal exam: PRESENT: normal bowel sounds, soft. ABSENT: distended, guarding, mass, organolmegaly, rebound, tenderness Rectal exam: PRESENT: deferred Gentrourinary exam: PRESENT: indwelling catheter Musculoskeletal exam: PRESENT: normal inspection Neurological exam: PRESENT: awake Skin exam: PRESENT: dry, warm Results Laboratory Results: 01/27/17 06:47 01/27/17 06:47 01/27/17 01/27/17 06:47 06:47 WBC 9.3 RBC 2.52 L Hgb 6.9 L Hct 20.5 L MCV 82 MCH 27.5 MCHC 33.7 RDW 16.3 H Plt Count 205 Seg Neutrophils % 71.3 Lymphocytes % 13.0 Monocytes % 13.4 H Eosinophils % 1.8 Basophils % 0.5 Absolute Neutrophils 6.6 Absolute Lymphocytes 1.2 Absolute Monocytes 1.2 Absolute Eosinophils 0.2 Absolute Basophils 0.0 Sodium 139.1 Potassium 2.9 L* Chloride 101 Carbon Dioxide 29 Anion Gap 9 BUN 22 H Creatinine 5.10 H Est GFR ( Amer) 10 L Est GFR (Non-Af Amer) 8 L Glucose 177 H Calcium 8.5 01/01/17 01/01/17 01/02/17 23:20 23:20 06:07 Creatine Kinase 23 L 22 L CK-MB (CK-2) 0.36 Troponin I < 0.012 NT-Pro-B Natriuret Pep 01/02/17 01/04/17 06:07 05:45 Creatine Kinase CK-MB (CK-2) 0.47 Troponin I < 0.012 NT-Pro-B Natriuret Pep 34928 H Impressions: Cervical Spine CT 01/01/17 08:43 IMPRESSION: Considerable motion artifact. No fracture identified. If clinical suspicion of fracture persists, repeat imaging when the patient is more stable is recommended. Head CT 01/01/17 08:43 IMPRESSION: No visualized intracranial hemorrhage or fracture. Frontal soft tissue swelling. Significant patient motion limits evaluation of the lower cerebrum, skullbase and posterior fossa. Repeat exam recommended if there is high clinical suspicion. Hip X-Ray 01/01/17 08:43 IMPRESSION: No acute finding. Chest X-Ray 01/13/17 06:00 IMPRESSION: Cardiomegaly and mild central vascular congestion. Low lung volumes with small bilateral pleural effusions and bibasilar airspace opacities, may represent atelectasis or pneumonia. Modified Barium Swallow 01/17/17 00:00 IMPRESSION: NO EVIDENCE OF PENETRATION OR ASPIRATIONPLEASE SEE SPEECH PATHOLOGIST REPORT FOR OTHER FINDINGS AND RECOMMENDATIONS. Assessment & Plan - Diagnosis (1) Dementia Is this a current diagnosis for this admission?: Yes (2) End-stage renal disease on hemodialysis Is this a current diagnosis for this admission?: Yes (3) Respiratory failure Qualifiers: Chronicity: acute Is this a current diagnosis for this admission?: No (4) Septic shock Is this a current diagnosis for this admission?: No
--- NOTE | 2017-01-27 14:16 | PDOC PROGRESS REPORT ---
Subjective Progress Note for:: 01/27/17 Subjective:: Patient underwent percutaneous endoscopic gastrostomy tube placement mass week. PEG site have been adjusted the day after the procedure. Patient appears to be tolerating her feeds and oral mental status has improved. Residuals appear to be normal. Site does not appear to be infected, no discharge,erythema or bleeding is noted. Hemoglobin has been stable over the weekend. Physical Exam Vital Signs: Temp Pulse Resp BP Pulse Ox 97.9 F 80 16 131/50 H 100 01/27/17 11:33 01/27/17 11:33 01/27/17 11:33 01/27/17 11:33 01/27/17 11:33 Intake & Output 01/26/17 01/27/17 01/28/17 06:59 06:59 06:59 Intake Total 1493 459 Output Total 700 300 Balance 793 159 Weight 85.3 kg 78.6 kg 78.6 kg General appearance: PRESENT: no acute distress, well-developed Head exam: PRESENT: atraumatic, normocephalic Eye exam: PRESENT: EOMI, PERRLA. ABSENT: periorbital swelling, scleral icterus Mouth exam: PRESENT: neck supple Throat exam: ABSENT: tonsillar exudate Neck exam: ABSENT: meningismus, tenderness, thyromegaly Respiratory exam: PRESENT: crackles, symmetrical, unlabored. ABSENT: accessory muscle use, wheezes Cardiovascular exam: PRESENT: RRR, +S1, +S2 GI/Abdominal exam: PRESENT: soft. ABSENT: Calderon's sign, rebound, rigid Extremities exam: ABSENT: joint swelling Neurological exam: PRESENT: CN II-XII grossly intact Skin exam: PRESENT: normal color. ABSENT: cyanosis, erythema, jaundice, mottled , vesicles Results Laboratory Results: 01/27/17 06:47 01/27/17 06:47 01/27/17 01/27/17 01/27/17 06:47 06:47 11:57 WBC 9.3 RBC 2.52 L Hgb 6.9 L Hct 20.5 L MCV 82 MCH 27.5 MCHC 33.7 RDW 16.3 H Plt Count 205 Seg Neutrophils % 71.3 Lymphocytes % 13.0 Monocytes % 13.4 H Eosinophils % 1.8 Basophils % 0.5 Absolute Neutrophils 6.6 Absolute Lymphocytes 1.2 Absolute Monocytes 1.2 Absolute Eosinophils 0.2 Absolute Basophils 0.0 Sodium 139.1 Potassium 2.9 L* Chloride 101 Carbon Dioxide 29 Anion Gap 9 BUN 22 H Creatinine 5.10 H Est GFR ( Amer) 10 L Est GFR (Non-Af Amer) 8 L Glucose 177 H Calcium 8.5 Blood Type O POSITIVE Antibody Screen NEGATIVE 01/01/17 01/01/17 01/02/17 23:20 23:20 06:07 Creatine Kinase 23 L 22 L CK-MB (CK-2) 0.36 Troponin I < 0.012 NT-Pro-B Natriuret Pep 01/02/17 01/04/17 06:07 05:45 Creatine Kinase CK-MB (CK-2) 0.47 Troponin I < 0.012 NT-Pro-B Natriuret Pep 63012 H Impressions: Cervical Spine CT 01/01/17 08:43 IMPRESSION: Considerable motion artifact. No fracture identified. If clinical suspicion of fracture persists, repeat imaging when the patient is more stable is recommended. Head CT 01/01/17 08:43 IMPRESSION: No visualized intracranial hemorrhage or fracture. Frontal soft tissue swelling. Significant patient motion limits evaluation of the lower cerebrum, skullbase and posterior fossa. Repeat exam recommended if there is high clinical suspicion. Hip X-Ray 01/01/17 08:43 IMPRESSION: No acute finding. Chest X-Ray 01/13/17 06:00 IMPRESSION: Cardiomegaly and mild central vascular congestion. Low lung volumes with small bilateral pleural effusions and bibasilar airspace opacities, may represent atelectasis or pneumonia. Modified Barium Swallow 01/17/17 00:00 IMPRESSION: NO EVIDENCE OF PENETRATION OR ASPIRATIONPLEASE SEE SPEECH PATHOLOGIST REPORT FOR OTHER FINDINGS AND RECOMMENDATIONS. Assessment & Plan - Diagnosis (2) Adult failure to thrive Is this a current diagnosis for this admission?: YesPlan: Status post percutaneous gastrostomy tube placement Appears to be functioning well. Continue dressing changes. Tube feeds is recommended. Please call if there are any further problems or questions. Hemoglobin is stable. - Time Time Spent with patient: 15-24 minutes
[2017-01-27] MEDS: HEPARIN SOD (PORCINE) 1,000 UNIT/ML 10 ML VIAL IV PRN (15:07)
[2017-01-27] MEDS: EPOETIN ALFA INJ 20000 UNIT/1 ML VIAL (RENAL) IV PRN (15:50)
[2017-01-27] MEDS: METOPROLOL TARTRATE PF/INJ 5 MG/5 ML SDV IV SCH ×2 (17:59→22:31)
[2017-01-27] MEDS: CARVEDILOL 12.5 MG TABLET PO SCH ×2 (18:00→22:30)
[2017-01-27] MEDS: LANSOPRAZOLE 15 MG TAB.RAP.DR PO SCH (18:20)
[2017-01-27] MEDS: CITALOPRAM HYDROBROMIDE 20 MG TABLET PO SCH (18:20)
[2017-01-27] MEDS: ASPIRIN 81 MG TABLET, CHEWABLE PO SCH (18:21)
[2017-01-27] MEDS: LACTOBACILLUS ACIDOPHILUS 250 MG TAB PO SCH (18:21)
[2017-01-27] MEDS: FUROSEMIDE 40 MG TABLET PO SCH (18:22)
[2017-01-27] MEDS: SITAGLIPTIN PHOSPHATE 25 MG TABLET PO SCH (18:22)
[2017-01-27] MEDS: CETIRIZINE HCL ORAL SOLN 5 MG/5 ML UDCUP PO SCH (18:22)
[2017-01-27] MEDS: FOLIC ACID/VITAMIN B COMP W-C CAPSULE PO SCH (18:22)
[2017-01-27] MEDS: DOCUSATE SODIUM 100 MG CAPSULE PO SCH (18:23)
[2017-01-27] MEDS: TIMOLOL MALEATE 0.5% OPH SOLN 5 ML OU SCH ×2 (18:23→22:33)
--- NOTE | 2017-01-27 19:45 | PDOC PROGRESS REPORT ---
Subjective Progress Note for:: 01/27/17 Subjective:: I saw the patient on dialysis at around 1:30 PM today. She was lethargic and only wakes up for a few seconds when prompted and goes right back to sleep. She was transfused 2 units of packed RBC during dialysis and tolerated it well. We only obtain an ultrafiltration of 2.2 L because of her blood pressure. She is currently on PEG tube feeding started over the weekend. During dialysis when dialysis nurse informed me that her AV fistula is not working properly and that the blood flow has been reduced. Physical Exam Vital Signs: Temp Pulse Resp BP Pulse Ox 97.9 F 85 20 111/52 L 96 01/27/17 15:26 01/27/17 16:17 01/27/17 16:17 01/27/17 15:26 01/27/17 16:17 Intake & Output 01/26/17 01/27/17 01/28/17 06:59 06:59 06:59 Intake Total 8296 501 3872 Output Total 700 300 Balance 100 511 3448 Weight 85.3 kg 78.6 kg 78.6 kg Vital signs during dialysis when I saw her this afternoon: Blood pressure 123/60 , heart rate 76, blood flow rate 400 mL per minute, dialysate flow rate 600 mL per minute. Exam: General appearance: PRESENT: no acute distress, lethargic, well-developed, well- nourished Head exam: PRESENT: atraumatic, normocephalic Eye exam: PRESENT: conjunctiva pale, PERRLA. ABSENT: scleral icterus Neck exam: ABSENT: JVD Respiratory exam: PRESENT: Diminished breath sounds. ABSENT: crackles, rales, rhonchi, unlabored, wheezes Cardiovascular exam: PRESENT: Irregular rate rhythm -+S1, +S2. ABSENT: diastolic murmur, systolic murmur GI/Abdominal exam: PRESENT: normal bowel sounds, soft. PEG tube in place ABSENT : guarding, mass, tenderness Extremities exam: ABSENT: No edema on lower extremities; mild right upper extremity edema. Neurological exam: PRESENT: alert, awake, oriented to person, place and time. Skin exam: PRESENT: dry, warm, Cardiovascular exam: PRESENT: +S1, +S2 GI/Abdominal exam: PRESENT: normal bowel sounds, soft. ABSENT: distended, guarding, tenderness Results Laboratory Results: 01/27/17 06:47 01/27/17 06:47 01/27/17 01/27/17 01/27/17 06:47 06:47 11:57 WBC 9.3 RBC 2.52 L Hgb 6.9 L Hct 20.5 L MCV 82 MCH 27.5 MCHC 33.7 RDW 16.3 H Plt Count 205 Seg Neutrophils % 71.3 Lymphocytes % 13.0 Monocytes % 13.4 H Eosinophils % 1.8 Basophils % 0.5 Absolute Neutrophils 6.6 Absolute Lymphocytes 1.2 Absolute Monocytes 1.2 Absolute Eosinophils 0.2 Absolute Basophils 0.0 Sodium 139.1 Potassium 2.9 L* Chloride 101 Carbon Dioxide 29 Anion Gap 9 BUN 22 H Creatinine 5.10 H Est GFR ( Amer) 10 L Est GFR (Non-Af Amer) 8 L Glucose 177 H Calcium 8.5 Blood Type O POSITIVE Antibody Screen NEGATIVE 01/01/17 01/01/17 01/02/17 23:20 23:20 06:07 Creatine Kinase 23 L 22 L CK-MB (CK-2) 0.36 Troponin I < 0.012 NT-Pro-B Natriuret Pep 01/02/17 01/04/17 06:07 05:45 Creatine Kinase CK-MB (CK-2) 0.47 Troponin I < 0.012 NT-Pro-B Natriuret Pep 95278 H Impressions: Cervical Spine CT 01/01/17 08:43 IMPRESSION: Considerable motion artifact. No fracture identified. If clinical suspicion of fracture persists, repeat imaging when the patient is more stable is recommended. Head CT 01/01/17 08:43 IMPRESSION: No visualized intracranial hemorrhage or fracture. Frontal soft tissue swelling. Significant patient motion limits evaluation of the lower cerebrum, skullbase and posterior fossa. Repeat exam recommended if there is high clinical suspicion. Hip X-Ray 01/01/17 08:43 IMPRESSION: No acute finding. Chest X-Ray 01/13/17 06:00 IMPRESSION: Cardiomegaly and mild central vascular congestion. Low lung volumes with small bilateral pleural effusions and bibasilar airspace opacities, may represent atelectasis or pneumonia. Modified Barium Swallow 01/17/17 00:00 IMPRESSION: NO EVIDENCE OF PENETRATION OR ASPIRATIONPLEASE SEE SPEECH PATHOLOGIST REPORT FOR OTHER FINDINGS AND RECOMMENDATIONS. Assessment & Plan - Diagnosis (1) End-stage renal disease on hemodialysis Is this a current diagnosis for this admission?: YesPlan: We did dialysis today for 3 hours, using the patient's AV fistula, with for potassium bath, blood flow rate of 400 mL per minute, dialysate flow rate of 600 mL per minute, ultrafiltration 2-3 L as tolerated, low dose heparin and Procrit with 20,000 units during dialysis intravenously. Patient's ultrafiltration was limited by hypotension. Nevertheless patient tolerated procedure well. (2) Dialysis AV fistula malfunction Is this a current diagnosis for this admission?: YesPlan: I will consult Dr. Jeffries to do a fistulogram and possible intervention for her AV fistula prior to discharge. I discussed this with Dr. Jeffries and he agreed to do it tomorrow. I also informed Dr. Richardson about this. Patient is to be nothing by mouth post midnight for this procedure tomorrow. (3) Hypokalemia Is this a current diagnosis for this admission?: YesPlan: We used four potassium bath and will monitor potassium and see if we need to supplement more. (4) UTI (urinary tract infection) Qualifiers: Urinary tract infection type: site unspecified Hematuria presence: with hematuria Qualified Code(s): N39.0 - Urinary tract infection, site not specified Is this a current diagnosis for this admission?: YesPlan: Due to ESBL Escherichia coli. This was treated with antibiotics. (5) Anemia in chronic kidney disease Is this a current diagnosis for this admission?: YesPlan: Blood transfusion with 2 units packed RBC was given today during dialysis. Procrit 20,000 units was also given today. (6) Metabolic encephalopathy Is this a current diagnosis for this admission?: YesPlan: Patient is still confused but I think this is her baseline mentation due to advanced dementia. (7) Adult failure to thrive Is this a current diagnosis for this admission?: YesPlan: Currently being fed through the PEG tube. Patient is tolerating it well. - Time Time with patient: 15-25 minutes
--- NOTE | 2017-01-27 20:15 | PDOC PROGRESS REPORT ---
Subjective Progress Note for:: 01/27/17 Subjective:: She is anemic on she was transfused with packed red blood cells, she will respond to verbal commands and then she lapsed back to sleepiness Physical Exam Vital Signs: Temp Pulse Resp BP Pulse Ox 97.9 F 80 16 111/52 L 96 01/27/17 15:26 01/27/17 20:00 01/27/17 20:00 01/27/17 15:26 01/27/17 16:17 Intake & Output 01/26/17 01/27/17 01/28/17 06:59 06:59 06:59 Intake Total 6342 179 7614 Output Total 700 300 Balance 586 526 3201 Weight 85.3 kg 78.6 kg 78.6 kg General appearance: PRESENT: no acute distress Eye exam: PRESENT: PERRLA Respiratory exam: PRESENT: clear to auscultation kennedi Cardiovascular exam: PRESENT: +S1, +S2 GI/Abdominal exam: PRESENT: soft Results Laboratory Results: 01/27/17 06:47 01/27/17 06:47 01/27/17 01/27/17 01/27/17 06:47 06:47 11:57 WBC 9.3 RBC 2.52 L Hgb 6.9 L Hct 20.5 L MCV 82 MCH 27.5 MCHC 33.7 RDW 16.3 H Plt Count 205 Seg Neutrophils % 71.3 Lymphocytes % 13.0 Monocytes % 13.4 H Eosinophils % 1.8 Basophils % 0.5 Absolute Neutrophils 6.6 Absolute Lymphocytes 1.2 Absolute Monocytes 1.2 Absolute Eosinophils 0.2 Absolute Basophils 0.0 Sodium 139.1 Potassium 2.9 L* Chloride 101 Carbon Dioxide 29 Anion Gap 9 BUN 22 H Creatinine 5.10 H Est GFR ( Amer) 10 L Est GFR (Non-Af Amer) 8 L Glucose 177 H Calcium 8.5 Blood Type O POSITIVE Antibody Screen NEGATIVE 01/01/17 01/01/17 01/02/17 23:20 23:20 06:07 Creatine Kinase 23 L 22 L CK-MB (CK-2) 0.36 Troponin I < 0.012 NT-Pro-B Natriuret Pep 01/02/17 01/04/17 06:07 05:45 Creatine Kinase CK-MB (CK-2) 0.47 Troponin I < 0.012 NT-Pro-B Natriuret Pep 48274 H Impressions: Cervical Spine CT 01/01/17 08:43 IMPRESSION: Considerable motion artifact. No fracture identified. If clinical suspicion of fracture persists, repeat imaging when the patient is more stable is recommended. Head CT 01/01/17 08:43 IMPRESSION: No visualized intracranial hemorrhage or fracture. Frontal soft tissue swelling. Significant patient motion limits evaluation of the lower cerebrum, skullbase and posterior fossa. Repeat exam recommended if there is high clinical suspicion. Hip X-Ray 01/01/17 08:43 IMPRESSION: No acute finding. Chest X-Ray 01/13/17 06:00 IMPRESSION: Cardiomegaly and mild central vascular congestion. Low lung volumes with small bilateral pleural effusions and bibasilar airspace opacities, may represent atelectasis or pneumonia. Modified Barium Swallow 01/17/17 00:00 IMPRESSION: NO EVIDENCE OF PENETRATION OR ASPIRATIONPLEASE SEE SPEECH PATHOLOGIST REPORT FOR OTHER FINDINGS AND RECOMMENDATIONS. Assessment & Plan - Diagnosis (1) Urinary tract infection Qualifiers: Urinary tract infection type: site unspecified Hematuria presence: without hematuria Qualified Code(s): N39.0 - Urinary tract infection, site not specified Is this a current diagnosis for this admission?: Yes (2) Metabolic encephalopathy Is this a current diagnosis for this admission?: Yes (3) Severe persistent allergic asthma with acute exacerbation Is this a current diagnosis for this admission?: Yes (4) End-stage renal disease on hemodialysis Is this a current diagnosis for this admission?: Yes (5) Hypoglycemia Is this a current diagnosis for this admission?: Yes (6) Contusion of face Qualifiers: Encounter type: initial encounter Qualified Code(s): S00.83XA - Contusion of other part of head, initial encounter Is this a current diagnosis for this admission?: Yes (7) Septic shock Is this a current diagnosis for this admission?: No (8) UTI due to extended-spectrum beta lactamase (ESBL) producing Escherichia coli Is this a current diagnosis for this admission?: Yes (9) Septic shock Is this a current diagnosis for this admission?: Yes
[2017-01-27 21:12] LABS: ABSOLUTE EOSINOPHILS # (AUTO) 0.1 10^3/uL (0.0-0.6); ABSOLUTE LYMPHOCYTES (AUTO) 1.1 10^3/uL (0.5-4.7); ABSOLUTE MONOCYTES (AUTO) 1.1 10^3/uL (0.1-1.4); ABSOLUTE NEUT (AUTO) 7.5 10^3/uL (1.7-8.2); BASOPHILS % (AUTO) 0.5 % (0-2); EOSINOPHILS % (AUTO) 0.8 % (0-6); HEMATOCRIT 28.6 % (36.0-47.0); HGB HCT DIFFERENCE 0.8; LYMPHOCYTES % (AUTO) 11.4 % (13-45); MEAN CORPUSCULAR HEMOGLOBIN 28.1 pg (27.0-33.4); MEAN CORPUSCULAR HGB CONC 34.2 g/dL (32.0-36.0); MEAN CORPUSCULAR VOLUME 82 fl (80-97); MONOCYTES % (AUTO) 11.2 % (3-13); RED BLOOD COUNT 3.48 10^6/uL (3.72-5.28); RED CELL DISTRIBUTION WIDTH 16.2 % (11.5-14.0); SEGMENTED NEUTROPHILS % (AUTO) 76.1 % (42-78); WHITE BLOOD COUNT 9.9 10^3/uL (4.0-10.5)
[2017-01-27 21:21] LABS: HEMOGLOBIN 9.8 g/dL (12.0-15.5)
[2017-01-27] MEDS: MIRTAZAPINE 15 MG TABLET PO SCH (22:30)
[2017-01-28] MEDS: LEVALBUTEROL HCL NEB 1.25 MG/3 ML AMPUL NEB SCH ×4 (00:22→23:55)
[2017-01-28] MEDS: HEPARIN SOD (PORCINE) 5,000 UNIT/ML 1 ML SYRINGE SUBCUT SCH (06:46)
[2017-01-28 06:53] LABS: ABSOLUTE EOSINOPHILS # (AUTO) 0.1 10^3/uL (0.0-0.6); ABSOLUTE LYMPHOCYTES (AUTO) 1.2 10^3/uL (0.5-4.7); ABSOLUTE MONOCYTES (AUTO) 1.3 10^3/uL (0.1-1.4); ABSOLUTE NEUT (AUTO) 6.4 10^3/uL (1.7-8.2); BASOPHILS % (AUTO) 0.4 % (0-2); HEMATOCRIT 30.7 % (36.0-47.0); HEMOGLOBIN 10.4 g/dL (12.0-15.5); HGB HCT DIFFERENCE 0.5; LYMPHOCYTES % (AUTO) 13.2 % (13-45); MEAN CORPUSCULAR HGB CONC 33.9 g/dL (32.0-36.0); MEAN CORPUSCULAR VOLUME 83 fl (80-97); MONOCYTES % (AUTO) 14.1 % (3-13); RED BLOOD COUNT 3.71 10^6/uL (3.72-5.28); RED CELL DISTRIBUTION WIDTH 16.4 % (11.5-14.0); SEGMENTED NEUTROPHILS % (AUTO) 71.3 % (42-78); WHITE BLOOD COUNT 8.9 10^3/uL (4.0-10.5)
[2017-01-28 07:25] LABS: ANION GAP 10 (5-19); BLOOD UREA NITROGEN 18 mg/dL (7-20); CALCIUM 8.5 mg/dL (8.4-10.2); CARBON DIOXIDE 30 mmol/L (22-30); CHLORIDE 101 mmol/L (98-107); CREATININE RESULT 3.59 mg/dL (0.52-1.25); GLUCOSE 306 mg/dL (75-110); POTASSIUM 3.6 mmol/L (3.6-5.0)
[2017-01-28] MEDS: CALCIUM ACETATE 667 MG CAPSULE PO SCH ×3 (07:38→17:00)
[2017-01-28] MEDS: INSULIN LISPRO 100 UNIT/ML 3 ML VIAL SUBCUT PRN (07:38)
[2017-01-28] MEDS: BUDESONIDE NEB 0.5 MG/2 ML AMPUL NEB SCH ×2 (07:44→19:38)
[2017-01-28] MEDS: FUROSEMIDE 40 MG TABLET PO SCH ×2 (09:03→17:00)
[2017-01-28] MEDS: LACTOBACILLUS ACIDOPHILUS 250 MG TAB PO SCH ×2 (09:03→17:00)
[2017-01-28] MEDS: METOPROLOL TARTRATE PF/INJ 5 MG/5 ML SDV IV SCH ×2 (09:04→20:53)
[2017-01-28] MEDS: LANSOPRAZOLE 15 MG TAB.RAP.DR PO SCH (09:04)
[2017-01-28] MEDS: CARVEDILOL 12.5 MG TABLET PO SCH ×2 (09:04→20:52)
[2017-01-28] MEDS: FLUTICASONE NASAL SPRAY 50 MCG/SPRY 120 SPRAY/16 GM NAREB SCH ×2 (09:04→20:54)
[2017-01-28] MEDS: TIMOLOL MALEATE 0.5% OPH SOLN 5 ML OU SCH ×2 (09:04→20:54)
[2017-01-28] MEDS: SITAGLIPTIN PHOSPHATE 25 MG TABLET PO SCH (09:05)
[2017-01-28] MEDS ORDERED: FENTANYL CITRATE INJ/PF 100 MCG/2 ML AMPUL ONE (13:27)
[2017-01-28] MEDS ORDERED: MIDAZOLAM 2 MG/2 ML INJ ONE (13:27)
[2017-01-28] MEDS ORDERED: HEPARIN SOD (PORCINE) 5,000 UNIT/ML 1 ML SYRINGE ONE (13:28)
[2017-01-28] MEDS ORDERED: LIDOCAINE 0.5% INJ-PF (5 MG/ML) 50 ML SDV ONE (14:26)
--- NOTE | 2017-01-28 16:51 | Operative Report ---
Operative Report DATE OF SURGERY: 01/23/17 PREOPERATIVE DIAGNOSIS: #1 malfunctioning arteriovenous fistula right transposed basilic to brachial. #2 end-stage renal disease on hemodialysis. # 3 at the per comorbidities. POSTOPERATIVE DIAGNOSIS: #1 malfunctioning arteriovenous fistula right transposed basilic to brachial. #2 end-stage renal disease on hemodialysis. # 3 at the per comorbidities. OPERATION: #1 needle access into fistula. #2 angioplasty central. #3 angiogram and interpretation. SURGEON: DAYTON MISHRA 1ST MENTAL HEALTH PROGRAM DIRECTOR: none ANESTHESIA: Moderate Sedation - 4 mg of Versed, 25 g of fentanyl. Conscious sedation monitoring time 45 minutes. TISSUE REMOVED OR ALTERED: None COMPLICATIONS: None ESTIMATED BLOOD LOSS: 2 mL. INTRAOPERATIVE FINDINGS: Upper well-founded arteriovenous fistula, satisfactory caliber. Arterial inflow seems satisfactory although it is difficult to visualize the actual anastomosis due to rapid flow. 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 After angioplasty residual 10% appreciated. Any further interventions may need dedicated retrograde look into the arterial system. PROCEDURE: PROCEDURE: After verifying the procedure and having obtained informed consent, the patient's right arm was prepared with Chlorhexidine and draped out with sterile linen. Local anesthesia infiltrated. Percutaneous access into the fistula ,[ antegrade], obtained about [2 cm] from the arteriovenous anastomosis using a micro puncture needle followed by micro puncture wire and then a micro puncture catheter. Angiogram demonstrated the aforementioned findings. Angioplasty was elected. A 0.035 [place] wire was inserted, and over this, a 6 [place] short introducer was placed, this was followed by a [8] angioplasty balloon . Angioplasty was done at the culprit lesion serially done from the upper fistula down to the introducer. Inflating using hand injection through a 3 mils syringe..]. Completion angiogram demonstrated [satisfactory result]. The instrumentation was now withdrawn over pressure for 10 minutes. Dressings applied, procedure concluded. DICTATING PHYSICIAN: DAYTON MISRHA M.D. cc: DAYTON MISHRA M.D. ([id number]) >>
[2017-01-28] MEDS: CITALOPRAM HYDROBROMIDE 20 MG TABLET PO SCH (17:00)
[2017-01-28] MEDS: ASPIRIN 81 MG TABLET, CHEWABLE PO SCH (17:00)
[2017-01-28] MEDS: CETIRIZINE HCL ORAL SOLN 5 MG/5 ML UDCUP PO SCH (17:01)
[2017-01-28] MEDS: FOLIC ACID/VITAMIN B COMP W-C CAPSULE PO SCH (17:02)
[2017-01-28] MEDS: DOCUSATE SODIUM 100 MG CAPSULE PO SCH (17:05)
--- NOTE | 2017-01-28 19:22 | PDOC PROGRESS REPORT ---
Subjective Progress Note for:: 01/28/17 Subjective:: confused Physical Exam Vital Signs: Temp Pulse Resp BP Pulse Ox 97.9 F 65 18 138/69 H 100 01/28/17 14:54 01/28/17 16:14 01/28/17 16:14 01/28/17 14:54 01/28/17 16:14 Intake & Output 01/27/17 01/28/17 01/29/17 06:59 06:59 06:59 Intake Total 459 1464 0 Output Total 300 2203 125 Balance 159 -739 -125 Weight 78.6 kg 78.9 kg General appearance: PRESENT: no acute distress, disheveled, obese Head exam: PRESENT: normocephalic Eye exam: PRESENT: conjunctiva pale, EOMI Mouth exam: PRESENT: dry mucosa, neck supple Neck exam: ABSENT: carotid bruit, JVD, lymphadenopathy, thyromegaly Respiratory exam: PRESENT: crackles, decreased breath sounds, rhonchi Cardiovascular exam: PRESENT: irregular rhythm Pulses: PRESENT: normal radial pulses GI/Abdominal exam: PRESENT: normal bowel sounds, soft. ABSENT: distended, guarding, mass, organolmegaly, rebound, tenderness Rectal exam: PRESENT: deferred Gentrourinary exam: PRESENT: indwelling catheter Neurological exam: PRESENT: awake Skin exam: PRESENT: dry, warm Results Laboratory Results: 01/28/17 06:25 01/28/17 06:25 01/27/17 01/28/17 01/28/17 21:05 06:25 06:25 WBC 9.9 8.9 RBC 3.48 L 3.71 L Hgb 9.8 L D 10.4 L Hct 28.6 L 30.7 L MCV 82 83 MCH 28.1 28.0 MCHC 34.2 33.9 RDW 16.2 H 16.4 H Plt Count 175 210 Seg Neutrophils % 76.1 71.3 Lymphocytes % 11.4 L 13.2 Monocytes % 11.2 14.1 H Eosinophils % 0.8 1.0 Basophils % 0.5 0.4 Absolute Neutrophils 7.5 6.4 Absolute Lymphocytes 1.1 1.2 Absolute Monocytes 1.1 1.3 Absolute Eosinophils 0.1 0.1 Absolute Basophils 0.0 0.0 Sodium 141.0 Potassium 3.6 Chloride 101 Carbon Dioxide 30 Anion Gap 10 BUN 18 Creatinine 3.59 H Est GFR ( Amer) 14 L Est GFR (Non-Af Amer) 12 L Glucose 306 H Calcium 8.5 01/01/17 01/01/17 01/02/17 23:20 23:20 06:07 Creatine Kinase 23 L 22 L CK-MB (CK-2) 0.36 Troponin I < 0.012 NT-Pro-B Natriuret Pep 01/02/17 01/04/17 06:07 05:45 Creatine Kinase CK-MB (CK-2) 0.47 Troponin I < 0.012 NT-Pro-B Natriuret Pep 03745 H Impressions: Cervical Spine CT 01/01/17 08:43 IMPRESSION: Considerable motion artifact. No fracture identified. If clinical suspicion of fracture persists, repeat imaging when the patient is more stable is recommended. Head CT 01/01/17 08:43 IMPRESSION: No visualized intracranial hemorrhage or fracture. Frontal soft tissue swelling. Significant patient motion limits evaluation of the lower cerebrum, skullbase and posterior fossa. Repeat exam recommended if there is high clinical suspicion. Hip X-Ray 01/01/17 08:43 IMPRESSION: No acute finding. Chest X-Ray 01/13/17 06:00 IMPRESSION: Cardiomegaly and mild central vascular congestion. Low lung volumes with small bilateral pleural effusions and bibasilar airspace opacities, may represent atelectasis or pneumonia. Modified Barium Swallow 01/17/17 00:00 IMPRESSION: NO EVIDENCE OF PENETRATION OR ASPIRATIONPLEASE SEE SPEECH PATHOLOGIST REPORT FOR OTHER FINDINGS AND RECOMMENDATIONS. Fistulogram 01/28/17 00:00 IMPRESSION: Intraoperative imaging as described. NEWSPAPER STUFFER, Brachiocephalic 01/28/17 00:00 IMPRESSION: Please see combined report for performance of procedure and radiologic supervision and interpretation. Assessment & Plan - Diagnosis (1) Dementia Is this a current diagnosis for this admission?: Yes (2) End-stage renal disease on hemodialysis Is this a current diagnosis for this admission?: Yes (3) Respiratory failure Qualifiers: Chronicity: acute Is this a current diagnosis for this admission?: No (4) Septic shock Is this a current diagnosis for this admission?: No
--- NOTE | 2017-01-28 20:11 | PDOC PROGRESS REPORT ---
Subjective Progress Note for:: 01/28/17 Subjective:: Patient's condition is overall poor cognition is extremely poor, for the most part she is sleepy she is not participating in any meaningful activity. Prognosis remains poor in this patient she has advanced dementia, the AV fistula issue seems to be fixed today, she hopefully will be dialyzed tomorrow and then [facility] and probably long-term stay Physical Exam Vital Signs: Temp Pulse Resp BP Pulse Ox 97.9 F 73 18 138/69 H 100 01/28/17 14:54 01/28/17 19:38 01/28/17 19:38 01/28/17 14:54 01/28/17 19:38 Intake & Output 01/27/17 01/28/17 01/29/17 06:59 06:59 06:59 Intake Total 459 1464 0 Output Total 300 2203 125 Balance 159 -739 -125 Weight 78.6 kg 78.9 kg General appearance: PRESENT: no acute distress Neck exam: PRESENT: full ROM Cardiovascular exam: PRESENT: RRR, +S1, +S2 Vascular exam: PRESENT: normal capillary refill GI/Abdominal exam: PRESENT: normal bowel sounds, soft Rectal exam: PRESENT: deferred Neurological exam: PRESENT: awake, CN II-XII grossly intact. ABSENT: motor sensory deficit Skin exam: PRESENT: dry, intact, warm. ABSENT: cyanosis, rash Results Laboratory Results: 01/28/17 06:25 01/28/17 06:25 01/27/17 01/28/17 01/28/17 21:05 06:25 06:25 WBC 9.9 8.9 RBC 3.48 L 3.71 L Hgb 9.8 L D 10.4 L Hct 28.6 L 30.7 L MCV 82 83 MCH 28.1 28.0 MCHC 34.2 33.9 RDW 16.2 H 16.4 H Plt Count 175 210 Seg Neutrophils % 76.1 71.3 Lymphocytes % 11.4 L 13.2 Monocytes % 11.2 14.1 H Eosinophils % 0.8 1.0 Basophils % 0.5 0.4 Absolute Neutrophils 7.5 6.4 Absolute Lymphocytes 1.1 1.2 Absolute Monocytes 1.1 1.3 Absolute Eosinophils 0.1 0.1 Absolute Basophils 0.0 0.0 Sodium 141.0 Potassium 3.6 Chloride 101 Carbon Dioxide 30 Anion Gap 10 BUN 18 Creatinine 3.59 H Est GFR ( Amer) 14 L Est GFR (Non-Af Amer) 12 L Glucose 306 H Calcium 8.5 01/01/17 01/01/17 01/02/17 23:20 23:20 06:07 Creatine Kinase 23 L 22 L CK-MB (CK-2) 0.36 Troponin I < 0.012 NT-Pro-B Natriuret Pep 01/02/17 01/04/17 06:07 05:45 Creatine Kinase CK-MB (CK-2) 0.47 Troponin I < 0.012 NT-Pro-B Natriuret Pep 59529 H Impressions: Cervical Spine CT 01/01/17 08:43 IMPRESSION: Considerable motion artifact. No fracture identified. If clinical suspicion of fracture persists, repeat imaging when the patient is more stable is recommended. Head CT 01/01/17 08:43 IMPRESSION: No visualized intracranial hemorrhage or fracture. Frontal soft tissue swelling. Significant patient motion limits evaluation of the lower cerebrum, skullbase and posterior fossa. Repeat exam recommended if there is high clinical suspicion. Hip X-Ray 01/01/17 08:43 IMPRESSION: No acute finding. Chest X-Ray 01/13/17 06:00 IMPRESSION: Cardiomegaly and mild central vascular congestion. Low lung volumes with small bilateral pleural effusions and bibasilar airspace opacities, may represent atelectasis or pneumonia. Modified Barium Swallow 01/17/17 00:00 IMPRESSION: NO EVIDENCE OF PENETRATION OR ASPIRATIONPLEASE SEE SPEECH PATHOLOGIST REPORT FOR OTHER FINDINGS AND RECOMMENDATIONS. Fistulogram 01/28/17 00:00 IMPRESSION: Intraoperative imaging as described. HANDICAPPED TEACHER, Brachiocephalic 01/28/17 00:00 IMPRESSION: Please see combined report for performance of procedure and radiologic supervision and interpretation. Assessment & Plan - Diagnosis (1) Urinary tract infection Qualifiers: Urinary tract infection type: site unspecified Hematuria presence: without hematuria Qualified Code(s): N39.0 - Urinary tract infection, site not specified Is this a current diagnosis for this admission?: Yes (2) Metabolic encephalopathy Is this a current diagnosis for this admission?: Yes (3) Severe persistent allergic asthma with acute exacerbation Is this a current diagnosis for this admission?: Yes (4) End-stage renal disease on hemodialysis Is this a current diagnosis for this admission?: Yes (5) Hypoglycemia Is this a current diagnosis for this admission?: Yes (6) Contusion of face Qualifiers: Encounter type: initial encounter Qualified Code(s): S00.83XA - Contusion of other part of head, initial encounter Is this a current diagnosis for this admission?: Yes (7) Septic shock Is this a current diagnosis for this admission?: No (8) UTI due to extended-spectrum beta lactamase (ESBL) producing Escherichia coli Is this a current diagnosis for this admission?: Yes (9) Septic shock Is this a current diagnosis for this admission?: Yes
[2017-01-28] MEDS: MIRTAZAPINE 15 MG TABLET PO SCH (20:52)
--- NOTE | 2017-01-28 22:43 | OPERATIVE REPORT E ---
Operative Report NAME: VAISHALI GODOY : 1930 AGE: 86Y DATE OF SURGERY: 01/28/2017 ROOM: 528 SURGEON: DUANE LUNA M.D. PREOPERATIVE DIAGNOSIS: Decubitus ulcer with necrotic tissue and fluctuation. POSTOPERATIVE DIAGNOSIS: Decubitus ulcer with necrotic tissue and fluctuation. PROCEDURE IN DETAIL: Sharp debridement of necrotic tissue at the sacral decubitus area. Necrotic tissue with involvement of skin and subcutaneous tissue down to the muscle layer. Decubitus ulcer roughly measured 6 cm x 6 cm and down to the muscle with a small amount of bleeding noted. Orders were given to the nurses to start wet to dry dressing and eventfully may need a wound VAC. Patient tolerated the procedure well. DICTATING PHYSICIAN: DUANE LUNA M.D. [id number] PHY#: [id number] ID: [id number] JOB#: [id number] ACCT: [id number] cc:DUANE LUNA M.D. >
[2017-01-29 04:57] LABS: ABSOLUTE EOSINOPHILS # (AUTO) 0.1 10^3/uL (0.0-0.6); ABSOLUTE LYMPHOCYTES (AUTO) 1.1 10^3/uL (0.5-4.7); ABSOLUTE MONOCYTES (AUTO) 1.3 10^3/uL (0.1-1.4); ABSOLUTE NEUT (AUTO) 6.4 10^3/uL (1.7-8.2); BASOPHILS % (AUTO) 0.5 % (0-2); EOSINOPHILS % (AUTO) 1.4 % (0-6); HEMATOCRIT 28.2 % (36.0-47.0); HEMOGLOBIN 9.6 g/dL (12.0-15.5); HGB HCT DIFFERENCE 0.6; LYMPHOCYTES % (AUTO) 12.3 % (13-45); MEAN CORPUSCULAR HEMOGLOBIN 28.2 pg (27.0-33.4); MEAN CORPUSCULAR HGB CONC 33.9 g/dL (32.0-36.0); MEAN CORPUSCULAR VOLUME 83 fl (80-97); MONOCYTES % (AUTO) 14.1 % (3-13); RED BLOOD COUNT 3.39 10^6/uL (3.72-5.28); RED CELL DISTRIBUTION WIDTH 16.4 % (11.5-14.0); SEGMENTED NEUTROPHILS % (AUTO) 71.7 % (42-78); WHITE BLOOD COUNT 8.9 10^3/uL (4.0-10.5)
[2017-01-29 05:19] LABS: ANION GAP 8 (5-19); BLOOD UREA NITROGEN 24 mg/dL (7-20); CALCIUM 8.8 mg/dL (8.4-10.2); CARBON DIOXIDE 30 mmol/L (22-30); CHLORIDE 101 mmol/L (98-107); GLUCOSE 315 mg/dL (75-110); POTASSIUM 3.5 mmol/L (3.6-5.0)
[2017-01-29] MEDS: BUDESONIDE NEB 0.5 MG/2 ML AMPUL NEB SCH ×2 (08:46→20:39)
[2017-01-29] MEDS: LEVALBUTEROL HCL NEB 1.25 MG/3 ML AMPUL NEB SCH ×2 (08:46→20:39)
[2017-01-29] MEDS: TIMOLOL MALEATE 0.5% OPH SOLN 5 ML OU SCH ×2 (10:00→22:47)
[2017-01-29] MEDS: FLUTICASONE NASAL SPRAY 50 MCG/SPRY 120 SPRAY/16 GM NAREB SCH ×2 (10:00→22:47)
[2017-01-29] MEDS: INSULIN LISPRO 100 UNIT/ML 3 ML VIAL SUBCUT PRN ×2 (10:08→22:48)
[2017-01-29] MEDS: CALCIUM ACETATE 667 MG CAPSULE PO SCH ×2 (10:08→16:08)
[2017-01-29] MEDS: ASPIRIN 81 MG TABLET, CHEWABLE PO SCH (15:00)
[2017-01-29] MEDS: SITAGLIPTIN PHOSPHATE 25 MG TABLET PO SCH (15:00)
[2017-01-29] MEDS: FOLIC ACID/VITAMIN B COMP W-C CAPSULE PO SCH (15:00)
[2017-01-29] MEDS: CITALOPRAM HYDROBROMIDE 20 MG TABLET PO SCH (15:00)
[2017-01-29] MEDS: EPOETIN ALFA INJ 20000 UNIT/1 ML VIAL (RENAL) IV PRN (15:34)
[2017-01-29] MEDS: HEPARIN SOD (PORCINE) 1,000 UNIT/ML 10 ML VIAL IV PRN (15:35)
--- NOTE | 2017-01-29 15:47 | PDOC TRANSFER SUMMARY ---
General - Admit/Disc Date/PCP Admission Date/Primary Care Provider: 01/01/17 17:34 ALONDRA PHILLIPS MD Discharge Date: 01/29/17 - Discharge Diagnosis (1) UTI due to extended-spectrum beta lactamase (ESBL) producing Escherichia coli Is this a current diagnosis for this admission?: Yes (2) Urinary tract infection Is this a current diagnosis for this admission?: Yes (3) Metabolic encephalopathy Is this a current diagnosis for this admission?: Yes (4) Severe persistent allergic asthma with acute exacerbation Is this a current diagnosis for this admission?: Yes (5) End-stage renal disease on hemodialysis Is this a current diagnosis for this admission?: Yes (6) Hypoglycemia Is this a current diagnosis for this admission?: Yes (7) Contusion of face Is this a current diagnosis for this admission?: Yes (8) Septic shock Is this a current diagnosis for this admission?: Yes (9) Sacral decubitus ulcer, stage III Is this a current diagnosis for this admission?: Yes (10) Dementia Is this a current diagnosis for this admission?: Yes (11) Respiratory arrest Is this a current diagnosis for this admission?: Yes (12) Hypoglycemia Is this a current diagnosis for this admission?: Yes (13) Acute metabolic encephalopathy Is this a current diagnosis for this admission?: Yes (14) Acute metabolic encephalopathy due to hypoglycemia Is this a current diagnosis for this admission?: Yes - Additional Information Resuscitation Status: Do Not Resuscitate Discharge Diet: As Tolerated Home Medications: Albuterol Sulfate [Ventolin Hfa] 2 puff IH Q4HP PRN 11/18/16 Aspirin [Aspirin 81 mg Chewable Tablet] 81 mg PO DAILY 11/18/16 Brimonidine Tartrate [Alphagan P] 1 drop OU Q12 11/18/16 Budesonide/Formoterol Fumarate [Symbicort HFA 160-4.5 mcg Inhaler 6 gm] 2 puff IH Q12 11/18/16 Calcium Acetate [Phoslo 667 mg Capsule] 667 mg PO MEALS 11/18/16 Carvedilol [Coreg 12.5 mg Tablet] 37.5 mg PO Q12 11/18/16 Cetirizine HCl [Zyrtec Oral Soln 5 mg/5 ml Udcup] 10 mg PO DAILY 11/18/16 Citalopram Hydrobromide [Celexa 20 mg Tablet] 20 mg PO DAILY 11/18/16 Docusate Sodium [Colace 100 mg Capsule] 100 mg PO DAILY 11/18/16 Epoetin Johnathan [Procrit Inj 20,000 Unit/1 ml Vial (Renal)] 20,000 unit IV TUTHSA@ 1000 11/18/16 Fluticasone Propionate [Flonase Nasal [place] 50 Mcg/[place] 16 gm] 1 spray NAREB Q12 11/18/16 Folic Acid/Vitamin B Comp W-C [Nephrocaps Multiple Vitamin Capsule] 1 cap PO DAILY 11/18/16 Insulin Detemir [Levemir Flextouch] 10 unit SQ QHS 11/18/16 Linagliptin [Tradjenta] 5 mg PO DAILY 11/18/16 Omeprazole 20 mg PO DAILY 11/18/16 Timolol Maleate 1 drop OU Q12 11/18/16 Acetaminophen [Tylenol 325 mg Tablet] 650 mg PO Q6HP PRN #0 tablet 01/29/17 Epoetin Johnathan [Procrit Inj 20,000 Unit/1 ml Vial (Renal)] 20,000 unit IV .DIALYSIS PRN #0 ml 01/29/17 Timolol Maleate [Timoptic 0.5% Oph Soln 5 ml] 1 drop OU Q12 #0 bottle 01/29/17 History of Present Illness Admission Date/PCP: 01/01/17 17:34 ALONDRA PHILLIPS MD History of Present Illness: Patient 86-year-old female with end-stage renal disease on maintenance hemodialysis, type 2 diabetes mellitus with complications, dementia. She was admitted on 01/01/2017 when she presented with confusion she fell and sustained injury to the face and the head on presentation there are multiple bruises on the face and ecchymosis around the eyeball. The history was that patient was trying to get out of bed at night, patient's daughter kept in the room and tried to secure the room with kitchen high chairs but patient was able to get around the chairs and in the process she fell and sustained a head face and neck injuries. She was seen and evaluated in the emergency room risk of the head and neck was done and there was no acute pathology found on CT scan. Patient's daughter was concerned that she is more confused than usual suggesting there could be intercurrent illness especially UTI the emergency room urinalysis was done and it was grossly abnormal and urine culture was already growing gram-negative rods to the impression was that she probably have a component of metabolic encephalopathy due to gram-negative UTI in addition to underlying dementia Hospital Course Hospital Course: Hospital course was prolonged patient had ESBL E. coli UTI, she developed hypoglycemia encephalopathy associated with respiratory arrest requiring tracheal intubation and care was transferred to intensive care unit that was subsequent septic shock requiring vasopressors with norepinephrine she was treated with ertapenem intravenously. She was seen by pulmonary because she was ventilated and managed in intensive care unit. The ICU care was prolonged, patient required antibiotic and vent support for prolonged period of time in intensive care unit. She has baseline dementia because of the multiple confounding factors and multiple comorbid conditions patient was made DNR status by family on this admission nutrition was also a challenge she was not eating she was seen by speech and ultimately family opted for alternative means of nutrition with a PEG tube. She also developed state that he decubital ulcer in the sacrum she was seen by the surgeon and she underwent excisional debridement of the ulcer in the sacrum and the intent is to have a wound VAC in place. She has end-stage renal disease on hemodialysis she was by nephrology and she had hemodialysis session in the hospital. Patient's cognition has declined over time and presently she does not engage in any meaningful conversation, overall prognosis is still poor. The plan is to transfer patient to assisted for rehabilitation and probably long-term care Physical Exam Vital Signs: Temp Pulse Resp BP Pulse Ox 98.7 F 78 16 119/60 92 01/29/17 07:28 01/29/17 08:46 01/29/17 08:46 01/29/17 07:28 01/29/17 07:28 Intake & Output 01/28/17 01/29/17 01/30/17 06:59 06:59 06:59 Intake Total 1464 0 0 Output Total 2203 125 0 Balance -739 -125 0 Weight 78.9 kg 78.8 kg General appearance: PRESENT: no acute distress Eye exam: PRESENT: PERRLA Respiratory exam: PRESENT: clear to auscultation kennedi Cardiovascular exam: PRESENT: +S1, +S2 GI/Abdominal exam: PRESENT: soft Neurological exam: PRESENT: alert Results Laboratory Results: 01/29/17 03:58 01/29/17 03:58 01/29/17 01/29/17 03:58 03:58 WBC 8.9 RBC 3.39 L Hgb 9.6 L Hct 28.2 L MCV 83 MCH 28.2 MCHC 33.9 RDW 16.4 H Plt Count 219 Seg Neutrophils % 71.7 Lymphocytes % 12.3 L Monocytes % 14.1 H Eosinophils % 1.4 Basophils % 0.5 Absolute Neutrophils 6.4 Absolute Lymphocytes 1.1 Absolute Monocytes 1.3 Absolute Eosinophils 0.1 Absolute Basophils 0.0 Sodium 139.0 Potassium 3.5 L Chloride 101 Carbon Dioxide 30 Anion Gap 8 BUN 24 H Creatinine 4.50 H Est GFR ( Amer) 11 L Est GFR (Non-Af Amer) 9 L Glucose 315 H Calcium 8.8 01/01/17 01/01/17 01/02/17 23:20 23:20 06:07 Creatine Kinase 23 L 22 L CK-MB (CK-2) 0.36 Troponin I < 0.012 NT-Pro-B Natriuret Pep 01/02/17 01/04/17 06:07 05:45 Creatine Kinase CK-MB (CK-2) 0.47 Troponin I < 0.012 NT-Pro-B Natriuret Pep [id number] H Impressions: Cervical Spine CT 01/01/17 08:43 IMPRESSION: Considerable motion artifact. No fracture identified. If clinical suspicion of fracture persists, repeat imaging when the patient is more stable is recommended. Head CT 01/01/17 08:43 IMPRESSION: No visualized intracranial hemorrhage or fracture. Frontal soft tissue swelling. Significant patient motion limits evaluation of the lower cerebrum, skullbase and posterior fossa. Repeat exam recommended if there is high clinical suspicion. Hip X-Ray 01/01/17 08:43 IMPRESSION: No acute finding. Chest X-Ray 01/13/17 06:00 IMPRESSION: Cardiomegaly and mild central vascular congestion. Low lung volumes with small bilateral pleural effusions and bibasilar airspace opacities, may represent atelectasis or pneumonia. Modified Barium Swallow 01/17/17 00:00 IMPRESSION: NO EVIDENCE OF PENETRATION OR ASPIRATIONPLEASE SEE SPEECH PATHOLOGIST REPORT FOR OTHER FINDINGS AND RECOMMENDATIONS. Fistulogram 01/28/17 00:00 IMPRESSION: Intraoperative imaging as described. HEALTH BENEFITS SPECIALIST, Brachiocephalic 01/28/17 00:00 IMPRESSION: Please see combined report for performance of procedure and radiologic supervision and interpretation.
[2017-01-29] MEDS: CARVEDILOL 12.5 MG TABLET PO SCH ×2 (15:59→22:47)
[2017-01-29] MEDS: LANSOPRAZOLE 15 MG TAB.RAP.DR PO SCH (16:07)
[2017-01-29] MEDS: LACTOBACILLUS ACIDOPHILUS 250 MG TAB PO SCH (16:08)
[2017-01-29] MEDS: ACETAMINOPHEN 325 MG TABLET PO PRN (16:08)
[2017-01-29] MEDS: FUROSEMIDE 40 MG TABLET PO SCH ×2 (16:26→19:33)
[2017-01-29] MEDS: METOPROLOL TARTRATE PF/INJ 5 MG/5 ML SDV IV SCH ×2 (16:26→22:47)
[2017-01-29] MEDS: DOCUSATE SODIUM 100 MG CAPSULE PO SCH (19:38)
[2017-01-29] MEDS: CETIRIZINE HCL ORAL SOLN 5 MG/5 ML UDCUP PO SCH (19:38)
--- NOTE | 2017-01-29 21:08 | PDOC PROGRESS REPORT ---
Subjective Progress Note for:: 01/29/17 Subjective:: I saw the patient on dialysis at around 2:45 PM today. She was actually more awake and was able to tell me her name. However she still confused. She had a fistulogram for AV fistula yesterday. However her blood flow is still limited using her fistula. Other than that patient tolerated dialysis without any problems. She did have some minimal hypotension so ultrafiltration was also limited. Physical Exam Vital Signs: Temp Pulse Resp BP Pulse Ox 98.7 F 81 16 119/60 96 01/29/17 07:28 01/29/17 20:39 01/29/17 20:39 01/29/17 07:28 01/29/17 20:39 Intake & Output 01/28/17 01/29/17 01/30/17 06:59 06:59 06:59 Intake Total 1464 0 0 Output Total 2203 125 600 Balance -739 -125 -600 Weight 78.9 kg 78.8 kg Vital signs during dialysis: Blood pressure 122/107, heart rate 96, blood flow rate 350 mL per minute, dialysate flow rate 600 mL per minute. Exam: General appearance: PRESENT: no acute distress, cooperative, well-developed, well-nourished Head exam: PRESENT: atraumatic, normocephalic Eye exam: PRESENT: conjunctiva pale, PERRLA. ABSENT: scleral icterus Neck exam: ABSENT: JVD Respiratory exam: PRESENT: Diminished breath sounds. ABSENT: crackles, rales, rhonchi, unlabored, wheezes Cardiovascular exam: PRESENT: Regular rate rhythm -+S1, +S2. ABSENT: diastolic murmur, systolic murmur GI/Abdominal exam: PRESENT: normal bowel sounds, soft. PEG tube in place ABSENT : guarding, mass, tenderness Extremities exam: ABSENT: No edema Neurological exam: PRESENT: alert, awake, oriented to person, but not to place and time. Skin exam: PRESENT: dry, warm, Cardiovascular exam: PRESENT: +S1, +S2 GI/Abdominal exam: PRESENT: normal bowel sounds, soft. ABSENT: distended, guarding, tenderness Results Laboratory Results: 01/29/17 03:58 01/29/17 03:58 01/29/17 01/29/17 03:58 03:58 WBC 8.9 RBC 3.39 L Hgb 9.6 L Hct 28.2 L MCV 83 MCH 28.2 MCHC 33.9 RDW 16.4 H Plt Count 219 Seg Neutrophils % 71.7 Lymphocytes % 12.3 L Monocytes % 14.1 H Eosinophils % 1.4 Basophils % 0.5 Absolute Neutrophils 6.4 Absolute Lymphocytes 1.1 Absolute Monocytes 1.3 Absolute Eosinophils 0.1 Absolute Basophils 0.0 Sodium 139.0 Potassium 3.5 L Chloride 101 Carbon Dioxide 30 Anion Gap 8 BUN 24 H Creatinine 4.50 H Est GFR ( Amer) 11 L Est GFR (Non-Af Amer) 9 L Glucose 315 H Calcium 8.8 01/01/17 01/01/17 01/02/17 23:20 23:20 06:07 Creatine Kinase 23 L 22 L CK-MB (CK-2) 0.36 Troponin I < 0.012 NT-Pro-B Natriuret Pep 01/02/17 01/04/17 06:07 05:45 Creatine Kinase CK-MB (CK-2) 0.47 Troponin I < 0.012 NT-Pro-B Natriuret Pep 37723 H Impressions: Cervical Spine CT 01/01/17 08:43 IMPRESSION: Considerable motion artifact. No fracture identified. If clinical suspicion of fracture persists, repeat imaging when the patient is more stable is recommended. Head CT 01/01/17 08:43 IMPRESSION: No visualized intracranial hemorrhage or fracture. Frontal soft tissue swelling. Significant patient motion limits evaluation of the lower cerebrum, skullbase and posterior fossa. Repeat exam recommended if there is high clinical suspicion. Hip X-Ray 01/01/17 08:43 IMPRESSION: No acute finding. Chest X-Ray 01/13/17 06:00 IMPRESSION: Cardiomegaly and mild central vascular congestion. Low lung volumes with small bilateral pleural effusions and bibasilar airspace opacities, may represent atelectasis or pneumonia. Modified Barium Swallow 01/17/17 00:00 IMPRESSION: NO EVIDENCE OF PENETRATION OR ASPIRATIONPLEASE SEE SPEECH PATHOLOGIST REPORT FOR OTHER FINDINGS AND RECOMMENDATIONS. Fistulogram 01/28/17 00:00 IMPRESSION: Intraoperative imaging as described. METER INSPECTOR, Brachiocephalic 01/28/17 00:00 IMPRESSION: Please see combined report for performance of procedure and radiologic supervision and interpretation. Assessment & Plan - Diagnosis (1) End-stage renal disease on hemodialysis Is this a current diagnosis for this admission?: YesPlan: We did dialysis today for 3 hours, using the patient's AV fistula, with 3 potassium bath, blood flow rate of 300 mL per minute, dialysate flow rate of 600 mL per minute, ultrafiltration 1 L L as tolerated, no heparin and no Procrit during dialysis intravenously. Patient's ultrafiltration was limited by hypotension. Nevertheless patient tolerated procedure well. (2) Dialysis AV fistula malfunction Is this a current diagnosis for this admission?: YesPlan: Status post fistulogram by Dr. Jeffries. (3) Hypokalemia Is this a current diagnosis for this admission?: YesPlan: Improved. (4) UTI (urinary tract infection) Qualifiers: Urinary tract infection type: site unspecified Hematuria presence: with hematuria Qualified Code(s): N39.0 - Urinary tract infection, site not specified Is this a current diagnosis for this admission?: YesPlan: Due to ESBL Escherichia coli. This was treated with antibiotics. (5) Anemia in chronic kidney disease Is this a current diagnosis for this admission?: YesPlan: Blood transfusion with 2 units packed RBC was given during dialysis 2 days ago. (6) Metabolic encephalopathy Is this a current diagnosis for this admission?: YesPlan: Patient is still confused but I think this is her baseline mentation due to advanced dementia. (7) Adult failure to thrive Is this a current diagnosis for this admission?: YesPlan: Currently being fed through the PEG tube. Patient is tolerating it well. - Time Time with patient: 15-25 minutes
[2017-01-29] MEDS: MIRTAZAPINE 15 MG TABLET PO SCH (22:47)
[2017-01-30] MEDS: INSULIN LISPRO 100 UNIT/ML 3 ML VIAL SUBCUT PRN ×2 (06:56→12:07)
[2017-01-30] MEDS: LEVALBUTEROL HCL NEB 1.25 MG/3 ML AMPUL NEB SCH (07:37)
[2017-01-30] MEDS: BUDESONIDE NEB 0.5 MG/2 ML AMPUL NEB SCH (07:37)
[2017-01-30] MEDS: CALCIUM ACETATE 667 MG CAPSULE PO SCH ×3 (09:15→18:00)
[2017-01-30] MEDS: LACTOBACILLUS ACIDOPHILUS 250 MG TAB PO SCH ×2 (09:16→17:59)
[2017-01-30] MEDS: CARVEDILOL 12.5 MG TABLET PO SCH (09:17)
[2017-01-30] MEDS: LANSOPRAZOLE 15 MG TAB.RAP.DR PO SCH (09:20)
[2017-01-30] MEDS: FLUTICASONE NASAL SPRAY 50 MCG/SPRY 120 SPRAY/16 GM NAREB SCH (09:20)
[2017-01-30] MEDS: FUROSEMIDE 40 MG TABLET PO SCH ×2 (09:21→17:59)
[2017-01-30] MEDS: METOPROLOL TARTRATE PF/INJ 5 MG/5 ML SDV IV SCH (09:22)
[2017-01-30] MEDS: TIMOLOL MALEATE 0.5% OPH SOLN 5 ML OU SCH (09:22)
[2017-01-30] MEDS ORDERED: SITAGLIPTIN PHOSPHATE 25 MG TABLET PO SCH (10:00)
[2017-01-30 12:02] VITALS: BP 118/44
[2017-01-30] MEDS ORDERED: HEPARIN SOD (PORCINE) 5,000 UNIT/ML 1 ML SYRINGE SUBCUT ONE (15:00)
[2017-01-30] MEDS: CETIRIZINE HCL ORAL SOLN 5 MG/5 ML UDCUP PO SCH (17:58)
[2017-01-30] MEDS: CITALOPRAM HYDROBROMIDE 20 MG TABLET PO SCH (17:59)
[2017-01-30] MEDS: FOLIC ACID/VITAMIN B COMP W-C CAPSULE PO SCH (18:00)
[2017-01-30] MEDS: ASPIRIN 81 MG TABLET, CHEWABLE PO SCH (18:00)
[2017-01-30] MEDS: DOCUSATE SODIUM 100 MG CAPSULE PO SCH (18:01)
== END 2017-01-30 18:46 | DRG 853 ==
LOC: ER 07:52 → EH 14:57 → UNDOADMIN 14:57 → EH 17:34 → 4N 22:10 → ICU 01-03 00:16 → 5 01-17 14:07
PROVIDERS: ADMIT Internal Medicine; ATTEND Internal Medicine
PROC: 05HQ33Z Insertion of Infusion Device into Left External Jugular Vein, Percutaneous Approach (ICD-10-PCS; 2017-01-02)
PROC: B544ZZA Ultrasonography of Left Jugular Veins, Guidance (ICD-10-PCS; 2017-01-02)
PROC: 5A1D60Z (ICD-10-PCS; 2017-01-03)
PROC: 0BH17EZ Insertion of Endotracheal Airway into Trachea, Via Natural or Artificial Opening (ICD-10-PCS; 2017-01-03)
PROC: 5A1955Z Respiratory Ventilation, Greater than 96 Consecutive Hours (ICD-10-PCS; 2017-01-03)
PROC: 02HV33Z Insertion of Infusion Device into Superior Vena Cava, Percutaneous Approach (ICD-10-PCS; 2017-01-06)
PROC: 0DH63UZ Insertion of Feeding Device into Stomach, Percutaneous Approach (ICD-10-PCS; 2017-01-23)
PROC: 30233N1 Transfusion of Nonautologous Red Blood Cells into Peripheral Vein, Percutaneous Approach (ICD-10-PCS; 2017-01-27)
PROC: 03723ZZ Dilation of Innominate Artery, Percutaneous Approach (ICD-10-PCS; principal; 2017-01-28)
PROC: B51WYZZ Fluoroscopy of Dialysis Shunt/Fistula using Other Contrast (ICD-10-PCS; 2017-01-28)
PROC: 0KBP0ZZ Excision of Left Hip Muscle, Open Approach (ICD-10-PCS; 2017-01-28)
PROC: 0KBN0ZZ Excision of Right Hip Muscle, Open Approach (ICD-10-PCS; 2017-01-28)
DX: A41.9 Sepsis, unspecified organism (principal); R65.21 Severe sepsis with septic shock; N18.6 End stage renal disease; Z66 Do not resuscitate; G93.41 Metabolic encephalopathy; I46.9 Cardiac arrest, cause unspecified; T82.858A Stenosis of other vascular prosthetic devices, implants and grafts, initial encounter; L89.153 Pressure ulcer of sacral region, stage 3; N39.0 Urinary tract infection, site not specified; I13.2 Hypertensive heart and chronic kidney disease with heart failure and with stage 5 chronic kidney disease, or end stage renal disease; I50.32 Chronic diastolic (congestive) heart failure; J45.51 Severe persistent asthma with (acute) exacerbation; J90 Pleural effusion, not elsewhere classified; F03.90 Unspecified dementia, unspecified severity, without behavioral disturbance, psychotic disturbance, mood disturbance, and anxiety; E11.22 Type 2 diabetes mellitus with diabetic chronic kidney disease; I25.10 Atherosclerotic heart disease of native coronary artery without angina pectoris; E78.5 Hyperlipidemia, unspecified; K21.9 Gastro-esophageal reflux disease without esophagitis; E11.649 Type 2 diabetes mellitus with hypoglycemia without coma; Z16.12 Extended spectrum beta lactamase (ESBL) resistance; B96.29 Other Escherichia coli [E. coli] as the cause of diseases classified elsewhere; B95.2 Enterococcus as the cause of diseases classified elsewhere; B96.89 Other specified bacterial agents as the cause of diseases classified elsewhere; B96.6 Bacteroides fragilis [B. fragilis] as the cause of diseases classified elsewhere; R19.7 Diarrhea, unspecified; D63.1 Anemia in chronic kidney disease; E87.6 Hypokalemia; E83.39 Other disorders of phosphorus metabolism; R62.7 Adult failure to thrive; S00.83XA Contusion of other part of head, initial encounter; S00.03XA Contusion of scalp, initial encounter; S00.12XA Contusion of left eyelid and periocular area, initial encounter; S00.11XA Contusion of right eyelid and periocular area, initial encounter; W06.XXXA Fall from bed, initial encounter; Z91.81 History of falling; Y93.84 Activity, sleeping; Y92.013 Bedroom of single-family (private) house as the place of occurrence of the external cause; Z79.4 Long term (current) use of insulin; Z79.82 Long term (current) use of aspirin; Z79.51 Long term (current) use of inhaled steroids; Z79.899 Other long term (current) drug therapy; Z95.5 Presence of coronary angioplasty implant and graft; Z88.1 Allergy status to other antibiotic agents; Z88.2 Allergy status to sulfonamides; Z99.2 Dependence on renal dialysis
CPT/HCPCS: 36415; 36430; 36600; 36902; 36907; 43246; 51701; 70450; 71010; 72125; 73522; 74230; 80048; 80053; 80061; 80076; 80307; 81001; 82140; 82150; 82550; 82553; 82803; 82962; 83036; 83605; 83690; 83735; 83880; 84100; 84439; 84443; 84478; 84484; 85025; 85027; 85610; 85730; 86317; 86704; 86850; 86900; 86901; 86920; 87040; 87070; 87075; 87077; 87086; 87088; 87186; 87205; 87340; 87493; 87522; 92950; 93005; 93010; 94002; 94003; 94660; 94799; 96365; 99285; C1725; C1751; C1752; C1769; G8996-GN; G8997-GN; G8998-GN; J0171; J0696; J0743; J1100; J1200; J1610; J1644; J1815; J2250; J2310; J2405; J2704; J3010; J3480; J3490; J7050; J7060; J7620; P9016; Q4081; Q9967

== ENCOUNTER 2017-02-06 11:09 | Emergency (ER) | payer MEDICARE, MEDICAID ==
[2017-02-06 13:36] LABS: APPEARANCE,URINE TURBID; BILIRUBIN,URINE NEGATIVE (NEGATIVE); GLUCOSE, URINE NEGATIVE (NEGATIVE); KETONES,URINE NEGATIVE (NEGATIVE); LEUKOCYTE ESTERASE,URINE MODERATE (NEGATIVE); NITRITE,URINE NEGATIVE (NEGATIVE); PROTEIN,URINE >=500 mg/dL (NEGATIVE); UROBILINOGEN,URINE NEGATIVE mg/dL (<2.0)
[2017-02-06] MEDS ORDERED: ERTAPENEM SODIUM INJ 1 GM VIAL IV ONE (13:39)
[2017-02-06 13:48] LABS: ABSOLUTE BASOPHILS # (AUTO) 0.1 10^3/uL (0.0-0.2); ABSOLUTE LYMPHOCYTES (AUTO) 1.2 10^3/uL (0.5-4.7); ABSOLUTE MONOCYTES (AUTO) 2.2 10^3/uL (0.1-1.4); ABSOLUTE NEUT (AUTO) 7.7 10^3/uL (1.7-8.2); BASOPHILS % (AUTO) 0.7 % (0-2); EOSINOPHILS % (AUTO) 0.3 % (0-6); HEMATOCRIT 23.2 % (36.0-47.0); HGB HCT DIFFERENCE -0.1; LYMPHOCYTES % (AUTO) 10.7 % (13-45); MEAN CORPUSCULAR HEMOGLOBIN 27.5 pg (27.0-33.4); MEAN CORPUSCULAR HGB CONC 33.1 g/dL (32.0-36.0); MEAN CORPUSCULAR VOLUME 83 fl (80-97); MONOCYTES % (AUTO) 19.8 % (3-13); RED CELL DISTRIBUTION WIDTH 18.4 % (11.5-14.0); SEGMENTED NEUTROPHILS % (AUTO) 68.5 % (42-78); WHITE BLOOD COUNT 11.2 10^3/uL (4.0-10.5)
[2017-02-06 13:51] LABS: HEMOGLOBIN 7.7 g/dL (12.0-15.5)
[2017-02-06 14:02] LABS: ALANINE AMINOTRANSFERASE 26 U/L (9-52); ALKALINE PHOSPHATASE 210 U/L (38-126); ANION GAP 9 (5-19); ASPARTATE AMINO TRANSFERASE 41 U/L (14-36); BILIRUBIN,DIRECT 0.5 mg/dL (0.0-0.4); BILIRUBIN,TOTAL 0.6 mg/dL (0.2-1.3); BLOOD UREA NITROGEN 56 mg/dL (7-20); CALCIUM 7.9 mg/dL (8.4-10.2); CARBON DIOXIDE 27 mmol/L (22-30); CHLORIDE 92 mmol/L (98-107); CREATININE RESULT 4.41 mg/dL (0.52-1.25); GLUCOSE 202 mg/dL (75-110); POTASSIUM 4.9 mmol/L (3.6-5.0); SODIUM 127.5 mmol/L (137-145)
--- NOTE | 2017-02-06 14:21 | EKG REPORT ---
SEVERITY:- ABNORMAL ECG - SINUS ARRHYTHMIA, RATE 68-98 RIGHT BUNDLE BRANCH BLOCK : Confirmed by: Laurence Chin 06-Feb-2017 14:21:21
[2017-02-06] MEDS ORDERED: FUROSEMIDE INJ/PF 40 MG/4 ML SDV IV ONE (14:25)
--- NOTE | 2017-02-06 15:32 | ER Document Report ---
ED General - General Chief Complaint: Respiratory Distress Stated Complaint: DIFFICULTY BREATHING TRAVEL OUTSIDE OF THE [place] IN LAST 30 DAYS: No - HPI Patient complains to provider of: difficulty in breathing Notes: Patient was on the way to her dialysis today when the transporting inthe patient had a pulse ox in the 70s therefore came to the ER further evaluation. Patient recently discharged from the hospital. Patient has history of dementia end-stage renal disease on dialysis. Patient also has a history of a decubitus ulcer with a wound VAC placed. Patient afebrile upon arrival. Patient is mildly confused however is alert. Patient was placed on nasal cannula approximately 2 L no signs of hypoxia since that time. Most of the other information is gathered from paperwork provided by EMS unit. Paperwork indicates patient is a full code. - Related Data Allergies/Adverse Reactions: ciprofloxacin [Ciprofloxacin] Allergy (Severe, Verified 08/23/16 20:22) rash sulfamethoxazole [Sulfamethoxazole] Allergy (Unknown, Verified 08/23/16 20:22) rash Past Medical History - Social History Smoking Status: Never Smoker Chew tobacco use (# tins/day): No Frequency of alcohol use: None Family History: Reviewed & Not Pertinent, Other - Unable to obtain due to dementia - Past Medical History Cardiac Medical History: Reports: Hx Congestive Heart Failure - Chronic diastolic dysfunction, pulmonary hypertension, Hx Coronary Artery Disease, Hx Hypercholesterolemia, Hx Hypertension - on meds Denies: Hx Atrial Fibrillation, Hx Heart Attack, Hx Pulmonary Embolism Pulmonary Medical History: Reports: Hx Asthma, Hx Bronchitis - hx of, Hx COPD, Hx Pneumonia - hx of, Hx Sleep Apnea Denies: Hx Respiratory Failure, Hx Tuberculosis Neurological Medical History: Denies: Hx Cerebrovascular Accident, Hx Seizures Endocrine Medical History: Reports: Hx Diabetes Mellitus Type 2. Denies: Hx Diabetes Mellitus Type 1 Renal/ Medical History: Reports: Hx End Stage Renal Disease - End-stage renal disease on maintenance hemodialysis Malignancy Medical History: Denies: Hx Lung Cancer GI Medical History: Denies: Hx Gastroesophageal Reflux Disease, Hx Hiatal Hernia Musculoskeltal Medical History: Reports Hx 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, Denies Hx Fibromyalgia, Denies Hx Muscular Dystrophy Psychiatric Medical History: Reports: Hx Dementia Denies: Hx Depression Traumatic Medical History: Denies: Hx Fractures Infectious Medical History: Reports: Hx MRSA Past Surgical History: Reports: Hx Cardiac Catheterization - cardiac stent 2010 , Hx Coronary Stent, Hx Orthopedic Surgery - Back surgery, Hx Vascular Surgery - Fistula to the right arm for dialysis. Denies: Hx Hysterectomy, Hx Pacemaker - Immunizations Immunizations up to date: Yes Hx Diphtheria, Pertussis, Tetanus Vaccination: Yes Hx Pneumococcal Vaccination: 10/13/09 Review of Systems - Review of Systems -: Yes ROS unobtainable due to patient's medical condition - Dementia Physical Exam - Vital signs Interpretation: Normal - General General appearance: Appears well, Alert - HEENT Head: Normocephalic, Atraumatic Eyes: Normal Pupils: PERRL - Respiratory Respiratory status: No respiratory distress Chest status: Nontender Breath sounds: Normal Chest palpation: Normal - Cardiovascular Rhythm: Regular Heart sounds: Normal auscultation Murmur: No - Abdominal Inspection: Normal Distension: No distension Bowel sounds: Normal Tenderness: Nontender Organomegaly: No organomegaly Notes: Feeding tube in place - Rectal Notes: Patient with diffuse diarrhea and a wound VAC placed with stool behind a wound VAC therefore the wound that was removed showing a large defect in the sacral region with different stages of granulation tissue no signs of infection - Back Back: Normal, Nontender - Extremities General upper extremity: Nontender, Normal color, Normal ROM, Normal temperature. No: Normal inspection - Right upper extremity with a AV fistula with palpable thrill. General lower extremity: Normal inspection, Nontender, Normal color, Normal ROM , Normal temperature, Normal weight bearing. No: Yael's sign - Neurological Neuro grossly intact: Yes Cognition: Normal Orientation: AAOx4 Gray Coma Scale Eye Opening: Spontaneous Gray Coma Scale Verbal: Oriented Gray Coma Scale Motor: Obeys Commands Leila Coma Scale Total: 15 Speech: Normal Motor strength normal: LUE, RUE, LLE, RLE Sensory: Normal - Psychological Associated symptoms: Normal affect, Normal mood - Skin Skin Temperature: Warm Skin Moisture: Dry Skin Color: Normal Course - Re-evaluation Re-evalutation: 02/06/17 15:29 Urinalysis does show more likely a chronic infection due to indwelling Garcia catheter. Laboratory also shows anemia. Patient remained stable with her oxygen here chest x-ray showed mild basilar congestion. Initially talked to patient's stone hand Dr. Alonzo and patient's PCP Dr. Phillips. Verification was made the patient is a DO NOT RESUSCITATE. States at this time patient can have a transfusion and dialysis performed either Friday or Friday however both agreed of the urinary tract infection more likely is colonization and chronic. Patient does not show any signs of sepsis or urosepsis at this time. Urine will be cultured and sent however antibiotics will not be initiated due to more likely colonization. Myself and and Dr. Phillips. The patient more likely have dialysis performed as outpatient no need to stay into the hospital this time the need for hospitalization. Patient will be given a dose of Lasix prior to discharge - Laboratory Result Diagrams: 02/06/17 13:10 02/06/17 13:10 Laboratory results interpreted by me: 02/06/17 02/06/17 02/06/17 11:58 13:10 13:10 WBC 11.2 H RBC 2.80 L Hgb 7.7 L Hct 23.2 L RDW 18.4 H Lymphocytes % 10.7 L Monocytes % 19.8 H Absolute Monocytes 2.2 H Sodium 127.5 L Chloride 92 L BUN 56 H Creatinine 4.41 H Est GFR ( Amer) 11 L Est GFR (Non-Af Amer) 9 L Glucose 202 H Calcium 7.9 L Direct Bilirubin 0.5 H AST 41 H Alkaline Phosphatase 210 H Total Protein 6.0 L Albumin 2.0 L Urine Protein >=500 H Urine Blood LARGE H Ur Leukocyte Esterase MODERATE H Discharge - Discharge Clinical Impression: mild vascular congestion chest x-ray, End-stage renal disease on hemodialysis, Chronic kidney disease (CKD), stage V, Anemia in chronic kidney disease Dyspnea Qualifiers: Dyspnea type: unspecified Qualified Code(s): R06.00 - Dyspnea, unspecified Dementia Qualifiers: Dementia type: unspecified type Dementia behavioral disturbance: without behavioral disturbance Qualified Code(s): F03.90 - Unspecified dementia without behavioral disturbance Diarrhea Qualifiers: Diarrhea type: unspecified type Qualified Code(s): R19.7 - Diarrhea, unspecified Decubitus ulcer Qualifiers: Pressure ulcer location: unspecified location Pressure ulcer stage: unstageable Qualified Code(s): L89.95 - Pressure ulcer of unspecified site, unstageable Condition: Fair Disposition: HOME-ASSISTED LIVING Additional Instructions: Patient's workup shows mild vascular congestion. In discussion with the patient 's stone hand and PCP will get the patient a dose of Lasix. Patient may need 2 L of oxygen nasal cannula however patient can follow-up with outpatient dialysis to be performed either Friday or Friday. Please confirm with nephrology team dialysis center that the patient will be on the schedule. Otherwise no acute laboratory abnormalities Patient's indwelling Garcia catheter urinalysis will be cultured however patient is probably colonized due to the indwelling Garcia catheter. No antibiotics at this time. Referrals: ALONDRA PHILLIPS MD [Primary Care Provider] - Follow up in 3-5 days
[2017-02-06 16:22] VITALS: BP 117/59
== END 2017-02-06 16:30 | disposition home health service (06) ==
LOC: ER 11:09
DX: N18.6 End stage renal disease (principal); Z99.2 Dependence on renal dialysis; D63.1 Anemia in chronic kidney disease; R06.00 Dyspnea, unspecified; F03.90 Unspecified dementia, unspecified severity, without behavioral disturbance, psychotic disturbance, mood disturbance, and anxiety; R19.7 Diarrhea, unspecified; L89.95 Pressure ulcer of unspecified site, unstageable; I87.8 Other specified disorders of veins; R06.02 Shortness of breath
CPT/HCPCS: 93005; 99285; 96374; 36415; 87040; 87086; 85025; 85610; 87088; 80053; 81001; 87186; 87493 ×2; 83605; 71010; 93010; J1940

== ENCOUNTER 2017-02-15 10:22 | Emergency (ER) | payer MEDICARE, MEDICAID ==
[2017-02-15] MEDS ORDERED: DEXTROSE 50%-WATER 25 GM/50 ML DISP.SYRIN IV ONE ×2 (10:36)
[2017-02-15] MEDS ORDERED: NORMAL SALINE 500 ML IV ONE (10:37)
[2017-02-15 10:57] LABS: ABSOLUTE EOSINOPHILS # (AUTO) 0.1 10^3/uL (0.0-0.6); ABSOLUTE LYMPHOCYTES (AUTO) 0.7 10^3/uL (0.5-4.7); ABSOLUTE MONOCYTES (AUTO) 1.3 10^3/uL (0.1-1.4); ABSOLUTE NEUT (AUTO) 9.8 10^3/uL (1.7-8.2); BASOPHILS % (AUTO) 0.3 % (0-2); EOSINOPHILS % (AUTO) 1.1 % (0-6); HEMATOCRIT 23.2 % (36.0-47.0); HGB HCT DIFFERENCE -0.4; LYMPHOCYTES % (AUTO) 5.7 % (13-45); MEAN CORPUSCULAR HEMOGLOBIN 27.2 pg (27.0-33.4); MEAN CORPUSCULAR HGB CONC 32.8 g/dL (32.0-36.0); MEAN CORPUSCULAR VOLUME 83 fl (80-97); MONOCYTES % (AUTO) 10.8 % (3-13); RED BLOOD COUNT 2.79 10^6/uL (3.72-5.28); RED CELL DISTRIBUTION WIDTH 18.2 % (11.5-14.0); SEGMENTED NEUTROPHILS % (AUTO) 82.1 % (42-78); WHITE BLOOD COUNT 11.9 10^3/uL (4.0-10.5)
[2017-02-15 11:04] LABS: HEMOGLOBIN 7.6 g/dL (12.0-15.5)
[2017-02-15 11:12] LABS: ANION GAP 5 (5-19); BLOOD UREA NITROGEN 55 mg/dL (7-20); CALCIUM 8.2 mg/dL (8.4-10.2); CARBON DIOXIDE 28 mmol/L (22-30); CHLORIDE 92 mmol/L (98-107); CREATININE RESULT 3.63 mg/dL (0.52-1.25); LIPASE 63.9 U/L (23-300); POTASSIUM 5.3 mmol/L (3.6-5.0); SODIUM 125.2 mmol/L (137-145)
[2017-02-15 11:23] LABS: APPEARANCE,URINE TURBID; BILIRUBIN,URINE NEGATIVE (NEGATIVE); GLUCOSE, URINE NEGATIVE (NEGATIVE); KETONES,URINE NEGATIVE (NEGATIVE); LEUKOCYTE ESTERASE,URINE LARGE (NEGATIVE); NITRITE,URINE NEGATIVE (NEGATIVE); PROTEIN,URINE 100 mg/dL (NEGATIVE); UROBILINOGEN,URINE NEGATIVE mg/dL (<2.0)
[2017-02-15 11:24] LABS: GLUCOSE 38 mg/dL (75-110)
[2017-02-15 11:29] LABS: VENOUS BLOOD BASE EXCESS 5.6 mmol/L; VENOUS BLOOD HCO3 33.8 mmol/L (20-32); VENOUS BLOOD PH 7.29 (7.30-7.42)
[2017-02-15 11:31] LABS: VENOUS BLOOD PCO2 72.3 mmHg (35-63)
[2017-02-15] MEDS ORDERED: ERTAPENEM SODIUM INJ 1 GM VIAL IV ONE (12:46)
[2017-02-15] MEDS ORDERED: ATROPINE SULFATE 1% OPH SOLN 5 ML BOTTLE OU ONE (12:58)
--- NOTE | 2017-02-15 13:37 | ER Document Report ---
ED General - General Chief Complaint: Altered Mental Status Stated Complaint: ALTERED MENTAL STATUS TRAVEL OUTSIDE OF THE [place] IN LAST 30 DAYS: No - HPI Patient complains to provider of: altered mental status Notes: Patient is presenting today for altered mental status. Patient has a history of end-stage renal disease on dialysis ESBL UTIs causing encephalopathy. Diabetes. Patient also has large cubitus ulcers under her current wound care treatment. Patient per skilled nursing was altered this morning found to have a low blood sugar attempted to give oral are juice despite the patient having a feeding tube patient began to choke concern about possible aspiration discussed with covering PCP and was referred to the ER for further evaluation. Upon arrival patient's Accu-Chek did read approximately 50. Vital signs remained stable I was able to gain IV access very quickly using ultrasound in the left arm I was time blood work was drawn and then the patient was given an amp of D50 with increase in her mental state. Patient seen to be more alert however patient does have severe dementia baseline is unsure of - Related Data Allergies/Adverse Reactions: ciprofloxacin [Ciprofloxacin] Allergy (Severe, Verified 08/23/16 20:22) rash sulfamethoxazole [Sulfamethoxazole] Allergy (Unknown, Verified 08/23/16 20:22) rash Past Medical History - Social History Smoking Status: Never Smoker Chew tobacco use (# tins/day): No Frequency of alcohol use: None Drug Abuse: None Family History: Reviewed & Not Pertinent, Other - Unable to obtain due to dementia - Past Medical History Cardiac Medical History: Reports: Hx Congestive Heart Failure - Chronic diastolic dysfunction, pulmonary hypertension, Hx Coronary Artery Disease, Hx Hypercholesterolemia, Hx Hypertension - on meds Denies: Hx Atrial Fibrillation, Hx Heart Attack, Hx Pulmonary Embolism Pulmonary Medical History: Reports: Hx Asthma, Hx Bronchitis - hx of, Hx COPD, Hx Pneumonia - hx of, Hx Sleep Apnea Denies: Hx Respiratory Failure, Hx Tuberculosis Neurological Medical History: Denies: Hx Cerebrovascular Accident, Hx Seizures Endocrine Medical History: Reports: Hx Diabetes Mellitus Type 2. Denies: Hx Diabetes Mellitus Type 1 Renal/ Medical History: Reports: Hx End Stage Renal Disease - End-stage renal disease on maintenance hemodialysis Malignancy Medical History: Denies: Hx Lung Cancer GI Medical History: Denies: Hx Gastroesophageal Reflux Disease, Hx Hiatal Hernia Musculoskeltal Medical History: Reports Hx 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, Denies Hx Fibromyalgia, Denies Hx Muscular Dystrophy Psychiatric Medical History: Reports: Hx Dementia Denies: Hx Depression Traumatic Medical History: Denies: Hx Fractures Infectious Medical History: Reports: Hx MRSA Past Surgical History: Reports: Hx Cardiac Catheterization - cardiac stent 2010 , Hx Coronary Stent, Hx Orthopedic Surgery - Back surgery, Hx Vascular Surgery - Fistula to the right arm for dialysis. Denies: Hx Hysterectomy, Hx Pacemaker - Immunizations Immunizations up to date: Yes Hx Diphtheria, Pertussis, Tetanus Vaccination: Yes Hx Pneumococcal Vaccination: 10/13/09 Review of Systems - Review of Systems -: Yes ROS unobtainable due to patient's medical condition - Dementia -: Yes All other systems reviewed and negative Physical Exam - Vital signs Vitals: Resp Pulse Ox 18 100 02/15/17 10:27 02/15/17 10:27 Interpretation: Normal - General General appearance: Alert - HEENT Head: Normocephalic, Atraumatic Eyes: Normal Pupils: PERRL - Respiratory Respiratory status: No respiratory distress Chest status: Nontender Breath sounds: Rhonchi - Diffuse rhonchi mostly sounds tracheal Chest palpation: Normal - Cardiovascular Rhythm: Regular Heart sounds: Normal auscultation Murmur: No - Abdominal Inspection: Normal Distension: No distension Bowel sounds: Normal Tenderness: Nontender Organomegaly: No organomegaly Notes: Feeding tube no signs of infection - Back Notes: Large decubitus ulcer - Extremities General upper extremity: Nontender, Normal color, Other - 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 Patient has AV fistula in right upper extremity with a very weak palpable thrill General lower extremity: Nontender, Normal color - Neurological Neuro grossly intact: Yes Sensory: Normal - Skin Skin Temperature: Warm Skin Moisture: Dry Skin Color: Normal Course - Re-evaluation Re-evalutation: 02/15/17 14:48 Patient's blood sugar increased with administration of dextrose IV. Patient's family does confirm that the patient wishes to be a DO NOT RESUSCITATE Patient case was discussed with covering physician Dr. solis who agrees with assessment and plan patient does have recurring UTIs her is ESBL states this time more likely would he be treated however more likely on her mental state will be due to the patient's hypoglycemia. Did recommend that we give the patient a dose of Invanz however patient should be able to be transported back to skilled nursing for continued management. Patient's ABG did show some signs of hypercapnia however this VBG was obtained with a tourniquet on the arm patient has showed no signs of hypo-respirations or hypoxia while here. Do believe this is more or less lab error. Patient's condition peripheral does show chronic hypernatremia and renal function disease. Patient was given a bolus of fluids. Chest x-ray showed continued vascular congestion no new occur changes from previous Long discussion with family at bedside. Due to oral secretions patient was given oral atropine. Explained to the patient that the prognosis is very fair at best as of the patient has severe chronic disease. Discussed that the family may want to discuss with PCP about comfort measures. - Vital Signs Vital signs: Temp Pulse Resp BP Pulse Ox 16 127/59 H 100 02/15/17 11:01 02/15/17 11:01 02/15/17 11:01 - Laboratory Result Diagrams: 02/15/17 10:39 02/15/17 10:39 Laboratory results interpreted by me: 02/15/17 02/15/17 02/15/17 10:39 10:39 10:45 WBC 11.9 H RBC 2.79 L Hgb 7.6 L Hct 23.2 L RDW 18.2 H Seg Neutrophils % 82.1 H Lymphocytes % 5.7 L Absolute Neutrophils 9.8 H VBG pH VBG pCO2 VBG HCO3 Sodium 125.2 L Potassium 5.3 H Chloride 92 L BUN 55 H Creatinine 3.63 H Est GFR ( Amer) 14 L Est GFR (Non-Af Amer) 12 L Glucose 38 L* POC Glucose Calcium 8.2 L Urine Protein 100 H Urine Blood LARGE H Ur Leukocyte Esterase LARGE H Urine Ascorbic Acid 20 H 02/15/17 02/15/17 02/15/17 11:00 11:19 12:13 WBC RBC Hgb Hct RDW Seg Neutrophils % Lymphocytes % Absolute Neutrophils VBG pH 7.29 L VBG pCO2 72.3 H* VBG HCO3 33.8 H Sodium Potassium Chloride BUN Creatinine Est GFR ( Amer) Est GFR (Non-Af Amer) Glucose POC Glucose 168 H 131 H Calcium Urine Protein Urine Blood Ur Leukocyte Esterase Urine Ascorbic Acid 02/15/17 14:14 WBC RBC Hgb Hct RDW Seg Neutrophils % Lymphocytes % Absolute Neutrophils VBG pH VBG pCO2 VBG HCO3 Sodium Potassium Chloride BUN Creatinine Est GFR ( Amer) Est GFR (Non-Af Amer) Glucose POC Glucose 114 H Calcium Urine Protein Urine Blood Ur Leukocyte Esterase Urine Ascorbic Acid Discharge - Discharge Clinical Impression: Chronic kidney disease (CKD), stage V, Hypoglycemia, UTI due to extended- spectrum beta lactamase (ESBL) producing Escherichia coli, DNR (do not resuscitate) Dementia Qualifiers: Dementia type: unspecified type Dementia behavioral disturbance: without behavioral disturbance Qualified Code(s): F03.90 - Unspecified dementia without behavioral disturbance Anemia Qualifiers: Anemia type: unspecified type Qualified Code(s): D64.9 - Anemia, unspecified Condition: Fair Disposition: HOME, SELF-CARE Instructions: Urinary Tract Infection ([facility]), Hypoglycemia ([facility]) Additional Instructions: The patient that was found the house a low blood sugar blood sugar was 38 upon arrival. Patient was given an amp of D50 with improvement sugar sugars been stable during her time here. Patient's urinalysis again does shows signs of infection however this does look to be chronic. I did discuss with Dr. Solis states that the patient should be given a dose of Invanz and then discharged back to the skilled nursing is the most of the altered mental status and changes that we see her more likely due to the hypoglycemia. Patient was given Invanz patient is to continue her regular medications as scheduled Chest x-ray showed no acute changes You may use the atropine drops 2 drops and the oral cavity 4 times a day to aid in secretion control Referrals: ALONDRA PHILLIPS MD [Primary Care Provider] - Follow up as needed
[2017-02-15 15:21] VITALS: BP 133/79
== END 2017-02-15 15:21 | disposition home or self-care (01) ==
LOC: ER 10:22
DX: N39.0 Urinary tract infection, site not specified (principal); B96.20 Unspecified Escherichia coli [E. coli] as the cause of diseases classified elsewhere; F03.90 Unspecified dementia, unspecified severity, without behavioral disturbance, psychotic disturbance, mood disturbance, and anxiety; I12.0 Hypertensive chronic kidney disease with stage 5 chronic kidney disease or end stage renal disease; E11.22 Type 2 diabetes mellitus with diabetic chronic kidney disease; N18.6 End stage renal disease; Z99.2 Dependence on renal dialysis; E11.649 Type 2 diabetes mellitus with hypoglycemia without coma; L89.109 Pressure ulcer of unspecified part of back, unspecified stage; E87.5 Hyperkalemia; D64.9 Anemia, unspecified; I25.10 Atherosclerotic heart disease of native coronary artery without angina pectoris; J44.9 Chronic obstructive pulmonary disease, unspecified; Z66 Do not resuscitate; Z88.1 Allergy status to other antibiotic agents; Z88.2 Allergy status to sulfonamides; Z87.01 Personal history of pneumonia (recurrent); Z86.14 Personal history of Methicillin resistant Staphylococcus aureus infection; Z98.61 Coronary angioplasty status
CPT/HCPCS: 99285; 96361; 96374; 36415; 87040; 87086; 82962; 83690; 85025; 87088; 80048; 81001; 87186; 82803; 83605; 71010; J3490; J7040; A9270

== ENCOUNTER 2017-02-19 16:08 | Outpatient (CLI) | payer MEDICARE, MEDICAID ==
[2017-02-19 16:50] LABS: HEMATOCRIT 20.8 % (36.0-47.0); HGB HCT DIFFERENCE -0.1; MEAN CORPUSCULAR HEMOGLOBIN 27.5 pg (27.0-33.4); MEAN CORPUSCULAR HGB CONC 33.1 g/dL (32.0-36.0); MEAN CORPUSCULAR VOLUME 83 fl (80-97); RED BLOOD COUNT 2.51 10^6/uL (3.72-5.28); WHITE BLOOD COUNT 6.3 10^3/uL (4.0-10.5)
[2017-02-19 16:53] LABS: HEMOGLOBIN 6.9 g/dL (12.0-15.5)
[2017-02-19] MEDS ORDERED: LIDOCAINE 1% INJ-PF (10 MG/ML) 30 ML SDV INJ ONE (22:45)
--- NOTE | 2017-02-20 00:29 | OPERATIVE REPORT E ---
Operative Report NAME: VAISHALI GODOY : 1930 AGE: 86Y DATE OF SURGERY: 02/19/2017 ROOM: 529 PREOPERATIVE DIAGNOSES: 1. Poor veins for IV access. 2. Patient on hemodialysis. POSTOPERATIVE DIAGNOSES: 1. Poor veins for IV access. 2. A hemodialysis patient with a hemoglobin of 6.9 needed blood transfusion. OPERATION: Insertion of triple lumen right femoral vein catheter under ultrasound guidance. SURGEON: DUANE LUNA M.D. DESCRIPTION OF PROCEDURE: Patient was placed in a supine position and the neck veins checked with ultrasound. Unfortunately, the patient has a small right internal jugular vein and has hemodialysis access through the right arm. However, on the left side the patient is unable to turn her neck to the right and, therefore, not quite easily accessible. Next, ultrasound was checked of the right femoral vein and noted to have reasonable size femoral vein. Next, the right groin was then prepped and draped in the usual sterile fashion. With the help of the ultrasound, the right femoral vein was then punctured and a guidewire passed through the needle into the area of the inferior vena cava. The needle was removed and the puncture site enlarged with a #11 blade. A dilator was then passed through the guidewire and through the *------* opening in the femoral area. The dilator was removed and this time a triple-lumen catheter was inserted through the guidewire into the inferior vena cava. The guidewire subsequently pulled out and all the ports irrigated nicely with saline and also aspirated blood quite easily. Next, the catheter was then anchored to the skin with 3-0 silk. A Biopatch was placed at the puncture and a sterile dressing placed over the catheter. About 5 mL of lidocaine was used prior to placement of the catheter. The patient tolerated the procedure well. DICTATING PHYSICIAN: DUANE LUNA M.D. [id number] PHY#: [id number] ID: [id number] JOB#: [id number] ACCT: [id number] cc:DUANE LUNA M.D. >
[2017-02-20] MEDS ORDERED: NORMAL SALINE INJ/PF 0.9% 10 ML SDV IV PRN (00:44)
[2017-02-20] MEDS ORDERED: ACETAMINOPHEN 325 MG TABLET PO PRN ×2 (03:31→03:43)
[2017-02-20] MEDS ORDERED: DIPHENHYDRAMINE HCL 25 MG CAPSULE PO PRN (03:32)
[2017-02-20] MEDS ORDERED: FUROSEMIDE INJ/PF 40 MG/4 ML SDV IV ONE (06:00)
[2017-02-20 07:57] VITALS: BP 166/56
== END 2017-02-20 11:10 ==
LOC: II 16:08 → 5 16:08 → 2S 16:16 → 5TH 16:16 → II 02-20 11:10
PROVIDERS: ATTEND Internal Medicine Nephrology
PROC: 06H033Z Insertion of Infusion Device into Inferior Vena Cava, Percutaneous Approach (ICD-10-PCS; principal; 2017-02-19)
PROC: B549ZZA Ultrasonography of Inferior Vena Cava, Guidance (ICD-10-PCS; 2017-02-19)
DX: N18.6 End stage renal disease (principal); D63.1 Anemia in chronic kidney disease; Z99.2 Dependence on renal dialysis
CPT/HCPCS: 36558; 76937; C1751; 36430; 82962; 86850; 86900; 86901; 86920; J1642; J1940; P9016

== ENCOUNTER 2017-02-23 17:48 | Emergency (ER) | payer MEDICARE, MEDICAID, OTHER ==
--- NOTE | 2017-02-23 18:58 | ER Document Report ---
ED General - General Chief Complaint: Problem with Feeding Tube Stated Complaint: FEEDING TUBE PROBLEM Time Seen by Provider: 02/23/17 18:37 Cannot obtain history due to: Dementia Notes: Patient is an 86-year-old very chronically ill patient with chronic kidney disease, dementia who is nonverbal, G-tube dependent presents after G-tube was found to be removed patient is unable to provide any additional meaningful history. TRAVEL OUTSIDE OF THE [place] IN LAST 30 DAYS: No - Related Data Allergies/Adverse Reactions: ciprofloxacin [Ciprofloxacin] Allergy (Severe, Verified 08/23/16 20:22) rash sulfamethoxazole [Sulfamethoxazole] Allergy (Unknown, Verified 08/23/16 20:22) rash Past Medical History - General Information source: Emergency Med Personnel Cannot obtain history due to: Dementia - Social History Smoking Status: Unknown if Ever Smoked Frequency of alcohol use: None Drug Abuse: None Lives with: Detention Family History: Reviewed & Not Pertinent, Other - Unable to obtain due to dementia Patient has suicidal ideation: No Patient has homicidal ideation: No - Past Medical History Cardiac Medical History: Reports: Hx Congestive Heart Failure, Hx Coronary Artery Disease, Hx Hypercholesterolemia, Hx Hypertension Denies: Hx Atrial Fibrillation, Hx Heart Attack, Hx Pulmonary Embolism Pulmonary Medical History: Reports: Hx Asthma, Hx Bronchitis - hx of, Hx COPD, Hx Pneumonia - hx of, Hx Sleep Apnea Denies: Hx Respiratory Failure, Hx Tuberculosis Neurological Medical History: Denies: Hx Cerebrovascular Accident, Hx Seizures Endocrine Medical History: Reports: Hx Diabetes Mellitus Type 2. Denies: Hx Diabetes Mellitus Type 1 Renal/ Medical History: Reports: Hx End Stage Renal Disease. Denies: Hx Peritoneal Dialysis Malignancy Medical History: Denies: Hx Lung Cancer GI Medical History: Denies: Hx Gastroesophageal Reflux Disease, Hx Hiatal Hernia Musculoskeltal Medical History: Reports Hx 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, Denies Hx Fibromyalgia, Denies Hx Muscular Dystrophy Psychiatric Medical History: Reports: Hx Dementia Denies: Hx Depression Traumatic Medical History: Denies: Hx Fractures Infectious Medical History: Reports: Hx MRSA Past Surgical History: Reports: Hx Cardiac Catheterization - cardiac stent 2010 , Hx Coronary Stent, Hx Orthopedic Surgery - Back surgery, Hx Vascular Surgery - Fistula to the right arm for dialysis. Denies: Hx Hysterectomy, Hx Pacemaker - Immunizations Immunizations up to date: Yes Hx Diphtheria, Pertussis, Tetanus Vaccination: Yes Hx Pneumococcal Vaccination: 10/13/09 Review of Systems - Review of Systems -: Yes ROS unobtainable due to patient's medical condition Physical Exam - Vital signs Vitals: Temp Pulse Resp BP Pulse Ox 97.9 F 76 16 122/89 H 100 02/23/17 18:04 02/23/17 18:04 02/23/17 18:04 02/23/17 18:04 02/23/17 18:04 Interpretation: Normal Notes: PHYSICAL EXAMINATION: GENERAL: Frail, nonverbal, no acute distress HEAD: Atraumatic, normocephalic. EYES: Pupils equal round and reactive to light, extraocular movements intact, sclera anicteric, conjunctiva are normal. ENT: nares patent, mildly dry oropharynx. NECK: Normal range of motion, supple without lymphadenopathy LUNGS: Breath sounds clear to auscultation bilaterally and equal. No wheezes rales or rhonchi. HEART: Regular rate and rhythm without murmurs ABDOMEN: Soft, nontender, normoactive bowel sounds. No guarding, no rebound. No masses appreciated. EXTREMITIES: Trace edema in the bilateral lower extremities. No cyanosis. PSYCH: Non-verbal SKIN: Warm, Dry, normal turgor, Course - Re-evaluation Re-evalutation: 02/23/17 18:55 Patient presents with removal of a chronic G-tube. No additional issues. This was replaced with a Garcia catheter is none of our available G-tube catheters would fit her opening. There was return of gastric contents. Patient will be discharged back to the facility. - Vital Signs Vital signs: Temp Pulse Resp BP Pulse Ox 97.9 F 76 16 122/89 H 100 02/23/17 18:04 02/23/17 18:04 02/23/17 18:04 02/23/17 18:04 02/23/17 18:04 Discharge - Discharge Clinical Impression: Gastrostomy tube dysfunction Dementia Qualifiers: Dementia type: unspecified type Dementia behavioral disturbance: without behavioral disturbance Qualified Code(s): F03.90 - Unspecified dementia without behavioral disturbance Dysphagia Qualifiers: Dysphagia type: unspecified Qualified Code(s): R13.10 - Dysphagia, unspecified Condition: Stable Disposition: HOME-SNF (ED ONLY) Additional Instructions: We do not have the correct catheter. A catheter was inserted to keep the tract patent. You will need to find an appropriate replacement catheter for this patient.
[2017-02-23 21:35] VITALS: BP 127/73
== END 2017-02-23 20:38 ==
LOC: ER 17:48
PROC: 0D20XUZ Change Feeding Device in Upper Intestinal Tract, External Approach (ICD-10-PCS; principal; 2017-02-23)
DX: K94.23 Gastrostomy malfunction (principal); F03.90 Unspecified dementia, unspecified severity, without behavioral disturbance, psychotic disturbance, mood disturbance, and anxiety; R13.10 Dysphagia, unspecified; I25.10 Atherosclerotic heart disease of native coronary artery without angina pectoris; I12.0 Hypertensive chronic kidney disease with stage 5 chronic kidney disease or end stage renal disease; E11.22 Type 2 diabetes mellitus with diabetic chronic kidney disease; N18.6 End stage renal disease; R60.0 Localized edema; Z88.1 Allergy status to other antibiotic agents; Z86.14 Personal history of Methicillin resistant Staphylococcus aureus infection
CPT/HCPCS: 99283

== ENCOUNTER 2017-04-06 01:55 | Emergency (ER) | payer MEDICARE, MEDICAID ==
--- NOTE | 2017-04-06 02:47 | ER Document Report ---
ED General - General Chief Complaint: Fall Stated Complaint: FALL,UNKNOWN PAIN Time Seen by Provider: 04/06/17 02:13 Cannot obtain history due to: Dementia Notes: Patient is an 87-year-old female who presents by EMS after being found lying next to her bed at the senior living. No injury was identified but she was referred to the emergency department for further evaluation. Patient is severely demented, unable to provide any meaningful history. She denies any acute complaints or pain. TRAVEL OUTSIDE OF THE [place] IN LAST 30 DAYS: No - Related Data Allergies/Adverse Reactions: ciprofloxacin [Ciprofloxacin] Allergy (Severe, Verified 04/06/17 02:28) rash sulfamethoxazole [Sulfamethoxazole] Allergy (Unknown, Verified 04/06/17 02:28) rash Past Medical History - General Information source: Emergency Med Personnel Cannot obtain history due to: Dementia - Social History Smoking Status: Unknown if Ever Smoked Lives with: Longterm Family History: Reviewed & Not Pertinent, Other - Unable to obtain due to dementia - Past Medical History Cardiac Medical History: Reports: Hx Congestive Heart Failure, Hx Coronary Artery Disease, Hx Hypercholesterolemia, Hx Hypertension Denies: Hx Atrial Fibrillation, Hx Heart Attack, Hx Pulmonary Embolism Pulmonary Medical History: Reports: Hx Asthma, Hx Bronchitis - hx of, Hx COPD, Hx Pneumonia - hx of, Hx Sleep Apnea Denies: Hx Respiratory Failure, Hx Tuberculosis Neurological Medical History: Denies: Hx Cerebrovascular Accident, Hx Seizures Endocrine Medical History: Reports: Hx Diabetes Mellitus Type 2. Denies: Hx Diabetes Mellitus Type 1 Renal/ Medical History: Reports: Hx End Stage Renal Disease. Denies: Hx Peritoneal Dialysis Malignancy Medical History: Denies: Hx Lung Cancer GI Medical History: Denies: Hx Gastroesophageal Reflux Disease, Hx Hiatal Hernia Musculoskeltal Medical History: Reports Hx 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, Denies Hx Fibromyalgia, Denies Hx Muscular Dystrophy Psychiatric Medical History: Reports: Hx Dementia Denies: Hx Depression Traumatic Medical History: Denies: Hx Fractures Infectious Medical History: Reports: Hx MRSA Past Surgical History: Reports: Hx Cardiac Catheterization - cardiac stent 2010 , Hx Coronary Stent, Hx Orthopedic Surgery - Back surgery, Hx Vascular Surgery - Fistula to the R arm for dialysis. Denies: Hx Hysterectomy, Hx Pacemaker - Immunizations Immunizations up to date: Yes Hx Diphtheria, Pertussis, Tetanus Vaccination: Yes Hx Pneumococcal Vaccination: 10/13/09 Review of Systems - Review of Systems -: Yes ROS unobtainable due to patient's medical condition Physical Exam - Vital signs Vitals: Temp Pulse Resp BP Pulse Ox 97.5 F 71 18 157/50 H 100 04/06/17 02:07 04/06/17 02:07 04/06/17 02:07 04/06/17 02:07 04/06/17 02:07 Interpretation: Hypertensive Notes: PHYSICAL EXAMINATION: GENERAL: No acute distress HEAD: Atraumatic, normocephalic. EYES: Pupils equal round and reactive to light, extraocular movements intact, sclera anicteric, conjunctiva are normal. ENT: nares patent, no oral pharyngeal trauma. No hemotympanum, no Sweeney's sign , no raccoon eyes. NECK: No midline cervical spine tenderness. Patient able to move their head to 45 bilaterally without any discomfort. LUNGS: Breath sounds clear to auscultation bilaterally and equal. No wheezes rales or rhonchi. HEART: Regular rate and rhythm without murmurs. CHEST WALL: No ecchymosis over the chest wall. ABDOMEN: Soft, nontender, normoactive bowel sounds. No guarding, no rebound. No abdominal bruising EXTREMITIES: no pitting or edema. No long bone deformities. NEUROLOGICAL: Moves all extremities spontaneously. PSYCH: Alert, oriented only to person SKIN: Warm, Dry, normal turgor, Course - Re-evaluation Re-evalutation: 04/06/17 02:40 Presentation of a well appearing elderly patient in no acute distress, vitals within normal limits after a mechanical mechanical fall. Was found at the side of her bed by the senior living staff and the injury was noted that she was referred to the emergency department for further evaluation. Patient is severely demented and unable to provide any meaningful history which is her baseline. No focal neurologic deficits on exam, no evidence of basilar skull fracture on exam without evidence of hemotympanum, raccoon eyes, or periauricular hematoma. No evidence of head or neck trauma. No midline c-spine tenderness. Full neck ROM. No deformities or limited range of motion in any joint space. Chest and abdominal exam are benign without any focal tenderness, shortness of breath, or bruising over the chest or abdominal wall. Patient has no flank tenderness. There is no obvious findings on trauma exam today and therefore no further imaging or evaluation will be obtained at this time. At this time will discharge with return precautions and follow-up recommendations. - Vital Signs Vital signs: Temp Pulse Resp BP Pulse Ox 97.5 F 71 18 157/50 H 100 04/06/17 02:07 04/06/17 02:07 04/06/17 02:07 04/06/17 02:07 04/06/17 02:07 Discharge - Discharge Clinical Impression: Dementia Qualifiers: Dementia type: Alzheimer's disease Alzheimer's disease onset: unspecified onset Dementia behavioral disturbance: without behavioral disturbance Qualified Code(s): G30.9 - Alzheimer's disease, unspecified Fall Qualifiers: Encounter type: initial encounter Qualified Code(s): W19.XXXA - Unspecified fall, initial encounter Additional Instructions: There is no evidence of acute injury on today's exam. Return for any additional concerns.
[2017-04-06 03:32] VITALS: BP 157/57
== END 2017-04-06 03:32 ==
LOC: ER 01:55
DX: Z04.3 Encounter for examination and observation following other accident (principal); W19.XXXA Unspecified fall, initial encounter; Y92.122 Bedroom in nursing home as the place of occurrence of the external cause; G30.9 Alzheimer's disease, unspecified; F02.80 Dementia in other diseases classified elsewhere, unspecified severity, without behavioral disturbance, psychotic disturbance, mood disturbance, and anxiety; I25.10 Atherosclerotic heart disease of native coronary artery without angina pectoris; I12.0 Hypertensive chronic kidney disease with stage 5 chronic kidney disease or end stage renal disease; N18.6 End stage renal disease; Z99.2 Dependence on renal dialysis; Z88.1 Allergy status to other antibiotic agents; Z86.14 Personal history of Methicillin resistant Staphylococcus aureus infection
CPT/HCPCS: 99282

== ENCOUNTER → 2017-04-23 | Outpatient (CLI) | payer MEDICARE, MEDICAID, OTHER | LOC: PNR 16:58 | PROVIDERS: ATTEND Internal Medicine | DX: E16.2 Hypoglycemia, unspecified (principal) | CPT/HCPCS: 83036 ==

== ENCOUNTER 2017-05-10 16:09 | Emergency (ER) | payer MEDICARE, MEDICAID ==
--- NOTE | 2017-05-10 16:21 | ER Document Report ---
ED Respiratory Problem - General Mode of Arrival: Medic Information source: Patient TRAVEL OUTSIDE OF THE [place] IN LAST 30 DAYS: No - HPI Onset: Other - Refer to HPI notes Recently seen / treated by doctor: Yes - came from dialysis <FAREED SAN - Last Filed: 05/10/17 16:21> <NROM WEBSTER - Last Filed: 05/10/17 21:04> - General Stated Complaint: DIFFICULTY BREATHING Time Seen by Provider: 05/10/17 16:18 Notes: Patient is an 87 year old female presenting to the emergency department for respiratory distress. Patient was being picked up from dialysis to be transported back to her senior living when she was found to have a 90% O2 saturation on a nonrebreather. The transport team was unsure if the patient was on O2 at dialysis when they arrived. Patient is O2 dependent and is usually on 4 liters. Patient was brought to the ED instead of her senior living. Patient was placed on 4 liters of oxygen and is at 100% oxygen saturation. (FAREED SAN) - Related Data Allergies/Adverse Reactions: ciprofloxacin [Ciprofloxacin] Allergy (Severe, Verified 04/06/17 02:28) rash sulfamethoxazole [Sulfamethoxazole] Allergy (Unknown, Verified 04/06/17 02:28) rash Past Medical History - General Information source: Patient - Social History Smoking Status: Unknown if Ever Smoked Family History: None, Other - Unable to obtain due to dementia - Past Medical History Cardiac Medical History: Reports: Hx Congestive Heart Failure, Hx Coronary Artery Disease, Hx Hypercholesterolemia, Hx Hypertension Pulmonary Medical History: Reports: Hx Asthma, Hx Bronchitis - hx of, Hx COPD, Hx Pneumonia - hx of, Hx Sleep Apnea Endocrine Medical History: Reports: Hx Diabetes Mellitus Type 2 Renal/ Medical History: Reports: Hx End Stage Renal Disease Musculoskeltal Medical History: Reports Hx Arthritis - generalized-in Psychiatric Medical History: Reports: Hx Dementia Infectious Medical History: Reports: Hx MRSA Past Surgical History: Reports: Hx Cardiac Catheterization - cardiac stent 2010 , Hx Coronary Stent, Hx Orthopedic Surgery - Back surgery, Hx Vascular Surgery - Fistula to the R arm for dialysis - Immunizations Immunizations up to date: Yes Hx Diphtheria, Pertussis, Tetanus Vaccination: Yes Hx Pneumococcal Vaccination: 10/13/09 <FAREED SAN - Last Filed: 05/10/17 16:21> Review of Systems - Review of Systems Constitutional: See HPI EENT: No symptoms reported Cardiovascular: No symptoms reported Respiratory: See HPI Gastrointestinal: No symptoms reported Genitourinary: No symptoms reported Female Genitourinary: No symptoms reported Musculoskeletal: No symptoms reported Skin: No symptoms reported Hematologic/Lymphatic: No symptoms reported Neurological/Psychological: No symptoms reported -: Yes All other systems reviewed and negative <FAREED SAN - Last Filed: 05/10/17 16:21> Physical Exam <JASWINDERFAREED - Last Filed: 05/10/17 16:21> <NORM WEBSTER - Last Filed: 05/10/17 21:04> - Vital signs Vitals: Resp 23 H 05/10/17 16:19 - Notes Notes: GENERAL: Alert, chronically ill appearing. No acute distress. HEAD: Normocephalic, atraumatic. EYES: Appear normal. Pupils equal, round, and reactive to light. ENT: Moist mucus membranes, tongue midline. NECK: Full range of motion. Supple. Trachea midline. LUNGS: Clear to auscultation bilaterally, no wheezes, rales, or rhonchi. No respiratory distress. 100% O2 saturation on 4L NC. Small cough during exam. HEART: Regular rate and rhythm. No murmurs, gallops, or rubs. ABDOMEN: Soft, non-tender. Non-distended. Normal bowel sounds. BACK: Wound vac over the right buttocks. EXTREMITIES: Moves all 4 extremities spontaneously. Normal strength. No peripheral edema. Shunt to the right forearm. NEUROLOGICAL: Alert and oriented x3. No focal neurological deficits. GSC 15. PSYCH: Demented. SKIN: Warm, dry, normal turgor. No rashes or lesions noted. (JASWINDERFAREED) Course <FAREED SAN - Last Filed: 05/10/17 16:21> - Laboratory Result Diagrams: 05/10/17 19:00 05/10/17 19:00 - Diagnostic Test Radiology reviewed: Image reviewed, Reports reviewed - Stable cardiomegaly, mild pulmonary vascular congestion, left basilar airspace disease which is probably chronic <NORM WEBSTER - Last Filed: 05/10/17 21:04> - Re-evaluation Re-evalutation: 05/10/17 19:50 The history suggests the patient was left off of her oxygen after dialysis and was hypoxic when transport came to pick her up. Patient back on oxygen fix that problem. In the emergency room she is found to have pyuria, so will be treated for UTI while cultures are pending. (NORM WEBSTER) - Vital Signs Vital signs: Temp Pulse Resp BP Pulse Ox 17 146/60 H 100 05/10/17 18:01 05/10/17 18:01 05/10/17 18:01 - Laboratory Laboratory results interpreted by me: 05/10/17 05/10/17 05/10/17 17:04 19:00 19:00 Hgb 10.4 L Hct 31.4 L RDW 18.1 H Seg Neutrophils % 79.5 H Lymphocytes % 6.5 L Sodium 132.4 L Potassium 3.5 L Chloride 96 L Carbon Dioxide 31 H Creatinine 1.50 H Est GFR ( Amer) 40 L Est GFR (Non-Af Amer) 33 L Alkaline Phosphatase 142 H Creatine Kinase < 20 L Albumin 2.4 L Urine Protein 100 H Urine Blood MODERATE H Ur Leukocyte Esterase MODERATE H Urine Ascorbic Acid 20 H Discharge <FAREED SAN - Last Filed: 05/10/17 16:21> <NORM WEBSTER - Last Filed: 05/10/17 21:04> - Discharge Clinical Impression: Hypoxemia requiring supplemental oxygen, Pyuria, Chronic renal failure, stage 5 Condition: Stable Disposition: HOME, SELF-CARE Additional Instructions: It appears the low oxygen levels may have been due to being left off of oxygen after dialysis. You also found to have a large amount of pus cells in your urine today so that urine will be cultured. You will be started on antibiotics to take while the cultures are pending. Have your doctor follow-up with the hospital's lab in 2 days to check on the culture results. RETURN TO THE EMERGENCY ROOM IF ANY NEW OR WORSENING SYMPTOMS. Prescriptions: Cephalexin Monohydrate [Keflex 250 mg/5 ml Susp 100 ml] 10 ml PEG TID #150 ml Referrals: ALONDRA PHILLIPS MD [Primary Care Provider] - Follow up as needed Scribe Attestation: 05/10/17 19:54 I personally performed the services described in the documentation, reviewed and edited the documentation which was dictated to the scribe in my presence, and it accurately records my words and actions. (NORM WEBSTER) Scribe Documentation - Scribe Written by Scribe:: Pasha Andersen 05/10/17 16:28 acting as scribe for :: Tamika <FAREED SAN - Last Filed: 05/10/17 16:21>
--- NOTE | 2017-05-10 17:32 | RADIOLOGY REPORT (SQ) ---
EXAM DESCRIPTION: CHEST SINGLE VIEW COMPLETED DATE/TIME: 05/10/2017 5:20 pm REASON FOR STUDY: low O2 sat COMPARISON: 02/15/2017 EXAM PARAMETERS: NUMBER OF VIEWS: One view. TECHNIQUE: Single frontal radiographic view of the chest acquired. RADIATION DOSE: NA LIMITATIONS: None. FINDINGS: LUNGS AND PLEURA: The left lung base appears opacified, likely on the basis of a layering pleural effusion; notably, air bronchograms are present, consistent with superimposed pulmonary conso lidation. MEDIASTINUM AND HILAR STRUCTURES: No masses. Contour normal. HEART AND VASCULAR STRUCTURES: Stable cardiac enlargement. Mild pulmonary congestion. BONES: No acute findings. HARDWARE: Right axillary surgical clips. OTHER: No other significant finding. IMPRESSION: Left lung base opacification which appears to be on the basis of a pleural effusion. Sood spect superimposed pulmonary consolidation. TECHNICAL DOCUMENTATION: JOB ID: [id number]
[2017-05-10 17:45] LABS: APPEARANCE,URINE TURBID; BILIRUBIN,URINE NEGATIVE (NEGATIVE); GLUCOSE, URINE NEGATIVE (NEGATIVE); KETONES,URINE NEGATIVE (NEGATIVE); LEUKOCYTE ESTERASE,URINE MODERATE (NEGATIVE); NITRITE,URINE NEGATIVE (NEGATIVE); PROTEIN,URINE 100 mg/dL (NEGATIVE); URINE SPECIFIC GRAVITY 1.014; UROBILINOGEN,URINE NEGATIVE mg/dL (<2.0)
[2017-05-10 19:23] LABS: ABSOLUTE BASOPHILS # (AUTO) 0.1 10^3/uL (0.0-0.2); ABSOLUTE EOSINOPHILS # (AUTO) 0.2 10^3/uL (0.0-0.6); ABSOLUTE LYMPHOCYTES (AUTO) 0.6 10^3/uL (0.5-4.7); ABSOLUTE MONOCYTES (AUTO) 1.1 10^3/uL (0.1-1.4); ABSOLUTE NEUT (AUTO) 7.3 10^3/uL (1.7-8.2); BASOPHILS % (AUTO) 0.5 % (0-2); EOSINOPHILS % (AUTO) 1.7 % (0-6); HEMATOCRIT 31.4 % (36.0-47.0); HEMOGLOBIN 10.4 g/dL (12.0-15.5); HGB HCT DIFFERENCE -0.2; LYMPHOCYTES % (AUTO) 6.5 % (13-45); MEAN CORPUSCULAR HEMOGLOBIN 27.1 pg (27.0-33.4); MEAN CORPUSCULAR VOLUME 82 fl (80-97); MONOCYTES % (AUTO) 11.8 % (3-13); RED BLOOD COUNT 3.82 10^6/uL (3.72-5.28); RED CELL DISTRIBUTION WIDTH 18.1 % (11.5-14.0); SEGMENTED NEUTROPHILS % (AUTO) 79.5 % (42-78); WHITE BLOOD COUNT 9.2 10^3/uL (4.0-10.5)
[2017-05-10 19:37] LABS: ALANINE AMINOTRANSFERASE 25 U/L (9-52); ALBUMIN 2.4 g/dL (3.5-5.0); ALKALINE PHOSPHATASE 142 U/L (38-126); ANION GAP 5 (5-19); ASPARTATE AMINO TRANSFERASE 28 U/L (14-36); BILIRUBIN,DIRECT 0.4 mg/dL (0.0-0.4); BILIRUBIN,TOTAL 0.4 mg/dL (0.2-1.3); BLOOD UREA NITROGEN 15 mg/dL (7-20); CALCIUM 8.5 mg/dL (8.4-10.2); CARBON DIOXIDE 31 mmol/L (22-30); CHLORIDE 96 mmol/L (98-107); GLUCOSE 96 mg/dL (75-110); POTASSIUM 3.5 mmol/L (3.6-5.0); SODIUM 132.4 mmol/L (137-145); TOTAL PROTEIN 6.8 g/dL (6.3-8.2)
[2017-05-10 19:38] LABS: CREATINE KINASE < 20 U/L (30-135)
[2017-05-10] MEDS ORDERED: CEFTRIAXONE INJ 1000 MG VIAL IM ONE (19:47)
[2017-05-10] MEDS ORDERED: LIDOCAINE 1% INJ-PF (10 MG/ML) 30 ML SDV INJ ONE (19:47)
[2017-05-10 19:48] LABS: CREATINE KINASE MB 1.59 ng/mL (<4.55)
[2017-05-10 19:51] LABS: TROPONIN I < 0.012 ng/mL
[2017-05-10 21:29] VITALS: BP 149/62
--- NOTE | 2017-05-11 11:13 | EKG REPORT ---
SEVERITY:- ABNORMAL ECG - SINUS RHYTHM RIGHT BUNDLE BRANCH BLOCK : Confirmed by: Tarsha Irving MD 11-May-2017 11:12:50
== END 2017-05-10 22:01 | disposition home or self-care (01) ==
LOC: ER 16:09
DX: R09.02 Hypoxemia (principal); N39.0 Urinary tract infection, site not specified; N18.5 Chronic kidney disease, stage 5; R06.02 Shortness of breath; Z99.81 Dependence on supplemental oxygen
CPT/HCPCS: 93005; 99285; 96372; 51701; 36415; 87040; 87086; 82553; 82550; 85025; 87088; 80053; 81001; 84484; 87186; 71010; 93010; J3490; J0696; 82962

== ENCOUNTER 2017-05-25 12:38 | Inpatient (IN) | payer MEDICARE, MEDICAID ==
--- NOTE | 2017-05-25 13:11 | RADIOLOGY REPORT (SQ) ---
EXAM DESCRIPTION: CT HEAD WITHOUT COMPLETED DATE/TIME: 05/25/2017 12:47 pm REASON FOR STUDY: bed 2 stroke alert COMPARISON: December 2016 TECHNIQUE: Axial images acquired through the brain without intravenous contrast. Images reviewed wi th bone, brain and subdural windows. Images stored on PACS. All CT scanners at this facility use dose modulation, iterative reconstruction, and/or weight based d osing when appropriate to reduce radiation dose to as low as reasonably achievable (ALARA). [facility]: Dose Right [facility]: CareDose [facility]: Dose Right [facility]: Teradose 4D [facility]: [employer] RADIATION DOSE: mGy. LIMITATIONS: Study is limited due to motion artifact FINDINGS: VENTRICLES: Prominent. CEREBRUM: No masses. No hemorrhage. No midline shift. Areas of low density in the white matter mos t likely due to chronic micro-vascular ischemic change. No evidence for acute infarction. CEREBELLUM: No masses. No hemorrhage. No alteration of density. No evidence for acute infarction. EXTRAAXIAL SPACES: Age-related involutional change. No fluid collections. No masses. ORBITS AND GLOBE: No intra- or extraconal masses. Normal contour of globe without masses. CALVARIUM: No fracture. PARANASAL SINUSES: No fluid or mucosal thickening. SOFT TISSUES: No mass or hematoma. OTHER: No other significant finding. IMPRESSION: Somewhat limited study as noted above. CHRONIC CHANGES OF ATROPHY AND MICROVASCULAR ISC HEMIA. NO ACUTE PROCESS. TECHNICAL DOCUMENTATION: JOB ID: [id number] Quality ID # [id number]: Final reports with documentation of one or more dose reduction techniques (e.g., Au tomated exposure control, adjustment of the mA and/or kV according to patient size, use of iterative reconstruction technique) 2010 [employer]- All Rights Reserved
--- NOTE | 2017-05-25 13:22 | RADIOLOGY REPORT (SQ) ---
EXAM DESCRIPTION: CHEST SINGLE VIEW COMPLETED DATE/TIME: 05/25/2017 12:57 pm REASON FOR STUDY: bed 2 stroke alert COMPARISON: 05/10/2017 EXAM PARAMETERS: NUMBER OF VIEWS: One view. TECHNIQUE: Single frontal radiographic view of the chest acquired. RADIATION DOSE: NA LIMITATIONS: None. FINDINGS: LUNGS AND PLEURA: Increasing densities are identified in the lung bases which has the appe arance of bilateral pleural effusions and I cannot exclude associated atelectasis or infiltrate in th e lung bases. MEDIASTINUM AND HILAR STRUCTURES: No masses. Contour normal. HEART AND VASCULAR STRUCTURES: Cardiac silhouette remains enlarged and is unchanged in configuration. There is pulmonary vascular congestion. BONES: No acute findings. HARDWARE: None in the chest. OTHER: No other significant finding. IMPRESSION: Increasing basilar densities as noted above. TECHNICAL DOCUMENTATION: JOB ID: [id number]
--- NOTE | 2017-05-25 13:29 | ER Document Report ---
ED General - General Stated Complaint: WEAKNESS Time Seen by Provider: 05/25/17 12:45 Mode of Arrival: Medic Information source: Emergency Med Personnel Notes: 87-year-old female chronic kidney disease presents from care facility where he she was last known well at around 10:30 AM. Patient was checked on around 1130 and was noted to have left-sided weakness. Patient brought in is concerning for stroke TRAVEL OUTSIDE OF THE [place] IN LAST 30 DAYS: No - HPI Onset: Just prior to arrival Onset/Duration: Sudden Quality of pain: No pain Severity: Severe Pain Level: Denies Associated symptoms: Weakness Exacerbated by: Denies Relieved by: Denies Similar symptoms previously: No Recently seen / treated by doctor: Yes - Related Data Allergies/Adverse Reactions: ciprofloxacin [Ciprofloxacin] Allergy (Severe, Verified 05/25/17 13:58) rash sulfamethoxazole [Sulfamethoxazole] Allergy (Unknown, Verified 05/25/17 13:58) rash Home Medications: Current Home Medications Insulin Lispro [Humalog] 0 unit SQ ACHS 05/25/17 [History] Sennosides [Senokotxtra] 17.2 mg GT DAILY 05/25/17 [History] Past Medical History - Social History Smoking Status: Never Smoker Cigarette use (# per day): No Chew tobacco use (# tins/day): No Smoking Education Provided: No Family History: None, Other - Unable to obtain due to dementia - Past Medical History Cardiac Medical History: Reports: Hx Congestive Heart Failure, Hx Coronary Artery Disease, Hx Hypercholesterolemia, Hx Hypertension Denies: Hx Atrial Fibrillation, Hx Heart Attack, Hx Pulmonary Embolism Pulmonary Medical History: Reports: Hx Asthma, Hx Bronchitis - hx of, Hx COPD, Hx Pneumonia - hx of, Hx Sleep Apnea Denies: Hx Respiratory Failure, Hx Tuberculosis Neurological Medical History: Denies: Hx Cerebrovascular Accident, Hx Seizures Endocrine Medical History: Reports: Hx Diabetes Mellitus Type 2. Denies: Hx Diabetes Mellitus Type 1 Renal/ Medical History: Reports: Hx End Stage Renal Disease. Denies: Hx Peritoneal Dialysis Malignancy Medical History: Denies: Hx Lung Cancer GI Medical History: Denies: Hx Gastroesophageal Reflux Disease, Hx Hiatal Hernia Musculoskeltal Medical History: Reports Hx 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, Denies Hx Fibromyalgia, Denies Hx Muscular Dystrophy Psychiatric Medical History: Reports: Hx Dementia Denies: Hx Depression Traumatic Medical History: Denies: Hx Fractures Infectious Medical History: Reports: Hx MRSA Past Surgical History: Reports: Hx Cardiac Catheterization - cardiac stent 2010 , Hx Coronary Stent, Hx Orthopedic Surgery - Back surgery, Hx Vascular Surgery - Fistula to the R arm for dialysis. Denies: Hx Hysterectomy, Hx Pacemaker - Immunizations Immunizations up to date: Yes Hx Diphtheria, Pertussis, Tetanus Vaccination: Yes Hx Pneumococcal Vaccination: 10/13/09 Review of Systems - Review of Systems Notes: REVIEW OF SYSTEMS: CONSTITUTIONAL : Denies fever, chills, or sweats. Denies recent illness. EENT: Denies eye, ear, throat, or mouth pain or symptoms. Denies nasal or sinus congestion or discharge. Denies throat, tongue, or mouth swelling or difficulty swallowing. CARDIOVASCULAR: Denies chest pain. Denies palpitations or racing or irregular heart beat. Denies ankle edema. RESPIRATORY: Denies cough, cold, or chest congestion. Denies shortness of breath, difficulty breathing, or wheezing. GASTROINTESTINAL: Denies abdominal pain or distention. Denies nausea, vomiting , or diarrhea. Denies blood in vomitus, stools, or per rectum. Denies black, tarry stools. Denies constipation. GENITOURINARY: Denies difficulty urinating, painful urination, burning, frequency, blood in urine, or discharge. FEMALE GENITOURINARY: Denies vaginal bleeding, heavy or abnormal periods, irregular periods. Denies vaginal discharge or odor. MUSCULOSKELETAL: Denies back or neck pain or stiffness. Denies joint pain or swelling. SKIN: Denies rash, lesions or sores. HEMATOLOGIC : Denies easy bruising or bleeding. LYMPHATIC: Denies swollen, enlarged glands. NEUROLOGICAL: weakness left sided PSYCHIATRIC: Denies anxiety or stress. Denies depression, suicidal ideation, or homicidal ideation. ALL OTHER SYSTEMS REVIEWED AND NEGATIVE. PHYSICAL EXAMINATION: GENERAL: Well-appearing, well-nourished and in no acute distress. HEAD: Atraumatic, normocephalic. EYES: Pupils equal round and reactive to light, extraocular movements intact, conjunctiva are normal. ENT: Nares patent, oropharynx clear without exudates. Moist mucous membranes. NECK: Normal range of motion, supple without lymphadenopathy LUNGS: Breath sounds clear to auscultation bilaterally and equal. No wheezes rales or rhonchi. HEART: Regular rate and rhythm without murmurs ABDOMEN: Soft, nontender, nondistended abdomen. No guarding, no rebound. No masses appreciated. Female : deferred Musculoskeletal: Normal range of motion, no pitting or edema. No cyanosis. NEUROLOGICAL: left sided weakness noted, right sided strength normal. please see nih score PSYCH: Normal mood, normal affect. SKIN: Warm, Dry, normal turgor, no rashes or lesions noted. Dictation was performed using [employer] voice recognition software Course - Re-evaluation Re-evalutation: 05/25/17 13:29 Dr Gallagher called for assistance, I bleieve patient is having cva but is extremely elderly and frail and may not do well 05/25/17 13:58 Daughter spoke with sibling and they agree not to give thrombolytics at this time, I believe given patient's comorbidities and age that this is appropriate 05/25/17 14:24 Patient will be admitted to Dr. Richardson service 05/25/17 14:42 - Laboratory Result Diagrams: 05/25/17 13:15 05/25/17 13:15 Laboratory results interpreted by me: 05/25/17 05/25/17 05/25/17 13:15 13:15 13:15 Hgb 10.5 L Hct 32.1 L MCH 26.9 L RDW 19.6 H Lymphocytes % 7.0 L Monocytes % 16.2 H Absolute Lymphocytes 0.3 L APTT 36.5 H Sodium 128.7 L Chloride 92 L Carbon Dioxide 32 H BUN 33 H Creatinine 1.62 H Est GFR ( Amer) 36 L Est GFR (Non-Af Amer) 30 L Alkaline Phosphatase 187 H Creatine Kinase < 20 L Albumin 2.5 L - Diagnostic Test Radiology reviewed: Image reviewed, Reports reviewed - no acute abnormality - EKG Interpretation by Me EKG shows normal: Sinus rhythm, [place], Intervals, QRS Complexes Discharge - Discharge Clinical Impression: End-stage renal disease on hemodialysis, Weakness of left side of body Cerebrovascular accident (CVA) Qualifiers: CVA mechanism: unspecified Qualified Code(s): I63.9 - Cerebral infarction, unspecified Condition: Stable Disposition: ADMITTED INPATIENT Admitting Provider: Debra Unit Admitted: [facility]
[2017-05-25 13:35] LABS: PROTHROMBIN TIME 13.7 SEC (11.4-15.4)
[2017-05-25 13:36] LABS: PARTIAL THROMBOPLASTIN TIME 36.5 SEC (23.5-35.8)
[2017-05-25 13:37] LABS: ABSOLUTE EOSINOPHILS # (AUTO) 0.1 10^3/uL (0.0-0.6); EOSINOPHILS % (AUTO) 2.2 % (0-6); MEAN CORPUSCULAR HEMOGLOBIN 26.9 pg (27.0-33.4)
[2017-05-25 13:39] LABS: ABSOLUTE BASOPHILS # (AUTO) 0.1 10^3/uL (0.0-0.2); ABSOLUTE LYMPHOCYTES (AUTO) 0.3 10^3/uL (0.5-4.7); ABSOLUTE MONOCYTES (AUTO) 0.7 10^3/uL (0.1-1.4); ABSOLUTE NEUT (AUTO) 3.4 10^3/uL (1.7-8.2); BASOPHILS % (AUTO) 1.4 % (0-2); HEMATOCRIT 32.1 % (36.0-47.0); HEMOGLOBIN 10.5 g/dL (12.0-15.5); HGB HCT DIFFERENCE -0.6; MEAN CORPUSCULAR HGB CONC 32.8 g/dL (32.0-36.0); MEAN CORPUSCULAR VOLUME 82 fl (80-97); MONOCYTES % (AUTO) 16.2 % (3-13); RED CELL DISTRIBUTION WIDTH 19.6 % (11.5-14.0); SEGMENTED NEUTROPHILS % (AUTO) 73.2 % (42-78); WHITE BLOOD COUNT 4.6 10^3/uL (4.0-10.5)
[2017-05-25 13:55] LABS: ALANINE AMINOTRANSFERASE 32 U/L (9-52); ALBUMIN 2.5 g/dL (3.5-5.0); ALKALINE PHOSPHATASE 187 U/L (38-126); ANION GAP 5 (5-19); ASPARTATE AMINO TRANSFERASE 30 U/L (14-36); BILIRUBIN,DIRECT 0.4 mg/dL (0.0-0.4); BILIRUBIN,TOTAL 0.4 mg/dL (0.2-1.3); BLOOD UREA NITROGEN 33 mg/dL (7-20); CALCIUM 8.6 mg/dL (8.4-10.2); CARBON DIOXIDE 32 mmol/L (22-30); CHLORIDE 92 mmol/L (98-107); CREATININE RESULT 1.62 mg/dL (0.52-1.25); GLUCOSE 101 mg/dL (75-110); POTASSIUM 4.3 mmol/L (3.6-5.0); SODIUM 128.7 mmol/L (137-145); TOTAL PROTEIN 7.1 g/dL (6.3-8.2)
[2017-05-25 13:59] LABS: ANISOCYTOSIS 2+; CREATINE KINASE < 20 U/L (30-135); HYPOCHROMASIA SLIGHT; OVALOCYTES SLIGHT; POIKILOCYTOSIS SLIGHT; POLYCHROMASIA SLIGHT; TEAR DROP CELLS SLIGHT
[2017-05-25 14:01] LABS: TOXIC VACUOLATION PRESENT
[2017-05-25 14:02] LABS: TARGET CELLS 2+
[2017-05-25 14:03] LABS: PLATELET CLUMPS PRESENT
[2017-05-25 14:13] LABS: CREATINE KINASE MB 2.43 ng/mL (<4.55)
[2017-05-25 14:16] LABS: TROPONIN I 0.047 ng/mL
[2017-05-25] MEDS ORDERED: ASPIRIN 325 MG TABLET PO ONE (14:27)
--- NOTE | 2017-05-25 14:43 | ER Document Report ---
ED NIH Stroke Scale - NIH Stroke Scale *: 1. NIH scale should be completed with appropriate accompanying assessment tools. *: 2. The NIH should reflect what the patient is capable of doing and should not be coached by the clinician. 1a. Level of Consciousness: 0=Alert;keenly responsive -: 1=Drowsy -: 2=Obtunded -: 3=Coma/unresponsive or reflex to noxious stimuli. 1a. Responses: 1 1b. Orientation Questions: a. What month is it? -: b. How old are you? -: 0=Answers both questions correctly. -: 1=Answers one question correctly or patient is intubated or has orotracheal trauma. -: 2=Answers neither question correctly. 1b. Responses: 1 1c. Response to commands: a. Open and close eyes? -: b. Director Of Music and release hand? -: Credit is given despite weakness. Demonstration of task is permitted. Substitute command if hands cannot be used. -: 0=Performs both tasks correctly -: 1=Performs one task correctly -: 2=Performs neither task correctly 1c. Responses: 0 2. Gaze: Establish eye contact and instruct patient to "Follow my finger" -: 0=Normal -: 1=Partial gaze palsy. Gaze is abnormal in one or both eyes, but where forced deviation or total gaze paresis is not present. -: 2=Forced deviation or total gaze paresis. 2. Responses: 0 3. Visual Finch: Sees fingers in all four quadrants. -: 0=No visual loss. -: 1=Partial hemianopsia. -: 2=Complete hemianopsia. -: 3=Bilateral hemianopsia (including Cortical blindness) 3. Responses: 0 4. Facial Movement: Instruct patient to: -: a. Show me your teeth -: b. Raise your eyebrows -: c. Close your eyes -: d. Smile -: 0=Normal symmetrical movement -: 1=Minor paralysis (flattened nasolabial fold, asymmetry on smiling). -: 2=Partial paralysis (total or near total paralysis of lower face). -: 3=Complete paralysis of upper and lower face 4. Responses: 0 5. Motor functions (left arm): Alternate sides and extend each arm with palms down (90 degrees if sitting or 45 degrees for supine). -: 0=No drift;limb holds for full 10 seconds. -: 1=Drift; limb holds but drifts down before full 10 seconds, but does not hit bed. -: 2=Some effort against gravity; limb cannot get to or maintain position. -: 3=No effort against gravity; limb falls. -: 4=No movement. -: UN=Amputation, joint fusion, explain in comments. 5. Responses (left arm): 4 5. Motor Functions (right arm): Alternate sides and extend each arm with palms down (90 degrees if sitting or 45 degrees for supine). -: 0=No drift;limb holds for full 10 seconds. -: 1=Drift; limb holds but drifts down before full 10 seconds, but does not hit bed. -: 2=Some effort against gravity; limb cannot get to or maintain position. -: 3=No effort against gravity; limb falls. -: 4=No movement. -: UN=Amputation, joint fusion, explain in comments. 5. Responses (right arm): 0 6. Motor Functions (left leg): With patient lying supine, alternate sides and extend each leg (30 degrees always while supine). -: 0=No drift, leg holds position for full 5 seconds -: 1=Drift; leg falls before full 5 seconds but does not hit bed. -: 2=Some effort against gravity, leg falls to bed but some effort against gravity. -: 3=No effort against gravity, leg falls to bed immediately. -: 4=No movement. -: UN=Amputation, joint fusion; explain in comments. 6. Responses (left leg): 4 6. Motor Functions (right leg): With patient lying supine, alternate sides and extend each leg (30 degrees always while supine). -: 0=No drift, leg holds position for full 5 seconds -: 1=Drift; leg falls before full 5 seconds but does not hit bed. -: 2=Some effort against gravity, leg falls to bed but some effort against gravity. -: 3=No effort against gravity, leg falls to bed immediately. -: 4=No movement. -: UN=Amputation, joint fusion; explain in comments. 6. Responses (right leg): 1 7. Limb Ataxia: With eyes open instruct patient to: -: a. "Touch your finger to your nose". -: b. "Touch your heel to your claros" -: 0=Absent -: 1=Present in one limb. -: 2=Present in two limbs. -: UN=Amputation or joint fusion; explain in comments. 7. Responses: 0 8. Sensory: Test sensation using pinprick or noxious stimuli. Test as many body parts as possible. -: 0=Normal;no sensory loss -: 1=Mile to moderate sensory loss (patient feels pin prick but is less sharp on affected side). -: 2=Severe or total sensory loss. 8. Responses: 0 9. Best Language: Instruct patient to: -: a. "Describe what you see in this picture." -: b. "Name the items in this picture." -: c. "Read these sentences." -: 0=No aphasia, normal -: 1=Mild to moderate aphasia. -: 2=Severe aphasia -: 3=Mute, global aphasia, no usable speech or auditory comprehension. 9. Responses: 0 10. Articulation, Dysarthia: Instruct patient to: -: "Read these words" or "Repeat these words" -: 0=Normal -: 1=Mild to moderate; patient may slur some words but can be understood without difficulty. -: 2=Severe; patients speech so slurred as to be unintelligible in the absence of dysphasia. -: UN=Intubated or other physical barrier, explain in comments. 10. Responses: 0 11. Extinction or inattention: 0=No abnormality -: 1= Visual, tactile, auditory, spatial, or personal inattention or extinction to bilateral simulation in one or the sensory modalities. -: 2=Profound isamar-inattention or isamar-inattention to more than one modality; does not recognize own hand. 11. Responses: 0 Total Score: 11
[2017-05-25] MEDS ORDERED: ACETAMINOPHEN 325 MG TABLET PO PRN (16:44)
[2017-05-25] MEDS ORDERED: ONDANSETRON HCL INJ/PF 4 MG/2 ML SDV IV PRN (16:44)
[2017-05-25] MEDS ORDERED: ALBUTEROL SULFATE HFA (90 MCG/PUFF) 8 GM MDI (1 MDI/ER DISP) IH PRN (16:51)
[2017-05-25] MEDS ORDERED: DEXTROSE 50%-WATER 25 GM/50 ML DISP.SYRIN IV PRN (16:53)
[2017-05-25] MEDS ORDERED: DEXTROSE 40% GEL 15 GM TUBE PO PRN ×2 (16:53)
[2017-05-25] MEDS ORDERED: GLUCAGON,HUMAN RECOMB 1 MG INJ IM PRN (16:53)
--- NOTE | 2017-05-25 18:17 | HISTORY AND PHYSICAL E ---
History and Physical NAME: VAISHALI GODOY : 1930 AGE: 87Y ADMITTED: 05/25/2017 ROOM: 330 CHIEF COMPLAINT: Weakness. HISTORY OF PRESENT ILLNESS: This is an 87-year-old female, a patient of Dr. Phillips with a history of end-stage renal disease on hemodialysis, type 2 diabetes mellitus, hypertension, and dementia, currently lives in a nursing facility, basically came to the emergency department with a complaint of some new onset of left-sided weakness. The patient was brought because of concern of a stroke. On initial workup, the patient was definitely with some left-sided weakness per ER physician. The ER physician discussed with the family about thrombolytic therapy and the patient is not a candidate, and the patient's family did not want to go for any aggressive management, and the patient was admitted in the hospital for further evaluation and treatment. The patient when I saw her on the floor, was alert and awake with a little bit of mumbling. Most likely the patient has baseline dementia but other than that denied any other complaints. PAST MEDICAL HISTORY: 1. History of end-stage renal disease on hemodialysis. 2. History of hypertension. 3. History of dementia. 4. History of congestive heart failure with a diastolic dysfunction. 5. History of coronary artery disease. 6. History of hypertension. 7. History of hyperlipidemia. 8. The patient has a history of recurrent urinary tract infections. 9. History of several hospital admissions with a history of respiratory failure. 10. History of chronic obstructive pulmonary disease 11. History of sleep apnea. 12. Type 2 diabetes mellitus. 13. History of generalized arthritis. 14. History of MRSA in the past. PAST SURGICAL HISTORY: 1. Cardiac catheterization with cardiac stent in 2010. 2. The patient has had back surgery. 3. The patient has a fistula to the right arm for dialysis. SOCIAL HISTORY: Currently lives in halfway facility. No smoking, no alcohol. FAMILY HISTORY: As above, other pertinents negative. CURRENT MEDICATIONS: 1. Tradjenta 5 mg daily. 2. Zofran p.r.n. 3. Tylenol p.r.n. 4. Celexa 20 mg daily. 5. Albuterol p.r.n. 6. Coreg 37.5 mg via PEG tube 1 drop daily. 7. Senna 1 tablet daily. 8. Sliding scale. 9. Aspirin 81 mg daily. 10. Prevacid 15 mg. 11. Zyrtec 10 mg daily. 12. Nephrocaps daily. REVIEW OF SYSTEMS: As above, all other pertinents are negative, very limited obtained from the patient. PHYSICAL EXAMINATION: VITAL SIGNS: Blood pressure was 149/64, temperature 98.1, pulse 60, respirations 24, 02 saturation is 94% on room air. GENERAL: The patient is alert, awake, underlying some dementia with some mumbling but no other acute distress. HEENT: Normocephalic. PERRLA. LUNGS: No wheezing, no rales. HEART: S1 and S2 are present. ABDOMEN: Soft. Bowel sounds hypoactive but intact. EXTREMITIES: No edema. NEUROLOGIC: The patient is very hard to examine the neuro at this point. BACK: There is a wound VAC present in the sacral wounds. LABORATORY DATA: WBC is 4.6, hemoglobin 10.5, platelets 182. Chemistries: Sodium is 128, potassium 4.3, BUN 33, creatinine 1.62. AST and ALT are normal; alkaline phosphatase is 187, troponin is 0.047. The patient's albumin is 2.5. The patient's EKG had no acute *------*. There are chronic changes but no other acute findings. ASSESSMENT: 1. Acute left-sided weakness, most likely cerebrovascular accident. 2. End-stage renal disease on hemodialysis. 3. Type 2 diabetes mellitus. 4. Hypertension. 5. Hyperlipidemia. 6. Dementia. 7. Recurrent urinary tract infections. 8. Osteoarthritis. 9. Stage II decubitus wounds and wound VAC. PLAN: At this point is to admit the patient in the [facility] for the stroke protocol with aspirin. Will consult nephrology for dialysis and see the other MD orders. The patient's ER physician discussed with the family. I did not see any family members and will try to contact and reach the family at this point and will find out and discuss the code status. At this point we will order MRI/MRA and also will order the carotid Doppler. I hope the patient continues to be improved. More than 45 minutes spent examining the patient and reviewing the records. DICTATING PHYSICIAN: GOMEZ DHALIWAL M.D. [id number] Anu#: [id number] ID: [id number] JOB#: [id number] ACCT: [id number] cc:ALONDRA PHILLIPS M.D., SWETANG M.D. >
[2017-05-25] MEDS: HEPARIN SOD (PORCINE) 5,000 UNIT/ML 1 ML SYRINGE SUBCUT SCH (22:46)
[2017-05-25] MEDS: CARVEDILOL 12.5 MG TABLET PEG SCH (22:46)
[2017-05-25] MEDS ORDERED: TIMOLOL MALEATE 0.5% OPH SOLN 5 ML ONE (23:02)
[2017-05-25] MEDS ORDERED: FLUTICASONE NASAL SPRAY 50 MCG/SPRY 120 SPRAY/16 GM ONE (23:02)
[2017-05-25] MEDS: FLUTICASONE NASAL SPRAY 50 MCG/SPRY 120 SPRAY/16 GM NAREB SCH (23:05)
[2017-05-25] MEDS: TIMOLOL MALEATE 0.5% OPH SOLN 5 ML OU SCH (23:05)
--- NOTE | 2017-05-25 23:08 | EKG REPORT ---
SEVERITY:- ABNORMAL ECG - SINUS RHYTHM RIGHT BUNDLE BRANCH BLOCK : Confirmed by: Laurence Chin 25-May-2017 23:06:43
[2017-05-26] MEDS ORDERED: NORMAL SALINE 1000 ML 1,000 ML IV PRN (00:16)
[2017-05-26 01:07] LABS: PROTHROMBIN TIME 10.3 SEC (11.4-15.4)
[2017-05-26] MEDS: HEPARIN SOD (PORCINE) 5,000 UNIT/ML 1 ML SYRINGE SUBCUT SCH ×3 (06:47→22:59)
[2017-05-26] MEDS ORDERED: ALBUTEROL SULFATE HFA (90 MCG/PUFF) 200 PUFF/8.5 GM MDI IH PRN (07:43)
[2017-05-26] MEDS ORDERED: ACETAMINOPHEN SOLN 325 MG/10.15 ML UDCUP PEG PRN (08:13)
[2017-05-26] MEDS ORDERED: ONDANSETRON HCL INJ/PF 4 MG/2 ML SDV IV PRN (08:13)
[2017-05-26 08:44] LABS: HEMATOCRIT 31.2 % (36.0-47.0); HEMOGLOBIN 10.2 g/dL (12.0-15.5); HGB HCT DIFFERENCE -0.6; MEAN CORPUSCULAR HEMOGLOBIN 27.4 pg (27.0-33.4); MEAN CORPUSCULAR HGB CONC 32.8 g/dL (32.0-36.0); MEAN CORPUSCULAR VOLUME 84 fl (80-97); RED BLOOD COUNT 3.74 10^6/uL (3.72-5.28); RED CELL DISTRIBUTION WIDTH 19.4 % (11.5-14.0)
[2017-05-26 09:01] LABS: ALANINE AMINOTRANSFERASE 40 U/L (9-52); ALBUMIN 2.6 g/dL (3.5-5.0); ALKALINE PHOSPHATASE 243 U/L (38-126); ANION GAP 7 (5-19); ASPARTATE AMINO TRANSFERASE 34 U/L (14-36); BILIRUBIN,DIRECT 0.5 mg/dL (0.0-0.4); BILIRUBIN,TOTAL 0.5 mg/dL (0.2-1.3); BLOOD UREA NITROGEN 40 mg/dL (7-20); CALCIUM 8.9 mg/dL (8.4-10.2); CARBON DIOXIDE 28 mmol/L (22-30); CHLORIDE 92 mmol/L (98-107); CHOLESTEROL 96.76 mg/dL (0-200); CREATININE RESULT 1.85 mg/dL (0.52-1.25); Direct HDL 40 mg/dL (>40); GLUCOSE 120 mg/dL (75-110); POTASSIUM 3.9 mmol/L (3.6-5.0); SODIUM 126.7 mmol/L (137-145); TRIGLYCERIDES 62 mg/dL (<150)
[2017-05-26 09:14] LABS: DIRECT LDL < 30 mg/dL (<100)
[2017-05-26] MEDS ORDERED: (PENDING PHARMACY ID) (Linagliptin [Tradjenta] 5 MG) PEG SCH (10:00)
[2017-05-26] MEDS ORDERED: ASPIRIN 325 MG TABLET, ENT COATED PO SCH (10:00)
[2017-05-26] MEDS: LANSOPRAZOLE 15 MG TAB.RAP.DR PEG SCH (10:19)
[2017-05-26] MEDS: CARVEDILOL 12.5 MG TABLET PEG SCH ×2 (10:19→22:58)
[2017-05-26] MEDS: CITALOPRAM HYDROBROMIDE 20 MG TABLET PEG SCH (10:19)
[2017-05-26] MEDS: CETIRIZINE HCL ORAL SOLN 5 MG/5 ML UDCUP PEG SCH (10:19)
[2017-05-26] MEDS: FLUTICASONE NASAL SPRAY 50 MCG/SPRY 120 SPRAY/16 GM NAREB SCH ×2 (10:20→22:59)
[2017-05-26] MEDS: ASPIRIN 325 MG TABLET PEG SCH (10:20)
[2017-05-26] MEDS: TIMOLOL MALEATE 0.5% OPH SOLN 5 ML OU SCH ×2 (10:20→22:59)
[2017-05-26] MEDS: FOLIC ACID/VITAMIN B COMP W-C CAPSULE PEG SCH (10:20)
[2017-05-26] MEDS: SITAGLIPTIN PHOSPHATE 25 MG TABLET PEG SCH (10:20)
[2017-05-26] MEDS: SENNOSIDES/DOCUSATE 8.6-50 MG 1 EACH TABLET PEG SCH (10:21)
[2017-05-26 10:45] LABS: APPEARANCE,URINE TURBID; BILIRUBIN,URINE NEGATIVE (NEGATIVE); GLUCOSE, URINE NEGATIVE (NEGATIVE); KETONES,URINE TRACE mg/dL (NEGATIVE); LEUKOCYTE ESTERASE,URINE MODERATE (NEGATIVE); NITRITE,URINE NEGATIVE (NEGATIVE); PROTEIN,URINE 100 mg/dL (NEGATIVE); URINE SPECIFIC GRAVITY 1.014; UROBILINOGEN,URINE NEGATIVE mg/dL (<2.0)
--- NOTE | 2017-05-26 11:43 | PDOC CONSULTATION ---
Consultation Consult Date: 05/26/17 Consult reason:: Seen at the request of Dr. Phillips History of Present Illness Admission Date/PCP: 05/25/17 16:44 ALONDRA PHILLIPS MD Patient complains of: Patient unable to communicate complaint History of Present Illness: VAISHALI GODOY is a 87 year old female Please see HPI. Patient came from [facility] with wound VAC on sacrum. Surgery was consulted for management. Past Medical History Cardiac Medical History: Reports: Congestive Heart Failure, Coronary Artery Disease, Hyperlipidema, Hypertension Denies: Atrial Fibrillation, Myocardial Infarction, Pulmonary Embolism Pulmonary Medical History: Reports: Asthma, Bronchitis - hx of, Chronic Obstructive Pulmonary Disease (COPD), Pneumonia - hx of, Sleep Apnea Denies: Respiratory Failure, Tuberculosis Neurological Medical History: Denies: Seizures Endocrine Medical History: Reports: Diabetes Mellitus Type 2 Denies: Diabetes Mellitus Type 1 Renal/ Medical History: Reports: End Stage Renal Disease Malignancy Medical History: Denies: Lung Cancer GI Medical History: Denies: Gastroesophageal Reflux Disease, Hiatal Hernia Musculoskeltal Medical History: Reports: 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 Denies: Fibromyalgia Psychiatric Medical History: Reports: Dementia Denies: Depression Hematology: Reports: Anemia Infectious Medical History: Reports: Methicillin-Resistant Staph Aureus Past Surgical History Past Surgical History: Reports: Cardiac Catheterization - cardiac stent 2010, Coronary Stent, Orthopedic Surgery - Back surgery, Vascular Surgery - Fistula to the R arm for dialysis Denies: Amputation, Hysterectomy, Pacemaker Social History Smoking Status: Never Smoker Frequency of Alcohol Use: None Hx Recreational Drug Use: No Drugs: None Hx Prescription Drug Abuse: No Family History Family History: None, Other - Unable to obtain due to dementia Parental Family History Reviewed: No Children Family History Reviewed: NA Sibling(s) Family History Reviewed.: NA Medication/Allergy Home Medications: Albuterol Sulfate [Ventolin Hfa] 2 puff IH Q4HP PRN 11/18/16 Aspirin [Aspirin 81 mg Chewable Tablet] 81 mg PEG DAILY 11/18/16 Carvedilol [Coreg 12.5 mg Tablet] 37.5 mg PEG Q12 11/18/16 Citalopram Hydrobromide [Celexa 20 mg Tablet] 20 mg PEG DAILY 11/18/16 Fluticasone Propionate [Flonase Nasal Pike 50 Mcg/Pike 16 gm] 1 spray NAREB Q12 11/18/16 Omeprazole 20 mg PEG DAILY 11/18/16 Timolol Maleate 1 drop OU Q12 11/18/16 Acetaminophen [Tylenol 325 mg Tablet] 650 mg PEG Q6HP PRN 05/25/17 Acetaminophen [Tylenol 325 mg Tablet] 650 mg PEG TUTHSA 05/25/17 B Complex & C No.20/Folic Acid [Nephrocaps Softgel] 1 cap PEG DAILY 05/25/17 Cetirizine HCl [Zyrtec] 10 mg PEG DAILY 05/25/17 Insulin Lispro [Humalog] See Protocol SQ ACHS 05/25/17 Linagliptin [Tradjenta] 5 mg PEG DAILY 05/25/17 Ondansetron HCl [Zofran 4 mg/5 ml Oral Soln] 5 ml PEG QHS 05/25/17 Sennosides/Docusate Sodium [Senna-S Tablet] 1 tab PEG DAILY 05/25/17 Allergies/Adverse Reactions: ciprofloxacin [Ciprofloxacin] Allergy (Severe, Verified 05/25/17 13:58) rash sulfamethoxazole [Sulfamethoxazole] Allergy (Unknown, Verified 05/25/17 13:58) rash Review of Systems ROS unobtainable: Due to mental status Physical Exam Vital Signs: Temp Pulse Resp BP Pulse Ox 97.7 F 68 18 123/49 L 96 05/26/17 07:06 05/26/17 07:06 05/26/17 07:06 05/26/17 07:06 05/26/17 07:06 Intake & Output 05/25/17 05/26/17 05/27/17 06:59 06:59 06:59 Intake Total 1040 Output Total 0 Balance 1040 Weight 80 kg General appearance: PRESENT: mild distress - Patient groans and mumbles to questions Torso Front/Back Image: 1 - Stage IV sacral decubitus revealed after wound VAC removed. This is a chronic granulating wound with nice epithelial margin ablation tissue centrally ; nothing significant to debride. Results Laboratory Results: 05/26/17 08:31 05/26/17 08:31 05/26/17 05/26/17 05/26/17 08:31 08:31 10:05 WBC 7.0 RBC 3.74 Hgb 10.2 L Hct 31.2 L MCV 84 MCH 27.4 MCHC 32.8 RDW 19.4 H Plt Count 160 Sodium 126.7 L Potassium 3.9 Chloride 92 L Carbon Dioxide 28 Anion Gap 7 BUN 40 H Creatinine 1.85 H Est GFR ( Amer) 31 L Est GFR (Non-Af Amer) 26 L Glucose 120 H Calcium 8.9 Total Bilirubin 0.5 AST 34 ALT 40 Alkaline Phosphatase 243 H Total Protein 7.0 Albumin 2.6 L Triglycerides 62 Cholesterol 96.76 LDL Cholesterol Direct < 30 VLDL Cholesterol 12.0 HDL Cholesterol 40 Urine Color YELLOW Urine Appearance TURBID Urine pH 5.0 Ur Specific [place] 1.014 Urine Protein 100 H Urine Glucose (UA) NEGATIVE Urine Ketones TRACE H Urine Blood MODERATE H Urine Nitrite NEGATIVE Ur Leukocyte Esterase MODERATE H Urine WBC (Auto) >182 Urine RBC (Auto) >182 Impressions: Chest X-Ray 05/25/17 12:39 IMPRESSION: Increasing basilar densities as noted above. Head CT 05/25/17 12:39 IMPRESSION: Somewhat limited study as noted above. CHRONIC CHANGES OF ATROPHY AND MICROVASCULAR ISCHEMIA. NO ACUTE PROCESS. Assessment & Plan - Diagnosis (1) Sacral decubitus ulcer, stage III Is this a current diagnosis for this admission?: YesPlan: Chronic stage IV now down to stage III sacral decubitus previously managed with wound VAC therapy, sufficiently shallow with granulation tissue suitable for transition to a single Plan: Will discontinue VAC, switch patient over to Allevyn dressing. Also suggest initiating pressure offloading.
--- NOTE | 2017-05-26 13:01 | PDOC PROGRESS REPORT ---
Subjective Progress Note for:: 05/26/17 Subjective:: Patient is currently doing fair. No other events happen. Patient still feeling of weakness in the left upper extremity Physical Exam Vital Signs: Temp Pulse Resp BP Pulse Ox 97.9 F 60 18 101/40 L 97 05/26/17 11:38 05/26/17 11:38 05/26/17 11:38 05/26/17 11:38 05/26/17 11:38 Intake & Output 05/25/17 05/26/17 05/27/17 06:59 06:59 06:59 Intake Total 1040 0 Output Total 0 100 Balance 1040 -100 Weight 80 kg General appearance: PRESENT: no acute distress, well-developed, well-nourished Head exam: PRESENT: atraumatic, normocephalic Eye exam: PRESENT: conjunctiva pink, EOMI, PERRLA. ABSENT: scleral icterus Ear exam: PRESENT: normal external ear exam Mouth exam: PRESENT: moist, tongue midline Neck exam: PRESENT: full ROM. ABSENT: carotid bruit, JVD, lymphadenopathy, thyromegaly Respiratory exam: PRESENT: clear to auscultation kennedi Cardiovascular exam: PRESENT: RRR. ABSENT: diastolic murmur, rubs, systolic murmur Pulses: PRESENT: normal dorsalis pedis pul, +2 pedal pulses bilateral Vascular exam: PRESENT: normal capillary refill GI/Abdominal exam: PRESENT: normal bowel sounds, soft. ABSENT: distended, guarding, mass, organolmegaly, rebound, tenderness Rectal exam: PRESENT: deferred Extremities exam: ABSENT: pedal edema Neurological exam: PRESENT: alert, awake. ABSENT: motor sensory deficit Psychiatric exam: PRESENT: appropriate affect, normal mood. ABSENT: homicidal ideation, suicidal ideation Skin exam: PRESENT: dry, intact, warm, other. ABSENT: cyanosis, rash Additional comments: There is a stage IV decubitus ulcers Results Laboratory Results: 05/26/17 08:31 05/26/17 08:31 05/26/17 05/26/17 05/26/17 08:31 08:31 10:05 WBC 7.0 RBC 3.74 Hgb 10.2 L Hct 31.2 L MCV 84 MCH 27.4 MCHC 32.8 RDW 19.4 H Plt Count 160 Sodium 126.7 L Potassium 3.9 Chloride 92 L Carbon Dioxide 28 Anion Gap 7 BUN 40 H Creatinine 1.85 H Est GFR ( Amer) 31 L Est GFR (Non-Af Amer) 26 L Glucose 120 H Calcium 8.9 Total Bilirubin 0.5 AST 34 ALT 40 Alkaline Phosphatase 243 H Total Protein 7.0 Albumin 2.6 L Triglycerides 62 Cholesterol 96.76 LDL Cholesterol Direct < 30 VLDL Cholesterol 12.0 HDL Cholesterol 40 Urine Color YELLOW Urine Appearance TURBID Urine pH 5.0 Ur Specific [place] 1.014 Urine Protein 100 H Urine Glucose (UA) NEGATIVE Urine Ketones TRACE H Urine Blood MODERATE H Urine Nitrite NEGATIVE Ur Leukocyte Esterase MODERATE H Urine WBC (Auto) >182 Urine RBC (Auto) >182 Impressions: Chest X-Ray 05/25/17 12:39 IMPRESSION: Increasing basilar densities as noted above. Head CT 05/25/17 12:39 IMPRESSION: Somewhat limited study as noted above. CHRONIC CHANGES OF ATROPHY AND MICROVASCULAR ISCHEMIA. NO ACUTE PROCESS. Assessment & Plan - Diagnosis (1) CVA (cerebral vascular accident) Qualifiers: CVA mechanism: unspecified Qualified Code(s): I63.9 - Cerebral infarction, unspecified Is this a current diagnosis for this admission?: YesPlan: We will schedule the MRI and MRA of the head continues to aspirin and continues to CVA protocol (2) End-stage renal disease on hemodialysis Is this a current diagnosis for this admission?: YesPlan: Scheduled for the dialysis per the nephrology (3) Left-sided weakness Is this a current diagnosis for this admission?: YesPlan: Due to the acute CVA will continues to physical therapy (4) Adult failure to thrive Is this a current diagnosis for this admission?: YesPlan: Status post PEG tube (5) Hypertension Qualifiers: Hypertension type: essential hypertension Qualified Code(s): I10 - Essential (primary) hypertension Is this a current diagnosis for this admission?: YesPlan: Continues current medication (6) Sacral decubitus ulcer, stage III Is this a current diagnosis for this admission?: YesPlan: We consulted general surgery for further evaluate about the wound (7) Dementia Qualifiers: Dementia type: unspecified type Is this a current diagnosis for this admission?: YesPlan: Continues current medication - Time Time Spent with patient: 15-24 minutes Medications reviewed and adjusted accordingly: Yes Anticipated discharge: SNF Within: Other - Inpatient Certification Medical Necessity: Need Close Monitoring Due to Risk of Patient Decompensation Post Hospital Care: D/C Sorting Supervisor Documentation - Plan Summary Plan Summary: See other MD orders
--- NOTE | 2017-05-26 16:10 | RADIOLOGY REPORT (SQ) ---
EXAM DESCRIPTION: CAROTID DOPPLER COMPLETED DATE/TIME: 05/26/2017 3:21 pm REASON FOR STUDY: [place] COMPARISON: None. TECHNIQUE: Grayscale ultrasound, Doppler velocity and spectra, and color Doppler images acquired of the extra-cranial carotid and vertebral arteries. Images stored on PACS. LIMITATIONS: Body habitus. FINDINGS: RIGHT CAROTID CCA Velocities: Within normal limits. ICA Velocities Peak systolic 0.85 m/s. End diastolic 0.8 m/s. Proximal ICA/CCA peak systolic ratio 1.0. Heterogeneous plaque in the bulb. LEFT CAROTID CCA Velocities: Within normal limits. ICA Velocities Peak systolic 0.96 m/s. End diastolic 0.13 m/s. Proximal ICA/CCA peak systolic ratio 1.3. Heterogeneous plaque in the bulb. VERTEBRAL ARTERIES: Antegrade flow. Normal waveforms. SUBCLAVIAN ARTERIES: Not imaged. OTHER: No other significant finding. IMPRESSION: NO HEMODYNAMICALLY SIGNIFICANT STENOSIS. COMMENT: Quality ID #[id number]: Velocity criteria are extrapolated from the diameter data as defined by t he Society of Radiologists in Ultrasound Consensus Conference. Radiology 2003: 229; 340-346. TECHNICAL DOCUMENTATION: JOB ID: [id number] [employer] All Rights Reserved
--- NOTE | 2017-05-26 18:05 | PDOC CONSULTATION ---
Consultation Consult Date: 05/26/17 Attending physician:: ALONDRA PHILLIPS Consult reason:: I was asked by Dr. Phillips to Dr. Thrasher to see the patient for supervision of dialysis. History of Present Illness Admission Date/PCP: 05/25/17 16:44 ALONDRA PHILLIPS MD History of Present Illness: VAISHALI GODOY is a 87 year old female known to me with history of end-stage renal disease on hemodialysis 3 times a week, coronary artery disease, hypertension, recent mellitus type II, and adult failure to thrive on PEG tube feeding and dementia who presented to the emergency room yesterday because of concerns of possible stroke. According to the notes there was a note of new left-sided weakness which is very difficult to assess at this time. Currently seeing the patient during initiation of hemodialysis. No further history can be obtained from the patient. Patient has severe dementia and even if she is in her usual state of mind no history can really be obtained. Currently she is very lethargic but arousable. Stroke workup is underway by primary service. Past Medical History Cardiac Medical History: Reports: Coronary Artery Disease, Hyperlipidemia, Hypertension-primary Pulmonary Medical History: Reports: Asthma, Bronchitis - hx of, Chronic Obstructive Pulmonary Disease (COPD), Pneumonia - hx of, Sleep Apnea Endocrine Medical History: Reports: Diabetes Mellitus Type 2 Renal/ Medical History: Reports: End Stage Renal Disease, Renal Osteodystropy , Secondary Hyperparathyroidism Musculoskeltal Medical History: Reports: Arthritis - generalized-in Psychiatric Medical History: Reports: Dementia Infectious Medical History: Reports: Methicillin-resist Staph Aureus Hematology Medical History: Reports Anemia of Chronic Kidney Disease Past Surgical History Past Surgical History: Reports: Cardiac Catheterization - cardiac stent 2010, Coronary Stent - In 2010, Dialysis Access Surgery AVF, Orthopedic Surgery - Back surgery, Vascular Surgery - Fistula to the R arm for dialysis Social History Information Source: [facility] Records Lives with: Intermediate Smoking Status: Never Smoker Frequency of Alcohol Use: None Hx Recreational Drug Use: No Drugs: None Hx Prescription Drug Abuse: No Family History Family History: Other - Unobtainable due to mental status Parental Family History Reviewed: No Children Family History Reviewed: No Sibling(s) Family History Reviewed.: No Medication/Allergy Home Medications: Albuterol Sulfate [Ventolin Hfa] 2 puff IH Q4HP PRN 11/18/16 Aspirin [Aspirin 81 mg Chewable Tablet] 81 mg PEG DAILY 11/18/16 Carvedilol [Coreg 12.5 mg Tablet] 37.5 mg PEG Q12 11/18/16 Citalopram Hydrobromide [Celexa 20 mg Tablet] 20 mg PEG DAILY 11/18/16 Fluticasone Propionate [Flonase Nasal [place] 50 Mcg/[place] 16 gm] 1 spray NAREB Q12 11/18/16 Omeprazole 20 mg PEG DAILY 11/18/16 Timolol Maleate 1 drop OU Q12 11/18/16 Acetaminophen [Tylenol 325 mg Tablet] 650 mg PEG Q6HP PRN 05/25/17 Acetaminophen [Tylenol 325 mg Tablet] 650 mg PEG TUTHSA 05/25/17 B Complex & C No.20/Folic Acid [Nephrocaps Softgel] 1 cap PEG DAILY 05/25/17 Cetirizine HCl [Zyrtec] 10 mg PEG DAILY 05/25/17 Insulin Lispro [Humalog] See Protocol SQ ACHS 05/25/17 Linagliptin [Tradjenta] 5 mg PEG DAILY 05/25/17 Ondansetron HCl [Zofran 4 mg/5 ml Oral Soln] 5 ml PEG QHS 05/25/17 Sennosides/Docusate Sodium [Senna-S Tablet] 1 tab PEG DAILY 05/25/17 Allergies/Adverse Reactions: ciprofloxacin [Ciprofloxacin] Allergy (Severe, Verified 05/25/17 13:58) rash sulfamethoxazole [Sulfamethoxazole] Allergy (Unknown, Verified 05/25/17 13:58) rash Review of Systems ROS unobtainable: Due to mental status Physical Exam Vital Signs: Temp Pulse Resp BP Pulse Ox 97.9 F 60 18 101/40 L 97 05/26/17 11:38 05/26/17 11:38 05/26/17 11:38 05/26/17 11:38 05/26/17 11:38 Intake & Output 05/25/17 05/26/17 05/27/17 06:59 06:59 06:59 Intake Total 1040 0 Output Total 0 100 Balance 1040 -100 Weight 80 kg 80 kg Vital signs during initiation of dialysis: Blood pressure 152/72, heart rate of 67, blood flow rate of 400 mL/min, dialysate flow rate of 600 mL/min. Exam: General appearance: no acute distress, cooperative, well-developed, well- nourished, she is very lethargic but arousable with painful stimuli or sternal rub uttering 1 syllable the time before going back to sleep Head exam: PRESENT: atraumatic, normocephalic Eye exam: PRESENT: Conjunctiva pale, EOMI, PERRLA. ABSENT: conjunctival injection, scleral icterus Mouth exam: PRESENT: moist, neck supple, shallow right nasolabial fold Neck exam: PRESENT: full ROM. ABSENT: carotid bruit, JVD, lymphadenopathy, thyromegaly Respiratory exam: PRESENT: Very diminished to auscultation bilaterally. ABSENT : rales, rhonchi, stridor, wheezes Cardiovascular exam: PRESENT: RRR, +S1, +S2. ABSENT: systolic murmur Pulses: PRESENT: normal radial pulses, normal dorsalis pedis pulses GI/Abdominal exam: PRESENT: normal bowel sounds, soft. ABSENT: guarding, mass, tenderness Rectal exam: deferred Extremities exam: PRESENT: Not much spontaneous movements observed at this time , she has almost generalized edema observed in her upper extremities and lower extremities. ABSENT: calf tenderness Musculoskeletal: PRESENT: full ROM. ABSENT: deformity Neurological exam: PRESENT: Lethargic, mild right shallow nasolabial fold. No spontaneous movements observed currently. ABSENT: motor sensory deficit Psychiatric exam: PRESENT: Cannot be assessed due to lethargy ABSENT: homicidal ideation, suicidal ideation Skin exam: PRESENT: intact, dry, warm. ABSENT: rash Results Laboratory Results: 05/26/17 08:31 05/26/17 08:31 05/26/17 05/26/17 05/26/17 08:31 08:31 10:05 WBC 7.0 RBC 3.74 Hgb 10.2 L Hct 31.2 L MCV 84 MCH 27.4 MCHC 32.8 RDW 19.4 H Plt Count 160 Sodium 126.7 L Potassium 3.9 Chloride 92 L Carbon Dioxide 28 Anion Gap 7 BUN 40 H Creatinine 1.85 H Est GFR ( Amer) 31 L Est GFR (Non-Af Amer) 26 L Glucose 120 H Calcium 8.9 Total Bilirubin 0.5 AST 34 ALT 40 Alkaline Phosphatase 243 H Total Protein 7.0 Albumin 2.6 L Triglycerides 62 Cholesterol 96.76 LDL Cholesterol Direct < 30 VLDL Cholesterol 12.0 HDL Cholesterol 40 Urine Color YELLOW Urine Appearance TURBID Urine pH 5.0 Ur Specific Gable 1.014 Urine Protein 100 H Urine Glucose (UA) NEGATIVE Urine Ketones TRACE H Urine Blood MODERATE H Urine Nitrite NEGATIVE Ur Leukocyte Esterase MODERATE H Urine WBC (Auto) >182 Urine RBC (Auto) >182 Impressions: Chest X-Ray 05/25/17 12:39 IMPRESSION: Increasing basilar densities as noted above. Head CT 05/25/17 12:39 IMPRESSION: Somewhat limited study as noted above. CHRONIC CHANGES OF ATROPHY AND MICROVASCULAR ISCHEMIA. NO ACUTE PROCESS. Carotid Doppler Study 05/26/17 00:00 IMPRESSION: NO HEMODYNAMICALLY SIGNIFICANT STENOSIS. Assessment & Plan - Diagnosis (1) End-stage renal disease on hemodialysis Is this a current diagnosis for this admission?: YesPlan: We will do dialysis today for 3 hours, using the patient's right upper arm AV fistula, with 3 potassium bath, blood flow rate of 400 mL per minute, dialysate flow rate of 600 mL per minute, ultrafiltration at least 3 L ultrafiltration as tolerated, no heparin and no Procrit during dialysis . Patient is clinically hypervolemic and fluid overloaded with findings of pulmonary congestion on chest x-ray so are going to try to get as much ultrafiltration this weekend. Creatinine appears to be low but I think this is due to dilution effect because of hyperkalemia. Continue hemodialysis support while here in the hospital. Patient is anuric. (2) Fluid overload Qualifiers: Hypervolemia type: unspecified Qualified Code(s): E87.70 - Fluid overload, unspecified Is this a current diagnosis for this admission?: Yes (3) Hyponatremia Is this a current diagnosis for this admission?: YesPlan: Likely due to fluid overload. We will do ultrafiltration today. (4) CVA (cerebral vascular accident) Qualifiers: CVA mechanism: unspecified Qualified Code(s): I63.9 - Cerebral infarction, unspecified Is this a current diagnosis for this admission?: YesPlan: Reported new onset of left-sided weakness. Defer to primary service (5) Left-sided weakness Is this a current diagnosis for this admission?: Yes (6) Anemia in chronic kidney disease Is this a current diagnosis for this admission?: YesPlan: Procrit only as needed during dialysis treatments. (7) Diabetes mellitus type 2 in obese Is this a current diagnosis for this admission?: Yes (8) Hypertension Qualifiers: Hypertension type: essential hypertension Qualified Code(s): I10 - Essential (primary) hypertension Is this a current diagnosis for this admission?: Yes (9) Adult failure to thrive Is this a current diagnosis for this admission?: YesPlan: On PEG tube feeding (10) Dementia Qualifiers: Dementia type: Alzheimer's disease Alzheimer's disease onset: unspecified onset Dementia behavioral disturbance: without behavioral disturbance Qualified Code(s): G30.9 - Alzheimer's disease, unspecified; F02.80 - Dementia in other diseases classified elsewhere without behavioral disturbance Is this a current diagnosis for this admission?: Yes (11) UTI (urinary tract infection) Qualifiers: Urinary tract infection type: site unspecified Hematuria presence: without hematuria Qualified Code(s): N39.0 - Urinary tract infection, site not specified Is this a current diagnosis for this admission?: YesPlan: Urinalysis was suspicious of UTI, urine culture pending. - Notes Notes: Thank you very much for this consultation. - Time Time Spent: 50 to 70 Minutes
--- NOTE | 2017-05-26 19:43 | XCELERA REPORT ---
[address] [address] Transthoracic Echocardiogram Report Name: VAISHALI GODOY Age: 87 yrs Gender: Female : 1930 Patient Status: Inpatient Patient Location: 3S\S\330\S\A Study Date: 05/26/2017 10:30 AM Procedure: A two-dimensional transthoracic echocardiogram with color flow and Doppler was performed. The study was technically difficult with many images being suboptimal in quality. Reason For Study: CVA History: CVA. Ordering Physician: GOMEZ DHALIWAL Performed By: Daniella Morfin Interpretation Summary There is no obvious cardiac source of embolus noted on this transthoracic echocardiogram. Follow-up with a YUNIER is suggested if cardiac source is still suspected. The left ventricle is normal in size. There is normal left ventricular wall thickness. LV EF is 65% Left ventricular systolic function is normal. Doppler measurements suggest normal left ventricular diastolic function There is no thrombus. The left atrial size is normal. There is no evidence of mitral valve prolapse. There is no mitral valve stenosis. There is a mild to moderate amount of mitral regurgitation There is no aortic valvular vegetation. There is no aortic valve stenosis There is no LVOT obstruction. There is aortic sclerosis without stenosis. There is a mild amount of aortic regurgitation There is a moderate amount of tricuspid regurgitation There is moderate to severe pulmonary hypertension by echo RVSP is 57 to 62 mm of Hg , with RA mean of 10 to 15. There is no pericardial effusion. MMode/2D Measurements \T\ Calculations RVDd: 4.4 cm LVIDd: 4.4 cm FS: 36.4 % Ao root diam: 2.5 cm IVSd: 0.97 cm LVIDs: 2.8 cm EDV(Teich): 87.8 ml Ao root area: 4.9 cm2 LVPWd: 1.0 cm ESV(Teich): 29.5 ml LA dimension: 3.5 cm EF(Teich): 66.4 % LVOT diam: 2.0 cm LVOT area: 3.0 cm2 Doppler Measurements \T\ Calculations MV E max jered: MV P1/2t max jered: Ao V2 max: AI max jered: 125.7 cm/sec 124.9 cm/sec 165.6 cm/sec 289.1 cm/sec MV A max jered: MV P1/2t: 50.9 msec Ao max PG: AI max P.3 cm/sec 11.0 mmHg 33.4 mmHg MV E/A: 1.4 MVA(P1/2t): 4.3 cm2 AI dec slope: MV dec slope: SOUMYA(V,D): 1.6 cm2 718.1 cm/sec2 87.6 cm/sec2 AI P1/2t: 966.5 msec LV V1 max PG: PA V2 max: PI end-d jered: TR max jered: 2.9 mmHg 83.9 cm/sec 124.9 cm/sec 342.1 cm/sec LV V1 max: PA max P.8 mmHg TR max P.9 cm/sec 46.8 mmHg Left Ventricle The left ventricle is normal in size. There is normal left ventricular wall thickness. LV EF is 65%. Left ventricular systolic function is normal. Doppler measurements suggest normal left ventricular diastolic function. The left ventricular wall motion is normal. There is no thrombus. Right Ventricle The right ventricle is not well visualized secondary to technical limitations. Atria Right atrium not well visualized secondary to technical limitations. The left atrial size is normal. Mitral Valve There is moderate mitral annular calcification. There is no evidence of mitral valve prolapse. There is no vegetation seen on the mitral valve. There is no mitral valve stenosis. There is a mild to moderate amount of mitral regurgitation. Aortic Valve There is no aortic valvular vegetation. There is no aortic valve stenosis. There is no LVOT obstruction. There is aortic sclerosis without stenosis. There is a mild amount of aortic regurgitation. Tricuspid Valve There is no tricuspid stenosis. There is a moderate amount of tricuspid regurgitation. There is moderate to severe pulmonary hypertension by echo. RVSP is 57 to 62 mm of Hg , with RA mean of 10 to 15. Pulmonic Valve There is no pulmonic valvular stenosis. There is a mild amount of pulmonic regurgitation. Great Vessels The aortic root is normal size. The inferior vena cava appeared normal and decreased < 50% with respiration (RAP 10-15 mmHg). Effusions There is no pericardial effusion. : GOMEZ DHALIWAL > Tarsha Irving
--- NOTE | 2017-05-26 22:48 | RADIOLOGY REPORT (SQ) ---
EXAM DESCRIPTION: MRI HEAD WITHOUT COMPLETED DATE/TIME: 05/26/2017 10:31 pm REASON FOR STUDY: stoke COMPARISON: Brain CT scan dated 05/25/2017 TECHNIQUE: Multiplanar imaging includes non-contrasted T1, T2, FLAIR, and diffusion with ADC map seq uences. Images stored on PACS. LIMITATIONS: Study is markedly limited due to motion artifact on all the sequences. FINDINGS: ANATOMY: No anomalies. Normal vascular flow voids. Pituitary fossa normal. CSF SPACES: Atrophy induced prominence of ventricles and CSF spaces. CEREBRUM: High signal intensity lesions scattered throughout the white matter on FLAIR imaging with d istribution suggesting micro-vascular ischemic changes. No evidence of hemorrhage, mass, or extraaxi al fluid collection. POSTERIOR FOSSA: No signal alteration. No hemorrhage. No edema, masses or mass effect. Internal neno tory canals, cerebello-pontine angles, mastoids normal. DIFFUSION IMAGING: Abnormal signal intensity is identified in the right parietal region consistent wi th an area of recent infarction. ORBITS: No masses. Globes normal. PARANASAL SINUSES: No fluid levels. Mucosa normal. OTHER: No other significant finding. IMPRESSION: Limited study as noted above. ATROPHY AND CHRONIC MICRO-VASCULAR ISCHEMIC CHANGES. Abn ormal signal intensity is identified in the right parietal region on the diffusion weighted images co nsistent with an area of recent infarction. Other findings as noted above EVIDENCE OF ACUTE STROKE: Yes TECHNICAL DOCUMENTATION: JOB ID: [id number] All Rights Reserved
[2017-05-27] MEDS: HEPARIN SOD (PORCINE) 5,000 UNIT/ML 1 ML SYRINGE SUBCUT SCH ×3 (05:19→22:18)
[2017-05-27 06:04] LABS: HEMATOCRIT 31.3 % (36.0-47.0); HEMOGLOBIN 10.2 g/dL (12.0-15.5); HGB HCT DIFFERENCE -0.7; MEAN CORPUSCULAR HEMOGLOBIN 27.2 pg (27.0-33.4); MEAN CORPUSCULAR HGB CONC 32.6 g/dL (32.0-36.0); MEAN CORPUSCULAR VOLUME 84 fl (80-97); RED BLOOD COUNT 3.74 10^6/uL (3.72-5.28); RED CELL DISTRIBUTION WIDTH 19.7 % (11.5-14.0); WHITE BLOOD COUNT 4.5 10^3/uL (4.0-10.5)
[2017-05-27 06:15] LABS: ALANINE AMINOTRANSFERASE 37 U/L (9-52); ALBUMIN 2.7 g/dL (3.5-5.0); ALKALINE PHOSPHATASE 174 U/L (38-126); ASPARTATE AMINO TRANSFERASE 29 U/L (14-36); BILIRUBIN,DIRECT 0.5 mg/dL (0.0-0.4); BILIRUBIN,TOTAL 0.5 mg/dL (0.2-1.3); BLOOD UREA NITROGEN 23 mg/dL (7-20); CARBON DIOXIDE 32 mmol/L (22-30); CHLORIDE 96 mmol/L (98-107); CREATININE RESULT 1.58 mg/dL (0.52-1.25); GLUCOSE 100 mg/dL (75-110); POTASSIUM 3.4 mmol/L (3.6-5.0); TOTAL PROTEIN 7.2 g/dL (6.3-8.2)
[2017-05-27 06:27] LABS: ANION GAP 5 (5-19); SODIUM 132.9 mmol/L (137-145)
[2017-05-27] MEDS: LANSOPRAZOLE 15 MG TAB.RAP.DR PEG SCH (11:50)
[2017-05-27] MEDS: FOLIC ACID/VITAMIN B COMP W-C CAPSULE PEG SCH (11:51)
[2017-05-27] MEDS: CARVEDILOL 12.5 MG TABLET PEG SCH ×2 (11:52→22:18)
[2017-05-27] MEDS: SENNOSIDES/DOCUSATE 8.6-50 MG 1 EACH TABLET PEG SCH (11:54)
[2017-05-27] MEDS: CITALOPRAM HYDROBROMIDE 20 MG TABLET PEG SCH (11:54)
[2017-05-27] MEDS: SITAGLIPTIN PHOSPHATE 25 MG TABLET PEG SCH (11:55)
[2017-05-27] MEDS: CETIRIZINE HCL ORAL SOLN 5 MG/5 ML UDCUP PEG SCH (11:55)
[2017-05-27] MEDS: TIMOLOL MALEATE 0.5% OPH SOLN 5 ML OU SCH ×2 (11:55→22:18)
[2017-05-27] MEDS: ASPIRIN 325 MG TABLET PEG SCH (11:55)
[2017-05-27] MEDS: FLUTICASONE NASAL SPRAY 50 MCG/SPRY 120 SPRAY/16 GM NAREB SCH ×2 (11:56→22:18)
--- NOTE | 2017-05-27 12:07 | PDOC PROGRESS REPORT ---
Subjective Progress Note for:: 05/27/17 Subjective:: Patient is currently doing same. Patient MRI is a consistence with a right- sided stroke with left-sided weakness.Patient seen by the nephrology underwent for the hemodialysis Also seen by the general surgery the sacral wound and no need for further interventions Physical Exam Vital Signs: Temp Pulse Resp BP Pulse Ox 97.4 F 65 18 127/52 H 92 05/27/17 07:40 05/27/17 07:40 05/27/17 07:40 05/27/17 07:40 05/27/17 07:40 Intake & Output 05/26/17 05/27/17 05/28/17 06:59 06:59 06:59 Intake Total 1040 1710 Output Total 0 3800 Balance 1040 -2090 Weight 80 kg 76.6 kg General appearance: PRESENT: no acute distress Eye exam: PRESENT: PERRLA Mouth exam: PRESENT: neck supple Respiratory exam: PRESENT: clear to auscultation kennedi Cardiovascular exam: PRESENT: +S1, +S2 GI/Abdominal exam: PRESENT: normal bowel sounds, soft Extremities exam: ABSENT: pedal edema Neurological exam: PRESENT: alert, awake, oriented to person, other Additional comments: Left upper extremity weakness is present Psychiatric exam: PRESENT: anxious Results Laboratory Results: 05/27/17 05:33 05/27/17 05:33 05/27/17 05/27/17 05:33 05:33 WBC 4.5 RBC 3.74 Hgb 10.2 L Hct 31.3 L MCV 84 MCH 27.2 MCHC 32.6 RDW 19.7 H Plt Count 166 Sodium 132.9 L Potassium 3.4 L Chloride 96 L Carbon Dioxide 32 H Anion Gap 5 BUN 23 H Creatinine 1.58 H Est GFR ( Amer) 37 L Est GFR (Non-Af Amer) 31 L Glucose 100 Calcium 9.0 Total Bilirubin 0.5 AST 29 ALT 37 Alkaline Phosphatase 174 H Total Protein 7.2 Albumin 2.7 L Impressions: Chest X-Ray 05/25/17 12:39 IMPRESSION: Increasing basilar densities as noted above. Head CT 05/25/17 12:39 IMPRESSION: Somewhat limited study as noted above. CHRONIC CHANGES OF ATROPHY AND MICROVASCULAR ISCHEMIA. NO ACUTE PROCESS. Carotid Doppler Study 05/26/17 00:00 IMPRESSION: NO HEMODYNAMICALLY SIGNIFICANT STENOSIS. Head MRI 05/26/17 00:00 IMPRESSION: Limited study as noted above. ATROPHY AND CHRONIC MICRO-VASCULAR ISCHEMIC CHANGES. Abnormal signal intensity is identified in the right parietal region on the diffusion weighted images consistent with an area of recent infarction. Other findings as noted above EVIDENCE OF ACUTE STROKE: Yes Assessment & Plan - Diagnosis (1) CVA (cerebral vascular accident) Qualifiers: CVA mechanism: unspecified Qualified Code(s): I63.9 - Cerebral infarction, unspecified Is this a current diagnosis for this admission?: YesPlan: We will schedule the MRI and MRA of the head continues to aspirin and continues to CVA protocol (2) End-stage renal disease on hemodialysis Is this a current diagnosis for this admission?: YesPlan: Scheduled for the dialysis per the nephrology (3) Left-sided weakness Is this a current diagnosis for this admission?: YesPlan: Due to the acute CVA will continues to physical therapy (4) Adult failure to thrive Is this a current diagnosis for this admission?: YesPlan: Status post PEG tube (5) Hypertension Qualifiers: Hypertension type: essential hypertension Qualified Code(s): I10 - Essential (primary) hypertension Is this a current diagnosis for this admission?: YesPlan: Continues current medication (6) Sacral decubitus ulcer, stage III Is this a current diagnosis for this admission?: YesPlan: We consulted general surgery for further evaluate about the wound (7) Dementia Qualifiers: Dementia type: unspecified type Is this a current diagnosis for this admission?: Yes - Time Time Spent with patient: 15-24 minutes Medications reviewed and adjusted accordingly: Yes Anticipated discharge: SNF - Inpatient Certification Medical Necessity: Need Close Monitoring Due to Risk of Patient Decompensation Post Hospital Care: D/C [employer] Documentation - Plan Summary Plan Summary: We will get the physical therapy evaluations continues to full dose of aspirin continues to current medications and hopefully [facility] if remains stable
[2017-05-27] MEDS: INSULIN LISPRO 100 UNIT/ML 3 ML VIAL SUBCUT PRN ×2 (13:41→17:04)
[2017-05-27] MEDS ORDERED: POTASSI CL 20 MEQ/50 ML RIDER 50 ML IV ONE (15:11)
[2017-05-27] MEDS ORDERED: FUROSEMIDE INJ/PF 20 MG/2 ML SDV ONE (15:41)
[2017-05-27 16:11] LABS: ARTERIAL BLOOD BASE EXCESS 4.8 mmol/L; ARTERIAL BLOOD O2 SATURATION 82.5 % (94-98)
[2017-05-27 16:27] LABS: HEMATOCRIT 31.8 % (36.0-47.0); HEMOGLOBIN 10.2 g/dL (12.0-15.5); HGB HCT DIFFERENCE -1.2; MEAN CORPUSCULAR HEMOGLOBIN 27.5 pg (27.0-33.4); MEAN CORPUSCULAR HGB CONC 32.2 g/dL (32.0-36.0); MEAN CORPUSCULAR VOLUME 85 fl (80-97); RED BLOOD COUNT 3.72 10^6/uL (3.72-5.28); RED CELL DISTRIBUTION WIDTH 19.6 % (11.5-14.0); WHITE BLOOD COUNT 6.4 10^3/uL (4.0-10.5)
[2017-05-27 16:40] LABS: ANION GAP 6 (5-19); BLOOD UREA NITROGEN 29 mg/dL (7-20); CALCIUM 9.1 mg/dL (8.4-10.2); CARBON DIOXIDE 30 mmol/L (22-30); CHLORIDE 95 mmol/L (98-107); CREATININE RESULT 1.72 mg/dL (0.52-1.25); GLUCOSE 176 mg/dL (75-110); POTASSIUM 3.8 mmol/L (3.6-5.0); SODIUM 130.9 mmol/L (137-145)
[2017-05-27] MEDS ORDERED: FUROSEMIDE INJ/PF 40 MG/4 ML SDV ONE (16:53)
--- NOTE | 2017-05-27 16:56 | RADIOLOGY REPORT (SQ) ---
EXAM DESCRIPTION: CHEST SINGLE VIEW COMPLETED DATE/TIME: 05/27/2017 4:37 pm REASON FOR STUDY: change in mental status COMPARISON: Chest films 02/15/2017, 05/10/2017, 05/25/2017 EXAM PARAMETERS: NUMBER OF VIEWS: One view. TECHNIQUE: Single frontal radiographic view of the chest acquired. RADIATION DOSE: NA LIMITATIONS: None. FINDINGS: LUNGS AND PLEURA: There is now complete opacification of the left hemithorax, due to diffu se left lung collapse and consolidation with probable left pleural effusion. Opacified right lower hemithorax likely due to middle and lower lobe collapse and consolidation. Rig ht pleural effusion could not be excluded. No pneumothorax MEDIASTINUM AND HILAR STRUCTURES: No masses. Contour normal. HEART AND VASCULAR STRUCTURES: Heart size difficult to evaluate due to lung consolidation BONES: No acute findings. HARDWARE: G-tube left upper quadrant OTHER: These results were communicated to Dr. Thrasher, 05/27/2017 1645 hours IMPRESSION: Increasing consolidation left lung now with complete opacification of the left hemithora x, new compared to 05/25/2017. Increased opacification right lower hemithorax compared to 05/25/2017. TECHNICAL DOCUMENTATION: JOB ID: [id number]
[2017-05-27] MEDS ORDERED: CEFEPIME 1 GM/D5W RTU 1 GM/50 ML RTUPB IV SCH (18:00)
--- NOTE | 2017-05-27 18:42 | PROGRESS NOTE E ---
The nurses called that the patient is not responding very well and patient is having more difficulty in breathing. The 02 sats are down to 80%. The patient was put on a nonrebreather and the patient's pCO2 level was high with the initial ABG reports. When I saw the patient on the floor, the patient was not responding. Earlier the patient was more alert and awake. The patient is currently on a nonrebreather, currently not in distress, but the patient still does not respond compared to this morning. Again, we ordered the ABG, chest x-ray and a CT of the head. The patient's pH was 7.12, pCO2 was 118 and pO2 was 64.4 with 100% FiO2. At this point, very extensive discussions with the daughter regarding the patient's critical condition, still maintained the DNR/DNI and did not want to put any ventilation support. I discussed with the daughter that patient might have another stroke versus pneumonia or with this respiratory distress with the fluid overload, and the patient may not be able to make it tonight and understood very well. She still wants to continues the mother for DNR/DNI status. The patient is examined and coordinated care with the patient's family, the daughter, and the nursing home director on the floor on [address] Alonzo, and more than 40 minutes spent examining the patient with coordination of care. DICTATING PHYSICIAN: GOMEZ DHALIWAL M.D. [id number] DT: 0000 PHY#: [id number] ID: [id number] JOB#: [id number] ACCT: [id number] cc: >
[2017-05-27] MEDS: CEFEPIME HCL 1 GM in DEXTROSE 5%-WATER 50 ML IV SCH (20:10)
[2017-05-27 23:36] LABS: ARTERIAL BLOOD BASE EXCESS 5.6 mmol/L; ARTERIAL BLOOD O2 SATURATION 85.3 % (94-98)
[2017-05-28] MEDS: DEXTROSE 50%-WATER 25 GM/50 ML DISP.SYRIN IV PRN ×2 (00:44→23:58)
[2017-05-28] MEDS ORDERED: NORMAL SALINE 1000 ML 1,000 ML IV PRN (05:00)
[2017-05-28] MEDS: HEPARIN SOD (PORCINE) 5,000 UNIT/ML 1 ML SYRINGE SUBCUT SCH ×3 (06:15→21:11)
[2017-05-28 07:49] LABS: HEMATOCRIT 28.5 % (36.0-47.0); HEMOGLOBIN 9.4 g/dL (12.0-15.5); HGB HCT DIFFERENCE -0.3; MEAN CORPUSCULAR HEMOGLOBIN 27.3 pg (27.0-33.4); MEAN CORPUSCULAR HGB CONC 32.8 g/dL (32.0-36.0); MEAN CORPUSCULAR VOLUME 83 fl (80-97); RED BLOOD COUNT 3.43 10^6/uL (3.72-5.28); RED CELL DISTRIBUTION WIDTH 19.3 % (11.5-14.0); WHITE BLOOD COUNT 6.7 10^3/uL (4.0-10.5)
[2017-05-28 07:58] LABS: ALANINE AMINOTRANSFERASE 38 U/L (9-52); ALBUMIN 2.3 g/dL (3.5-5.0); ALKALINE PHOSPHATASE 137 U/L (38-126); ANION GAP 6 (5-19); ASPARTATE AMINO TRANSFERASE 34 U/L (14-36); BILIRUBIN,DIRECT 0.4 mg/dL (0.0-0.4); BILIRUBIN,TOTAL 0.4 mg/dL (0.2-1.3); BLOOD UREA NITROGEN 35 mg/dL (7-20); CALCIUM 9.3 mg/dL (8.4-10.2); CARBON DIOXIDE 29 mmol/L (22-30); CHLORIDE 96 mmol/L (98-107); CREATININE RESULT 2.13 mg/dL (0.52-1.25); GLUCOSE 67 mg/dL (75-110); SODIUM 130.9 mmol/L (137-145); TOTAL PROTEIN 6.5 g/dL (6.3-8.2)
[2017-05-28] MEDS ORDERED: LORAZEPAM INJ 2 MG/1 ML VIAL IV PRN (08:08)
--- NOTE | 2017-05-28 09:02 | PDOC PROGRESS REPORT ---
Subjective Progress Note for:: 05/28/17 Subjective:: Patient is currently doing same still not responding still on the BiPAP.As per very extensive discussions with the family make the patient's more comfort measure Physical Exam Vital Signs: Temp Pulse Resp BP Pulse Ox 99.1 F 67 30 H 113/43 L 96 05/28/17 07:34 05/28/17 07:34 05/28/17 07:34 05/28/17 07:34 05/28/17 07:34 Intake & Output 05/27/17 05/28/17 05/29/17 06:59 06:59 06:59 Intake Total 1710 15 Output Total 3800 Balance -2090 15 Weight 76.6 kg Physical Exam: Currently on a BiPAP not responding General appearance: PRESENT: mild distress Eye exam: PRESENT: PERRLA Respiratory exam: PRESENT: decreased breath sounds Cardiovascular exam: PRESENT: +S1, +S2 GI/Abdominal exam: PRESENT: normal bowel sounds Neurological exam: PRESENT: altered Results Laboratory Results: 05/28/17 05:25 05/28/17 05:25 05/27/17 05/27/17 05/27/17 15:50 16:20 16:20 WBC 6.4 RBC 3.72 Hgb 10.2 L Hct 31.8 L MCV 85 MCH 27.5 MCHC 32.2 RDW 19.6 H Plt Count 154 Carbonic Acid 3.56 H HCO3/H2CO3 Ratio 10:1 ABG pH 7.12 L* ABG pCO2 118.3 H* ABG pO2 64.5 L ABG HCO3 37.3 H ABG O2 Saturation 82.5 L ABG Base Excess 4.8 FiO2 100% Sodium 130.9 L Potassium 3.8 Chloride 95 L Carbon Dioxide 30 Anion Gap 6 BUN 29 H Creatinine 1.72 H Est GFR ( Amer) 34 L Est GFR (Non-Af Amer) 28 L Glucose 176 H Calcium 9.1 Total Bilirubin AST ALT Alkaline Phosphatase Total Protein Albumin 05/27/17 05/28/17 05/28/17 23:09 05:25 05:25 WBC 6.7 RBC 3.43 L Hgb 9.4 L Hct 28.5 L MCV 83 MCH 27.3 MCHC 32.8 RDW 19.3 H Plt Count 149 L Carbonic Acid 1.79 H HCO3/H2CO3 Ratio 18:1 ABG pH 7.35 ABG pCO2 59.5 H ABG pO2 53.3 L ABG HCO3 32.4 H ABG O2 Saturation 85.3 L ABG Base Excess 5.6 FiO2 35% Sodium 130.9 L Potassium 4.0 Chloride 96 L Carbon Dioxide 29 Anion Gap 6 BUN 35 H Creatinine 2.13 H Est GFR ( Amer) 26 L Est GFR (Non-Af Amer) 22 L Glucose 67 L Calcium 9.3 Total Bilirubin 0.4 AST 34 ALT 38 Alkaline Phosphatase 137 H Total Protein 6.5 Albumin 2.3 L 05/26/17 10:05 Catheterized Urine Urine Culture - Final C.albicans/C.dubliniensis Impressions: Head CT 05/25/17 12:39 IMPRESSION: Somewhat limited study as noted above. CHRONIC CHANGES OF ATROPHY AND MICROVASCULAR ISCHEMIA. NO ACUTE PROCESS. Carotid Doppler Study 05/26/17 00:00 IMPRESSION: NO HEMODYNAMICALLY SIGNIFICANT STENOSIS. Head MRI 05/26/17 00:00 IMPRESSION: Limited study as noted above. ATROPHY AND CHRONIC MICRO-VASCULAR ISCHEMIC CHANGES. Abnormal signal intensity is identified in the right parietal region on the diffusion weighted images consistent with an area of recent infarction. Other findings as noted above EVIDENCE OF ACUTE STROKE: Yes Chest X-Ray 05/27/17 00:00 IMPRESSION: Increasing consolidation left lung now with complete opacification of the left hemithorax, new compared to 05/25/2017. Increased opacification right lower hemithorax compared to 05/25/2017. Assessment & Plan - Diagnosis (1) CVA (cerebral vascular accident) Qualifiers: CVA mechanism: unspecified Qualified Code(s): I63.9 - Cerebral infarction, unspecified Is this a current diagnosis for this admission?: Yes Plan: Patient is currently not responding currently on a comfort measure (2) End-stage renal disease on hemodialysis Is this a current diagnosis for this admission?: Yes Plan: Scheduled for the dialysis per the nephrology (3) Left-sided weakness Is this a current diagnosis for this admission?: Yes (4) Adult failure to thrive Is this a current diagnosis for this admission?: Yes (5) Hypertension Qualifiers: Hypertension type: essential hypertension Qualified Code(s): I10 - Essential (primary) hypertension Is this a current diagnosis for this admission?: Yes (6) Sacral decubitus ulcer, stage III Is this a current diagnosis for this admission?: Yes (7) Dementia Qualifiers: Dementia type: unspecified type Is this a current diagnosis for this admission?: Yes - Time Time Spent with patient: 15-24 minutes Medications reviewed and adjusted accordingly: Yes Anticipated discharge: Other Within: Other - Inpatient Certification Medical Necessity: Need Close Monitoring Due to Risk of Patient Decompensation Post Hospital Care: D/C [facility] Documentation - Plan Summary Plan Summary: Patients at this points more respiratory distress severe respiratory acidosis and the stroke with multiple other comorbidity and very extensive discussions with the patient's family patient's currently on a comfort measure
[2017-05-28] MEDS: FOLIC ACID/VITAMIN B COMP W-C CAPSULE PEG SCH (11:52)
[2017-05-28] MEDS: SENNOSIDES/DOCUSATE 8.6-50 MG 1 EACH TABLET PEG SCH (11:52)
[2017-05-28] MEDS: LANSOPRAZOLE 15 MG TAB.RAP.DR PEG SCH (11:52)
[2017-05-28] MEDS: SITAGLIPTIN PHOSPHATE 25 MG TABLET PEG SCH (11:52)
[2017-05-28] MEDS: ASPIRIN 325 MG TABLET PEG SCH (11:52)
[2017-05-28] MEDS: CARVEDILOL 12.5 MG TABLET PEG SCH ×2 (11:52→21:11)
[2017-05-28] MEDS: FLUTICASONE NASAL SPRAY 50 MCG/SPRY 120 SPRAY/16 GM NAREB SCH ×2 (11:52→21:11)
[2017-05-28] MEDS: CITALOPRAM HYDROBROMIDE 20 MG TABLET PEG SCH (11:52)
[2017-05-28] MEDS: TIMOLOL MALEATE 0.5% OPH SOLN 5 ML OU SCH ×2 (11:52→21:11)
[2017-05-28] MEDS: CETIRIZINE HCL ORAL SOLN 5 MG/5 ML UDCUP PEG SCH (11:52)
--- NOTE | 2017-05-28 15:06 | PDOC PROGRESS REPORT ---
Subjective Progress Note for:: 05/28/17 Subjective:: Events since yesterday noted. Patient's respiratory status has deteriorated requiring BiPAP. Patient continues to be hypoxic despite the BiPAP. Patient is DNR and DNI. Patient's mental status has also declined and is currently barely responsive. Her blood pressure is very borderline as well. Patient's chest x-ray yesterday has deteriorated with appearance of complete left lung collapse and worsening of right lung collapse with possible pneumonia, worsening pleural effusion or just simply lung collapse. I discussed the case with Dr. Thrasher yesterday and we both agreed that the patient will not be able to tolerate any aggressive procedure including chest tube placement so the most appropriate thing to do is to put the patient just on comfort measures. Dr. Thrasher has spoken to patient's daughter, Ms. Zavala who agreed and the patient is now made comfort measures only. Due to this overall deteriorating condition as well as the acute CVA with all other chronic comorbid conditions, the patient is not going to be able to tolerate any more hemodialysis treatment at this point. So we are stopping hemodialysis treatment starting today moving forward. When I entered the room one of her patient's daughter and granddaughter are at bedside. Reiterate and update them regarding the patient's condition. They understood that the patient is currently at the end of life situation and agreed to comfort measures status. I also indicated that patient is probably going to last not more than a few days after today. They are pretty comfortable with this dictation and understood. Physical Exam Vital Signs: Temp Pulse Resp BP Pulse Ox 98.1 F 68 20 120/44 L 97 05/28/17 11:14 05/28/17 11:14 05/28/17 14:35 05/28/17 11:14 05/28/17 11:14 Intake & Output 05/27/17 05/28/17 05/29/17 06:59 06:59 06:59 Intake Total 1710 15 0 Output Total 3800 Balance -0 15 0 Weight 76.6 kg Exam: General appearance: PRESENT: Patient is barely responsive, opens her eyes for couple of seconds only. Currently on BiPAP. Head exam: PRESENT: atraumatic, normocephalic Eye exam: PRESENT: conjunctiva pale, PERRLA. ABSENT: scleral icterus Neck exam: ABSENT: JVD Respiratory exam: PRESENT: Bilaterally diminished breath sounds. ABSENT: crackles, rales, rhonchi, unlabored, wheezes Cardiovascular exam: PRESENT: Soft regular rate rhythm -+S1, +S2. ABSENT: diastolic murmur, systolic murmur GI/Abdominal exam: PRESENT: normal bowel sounds, soft. ABSENT: guarding, mass, tenderness Extremities exam: Bilateral decrease upper extremity edema, no lower extremity edema Neurological exam: PRESENT: Lethargic barely opening the eyes as above Skin exam: PRESENT: dry, warm, Results Laboratory Results: 05/28/17 05:25 05/28/17 05:25 05/27/17 05/27/17 05/27/17 15:50 16:20 16:20 WBC 6.4 RBC 3.72 Hgb 10.2 L Hct 31.8 L MCV 85 MCH 27.5 MCHC 32.2 RDW 19.6 H Plt Count 154 Carbonic Acid 3.56 H HCO3/H2CO3 Ratio 10:1 ABG pH 7.12 L* ABG pCO2 118.3 H* ABG pO2 64.5 L ABG HCO3 37.3 H ABG O2 Saturation 82.5 L ABG Base Excess 4.8 FiO2 100% Sodium 130.9 L Potassium 3.8 Chloride 95 L Carbon Dioxide 30 Anion Gap 6 BUN 29 H Creatinine 1.72 H Est GFR ( Amer) 34 L Est GFR (Non-Af Amer) 28 L Glucose 176 H Calcium 9.1 Total Bilirubin AST ALT Alkaline Phosphatase Total Protein Albumin 05/27/17 05/28/17 05/28/17 23:09 05:25 05:25 WBC 6.7 RBC 3.43 L Hgb 9.4 L Hct 28.5 L MCV 83 MCH 27.3 MCHC 32.8 RDW 19.3 H Plt Count 149 L Carbonic Acid 1.79 H HCO3/H2CO3 Ratio 18:1 ABG pH 7.35 ABG pCO2 59.5 H ABG pO2 53.3 L ABG HCO3 32.4 H ABG O2 Saturation 85.3 L ABG Base Excess 5.6 FiO2 35% Sodium 130.9 L Potassium 4.0 Chloride 96 L Carbon Dioxide 29 Anion Gap 6 BUN 35 H Creatinine 2.13 H Est GFR ( Amer) 26 L Est GFR (Non-Af Amer) 22 L Glucose 67 L Calcium 9.3 Total Bilirubin 0.4 AST 34 ALT 38 Alkaline Phosphatase 137 H Total Protein 6.5 Albumin 2.3 L 05/26/17 10:05 Catheterized Urine Urine Culture - Final C.albicans/C.dubliniensis Impressions: Head CT 05/25/17 12:39 IMPRESSION: Somewhat limited study as noted above. CHRONIC CHANGES OF ATROPHY AND MICROVASCULAR ISCHEMIA. NO ACUTE PROCESS. Carotid Doppler Study 05/26/17 00:00 IMPRESSION: NO HEMODYNAMICALLY SIGNIFICANT STENOSIS. Head MRI 05/26/17 00:00 IMPRESSION: Limited study as noted above. ATROPHY AND CHRONIC MICRO-VASCULAR ISCHEMIC CHANGES. Abnormal signal intensity is identified in the right parietal region on the diffusion weighted images consistent with an area of recent infarction. Other findings as noted above EVIDENCE OF ACUTE STROKE: Yes Chest X-Ray 05/27/17 00:00 IMPRESSION: Increasing consolidation left lung now with complete opacification of the left hemithorax, new compared to 05/25/2017. Increased opacification right lower hemithorax compared to 05/25/2017. Assessment & Plan - Diagnosis (1) End-stage renal disease on hemodialysis Is this a current diagnosis for this admission?: Yes Plan: As mentioned above due to the patient's overall declining condition, we will stop any further hemodialysis starting today. Family is aware and agreeable to the plan. (2) Acute respiratory failure with hypoxia Is this a current diagnosis for this admission?: Yes Plan: With complete left lung collapse and worsening right lung collapse likely secondary to pneumonia, pleural effusion or mucous plug causing the collapse. (3) Fluid overload Qualifiers: Hypervolemia type: unspecified Qualified Code(s): E87.70 - Fluid overload, unspecified Is this a current diagnosis for this admission?: Yes (4) Hyponatremia Is this a current diagnosis for this admission?: Yes Plan: Likely due to fluid overload. (5) CVA (cerebral vascular accident) Qualifiers: CVA mechanism: unspecified Qualified Code(s): I63.9 - Cerebral infarction, unspecified Is this a current diagnosis for this admission?: Yes Plan: Reported new onset of left-sided weakness. Defer to primary service (6) Left-sided weakness Is this a current diagnosis for this admission?: Yes (7) Anemia in chronic kidney disease Is this a current diagnosis for this admission?: Yes (8) Diabetes mellitus type 2 in obese Is this a current diagnosis for this admission?: Yes (9) Adult failure to thrive Is this a current diagnosis for this admission?: Yes (10) Hypertension Qualifiers: Hypertension type: essential hypertension Qualified Code(s): I10 - Essential (primary) hypertension Is this a current diagnosis for this admission?: Yes (11) Dementia Qualifiers: Dementia type: Alzheimer's disease Alzheimer's disease onset: unspecified onset Dementia behavioral disturbance: without behavioral disturbance Qualified Code(s): G30.9 - Alzheimer's disease, unspecified Is this a current diagnosis for this admission?: Yes - Notes Notes: No further hemodialysis moving forward. Totally agree with comfort measures only. Prognosis is grim and patient is more rebound. We will sign off at this time. - Time Time with patient: 15-25 minutes
[2017-05-28] MEDS: CEFEPIME HCL 1 GM in DEXTROSE 5%-WATER 50 ML IV SCH (17:46)
[2017-05-28] MEDS: MORPHINE SULFATE 10 MG/ML INJ IV PRN (19:33)
[2017-05-29] MEDS: HEPARIN SOD (PORCINE) 5,000 UNIT/ML 1 ML SYRINGE SUBCUT SCH ×3 (05:05→22:16)
[2017-05-29] MEDS: FLUTICASONE NASAL SPRAY 50 MCG/SPRY 120 SPRAY/16 GM NAREB SCH ×2 (09:18→22:16)
[2017-05-29] MEDS: ASPIRIN 325 MG TABLET PEG SCH (09:18)
[2017-05-29] MEDS: CITALOPRAM HYDROBROMIDE 20 MG TABLET PEG SCH (09:18)
[2017-05-29] MEDS: TIMOLOL MALEATE 0.5% OPH SOLN 5 ML OU SCH ×2 (09:18→22:16)
[2017-05-29] MEDS: SENNOSIDES/DOCUSATE 8.6-50 MG 1 EACH TABLET PEG SCH (09:18)
[2017-05-29] MEDS: CARVEDILOL 12.5 MG TABLET PEG SCH ×2 (09:18→22:16)
[2017-05-29] MEDS: CETIRIZINE HCL ORAL SOLN 5 MG/5 ML UDCUP PEG SCH (09:18)
[2017-05-29] MEDS: LANSOPRAZOLE 15 MG TAB.RAP.DR PEG SCH (09:18)
[2017-05-29] MEDS: FOLIC ACID/VITAMIN B COMP W-C CAPSULE PEG SCH (09:18)
[2017-05-29] MEDS: SITAGLIPTIN PHOSPHATE 25 MG TABLET PEG SCH (09:18)
--- NOTE | 2017-05-29 13:43 | PDOC PROGRESS REPORT ---
Subjective Progress Note for:: 05/29/17 Subjective:: Patient's currently on a comfort measure currently laying in the bed with a nasal cannula Physical Exam Vital Signs: Temp Pulse Resp BP Pulse Ox 98.8 F 59 L 22 H 128/56 H 99 05/29/17 07:28 05/29/17 07:28 05/29/17 07:28 05/29/17 07:28 05/29/17 07:28 Intake & Output 05/28/17 05/29/17 05/30/17 06:59 06:59 06:59 Intake Total 15 15 0 Balance 15 15 0 Weight 76 kg General appearance: PRESENT: mild distress Eye exam: PRESENT: PERRLA Respiratory exam: PRESENT: decreased breath sounds Cardiovascular exam: PRESENT: +S1, +S2 GI/Abdominal exam: PRESENT: normal bowel sounds Neurological exam: PRESENT: altered Results Laboratory Results: 05/28/17 05:25 05/28/17 05:25 Impressions: Head CT 05/25/17 12:39 IMPRESSION: Somewhat limited study as noted above. CHRONIC CHANGES OF ATROPHY AND MICROVASCULAR ISCHEMIA. NO ACUTE PROCESS. Carotid Doppler Study 05/26/17 00:00 IMPRESSION: NO HEMODYNAMICALLY SIGNIFICANT STENOSIS. Head MRI 05/26/17 00:00 IMPRESSION: Limited study as noted above. ATROPHY AND CHRONIC MICRO-VASCULAR ISCHEMIC CHANGES. Abnormal signal intensity is identified in the right parietal region on the diffusion weighted images consistent with an area of recent infarction. Other findings as noted above EVIDENCE OF ACUTE STROKE: Yes Chest X-Ray 05/27/17 00:00 IMPRESSION: Increasing consolidation left lung now with complete opacification of the left hemithorax, new compared to 05/25/2017. Increased opacification right lower hemithorax compared to 05/25/2017. Assessment & Plan - Diagnosis (1) CVA (cerebral vascular accident) Qualifiers: CVA mechanism: unspecified Qualified Code(s): I63.9 - Cerebral infarction, unspecified Is this a current diagnosis for this admission?: Yes (2) End-stage renal disease on hemodialysis Is this a current diagnosis for this admission?: Yes Plan: Currently hold the dialysis per Dr. Alonzo while patient is currently on a comfort measure (3) Left-sided weakness Is this a current diagnosis for this admission?: Yes (4) Adult failure to thrive Is this a current diagnosis for this admission?: Yes (5) Hypertension Qualifiers: Hypertension type: essential hypertension Qualified Code(s): I10 - Essential (primary) hypertension Is this a current diagnosis for this admission?: Yes (6) Sacral decubitus ulcer, stage III Is this a current diagnosis for this admission?: Yes (7) Dementia Qualifiers: Dementia type: unspecified type Is this a current diagnosis for this admission?: Yes - Time Time Spent with patient: Less than 15 minutes Medications reviewed and adjusted accordingly: Yes Anticipated discharge: Other Within: Other - Inpatient Certification Medical Necessity: Significant Comorbidiites Make Outpatient Treatment Too Risky Post Hospital Care: D/C [employer] Documentation - Plan Summary Plan Summary: Continues to comfort care
[2017-05-29] MEDS: CEFEPIME HCL 1 GM in DEXTROSE 5%-WATER 50 ML IV SCH (17:08)
[2017-05-30] MEDS: HEPARIN SOD (PORCINE) 5,000 UNIT/ML 1 ML SYRINGE SUBCUT SCH ×2 (06:25→13:42)
[2017-05-30] MEDS: ASPIRIN 325 MG TABLET PEG SCH (10:10)
[2017-05-30] MEDS: CITALOPRAM HYDROBROMIDE 20 MG TABLET PEG SCH (10:10)
[2017-05-30] MEDS: SITAGLIPTIN PHOSPHATE 25 MG TABLET PEG SCH (10:10)
[2017-05-30] MEDS: SENNOSIDES/DOCUSATE 8.6-50 MG 1 EACH TABLET PEG SCH (10:10)
[2017-05-30] MEDS: CARVEDILOL 12.5 MG TABLET PEG SCH (10:10)
[2017-05-30] MEDS: FLUTICASONE NASAL SPRAY 50 MCG/SPRY 120 SPRAY/16 GM NAREB SCH (10:10)
[2017-05-30] MEDS: FOLIC ACID/VITAMIN B COMP W-C CAPSULE PEG SCH (10:10)
[2017-05-30] MEDS: LANSOPRAZOLE 15 MG TAB.RAP.DR PEG SCH (10:10)
[2017-05-30] MEDS: TIMOLOL MALEATE 0.5% OPH SOLN 5 ML OU SCH (10:10)
[2017-05-30] MEDS: CETIRIZINE HCL ORAL SOLN 5 MG/5 ML UDCUP PEG SCH (10:10)
--- NOTE | 2017-05-30 15:03 | PDOC PROGRESS REPORT ---
Subjective Progress Note for:: 05/30/17 Subjective:: Patient's currently on a comfort measure currently laying in the bed with a nasal cannula Physical Exam Vital Signs: Temp Pulse Resp BP Pulse Ox 98.8 F 66 11 L 120/49 L 99 05/29/17 07:28 05/30/17 02:00 05/29/17 20:03 05/29/17 20:03 05/30/17 00:27 Intake & Output 05/29/17 05/30/17 05/31/17 06:59 06:59 06:59 Intake Total 15 5 Balance 15 5 Weight 76 kg 74.8 kg Results Laboratory Results: 05/28/17 05:25 05/28/17 05:25 Impressions: Head CT 05/25/17 12:39 IMPRESSION: Somewhat limited study as noted above. CHRONIC CHANGES OF ATROPHY AND MICROVASCULAR ISCHEMIA. NO ACUTE PROCESS. Carotid Doppler Study 05/26/17 00:00 IMPRESSION: NO HEMODYNAMICALLY SIGNIFICANT STENOSIS. Head MRI 05/26/17 00:00 IMPRESSION: Limited study as noted above. ATROPHY AND CHRONIC MICRO-VASCULAR ISCHEMIC CHANGES. Abnormal signal intensity is identified in the right parietal region on the diffusion weighted images consistent with an area of recent infarction. Other findings as noted above EVIDENCE OF ACUTE STROKE: Yes Chest X-Ray 05/27/17 00:00 IMPRESSION: Increasing consolidation left lung now with complete opacification of the left hemithorax, new compared to 05/25/2017. Increased opacification right lower hemithorax compared to 05/25/2017. Assessment & Plan - Diagnosis (1) CVA (cerebral vascular accident) Qualifiers: CVA mechanism: unspecified Qualified Code(s): I63.9 - Cerebral infarction, unspecified Is this a current diagnosis for this admission?: Yes (2) End-stage renal disease on hemodialysis Is this a current diagnosis for this admission?: Yes (3) Left-sided weakness Is this a current diagnosis for this admission?: Yes (4) Adult failure to thrive Is this a current diagnosis for this admission?: Yes (5) Hypertension Qualifiers: Hypertension type: essential hypertension Qualified Code(s): I10 - Essential (primary) hypertension Is this a current diagnosis for this admission?: Yes (6) Sacral decubitus ulcer, stage III Is this a current diagnosis for this admission?: Yes (7) Dementia Qualifiers: Dementia type: unspecified type Is this a current diagnosis for this admission?: Yes - Plan Summary Plan Summary: Patient is currently on a comfort care
[2017-05-30] MEDS: MORPHINE SULFATE 10 MG/ML INJ IV PRN ×2 (16:02→21:11)
[2017-05-30 21:24] VITALS: BP 115/41
--- NOTE | 2017-06-06 12:39 | Death Summary ---
Summary Date : 05/31/17 Autopsy: No Resuscitation Status: Do Not Resuscitate - Final Diagnosis (1) CVA (cerebral vascular accident) Is this a current diagnosis for this admission?: Yes (2) End-stage renal disease on hemodialysis Is this a current diagnosis for this admission?: Yes (3) Left-sided weakness Is this a current diagnosis for this admission?: Yes (4) Adult failure to thrive Is this a current diagnosis for this admission?: Yes (5) Hypertension Is this a current diagnosis for this admission?: Yes (6) Sacral decubitus ulcer, stage III Is this a current diagnosis for this admission?: Yes (7) Dementia Is this a current diagnosis for this admission?: Yes Hospital Course:: This is a 87-year-old female with a significant medical problems came to the emergency department with altered mental status with the diagnosed with the Acute CVA and the patient's at this points deteriorating and patient underwent for that hemodialysis but getting more worse with the respiratory distress and respiratory failure and very extensive discussions with the patient's familyAnd patient was put on a comfort care
== END 2017-05-31 00:55 | disposition expired | DRG 64 ==
LOC: ER 12:38 → UNDOADMIN 15:26 → EH 15:26 → 3S 16:44 → EH 17:07 → 3W 05-26 18:44
PROVIDERS: ADMIT Internal Medicine; ATTEND Internal Medicine
PROC: 5A1D00Z (ICD-10-PCS; 2017-05-26)
PROC: 5A09357 Assistance with Respiratory Ventilation, Less than 24 Consecutive Hours, Continuous Positive Airway Pressure (ICD-10-PCS; principal; 2017-05-28)
DX: I63.8 Other cerebral infarction (principal); N18.6 End stage renal disease; J96.01 Acute respiratory failure with hypoxia; G81.94 Hemiplegia, unspecified affecting left nondominant side; Z51.5 Encounter for palliative care; I12.0 Hypertensive chronic kidney disease with stage 5 chronic kidney disease or end stage renal disease; E87.1 Hypo-osmolality and hyponatremia; N39.0 Urinary tract infection, site not specified; E11.22 Type 2 diabetes mellitus with diabetic chronic kidney disease; D63.1 Anemia in chronic kidney disease; R62.7 Adult failure to thrive; L89.152 Pressure ulcer of sacral region, stage 2; I25.10 Atherosclerotic heart disease of native coronary artery without angina pectoris; G30.9 Alzheimer's disease, unspecified; F02.80 Dementia in other diseases classified elsewhere, unspecified severity, without behavioral disturbance, psychotic disturbance, mood disturbance, and anxiety; E78.5 Hyperlipidemia, unspecified; M19.90 Unspecified osteoarthritis, unspecified site; Z79.82 Long term (current) use of aspirin; Z79.4 Long term (current) use of insulin; Z79.899 Other long term (current) drug therapy; Z99.2 Dependence on renal dialysis; Z86.14 Personal history of Methicillin resistant Staphylococcus aureus infection; Z95.5 Presence of coronary angioplasty implant and graft; Z88.1 Allergy status to other antibiotic agents
CPT/HCPCS: 36415; 36600; 70450; 70551; 71010; 80048; 80053; 80061; 81001; 82550; 82553; 82803; 82962; 84484; 85025; 85027; 85610; 85730; 87040; 87086; 93005; 93010; 93306; 93880; 94660; 99285; G8978-GP; G8979-GP; G8980-GP; G8987-GO; G8988-GO; G8989-GO; G8996-GN; G8997-GN; G8998-GN; J0692; J1644; J1815; J1940; J2270; J3480; J3490